=== PATIENT | male | born 1940 | race Asian ===

== ENCOUNTER 2017-08-20 17:45 | Inpatient (IN) ==
[2017-09-14] MEDS ORDERED: Magnesium Sulfate Inj 2 GM in Sodium Chlor 0.9% Inj 96 ML IV.SIG PRN ×2
[2017-09-14] MEDS ORDERED: Insulin NovoLIN Regular Correctional Sugar Inj SQ SCH
[2017-09-14] MEDS ORDERED: Magnesium Sulfate Inj 4 GM in Sodium Chlor 0.9% Inj 92 ML IV.SIG PRN ×2
[2017-09-14] MEDS ORDERED: Magnesium Oxide 400 MG Tablet PO PRN
[2017-09-14] MEDS ORDERED: Labetalol HCl Inj 100 MG/20 ML Vial IV.PUSH PRN
[2017-09-14] MEDS ORDERED: Potassium Phosphate Inj 30 MMOL in Sodium Chlor 0.9% Inj 250 ML IV.SIG PRN ×2
[2017-09-14] MEDS ORDERED: Sodium Phosphate Inj 30 MMOL in Sodium Chlor 0.9% Inj 250 ML IV.SIG PRN ×2
[2017-09-14] MEDS ORDERED: Naloxone Inj 0.4 MG/ML Vial IV.PUSH PRN
[2017-09-14] MEDS ORDERED: Bisacodyl 10 MG Supp RECTAL PRN
[2017-09-14] MEDS ORDERED: Insulin NovoLOG Aspart Correctional Sugar Inj SQ ONE (00:17)
[2017-09-14] MEDS: Potassium Chloride Inj 20 MEQ, Sodium Chloride 23.4% Inj 38.5 MEQ in Water for Inj, Ste... IV.SIG SCH ×2 (03:45→17:44)
[2017-09-14] MEDS: Chlorhexidine Gluconate 2% 1 Pack (2 Cloths) TOPICAL SCH (03:46)
[2017-09-14] MEDS: Oral Hygiene Kit OROPHARYNG SCH ×3 (05:20→17:10)
[2017-09-14] MEDS: Heparin - SQ 10,000 UNITS/ML Vial SQ SCH ×3 (05:35→21:27)
[2017-09-14] MEDS: Artificial Tears Opth Drops 15 ML Bottle EACH EYE SCH ×3 (05:36→21:28)
[2017-09-14] MEDS ORDERED: niCARdipine Inj 25 MG in Sodium Chlor 0.9% Inj 250 ML IV.SIG PRN (09:00)
[2017-09-14] MEDS ORDERED: Digoxin Inj 500 MCG/2 ML Ampul IV.PUSH SCH (09:00)
[2017-09-14] MEDS ORDERED: Potassium Phosphate 500 MG Soluble Tablet PO PRN ×2 (09:00)
[2017-09-14] MEDS ORDERED: Potassium Chlor 40 mEq Premix 40 MEQ/100 ML PIGGYBACK IV.SIG PRN ×2 (09:00)
[2017-09-14] MEDS ORDERED: Potassium Chloride 25 MEQ Effervescent Tablet PO PRN ×2 (09:00)
[2017-09-14] MEDS ORDERED: Senna/Docusate Sodium 8.6/50 MG Tablet PO SCH (09:00)
[2017-09-14] MEDS: MethylPREDNISolone Sod Succinate Inj 40 MG/ML Vial IV.PUSH SCH ×2 (09:17→20:26)
[2017-09-14] MEDS: Pantoprazole Inj 40 MG Vial IV.PUSH SCH (09:19)
[2017-09-14] MEDS: Metoprolol Tartrate 25 MG Tablet PO SCH ×2 (09:19→17:10)
[2017-09-14] MEDS: DIGOXIN 0.125 MG/2.5 ML PO SCH (09:21)
[2017-09-14] MEDS: Beneprotein Powder Packet G-TUBE SCH ×3 (09:22→17:11)
[2017-09-14] MEDS: Chlorhexidine 0.12% Oral Kit 15 ML UDC SWISH-SPIT SCH ×2 (09:39→20:27)
[2017-09-14] MEDS: Polyethylene Glycol 3350 17 GM Packet PO SCH ×2 (09:41→20:28)
[2017-09-14] MEDS: Senna/Docusate Sodium 8.6/50 MG Tablet PO SCH ×2 (09:41→20:29)
[2017-09-14] MEDS: Insulin NovoLOG Aspart Correctional Sugar Inj SQ SCH ×2 (12:00→17:51)
--- NOTE | 2017-09-14 12:00 | P.PNCC ---
Subjective Subjective Remarks/Hospital Course: This is a 77-year-old [place] male/Mandarin speaking only. Date of admission 08/21/2017. Date of consultation 08/23/2017. Past medical history is documented as hypertension, gout and diabetes mellitus. He is on no home medications. He does have remote history of tuberculosis 10 years ago. He quit tobacco use 20 years ago. He presented to [facility] on 08/21/2017 with a 3-4 days of intermittent pain in this region that acutely acutely worsened on 08/20 . They state the pain is in the right upper quadrant and radiates to the upper thorax and around his back. Hospital workup included a CT pulmonary angiogram which revealed bilateral emphysema. Multiple bilateral pulmonary nodules present with the largest in the right lung measuring 2.8 cm and the largest in the left lung measuring 2.6 cm. Severe compressive atelectasis in the right lower lobe. Moderate-sized pulmonary effusion. Pleural thickening in the anterior inferior hemothorax. Right paratracheal lymph node 15 mm. 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 No lytic bone lesions. Also noted significant coronary artery and aortic atherosclerotic calcifications. Patient was evaluated by hematology. Recommended lung biopsy when stable. She has become increasingly short of breath and was [place] [facility] [place] [facility] at 70%. Patient became less responsive and we were consulted. Patient required intubation/central line placement is currently having a right pigtail catheter placed to remove fluid from right lung. 08/24: hypotensive this AM requiring levophed at 8 mcg/min. drained 600cc of serosanguinous fluid out of chest tube. responded successfully to straight-leg challenge. intubated, sedated. remains very critically ill. 08/25: Afebrile. Off all antihypertensives and vasopressin. Currently normal saline at 100 cc an hour. On propofol and fentanyl drips. 08/26: Afebrile. No tonsillar creatinine currently at 20 cc an hour. Remains on increased propofol drip at 40 mcg/kg/min secondary to severe agitation overnight and on attempted spontaneous breathing trials. Will try dexmedetomidine attempt to wean today. 08/27: Worsening lung infiltrates associated with hydration. Afebrile. Known diastolic dysfunction. He appears to be exquisitely sensitive to fluid balance. Presently converting to Precedex and will try spontaneous breathing trials. 08/28: Continued worsening bilateral lung infiltrates. IV fluid has been stopped yesterday, will add additional diuretics. Diffusion gradient worsened, unable to wean from ventilator. 08/29: Mild improvement in lung infiltrates after diuresis without harming renal function. Remains ventilator dependent. Biopsy yesterday, results pending. 08/30: Worsening gas exchange with deteriorating diffusion capacity and requirements for increased inspired oxygen concentration. This all despite 2 L diuresis. Await pathology results. 08/31: Lung infiltrates resolving with diuresis. Continues to behave like diastolic heart failure. Contraction alkalosis is developing will add a carbonic anhydrase inhibitor for a couple of days. T-max 100.8 but for the most part he has been afebrile. Lung mass does appear to be a malignancy. Agree with attempt to rebiopsy at some point. We will continue to diuresis until his kidneys squeak. At 7-10 days of antibiotics it may be best to stop treatment and reculture for fevers. I will defer to the pulmonary service. 09/01: remains intubated and sedated. continues to fail any weaning attempts. consulted palliative to assist in goals of care: may need tracheostomy for further aggressive care. 09/02: palliative meeting with family again today. no improvements. it has been greater than 10 days of full empiric antibiotics: will discontinue and re- culture for fever. 09/03: chest tube on water seal with minimal output. cxr unchanged. CT removed today on my eval. no other changes or improvements. unlikely to have favorable outcome. quite hypercarbic despite full vent support: will make changes to ventilation to assist with hypercarbic. 09/04: Remains sedated, orally intubated on mechanical ventilation. 09/05: Remains sedated, orally intubated on mechanical ventilation. Failed CPAP trials yesterday. 09/06: Sedated, arousable, orally intubated on mechanical ventilation. Failed CPAP trials yesterday. Family wishes to continue aggressive care and desire trach and PEG. 09/07: T-max 100.3. One bowel movement yesterday. Failed CPAP trials yesterday. OG tube plugged overnight and able to place new feeding tube at the present time. We will switch all medications to IV at the present time including amiodarone drip at 0.5 mg/min. Check digoxin level prior to resuming IV. Subjective: 6/25: T-max 99.2. Currently afebrile. One bowel movement overnight. Plan for percutaneous tracheostomy today. GI consult for PEG placement. CT chest revealed small bilateral pleural effusions. Persistent right middle lobe mass which we will consult IR again for rebiopsy. Will ask pulmonary to see again 09/09: Remains on full vent support more critical today increasing oxygen requirement FiO2 at 65 of have increase PEEP to 10 to attempt wean oxygen. Air entry markedly diminished bilaterally. Chest x-ray shows bilateral prominent interstitial infiltrates. Fluid up by approximately 10 kg. I will discontinue half-normal saline. Lasix 40 mg IV 1 09/10: Patient remains critical showing agonal breathing on the ventilator. Bilateral coarse breath sounds. Chest x-ray shows bilateral patchy infiltrates improved left effusion after thoracentesis and removal of 1 L of fluid. However FiO2 requirement remains high at 65%. UO 1.5L in 24 hours. Lab work pending. IV steroids started for probable COPD exacerbation given history of smoking 09/11: Remains critical but slightly more stable. Breathing pattern has improved and oxygenation has improved after starting IV steroids for COPD exacerbation and thoracentesis on 09/09/2017. Currently FiO2 down to 50%, PEEP at 10. We will further wean. Sodium increased to 151 start quarter normal saline, increase Lasix. Family wished to proceed with full code. PEG today 09/12: Remains intubated sedated with propofol. Urine output 1.8 L. BUN/ creatinine slightly increased today 72/1.34. Will reduce Lasix dose also reduce Solu-Medrol. Vent dyssynchrony has improved but FiO2 remains high at 55% 09/13: Off all sedation for 24 hours. Apparently patient notes has had one family is at bedside asking questions. BUN/creatinine slightly improved 71/ 1.14 from 72/1.34. WBC count slightly improved to 20.7. FiO2 at 45% chest x- ray shows some interval improvement. Also Na improved to 147 09/14: Remains intubated off sedation. Slightly tachypneic on pressure support . Urine output approximately 1500 mL in 24 hours Objective Vital Signs / I&O: Vital Signs 09/14/17 00:00 09/14/17 03:50 09/14/17 08:00 Pulse Rate 88 77 Respiratory Rate 23 Pulse Oximetry 95 09/14/17 08:15 09/14/17 08:29 09/14/17 10:00 Pulse Rate 106 H 83 Respiratory Rate 36 H 35 H Pulse Oximetry 95 Intake & Output 09/13/17 09/14/17 09/14/17 18:59 06:59 18:59 Intake Total 1070 / 1070 Output Total 1450 / 1450 Balance -380 / -380 Intake: Tube Feeding 610 / 610 Water Bolus Amount 460 / 460 Output: Urine 1450 / 1450 Other: Date of Last Bowel Movement 09/13/17 09/13/17 Result Diagrams: 09/13/17 03:14 09/13/17 03:14 Other Results: GENERAL: 77-year-old male currently ventilated via trach, appears critical SKIN: Warm and dry. No rash HEAD: Atraumatic. Normocephalic. EYES: Pupils equal and round about 2 mm bilaterally reactive. No scleral icterus. No injection or drainage. ENT: No nasal bleeding or discharge. Mucous membranes dry. NECK: Trachea midline. Trach site CDI CARDIOVASCULAR: Heart rate well controlled now. S1, S3 no S4. Without murmur. No JVD LUNGS: Coarse rhonchorous breath sounds, wheezes bilaterally improved. On PSV GASTROINTESTINAL: Abdomen soft, non-tender, nondistended. No guarding. MUSCULOSKELETAL: Extremities without significant peripheral edema. No obvious deformities. NEUROLOGICAL: Off all sedation. Slight withdrawal to pain. Appears to be aware when family is talking to him. He nods his head when family asked him questions Assessment and Plan - Assessment and Plan Plan: A/P Assessment and Plan Neuro/Psych: Acute toxic metabolic encephalopathy Head CT 08/23: 2 questionable tiny focal hemorrhages. MRI of brain 08/26 chronic small vessel ischemic and atrophic changes CT brain 09/05 revealed bilateral maxillary sinusitis. No other acute finding EEG 09/03 revealed severe encephalopathy. No epileptiform activity Acetaminophen 650 mg by tube every 6 hours as needed fever versus. Ofirmev 1 g IV every 6 hours as needed n.p.o. Off all sedation for last 24 hours CV: Uncontrolled hypertension septic shock- resolved Atherosclerotic coronary artery disease Atrial fibrillation Elevated troponin downward trend Fluid overload Currently off all vasopressors, patient is hypertensive On IV Lasix 20 mg IV daily Free water replacement with 1/4 NS at 75 ml per hour. Free H2O 200 ml q6h Use Cardene infusion if needed to control blood pressure Amiodarone Discontinued 09/07 secondary to bradycardia and pauses Continue metoprolol tartrate 2.5 mg IV every 6 hours, changed to metoprolol 25 mg p.o. to Resumed digoxin at 0.125 mg daily with daily digoxin check for 3 days Dig level 09/07.- 2.1. Recheck 09/09 1.4, 0.8 09/12/17 Home medication is NITRENDIPINE 10 mg by mouth daily Resp: Acute hypoxic hypercapnic respiratory failure COPD with exacerbation/Emphysema Bilateral pleural effusion/status post chest tube right-sided transudative in nature. Chest tube removed 09/04 Multiple bilateral pulmonary masses vs infiltrate, RML mass vs consolidation Pulmonary edema Current vent setting PRVC. Attempt pressure support ventilation with high support 01/11. Continue IV Solu-Medrol 40 q12, inhaled budesonide Albuterol/ipratropium aerosols every 4 hours with albuterol aerosols every 2 hours as needed dyspnea CT pulmonary angiogram revealed 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 Right middle lobe 2.7 x 2.2 x 7's. Spiculated. Left lingula is 3.4 x 3.20 cm. Underlying pronounced emphysematous type changes throughout lung larios. Right pleural effusion. CT thorax 09/08 revealed multiple areas of consolidation bilaterally. Mild bilateral pleural effusions. Evidence of prior granulomatous disease. Focal consolidation or mass in the right middle lobe that appears unchanged. Lung mass biopsied on August 28 -results - CHRONIC INFLAMMATORY AND REACTIVE FIBROBLASTIC TISSUE CONTAINING ENTRAPPED BENIGN EPITHELIUM reconsult IR 09/08 for repeat biopsy Followed by Dr. Hrady/pulmonology. Reconsulted 09/08, recommended repeat CT in 4 weeks. Hold off the IR guided biopsy time due to unstable respiratory status s/p percutaneous tracheostomy 09/08 ([place]) Status post thoracentesis left side 09/09 with 1 L fluid removed. No evidence of infection Will need LTAC placement GI: Hypoalbuminemia Elevated total protein s/p PEG 09/11. Tolerating tube feeds with Glucerna, free water flushes today IV pantoprazole. Docusate sodium/senna 1 tablet twice daily for bowel regimen along with polyethylene glycol 17 g Twice daily and lactulose 30 cc twice daily : Urinary retention, possible urinary stricture Acute kidney injury Maintain Larson catheter. Monitor urine output, Accurate I's and O's significant difficulty due to obstruction which may be urethral stricture which prevented serial i/o. replaced Larson catheter. IV Lasix dose reduced due to worsening BUN/creatinine as above Avoid nephrotoxic drugs Endo: Diabetes mellitus Hyperglycemia History of gout Sliding scale insulin with NovoLog low regimen to maintain euglycemia Holding home medications of allopurinol 300 mg daily and colchicine 0.6 mg as needed Holding home medications of metformin 5 mg twice daily Heme: Leukocytosis Normocytic anemia Monitor CBC daily. Follow trends Coags within normal limits ID: s/p full course abx. Status post bronchoscopy 09/03 cultures negative Blood culture from 08/26 no growth to date Sputum 09/05 no growth Influenza a and B 09/07 Bronchial wash negative FEN: Hypernatremia Quarter normal saline and free water replacement as above Replace electrolytes as clinically indicated per ICU electrolyte protocol Monitor CMP Access Peripheral IV. Central line if indicated Prophylaxis -GI -lV pantoprazole while in p.o. DVT -SCD/heparin subcutaneous 5000 units 3 times a day. No signs of bleeding on MRI brain Patient remains critical but showing some signs of improvement including improving oxygenation after starting IV steroids for COPD exacerbation. Attempt slow ventilator wean. Prognosis appears poor with multiorgan dysfunction, and underlying probable lung CA-previous biopsy was negative Level 3
[2017-09-14] MEDS ORDERED: Dextrose 50% in Water 50 ML Vial IV.PUSH PRN ×2 (13:23)
[2017-09-15] MEDS: Oral Hygiene Kit OROPHARYNG SCH ×4 (00:42→16:26)
[2017-09-15] MEDS: Metoprolol Tartrate 25 MG Tablet PO SCH ×3 (01:37→16:27)
[2017-09-15 03:51] LABS: Hematocrit 31.3 % (39.0-51.0); Mean Corpuscular Hemoglobin 28.2 pg (27.0-34.0); Mean Platelet Volume 7.7 fL (7.0-11.0); Platelet Count 362 th/mm3 (150-450); Red Blood Count 3.56 mil/mm3 (4.50-5.90); Red Cell Distribution Width 15.2 % (11.6-17.2)
[2017-09-15] MEDS: Chlorhexidine Gluconate 2% 1 Pack (2 Cloths) TOPICAL SCH (04:29)
[2017-09-15] MEDS: Potassium Chloride Inj 20 MEQ, Sodium Chloride 23.4% Inj 38.5 MEQ in Water for Inj, Ste... IV.SIG SCH (04:30)
[2017-09-15 04:34] LABS: Alanine Aminotransferase 37 U/L (12-78); Albumin 1.8 g/dL (3.4-5.0); Alkaline Phosphatase 135 U/L (45-117); Anion Gap 7 meq/L (5-15); Aspartate Aminotransferase 23 U/L (15-37); Blood Urea Nitrogen 56 mg/dL (7-18); Calcium 7.9 mg/dL (8.5-10.1); Carbon Dioxide 32.2 meq/L (21.0-32.0); Chloride 102 meq/L (98-107); Digoxin 1.7 ng/mL (0.8-2.0); Glomerular Filtration Rate 80 mL/min (>89); Glucose,Random 294 mg/dL (74-106); Potassium 5.1 meq/L (3.5-5.1); Sodium 141 meq/L (136-145); Total Protein 7.2 g/dL (6.4-8.2)
[2017-09-15] MEDS: Insulin NovoLOG Aspart Correctional Sugar Inj SQ SCH ×3 (06:23→18:20)
[2017-09-15] MEDS: Heparin - SQ 10,000 UNITS/ML Vial SQ SCH ×3 (06:26→22:28)
[2017-09-15] MEDS: Artificial Tears Opth Drops 15 ML Bottle EACH EYE SCH ×3 (06:27→22:29)
[2017-09-15] MEDS: MethylPREDNISolone Sod Succinate Inj 40 MG/ML Vial IV.PUSH SCH ×2 (08:47→22:27)
[2017-09-15] MEDS: Pantoprazole Inj 40 MG Vial IV.PUSH SCH (08:47)
[2017-09-15] MEDS: DIGOXIN 0.125 MG/2.5 ML PO SCH (08:52)
[2017-09-15] MEDS: Polyethylene Glycol 3350 17 GM Packet PO SCH ×2 (08:53→22:15)
[2017-09-15] MEDS: Beneprotein Powder Packet G-TUBE SCH ×3 (08:53→18:29)
[2017-09-15] MEDS: Chlorhexidine 0.12% Oral Kit 15 ML UDC SWISH-SPIT SCH ×2 (08:53→22:27)
[2017-09-15] MEDS: Senna/Docusate Sodium 8.6/50 MG Tablet PO SCH ×2 (08:54→22:15)
--- NOTE | 2017-09-15 10:17 | P.PNCC ---
Subjective Subjective Remarks/Hospital Course: This is a 77-year-old Citizen Of [place] male/Mandarin speaking only. Date of admission 08/21/2017. Date of consultation 08/23/2017. Past medical history is documented as hypertension, gout and diabetes mellitus. He is on no home medications. He does have remote history of tuberculosis 10 years ago. He quit tobacco use 20 years ago. He presented to [facility] on 08/21/2017 with a 3-4 days of intermittent pain in this region that acutely acutely worsened on 08/20 . They state the pain is in the right upper quadrant and radiates to the upper thorax and around his back. Hospital workup included a CT pulmonary angiogram which revealed bilateral emphysema. Multiple bilateral pulmonary nodules present with the largest in the right lung measuring 2.8 cm and the largest in the left lung measuring 2.6 cm. Severe compressive atelectasis in the right lower lobe. Moderate-sized pulmonary effusion. Pleural thickening in the anterior inferior hemothorax. Right paratracheal lymph node 15 mm. 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 No lytic bone lesions. Also noted significant coronary artery and aortic atherosclerotic calcifications. Patient was evaluated by hematology. Recommended lung biopsy when stable. She has become increasingly short of breath and was transferred from a [facility] to [facility] at 70%. Patient became less responsive and we were consulted. Patient required intubation/central line placement is currently having a right pigtail catheter placed to remove fluid from right lung. 08/24: hypotensive this AM requiring levophed at 8 mcg/min. drained 600cc of serosanguinous fluid out of chest tube. responded successfully to straight-leg challenge. intubated, sedated. remains very critically ill. 08/25: Afebrile. Off all antihypertensives and vasopressin. Currently normal saline at 100 cc an hour. On propofol and fentanyl drips. 08/26: Afebrile. No tonsillar creatinine currently at 20 cc an hour. Remains on increased propofol drip at 40 mcg/kg/min secondary to severe agitation overnight and on attempted spontaneous breathing trials. Will try dexmedetomidine attempt to wean today. 08/27: Worsening lung infiltrates associated with hydration. Afebrile. Known diastolic dysfunction. He appears to be exquisitely sensitive to fluid balance. Presently converting to Precedex and will try spontaneous breathing trials. 08/28: Continued worsening bilateral lung infiltrates. IV fluid has been stopped yesterday, will add additional diuretics. Diffusion gradient worsened, unable to wean from ventilator. 08/29: Mild improvement in lung infiltrates after diuresis without harming renal function. Remains ventilator dependent. Biopsy yesterday, results pending. 08/30: Worsening gas exchange with deteriorating diffusion capacity and requirements for increased inspired oxygen concentration. This all despite 2 L diuresis. Await pathology results. 08/31: Lung infiltrates resolving with diuresis. Continues to behave like diastolic heart failure. Contraction alkalosis is developing will add a carbonic anhydrase inhibitor for a couple of days. T-max 100.8 but for the most part he has been afebrile. Lung mass does appear to be a malignancy. Agree with attempt to rebiopsy at some point. We will continue to diuresis until his kidneys squeak. At 7-10 days of antibiotics it may be best to stop treatment and reculture for fevers. I will defer to the pulmonary service. 09/01: remains intubated and sedated. continues to fail any weaning attempts. consulted palliative to assist in goals of care: may need tracheostomy for further aggressive care. 09/02: palliative meeting with family again today. no improvements. it has been greater than 10 days of full empiric antibiotics: will discontinue and re- culture for fever. 09/03: chest tube on water seal with minimal output. cxr unchanged. CT removed today on my eval. no other changes or improvements. unlikely to have favorable outcome. quite hypercarbic despite full vent support: will make changes to ventilation to assist with hypercarbic. 09/04: Remains sedated, orally intubated on mechanical ventilation. 09/05: Remains sedated, orally intubated on mechanical ventilation. Failed CPAP trials yesterday. 09/06: Sedated, arousable, orally intubated on mechanical ventilation. Failed CPAP trials yesterday. Family wishes to continue aggressive care and desire trach and PEG. 09/07: T-max 100.3. One bowel movement yesterday. Failed CPAP trials yesterday. OG tube plugged overnight and able to place new feeding tube at the present time. We will switch all medications to IV at the present time including amiodarone drip at 0.5 mg/min. Check digoxin level prior to resuming IV. Subjective: 6/25: T-max 99.2. Currently afebrile. One bowel movement overnight. Plan for percutaneous tracheostomy today. GI consult for PEG placement. CT chest revealed small bilateral pleural effusions. Persistent right middle lobe mass which we will consult IR again for rebiopsy. Will ask pulmonary to see again 09/09: Remains on full vent support more critical today increasing oxygen requirement FiO2 at 65 of have increase PEEP to 10 to attempt wean oxygen. Air entry markedly diminished bilaterally. Chest x-ray shows bilateral prominent interstitial infiltrates. Fluid up by approximately 10 kg. I will discontinue half-normal saline. Lasix 40 mg IV 1 09/10: Patient remains critical showing agonal breathing on the ventilator. Bilateral coarse breath sounds. Chest x-ray shows bilateral patchy infiltrates improved left effusion after thoracentesis and removal of 1 L of fluid. However FiO2 requirement remains high at 65%. UO 1.5L in 24 hours. Lab work pending. IV steroids started for probable COPD exacerbation given history of smoking 09/11: Remains critical but slightly more stable. Breathing pattern has improved and oxygenation has improved after starting IV steroids for COPD exacerbation and thoracentesis on 09/09/2017. Currently FiO2 down to 50%, PEEP at 10. We will further wean. Sodium increased to 151 start quarter normal saline, increase Lasix. Family wished to proceed with full code. PEG today 09/12: Remains intubated sedated with propofol. Urine output 1.8 L. BUN/ creatinine slightly increased today 72/1.34. Will reduce Lasix dose also reduce Solu-Medrol. Vent dyssynchrony has improved but FiO2 remains high at 55% 09/13: Off all sedation for 24 hours. Apparently patient notes has had one family is at bedside asking questions. BUN/creatinine slightly improved 71/ 1.14 from 72/1.34. WBC count slightly improved to 20.7. FiO2 at 45% chest x- ray shows some interval improvement. Also Na improved to 147 09/14: Remains intubated off sedation. Slightly tachypneic on pressure support . Urine output approximately 1500 mL in 24 hours 09/15: Patient clearly more awake today seems to understand some of the commands. Concern about quadriparesis patient is not able to withdrawal to pain 4, even though it appears he does feel the pain. MRI of the C-spine ordered. Neurology consulted. Otherwise BUN/creatinine slightly improved Objective Vital Signs / I&O: Vital Signs 09/14/17 12:00 09/14/17 14:00 09/14/17 16:00 Temperature 98.9 F 99 F Pulse Rate 87 83 81 Respiratory Rate 17 16 Blood Pressure 146/79 H 128/63 Pulse Oximetry 94 L 97 09/14/17 16:38 09/14/17 18:00 09/14/17 20:00 Temperature 98.2 F Pulse Rate 76 89 Respiratory Rate 16 24 Blood Pressure 136/65 Pulse Oximetry 97 09/14/17 20:41 09/14/17 22:00 09/14/17 23:59 Temperature Pulse Rate 57 L Respiratory Rate 19 19 Blood Pressure 128/59 L Pulse Oximetry 97 97 09/15/17 00:00 09/15/17 01:56 09/15/17 01:57 Temperature 97.7 F Pulse Rate 80 91 H 90 Respiratory Rate 25 H Blood Pressure 125/62 Pulse Oximetry 09/15/17 03:35 09/15/17 04:00 09/15/17 07:39 Temperature Pulse Rate 82 Respiratory Rate 27 H 33 H Blood Pressure Pulse Oximetry 97 97 09/15/17 07:46 09/15/17 08:24 Temperature 99.2 F Pulse Rate 99 H 97 H Respiratory Rate 31 H 30 H Blood Pressure 143/69 H Pulse Oximetry 96 Intake & Output 09/14/17 09/15/17 09/15/17 18:59 06:59 18:59 Intake Total 9.625 / 2069.625 1919.625 / 1919.625 Output Total 1650 / 1650 50 / 50 Balance 419.625 / 095.729 2635.625 / 1869.625 Weight 72.7 kg Intake: IV 1019.625 / 5499.931 1787.625 / 1019.625 KCl Inj 20 MEQ Sodium Chloride 1019.625 / 6119.046 6722.625 / 1019.625 23.4% Inj 38.5 MEQ In Sterile Water for Inj 1,000 ML @ 75 mls /hr IV.SIG Q13H [facility] Rx#: [id number] Tube Feeding 650 / 650 500 / 500 Tube Irrigant 400 / 400 Water Bolus Amount 400 / 400 Output: Stool 50 / 50 50 / 50 Urine Amount (Catheter) 1600 / 1600 Indwelling Urethral Catheter 1600 / 1600 Other: Date of Last Bowel Movement 09/14/17 09/14/17 09/14/17 Result Diagrams: 09/15/17 03:18 09/15/17 03:18 Objective Remarks: GENERAL: 77-year-old male currently ventilated via trach, more awake today SKIN: Warm and dry. No rash HEAD: Atraumatic. Normocephalic. EYES: Pupils equal and round about 2 mm bilaterally reactive. No scleral icterus. No injection or drainage. ENT: No nasal bleeding or discharge. Mucous membranes dry. NECK: Trachea midline. Trach site CDI CARDIOVASCULAR: Heart rate well controlled now. S1, S3 no S4. Without murmur. No JVD LUNGS: Coarse rhonchorous breath sounds, wheezes bilaterally improved. On PSV GASTROINTESTINAL: Abdomen soft, non-tender, nondistended. No guarding. MUSCULOSKELETAL: Extremities without significant peripheral edema. No obvious deformities. NEUROLOGICAL: Off all sedation. Eyes spontaneously open, appears to understand verbal commands. Unable to move upper and lower extremity. Able to slightly struck shoulders. No withdrawal of extremities 4 Assessment and Plan - Assessment and Plan Plan: A/P Assessment and Plan Neuro/Psych: Acute toxic metabolic encephalopathy Quadriparesis on exam Check MRI of the C-spine to rule out structural lesions Consult neurology for quadriparesis Head CT 08/23: 2 questionable tiny focal hemorrhages. MRI of brain 08/26 chronic small vessel ischemic and atrophic changes CT brain 09/05 revealed bilateral maxillary sinusitis. No other acute finding EEG 09/03 revealed severe encephalopathy. No epileptiform activity Acetaminophen 650 mg by tube every 6 hours as needed fever versus. Ofirmev 1 g IV every 6 hours as needed n.p.o. Off all sedation PT/OT CV: Uncontrolled hypertension septic shock- resolved Atherosclerotic coronary artery disease Atrial fibrillation Elevated troponin downward trend Fluid overload Currently off all vasopressors, patient is hypertensive Continue IV Lasix 20 mg IV daily Free water replacement with 1/4 NS at 75 ml per hour-DC today. Use Cardene infusion if needed to control blood pressure Amiodarone Discontinued 09/07 secondary to bradycardia and pauses Continue metoprolol 25 mg p.o. q8h Resumed digoxin at 0.125 mg daily with daily digoxin check for 3 days, today 1.7 -HOLD DIGOXIN 09/15/17 Dig level 09/07.- 2.1. Recheck 09/09 1.4, 0.8 09/12/17 (Home medication is NITRENDIPINE 10 mg by mouth daily) Resp: Acute hypoxic hypercapnic respiratory failure COPD with exacerbation/Emphysema Bilateral pleural effusion/status post chest tube right-sided transudative in nature. Chest tube removed 09/04 Multiple bilateral pulmonary masses vs infiltrate, RML mass vs consolidation Pulmonary edema Tolerating pressure support ventilation, slightly tachypneic Continue IV Solu-Medrol 40 q12, inhaled budesonide Albuterol/ipratropium aerosols every 4 hours with albuterol aerosols every 2 hours as needed dyspnea CT pulmonary angiogram revealed 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 Right middle lobe 2.7 x 2.2 x 7's. Spiculated. Left lingula is 3.4 x 3.20 cm. Underlying pronounced emphysematous type changes throughout lung larios. Right pleural effusion. CT thorax 09/08 revealed multiple areas of consolidation bilaterally. Mild bilateral pleural effusions. Evidence of prior granulomatous disease. Focal consolidation or mass in the right middle lobe that appears unchanged. Lung mass biopsied on August 28 -results - CHRONIC INFLAMMATORY AND REACTIVE FIBROBLASTIC TISSUE CONTAINING ENTRAPPED BENIGN EPITHELIUM reconsult IR 09/08 for repeat biopsy Followed by Dr. Hardy/pulmonology. Reconsulted 09/08, recommended repeat CT in 4 weeks. Hold off the IR guided biopsy time due to unstable respiratory status s/p percutaneous tracheostomy 09/08 ([place]) Status post thoracentesis left side 09/09 with 1 L fluid removed. No evidence of infection Will need LTAC placement GI: Hypoalbuminemia Elevated total protein s/p PEG 09/11. Tolerating tube feeds with Glucerna, free water flushes today IV pantoprazole. Docusate sodium/senna 1 tablet twice daily for bowel regimen along with polyethylene glycol 17 g Twice daily and lactulose 30 cc twice daily : Urinary retention, possible urinary stricture Acute kidney injury Maintain Larson catheter. Monitor urine output, Accurate I's and O's significant difficulty due to obstruction which may be urethral stricture which prevented serial i/o. replaced Larson catheter. IV Lasix dose reduced due to worsening BUN/creatinine as above Avoid nephrotoxic drugs Endo: Diabetes mellitus Hyperglycemia History of gout Sliding scale insulin with NovoLog low regimen to maintain euglycemia Holding home medications of allopurinol 300 mg daily and colchicine 0.6 mg as needed Holding home medications of metformin 5 mg twice daily Heme: Leukocytosis Normocytic anemia Monitor CBC daily. Follow trends Coags within normal limits ID: s/p full course abx. Status post bronchoscopy 09/03 cultures negative Blood culture from 08/26 no growth to date Sputum 09/05 no growth Influenza a and B 09/07 Bronchial wash negative FEN: Hypernatremia-resolved Quarter normal saline DCd Replace electrolytes as clinically indicated per ICU electrolyte protocol Monitor CMP Access Peripheral IV. Central line if indicated Prophylaxis -GI -lV pantoprazole while in p.o. DVT -SCD/heparin subcutaneous 5000 units 3 times a day. No signs of bleeding on MRI brain Patient remains critical now with sedation wearing off patient is more awake alert but appears to have quadriparesis. MRI of the C-spine ordered neurology consult ordered this could be functional versus structural CCT 32 MIN
--- NOTE | 2017-09-15 12:57 | MR ---
EXAM DATE: 09/15/2017 12:34 PM EDT AGE/SEX: 77 years / Male INDICATIONS: . Inability to move extremities. CLINICAL DATA: This is the patient's subsequent encounter. Patient reports that signs and symptoms h ave been present for 1 month and indicates a pain score of Nonresponsive. MEDICAL/SURGICAL HISTORY: Hypertension. Diabetes mellitus type II. Emphysema. TB, Afib . Pr ostate surgery COMPARISON: No prior exams available for comparison. TECHNIQUE: Multiplanar, multisequence MRI examination of the cervical spine was performed without co ntrast. FINDINGS: Vertebrae: There is extensive degenerative changes throughout the cervical spine. There is disc dege neration with disc space narrowing at all levels. No abnormal bone marrow edema is demonstrated. Alignment: Normal. Cord: There is abnormal increased signal within the cord at C3-4 and C4-5 suggestive of myelomalacia . Post Fossa: The cerebellar tonsils are normal in position. C2-C3: Mild central bulging. The neural foramina are patent bilaterally. C3-C4: Moderate diffuse broad-based bulging with narrowing of the neural foramina bilaterally. Bilat eral facet arthritis. This is causing some moderate spinal canal stenosis. C4-C5: Central disc protrusion with a disc osteophyte complex. There is some narrowing of the neural foramina bilaterally. There is bilateral facet arthritis. Focal severe spinal canal stenosis. C5-C6: Central bulging/protrusion with disc osteophyte complex. Mild narrowing of the left neural fo ramina. The right neural foramina is patent. Bilateral facet arthritis. C6-C7: Moderate diffuse broad-based bulging with narrowing of the neural foramina bilaterally, right greater than left. Bilateral facet arthritis. Moderate spinal canal stenosis. C7-T1: Mild broad-based bulging. The neural foramina appear patent. Bilateral facet arthritis. CONCLUSION: 1. There appears to be focal severe spinal canal stenosis at C4-5. There is increased signal within the body of the spinal cord at this level most likely representing some myelomalacia. 2. Moderate diffuse broad-based bulging at C3-4 with some mild increased signal in the spinal cord a t this level. 3. Moderate spinal canal stenosis at C6-C7 4. Bilateral facet arthritis at multiple levels. 5. Extensive primary degenerative changes with disc degeneration and disc space narrowing throughout the entire cervical spine. Electronically signed by: Kristian Garza MD 09/15/2017 12:56 PM EDT
[2017-09-15] MEDS ORDERED: Insulin Detemir Inj 1,000 UNIT/10 ML Vial SQ SCH (21:00)
[2017-09-16] MEDS: Oral Hygiene Kit OROPHARYNG SCH ×4 (00:52→17:47)
[2017-09-16] MEDS: Metoprolol Tartrate 25 MG Tablet PO SCH ×3 (00:52→17:49)
[2017-09-16] MEDS: Insulin NovoLOG Aspart Correctional Sugar Inj SQ SCH ×6 (00:59→21:00)
[2017-09-16] MEDS: Chlorhexidine Gluconate 2% 1 Pack (2 Cloths) TOPICAL SCH (04:07)
--- NOTE | 2017-09-16 04:36 | XR ---
EXAM DATE: 09/16/2017 3:56 AM EDT AGE/SEX: 77 years / Male INDICATIONS: Respiratory Disease CLINICAL DATA: This is the patient's subsequent encounter. Patient reports that signs and symptoms h ave been present for 1 month and indicates a pain score of Nonresponsive. MEDICAL/SURGICAL HISTORY: Non-responsive. Non-responsive. COMPARISON: [facility] [place], CHEST SINGLE AP, 09/13/2017. . FINDINGS: Tracheostomy in place. Mild patient rotation towards the left. There is increasing airspace infiltrat es in the mid left lung. The right lung remains clear. Minimal blunting of the costophrenic angles bi laterally with meniscal base suggesting pleural effusions. CONCLUSION: Increasing partially consolidated infiltrates left midlung. Electronically signed by: Daniel Stanley MD 09/16/2017 4:35 AM EDT
[2017-09-16 06:27] LABS: Hematocrit 33.1 % (39.0-51.0); Hemoglobin 10.8 gm/dL (13.0-17.0); Mean Corpuscular HGB Conc 32.5 % (32.0-36.0); Mean Corpuscular Hemoglobin 29.2 pg (27.0-34.0); Mean Corpuscular Volume 89.9 fL (80.0-100.0); Mean Platelet Volume 8.1 fL (7.0-11.0); Platelet Count 373 th/mm3 (150-450); Red Blood Count 3.69 mil/mm3 (4.50-5.90); Red Cell Distribution Width 14.8 % (11.6-17.2); White Blood Count 27.1 th/mm3 (4.0-11.0)
[2017-09-16 06:31] LABS: Albumin 1.8 g/dL (3.4-5.0); Anion Gap 8 meq/L (5-15); Aspartate Aminotransferase 25 U/L (15-37); Blood Urea Nitrogen 59 mg/dL (7-18); Calcium 8.6 mg/dL (8.5-10.1); Carbon Dioxide 32.3 meq/L (21.0-32.0); Chloride 101 meq/L (98-107); Glomerular Filtration Rate 81 mL/min (>89); Glucose,Random 266 mg/dL (74-106); Potassium 5.2 meq/L (3.5-5.1); Sodium 141 meq/L (136-145)
[2017-09-16 06:32] LABS: Alanine Aminotransferase 39 U/L (12-78)
[2017-09-16 06:46] LABS: Alkaline Phosphatase 137 U/L (45-117); Digoxin 1.6 ng/mL (0.8-2.0); Total Protein 7.3 g/dL (6.4-8.2)
[2017-09-16] MEDS: Artificial Tears Opth Drops 15 ML Bottle EACH EYE SCH ×3 (06:52→21:50)
[2017-09-16] MEDS: Heparin - SQ 10,000 UNITS/ML Vial SQ SCH ×3 (06:52→21:47)
--- NOTE | 2017-09-16 07:37 | MB ---
cc: Frank Carvalho MD, PhD DATE: 09/15/2017 REASON FOR CONSULTATION: Weakness. HISTORY OF PRESENT ILLNESS: This is a pleasant 77-year-old man with history of diabetes, hypertension, gout, who was admitted to the ER for evaluation of right-sided abdominal and thoracic pain. He had a CT of the chest showing multiple pulmonary masses consistent with probable metastatic disease with small pleural effusions. CT of the abdomen and pelvis negative for any acute process. The patient is status post surgery for biopsy of the masses. The pathology apparently was pending. Now he is relating significant weakness, not moving the arms or legs, whereas before he had strength in this area. NEUROLOGICAL EXAMINATION: VITAL SIGNS: Blood pressure is 156/77, temperature is 99.6 degrees. HIGHER CORTICAL FUNCTION: Lethargic. Following simple commands. CRANIAL NERVES: Grossly intact. MOTOR EXAM: He has no movement of the arms or legs. REFLEXES: Absent in both upper and lower extremities. Babinski is equivocal. SENSORY exam cannot be conducted. IMAGING STUDY: Brain MRI done on 08/25/2017: Chronic small vessel ischemic changes. No mass present. He had an MRI of the cervical spine and the result is currently pending. IMPRESSION: Significant weakness of both upper and lower extremities. PLAN: We will follow up on the MRI of the cervical spine to be sure there is no metastatic disease causing cord compression. If that is negative, may need to image the thoracic and lumbar spine and possibly consider lumbar puncture to rule out carcinomatous meningitis. Frank Carvalho MD, PhD JAYE/SB , 04:37 PM , 04:51 PM
--- NOTE | 2017-09-16 09:04 | P.PNCC ---
Subjective Subjective Remarks/Hospital Course: This is a 77-year-old Bah[place]ian male/Mandarin speaking only. Date of admission 08/21/2017. Date of consultation 08/23/2017. Past medical history is documented as hypertension, gout and diabetes mellitus. He is on no home medications. He does have remote history of tuberculosis 10 years ago. He quit tobacco use 20 years ago. He presented to [facility] on 08/21/2017 with a 3-4 days of intermittent pain in this region that acutely acutely worsened on 08/20 . They state the pain is in the right upper quadrant and radiates to the upper thorax and around his back. Hospital workup included a CT pulmonary angiogram which revealed bilateral emphysema. Multiple bilateral pulmonary nodules present with the largest in the right lung measuring 2.8 cm and the largest in the left lung measuring 2.6 cm. Severe compressive atelectasis in the right lower lobe. Moderate-sized pulmonary effusion. Pleural thickening in the anterior inferior hemothorax. Right paratracheal lymph node 15 mm. 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 No lytic bone lesions. Also noted significant coronary artery and aortic atherosclerotic calcifications. Patient was evaluated by hematology. Recommended lung biopsy when stable. She has become increasingly short of breath and was transferred from a [facility] to Bi[facility] at 70%. Patient became less responsive and we were consulted. Patient required intubation/central line placement is currently having a right pigtail catheter placed to remove fluid from right lung. 08/24: hypotensive this AM requiring levophed at 8 mcg/min. drained 600cc of serosanguinous fluid out of chest tube. responded successfully to straight-leg challenge. intubated, sedated. remains very critically ill. 08/25: Afebrile. Off all antihypertensives and vasopressin. Currently normal saline at 100 cc an hour. On propofol and fentanyl drips. 08/26: Afebrile. No tonsillar creatinine currently at 20 cc an hour. Remains on increased propofol drip at 40 mcg/kg/min secondary to severe agitation overnight and on attempted spontaneous breathing trials. Will try dexmedetomidine attempt to wean today. 08/27: Worsening lung infiltrates associated with hydration. Afebrile. Known diastolic dysfunction. He appears to be exquisitely sensitive to fluid balance. Presently converting to Precedex and will try spontaneous breathing trials. 08/28: Continued worsening bilateral lung infiltrates. IV fluid has been stopped yesterday, will add additional diuretics. Diffusion gradient worsened, unable to wean from ventilator. 08/29: Mild improvement in lung infiltrates after diuresis without harming renal function. Remains ventilator dependent. Biopsy yesterday, results pending. 08/30: Worsening gas exchange with deteriorating diffusion capacity and requirements for increased inspired oxygen concentration. This all despite 2 L diuresis. Await pathology results. 08/31: Lung infiltrates resolving with diuresis. Continues to behave like diastolic heart failure. Contraction alkalosis is developing will add a carbonic anhydrase inhibitor for a couple of days. T-max 100.8 but for the most part he has been afebrile. Lung mass does appear to be a malignancy. Agree with attempt to rebiopsy at some point. We will continue to diuresis until his kidneys squeak. At 7-10 days of antibiotics it may be best to stop treatment and reculture for fevers. I will defer to the pulmonary service. 09/01: remains intubated and sedated. continues to fail any weaning attempts. consulted palliative to assist in goals of care: may need tracheostomy for further aggressive care. 09/02: palliative meeting with family again today. no improvements. it has been greater than 10 days of full empiric antibiotics: will discontinue and re- culture for fever. 09/03: chest tube on water seal with minimal output. cxr unchanged. CT removed today on my eval. no other changes or improvements. unlikely to have favorable outcome. quite hypercarbic despite full vent support: will make changes to ventilation to assist with hypercarbic. 09/04: Remains sedated, orally intubated on mechanical ventilation. 09/05: Remains sedated, orally intubated on mechanical ventilation. Failed CPAP trials yesterday. 09/06: Sedated, arousable, orally intubated on mechanical ventilation. Failed CPAP trials yesterday. Family wishes to continue aggressive care and desire trach and PEG. 09/07: T-max 100.3. One bowel movement yesterday. Failed CPAP trials yesterday. OG tube plugged overnight and able to place new feeding tube at the present time. We will switch all medications to IV at the present time including amiodarone drip at 0.5 mg/min. Check digoxin level prior to resuming IV. Subjective: 6/25: T-max 99.2. Currently afebrile. One bowel movement overnight. Plan for percutaneous tracheostomy today. GI consult for PEG placement. CT chest revealed small bilateral pleural effusions. Persistent right middle lobe mass which we will consult IR again for rebiopsy. Will ask pulmonary to see again 09/09: Remains on full vent support more critical today increasing oxygen requirement FiO2 at 65 of have increase PEEP to 10 to attempt wean oxygen. Air entry markedly diminished bilaterally. Chest x-ray shows bilateral prominent interstitial infiltrates. Fluid up by approximately 10 kg. I will discontinue half-normal saline. Lasix 40 mg IV 1 09/10: Patient remains critical showing agonal breathing on the ventilator. Bilateral coarse breath sounds. Chest x-ray shows bilateral patchy infiltrates improved left effusion after thoracentesis and removal of 1 L of fluid. However FiO2 requirement remains high at 65%. UO 1.5L in 24 hours. Lab work pending. IV steroids started for probable COPD exacerbation given history of smoking 09/11: Remains critical but slightly more stable. Breathing pattern has improved and oxygenation has improved after starting IV steroids for COPD exacerbation and thoracentesis on 09/09/2017. Currently FiO2 down to 50%, PEEP at 10. We will further wean. Sodium increased to 151 start quarter normal saline, increase Lasix. Family wished to proceed with full code. PEG today 09/12: Remains intubated sedated with propofol. Urine output 1.8 L. BUN/ creatinine slightly increased today 72/1.34. Will reduce Lasix dose also reduce Solu-Medrol. Vent dyssynchrony has improved but FiO2 remains high at 55% 09/13: Off all sedation for 24 hours. Apparently patient notes has had one family is at bedside asking questions. BUN/creatinine slightly improved 71/ 1.14 from 72/1.34. WBC count slightly improved to 20.7. FiO2 at 45% chest x- ray shows some interval improvement. Also Na improved to 147 09/14: Remains intubated off sedation. Slightly tachypneic on pressure support . Urine output approximately 1500 mL in 24 hours 09/15: Patient clearly more awake today seems to understand some of the commands. Concern about quadriparesis patient is not able to withdrawal to pain 4, even though it appears he does feel the pain. MRI of the C-spine ordered. Neurology consulted. Otherwise BUN/creatinine slightly improved 09/16: Patient remains quadriparetic, slight movement of the left upper extremity. MRI of the C-spine shows focal severe spinal canal stenosis at C4-5 , with increased signal within the body of the spinal cord at this level most likely representing some myelomalacia. Moderate diffuse broad-based bulging at C3-4 with some mild increased signal in the spinal cord at this level. Moderate spinal canal stenosis at C6-C7. Also there is evidence of tracheostomy site infection. Explained MRI findings to son and patient's using electronic photographic supervisor. Discussed with Dr. Carvalho. Increase Solu-Medrol to 250 mg IV every 6 hours. Consult neurosurgery Objective Vital Signs / I&O: Vital Signs 09/15/17 10:00 09/15/17 12:00 09/15/17 12:46 Temperature 98.9 F Pulse Rate 82 94 H Respiratory Rate 29 H Blood Pressure 156/77 H Pulse Oximetry 92 L 98 09/15/17 12:47 09/15/17 14:00 09/15/17 15:55 Temperature Pulse Rate 97 H Respiratory Rate 32 H 24 Blood Pressure Pulse Oximetry 94 L 96 09/15/17 16:00 09/15/17 18:00 09/15/17 19:51 Temperature 98.9 F Pulse Rate 99 H 82 Respiratory Rate 20 20 Blood Pressure 149/75 H Pulse Oximetry 95 97 09/15/17 20:00 09/15/17 23:31 09/16/17 00:00 Temperature 98.7 F Pulse Rate 86 98 H Respiratory Rate 20 24 24 Blood Pressure 146/80 H Pulse Oximetry 98 96 09/16/17 03:32 09/16/17 04:00 09/16/17 07:26 Temperature 99.6 F Pulse Rate 102 H Respiratory Rate 23 20 23 Blood Pressure 161/87 H Pulse Oximetry 98 97 97 09/16/17 07:29 09/16/17 08:00 Temperature Pulse Rate 88 94 H Respiratory Rate 20 Blood Pressure Pulse Oximetry Intake & Output 09/15/17 09/16/17 09/16/17 18:59 06:59 18:59 Intake Total 1060 / 1060 1102 / 1102 Output Total 2024 910 / 910 Balance -965 / -965 192 / 192 Weight 71.4 kg Intake: Tube Feeding 600 / 600 612 / 612 Tube Irrigant 60 / 60 90 / 90 Water Bolus Amount 400 / 400 400 / 400 Output: Stool 25 / 25 10 / 10 Urine Amount (Catheter) 1999 900 / 900 Indwelling Urethral Catheter 1999 900 / 900 Other: Date of Last Bowel Movement 09/14/17 09/14/17 09/16/17 Result Diagrams: 09/16/17 04:10 09/16/17 04:10 Objective Remarks: GENERAL: 77-year-old male currently ventilated via trach, more awake today, but no movements of the limbs spontaneously SKIN: Warm and dry. No rash HEAD: Atraumatic. Normocephalic. EYES: Pupils equal and round about 2 mm bilaterally reactive. No scleral icterus. No injection or drainage. ENT: No nasal bleeding or discharge. Mucous membranes dry. NECK: Trachea midline. Trach site erythematous with some secretions CARDIOVASCULAR: Heart rate well controlled now. S1, S3 no S4. Without murmur. No JVD LUNGS: Coarse rhonchorous breath sounds, wheezes bilaterally improved. On PRVC/ AC GASTROINTESTINAL: Abdomen soft, non-tender, nondistended. No guarding. MUSCULOSKELETAL: Extremities without significant peripheral edema. No obvious deformities. NEUROLOGICAL: Off all sedation. Eyes spontaneously open, appears to understand verbal commands, moves his head side to side. Unable to move right upper and bilateral lower extremity. Very slight movement of left fingers, absent reflexes x4. No withdrawal of extremities 4 Assessment and Plan - Assessment and Plan Plan: A/P Assessment and Plan Neuro/Psych: Acute toxic metabolic encephalopathy Quadriplegia Severe cervical spinal cord stenosis MRI of the C-spine 09/15: Focal severe sp Moderate diffuse broad-based bulging at C3-4 with some mild increased signal in the spinal cord at this level. Moderate spinal canal stenosis at C6-C7. Consult neurosurgery Neurology Dr. Carvalho, discussed with him Per his recommendations increased Solu-Medrol to 250 mg IV every [address] 08/23: 2 questionable tiny focal hemorrhages. MRI of brain 08/26 chronic small vessel ischemic and atrophic changes CT brain 09/05 revealed bilateral maxillary sinusitis. No other acute finding EEG 09/03 revealed severe encephalopathy. No epileptiform activity Acetaminophen 650 mg by tube every 6 hours as needed fever versus. Ofirmev 1 g IV every 6 hours as needed n.p.o. Off all sedation. PT/OT CV: Uncontrolled hypertension septic shock- resolved Atherosclerotic coronary artery disease Atrial fibrillation Elevated troponin downward trend Fluid overload Currently off all vasopressors, hypertensive Continue IV Lasix 20 mg IV daily Use Cardene infusion if needed to control blood pressure Amiodarone Discontinued 09/07 secondary to bradycardia and pauses Continue metoprolol 25 mg p.o. q8h Continue to hold Digoxin. 1.6 today Dig level 09/07.- 2.1. Recheck 09/09 1.4, 0.8 09/12/17 (Home medication is NITRENDIPINE 10 mg by mouth daily) Resp: Acute hypoxic hypercapnic respiratory failure COPD with exacerbation/Emphysema Trach site infection Bilateral pleural effusion/status post chest tube right-sided transudative in nature. Chest tube removed 09/04 Multiple bilateral pulmonary masses vs infiltrate, RML mass vs consolidation Pulmonary edema Tolerating pressure support ventilation, slightly tachypneic Continue IV Solu-Medrol at increased dose as above, inhaled budesonide Albuterol/ipratropium aerosols every 4 hours with albuterol aerosols every 2 hours as needed dyspnea CT pulmonary angiogram revealed 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 Right middle lobe 2.7 x 2.2 x 7's. Spiculated. Left lingula is 3.4 x 3.20 cm. Underlying pronounced emphysematous type changes throughout lung larios. Right pleural effusion. CT thorax 09/08 revealed multiple areas of consolidation bilaterally. Prior granulomatous disease. Focal consolidation or mass in the right middle lobe that appears unchanged. Lung mass biopsied on August 28 -results - CHRONIC INFLAMMATORY AND REACTIVE FIBROBLASTIC TISSUE CONTAINING ENTRAPPED BENIGN EPITHELIUM reconsult IR 09/08 for repeat biopsy Followed by Dr. Haryd/pulmonology. Reconsulted 09/08, recommended repeat CT in 4 weeks. Hold off the IR guided biopsy time due to unstable respiratory status s/p percutaneous tracheostomy 09/08 ([place]). Start Zosyn for trach site infection Status post thoracentesis left side 09/09 with 1 L fluid removed. No evidence of infection Will need LTAC placement GI: Hypoalbuminemia Elevated total protein s/p PEG 09/11. Tolerating tube feeds with Glucerna, free water flushes today IV pantoprazole. Docusate sodium/senna 1 tablet twice daily for bowel regimen along with polyethylene glycol 17 g Twice daily and lactulose 30 cc twice daily : Urinary retention, possible urinary stricture Acute kidney injury Maintain Larson catheter. Monitor urine output, Accurate I's and O's significant difficulty due to obstruction which may be urethral stricture which prevented serial i/o. replaced Larson catheter. IV Lasix dose reduced due to worsening BUN/creatinine as above Avoid nephrotoxic drugs Endo: Diabetes mellitus Hyperglycemia History of gout Sliding scale insulin with NovoLog low regimen to maintain euglycemia Holding home medications of allopurinol 300 mg daily and colchicine 0.6 mg as needed Holding home medications of metformin 5 mg twice daily Heme: Normocytic anemia Monitor CBC daily. Follow trends Coags within normal limits ID: Severe sepsis Trach site infection Healthcare associated pneumonia Leukocytosis s/p full course abx. Restart Zosyn and vancomycin for trach site infection and worsening leukocytosis/sepsis Consult infectious diseases Status post bronchoscopy 09/03 cultures negative Blood culture from 08/20/ 08/26 no growth to date Sputum 09/05 no growth Influenza a and B 09/07 Bronchial wash negative FEN: Hypernatremia-resolved Quarter normal saline DCd Replace electrolytes as clinically indicated per ICU electrolyte protocol Monitor CMP Access Peripheral IV. Central line if indicated Prophylaxis -GI -lV pantoprazole while in p.o. DVT -SCD/heparin subcutaneous 5000 units 3 times a day. No signs of bleeding on MRI brain Patient now critically ill with worsening sepsis, trach site infection and new lead diagnosed quadrant plegia. MRI spine shows severe spinal cord stenosis, neurosurgery consulted, IV steroids increased, broad-spectrum antibiotics started. Prognosis guarded CCT 35 MIN Code Status: Full Discussed Condition With: Dr. Carvalho
[2017-09-16] MEDS ORDERED: Dextrose 50% in Water 50 ML Vial IV.PUSH PRN (09:14)
[2017-09-16] MEDS: Pantoprazole Inj 40 MG Vial IV.PUSH SCH (09:18)
[2017-09-16] MEDS: Beneprotein Powder Packet G-TUBE SCH ×3 (09:19→17:49)
[2017-09-16] MEDS: Polyethylene Glycol 3350 17 GM Packet PO SCH ×2 (09:20→21:49)
[2017-09-16] MEDS: Chlorhexidine 0.12% Oral Kit 15 ML UDC SWISH-SPIT SCH ×2 (09:20→21:01)
[2017-09-16] MEDS: Senna/Docusate Sodium 8.6/50 MG Tablet PO SCH ×2 (09:22→21:40)
[2017-09-16] MEDS: Piperacil/Tazo 4.5 GM Premix 4.5 GM/100 ML BAG IV.SIG SCH ×3 (09:44→21:50)
[2017-09-16] MEDS: MethylPREDNISolone Sod Succinate Inj 40 MG/ML Vial IV.PUSH SCH ×3 (09:46→21:48)
[2017-09-16] MEDS ORDERED: Vancomycin Inj 1,250 MG in Sodium Chlor 0.9% Inj 250 ML IV.SIG ONE (11:00)
[2017-09-16 12:55] LABS: Bilirubin,Urine Negative (Negative); Clarity,Urine Clear (Clear); Color,Urine Straw (Yellw/Straw); Glucose,Urine (UA) Negative (Negative); Hyaline Casts,Urine 6 /lpf (0-3); Leukocyte Esterase,Urine Negative (Negative); Mucus,Urine Few /lpf (Occasional); Nitrite,Urine Negative (Negative); Specific Gravity,Urine 1.011 (1.002-1.035); Squamous Epithelial Cell,Urine <1 /hpf (0-5)
[2017-09-16] MEDS ORDERED: Vancomycin Consult Pharmacy 1 EACH OTHER SCH (13:00)
--- NOTE | 2017-09-16 13:18 | P.CONID ---
History of Present Illness Service: Infectious disease Consult date: 09/16/17 Requesting Physician: Janes Mckinnon Reason for Consult: Evaluate patient with worsening sepsis, and trach site infection Primary Care Provider: UNKNOWN History of Present Illness: Patient seen and examined. Records reviewed. Patient is a 77-year-old male, initially admitted to the hospital August 21 complaining of some right upper quadrant pain and some chest pain. There is mention that he has a chronic cough. He was not short of breath, no nausea or vomiting or diarrhea, and no fever and chills. Evaluation revealed multiple pulmonary masses, COPD, and bilateral pleural effusion. He underwent thoracentesis, and fluid cytology did not show any malignancy. He underwent lung biopsy and that also did not show any definite evidence of malignancy. On August 23 he had increasing shortness of breath, and was transferred to the ICU. He ended up getting intubated. Since then patient has been on the vent, and has had failure to wean. He underwent tracheostomy on September 08, and PEG placement on September 11. Patient has had multiple cultures done. All his blood cultures are negative. He had pleural fluid on August 25 and September 09 and they were negative. Sputum culture August 26, September 05, and September 07 were all showing normal respiratory tom. Patient's WBC has been elevated to more than 20,000. Today his white count went up to 27.1. He has had liquid stool, and on August 15 stool for C. difficile came back positive. Patient has been noted to have some foul smelling reddish gauge secretions from his tracheostomy. He has not been febrile. Infectious disease consultation has been requested to assist in evaluation and treatment with worsening sepsis, and trach site infection. Review of Systems unobtainable due to mental status PMFSH - Medical History Medical History: Medical History (Last Updated 09/16/17 @ 13:06 by Kaitlin Baca MD) Diabetes Gout Hypertension Prostate CA - Tobacco History Smoking Status: Former smoker - Alcohol History How Often Do You Have a Drink Containing Alcohol: Never - Substance Use History Substance History: No History of Abuse - Travel History History of Recent Travel: Yes ([place], returned 2 months ago) Recent Travel Out of the Country Within the Last 8 Weeks: Yes Medications and Allergies Active Medications: Active Medications Acetaminophen (Tylenol Liq) 650 mg NG/OG Q6H PRN PRN Reason: FEVER Last Admin: 09/14/17 20:25 Dose: 650 mg Al Hydroxide/Mg Hydroxide (Milk Of Magnesia Liq) 30 ml PO Q12H PRN PRN Reason: MILD CONSTIPATION Albuterol (Albuterol Neb (Prn)) 2.5 mg NEB Q2HR NEB PRN PRN Reason: DYSPNEA Artificial Tears (Tears Naturale Opth Drops) 1 drop EACH EYE Q8HR [facility] Last Admin: 09/16/17 06:52 Dose: 1 drop Bisacodyl (Dulcolax Supp) 10 mg RECTAL DAILY PRN PRN Reason: SEVERE CONSTIPATION/IF NPO Budesonide (Pulmocort Respule Neb) 0.5 mg NEB Q12HR NEB [facility] Last Admin: 09/16/17 07:29 Dose: 0.5 mg Chlorhexidine Gluconate (Peridex 0.12% Oral Kit) 15 ml SWISH-SPIT BID@0800, 2000 [facility] Last Admin: 09/16/17 09:20 Dose: 15 ml Chlorhexidine Gluconate (Chlorhexidine 2% Cloth) 3 pack TOPICAL DAILY@0400 [facility] Last Admin: 09/16/17 04:07 Dose: 3 pack Chlorhexidine Gluconate (Chlorhexidine 2% Cloth) 3 pack TOPICAL UNSCH PRN; Protocol PRN Reason: HYGIENIC CARE Clonidine HCl (Catapres) 0.1 mg PO Q6H PRN PRN Reason: SBP>160, DBP>90 Last Admin: 09/16/17 09:18 Dose: 0.1 mg Dextrose (D50w Vial) 50 ml IV.PUSH UNSCH PRN PRN Reason: PER HYPOGLYCEMIA PROTOCOL Dextrose (D50w Vial) 50 ml IV.PUSH UNSCH PRN PRN Reason: PER HYPOGLYCEMIA PROTOCOL Digoxin (Lanoxin Liq) 0.125 mg PO DAILY [facility] Last Admin: 09/15/17 08:52 Dose: 0.125 mg Furosemide (Lasix Inj) 20 mg IV.PUSH DAILY [facility] Last Admin: 09/16/17 09:19 Dose: 20 mg Glucagon (Glucagon Inj) 1 mg OTHER PRN PRN PRN Reason: for Hypoglycemia Protocol Heparin Sodium (Porcine) (Heparin Inj) 5,000 units SQ Q8HR [facility] Last Admin: 09/16/17 06:52 Dose: 5,000 units Hyoscyamine (Levsin Inj) 0.25 mg IV.PUSH Q6H PRN PRN Reason: INCREASED SECRETIONS Sodium Phosphate 30 mmol/ (Sodium Chloride) 260 mls @ 42 mls/hr IV.SIG UNSCH PRN PRN Reason: For Phosphorus < 2.5 mg/dL Potassium Chloride (Kcl 20 Meq Premix Inj) 20 meq in 100 mls @ 50 mls/hr IV.SIG Q2H PRN PRN Reason: For Potassium 3.3 - 3.5 mEq/L Potassium Chloride (Kcl 40 Meq Premix Inj) 40 meq in 100 mls @ 25 mls/hr IV.SIG Q2H PRN PRN Reason: For Potassium 2.8 - 3.2 mEq/L Magnesium Sulfate Inj 4 gm/ (Sodium Chloride) 100 mls @ 50 mls/hr IV.SIG UNSCH PRN PRN Reason: For Magnesium 0.9 - 1.1 mg/dL Magnesium Sulfate Inj 2 gm/ (Sodium Chloride) 100 mls @ 50 mls/hr IV.SIG UNSCH PRN PRN Reason: For Magnesium 1.2 - 1.6 mg/dL Potassium Phosphate 30 mmol/ (Sodium Chloride) 260 mls @ 42 mls/hr IV.SIG UNSCH PRN PRN Reason: SEE LABEL COMMENTS Piperacillin/Tazobactam/Dextrose (Zosyn 4.5 Gm Premix) 4.5 gm in 100 mls @ 200 mls/hr IV.SIG Q6H [facility] Last Admin: 09/16/17 09:44 Dose: 200 mls/hr Nicardipine HCl 25 mg/ Sodium (Chloride) 260 mls @ 52 mls/hr IV.SIG TITRATE PRN PRN Reason: BLOOD PRESSURE MANAGEMENT Potassium Chloride (Kcl 40 Meq Premix Inj) 40 meq in 100 mls @ 25 mls/hr IV.SIG UNSCH PRN PRN Reason: POTASSIUM 3 TO 3.5 Acetaminophen (Ofirmev Inj) 1,000 mg in 100 mls @ 400 mls/hr IV.SIG Q6H PRN PRN Reason: FEVER Insulin Aspart (Novolog Insulin Suppl Scale Inj) 0 unit SQ Q4HR [facility]; Protocol Insulin Detemir (Levemir Inj) 12 unit SQ Q12HR [facility] Labetalol HCl (Trandate Inj) 10 mg IV.PUSH Q1H PRN PRN Reason: SBP>160, DBP>90, HR>65 Labetalol HCl (Trandate Inj) 10 mg IV.PUSH Q6H PRN PRN Reason: TACHYCARDIA >100 BPM Lactulose (Lactulose Liq) 30 ml PO BID [facility] Last Admin: 09/16/17 09:18 Dose: 30 ml Lansoprazole (Prevacid Solutab) 30 mg NG/OG DAILY [facility] Last Admin: 09/16/17 09:18 Dose: 30 mg Magnesium Oxide (Mag-Ox) 800 mg PO UNSCH PRN PRN Reason: For Magnesium 1.2 - 1.6 mg/dL Methylprednisolone Sodium Succinate (Solumedrol Inj) 250 mg IV.PUSH Q6H [facility] Last Admin: 09/16/17 09:46 Dose: 250 mg Metoclopramide HCl (Reglan Inj) 5 mg IV.PUSH Q8HR [facility] Last Admin: 09/16/17 06:52 Dose: 5 mg Metoprolol Tartrate (Lopressor) 25 mg PO Q8H [facility] Last Admin: 09/16/17 09:20 Dose: 25 mg Miscellaneous Information (Misc Nursing Information) 1 each OTHER Q361D [facility] Last Admin: 09/15/17 22:14 Dose: Not Given Miscellaneous Information (Mis Nursing Information) 1 each OTHER Q361D [facility] Last Admin: 09/15/17 22:14 Dose: Not Given Naloxone HCl (Narcan Inj) 0.4 mg IV.PUSH UNSCH PRN PRN Reason: SEE LABEL COMMENTS Ondansetron HCl (Zofran Odt) 4 mg PO Q6H [facility] Last Admin: 09/16/17 09:19 Dose: 4 mg Pantoprazole Sodium (Protonix Inj) 40 mg IV.PUSH Q24H [facility] Last Admin: 09/16/17 09:18 Dose: 40 mg Polyethylene Glycol (Miralax) 17 gm PO BID [facility] Last Admin: 09/16/17 09:20 Dose: 17 gm Potassium Bicarb/Potassium Chloride (K-Lyte) 50 meq PO UNSCH PRN PRN Reason: For Potassium 3.3 - 3.5 mEq/L Potassium Phosphate (K-Phos Original) 2,000 mg PO Q4H PRN PRN Reason: Phosphorus Less Than 2.5 mg/dL Potassium Phosphate (K-Phos Original) 2,000 mg PO PRN PRN PRN Reason: SEE LABEL COMMENTS Senna/Docusate Sodium (Bhumi-Colace) 1 tab PO BID [facility] Last Admin: 09/16/17 09:22 Dose: Not Given Sennosides (Senokot) 17.2 mg PO Q12H PRN PRN Reason: MODERATE CONSTIPATION Sodium Chloride (Ns Flush) 0 ml IV.FLUSH DAILY [facility]; Protocol Last Admin: 09/16/17 09:22 Dose: Not Given Sterile Water (Free Water) 0 ml NG/OG Q6H [facility] Last Admin: 09/16/17 06:51 Dose: 200 ml Whey (Beneprotein Powder) 1 packet G-TUBE TID [facility] Last Admin: 09/16/17 09:19 Dose: 1 packet Allergies Allergy/AdvReac Type Severity Reaction Status Date / Time No Known Allergies Allergy Unknown Uncoded 08/20/17 17:57 Home Medications Medication Instructions Recorded Confirmed Type allopurinol 100 mg PO DAILY 09/13/17 09/13/17 History cefaclor 500 mg PO Q12H 09/13/17 09/13/17 History colchicine 0.6 mg PO BID 09/13/17 09/13/17 History metformin 500 mg PO DAILY 09/13/17 09/13/17 History Exam Vital signs: Vital Signs 09/15/17 14:00 09/15/17 15:55 09/15/17 16:00 Temperature 98.9 F Pulse Rate 97 H 99 H Respiratory Rate 24 20 Blood Pressure 149/75 H Pulse Oximetry 96 95 09/15/17 18:00 09/15/17 19:51 09/15/17 20:00 Temperature Pulse Rate 82 86 Respiratory Rate 20 20 Blood Pressure Pulse Oximetry 97 09/15/17 23:31 09/16/17 00:00 09/16/17 03:32 Temperature 98.7 F Pulse Rate 98 H Respiratory Rate 24 24 23 Blood Pressure 146/80 H Pulse Oximetry 98 96 98 09/16/17 04:00 09/16/17 07:26 09/16/17 07:29 Temperature 99.6 F Pulse Rate 102 H 88 Respiratory Rate 20 23 20 Blood Pressure 161/87 H Pulse Oximetry 97 97 09/16/17 08:00 09/16/17 11:09 Temperature Pulse Rate 94 H Respiratory Rate 28 H Blood Pressure Pulse Oximetry 98 Intake & Output 09/15/17 09/16/17 09/16/17 18:59 06:59 18:59 Intake Total 1060 / 1060 1102 / 1102 Output Total 2024 910 / 910 Balance -965 / -965 192 / 192 Weight 71.4 kg Intake: Tube Feeding 600 / 600 612 / 612 Tube Irrigant 60 / 60 90 / 90 Water Bolus Amount 400 / 400 400 / 400 Output: Stool 25 / 25 10 / 10 Urine Amount (Catheter) 1999 900 / 900 Indwelling Urethral Catheter 1999 900 / 900 Other: Date of Last Bowel Movement 09/14/17 09/14/17 09/16/17 Narrative: Physical Examination GENERAL: Patient is a well-nourished, well-developed male, sedated on the vent, on CPAP, not in respiratory distress. SKIN: Warm and dry. No generalized rash, no ecchymoses and no evidence of embolic lesions. HEAD: Atraumatic. Normocephalic. No temporal wasting, or tenderness. EYES: [place]ubieber conjunctiva. No petechia or hemorrhage. Pupils equal, round and reactive to light. Extraocular movements full and intact. No scleral icterus. No injection or drainage. EARS, NOSE AND THROAT: Nose without bleeding or purulent nasal discharge. Dry oral mucosa. NECK: Tracheostomy site with mild erythema, has copious foul smelling discharge on the left side with reddish beige secretions. Supple CARDIOVASCULAR: Regular rate and rhythm. No murmurs, rubs or gallops heard RESPIRATORY: Coarse breath sounds equal bilaterally. No rales, wheezing or rhonchi ABDOMEN: Soft, non-tender, nondistended. Bowel sounds present and normoactive. No guarding. No rebound. No organomegaly. PEG site ok. EXTREMITIES: No clubbing, cyanosis. Has some nai pitting pedal edema. Well perfused and warm. NEUROLOGICAL: Sedated. PSYCHIATRIC: Unable to assess. LINE: No evidence of infection : Larson in place, urine looks clear Results - Labs CBC & Chem 7: 09/16/17 04:10 09/16/17 04:10 Labs: Laboratory Results - last 24 hr 09/14/17 09/15/17 09/16/17 22:35 17:15 04:10 WBC RBC Hgb Hct MCV MCH MCHC RDW Plt Count MPV Sodium 141 Potassium 5.2 H Chloride 101 Carbon Dioxide 32.3 H Anion Gap 8 BUN 59 H Creatinine 0.90 Estimated GFR 81 L POC Glucose 304 H Random Glucose 266 H Calcium 8.6 Total Bilirubin 0.6 AST 25 ALT 39 Alkaline Phosphatase 137 H Total Protein 7.3 Albumin 1.8 L Stl C.difficile Tox PCR Positive H St C. diff Tox Epid 027 Negative Digoxin 1.6 09/16/17 04:10 WBC 27.1 H RBC 3.69 L Hgb 10.8 L Hct 33.1 L MCV 89.9 MCH 29.2 MCHC 32.5 RDW 14.8 Plt Count 373 MPV 8.1 Sodium Potassium Chloride Carbon Dioxide Anion Gap BUN Creatinine Estimated GFR POC Glucose Random Glucose Calcium Total Bilirubin AST ALT Alkaline Phosphatase Total Protein Albumin Stl C.difficile Tox PCR St C. diff Tox Epid 027 Digoxin - Imaging Impressions Chest X-Ray 09/16/17 06:00 CONCLUSION: Increasing partially consolidated infiltrates left midlung. Cervical Spine MRI September 15, 2017 CONCLUSION: 1. There appears to be focal severe spinal canal stenosis at C4-5. There is increased signal within the body of the spinal cord at this level most likely representing some myelomalacia. 2. Moderate diffuse broad-based bulging at C3-4 with some mild increased signal in the spinal cord at this level. 3. Moderate spinal canal stenosis at C6-C7 4. Bilateral facet arthritis at multiple levels. 5. Extensive primary degenerative changes with disc degeneration and disc space narrowing throughout the entire cervical spine. Assessment and Plan - Plan IMPRESSION Sepsis, worsening - has worsening leukocytosis - ?HCAP - trach site infection - C diff colitis Trach site infection, proceduredone 09/08 C diff colitis Respiratory failure RECOMMENDATION Follow C/S Continue IV Vanco Continue Zosyn Add Diflucan Add po Vanco for C diff Send sputum G/S C/S Will adjust Abx once C/S finalized Consider CT neck if not better Weaning per CCM Follow CBC Monitor progress I will follow along with you Thank you for this consultation D/W RN
--- NOTE | 2017-09-16 19:18 | P.CONNS ---
History of Present Illness Service: Neurosurgery Consult date: 09/16/17 Requesting Physician: Janes Mckinnon Reason for Consult: Quadriplegia Primary Care Provider: UNKNOWN History of Present Illness: 77-year-old male admitted on August 21, 2017 with initial complaint of chest pain and right upper quadrant abdominal pain. His initial evaluation revealed multiple pulmonary lesions with pleural effusion. However cytology from thoracentesis and lung biopsy were negative for malignancy. He initially required a tracheostomy placement. He has been on ventilatory support, with sedation recently weaned over the past few days. There was noted within the past day or 2 that he has not been moving his extremities, and an MRI of the cervical spine was subsequently obtained on 09/15/2017. This has revealed severe cervical stenosis with significant abnormal signal intensity within the cord. Review of his records indicates the patient to be moving all extremities during the first week or so of his hospitalization, although it is difficult to determine the grade of his motor function, with the patient very ill and apparently generally weak upon his initial presentation. Physical therapy notes reviewed, however therapy has not been able to consistently work with the patient due to his pulmonary problems and subsequent intubation and sedation. Review of Systems Unable to obtain review of systems directly from the patient due to intubation, altered mental status. I spoke with his son on the telephone, with history of the patient being relatively active prior to his recent illness and hospitalization. [facility] - History History Provided By: Medical Record - Medical History Medical History: Medical History (Last Updated 09/16/17 @ 13:06 by Kaitlin Baca MD) Diabetes Gout Hypertension Prostate CA - Tobacco History Smoking Status: Former smoker - Alcohol History How Often Do You Have a Drink Containing Alcohol: Never - Substance Use History Substance History: No History of Abuse - Travel History History of Recent Travel: Yes ([place], returned 2 months ago) Recent Travel Out of the Country Within the Last 8 Weeks: Yes Medications and Allergies Active Medications: Active Medications Acetaminophen (Tylenol Liq) 650 mg NG/OG Q6H PRN PRN Reason: FEVER Last Admin: 09/14/17 20:25 Dose: 650 mg Al Hydroxide/Mg Hydroxide (Milk Of Magnesia Liq) 30 ml PO Q12H PRN PRN Reason: MILD CONSTIPATION Albuterol (Albuterol Neb (Prn)) 2.5 mg NEB Q2HR NEB PRN PRN Reason: DYSPNEA Artificial Tears (Tears Naturale Opth Drops) 1 drop EACH EYE Q8HR [facility] Last Admin: 09/16/17 14:13 Dose: 1 drop Bisacodyl (Dulcolax Supp) 10 mg RECTAL DAILY PRN PRN Reason: SEVERE CONSTIPATION/IF NPO Budesonide (Pulmocort Respule Neb) 0.5 mg NEB Q12HR NEB [facility] Last Admin: 09/16/17 07:29 Dose: 0.5 mg Chlorhexidine Gluconate (Peridex 0.12% Oral Kit) 15 ml SWISH-SPIT BID@0800, 2000 [facility] Last Admin: 09/16/17 09:20 Dose: 15 ml Chlorhexidine Gluconate (Chlorhexidine 2% Cloth) 3 pack TOPICAL DAILY@0400 [facility] Last Admin: 09/16/17 04:07 Dose: 3 pack Chlorhexidine Gluconate (Chlorhexidine 2% Cloth) 3 pack TOPICAL UNSCH PRN; Protocol PRN Reason: HYGIENIC CARE Clonidine HCl (Catapres) 0.1 mg PO Q6H PRN PRN Reason: SBP>160, DBP>90 Last Admin: 09/16/17 09:18 Dose: 0.1 mg Dextrose (D50w Vial) 50 ml IV.PUSH UNSCH PRN PRN Reason: PER HYPOGLYCEMIA PROTOCOL Dextrose (D50w Vial) 50 ml IV.PUSH UNSCH PRN PRN Reason: PER HYPOGLYCEMIA PROTOCOL Digoxin (Lanoxin Liq) 0.125 mg PO DAILY [facility] Last Admin: 09/15/17 08:52 Dose: 0.125 mg Fluconazole (Diflucan) 200 mg PO DAILY [facility] Last Admin: 09/16/17 14:30 Dose: 200 mg Furosemide (Lasix Inj) 20 mg IV.PUSH DAILY [facility] Last Admin: 09/16/17 09:19 Dose: 20 mg Glucagon (Glucagon Inj) 1 mg OTHER PRN PRN PRN Reason: for Hypoglycemia Protocol Heparin Sodium (Porcine) (Heparin Inj) 5,000 units SQ Q8HR [facility] Last Admin: 09/16/17 14:12 Dose: 5,000 units Hyoscyamine (Levsin Inj) 0.25 mg IV.PUSH Q6H PRN PRN Reason: INCREASED SECRETIONS Sodium Phosphate 30 mmol/ (Sodium Chloride) 260 mls @ 42 mls/hr IV.SIG UNSCH PRN PRN Reason: For Phosphorus < 2.5 mg/dL Potassium Chloride (Kcl 20 Meq Premix Inj) 20 meq in 100 mls @ 50 mls/hr IV.SIG Q2H PRN PRN Reason: For Potassium 3.3 - 3.5 mEq/L Potassium Chloride (Kcl 40 Meq Premix Inj) 40 meq in 100 mls @ 25 mls/hr IV.SIG Q2H PRN PRN Reason: For Potassium 2.8 - 3.2 mEq/L Magnesium Sulfate Inj 4 gm/ (Sodium Chloride) 100 mls @ 50 mls/hr IV.SIG UNSCH PRN PRN Reason: For Magnesium 0.9 - 1.1 mg/dL Magnesium Sulfate Inj 2 gm/ (Sodium Chloride) 100 mls @ 50 mls/hr IV.SIG UNSCH PRN PRN Reason: For Magnesium 1.2 - 1.6 mg/dL Potassium Phosphate 30 mmol/ (Sodium Chloride) 260 mls @ 42 mls/hr IV.SIG UNSCH PRN PRN Reason: SEE LABEL COMMENTS Piperacillin/Tazobactam/Dextrose (Zosyn 4.5 Gm Premix) 4.5 gm in 100 mls @ 200 mls/hr IV.SIG Q6H [facility] Last Admin: 09/16/17 16:00 Dose: 200 mls/hr Nicardipine HCl 25 mg/ Sodium (Chloride) 260 mls @ 52 mls/hr IV.SIG TITRATE PRN PRN Reason: BLOOD PRESSURE MANAGEMENT Pharmacy Profile Note (Vancomycin Consult Pharmacy) 0 mls @ 0 mls/hr OTHER UNSCH [facility] Vancomycin HCl 1,000 mg/ (Sodium Chloride) 250 mls @ 250 mls/hr IV.SIG Q24H [facility] Potassium Chloride (Kcl 40 Meq Premix Inj) 40 meq in 100 mls @ 25 mls/hr IV.SIG UNSCH PRN PRN Reason: POTASSIUM 3 TO 3.5 Acetaminophen (Ofirmev Inj) 1,000 mg in 100 mls @ 400 mls/hr IV.SIG Q6H PRN PRN Reason: FEVER Insulin Aspart (Novolog Insulin Suppl Scale Inj) 0 unit SQ Q4HR [facility]; Protocol Last Admin: 09/16/17 17:47 Dose: 15 unit Insulin Detemir (Levemir Inj) 12 unit SQ Q12HR [facility] Labetalol HCl (Trandate Inj) 10 mg IV.PUSH Q1H PRN PRN Reason: SBP>160, DBP>90, HR>65 Labetalol HCl (Trandate Inj) 10 mg IV.PUSH Q6H PRN PRN Reason: TACHYCARDIA >100 BPM Lactulose (Lactulose Liq) 30 ml PO BID [facility] Last Admin: 09/16/17 09:18 Dose: 30 ml Lansoprazole (Prevacid Solutab) 30 mg NG/OG DAILY [facility] Last Admin: 09/16/17 09:18 Dose: 30 mg Magnesium Oxide (Mag-Ox) 800 mg PO UNSCH PRN PRN Reason: For Magnesium 1.2 - 1.6 mg/dL Methylprednisolone Sodium Succinate (Solumedrol Inj) 250 mg IV.PUSH Q6H [facility] Last Admin: 09/16/17 16:00 Dose: 250 mg Metoclopramide HCl (Reglan Inj) 5 mg IV.PUSH Q8HR [facility] Last Admin: 09/16/17 14:12 Dose: 5 mg Metoprolol Tartrate (Lopressor) 25 mg PO Q8H [facility] Last Admin: 09/16/17 17:49 Dose: 25 mg Miscellaneous Information ([facility]) 1 each OTHER Q361D [facility] Last Admin: 09/15/17 22:14 Dose: Not Given Miscellaneous Information ([facility] 1 each OTHER Q361D [facility] Last Admin: 09/15/17 22:14 Dose: Not Given Miscellaneous Information ([facility] Ordered Lab Info) 0 each OTHER ONCE ONE Stop: 09/19/17 10:46 Naloxone HCl (Narcan Inj) 0.4 mg IV.PUSH UNSCH PRN PRN Reason: SEE LABEL COMMENTS Ondansetron HCl (Zofran Odt) 4 mg PO Q6H [facility] Last Admin: 09/16/17 14:13 Dose: 4 mg Pantoprazole Sodium (Protonix Inj) 40 mg IV.PUSH Q24H [facility] Last Admin: 09/16/17 09:18 Dose: 40 mg Polyethylene Glycol (Miralax) 17 gm PO BID [facility] Last Admin: 09/16/17 09:20 Dose: 17 gm Potassium Bicarb/Potassium Chloride (K-Lyte) 50 meq PO UNSCH PRN PRN Reason: For Potassium 3.3 - 3.5 mEq/L Potassium Phosphate (K-Phos Original) 2,000 mg PO Q4H PRN PRN Reason: Phosphorus Less Than 2.5 mg/dL Potassium Phosphate (K-Phos Original) 2,000 mg PO PRN PRN PRN Reason: SEE LABEL COMMENTS Senna/Docusate Sodium (Bhumi-Colace) 1 tab PO BID [facility] Last Admin: 09/16/17 09:22 Dose: Not Given Sennosides (Senokot) 17.2 mg PO Q12H PRN PRN Reason: MODERATE CONSTIPATION Sodium Chloride (Ns Flush) 0 ml IV.FLUSH DAILY [facility]; Protocol Last Admin: 09/16/17 09:22 Dose: Not Given Sterile Water (Free Water) 0 ml NG/OG Q6H [facility] Last Admin: 09/16/17 17:49 Dose: 200 ml Vancomycin HCl (Vancomycin Po) 250 mg PO QID [facility] Last Admin: 09/16/17 17:49 Dose: 250 mg Whey (Beneprotein Powder) 1 packet G-TUBE TID [facility] Last Admin: 09/16/17 17:49 Dose: 1 packet Allergies Allergy/AdvReac Type Severity Reaction Status Date / Time No Known Allergies Allergy Unknown Uncoded 08/20/17 17:57 Home Medications Medication Instructions Recorded Confirmed Type allopurinol 100 mg PO DAILY 09/13/17 09/13/17 History cefaclor 500 mg PO Q12H 09/13/17 09/13/17 History colchicine 0.6 mg PO BID 09/13/17 09/13/17 History metformin 500 mg PO DAILY 09/13/17 09/13/17 History Exam Vital signs: Vital Signs 09/15/17 19:51 09/15/17 20:00 09/15/17 23:31 Temperature Pulse Rate 86 Respiratory Rate 20 20 24 Blood Pressure Pulse Oximetry 97 98 09/16/17 00:00 09/16/17 03:32 09/16/17 04:00 Temperature 98.7 F 99.6 F Pulse Rate 98 H 102 H Respiratory Rate 24 23 20 Blood Pressure 146/80 H 161/87 H Pulse Oximetry 96 98 97 09/16/17 07:26 09/16/17 07:29 09/16/17 08:00 Temperature 99.3 F Pulse Rate 88 94 H Respiratory Rate 23 20 27 H Blood Pressure 156/79 H Pulse Oximetry 97 96 09/16/17 11:09 09/16/17 12:00 09/16/17 15:58 Temperature 99.1 F Pulse Rate 78 Respiratory Rate 28 H 27 H 26 H Blood Pressure 136/65 Pulse Oximetry 98 97 94 L 09/16/17 16:00 Temperature 99.2 F Pulse Rate 82 Respiratory Rate 28 H Blood Pressure 138/68 Pulse Oximetry Intake & Output 09/15/17 09/16/17 09/16/17 18:59 06:59 18:59 Intake Total 1060 / 1060 1102 / 1102 1380.5 / 1380.5 Output Total 2024 / 2024 910 / 910 3250 / 3250 Balance -965 / -965 192 / 192 -1869.5 / -1869.5 Weight 71.4 kg Intake: IV 362.5 / 362.5 Zosyn 4.5 GM Premix 4.5 gm In 100 / 100 100 ml @ 200 mls/hr IV.SIG Q6H [facility] Rx#:[id number] Vancomycin Inj 1,250 MG In NS 262.5 / 262.5 Inj 250 ML @ 250 mls/hr IV.SIG ONCE ONE Rx#:[id number] Tube Feeding 600 / 600 612 / 612 558 / 558 Tube Irrigant 60 / 60 90 / 90 60 / 60 Water Bolus Amount 400 / 400 400 / 400 400 / 400 Output: Urine 1450 / 1450 Stool 25 / 25 10 / 10 100 / 100 Urine Amount (Catheter) 1999 900 / 900 1700 / 1700 Indwelling Urethral Catheter 1999 900 / 900 1700 / 1700 Other: Date of Last Bowel Movement 09/14/17 09/14/17 09/16/17 Narrative: The patient is intubated with tracheostomy in place. Respirations are clear. Remains on ventilatory support. Heart rate is regular Abdomen soft No significant skin lesion or rash He is a somewhat thin elderly gentleman, somewhat poor overall muscle mass. He is awake. He seems to focus slightly to the left in response to his speaking with him. He will mildly turn his head to the right with slight conjugate right gaze and response to voice. He is not definitely following commands. Pupils are midrange mildly reactive. Mild corneal and oculocephalic responses Mild facial grimacing to deep pain all extremities. Sensation otherwise difficult to accurately assess in the upper and lower extremities . Motor function is absent spontaneous to command and to deep pain in all extremities. Hollis's response absent bilaterally No ankle clonus Plantar responses are absent No spasm in the upper or lower extremities. His extremities are all flaccid with basically absent muscle tone. Results - Laboratory Findings CBC and BMP: 09/16/17 04:10 09/16/17 04:10 Abnormal lab findings: Abnormal Labs 08/20/17 08/20/17 08/20/17 18:03 18:03 19:10 WBC 16.3 H RBC Hgb Hct MCHC Plt Count Neut % (Auto) 84.3 H Lymph % (Auto) 7.9 L Neut # (Auto) 13.7 H Lymph # (Auto) Iron # (Auto) 1.1 H Neutrophils % (Manual) Band Neutrophils % Lymphocytes % Monocytes % Neutrophils # (Manual) Metamyelocytes Myelocytes Nucleated RBCs Platelet Estimate Plt Morphology Comment Basophilic Stippling Stomatocytes APTT Fibrinogen HCO3 Base Excess O2 Saturation ABG pH ABG pCO2 ABG pO2 Hemoglobin Sodium Potassium Chloride Carbon Dioxide BUN Creatinine Estimated GFR 82 L POC Glucose Random Glucose 249 H Hemoglobin A1c Lactic Acid Calcium Phosphorus Magnesium Total Bilirubin AST 10 L ALT Alkaline Phosphatase Ammonia Troponin I Total Protein 8.3 H Albumin 2.9 L Triglycerides HDL Cholesterol Angiotensin Convert Enz Urine Turbidity HAZY H Urine Glucose (UA) 300 H Urine Mucus FEW H Pleural WBC Pleural RBC Lavage Tot WBC Count Stl C.difficile Tox PCR Digoxin 08/20/17 08/21/17 08/21/17 20:45 04:24 04:24 WBC 22.0 H RBC Hgb Hct MCHC Plt Count Neut % (Auto) 92.1 H Lymph % (Auto) 3.7 L Neut # (Auto) 20.2 H Lymph # (Auto) 0.8 L Iron # (Auto) Neutrophils % (Manual) Band Neutrophils % Lymphocytes % Monocytes % Neutrophils # (Manual) Metamyelocytes Myelocytes Nucleated RBCs Platelet Estimate Plt Morphology Comment Basophilic Stippling Stomatocytes APTT Fibrinogen HCO3 Base Excess O2 Saturation ABG pH ABG pCO2 ABG pO2 Hemoglobin Sodium Potassium Chloride Carbon Dioxide BUN Creatinine Estimated GFR 82 L POC Glucose Random Glucose 177 H Hemoglobin A1c Lactic Acid 2.1 H Calcium Phosphorus Magnesium Total Bilirubin AST ALT Alkaline Phosphatase Ammonia Troponin I Total Protein Albumin Triglycerides HDL Cholesterol Angiotensin Convert Enz Urine Turbidity Urine Glucose (UA) Urine Mucus Pleural WBC Pleural RBC Lavage Tot WBC Count Stl C.difficile Tox PCR Digoxin 08/21/17 08/21/17 08/21/17 18:15 20:31 20:31 WBC 26.9 H RBC Hgb Hct MCHC Plt Count Neut % (Auto) 92.6 H Lymph % (Auto) 3.3 L Neut # (Auto) 24.9 H Lymph # (Auto) 0.9 L Iron # (Auto) 1.0 H Neutrophils % (Manual) Band Neutrophils % Lymphocytes % Monocytes % Neutrophils # (Manual) Metamyelocytes Myelocytes Nucleated RBCs Platelet Estimate Plt Morphology Comment Basophilic Stippling Stomatocytes APTT Fibrinogen HCO3 28 H Base Excess 3.0 H O2 Saturation 85 L* ABG pH 7.34 L ABG pCO2 54 H* ABG pO2 58 L* Hemoglobin 16.1 H Sodium Potassium Chloride Carbon Dioxide BUN 24 H Creatinine Estimated GFR 62 L POC Glucose Random Glucose 170 H Hemoglobin A1c Lactic Acid Calcium Phosphorus Magnesium Total Bilirubin AST ALT Alkaline Phosphatase Ammonia Troponin I Total Protein Albumin Triglycerides HDL Cholesterol Angiotensin Convert Enz Urine Turbidity Urine Glucose (UA) Urine Mucus Pleural WBC Pleural RBC Lavage Tot WBC Count Stl C.difficile Tox PCR Digoxin 08/22/17 08/22/17 08/23/17 06:19 06:19 02:36 WBC 31.4 H RBC Hgb Hct MCHC Plt Count Neut % (Auto) 93.4 H Lymph % (Auto) 2.1 L Neut # (Auto) 29.3 H Lymph # (Auto) 0.7 L Iron # (Auto) 1.3 H Neutrophils % (Manual) 81 H Band Neutrophils % 13 H Lymphocytes % 2 L Monocytes % Neutrophils # (Manual) 29.5 H Metamyelocytes Myelocytes Nucleated RBCs Platelet Estimate Plt Morphology Comment Basophilic Stippling Stomatocytes APTT Fibrinogen HCO3 Base Excess O2 Saturation ABG pH ABG pCO2 ABG pO2 Hemoglobin Sodium Potassium Chloride Carbon Dioxide BUN 26 H 28 H Creatinine Estimated GFR 57 L 61 L POC Glucose Random Glucose 194 H 162 H Hemoglobin A1c Lactic Acid Calcium Phosphorus Magnesium Total Bilirubin AST 11 L ALT Alkaline Phosphatase Ammonia Troponin I Total Protein Albumin 1.9 L Triglycerides HDL Cholesterol Angiotensin Convert Enz Urine Turbidity Urine Glucose (UA) Urine Mucus Pleural WBC Pleural RBC Lavage Tot WBC Count Stl C.difficile Tox PCR Digoxin 08/23/17 08/23/17 08/23/17 02:36 02:36 09:30 WBC 28.5 H RBC Hgb Hct MCHC Plt Count Neut % (Auto) 91.9 H Lymph % (Auto) 2.7 L Neut # (Auto) 26.2 H Lymph # (Auto) 0.8 L Iron # (Auto) 1.4 H Neutrophils % (Manual) Band Neutrophils % Lymphocytes % Monocytes % Neutrophils # (Manual) Metamyelocytes Myelocytes Nucleated RBCs Platelet Estimate Plt Morphology Comment Basophilic Stippling Stomatocytes APTT 33.2 H Fibrinogen HCO3 31 H Base Excess 5.3 H O2 Saturation ABG pH 7.32 L ABG pCO2 62 H* ABG pO2 Hemoglobin Sodium Potassium Chloride Carbon Dioxide BUN Creatinine Estimated GFR POC Glucose Random Glucose Hemoglobin A1c Lactic Acid Calcium Phosphorus Magnesium Total Bilirubin AST ALT Alkaline Phosphatase Ammonia Troponin I Total Protein Albumin Triglycerides HDL Cholesterol Angiotensin Convert Enz Urine Turbidity Urine Glucose (UA) Urine Mucus Pleural WBC Pleural RBC Lavage Tot WBC Count Stl C.difficile Tox PCR Digoxin 08/23/17 08/23/17 08/23/17 18:58 18:58 20:08 WBC RBC Hgb Hct MCHC Plt Count Neut % (Auto) Lymph % (Auto) Neut # (Auto) Lymph # (Auto) Iron # (Auto) Neutrophils % (Manual) Band Neutrophils % Lymphocytes % Monocytes % Neutrophils # (Manual) Metamyelocytes Myelocytes Nucleated RBCs Platelet Estimate Plt Morphology Comment Basophilic Stippling Stomatocytes APTT Fibrinogen HCO3 30 H Base Excess 4.1 H O2 Saturation ABG pH 7.31 L ABG pCO2 61 H* ABG pO2 167 H Hemoglobin Sodium Potassium Chloride Carbon Dioxide BUN Creatinine Estimated GFR POC Glucose Random Glucose Hemoglobin A1c Lactic Acid Calcium Phosphorus Magnesium Total Bilirubin AST ALT Alkaline Phosphatase Ammonia Troponin I 0.92 H* Total Protein Albumin Triglycerides HDL Cholesterol Angiotensin Convert Enz 6 L Urine Turbidity Urine Glucose (UA) Urine Mucus Pleural WBC Pleural RBC Lavage Tot WBC Count Stl C.difficile Tox PCR Digoxin 08/24/17 08/24/17 08/24/17 03:45 04:00 04:00 WBC 21.3 H RBC 3.96 L Hgb 11.5 L Hct 35.1 L MCHC Plt Count Neut % (Auto) 92.4 H Lymph % (Auto) 3.4 L Neut # (Auto) 19.7 H Lymph # (Auto) 0.7 L Iron # (Auto) Neutrophils % (Manual) Band Neutrophils % Lymphocytes % Monocytes % Neutrophils # (Manual) Metamyelocytes Myelocytes Nucleated RBCs Platelet Estimate Plt Morphology Comment Basophilic Stippling Stomatocytes APTT 30.3 H Fibrinogen GREATER THAN 860 H HCO3 Base Excess O2 Saturation ABG pH ABG pCO2 ABG pO2 Hemoglobin Sodium Potassium Chloride Carbon Dioxide BUN 39 H D Creatinine Estimated GFR 79 L POC Glucose Random Glucose 163 H Hemoglobin A1c Lactic Acid Calcium Phosphorus 2.3 L Magnesium Total Bilirubin AST 13 L ALT Alkaline Phosphatase Ammonia Troponin I 0.81 H* D Total Protein 6.3 L D Albumin 1.6 L Triglycerides 173 H HDL Cholesterol 16.3 L Angiotensin Convert Enz Urine Turbidity Urine Glucose (UA) Urine Mucus Pleural WBC Pleural RBC Lavage Tot WBC Count Stl C.difficile Tox PCR Digoxin 08/24/17 08/25/17 08/25/17 04:15 05:15 05:15 WBC RBC 3.65 L Hgb 10.7 L Hct 32.0 L MCHC Plt Count Neut % (Auto) 84.0 H Lymph % (Auto) 8.7 L Neut # (Auto) 7.9 H Lymph # (Auto) 0.8 L Iron # (Auto) Neutrophils % (Manual) Band Neutrophils % Lymphocytes % Monocytes % Neutrophils # (Manual) Metamyelocytes Myelocytes Nucleated RBCs Platelet Estimate Plt Morphology Comment Basophilic Stippling Stomatocytes APTT Fibrinogen HCO3 Base Excess O2 Saturation ABG pH ABG pCO2 ABG pO2 Hemoglobin Sodium 147 H Potassium Chloride 109 H Carbon Dioxide BUN 35 H Creatinine Estimated GFR POC Glucose Random Glucose 120 H Hemoglobin A1c Lactic Acid Calcium Phosphorus Magnesium Total Bilirubin AST ALT Alkaline Phosphatase Ammonia LESS THAN 10 L Troponin I Total Protein Albumin Triglycerides HDL Cholesterol Angiotensin Convert Enz Urine Turbidity Urine Glucose (UA) Urine Mucus Pleural WBC Pleural RBC Lavage Tot WBC Count Stl C.difficile Tox PCR Digoxin 08/25/17 08/26/17 08/26/17 13:36 06:00 06:00 WBC RBC 3.74 L Hgb 10.8 L Hct 32.9 L MCHC Plt Count Neut % (Auto) 84.1 H Lymph % (Auto) 8.4 L Neut # (Auto) Lymph # (Auto) 0.8 L Iron # (Auto) Neutrophils % (Manual) Band Neutrophils % Lymphocytes % Monocytes % Neutrophils # (Manual) Metamyelocytes Myelocytes Nucleated RBCs Platelet Estimate Plt Morphology Comment Basophilic Stippling Stomatocytes APTT Fibrinogen HCO3 Base Excess O2 Saturation ABG pH ABG pCO2 ABG pO2 Hemoglobin Sodium 146 H Potassium Chloride 110 H Carbon Dioxide BUN 29 H Creatinine Estimated GFR POC Glucose Random Glucose Hemoglobin A1c 7.4 H Lactic Acid Calcium 8.2 L Phosphorus Magnesium Total Bilirubin AST 10 L ALT Alkaline Phosphatase Ammonia Troponin I Total Protein 5.8 L Albumin 1.5 L Triglycerides HDL Cholesterol Angiotensin Convert Enz Urine Turbidity Urine Glucose (UA) Urine Mucus Pleural WBC 3075 H Pleural RBC 39649 H Lavage Tot WBC Count Stl C.difficile Tox PCR Digoxin 08/27/17 08/27/17 08/27/17 05:30 05:30 05:30 WBC RBC 3.47 L Hgb 10.3 L Hct 30.6 L MCHC Plt Count Neut % (Auto) 88.2 H Lymph % (Auto) 6.3 L Neut # (Auto) 8.4 H Lymph # (Auto) 0.6 L Iron # (Auto) Neutrophils % (Manual) Band Neutrophils % Lymphocytes % Monocytes % Neutrophils # (Manual) Metamyelocytes Myelocytes Nucleated RBCs Platelet Estimate Plt Morphology Comment Basophilic Stippling Stomatocytes APTT Fibrinogen HCO3 Base Excess O2 Saturation ABG pH ABG pCO2 ABG pO2 Hemoglobin Sodium Potassium Chloride 110 H Carbon Dioxide BUN 33 H Creatinine Estimated GFR 85 L POC Glucose Random Glucose 151 H Hemoglobin A1c Lactic Acid Calcium 8.1 L Phosphorus Magnesium Total Bilirubin AST 13 L ALT 11 L Alkaline Phosphatase Ammonia 42 H Troponin I Total Protein 5.6 L Albumin 1.4 L Triglycerides HDL Cholesterol Angiotensin Convert Enz Urine Turbidity Urine Glucose (UA) Urine Mucus Pleural WBC Pleural RBC Lavage Tot WBC Count Stl C.difficile Tox PCR Digoxin 08/28/17 08/28/17 08/29/17 02:18 02:18 05:00 WBC RBC 3.64 L Hgb 10.6 L Hct 32.3 L MCHC Plt Count Neut % (Auto) 89.9 H Lymph % (Auto) 6.4 L Neut # (Auto) 9.2 H Lymph # (Auto) 0.6 L Iron # (Auto) Neutrophils % (Manual) 81 H Band Neutrophils % 11 H Lymphocytes % 4 L Monocytes % Neutrophils # (Manual) 9.4 H Metamyelocytes Myelocytes Nucleated RBCs Platelet Estimate Plt Morphology Comment Basophilic Stippling Stomatocytes APTT Fibrinogen HCO3 Base Excess O2 Saturation ABG pH ABG pCO2 ABG pO2 Hemoglobin Sodium 146 H Potassium Chloride 110 H Carbon Dioxide BUN 30 H 29 H Creatinine Estimated GFR 82 L POC Glucose Random Glucose 140 H 121 H Hemoglobin A1c Lactic Acid Calcium 8.1 L 8.4 L Phosphorus Magnesium Total Bilirubin AST ALT Alkaline Phosphatase Ammonia Troponin I Total Protein Albumin Triglycerides HDL Cholesterol Angiotensin Convert Enz Urine Turbidity Urine Glucose (UA) Urine Mucus Pleural WBC Pleural RBC Lavage Tot WBC Count Stl C.difficile Tox PCR Digoxin 08/30/17 08/31/17 08/31/17 05:00 04:40 04:40 WBC RBC 3.43 L Hgb 10.3 L Hct 31.1 L MCHC Plt Count Neut % (Auto) 90.0 H Lymph % (Auto) 5.2 L Neut # (Auto) 9.9 H Lymph # (Auto) 0.6 L Iron # (Auto) Neutrophils % (Manual) Band Neutrophils % Lymphocytes % Monocytes % Neutrophils # (Manual) Metamyelocytes Myelocytes Nucleated RBCs Platelet Estimate Plt Morphology Comment Basophilic Stippling Stomatocytes APTT Fibrinogen HCO3 Base Excess O2 Saturation ABG pH ABG pCO2 ABG pO2 Hemoglobin Sodium Potassium 3.4 L Chloride Carbon Dioxide 32.3 H 36.0 H BUN 33 H 37 H Creatinine Estimated GFR 71 L 65 L POC Glucose Random Glucose 202 H 183 H Hemoglobin A1c Lactic Acid Calcium 8.1 L 8.3 L Phosphorus Magnesium Total Bilirubin AST ALT Alkaline Phosphatase Ammonia Troponin I Total Protein Albumin Triglycerides HDL Cholesterol Angiotensin Convert Enz Urine Turbidity Urine Glucose (UA) Urine Mucus Pleural WBC Pleural RBC Lavage Tot WBC Count Stl C.difficile Tox PCR Digoxin 09/01/17 09/01/17 09/02/17 05:05 05:05 03:53 WBC RBC 3.43 L Hgb 10.0 L Hct 31.1 L MCHC Plt Count Neut % (Auto) 88.8 H Lymph % (Auto) 5.3 L Neut # (Auto) 9.8 H Lymph # (Auto) 0.6 L Iron # (Auto) Neutrophils % (Manual) Band Neutrophils % Lymphocytes % Monocytes % Neutrophils # (Manual) Metamyelocytes Myelocytes Nucleated RBCs Platelet Estimate Plt Morphology Comment Basophilic Stippling Stomatocytes APTT Fibrinogen HCO3 Base Excess O2 Saturation ABG pH ABG pCO2 ABG pO2 Hemoglobin Sodium Potassium Chloride Carbon Dioxide 37.3 H 36.5 H BUN 44 H 43 H Creatinine Estimated GFR 62 L 63 L POC Glucose Random Glucose 172 H 192 H Hemoglobin A1c Lactic Acid Calcium Phosphorus Magnesium Total Bilirubin AST ALT Alkaline Phosphatase Ammonia Troponin I Total Protein Albumin Triglycerides HDL Cholesterol Angiotensin Convert Enz Urine Turbidity Urine Glucose (UA) Urine Mucus Pleural WBC Pleural RBC Lavage Tot WBC Count Stl C.difficile Tox PCR Digoxin 09/02/17 09/03/17 09/03/17 03:53 05:04 05:04 WBC 13.3 H RBC 3.58 L 3.68 L Hgb 10.3 L 10.5 L Hct 32.1 L 33.4 L MCHC 31.3 L Plt Count Neut % (Auto) Lymph % (Auto) Neut # (Auto) Lymph # (Auto) Iron # (Auto) Neutrophils % (Manual) Band Neutrophils % Lymphocytes % Monocytes % Neutrophils # (Manual) Metamyelocytes Myelocytes Nucleated RBCs Platelet Estimate Plt Morphology Comment Basophilic Stippling Stomatocytes APTT Fibrinogen HCO3 Base Excess O2 Saturation ABG pH ABG pCO2 ABG pO2 Hemoglobin Sodium Potassium Chloride Carbon Dioxide 36.1 H BUN 51 H Creatinine 1.46 H Estimated GFR 47 L POC Glucose Random Glucose 165 H Hemoglobin A1c Lactic Acid Calcium Phosphorus Magnesium Total Bilirubin AST ALT Alkaline Phosphatase Ammonia Troponin I Total Protein Albumin Triglycerides HDL Cholesterol Angiotensin Convert Enz Urine Turbidity Urine Glucose (UA) Urine Mucus Pleural WBC Pleural RBC Lavage Tot WBC Count Stl C.difficile Tox PCR Digoxin 09/03/17 09/03/17 09/03/17 07:40 11:10 16:15 WBC RBC Hgb Hct MCHC Plt Count Neut % (Auto) Lymph % (Auto) Neut # (Auto) Lymph # (Auto) Iron # (Auto) Neutrophils % (Manual) Band Neutrophils % Lymphocytes % Monocytes % Neutrophils # (Manual) Metamyelocytes Myelocytes Nucleated RBCs Platelet Estimate Plt Morphology Comment Basophilic Stippling Stomatocytes APTT Fibrinogen HCO3 37 H 37 H 36 H Base Excess 10.9 H 11.4 H 10.7 H O2 Saturation 89 L* ABG pH 7.33 L 7.37 L 7.37 L ABG pCO2 71 H* 66 H* 65 H* ABG pO2 Hemoglobin 10.7 L 10.5 L 11.8 L Sodium Potassium Chloride Carbon Dioxide BUN Creatinine Estimated GFR POC Glucose Random Glucose Hemoglobin A1c Lactic Acid Calcium Phosphorus Magnesium Total Bilirubin AST ALT Alkaline Phosphatase Ammonia Troponin I Total Protein Albumin Triglycerides HDL Cholesterol Angiotensin Convert Enz Urine Turbidity Urine Glucose (UA) Urine Mucus Pleural WBC Pleural RBC Lavage Tot WBC Count Stl C.difficile Tox PCR Digoxin 09/04/17 09/04/17 09/04/17 04:45 04:45 10:50 WBC RBC 2.71 L Hgb 7.9 L D Hct 24.9 L MCHC 31.6 L Plt Count Neut % (Auto) Lymph % (Auto) Neut # (Auto) Lymph # (Auto) Iron # (Auto) Neutrophils % (Manual) Band Neutrophils % Lymphocytes % Monocytes % Neutrophils # (Manual) Metamyelocytes Myelocytes Nucleated RBCs Platelet Estimate Plt Morphology Comment Basophilic Stippling Stomatocytes APTT Fibrinogen HCO3 36 H Base Excess 9.9 H O2 Saturation 89 L* ABG pH 7.35 L ABG pCO2 66 H* ABG pO2 Hemoglobin 10.5 L Sodium Potassium Chloride Carbon Dioxide 33.8 H BUN 62 H D Creatinine 1.88 H Estimated GFR 35 L POC Glucose Random Glucose 169 H Hemoglobin A1c Lactic Acid Calcium Phosphorus Magnesium Total Bilirubin AST ALT Alkaline Phosphatase Ammonia Troponin I Total Protein Albumin Triglycerides HDL Cholesterol Angiotensin Convert Enz Urine Turbidity Urine Glucose (UA) Urine Mucus Pleural WBC Pleural RBC Lavage Tot WBC Count Stl C.difficile Tox PCR Digoxin 09/05/17 09/05/17 09/06/17 03:48 03:48 03:53 WBC 12.9 H RBC 3.46 L Hgb 10.0 L D Hct 31.1 L MCHC Plt Count Neut % (Auto) Lymph % (Auto) Neut # (Auto) Lymph # (Auto) Iron # (Auto) Neutrophils % (Manual) Band Neutrophils % Lymphocytes % Monocytes % Neutrophils # (Manual) Metamyelocytes Myelocytes Nucleated RBCs Platelet Estimate Plt Morphology Comment Basophilic Stippling Stomatocytes APTT Fibrinogen HCO3 Base Excess O2 Saturation ABG pH ABG pCO2 ABG pO2 Hemoglobin Sodium 146 H 148 H Potassium Chloride Carbon Dioxide 33.4 H 35.4 H BUN 69 H 66 H Creatinine 1.82 H 1.67 H Estimated GFR 36 L 40 L POC Glucose Random Glucose 199 H 177 H Hemoglobin A1c Lactic Acid Calcium Phosphorus Magnesium 3.4 H Total Bilirubin AST 39 H ALT Alkaline Phosphatase 288 H Ammonia Troponin I Total Protein Albumin 1.6 L Triglycerides HDL Cholesterol Angiotensin Convert Enz Urine Turbidity Urine Glucose (UA) Urine Mucus Pleural WBC Pleural RBC Lavage Tot WBC Count Stl C.difficile Tox PCR Digoxin 09/06/17 09/07/17 09/07/17 03:53 11:33 11:33 WBC 11.6 H 12.5 H RBC 3.64 L 3.37 L Hgb 10.5 L 9.6 L Hct 32.3 L 29.8 L MCHC Plt Count Neut % (Auto) 81.4 H 82.6 H Lymph % (Auto) 8.1 L 7.5 L Neut # (Auto) 9.4 H 10.3 H Lymph # (Auto) 0.9 L 0.9 L Iron # (Auto) 1.0 H Neutrophils % (Manual) Band Neutrophils % 23 H 12 H Lymphocytes % 4 L Monocytes % Neutrophils # (Manual) 10.1 H 10.0 H Metamyelocytes 4 H Myelocytes 1 H Nucleated RBCs Platelet Estimate Plt Morphology Comment Basophilic Stippling Stomatocytes 1+ H APTT Fibrinogen HCO3 Base Excess O2 Saturation ABG pH ABG pCO2 ABG pO2 Hemoglobin Sodium 148 H Potassium Chloride 108 H Carbon Dioxide 35.2 H BUN 68 H Creatinine 1.57 H Estimated GFR 43 L POC Glucose Random Glucose 146 H Hemoglobin A1c Lactic Acid Calcium Phosphorus Magnesium 3.1 H Total Bilirubin AST ALT Alkaline Phosphatase 250 H Ammonia Troponin I Total Protein Albumin 1.5 L Triglycerides HDL Cholesterol Angiotensin Convert Enz Urine Turbidity Urine Glucose (UA) Urine Mucus Pleural WBC Pleural RBC Lavage Tot WBC Count Stl C.difficile Tox PCR Digoxin 09/07/17 09/07/17 09/08/17 14:00 15:27 06:00 WBC RBC Hgb Hct MCHC Plt Count Neut % (Auto) Lymph % (Auto) Neut # (Auto) Lymph # (Auto) Iron # (Auto) Neutrophils % (Manual) Band Neutrophils % Lymphocytes % Monocytes % Neutrophils # (Manual) Metamyelocytes Myelocytes Nucleated RBCs Platelet Estimate Plt Morphology Comment Basophilic Stippling Stomatocytes APTT Fibrinogen HCO3 Base Excess O2 Saturation ABG pH ABG pCO2 ABG pO2 Hemoglobin Sodium Potassium Chloride Carbon Dioxide BUN 66 H Creatinine 1.45 H Estimated GFR 47 L POC Glucose Random Glucose 118 H Hemoglobin A1c Lactic Acid Calcium Phosphorus Magnesium Total Bilirubin AST ALT Alkaline Phosphatase Ammonia Troponin I Total Protein Albumin Triglycerides HDL Cholesterol Angiotensin Convert Enz Urine Turbidity Urine Glucose (UA) Urine Mucus Pleural WBC Pleural RBC Lavage Tot WBC Count 138.000 H Stl C.difficile Tox PCR Digoxin 2.1 H 09/08/17 09/09/17 09/09/17 06:00 09:24 09:24 WBC 12.6 H 21.5 H RBC 3.53 L 3.58 L Hgb 10.1 L 10.3 L Hct 31.4 L 32.1 L MCHC Plt Count Neut % (Auto) 90.3 H Lymph % (Auto) 3.6 L Neut # (Auto) 19.4 H Lymph # (Auto) 0.8 L Iron # (Auto) 1.2 H Neutrophils % (Manual) 71 H Band Neutrophils % 13 H Lymphocytes % 3 L Monocytes % 10 H Neutrophils # (Manual) 18.7 H Metamyelocytes Myelocytes 2 H Nucleated RBCs 1 H Platelet Estimate Plt Morphology Comment Basophilic Stippling Stomatocytes 1+ H APTT Fibrinogen HCO3 Base Excess O2 Saturation ABG pH ABG pCO2 ABG pO2 Hemoglobin Sodium 146 H Potassium Chloride Carbon Dioxide BUN 57 H Creatinine 1.39 H Estimated GFR 49 L POC Glucose Random Glucose 122 H Hemoglobin A1c Lactic Acid Calcium Phosphorus Magnesium 3.0 H Total Bilirubin 1.4 H AST ALT Alkaline Phosphatase 226 H Ammonia Troponin I Total Protein Albumin 1.8 L Triglycerides HDL Cholesterol Angiotensin Convert Enz Urine Turbidity Urine Glucose (UA) Urine Mucus Pleural WBC Pleural RBC Lavage Tot WBC Count Stl C.difficile Tox PCR Digoxin 09/09/17 09/09/17 09/10/17 13:05 16:45 05:52 WBC RBC Hgb Hct MCHC Plt Count Neut % (Auto) Lymph % (Auto) Neut # (Auto) Lymph # (Auto) Iron # (Auto) Neutrophils % (Manual) Band Neutrophils % Lymphocytes % Monocytes % Neutrophils # (Manual) Metamyelocytes Myelocytes Nucleated RBCs Platelet Estimate Plt Morphology Comment Basophilic Stippling Stomatocytes APTT Fibrinogen HCO3 30 H Base Excess 4.9 H O2 Saturation 89 L* ABG pH ABG pCO2 52 H* ABG pO2 Hemoglobin 11.2 L Sodium 149 H Potassium Chloride 110 H Carbon Dioxide BUN 63 H Creatinine 1.31 H Estimated GFR 53 L POC Glucose Random Glucose 142 H Hemoglobin A1c Lactic Acid Calcium 8.2 L D Phosphorus Magnesium 2.8 H Total Bilirubin AST ALT Alkaline Phosphatase 139 H Ammonia Troponin I Total Protein 5.7 L D Albumin 1.2 L D Triglycerides HDL Cholesterol Angiotensin Convert Enz Urine Turbidity Urine Glucose (UA) Urine Mucus Pleural WBC 375 H Pleural RBC 4618 H Lavage Tot WBC Count Stl C.difficile Tox PCR Digoxin 09/10/17 09/10/17 09/11/17 07:45 10:45 04:06 WBC 24.4 H RBC 4.13 L Hgb 11.8 L Hct 37.4 L MCHC 31.4 L Plt Count Neut % (Auto) 87.9 H Lymph % (Auto) 4.0 L Neut # (Auto) 21.4 H Lymph # (Auto) Iron # (Auto) 1.9 H Neutrophils % (Manual) 81 H Band Neutrophils % 8 H Lymphocytes % 6 L Monocytes % Neutrophils # (Manual) 22.0 H Metamyelocytes Myelocytes 1 H Nucleated RBCs Platelet Estimate Plt Morphology Comment Basophilic Stippling Stomatocytes APTT Fibrinogen HCO3 29 H Base Excess 4.1 H O2 Saturation 88 L* ABG pH 7.36 L ABG pCO2 54 H* ABG pO2 Hemoglobin Sodium 151 H Potassium 3.4 L D Chloride 110 H Carbon Dioxide BUN 61 H Creatinine Estimated GFR 56 L POC Glucose Random Glucose 191 H Hemoglobin A1c Lactic Acid Calcium Phosphorus Magnesium 3.0 H Total Bilirubin 1.1 H AST ALT Alkaline Phosphatase 180 H Ammonia Troponin I Total Protein 8.3 H D Albumin 1.7 L Triglycerides HDL Cholesterol Angiotensin Convert Enz Urine Turbidity Urine Glucose (UA) Urine Mucus Pleural WBC Pleural RBC Lavage Tot WBC Count Stl C.difficile Tox PCR Digoxin 09/11/17 09/11/17 09/12/17 04:06 06:15 03:40 WBC 22.1 H RBC 3.83 L Hgb 11.0 L Hct 33.9 L MCHC Plt Count 489 H Neut % (Auto) 94.2 H Lymph % (Auto) 3.1 L Neut # (Auto) 20.8 H Lymph # (Auto) 0.7 L Iron # (Auto) Neutrophils % (Manual) 91 H Band Neutrophils % Lymphocytes % 4 L Monocytes % Neutrophils # (Manual) 21.0 H Metamyelocytes Myelocytes 1 H Nucleated RBCs Platelet Estimate HIGH H Plt Morphology Comment CLUMPED H Basophilic Stippling FAINT H Stomatocytes APTT Fibrinogen HCO3 32 H Base Excess 7.4 H O2 Saturation ABG pH ABG pCO2 55 H* ABG pO2 Hemoglobin Sodium 151 H Potassium 3.3 L Chloride 108 H Carbon Dioxide 32.2 H BUN 72 H D Creatinine 1.34 H Estimated GFR 51 L POC Glucose Random Glucose 183 H Hemoglobin A1c Lactic Acid Calcium Phosphorus Magnesium 2.7 H Total Bilirubin AST ALT Alkaline Phosphatase 154 H Ammonia Troponin I Total Protein Albumin 1.6 L Triglycerides HDL Cholesterol Angiotensin Convert Enz Urine Turbidity Urine Glucose (UA) Urine Mucus Pleural WBC Pleural RBC Lavage Tot WBC Count Stl C.difficile Tox PCR Digoxin 09/12/17 09/13/17 09/13/17 03:40 03:14 03:14 WBC 21.2 H 20.7 H RBC 3.63 L 3.56 L Hgb 10.2 L 10.1 L Hct 32.0 L 31.6 L MCHC 31.9 L 31.9 L Plt Count 493 H Neut % (Auto) 92.8 H 91.6 H Lymph % (Auto) 2.6 L 2.7 L Neut # (Auto) 19.7 H 18.9 H Lymph # (Auto) 0.6 L 0.6 L Iron # (Auto) 1.2 H Neutrophils % (Manual) 82 H 89 H Band Neutrophils % 9 H Lymphocytes % 2 L 3 L Monocytes % Neutrophils # (Manual) 19.5 H 19.9 H Metamyelocytes Myelocytes 1 H Nucleated RBCs Platelet Estimate HIGH H HIGH H Plt Morphology Comment Basophilic Stippling Stomatocytes APTT Fibrinogen HCO3 Base Excess O2 Saturation ABG pH ABG pCO2 ABG pO2 Hemoglobin Sodium 147 H Potassium Chloride 109 H Carbon Dioxide BUN 71 H Creatinine Estimated GFR 62 L POC Glucose Random Glucose 233 H Hemoglobin A1c Lactic Acid Calcium 8.3 L Phosphorus Magnesium 2.8 H Total Bilirubin AST ALT Alkaline Phosphatase 138 H Ammonia Troponin I Total Protein Albumin 1.7 L Triglycerides HDL Cholesterol Angiotensin Convert Enz Urine Turbidity Urine Glucose (UA) Urine Mucus Pleural WBC Pleural RBC Lavage Tot WBC Count Stl C.difficile Tox PCR Digoxin 09/14/17 09/14/17 09/15/17 17:42 22:35 03:18 WBC 21.0 H RBC 3.56 L Hgb 10.0 L Hct 31.3 L MCHC Plt Count Neut % (Auto) Lymph % (Auto) Neut # (Auto) Lymph # (Auto) Iron # (Auto) Neutrophils % (Manual) Band Neutrophils % Lymphocytes % Monocytes % Neutrophils # (Manual) Metamyelocytes Myelocytes Nucleated RBCs Platelet Estimate Plt Morphology Comment Basophilic Stippling Stomatocytes APTT Fibrinogen HCO3 Base Excess O2 Saturation ABG pH ABG pCO2 ABG pO2 Hemoglobin Sodium Potassium Chloride Carbon Dioxide BUN Creatinine Estimated GFR POC Glucose 260 H Random Glucose Hemoglobin A1c Lactic Acid Calcium Phosphorus Magnesium Total Bilirubin AST ALT Alkaline Phosphatase Ammonia Troponin I Total Protein Albumin Triglycerides HDL Cholesterol Angiotensin Convert Enz Urine Turbidity Urine Glucose (UA) Urine Mucus Pleural WBC Pleural RBC Lavage Tot WBC Count Stl C.difficile Tox PCR Positive H Digoxin 09/15/17 09/15/17 09/15/17 03:18 12:47 17:15 WBC RBC Hgb Hct MCHC Plt Count Neut % (Auto) Lymph % (Auto) Neut # (Auto) Lymph # (Auto) Iron # (Auto) Neutrophils % (Manual) Band Neutrophils % Lymphocytes % Monocytes % Neutrophils # (Manual) Metamyelocytes Myelocytes Nucleated RBCs Platelet Estimate Plt Morphology Comment Basophilic Stippling Stomatocytes APTT Fibrinogen HCO3 Base Excess O2 Saturation ABG pH ABG pCO2 ABG pO2 Hemoglobin Sodium Potassium Chloride Carbon Dioxide 32.2 H BUN 56 H Creatinine Estimated GFR 80 L POC Glucose 289 H 304 H Random Glucose 294 H Hemoglobin A1c Lactic Acid Calcium 7.9 L Phosphorus Magnesium Total Bilirubin AST ALT Alkaline Phosphatase 135 H Ammonia Troponin I Total Protein Albumin 1.8 L Triglycerides HDL Cholesterol Angiotensin Convert Enz Urine Turbidity Urine Glucose (UA) Urine Mucus Pleural WBC Pleural RBC Lavage Tot WBC Count Stl C.difficile Tox PCR Digoxin 09/16/17 09/16/17 09/16/17 04:10 04:10 11:25 WBC 27.1 H RBC 3.69 L Hgb 10.8 L Hct 33.1 L MCHC Plt Count Neut % (Auto) Lymph % (Auto) Neut # (Auto) Lymph # (Auto) Iron # (Auto) Neutrophils % (Manual) Band Neutrophils % Lymphocytes % Monocytes % Neutrophils # (Manual) Metamyelocytes Myelocytes Nucleated RBCs Platelet Estimate Plt Morphology Comment Basophilic Stippling Stomatocytes APTT Fibrinogen HCO3 Base Excess O2 Saturation ABG pH ABG pCO2 ABG pO2 Hemoglobin Sodium Potassium 5.2 H Chloride Carbon Dioxide 32.3 H BUN 59 H Creatinine Estimated GFR 81 L POC Glucose Random Glucose 266 H Hemoglobin A1c Lactic Acid Calcium Phosphorus Magnesium Total Bilirubin AST ALT Alkaline Phosphatase 137 H Ammonia Troponin I Total Protein Albumin 1.8 L Triglycerides HDL Cholesterol Angiotensin Convert Enz Urine Turbidity Urine Glucose (UA) Urine Mucus Few H Pleural WBC Pleural RBC Lavage Tot WBC Count Stl C.difficile Tox PCR Digoxin 09/16/17 09/16/17 14:17 17:27 WBC RBC Hgb Hct MCHC Plt Count Neut % (Auto) Lymph % (Auto) Neut # (Auto) Lymph # (Auto) Iron # (Auto) Neutrophils % (Manual) Band Neutrophils % Lymphocytes % Monocytes % Neutrophils # (Manual) Metamyelocytes Myelocytes Nucleated RBCs Platelet Estimate Plt Morphology Comment Basophilic Stippling Stomatocytes APTT Fibrinogen HCO3 Base Excess O2 Saturation ABG pH ABG pCO2 ABG pO2 Hemoglobin Sodium Potassium Chloride Carbon Dioxide BUN Creatinine Estimated GFR POC Glucose 283 H 271 H Random Glucose Hemoglobin A1c Lactic Acid Calcium Phosphorus Magnesium Total Bilirubin AST ALT Alkaline Phosphatase Ammonia Troponin I Total Protein Albumin Triglycerides HDL Cholesterol Angiotensin Convert Enz Urine Turbidity Urine Glucose (UA) Urine Mucus Pleural WBC Pleural RBC Lavage Tot WBC Count Stl C.difficile Tox PCR Digoxin - Diagnostic Findings Additional findings: 09/15/2017 MRI cervical spine images are reviewed. The study reveals a possible previous mid cervical laminectomy. There is severe C4-5 canal stenosis with significant posterior osteophytic disc complex as well as posterior ligament and facet hypertrophy impinging on the spinal cord and canal. Severe increased signal intensity within the cord indicating myelomalacia, possible cord infarction or ischemia. There is also moderate C3-4 and C6-7 stenosis without signal intensity change at these levels. Assessment and Plan - Plan Impression: 1. 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 2. Sepsis 3. Respiratory failure, tracheostomy in place. Now on CPAP Plan: Findings were discussed with the patient's son on the telephone. He was to come to the hospital this afternoon to discuss the patient's care and treatment options, but has not arrived as of the time of this note. This patient remains critically ill, with severe spinal cord injury and deficit. Prognosis for any reasonable recovery of extremity motor function is extremely poor. It would be appropriate to get palliative care involved to assist with family decision making.
[2017-09-16] MEDS: Insulin Detemir Inj 1,000 UNIT/10 ML Vial SQ SCH (21:49)
[2017-09-17] MEDS: Metoprolol Tartrate 25 MG Tablet PO SCH ×3 (00:23→17:16)
[2017-09-17] MEDS: Insulin NovoLOG Aspart Correctional Sugar Inj SQ SCH ×6 (00:28→22:11)
[2017-09-17] MEDS: Oral Hygiene Kit OROPHARYNG SCH ×4 (00:29→17:15)
--- NOTE | 2017-09-17 04:31 | XR ---
EXAM DATE: 09/17/2017 4:22 AM EDT AGE/SEX: 77 years / Male INDICATIONS: Difficulty breathing. CLINICAL DATA: This is the patient's subsequent encounter. Patient reports that signs and symptoms h ave been present for 2 weeks and indicates a pain score of Nonresponsive. MEDICAL/SURGICAL HISTORY: . Hypertension. Diabetes mellitus type II. Emphysema. TB, Afib. None . COMPARISON: C, CHEST 1V SINGLE AP, 09/16/2017. . FINDINGS: There is improved aeration of the lungs with decrease density to the left midlung infiltrate. The rig ht lung is clear. No evidence of pneumothorax. Tracheostomy in place. No blunting of the costophrenic angles. The heart is normal size. CONCLUSION: Improving but persistent interstitial infiltrate left midlung. Electronically signed by: Daniel Stanley MD 09/17/2017 4:29 AM EDT
[2017-09-17] MEDS: Chlorhexidine Gluconate 2% 1 Pack (2 Cloths) TOPICAL SCH (04:40)
[2017-09-17] MEDS: Piperacil/Tazo 4.5 GM Premix 4.5 GM/100 ML BAG IV.SIG SCH ×4 (04:55→22:16)
[2017-09-17] MEDS: MethylPREDNISolone Sod Succinate Inj 40 MG/ML Vial IV.PUSH SCH ×4 (04:55→22:14)
[2017-09-17 05:01] LABS: Hematocrit 31.6 % (39.0-51.0); Hemoglobin 10.1 gm/dL (13.0-17.0); Mean Corpuscular Hemoglobin 28.7 pg (27.0-34.0); Mean Corpuscular Volume 89.7 fL (80.0-100.0); Mean Platelet Volume 7.8 fL (7.0-11.0); Platelet Count 308 th/mm3 (150-450); Red Blood Count 3.52 mil/mm3 (4.50-5.90)
[2017-09-17] MEDS: Heparin - SQ 10,000 UNITS/ML Vial SQ SCH ×3 (05:18→22:19)
[2017-09-17] MEDS: Artificial Tears Opth Drops 15 ML Bottle EACH EYE SCH ×3 (05:19→22:20)
[2017-09-17 05:23] LABS: Albumin 1.8 g/dL (3.4-5.0); Anion Gap 7 meq/L (5-15); Aspartate Aminotransferase 21 U/L (15-37); Blood Urea Nitrogen 57 mg/dL (7-18); Calcium 8.6 mg/dL (8.5-10.1); Carbon Dioxide 35.9 meq/L (21.0-32.0); Chloride 100 meq/L (98-107); Glomerular Filtration Rate 84 mL/min (>89); Glucose,Random 197 mg/dL (74-106); Potassium 4.5 meq/L (3.5-5.1); Sodium 143 meq/L (136-145)
[2017-09-17 05:24] LABS: Alanine Aminotransferase 41 U/L (12-78)
[2017-09-17 05:38] LABS: Alkaline Phosphatase 118 U/L (45-117); Digoxin 1.1 ng/mL (0.8-2.0)
--- NOTE | 2017-09-17 08:44 | P.PNCC ---
Subjective Subjective Remarks/Hospital Course: This is a 77-year-old [place] male/Mandarin speaking only. Date of admission 08/21/2017. Date of consultation 08/23/2017. Past medical history is documented as hypertension, gout and diabetes mellitus. He is on no home medications. He does have remote history of tuberculosis 10 years ago. He quit tobacco use 20 years ago. He presented to [facility] on 08/21/2017 with a 3-4 days of intermittent pain in this region that acutely acutely worsened on 08/20 . They state the pain is in the right upper quadrant and radiates to the upper thorax and around his back. Hospital workup included a CT pulmonary angiogram which revealed bilateral emphysema. Multiple bilateral pulmonary nodules present with the largest in the right lung measuring 2.8 cm and the largest in the left lung measuring 2.6 cm. Severe compressive atelectasis in the right lower lobe. Moderate-sized pulmonary effusion. Pleural thickening in the anterior inferior hemothorax. Right paratracheal lymph node 15 mm. 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 No lytic bone lesions. Also noted significant coronary artery and aortic atherosclerotic calcifications. Patient was evaluated by hematology. Recommended lung biopsy when stable. She has become increasingly short of breath and was transferred from a [facility] to BiP at 70%. Patient became less responsive and we were consulted. Patient required intubation/central line placement is currently having a right pigtail catheter placed to remove fluid from right lung. 08/24: hypotensive this AM requiring levophed at 8 mcg/min. drained 600cc of serosanguinous fluid out of chest tube. responded successfully to straight-leg challenge. intubated, sedated. remains very critically ill. 08/25: Afebrile. Off all antihypertensives and vasopressin. Currently normal saline at 100 cc an hour. On propofol and fentanyl drips. 08/26: Afebrile. No tonsillar creatinine currently at 20 cc an hour. Remains on increased propofol drip at 40 mcg/kg/min secondary to severe agitation overnight and on attempted spontaneous breathing trials. Will try dexmedetomidine attempt to wean today. 08/27: Worsening lung infiltrates associated with hydration. Afebrile. Known diastolic dysfunction. He appears to be exquisitely sensitive to fluid balance. Presently converting to Precedex and will try spontaneous breathing trials. 08/28: Continued worsening bilateral lung infiltrates. IV fluid has been stopped yesterday, will add additional diuretics. Diffusion gradient worsened, unable to wean from ventilator. 08/29: Mild improvement in lung infiltrates after diuresis without harming renal function. Remains ventilator dependent. Biopsy yesterday, results pending. 08/30: Worsening gas exchange with deteriorating diffusion capacity and requirements for increased inspired oxygen concentration. This all despite 2 L diuresis. Await pathology results. 08/31: Lung infiltrates resolving with diuresis. Continues to behave like diastolic heart failure. Contraction alkalosis is developing will add a carbonic anhydrase inhibitor for a couple of days. T-max 100.8 but for the most part he has been afebrile. Lung mass does appear to be a malignancy. Agree with attempt to rebiopsy at some point. We will continue to diuresis until his kidneys squeak. At 7-10 days of antibiotics it may be best to stop treatment and reculture for fevers. I will defer to the pulmonary service. 09/01: remains intubated and sedated. continues to fail any weaning attempts. consulted palliative to assist in goals of care: may need tracheostomy for further aggressive care. 09/02: palliative meeting with family again today. no improvements. it has been greater than 10 days of full empiric antibiotics: will discontinue and re- culture for fever. 09/03: chest tube on water seal with minimal output. cxr unchanged. CT removed today on my eval. no other changes or improvements. unlikely to have favorable outcome. quite hypercarbic despite full vent support: will make changes to ventilation to assist with hypercarbic. 09/04: Remains sedated, orally intubated on mechanical ventilation. 09/05: Remains sedated, orally intubated on mechanical ventilation. Failed CPAP trials yesterday. 09/06: Sedated, arousable, orally intubated on mechanical ventilation. Failed CPAP trials yesterday. Family wishes to continue aggressive care and desire trach and PEG. 09/07: T-max 100.3. One bowel movement yesterday. Failed CPAP trials yesterday. OG tube plugged overnight and able to place new feeding tube at the present time. We will switch all medications to IV at the present time including amiodarone drip at 0.5 mg/min. Check digoxin level prior to resuming IV. Subjective: 6/25: T-max 99.2. Currently afebrile. One bowel movement overnight. Plan for percutaneous tracheostomy today. GI consult for PEG placement. CT chest revealed small bilateral pleural effusions. Persistent right middle lobe mass which we will consult IR again for rebiopsy. Will ask pulmonary to see again 09/09: Remains on full vent support more critical today increasing oxygen requirement FiO2 at 65 of have increase PEEP to 10 to attempt wean oxygen. Air entry markedly diminished bilaterally. Chest x-ray shows bilateral prominent interstitial infiltrates. Fluid up by approximately 10 kg. I will discontinue half-normal saline. Lasix 40 mg IV 1 09/10: Patient remains critical showing agonal breathing on the ventilator. Bilateral coarse breath sounds. Chest x-ray shows bilateral patchy infiltrates improved left effusion after thoracentesis and removal of 1 L of fluid. However FiO2 requirement remains high at 65%. UO 1.5L in 24 hours. Lab work pending. IV steroids started for probable COPD exacerbation given history of smoking 09/11: Remains critical but slightly more stable. Breathing pattern has improved and oxygenation has improved after starting IV steroids for COPD exacerbation and thoracentesis on 09/09/2017. Currently FiO2 down to 50%, PEEP at 10. We will further wean. Sodium increased to 151 start quarter normal saline, increase Lasix. Family wished to proceed with full code. PEG today 09/12: Remains intubated sedated with propofol. Urine output 1.8 L. BUN/ creatinine slightly increased today 72/1.34. Will reduce Lasix dose also reduce Solu-Medrol. Vent dyssynchrony has improved but FiO2 remains high at 55% 09/13: Off all sedation for 24 hours. Apparently patient notes has had one family is at bedside asking questions. BUN/creatinine slightly improved 71/ 1.14 from 72/1.34. WBC count slightly improved to 20.7. FiO2 at 45% chest x- ray shows some interval improvement. Also Na improved to 147 09/14: Remains intubated off sedation. Slightly tachypneic on pressure support . Urine output approximately 1500 mL in 24 hours 09/15: Patient clearly more awake today seems to understand some of the commands. Concern about quadriparesis patient is not able to withdrawal to pain 4, even though it appears he does feel the pain. MRI of the C-spine ordered. Neurology consulted. Otherwise BUN/creatinine slightly improved 09/16: Patient remains quadriparetic, slight movement of the left upper extremity. MRI of the C-spine shows focal severe spinal canal stenosis at C4-5 , with increased signal within the body of the spinal cord at this level most likely representing some myelomalacia. Moderate diffuse broad-based bulging at C3-4 with some mild increased signal in the spinal cord at this level. Moderate spinal canal stenosis at C6-C7. Also there is evidence of tracheostomy site infection. Explained MRI findings to son and patient's using electronic real estate closer. Discussed with Dr. Carvalho. Increase Solu-Medrol to 250 mg IV every 6 hours. Consult neurosurgery 09/17: Remains septic, remains quadriplegic. Slight movements of the left upper extremity noted. C. difficile positive p.o. vancomycin added by ID yesterday. Appreciate input from Dr. Victor. Patient hs severe upper cervical stenosis with myelopathy and resultant SCI/severe quadriplegia of the upper and lower extremities. Prognosis very poor per neurosurgery Objective Vital Signs / I&O: Vital Signs 09/16/17 11:09 09/16/17 12:00 09/16/17 15:58 Temperature 99.1 F Pulse Rate 78 Respiratory Rate 28 H 27 H 26 H Blood Pressure 136/65 Pulse Oximetry 98 97 94 L 09/16/17 16:00 09/16/17 19:28 09/16/17 20:00 Temperature 99.2 F 98.7 F Pulse Rate 82 94 H 94 H Respiratory Rate 28 H 24 24 Blood Pressure 138/68 98/69 L Pulse Oximetry 94 L 09/17/17 00:00 09/17/17 03:31 09/17/17 04:00 Temperature 98.9 F 98.0 F Pulse Rate 90 94 H 98 H Respiratory Rate 24 23 22 Blood Pressure 100/60 135/72 Pulse Oximetry 98 97 97 Intake & Output 09/16/17 09/17/17 09/17/17 18:59 06:59 18:59 Intake Total 1480.5 / 1480.5 902 / 902 Output Total 3250 / 3250 1025 / 1025 Balance -1769.5 / -1769.5 -123 / -123 Weight 71.9 kg Intake: IV 462.5 / 462.5 100 / 100 Zosyn 4.5 GM Premix 4.5 gm In 200 / 200 100 / 100 100 ml @ 200 mls/hr IV.SIG Q6H MICHELET Rx#:[id number] Vancomycin Inj 1,250 MG In NS 262.5 / 262.5 Inj 250 ML @ 250 mls/hr IV.SIG ONCE ONE Rx#:[id number] Tube Feeding 558 / 558 542 / 542 Tube Irrigant 60 / 60 60 / 60 Water Bolus Amount 400 / 400 200 / 200 Output: Urine 1450 / 1450 Stool 100 / 100 75 / 75 Urine Amount (Catheter) 1700 / 1700 950 / 950 Indwelling Urethral Catheter 1700 / 1700 950 / 950 Other: Date of Last Bowel Movement 09/16/17 09/16/17 Result Diagrams: 09/17/17 04:00 09/17/17 04:00 Objective Remarks: GENERAL: 77-year-old male currently ventilated via trach, more awake today, but no movements of any limbs SKIN: Warm and dry. No rash HEAD: Atraumatic. Normocephalic. EYES: Pupils equal and round about 2 mm bilaterally reactive. No scleral icterus. No injection or drainage. ENT: No nasal bleeding or discharge. Mucous membranes dry. NECK: Trachea midline. Trach site erythematous infected appearing with foul smelling discharge CARDIOVASCULAR: Heart rate well controlled now. S1, S3 no S4. Without murmur. No JVD LUNGS: Coarse rhonchorous breath sounds, wheezes bilaterally improved. On PRVC/ AC GASTROINTESTINAL: Abdomen soft, non-tender, nondistended. No guarding. MUSCULOSKELETAL: Extremities without significant peripheral edema. No obvious deformities. NEUROLOGICAL: Off all sedation. Eyes spontaneously open, appears to understand verbal commands, moves his head side to side. Quadriplegic. Unable to move upper and bilateral lower extremity. Very slight movement of left fingers, absent reflexes x4. No withdrawal of extremities 4. Sensation appears somewhat preserved Assessment and Plan - Assessment and Plan Plan: A/P Assessment and Plan Neuro/Psych: Acute toxic metabolic encephalopathy Quadriplegia Severe cervical spinal cord stenosis, with acute spinal cord injury MRI of the C-spine 09/15: Severe upper cervical stenosis with myelopathy. Severe quadriplegia of the upper and lower extremities with some preserved residual sensory function. Neurosurgery Dr. Victor. Poor chance of neurological recovery for him Neurology Dr. Carvalho, Per his recommendations increased Solu-Medrol to 250 mg IV every 6 hours 09/16/[address] 08/23: 2 questionable tiny focal hemorrhages. MRI of brain 08/26 chronic small vessel ischemic and atrophic changes CT brain 09/05 revealed bilateral maxillary sinusitis. No other acute finding EEG 09/03 revealed severe encephalopathy. No epileptiform activity Acetaminophen 650 mg by tube every 6 hours as needed fever versus. Ofirmev 1 g IV every 6 hours as needed n.p.o. PT/OT CV: Uncontrolled hypertension septic shock- resolved Atherosclerotic coronary artery disease Atrial fibrillation Elevated troponin downward trend Fluid overload Continue IV Lasix 20 mg IV daily Use Cardene infusion if needed to control blood pressure Amiodarone Discontinued 09/07 secondary to bradycardia and pauses Continue metoprolol 25 mg p.o. q8h Continue to hold Digoxin. 1.6 09/16. (Dig level 09/07.- 2.1. Recheck 09/09 1.4, 0.8 09/12/17) (Home medication is NITRENDIPINE 10 mg by mouth daily) Currently off all vasopressors, hypertensive Resp: Acute hypoxic hypercapnic respiratory failure COPD with exacerbation/Emphysema Trach site infection Bilateral pleural effusion/status post chest tube right-sided transudative in nature. Chest tube removed 09/04 Multiple bilateral pulmonary masses vs infiltrate, RML mass vs consolidation Pulmonary edema Tolerating pressure support ventilation, slightly tachypneic. Oxygen requirement has increased now to 60% will wean slowly Continue IV Solu-Medrol at increased dose as above for acute spinal cord injury , continue inhaled budesonide Albuterol/ipratropium aerosols every 4 hours with albuterol aerosols every 2 hours as needed dyspnea CT pulmonary angiogram revealed 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 Right middle lobe 2.7 x 2.2 x 7's. Spiculated. Left lingula is 3.4 x 3.20 cm. Underlying pronounced emphysematous type changes throughout lung larios. Right pleural effusion. CT thorax 09/08 revealed multiple areas of consolidation bilaterally. Prior granulomatous disease. Focal consolidation or mass in the right middle lobe that appears unchanged. Lung mass biopsied on August 28 -results - CHRONIC INFLAMMATORY AND REACTIVE FIBROBLASTIC TISSUE CONTAINING ENTRAPPED BENIGN EPITHELIUM reconsult IR 09/08 for repeat biopsy Followed by Dr. Hardy/pulmonology. Reconsulted 09/08, recommended repeat CT in 4 weeks. Hold off the IR guided biopsy time due to unstable respiratory status, neuro status s/p percutaneous tracheostomy 09/08 (Biga/Michael). Zosyn and vancomycin for trach site infection. May remove trach sutures Status post thoracentesis left side 09/09 with 1 L fluid removed. No evidence of infection GI: Hypoalbuminemia Elevated total protein C. difficile colitis s/p PEG 09/11. Tolerating tube feeds with Glucerna, free water flushes today IV pantoprazole. Docusate sodium/senna 1 tablet twice daily for bowel regimen along with polyethylene glycol 17 g Twice daily and lactulose 30 cc twice daily- hold for diarrhea P.o. vancomycin for C. difficile : Urinary retention, possible urinary stricture Acute kidney injury Maintain Larson catheter. Monitor urine output, Accurate I's and O's significant difficulty due to obstruction which may be urethral stricture which prevented serial i/o. replaced Larson catheter. IV Lasix dose reduced due to worsening BUN/creatinine as above Avoid nephrotoxic drugs Endo: Diabetes mellitus Hyperglycemia History of gout Sliding scale insulin with NovoLog low regimen to maintain euglycemia Holding home medications of allopurinol 300 mg daily and colchicine 0.6 mg as needed Holding home medications of metformin 5 mg twice daily Heme: Normocytic anemia Monitor CBC daily. Follow trends Coags within normal limits ID: Severe sepsis Trach site infection Healthcare associated pneumonia C. difficile colitis Appreciate ID input. Continue IV vancomycin, IV Zosyn. Continue Diflucan and p.o. vancomycin Follow-up on cultures including trach site culture Status post bronchoscopy 09/03 cultures negative Blood culture from 08/26 no growth to date Sputum 09/05 no growth Influenza a and B 09/07 Bronchial wash negative FEN: Hypernatremia-resolved Quarter normal saline DCd Replace electrolytes as clinically indicated per ICU electrolyte protocol Monitor CMP Access Peripheral IV. Central line if indicated Prophylaxis -GI -lV pantoprazole while in p.o. DVT -SCD/heparin subcutaneous 5000 units 3 times a day. No signs of bleeding on MRI brain Patient now critically ill with worsening sepsis, trach site infection and new acute spinal cord injury and quadriplegia. MRI spine shows severe spinal cord stenosis, neurosurgery consulted, IV steroids increased, broad-spectrum antibiotics started. Prognosis for neuro recovery very poor per neurosurgery. Family updated by myself and neurosurgery yesterday CCT 35 MIN Discussed Condition With: Nick Victor and Deven
--- NOTE | 2017-09-17 09:06 | P.PNID ---
Subjective Remarks: Patient is a 77-year-old male, initially admitted to the hospital August 21 complaining of some right upper quadrant pain and some chest pain. There is mention that he has a chronic cough. He was not short of breath, no nausea or vomiting or diarrhea, and no fever and chills. Evaluation revealed multiple pulmonary masses, COPD, and bilateral pleural effusion. He underwent thoracentesis, and fluid cytology did not show any malignancy. He underwent lung biopsy and that also did not show any definite evidence of malignancy. On August 23 he had increasing shortness of breath, and was transferred to the ICU. He ended up getting intubated. Since then patient has been on the vent, and has had failure to wean. He underwent tracheostomy on September 08, and PEG placement on September 11. Patient has had multiple cultures done. All his blood cultures are negative. He had pleural fluid on August 25 and September 09 and they were negative. Sputum culture August 26, September 05, and September 07 were all showing normal respiratory tom. Patient's WBC has been elevated to more than 20,000. Today his white count went up to 27.1. He has had liquid stool, and on August 15 stool for C. difficile came back positive. Patient has been noted to have some foul smelling reddish gauge secretions from his tracheostomy. He has not been febrile. Infectious disease consultation has been requested to assist in evaluation and treatment with worsening sepsis, and trach site infection. Notes reviewed Temps ok On the vent Awake and focusing Neurosurgery notes reviewed C/W pending WBC decreasing Antibiotics: Zosyn Vanco IV Vanco po Diflucan Lines: No evidence of infection Past Medical History: Diabetes Gout Hypertension Prostate CA Allergies/Adverse Reactions: Allergies No Known Allergies Allergy (Unknown, Uncoded 08/20/17 17:57) Objective Vital Signs 09/16/17 11:09 09/16/17 12:00 09/16/17 15:58 Temperature 99.1 F Pulse Rate 78 Respiratory Rate 28 H 27 H 26 H Blood Pressure 136/65 Pulse Oximetry 98 97 94 L 09/16/17 16:00 09/16/17 19:28 09/16/17 20:00 Temperature 99.2 F 98.7 F Pulse Rate 82 94 H 94 H Respiratory Rate 28 H 24 24 Blood Pressure 138/68 98/69 L Pulse Oximetry 94 L 09/17/17 00:00 09/17/17 03:31 09/17/17 04:00 Temperature 98.9 F 98.0 F Pulse Rate 90 94 H 98 H Respiratory Rate 24 23 22 Blood Pressure 100/60 135/72 Pulse Oximetry 98 97 97 Intake & Output 09/16/17 09/17/17 09/17/17 18:59 06:59 18:59 Intake Total 1480.5 / 1480.5 902 / 902 Output Total 3250 / 3250 1025 / 1025 Balance -1769.5 / -1769.5 -123 / -123 Weight 71.9 kg Intake: IV 462.5 / 462.5 100 / 100 Zosyn 4.5 GM Premix 4.5 gm In 200 / 200 100 / 100 100 ml @ 200 mls/hr IV.SIG Q6H MICHELET Rx#:[id number] Vancomycin Inj 1,250 MG In NS 262.5 / 262.5 Inj 250 ML @ 250 mls/hr IV.SIG ONCE ONE Rx#:[id number] Tube Feeding 558 / 558 542 / 542 Tube Irrigant 60 / 60 60 / 60 Water Bolus Amount 400 / 400 200 / 200 Output: Urine 1450 / 1450 Stool 100 / 100 75 / 75 Urine Amount (Catheter) 1700 / 1700 950 / 950 Indwelling Urethral Catheter 1700 / 1700 950 / 950 Other: Date of Last Bowel Movement 09/16/17 09/16/17 09/16/17 16:55 Blood - Peripheral Aerobic Blood Culture - Pending 09/16/17 16:55 Blood - Peripheral Anaerobic Blood Culture - Pending 09/16/17 16:45 Blood - Peripheral Aerobic Blood Culture - Pending 09/16/17 16:45 Blood - Peripheral Anaerobic Blood Culture - Pending 09/16/17 09:30 Wound - Neck Gram Stain - Pending 09/16/17 09:30 Wound - Neck Wound Culture - Pending 09/15/17 22:30 Sputum - Endotracheal Gram Stain - Final 09/15/17 22:30 Sputum - Endotracheal Sputum Culture - Pending Lab - Hematology Results 09/16/17 09/17/17 04:10 04:00 WBC 27.1 H 19.0 H RBC 3.69 L 3.52 L Hgb 10.8 L 10.1 L Hct 33.1 L 31.6 L MCV 89.9 89.7 MCH 29.2 28.7 MCHC 32.5 32.0 RDW 14.8 15.0 Plt Count 373 308 MPV 8.1 7.8 Lab - Chemistry Results 09/15/17 09/15/17 09/16/17 12:47 17:15 04:10 Sodium 141 Potassium 5.2 H Chloride 101 Carbon Dioxide 32.3 H Anion Gap 8 BUN 59 H Creatinine 0.90 Estimated GFR 81 L POC Glucose 289 H 304 H Random Glucose 266 H Calcium 8.6 Total Bilirubin 0.6 AST 25 ALT 39 Alkaline Phosphatase 137 H Total Protein 7.3 Albumin 1.8 L 09/16/17 09/16/17 09/16/17 14:17 17:27 20:21 Sodium Potassium Chloride Carbon Dioxide Anion Gap BUN Creatinine Estimated GFR POC Glucose 283 H 271 H 216 H Random Glucose Calcium Total Bilirubin AST ALT Alkaline Phosphatase Total Protein Albumin 09/17/17 09/17/17 09/17/17 00:19 04:00 05:00 Sodium 143 Potassium 4.5 Chloride 100 Carbon Dioxide 35.9 H Anion Gap 7 BUN 57 H Creatinine 0.88 Estimated GFR 84 L POC Glucose 173 H 216 H Random Glucose 197 H Calcium 8.6 Total Bilirubin 0.5 AST 21 ALT 41 Alkaline Phosphatase 118 H Total Protein 7.0 Albumin 1.8 L 09/17/17 08:21 Sodium Potassium Chloride Carbon Dioxide Anion Gap BUN Creatinine Estimated GFR POC Glucose 174 H Random Glucose Calcium Total Bilirubin AST ALT Alkaline Phosphatase Total Protein Albumin Imaging: ITS Impressions Cervical Spine MRI 09/15/17 00:00 CONCLUSION: 1. There appears to be focal severe spinal canal stenosis at C4-5. There is increased signal within the body of the spinal cord at this level most likely representing some myelomalacia. 2. Moderate diffuse broad-based bulging at C3-4 with some mild increased signal in the spinal cord at this level. 3. Moderate spinal canal stenosis at C6-C7 4. Bilateral facet arthritis at multiple levels. 5. Extensive primary degenerative changes with disc degeneration and disc space narrowing throughout the entire cervical spine. Chest X-Ray 09/17/17 06:00 CONCLUSION: Improving but persistent interstitial infiltrate left midlung. Physical Exam: Physical Examination GENERAL: Patient is a well-nourished, well-developed male, awake and focusing , not in respiratory distress. SKIN: Warm and dry. No generalized rash, no ecchymoses and no evidence of embolic lesions. HEAD: Atraumatic. Normocephalic. No temporal wasting, or tenderness. EYES: [address] conjunctiva. No petechia or hemorrhage. Pupils equal, round and reactive to light. Extraocular movements full and intact. No scleral icterus. No injection or drainage. EARS, NOSE AND THROAT: Nose without bleeding or purulent nasal discharge. Dry oral mucosa. NECK: Tracheostomy site with mild erythema, has copious foul smelling discharge on the left side with reddish beige secretions. Supple CARDIOVASCULAR: Regular rate and rhythm. No murmurs, rubs or gallops heard RESPIRATORY: Coarse breath sounds equal bilaterally. No rales, wheezing or rhonchi ABDOMEN: Soft, non-tender, nondistended. Bowel sounds present and normoactive. No guarding. No rebound. No organomegaly. PEG site ok. EXTREMITIES: No clubbing, cyanosis. Has some nai pitting pedal edema. Well perfused and warm. NEUROLOGICAL: Awake, focusing PSYCHIATRIC: Unable to assess. LINE: No evidence of infection : Larson in place, urine looks clear Assessment and Plan - Plan IMPRESSION Sepsis, worsening - has worsening leukocytosis - ?HCAP - trach site infection - C diff colitis Trach site infection, proceduredone 09/08 C diff colitis Respiratory failure, S/P trach Leukocytosis, improving RECOMMENDATION Follow C/S Continue IV Vanco Continue Zosyn Continue Diflucan Continue po Vanco for C diff Will adjust Abx once C/S finalized Consider CT neck if not better Weaning per [facility] Follow CBC Monitor progress D/W Dr Mckinnon ([facility])
--- NOTE | 2017-09-17 09:39 | P.PNNEU ---
Subjective Subjective Comments: No acute events reported Not able to move UE or LE. MRI cervical spine showing severe stenosis in cervical spine with cord compression and cord edema. Dr Victor's consult appreciated. Active Medications: Active Medications Generic Name Dose Route Start Last Admin Trade Name Freq PRN Reason Stop Dose Admin Acetaminophen 650 mg 09/14/17 00:00 09/14/17 20:25 Tylenol Liq NG/OG 650 mg Q6H PRN Administration FEVER Al Hydroxide/Mg Hydroxide 30 ml 09/14/17 00:00 Milk Of Magnesia Liq PO Q12H PRN MILD CONSTIPATION Albuterol 2.5 mg 09/14/17 00:00 09/17/17 09:29 Albuterol Neb (Prn) NEB 2.5 mg Q2HR NEB PRN Administration DYSPNEA Artificial Tears 1 drop 09/14/17 06:00 09/17/17 05:19 Tears Naturale Opth Drops EACH EYE 1 drop Q8HR [facility] Administration Bisacodyl 10 mg 09/14/17 00:00 Dulcolax Supp RECTAL DAILY PRN SEVERE CONSTIPATION/IF NPO Budesonide 0.5 mg 09/14/17 08:00 09/17/17 09:29 Pulmocort Respule Neb NEB 0.5 mg Q12HR NEB [facility] Administration Chlorhexidine Gluconate 15 ml 09/14/17 08:00 09/16/17 21:01 Peridex 0.12% Oral Kit SWISH-SPIT 15 ml BID@0800,2000 [facility] Administration Chlorhexidine Gluconate 3 pack 09/14/17 04:00 09/17/17 04:40 Chlorhexidine 2% Cloth TOPICAL 3 pack DAILY@0400 [facility] Administration Chlorhexidine Gluconate 3 pack 09/14/17 09:00 Chlorhexidine 2% Cloth TOPICAL UNSCH PRN HYGIENIC CARE Protocol Clonidine HCl 0.1 mg 09/14/17 00:00 09/16/17 09:18 Catapres PO 0.1 mg Q6H PRN Administration SBP>160, DBP>90 Dextrose 50 ml 09/14/17 13:23 D50w Vial IV.PUSH UNSCH PRN PER HYPOGLYCEMIA PROTOCOL Dextrose 50 ml 09/16/17 09:14 D50w Vial IV.PUSH UNSCH PRN PER HYPOGLYCEMIA PROTOCOL Digoxin 0.125 mg 09/14/17 09:00 09/15/17 08:52 Lanoxin Liq PO 0.125 mg DAILY [facility] Administration Fluconazole 200 mg 09/16/17 14:30 09/16/17 14:30 Diflucan PO 200 mg DAILY [facility] Administration Furosemide 20 mg 09/14/17 09:00 09/16/17 09:19 Lasix Inj IV.PUSH 20 mg DAILY [facility] Administration Glucagon 1 mg 09/16/17 09:14 Glucagon Inj OTHER PRN PRN for Hypoglycemia Protocol Heparin Sodium (Porcine) 5,000 units 09/14/17 06:00 09/17/17 05:18 Heparin Inj SQ 5,000 units Q8HR [facility] Administration Hyoscyamine 0.25 mg 09/15/17 17:00 Levsin Inj IV.PUSH Q6H PRN INCREASED SECRETIONS Sodium Phosphate 30 mmol/ 260 mls @ 42 mls/hr 09/14/17 00:00 Sodium Chloride IV.SIG UNSCH PRN For Phosphorus < 2.5 mg/dL Potassium Chloride 20 meq in 100 mls @ 50 mls/hr 09/14/17 00:00 Kcl 20 Meq Premix Inj IV.SIG Q2H PRN For Potassium 3.3 - 3.5 mEq/L Potassium Chloride 40 meq in 100 mls @ 25 mls/hr 09/14/17 00:00 Kcl 40 Meq Premix Inj IV.SIG Q2H PRN For Potassium 2.8 - 3.2 mEq/L Magnesium Sulfate Inj 4 gm/ 100 mls @ 50 mls/hr 09/14/17 00:00 Sodium Chloride IV.SIG UNSCH PRN For Magnesium 0.9 - 1.1 mg/dL Magnesium Sulfate Inj 2 gm/ 100 mls @ 50 mls/hr 09/14/17 00:00 Sodium Chloride IV.SIG UNSCH PRN For Magnesium 1.2 - 1.6 mg/dL Potassium Phosphate 30 mmol/ 260 mls @ 42 mls/hr 09/14/17 00:00 Sodium Chloride IV.SIG UNSCH PRN SEE LABEL COMMENTS Piperacillin/Tazobactam/Dextrose 4.5 gm in 100 mls @ 200 mls/hr 09/16/17 10: 00 09/17/17 04:55 Zosyn 4.5 Gm Premix IV.SIG 200 mls/hr Q6H [facility] Administration Nicardipine HCl 25 mg/ Sodium 260 mls @ 52 mls/hr 09/14/17 09:00 Chloride IV.SIG TITRATE PRN BLOOD PRESSURE MANAGEMENT Pharmacy Profile Note 0 mls @ 0 mls/hr 09/16/17 13:00 Vancomycin Consult Pharmacy OTHER UNSCH [facility] As Directed Vancomycin HCl 1,000 mg/ 250 mls @ 250 mls/hr 09/17/17 11:00 Sodium Chloride IV.SIG Q24H [facility] Potassium Chloride 40 meq in 100 mls @ 25 mls/hr 09/14/17 09:00 Kcl 40 Meq Premix Inj IV.SIG UNSCH PRN POTASSIUM 3 TO 3.5 Acetaminophen 1,000 mg in 100 mls @ 400 mls/hr 09/14/17 00:00 Ofirmev Inj IV.SIG Q6H PRN FEVER Insulin Aspart 0 unit 09/16/17 12:00 09/17/17 05:18 Novolog Insulin Suppl Scale Inj SQ 10 unit Q4HR [facility] Administration Protocol Insulin Detemir 12 unit 09/16/17 09:16 09/16/17 21:49 Levemir Inj SQ 12 unit Q12HR [facility] Administration Labetalol HCl 10 mg 09/14/17 00:00 Trandate Inj IV.PUSH Q1H PRN SBP>160, DBP>90, HR>65 Labetalol HCl 10 mg 09/14/17 00:00 Trandate Inj IV.PUSH Q6H PRN TACHYCARDIA >100 BPM Lactulose 30 ml 09/14/17 09:00 09/16/17 21:47 Lactulose Liq PO 30 ml BID [facility] Administration Lansoprazole 30 mg 09/14/17 09:00 09/16/17 09:18 Prevacid Solutab NG/OG 30 mg DAILY [facility] Administration Magnesium Oxide 800 mg 09/14/17 00:00 Mag-Ox PO UNSCH PRN For Magnesium 1.2 - 1.6 mg/dL Methylprednisolone Sodium Succinate 250 mg 09/16/17 10:00 09/17/17 04:55 Solumedrol Inj IV.PUSH 250 mg Q6H [facility] Administration Metoclopramide HCl 5 mg 09/14/17 06:00 09/17/17 05:19 Reglan Inj IV.PUSH 5 mg Q8HR [facility] Administration Metoprolol Tartrate 25 mg 09/14/17 09:00 09/17/17 00:23 Lopressor PO Not Given Q8H [facility] Miscellaneous Information 1 each 09/14/17 09:00 09/15/17 22:14 Misc Nursing Information OTHER Not Given Q361D [facility] Miscellaneous Information 1 each 09/14/17 10:30 09/15/17 22:14 [facility] OTHER Not Given Q361D [facility] Miscellaneous Information 0 each 09/19/17 10:45 [facility] Ordered Lab Info OTHER 09/19/17 10:46 ONCE ONE Naloxone HCl 0.4 mg 09/14/17 00:00 Narcan Inj IV.PUSH UNSCH PRN SEE LABEL COMMENTS Ondansetron HCl 4 mg 09/14/17 09:00 09/17/17 03:40 Zofran Odt PO 4 mg Q6H [facility] Administration Pantoprazole Sodium 40 mg 09/14/17 09:00 09/16/17 09:18 Protonix Inj IV.PUSH 40 mg Q24H [facility] Administration Polyethylene Glycol 17 gm 09/14/17 09:00 09/16/17 21:49 Miralax PO 17 gm BID [facility] Administration Potassium Bicarb/Potassium Chloride 50 meq 09/14/17 00:00 K-Lyte PO UNSCH PRN For Potassium 3.3 - 3.5 mEq/L Potassium Phosphate 2,000 mg 09/14/17 00:00 K-Phos Original PO Q4H PRN Phosphorus Less Than 2.5 mg/dL Potassium Phosphate 2,000 mg 09/14/17 09:00 K-Phos Original PO PRN PRN SEE LABEL COMMENTS Senna/Docusate Sodium 1 tab 09/14/17 09:00 09/16/17 21:40 Bhumi-Colace PO Not Given BID [facility] Sennosides 17.2 mg 09/14/17 09:00 Senokot PO Q12H PRN MODERATE CONSTIPATION Sodium Chloride 0 ml 09/14/17 09:00 09/16/17 09:22 Ns Flush IV.FLUSH Not Given DAILY [facility] Protocol Sterile Water 0 ml 09/14/17 00:00 09/17/17 05:18 Free Water NG/OG 200 ml Q6H [facility] Administration Vancomycin HCl 250 mg 09/16/17 14:30 09/16/17 21:47 Vancomycin Po PO 250 mg QID [facility] Administration Whey 1 packet 09/14/17 09:00 09/16/17 17:49 Beneprotein Powder G-TUBE 1 packet TID [facility] Administration Allergies/Adverse Reactions: Allergies Allergy/AdvReac Type Severity Reaction Status Date / Time No Known Allergies Allergy Unknown Uncoded 08/20/17 17:57 Physical Exam Vital signs: Vital Signs 09/16/17 11:09 09/16/17 12:00 09/16/17 15:58 Temperature 99.1 F Pulse Rate 78 Respiratory Rate 28 H 27 H 26 H Blood Pressure 136/65 Pulse Oximetry 98 97 94 L 09/16/17 16:00 09/16/17 19:28 09/16/17 20:00 Temperature 99.2 F 98.7 F Pulse Rate 82 94 H 94 H Respiratory Rate 28 H 24 24 Blood Pressure 138/68 98/69 L Pulse Oximetry 94 L 09/17/17 00:00 09/17/17 03:31 09/17/17 04:00 Temperature 98.9 F 98.0 F Pulse Rate 90 94 H 98 H Respiratory Rate 24 23 22 Blood Pressure 100/60 135/72 Pulse Oximetry 98 97 97 Intake & Output 09/16/17 09/17/17 09/17/17 18:59 06:59 18:59 Intake Total 1480.5 / 1480.5 902 / 902 Output Total 3250 / 3250 1025 / 1025 Balance -1769.5 / -1769.5 -123 / -123 Weight 71.9 kg Intake: IV 462.5 / 462.5 100 / 100 Zosyn 4.5 GM Premix 4.5 gm In 200 / 200 100 / 100 100 ml @ 200 mls/hr IV.SIG Q6H [facility] Rx#:[id number] Vancomycin Inj 1,250 MG In NS 262.5 / 262.5 Inj 250 ML @ 250 mls/hr IV.SIG ONCE ONE Rx#:[id number] Tube Feeding 558 / 558 542 / 542 Tube Irrigant 60 / 60 60 / 60 Water Bolus Amount 400 / 400 200 / 200 Output: Urine 1450 / 1450 Stool 100 / 100 75 / 75 Urine Amount (Catheter) 1700 / 1700 950 / 950 Indwelling Urethral Catheter 1700 / 1700 950 / 950 Other: Date of Last Bowel Movement 09/16/17 09/16/17 - Routine HEENT Exam Comments: Pt is lethargic but arouses easily and follows commands CN--PERRL, EOM intact MOTOR----0/5 BUE and BLE. - Urinary Catheter Management Indwelling Urethral Catheter Cath placed during this visit: yes Reason for continuing: Other continuation reason Insertion date: 08/27/17 Insertion time: 17:00 Objective Laboratory Results - last 24 hr 09/16/17 09/16/17 09/16/17 11:25 14:17 17:27 WBC RBC Hgb Hct MCV MCH MCHC RDW Plt Count MPV Sodium Potassium Chloride Carbon Dioxide Anion Gap BUN Creatinine Estimated GFR POC Glucose 283 H 271 H Random Glucose Calcium Total Bilirubin AST ALT Alkaline Phosphatase Total Protein Albumin Urine Color Straw Urine Clarity Clear Urine pH 5.0 Ur Specific [place] 1.011 Urine Protein Negative Urine Glucose (UA) Negative Urine Ketones Negative Urine Occult Blood Negative Urine Nitrate Negative Urine Bilirubin Negative Urine Urobilinogen Less than 2 Ur Leukocyte Esterase Negative Urine RBC Less than 1 Urine WBC 1 Ur Squamous Epith Cells <1 Hyaline Casts 6 Urine Mucus Few H Micro UA Comment Cath-culture not ind Urine Culture Comments Cath-cult not ind Digoxin 09/16/17 09/17/17 09/17/17 20:21 00:19 04:00 WBC 19.0 H RBC 3.52 L Hgb 10.1 L Hct 31.6 L MCV 89.7 MCH 28.7 MCHC 32.0 RDW 15.0 Plt Count 308 MPV 7.8 Sodium Potassium Chloride Carbon Dioxide Anion Gap BUN Creatinine Estimated GFR POC Glucose 216 H 173 H Random Glucose Calcium Total Bilirubin AST ALT Alkaline Phosphatase Total Protein Albumin Urine Color Urine Clarity Urine pH Ur Specific [place] Urine Protein Urine Glucose (UA) Urine Ketones Urine Occult Blood Urine Nitrate Urine Bilirubin Urine Urobilinogen Ur Leukocyte Esterase Urine RBC Urine WBC Ur Squamous Epith Cells Hyaline Casts Urine Mucus Micro UA Comment Urine Culture Comments Digoxin 09/17/17 09/17/17 09/17/17 04:00 05:00 08:21 WBC RBC Hgb Hct MCV MCH MCHC RDW Plt Count MPV Sodium 143 Potassium 4.5 Chloride 100 Carbon Dioxide 35.9 H Anion Gap 7 BUN 57 H Creatinine 0.88 Estimated GFR 84 L POC Glucose 216 H 174 H Random Glucose 197 H Calcium 8.6 Total Bilirubin 0.5 AST 21 ALT 41 Alkaline Phosphatase 118 H Total Protein 7.0 Albumin 1.8 L Urine Color Urine Clarity Urine pH Ur Specific [place] Urine Protein Urine Glucose (UA) Urine Ketones Urine Occult Blood Urine Nitrate Urine Bilirubin Urine Urobilinogen Ur Leukocyte Esterase Urine RBC Urine WBC Ur Squamous Epith Cells Hyaline Casts Urine Mucus Micro UA Comment Urine Culture Comments Digoxin 1.1 Microbiology 09/15/17 22:30 Gram Stain - Final Sputum - Endotracheal Review/Management - Diagnosis (1) Cervical myelopathy Code(s): G95.9 - Disease of spinal cord, unspecified Status: Acute Current Visit: Yes - Review/Management Plan: I agree with Dr Chang impression. Prognosis is very poor given the degree of stenosis and cord edema continue solumedrol for 3-5 days then can start to taper.
[2017-09-17] MEDS: Pantoprazole Inj 40 MG Vial IV.PUSH SCH (09:56)
[2017-09-17] MEDS: Beneprotein Powder Packet G-TUBE SCH ×3 (10:00→17:16)
[2017-09-17] MEDS: Polyethylene Glycol 3350 17 GM Packet PO SCH (10:04)
[2017-09-17] MEDS: Insulin Detemir Inj 1,000 UNIT/10 ML Vial SQ SCH ×2 (10:04→22:07)
[2017-09-17] MEDS: Chlorhexidine 0.12% Oral Kit 15 ML UDC SWISH-SPIT SCH ×2 (10:04→22:22)
[2017-09-17] MEDS: Senna/Docusate Sodium 8.6/50 MG Tablet PO SCH ×2 (10:05→22:20)
--- NOTE | 2017-09-17 11:55 | P.PNNS ---
Subjective Interval history: Pt awake. Not verbalizing. Not following commands consistently tries to stick out tongue to command. <LulúMiller - Last Filed: 09/17/17 11:48> Physical Exam Vital signs: Vital Signs 09/16/17 12:00 09/16/17 15:58 09/16/17 16:00 Temperature 99.1 F 99.2 F Pulse Rate 78 82 Respiratory Rate 27 H 26 H 28 H Blood Pressure 136/65 138/68 Pulse Oximetry 97 94 L 09/16/17 19:28 09/16/17 20:00 09/17/17 00:00 Temperature 98.7 F 98.9 F Pulse Rate 94 H 94 H 90 Respiratory Rate 24 24 24 Blood Pressure 98/69 L 100/60 Pulse Oximetry 94 L 98 09/17/17 03:31 09/17/17 04:00 09/17/17 09:41 Temperature 98.0 F Pulse Rate 94 H 98 H Respiratory Rate 23 22 26 H Blood Pressure 135/72 Pulse Oximetry 97 97 100 Intake & Output 09/16/17 09/17/17 09/17/17 18:59 06:59 18:59 Intake Total 1480.5 / 1480.5 1002 / 1002 Output Total 3250 / 3250 1025 / 1025 Balance -1769.5 / -1769.5 -23 / -23 Weight 71.9 kg Intake: IV 462.5 / 462.5 200 / 200 Zosyn 4.5 GM Premix 4.5 gm In 200 / 200 200 / 200 100 ml @ 200 mls/hr IV.SIG Q6H [facility] Rx#:[id number] Vancomycin Inj 1,250 MG In NS 262.5 / 262.5 Inj 250 ML @ 250 mls/hr IV.SIG ONCE ONE Rx#:[id number] Tube Feeding 558 / 558 542 / 542 Tube Irrigant 60 / 60 60 / 60 Water Bolus Amount 400 / 400 200 / 200 Output: Urine 1450 / 1450 Stool 100 / 100 75 / 75 Urine Amount (Catheter) 1700 / 1700 950 / 950 Indwelling Urethral Catheter 1700 / 1700 950 / 950 Other: Date of Last Bowel Movement 09/16/17 09/16/17 - Constitutional thin, cachectic, chronically ill appearing - Routine HEENT Exam Head: Present: normocephalic Eye: Present: PERRL (Pupils 4 mm bilterally irregular shaped bilaterally.) ENT: Present: mucous membranes moist, oropharynx clear - Routine Neck Exam Present: trachea midline - Routine Respiratory Exam Present: patient mechanically ventilated (Trach in place.), rhonchi ( bilaterally.). Absent: respiratory distress - Routine Cardiovascular Exam Present: RRR, S1, S2. Absent: murmur - Routine Abdominal Exam Present: soft. Absent: tenderness, distended - Routine Extremities Exam Present: edema (bilateral hands.) - Routine Skin Exam Absent: cyanosis, erythema - Routine Neurological Exam Present: alert, motor deficit (quadriplegia.) - Detailed Neurological Exam: Coma Scale Eye Opening: Spontaneous Verbal Response: None Motor Response: Obey commands (Tries to follow by trying to stick out tongue. no movement in extremities to follow.) [place] Coma Scale Total: 11 - Routine Psychiatric Exam Present: unable to assess - Urinary Catheter Management Indwelling Urethral Catheter Cath placed during this visit: yes Reason for continuing: Other continuation reason Insertion date: 08/27/17 Insertion time: 17:00 <Miller Chino - Last Filed: 09/17/17 11:48> Vital signs: Vital Signs 09/16/17 19:28 09/16/17 20:00 09/17/17 00:00 Temperature 98.7 F 98.9 F Pulse Rate 94 H 94 H 90 Respiratory Rate 24 24 24 Blood Pressure 98/69 L 100/60 Pulse Oximetry 94 L 98 09/17/17 03:31 09/17/17 04:00 09/17/17 08:00 Temperature 98.0 F 98.1 F Pulse Rate 94 H 98 H 96 H Respiratory Rate 23 22 26 H Blood Pressure 135/72 119/63 Pulse Oximetry 97 97 96 09/17/17 09:41 09/17/17 12:00 Temperature 98.4 F Pulse Rate 80 Respiratory Rate 26 H 31 H Blood Pressure 138/92 H Pulse Oximetry 100 96 Intake & Output 09/16/17 09/17/17 09/17/17 18:59 06:59 18:59 Intake Total 1480.5 / 1480.5 1002 / 1002 Output Total 3250 / 3250 1025 / 1025 Balance -1769.5 / -1769.5 -23 / -23 Weight 71.9 kg Intake: IV 462.5 / 462.5 200 / 200 Zosyn 4.5 GM Premix 4.5 gm In 200 / 200 200 / 200 100 ml @ 200 mls/hr IV.SIG Q6H [facility] Rx#:[id number] Vancomycin Inj 1,250 MG In NS 262.5 / 262.5 Inj 250 ML @ 250 mls/hr IV.SIG ONCE ONE Rx#:[id number] Tube Feeding 558 / 558 542 / 542 Tube Irrigant 60 / 60 60 / 60 Water Bolus Amount 400 / 400 200 / 200 Output: Urine 1450 / 1450 Stool 100 / 100 75 / 75 Urine Amount (Catheter) 1700 / 1700 950 / 950 Indwelling Urethral Catheter 1700 / 1700 950 / 950 Other: Date of Last Bowel Movement 09/16/17 09/16/17 09/16/17 - Urinary Catheter Management Indwelling Urethral Catheter Cath placed during this visit: no <Anuj Victor - Last Filed: 09/17/17 16:50> Assessment and Plan - Assessment (1) Cervical myelopathy Code(s): G95.9 - Disease of spinal cord, unspecified Status: Acute - Plan Impression: 1. 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 2. Sepsis 3. Respiratory failure, tracheostomy in place. Now on CPAP Plan: This patient remains critically ill, with severe spinal cord injury and deficit. Prognosis for any reasonable recovery of extremity motor function is extremely poor. It would be appropriate to get palliative care involved to assist with family decision making. Continue with supportive care. <Miller Chino - Last Filed: 09/17/17 11:48> - Attending Attestation The exam, history, and the medical decision-making described in the above note were completed with the assistance of the mid-level provider. I reviewed and agree with the findings presented. I attest that I had a [id number] encounter with the patient on the same day, and personally performed and documented my assessment and findings in the medical record. I spoke with the patient's son in the intensive care unit today. I reviewed the recent MRI of the cervical spine from 09/15/2017 images with him and explained the severity of the spinal cord compression and injury. On examination today, the patient remains awake and relatively alert. He does follow simple commands for the family. He is able to move his left wrist flexors and extensors with mild left hand grasp mostly 2/5, but no other movement in the upper or lower extremities. The patient's son states that the patient did move his left toes slightly for him earlier today. I advised the family regarding the severity of the spinal cord injury and the very low chance of any improvement with surgical intervention. It is extremely unlikely that he would ever regain useful motor function in the extremities even with surgical intervention. The risks of surgery has been discussed. There is a concern regarding prolonged prone position anesthesia in this very debilitated patient. I advised him that I will discuss this further with eligibility supervisor. The patient is being followed by palliative care. The patient's son is comfortable waiting for further input from his other physicians before making any decision regarding intervention. <Anuj Victor - Last Filed: 09/17/17 16:50>
[2017-09-17] MEDS: Vancomycin Inj 1,000 MG in Sodium Chlor 0.9% Inj 250 ML IV.SIG SCH (12:42)
[2017-09-18] MEDS: Metoprolol Tartrate 25 MG Tablet PO SCH ×3 (00:11→16:46)
[2017-09-18] MEDS: Oral Hygiene Kit OROPHARYNG SCH ×4 (00:12→16:45)
[2017-09-18] MEDS: Polyethylene Glycol 3350 17 GM Packet PO SCH ×3 (00:13→21:29)
[2017-09-18] MEDS: Insulin NovoLOG Aspart Correctional Sugar Inj SQ SCH ×6 (00:41→21:27)
[2017-09-18] MEDS: Piperacil/Tazo 4.5 GM Premix 4.5 GM/100 ML BAG IV.SIG SCH ×4 (03:47→21:26)
[2017-09-18] MEDS: Chlorhexidine Gluconate 2% 1 Pack (2 Cloths) TOPICAL SCH (03:48)
[2017-09-18] MEDS: MethylPREDNISolone Sod Succinate Inj 40 MG/ML Vial IV.PUSH SCH ×4 (03:48→21:27)
[2017-09-18] MEDS: Heparin - SQ 10,000 UNITS/ML Vial SQ SCH ×3 (08:04→21:30)
[2017-09-18] MEDS: Artificial Tears Opth Drops 15 ML Bottle EACH EYE SCH ×3 (08:05→21:30)
--- NOTE | 2017-09-18 08:38 | P.PNCC ---
Subjective Subjective Remarks/Hospital Course: This is a 77-year-old [place] male/Mandarin speaking only. Date of admission 08/21/2017. Date of consultation 08/23/2017. Past medical history is documented as hypertension, gout and diabetes mellitus. He is on no home medications. He does have remote history of tuberculosis 10 years ago. He quit tobacco use 20 years ago. He presented to [facility] on 08/21/2017 with a 3-4 days of intermittent pain in this region that acutely acutely worsened on 08/20 . They state the pain is in the right upper quadrant and radiates to the upper thorax and around his back. Hospital workup included a CT pulmonary angiogram which revealed bilateral emphysema. Multiple bilateral pulmonary nodules present with the largest in the right lung measuring 2.8 cm and the largest in the left lung measuring 2.6 cm. Severe compressive atelectasis in the right lower lobe. Moderate-sized pulmonary effusion. Pleural thickening in the anterior inferior hemothorax. Right paratracheal lymph node 15 mm. 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 No lytic bone lesions. Also noted significant coronary artery and aortic atherosclerotic calcifications. Patient was evaluated by hematology. Recommended lung biopsy when stable. She has become increasingly short of breath and was transferred from a [facility] to [facility] at 70%. Patient became less responsive and we were consulted. Patient required intubation/central line placement is currently having a right pigtail catheter placed to remove fluid from right lung. 08/24: hypotensive this AM requiring levophed at 8 mcg/min. drained 600cc of serosanguinous fluid out of chest tube. responded successfully to straight-leg challenge. intubated, sedated. remains very critically ill. 08/25: Afebrile. Off all antihypertensives and vasopressin. Currently normal saline at 100 cc an hour. On propofol and fentanyl drips. 08/26: Afebrile. No tonsillar creatinine currently at 20 cc an hour. Remains on increased propofol drip at 40 mcg/kg/min secondary to severe agitation overnight and on attempted spontaneous breathing trials. Will try dexmedetomidine attempt to wean today. 08/27: Worsening lung infiltrates associated with hydration. Afebrile. Known diastolic dysfunction. He appears to be exquisitely sensitive to fluid balance. Presently converting to Precedex and will try spontaneous breathing trials. 08/28: Continued worsening bilateral lung infiltrates. IV fluid has been stopped yesterday, will add additional diuretics. Diffusion gradient worsened, unable to wean from ventilator. 08/29: Mild improvement in lung infiltrates after diuresis without harming renal function. Remains ventilator dependent. Biopsy yesterday, results pending. 08/30: Worsening gas exchange with deteriorating diffusion capacity and requirements for increased inspired oxygen concentration. This all despite 2 L diuresis. Await pathology results. 08/31: Lung infiltrates resolving with diuresis. Continues to behave like diastolic heart failure. Contraction alkalosis is developing will add a carbonic anhydrase inhibitor for a couple of days. T-max 100.8 but for the most part he has been afebrile. Lung mass does appear to be a malignancy. Agree with attempt to rebiopsy at some point. We will continue to diuresis until his kidneys squeak. At 7-10 days of antibiotics it may be best to stop treatment and reculture for fevers. I will defer to the pulmonary service. 09/01: remains intubated and sedated. continues to fail any weaning attempts. consulted palliative to assist in goals of care: may need tracheostomy for further aggressive care. 09/02: palliative meeting with family again today. no improvements. it has been greater than 10 days of full empiric antibiotics: will discontinue and re- culture for fever. 09/03: chest tube on water seal with minimal output. cxr unchanged. CT removed today on my eval. no other changes or improvements. unlikely to have favorable outcome. quite hypercarbic despite full vent support: will make changes to ventilation to assist with hypercarbic. 09/04: Remains sedated, orally intubated on mechanical ventilation. 09/05: Remains sedated, orally intubated on mechanical ventilation. Failed CPAP trials yesterday. 09/06: Sedated, arousable, orally intubated on mechanical ventilation. Failed CPAP trials yesterday. Family wishes to continue aggressive care and desire trach and PEG. 09/07: T-max 100.3. One bowel movement yesterday. Failed CPAP trials yesterday. OG tube plugged overnight and able to place new feeding tube at the present time. We will switch all medications to IV at the present time including amiodarone drip at 0.5 mg/min. Check digoxin level prior to resuming IV. 09/08: T-max 99.2. Currently afebrile. One bowel movement overnight. Plan for percutaneous tracheostomy today. GI consult for PEG placement. CT chest revealed small bilateral pleural effusions. Persistent right middle lobe mass which we will consult IR again for rebiopsy. Will ask pulmonary to see again 09/09: Remains on full vent support more critical today increasing oxygen requirement FiO2 at 65 of have increase PEEP to 10 to attempt wean oxygen. Air entry markedly diminished bilaterally. Chest x-ray shows bilateral prominent interstitial infiltrates. Fluid up by approximately 10 kg. I will discontinue half-normal saline. Lasix 40 mg IV 1 09/10: Patient remains critical showing agonal breathing on the ventilator. Bilateral coarse breath sounds. Chest x-ray shows bilateral patchy infiltrates improved left effusion after thoracentesis and removal of 1 L of fluid. However FiO2 requirement remains high at 65%. UO 1.5L in 24 hours. Lab work pending. IV steroids started for probable COPD exacerbation given history of smoking 09/11: Remains critical but slightly more stable. Breathing pattern has improved and oxygenation has improved after starting IV steroids for COPD exacerbation and thoracentesis on 09/09/2017. Currently FiO2 down to 50%, PEEP at 10. We will further wean. Sodium increased to 151 start quarter normal saline, increase Lasix. Family wished to proceed with full code. PEG today 09/12: Remains intubated sedated with propofol. Urine output 1.8 L. BUN/ creatinine slightly increased today 72/1.34. Will reduce Lasix dose also reduce Solu-Medrol. Vent dyssynchrony has improved but FiO2 remains high at 55% 09/13: Off all sedation for 24 hours. Apparently patient notes has had one family is at bedside asking questions. BUN/creatinine slightly improved 71/ 1.14 from 72/1.34. WBC count slightly improved to 20.7. FiO2 at 45% chest x- ray shows some interval improvement. Also Na improved to 147 09/14: Remains intubated off sedation. Slightly tachypneic on pressure support . Urine output approximately 1500 mL in 24 hours 09/15: Patient clearly more awake today seems to understand some of the commands. Concern about quadriparesis patient is not able to withdrawal to pain 4, even though it appears he does feel the pain. MRI of the C-spine ordered. Neurology consulted. Otherwise BUN/creatinine slightly improved 09/16: Patient remains quadriparetic, slight movement of the left upper extremity. MRI of the C-spine shows focal severe spinal canal stenosis at C4-5 , with increased signal within the body of the spinal cord at this level most likely representing some myelomalacia. Moderate diffuse broad-based bulging at C3-4 with some mild increased signal in the spinal cord at this level. Moderate spinal canal stenosis at C6-C7. Also there is evidence of tracheostomy site infection. Explained MRI findings to son and patient's using electronic play writer. Discussed with Dr. Carvalho. Increase Solu-Medrol to 250 mg IV every 6 hours. Consult neurosurgery 09/17: Remains septic, remains quadriplegic. Slight movements of the left upper extremity noted. C. difficile positive p.o. vancomycin added by ID yesterday. Appreciate input from Dr. Victor. Patient hs severe upper cervical stenosis with myelopathy and resultant SCI/severe quadriplegia of the upper and lower extremities. Prognosis very poor per neurosurgery SUBJECTIVE: 09/18: Afebrile. Tube feeds are at goal. No change in neurological status. Left upper extremity movement only. Objective Vital Signs / I&O: Vital Signs 09/17/17 09:41 09/17/17 12:00 09/17/17 16:00 Temperature 98.4 F 98.4 F Pulse Rate 80 90 Respiratory Rate 26 H 31 H 23 Blood Pressure 138/92 H 149/74 H Pulse Oximetry 100 96 09/17/17 16:55 09/17/17 20:00 09/17/17 20:02 Temperature 98.8 F Pulse Rate 88 82 Respiratory Rate 27 H 20 29 H Blood Pressure 130/68 Pulse Oximetry 97 09/17/17 21:24 09/18/17 00:31 09/18/17 04:14 Temperature Pulse Rate Respiratory Rate 21 21 23 Blood Pressure Pulse Oximetry 96 98 96 Intake & Output 09/17/17 09/18/17 09/18/17 18:59 06:59 18:59 Intake Total 1344 / 1344 1250 / 1250 Output Total 2250 / 2250 300 / 300 Balance -906 / -906 950 / 950 Weight 73.7 kg Intake: IV 200 / 200 100 / 100 Zosyn 4.5 GM Premix 4.5 gm In 200 / 200 100 / 100 100 ml @ 200 mls/hr IV.SIG Q6H [facility] Rx#:[id number] Tube Feeding 644 / 644 550 / 550 Tube Irrigant 100 / 100 Water Bolus Amount 400 / 400 600 / 600 Output: Urine 1250 / 1250 Stool 50 / 50 300 / 300 Urine Amount (Catheter) 950 / 950 Indwelling Urethral Catheter 950 / 950 Other: Date of Last Bowel Movement 09/16/17 09/17/17 Result Diagrams: 09/17/17 04:00 09/17/17 04:00 Other Results: Microbiology 09/16/17 09:30 Wound - Neck Gram Stain - Final 09/16/17 09:30 Wound - Neck Wound Culture - Preliminary Heavy growth normal skin tom at 24 hours 09/15/17 22:30 Sputum - Endotracheal Gram Stain - Final 09/15/17 22:30 Sputum - Endotracheal Sputum Culture - Preliminary Heavy growth normal respiratory tom at 24 hours 09/16/17 16:55 Blood - Peripheral Aerobic Blood Culture - Preliminary No growth in 1 day 09/16/17 16:55 Blood - Peripheral Anaerobic Blood Culture - Preliminary No growth in 1 day 09/16/17 16:45 Blood - Peripheral Aerobic Blood Culture - Preliminary No growth in 1 day 09/16/17 16:45 Blood - Peripheral Anaerobic Blood Culture - Preliminary No growth in 1 day Imaging: ITS Impressions Cervical Spine MRI 09/15/17 00:00 CONCLUSION: 1. There appears to be focal severe spinal canal stenosis at C4-5. There is increased signal within the body of the spinal cord at this level most likely representing some myelomalacia. 2. Moderate diffuse broad-based bulging at C3-4 with some mild increased signal in the spinal cord at this level. 3. Moderate spinal canal stenosis at C6-C7 4. Bilateral facet arthritis at multiple levels. 5. Extensive primary degenerative changes with disc degeneration and disc space narrowing throughout the entire cervical spine. Chest X-Ray 09/16/17 06:00 CONCLUSION: Increasing partially consolidated infiltrates left midlung. Chest X-Ray 09/17/17 06:00 CONCLUSION: Improving but persistent interstitial infiltrate left midlung. Objective Remarks: GENERAL: 77-year-old male currently ventilated via trach, arousable but not able to move right upper/bilateral lower extremity's. Slight movement left upper extremity SKIN: Warm and dry. No rash HEAD: Atraumatic. Normocephalic. EYES: Pupils equal and round about 2 mm bilaterally reactive. No scleral icterus. No injection or drainage. ENT: No nasal bleeding or discharge. Mucous membranes dry. NECK: Trachea midline. Trach site erythematous infected appearing with foul smelling discharge CARDIOVASCULAR: Heart rate well controlled now. S1, S2 no S4. Without murmur. No JVD LUNGS: Coarse rhonchorous breath sounds appreciated bilaterally. Positive end expiratory wheeze. GASTROINTESTINAL: Abdomen soft, non-tender, nondistended. No guarding. MUSCULOSKELETAL: Extremities without significant peripheral edema. No obvious deformities. NEUROLOGICAL: Off all sedation. Eyes spontaneously open, appears to understand verbal commands, moves his head side to side. Able to extend left wrist strength approximately 2 out of 5. Absent reflexes x4. No withdrawal of extremities 4. Sensation appears somewhat preserved Assessment and Plan - Assessment and Plan Plan: A/P Assessment and Plan Neuro/Psych: Acute toxic metabolic encephalopathy Quadriplegia Severe cervical spinal cord stenosis, with acute spinal cord injury MRI C-spine 09/15: There appears to be focal severe spinal canal stenosis at C4- 5. There is increased signal within the body of the spinal cord at this level most likely representing some myelomalacia. Moderate diffuse broad-based bulging at C3-4 with some mild increased signal in the spinal cord at this level. Moderate spinal canal stenosis at C6-C7 Bilateral facet arthritis at multiple levels. Extensive primary degenerative changes with disc degeneration and disc space narrowing throughout the entire cervical spine. Severe quadriplegia of the upper and lower extremities with some preserved residual sensory function. Neurosurgery Dr. Victor. Poor chance of neurological recovery for him Neurology Dr. Carvalho, Per his recommendations increased methylprednisolone succinate to 250 mg IV every 6 hours 09/16/[address] 08/23: 2 questionable tiny focal hemorrhages. MRI of brain 08/26 chronic small vessel ischemic and atrophic changes CT brain 09/05 revealed bilateral maxillary sinusitis. No other acute finding EEG 09/03 revealed severe encephalopathy. No epileptiform activity Acetaminophen 650 mg by tube every 6 hours as needed fever versus. PT/OT CV: Uncontrolled hypertension septic shock- resolved Atherosclerotic coronary artery disease Atrial fibrillation Elevated troponin downward trend Fluid overload Continue IV furosemide 20 mg IV daily Amiodarone Discontinued 09/07 secondary to bradycardia and pauses Continue metoprolol 25 mg p.o. q8h Continue digoxin. 1.1 (Home medication is NITRENDIPINE 10 mg by mouth daily) Currently off all vasopressors, hypertensive Resp: Acute hypoxic hypercapnic respiratory failure COPD with exacerbation/Emphysema Trach site infection Bilateral pleural effusion/status post chest tube right-sided transudative in nature. Chest tube removed 09/04 Multiple bilateral pulmonary masses vs infiltrate, RML mass vs consolidation Pulmonary edema PRVC 16550/1.03/24/54 Ventilator bundle Continue IV methylprednisolone succinate at increased dose as above for acute spinal cord injury, continue inhaled budesonide 0.5/2 1 inhalation twice daily Albuterol/ipratropium aerosols every 4 hours with albuterol aerosols every 2 hours as needed dyspnea CT pulmonary angiogram revealed 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 Right middle lobe 2.7 x 2.2 x 7's. Spiculated. Left lingula is 3.4 x 3.20 cm. Underlying pronounced emphysematous type changes throughout lung larios. Right pleural effusion. CT thorax 09/08 revealed multiple areas of consolidation bilaterally. Prior granulomatous disease. Focal consolidation or mass in the right middle lobe that appears unchanged. Lung mass biopsied on August 28 -results - CHRONIC INFLAMMATORY AND REACTIVE FIBROBLASTIC TISSUE CONTAINING ENTRAPPED BENIGN EPITHELIUM reconsult IR 09/08 for repeat biopsy Followed by Dr. Hardy/pulmonology. Reconsulted 09/08, recommended repeat CT in 4 weeks. Hold off the IR guided biopsy time due to unstable respiratory status, neuro status s/p percutaneous tracheostomy 09/08 (Michellea/Michael). Piperacillin/tazobactam and vancomycin for trach site infection. May remove trach sutures Status post thoracentesis left side 09/09 with 1 L fluid removed. No evidence of infection GI: Hypoalbuminemia C. difficile colitis s/p PEG 09/11. Tolerating tube feeds with Glucerna 1.5 at 55 cc an hour, free water flushes today Lansoprazole for GI prophylaxis Lactulose 30 cc twice daily for bowel regimen/hyperammonia P.o. vancomycin for C. difficile : Urinary retention, possible urinary stricture Acute kidney injury Maintain Larson catheter. Monitor urine output, Accurate I's and O's significant difficulty due to obstruction which may be urethral stricture which prevented serial i/o. replaced Larson catheter. Avoid nephrotoxic drugs Endo: Diabetes mellitus Hyperglycemia History of gout Sliding scale insulin with NovoLog high regimen to maintain euglycemia Currently on insulin detemir 15 units subcu twice daily Holding home medications of allopurinol 300 mg daily and colchicine 0.6 mg as needed Holding home medications of metformin 500 mg twice daily Heme: Leukocytosis Normocytic anemia Monitor CBC daily. Follow trends Coags within normal limits ID: Severe sepsis Trach site infection Healthcare associated pneumonia C. difficile colitis Appreciate ID input. Continue IV vancomycin, IV Pipracil/to the back. Continue fluconazole 200 mg daily and p.o. vancomycin 250 4 times daily Status post bronchoscopy 09/03 cultures negative Blood culture from 08/26 no growth to date Sputum 09/05 no growth Influenza a and B negative 09/07 Bronchial wash negative FEN: Hypernatremia-resolved Quarter normal saline DCd Replace electrolytes as clinically indicated per ICU electrolyte protocol Monitor CMP MSK: PT evaluate and treat Access Peripheral IV. Central line if indicated Prophylaxis -GI -lansoprazole.. DVT -SCD/heparin subcutaneous 5000 units 3 times a day. No signs of bleeding on MRI brain Level 2 follow-up
--- NOTE | 2017-09-18 09:48 | P.PNNS ---
Subjective Interval history: 09/16: 77-year-old male admitted on August 21, 2017 with initial complaint of chest pain and right upper quadrant abdominal pain. His initial evaluation revealed multiple pulmonary lesions with pleural effusion. However cytology from thoracentesis and lung biopsy were negative for malignancy. He initially required a tracheostomy placement. He has been on ventilatory support, with sedation recently weaned over the past few days. There was noted within the past day or 2 that he has not been moving his extremities, and an MRI of the cervical spine was subsequently obtained on 09/15/2017. This has revealed severe cervical stenosis with significant abnormal signal intensity within the cord. Review of his records indicates the patient to be moving all extremities during the first week or so of his hospitalization, although it is difficult to determine the grade of his motor function, with the patient very ill and apparently generally weak upon his initial presentation. Physical therapy notes reviewed, however therapy has not been able to consistently work with the patient due to his pulmonary problems and subsequent intubation and sedation. 06/18: Pt awake. Not verbalizing. Not following commands consistently tries to stick out tongue to command. 09/18: The patient is awake in bed. He is trached and on CPAP/PSV settings. He does look at this practitioner and tracks. He did not follow any commands. There was a trace of left foot movement to noxious stimulation. He did have facial grimacing also to noxious stimulation. Nursing reports that he did stick out his tongue after she demonstrated it. She also says that the patient squeezed with the left hand once but did not repeat it. <Roc Castillo E - Last Filed: 09/18/17 10:00> Physical Exam Vital signs: Vital Signs 09/17/17 12:00 09/17/17 16:00 09/17/17 16:55 Temperature 98.4 F 98.4 F Pulse Rate 80 90 Respiratory Rate 31 H 23 27 H Blood Pressure 138/92 H 149/74 H Pulse Oximetry 96 97 09/17/17 20:00 09/17/17 20:02 09/17/17 21:24 Temperature 98.8 F Pulse Rate 88 82 Respiratory Rate 20 29 H 21 Blood Pressure 130/68 Pulse Oximetry 96 09/18/17 00:31 09/18/17 04:14 09/18/17 09:13 Temperature Pulse Rate Respiratory Rate 21 23 28 H Blood Pressure Pulse Oximetry 98 96 99 Intake & Output 09/17/17 09/18/17 09/18/17 18:59 06:59 18:59 Intake Total 1344 / 1344 1250 / 1250 Output Total 2250 / 2250 300 / 300 Balance -906 / -906 950 / 950 Weight 73.7 kg Intake: IV 200 / 200 100 / 100 Zosyn 4.5 GM Premix 4.5 gm In 200 / 200 100 / 100 100 ml @ 200 mls/hr IV.SIG Q6H [facility] Rx#:[id number] Tube Feeding 644 / 644 550 / 550 Tube Irrigant 100 / 100 Water Bolus Amount 400 / 400 600 / 600 Output: Urine 1250 / 1250 Stool 50 / 50 300 / 300 Urine Amount (Catheter) 950 / 950 Indwelling Urethral Catheter 950 / 950 Other: Date of Last Bowel Movement 09/16/17 09/17/17 Narrative: GENERAL: Awake & alert. Trached and on CPAP/PSV settings. No apparent distress. HEENT: Normocephalic, atraumatic. Pupils 3 mm irregular & reactive, does track. MUSCULOSKELETAL: No evident clubbing or deformity. Dependent edema to all extremities. Trace left foot response to noxious stimulation. NEUROLOGICAL: Awake. Trached, nonverbal. Pupils 3 mm irregular & reactive, does track. Did not follow any commands. Trace left foot movement to local noxious stimulation. Facial grimacing w/local noxious stimulation to extremities. - Urinary Catheter Management Indwelling Urethral Catheter Cath placed during this visit: yes Reason for continuing: Terminally ill/Comfort care Insertion date: 08/27/17 Insertion time: 17:00 <Roc Castillo E - Last Filed: 09/18/17 10:00> Vital signs: Vital Signs 09/17/17 20:00 09/17/17 20:02 09/17/17 21:24 Temperature 98.8 F Pulse Rate 88 82 Respiratory Rate 20 29 H 21 Blood Pressure 130/68 Pulse Oximetry 96 09/18/17 00:31 09/18/17 04:14 09/18/17 08:00 Temperature 99.0 F Pulse Rate 95 H Respiratory Rate 21 23 21 Blood Pressure 140/72 Pulse Oximetry 98 96 98 09/18/17 09:13 09/18/17 12:00 09/18/17 16:00 Temperature 99.0 F 97.6 F Pulse Rate 75 75 Respiratory Rate 28 H 23 20 Blood Pressure 142/78 H 147/78 H Pulse Oximetry 99 98 97 09/18/17 18:07 09/18/17 18:08 Temperature Pulse Rate 71 Respiratory Rate 20 21 Blood Pressure Pulse Oximetry 97 Intake & Output 09/18/17 09/18/17 09/19/17 06:59 18:59 06:59 Intake Total 1350 / 1350 1110 / 1110 Output Total 300 / 300 1100 / 1100 Balance 1050 / 1050 10 / 10 Weight 73.7 kg Intake: IV 200 / 200 100 / 100 Zosyn 4.5 GM Premix 4.5 gm In 200 / 200 100 / 100 100 ml @ 200 mls/hr IV.SIG Q6H [facility] Rx#:[id number] Tube Feeding 550 / 550 610 / 610 Water Bolus Amount 600 / 600 400 / 400 Output: Urine 1100 / 1100 Stool 300 / 300 Other: Date of Last Bowel Movement 09/17/17 09/18/17 - Urinary Catheter Management Indwelling Urethral Catheter Cath placed during this visit: no <Anuj Victor - Last Filed: 09/18/17 19:04> Assessment and Plan - Assessment (1) Cervical myelopathy Code(s): G95.9 - Disease of spinal cord, unspecified Status: Acute - Plan Impression: 1. 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 2. Sepsis 3. Respiratory failure, tracheostomy in place. Now on CPAP 09/16: This patient remains critically ill, with severe spinal cord injury and deficit. Prognosis for any reasonable recovery of extremity motor function is extremely poor. It would be appropriate to get palliative care involved to assist with family decision making. - Dr Victor Patient remains critical. Not following any commands. Trace left foot movement to noxious stimulation. Plan: At this time neurosurgical intervention is not recommended. It is felt that it would be "extremely unlikely that he would ever regain useful motor function in the extremities even with surgical intervention. The risks of surgery has been discussed. There is a concern regarding prolonged prone position anesthesia in this very debilitated patient." (Dr Victor at 1650) Recommend Palliative Care consult. <Roc Castillo - Last Filed: 09/18/17 10:00> - Plan The exam, history, and the medical decision-making described in the above note were completed with the assistance of the mid-level provider. I reviewed and agree with the findings presented. I attest that I had a [id number] encounter with the patient on the same day, and personally performed and documented my assessment and findings in the medical record. The patient remains relatively alert today. He will follow a few simple commands. He will stick out his tongue occasionally when his asks him to. He tracks briefly from side to side in response to voice. He has a very mild left hand grasp and will move his left toes 1-2/5 to command. He has had infrequent mild grasp in the right hand. The patient was discussed with die polisher today. It is advised that the patient appears reasonably stable to proceed with surgical intervention in prone position. Discussed with nursing staff. The family has continued to request aggressive treatment, with all interventional modalities possible to optimize his chance for improvement. Although the patient appears to have sustained a severe spinal cord lesion with severe myelopathy, he is exhibiting some mild but steady improvement in motor function over the past couple of days. At the family's request, we will proceed with surgical intervention. At C3-5 laminoplasty is recommended. The procedure has been previously discussed with the patient's son along with risks and possible complications including the risk of anesthesia and further spinal cord injury, infection and wound healing issues. <Anuj Victor - Last Filed: 09/18/17 19:04>
[2017-09-18] MEDS: Beneprotein Powder Packet G-TUBE SCH ×3 (09:53→17:15)
[2017-09-18] MEDS: Chlorhexidine 0.12% Oral Kit 15 ML UDC SWISH-SPIT SCH ×2 (09:53→21:29)
[2017-09-18] MEDS: Insulin Detemir Inj 1,000 UNIT/10 ML Vial SQ SCH ×2 (09:55→21:29)
[2017-09-18] MEDS: Vancomycin Inj 1,000 MG in Sodium Chlor 0.9% Inj 250 ML IV.SIG SCH (11:00)
[2017-09-18 13:07] LABS: Hematocrit 32.4 % (39.0-51.0); Hemoglobin 10.4 gm/dL (13.0-17.0); Mean Corpuscular HGB Conc 32.1 % (32.0-36.0); Mean Corpuscular Volume 90.2 fL (80.0-100.0); Mean Platelet Volume 7.9 fL (7.0-11.0); Platelet Count 305 th/mm3 (150-450); Red Cell Distribution Width 15.5 % (11.6-17.2)
[2017-09-18 13:47] LABS: Alanine Aminotransferase 39 U/L (12-78); Albumin 1.9 g/dL (3.4-5.0); Anion Gap 7 meq/L (5-15); Aspartate Aminotransferase 17 U/L (15-37); Blood Urea Nitrogen 60 mg/dL (7-18); Calcium 8.3 mg/dL (8.5-10.1); Carbon Dioxide 39.3 meq/L (21.0-32.0); Chloride 100 meq/L (98-107); Glomerular Filtration Rate 85 mL/min (>89); Glucose,Random 156 mg/dL (74-106); Potassium 3.6 meq/L (3.5-5.1); Sodium 146 meq/L (136-145)
[2017-09-18 14:37] LABS: Alkaline Phosphatase 116 U/L (45-117); Digoxin 0.8 ng/mL (0.8-2.0); Total Protein 6.9 g/dL (6.4-8.2)
[2017-09-19] MEDS: Oral Hygiene Kit OROPHARYNG SCH ×4 (00:16→16:22)
[2017-09-19] MEDS: Insulin NovoLOG Aspart Correctional Sugar Inj SQ SCH ×5 (00:20→18:20)
[2017-09-19] MEDS: Metoprolol Tartrate 25 MG Tablet PO SCH ×3 (00:21→18:21)
[2017-09-19] MEDS: MethylPREDNISolone Sod Succinate Inj 40 MG/ML Vial IV.PUSH SCH ×4 (03:31→22:28)
[2017-09-19] MEDS: Piperacil/Tazo 4.5 GM Premix 4.5 GM/100 ML BAG IV.SIG SCH (03:32)
[2017-09-19] MEDS: Chlorhexidine Gluconate 2% 1 Pack (2 Cloths) TOPICAL SCH (03:33)
--- NOTE | 2017-09-19 04:05 | XR ---
EXAM DATE: 09/19/2017 3:50 AM EDT AGE/SEX: 77 years / Male INDICATIONS: Respiratory failure. CLINICAL DATA: This is the patient's subsequent encounter. Patient reports that signs and symptoms h ave been present for 1 month and indicates a pain score of Nonresponsive. MEDICAL/SURGICAL HISTORY: . Hypertension. Diabetes mellitus type II. Emphysema. TB, Afib. Non e. COMPARISON: [facility] [place] 1V SINGLE AP, 09/17/2017. . FINDINGS: Bilateral pleural thickening/scarring again noted, bases worse in the apices. Patchy, mild upper lobe predominant parenchymal consolidation again seen, not significantly changed. Small right pleural eff usion possible. No pneumothorax. Heart size stable, within normal limits. Tracheostomy tube again seen. CONCLUSION: No significant change. Electronically signed by: Ino Jackson MD 09/19/2017 4:04 AM EDT
[2017-09-19 04:23] LABS: Baso # (Auto) 0.1 th/mm3 (0.0-0.2); Baso % (Auto) 0.3 % (0.0-2.0); Hematocrit 33.8 % (39.0-51.0); Hemoglobin 10.8 gm/dL (13.0-17.0); Lymph # (Auto) 0.1 th/mm3 (1.0-4.8); Lymph % (Auto) 0.8 % (9.0-44.0); Mean Corpuscular Hemoglobin 28.5 pg (27.0-34.0); Mean Corpuscular Volume 89.2 fL (80.0-100.0); Mean Platelet Volume 7.9 fL (7.0-11.0); Mono # (Auto) 0.4 th/mm3 (0.0-0.9); Mono % (Auto) 2.4 % (0.0-8.0); Neut # (Auto) 16.2 th/mm3 (1.8-7.7); Neut % (Auto) 96.5 % (16.0-70.0); Platelet Count 285 th/mm3 (150-450); Red Blood Count 3.78 mil/mm3 (4.50-5.90); Red Cell Distribution Width 15.1 % (11.6-17.2); White Blood Count 16.8 th/mm3 (4.0-11.0)
[2017-09-19 04:52] LABS: Alanine Aminotransferase 35 U/L (12-78); Anion Gap 8 meq/L (5-15); Aspartate Aminotransferase 12 U/L (15-37); Blood Urea Nitrogen 59 mg/dL (7-18); Calcium 8.3 mg/dL (8.5-10.1); Carbon Dioxide 37.6 meq/L (21.0-32.0); Chloride 99 meq/L (98-107); Glomerular Filtration Rate Greater Than 89 mL/min (>89); Glucose,Random 131 mg/dL (74-106); Magnesium 2.6 mg/dL (1.5-2.5); Phosphorus 3.8 mg/dL (2.5-4.9); Potassium 3.3 meq/L (3.5-5.1); Sodium 145 meq/L (136-145)
[2017-09-19 04:54] LABS: Alkaline Phosphatase 105 U/L (45-117)
[2017-09-19] MEDS: Artificial Tears Opth Drops 15 ML Bottle EACH EYE SCH ×3 (05:42→22:30)
--- NOTE | 2017-09-19 09:23 | P.PNID ---
Subjective Remarks: Patient is a 77-year-old male, initially admitted to the hospital August 21 complaining of some right upper quadrant pain and some chest pain. There is mention that he has a chronic cough. He was not short of breath, no nausea or vomiting or diarrhea, and no fever and chills. Evaluation revealed multiple pulmonary masses, COPD, and bilateral pleural effusion. He underwent thoracentesis, and fluid cytology did not show any malignancy. He underwent lung biopsy and that also did not show any definite evidence of malignancy. On August 23 he had increasing shortness of breath, and was transferred to the ICU. He ended up getting intubated. Since then patient has been on the vent, and has had failure to wean. He underwent tracheostomy on September 08, and PEG placement on September 11. Patient has had multiple cultures done. All his blood cultures are negative. He had pleural fluid on August 25 and September 09 and they were negative. Sputum culture August 26, September 05, and September 07 were all showing normal respiratory tom. Patient's WBC has been elevated to more than 20,000. Today his white count went up to 27.1. He has had liquid stool, and on August 15 stool for C. difficile came back positive. Patient has been noted to have some foul smelling reddish gauge secretions from his tracheostomy. He has not been febrile. Infectious disease consultation has been requested to assist in evaluation and treatment with worsening sepsis, and trach site infection. Notes reviewed Temps ok On the vent, on CPAP Awake and focusing Neurosurgery notes reviewed Trach site C/S normal skin tom Sputum NF Stool volume not a lot WBC decreasing Antibiotics: Zosyn Vanco IV Vanco po Diflucan Lines: No evidence of infection Past Medical History: Diabetes Gout Hypertension Prostate CA Allergies/Adverse Reactions: Allergies No Known Allergies Allergy (Unknown, Uncoded 08/20/17 17:57) Objective Vital Signs 09/18/17 12:00 09/18/17 16:00 09/18/17 18:07 Temperature 99.0 F 97.6 F Pulse Rate 75 75 Respiratory Rate 23 20 20 Blood Pressure 142/78 H 147/78 H Pulse Oximetry 98 97 97 09/18/17 18:08 09/18/17 20:00 09/18/17 21:20 Temperature 97.7 F Pulse Rate 71 88 92 H Respiratory Rate 21 20 21 Blood Pressure 166/84 H Pulse Oximetry 09/19/17 00:00 09/19/17 00:22 09/19/17 03:56 Temperature 99.0 F Pulse Rate 86 89 86 Respiratory Rate 22 22 21 Blood Pressure 158/74 H Pulse Oximetry 96 98 09/19/17 04:00 Temperature 97.8 F Pulse Rate 85 Respiratory Rate 22 Blood Pressure 136/67 Pulse Oximetry Intake & Output 09/18/17 09/19/17 09/19/17 18:59 06:59 18:59 Intake Total 1210 / 1210 950 / 950 Output Total 1100 / 1100 800 / 800 Balance 110 / 110 150 / 150 Weight 70.9 kg Intake: IV 200 / 200 100 / 100 Zosyn 4.5 GM Premix 4.5 gm In 200 / 200 100 / 100 100 ml @ 200 mls/hr IV.SIG Q6H [facility] Rx#:[id number] Tube Feeding 610 / 610 250 / 250 Tube Irrigant 100 / 100 Water Bolus Amount 400 / 400 500 / 500 Output: Urine 1100 / 1100 750 / 750 Stool 50 / 50 Other: Date of Last Bowel Movement 09/18/17 09/18/17 09/15/17 22:30 Sputum - Endotracheal Gram Stain - Final 09/15/17 22:30 Sputum - Endotracheal Sputum Culture - Preliminary Heavy growth normal respiratory tom 09/16/17 16:55 Blood - Peripheral Aerobic Blood Culture - Preliminary No growth in 2 days 09/16/17 16:55 Blood - Peripheral Anaerobic Blood Culture - Preliminary No growth in 2 days 09/16/17 16:45 Blood - Peripheral Aerobic Blood Culture - Preliminary No growth in 2 days 09/16/17 16:45 Blood - Peripheral Anaerobic Blood Culture - Preliminary No growth in 2 days 09/16/17 09:30 Wound - Neck Gram Stain - Final 09/16/17 09:30 Wound - Neck Wound Culture - Final Lab - Hematology Results 09/18/17 09/19/17 12:32 03:12 WBC 18.0 H 16.8 H RBC 3.60 L 3.78 L Hgb 10.4 L 10.8 L Hct 32.4 L 33.8 L MCV 90.2 89.2 MCH 29.0 28.5 MCHC 32.1 32.0 RDW 15.5 15.1 Plt Count 305 285 MPV 7.9 7.9 Neut % (Auto) 96.5 H Lymph % (Auto) 0.8 L Johnston % (Auto) 2.4 Eos % (Auto) 0.0 Baso % (Auto) 0.3 Neut # (Auto) 16.2 H Lymph # (Auto) 0.1 L Johnston # (Auto) 0.4 Eos # (Auto) 0.0 Baso # (Auto) 0.1 WBC Differential . Differential Comment Auto diff final Lab - Chemistry Results 09/17/17 09/18/17 09/18/17 21:55 00:16 09:28 Sodium Potassium Chloride Carbon Dioxide Anion Gap BUN Creatinine Estimated GFR POC Glucose 238 H 230 H 130 H Random Glucose Calcium Phosphorus Magnesium Total Bilirubin AST ALT Alkaline Phosphatase Ammonia Total Protein Albumin 09/18/17 09/18/17 09/18/17 12:32 13:17 17:42 Sodium 146 H Potassium 3.6 D Chloride 100 Carbon Dioxide 39.3 H Anion Gap 7 BUN 60 H Creatinine 0.87 Estimated GFR 85 L POC Glucose 179 H 182 H Random Glucose 156 H Calcium 8.3 L Phosphorus Magnesium Total Bilirubin 0.6 AST 17 ALT 39 Alkaline Phosphatase 116 Ammonia Total Protein 6.9 Albumin 1.9 L 09/18/17 09/18/17 09/19/17 21:15 23:32 03:12 Sodium 145 Potassium 3.3 L Chloride 99 Carbon Dioxide 37.6 H Anion Gap 8 BUN 59 H Creatinine 0.80 Estimated GFR Greater than 89 POC Glucose 221 H 242 H Random Glucose 131 H Calcium 8.3 L Phosphorus 3.8 Magnesium 2.6 H Total Bilirubin 0.5 AST 12 L ALT 35 Alkaline Phosphatase 105 Ammonia Total Protein 7.0 Albumin 2.0 L 09/19/17 09/19/17 03:12 03:41 Sodium Potassium Chloride Carbon Dioxide Anion Gap BUN Creatinine Estimated GFR POC Glucose 131 H Random Glucose Calcium Phosphorus Magnesium Total Bilirubin AST ALT Alkaline Phosphatase Ammonia 32 Total Protein Albumin Imaging: ITS Impressions Cervical Spine MRI 09/15/17 00:00 CONCLUSION: 1. There appears to be focal severe spinal canal stenosis at C4-5. There is increased signal within the body of the spinal cord at this level most likely representing some myelomalacia. 2. Moderate diffuse broad-based bulging at C3-4 with some mild increased signal in the spinal cord at this level. 3. Moderate spinal canal stenosis at C6-C7 4. Bilateral facet arthritis at multiple levels. 5. Extensive primary degenerative changes with disc degeneration and disc space narrowing throughout the entire cervical spine. Chest X-Ray 09/19/17 06:00 CONCLUSION: No significant change. Physical Exam: Physical Examination GENERAL: awake and focusing, tracking, on CPAP, not in respiratory distress. SKIN: Warm and dry. No generalized rash, no ecchymoses and no evidence of embolic lesions. HEAD: Atraumatic. Normocephalic. No temporal wasting, or tenderness. EYES: [place] conjunctiva. No petechia or hemorrhage. Pupils equal, round and reactive to light. Extraocular movements full and intact. No scleral icterus. No injection or drainage. EARS, NOSE AND THROAT: Nose without bleeding or purulent nasal discharge. Dry oral mucosa. NECK: Tracheostomy site ok, seems to have less drainage, and smell much improved CARDIOVASCULAR: Regular rate and rhythm. No murmurs, rubs or gallops heard RESPIRATORY: Coarse breath sounds equal bilaterally. No rales, wheezing or rhonchi ABDOMEN: Soft, non-tender, nondistended. Bowel sounds present and normoactive. No guarding. No rebound. No organomegaly. PEG site ok. EXTREMITIES: No clubbing, cyanosis. Has some nai pitting pedal edema. Well perfused and warm. NEUROLOGICAL: Awake, focusing PSYCHIATRIC: Unable to assess. LINE: No evidence of infection : Larson in place, urine looks clear Assessment and Plan - Plan IMPRESSION Sepsis, better - has worsening leukocytosis - ?HCAP - trach site infection - C diff colitis Trach site infection, procedure done 09/08 C diff colitis Respiratory failure, S/P trach Leukocytosis, improving RECOMMENDATION Stop IV Vanco Stop Zosyn, change to Unasyn and give about 7 days Continue Diflucan Continue po Vanco for C diff, plan 14 days Weaning per CCM Follow CBC Monitor progress Dr Hailey Hampton available this weekend if needed I will be back FridaySeptember 22
[2017-09-19] MEDS: Chlorhexidine 0.12% Oral Kit 15 ML UDC SWISH-SPIT SCH ×2 (09:43→22:21)
[2017-09-19] MEDS: Beneprotein Powder Packet G-TUBE SCH ×3 (09:43→18:21)
[2017-09-19] MEDS: Insulin Detemir Inj 1,000 UNIT/10 ML Vial SQ SCH ×2 (09:46→22:25)
[2017-09-19] MEDS: Polyethylene Glycol 3350 17 GM Packet PO SCH ×2 (09:46→22:25)
--- NOTE | 2017-09-19 09:51 | P.PNCC ---
Subjective Subjective Remarks/Hospital Course: This is a 77-year-old [place] male/Mandarin speaking only. Date of admission 08/21/2017. Date of consultation 08/23/2017. Past medical history is documented as hypertension, gout and diabetes mellitus. He is on no home medications. He does have remote history of tuberculosis 10 years ago. He quit tobacco use 20 years ago. He presented to [facility] on 08/21/2017 with a 3-4 days of intermittent pain in this region that acutely acutely worsened on 08/20 . They state the pain is in the right upper quadrant and radiates to the upper thorax and around his back. Hospital workup included a CT pulmonary angiogram which revealed bilateral emphysema. Multiple bilateral pulmonary nodules present with the largest in the right lung measuring 2.8 cm and the largest in the left lung measuring 2.6 cm. Severe compressive atelectasis in the right lower lobe. Moderate-sized pulmonary effusion. Pleural thickening in the anterior inferior hemothorax. Right paratracheal lymph node 15 mm. 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 No lytic bone lesions. Also noted significant coronary artery and aortic atherosclerotic calcifications. Patient was evaluated by hematology. Recommended lung biopsy when stable. She has become increasingly short of breath and was transferred from a [facility] to [facility] at 70%. Patient became less responsive and we were consulted. Patient required intubation/central line placement is currently having a right pigtail catheter placed to remove fluid from right lung. 08/24: hypotensive this AM requiring levophed at 8 mcg/min. drained 600cc of serosanguinous fluid out of chest tube. responded successfully to straight-leg challenge. intubated, sedated. remains very critically ill. 08/25: Afebrile. Off all antihypertensives and vasopressin. Currently normal saline at 100 cc an hour. On propofol and fentanyl drips. 08/26: Afebrile. No tonsillar creatinine currently at 20 cc an hour. Remains on increased propofol drip at 40 mcg/kg/min secondary to severe agitation overnight and on attempted spontaneous breathing trials. Will try dexmedetomidine attempt to wean today. 08/27: Worsening lung infiltrates associated with hydration. Afebrile. Known diastolic dysfunction. He appears to be exquisitely sensitive to fluid balance. Presently converting to Precedex and will try spontaneous breathing trials. 08/28: Continued worsening bilateral lung infiltrates. IV fluid has been stopped yesterday, will add additional diuretics. Diffusion gradient worsened, unable to wean from ventilator. 08/29: Mild improvement in lung infiltrates after diuresis without harming renal function. Remains ventilator dependent. Biopsy yesterday, results pending. 08/30: Worsening gas exchange with deteriorating diffusion capacity and requirements for increased inspired oxygen concentration. This all despite 2 L diuresis. Await pathology results. 08/31: Lung infiltrates resolving with diuresis. Continues to behave like diastolic heart failure. Contraction alkalosis is developing will add a carbonic anhydrase inhibitor for a couple of days. T-max 100.8 but for the most part he has been afebrile. Lung mass does appear to be a malignancy. Agree with attempt to rebiopsy at some point. We will continue to diuresis until his kidneys squeak. At 7-10 days of antibiotics it may be best to stop treatment and reculture for fevers. I will defer to the pulmonary service. 09/01: remains intubated and sedated. continues to fail any weaning attempts. consulted palliative to assist in goals of care: may need tracheostomy for further aggressive care. 09/02: palliative meeting with family again today. no improvements. it has been greater than 10 days of full empiric antibiotics: will discontinue and re- culture for fever. 09/03: chest tube on water seal with minimal output. cxr unchanged. CT removed today on my eval. no other changes or improvements. unlikely to have favorable outcome. quite hypercarbic despite full vent support: will make changes to ventilation to assist with hypercarbic. 09/04: Remains sedated, orally intubated on mechanical ventilation. 09/05: Remains sedated, orally intubated on mechanical ventilation. Failed CPAP trials yesterday. 09/06: Sedated, arousable, orally intubated on mechanical ventilation. Failed CPAP trials yesterday. Family wishes to continue aggressive care and desire trach and PEG. 09/07: T-max 100.3. One bowel movement yesterday. Failed CPAP trials yesterday. OG tube plugged overnight and able to place new feeding tube at the present time. We will switch all medications to IV at the present time including amiodarone drip at 0.5 mg/min. Check digoxin level prior to resuming IV. 09/08: T-max 99.2. Currently afebrile. One bowel movement overnight. Plan for percutaneous tracheostomy today. GI consult for PEG placement. CT chest revealed small bilateral pleural effusions. Persistent right middle lobe mass which we will consult IR again for rebiopsy. Will ask pulmonary to see again 09/09: Remains on full vent support more critical today increasing oxygen requirement FiO2 at 65 of have increase PEEP to 10 to attempt wean oxygen. Air entry markedly diminished bilaterally. Chest x-ray shows bilateral prominent interstitial infiltrates. Fluid up by approximately 10 kg. I will discontinue half-normal saline. Lasix 40 mg IV 1 09/10: Patient remains critical showing agonal breathing on the ventilator. Bilateral coarse breath sounds. Chest x-ray shows bilateral patchy infiltrates improved left effusion after thoracentesis and removal of 1 L of fluid. However FiO2 requirement remains high at 65%. UO 1.5L in 24 hours. Lab work pending. IV steroids started for probable COPD exacerbation given history of smoking 09/11: Remains critical but slightly more stable. Breathing pattern has improved and oxygenation has improved after starting IV steroids for COPD exacerbation and thoracentesis on 09/09/2017. Currently FiO2 down to 50%, PEEP at 10. We will further wean. Sodium increased to 151 start quarter normal saline, increase Lasix. Family wished to proceed with full code. PEG today 09/12: Remains intubated sedated with propofol. Urine output 1.8 L. BUN/ creatinine slightly increased today 72/1.34. Will reduce Lasix dose also reduce Solu-Medrol. Vent dyssynchrony has improved but FiO2 remains high at 55% 09/13: Off all sedation for 24 hours. Apparently patient notes has had one family is at bedside asking questions. BUN/creatinine slightly improved 71/ 1.14 from 72/1.34. WBC count slightly improved to 20.7. FiO2 at 45% chest x- ray shows some interval improvement. Also Na improved to 147 09/14: Remains intubated off sedation. Slightly tachypneic on pressure support . Urine output approximately 1500 mL in 24 hours 09/15: Patient clearly more awake today seems to understand some of the commands. Concern about quadriparesis patient is not able to withdrawal to pain 4, even though it appears he does feel the pain. MRI of the C-spine ordered. Neurology consulted. Otherwise BUN/creatinine slightly improved 09/16: Patient remains quadriparetic, slight movement of the left upper extremity. MRI of the C-spine shows focal severe spinal canal stenosis at C4-5 , with increased signal within the body of the spinal cord at this level most likely representing some myelomalacia. Moderate diffuse broad-based bulging at C3-4 with some mild increased signal in the spinal cord at this level. Moderate spinal canal stenosis at C6-C7. Also there is evidence of tracheostomy site infection. Explained MRI findings to son and patient's using electronic core sticker. Discussed with Dr. Carvalho. Increase Solu-Medrol to 250 mg IV every 6 hours. Consult neurosurgery 09/17: Remains septic, remains quadriplegic. Slight movements of the left upper extremity noted. C. difficile positive p.o. vancomycin added by ID yesterday. Appreciate input from Dr. Victor. Patient hs severe upper cervical stenosis with myelopathy and resultant SCI/severe quadriplegia of the upper and lower extremities. Prognosis very poor per neurosurgery 09/18: Afebrile. Tube feeds are at goal. No change in neurological status. Left upper extremity movement only. SUBJECTIVE: 09/19: Resting comfortably in bed in no acute distress. Noted able to squeeze left hand in slightly squeeze right hand. Will move bilateral lower extremities slightly to command. Positive BM. Objective Vital Signs / I&O: Vital Signs 09/18/17 12:00 09/18/17 16:00 09/18/17 18:07 Temperature 99.0 F 97.6 F Pulse Rate 75 75 Respiratory Rate 23 20 20 Blood Pressure 142/78 H 147/78 H Pulse Oximetry 98 97 97 09/18/17 18:08 09/18/17 20:00 09/18/17 21:20 Temperature 97.7 F Pulse Rate 71 88 92 H Respiratory Rate 21 20 21 Blood Pressure 166/84 H Pulse Oximetry 09/19/17 00:00 09/19/17 00:22 09/19/17 03:56 Temperature 99.0 F Pulse Rate 86 89 86 Respiratory Rate 22 22 21 Blood Pressure 158/74 H Pulse Oximetry 96 98 09/19/17 04:00 09/19/17 09:43 Temperature 97.8 F Pulse Rate 85 Respiratory Rate 22 20 Blood Pressure 136/67 Pulse Oximetry 99 Intake & Output 09/18/17 09/19/17 09/19/17 18:59 06:59 18:59 Intake Total 1210 / 1210 950 / 950 Output Total 1100 / 1100 800 / 800 Balance 110 / 110 150 / 150 Weight 70.9 kg Intake: IV 200 / 200 100 / 100 Zosyn 4.5 GM Premix 4.5 gm In 200 / 200 100 / 100 100 ml @ 200 mls/hr IV.SIG Q6H [facility] Rx#:[id number] Tube Feeding 610 / 610 250 / 250 Tube Irrigant 100 / 100 Water Bolus Amount 400 / 400 500 / 500 Output: Urine 1100 / 1100 750 / 750 Stool 50 / 50 Other: Date of Last Bowel Movement 09/18/17 09/18/17 Result Diagrams: 09/19/17 03:12 09/19/17 03:12 Other Results: Microbiology 09/15/17 22:30 Sputum - Endotracheal Gram Stain - Final 09/15/17 22:30 Sputum - Endotracheal Sputum Culture - Final Heavy growth normal respiratory tom 09/16/17 16:55 Blood - Peripheral Aerobic Blood Culture - Preliminary No growth in 2 days 09/16/17 16:55 Blood - Peripheral Anaerobic Blood Culture - Preliminary No growth in 2 days 09/16/17 16:45 Blood - Peripheral Aerobic Blood Culture - Preliminary No growth in 2 days 09/16/17 16:45 Blood - Peripheral Anaerobic Blood Culture - Preliminary No growth in 2 days 09/16/17 09:30 Wound - Neck Gram Stain - Final 09/16/17 09:30 Wound - Neck Wound Culture - Final Imaging: ITS Impressions Cervical Spine MRI 09/15/17 00:00 CONCLUSION: 1. There appears to be focal severe spinal canal stenosis at C4-5. There is increased signal within the body of the spinal cord at this level most likely representing some myelomalacia. 2. Moderate diffuse broad-based bulging at C3-4 with some mild increased signal in the spinal cord at this level. 3. Moderate spinal canal stenosis at C6-C7 4. Bilateral facet arthritis at multiple levels. 5. Extensive primary degenerative changes with disc degeneration and disc space narrowing throughout the entire cervical spine. Chest X-Ray 09/16/17 06:00 CONCLUSION: Increasing partially consolidated infiltrates left midlung. Chest X-Ray 09/17/17 06:00 CONCLUSION: Improving but persistent interstitial infiltrate left midlung. Chest X-Ray 09/19/17 06:00 CONCLUSION: No significant change. Objective Remarks: GENERAL: 77-year-old male currently ventilated via trach, arousable but not able to move right upper/bilateral lower extremity's. Slight movement left upper extremity SKIN: Warm and dry. No rash HEAD: Atraumatic. Normocephalic. EYES: Pupils equal and round about 2 mm bilaterally reactive. No scleral icterus. No injection or drainage. ENT: No nasal bleeding or discharge. Mucous membranes dry. NECK: Trachea midline. Trach site erythematous infected appearing with foul smelling discharge CARDIOVASCULAR: Heart rate well controlled now. S1, S2 no S4. Without murmur. No JVD LUNGS: Coarse rhonchorous breath sounds appreciated bilaterally. Positive end expiratory wheeze. GASTROINTESTINAL: Abdomen soft, non-tender, nondistended. No guarding. MUSCULOSKELETAL: Extremities without significant peripheral edema. No obvious deformities. NEUROLOGICAL: Off all sedation. Eyes spontaneously open, appears to understand verbal commands, moves his head side to side. Able to extend left wrist strength approximately 3 out of 5.. Right upper extremity slightly squeezed hand. Slight movement to command on right lower extremity this a.m. Sensation withdrew to noxious stimuli bilateral feet this a.m. Assessment and Plan - Assessment and Plan Plan: A/P Assessment and Plan Neuro/Psych: Acute toxic metabolic encephalopathy Quadriplegia Severe cervical spinal cord stenosis, with acute spinal cord injury MRI C-spine 09/15: There appears to be focal severe spinal canal stenosis at C4- 5. There is increased signal within the body of the spinal cord at this level most likely representing some myelomalacia. Moderate diffuse broad-based bulging at C3-4 with some mild increased signal in the spinal cord at this level. Moderate spinal canal stenosis at C6-C7 Bilateral facet arthritis at multiple levels. Extensive primary degenerative changes with disc degeneration and disc space narrowing throughout the entire cervical spine. Severe quadriplegia of the upper and lower extremities with some preserved residual sensory function. Neurosurgery Dr. Victor. Poor chance of neurological recovery for him Neurology Dr. Carvalho, Per his recommendations increased methylprednisolone succinate to 250 mg IV every 6 hours 09/16/[address] 08/23: 2 questionable tiny focal hemorrhages. MRI of brain 08/26 chronic small vessel ischemic and atrophic changes CT brain 09/05 revealed bilateral maxillary sinusitis. No other acute finding EEG 09/03 revealed severe encephalopathy. No epileptiform activity Acetaminophen 650 mg by tube every 6 hours as needed fever versus. PT/OT Neurosurgery -recommend C3 through 5 laminectomy CV: Uncontrolled hypertension septic shock- resolved Atherosclerotic coronary artery disease Atrial fibrillation Elevated troponin downward trend Fluid overload We will give 1 dose of acetazolamide 250 mg IV 1 now. Discontinue furosemide Amiodarone Discontinued 09/07 secondary to bradycardia and pauses Continue metoprolol 25 mg p.o. q8h Continue digoxin 0.125 mg daily.. 0.8 (Home medication is NITRENDIPINE 10 mg by mouth daily) Currently off all vasopressors, hypertensive Resp: Acute hypoxic hypercapnic respiratory failure COPD with exacerbation/Emphysema Trach site infection Bilateral pleural effusion/status post chest tube right-sided transudative in nature. Chest tube removed 09/04 Multiple bilateral pulmonary masses vs infiltrate, RML mass vs consolidation Pulmonary edema PRVC 16/1.03/24/54 Ventilator bundle Continue IV methylprednisolone succinate at increased dose as above for acute spinal cord injury, continue inhaled budesonide 0.5/2 1 inhalation twice daily Albuterol/ipratropium aerosols every 4 hours with albuterol aerosols every 2 hours as needed dyspnea CT pulmonary angiogram revealed 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 Right middle lobe 2.7 x 2.2 x 7's. Spiculated. Left lingula is 3.4 x 3.20 cm. Underlying pronounced emphysematous type changes throughout lung larios. Right pleural effusion. CT thorax 09/08 revealed multiple areas of consolidation bilaterally. Prior granulomatous disease. Focal consolidation or mass in the right middle lobe that appears unchanged. Lung mass biopsied on August 28 -results - CHRONIC INFLAMMATORY AND REACTIVE FIBROBLASTIC TISSUE CONTAINING ENTRAPPED BENIGN EPITHELIUM reconsult IR 09/08 for repeat biopsy Followed by Dr. Hardy/pulmonology. Reconsulted 09/08, recommended repeat CT in 4 weeks. Hold off the IR guided biopsy time due to unstable respiratory status, neuro status s/p percutaneous tracheostomy 09/08 (Biga/Michael). Piperacillin/tazobactam and vancomycin for trach site infection. May remove trach sutures Status post thoracentesis left side 09/09 with 1 L fluid removed. No evidence of infection GI: Hypoalbuminemia C. difficile colitis s/p PEG 09/11. Tolerating tube feeds with Glucerna 1.5 at 55 cc an hour, free water flushes 200 cc every 6 hours Lansoprazole for GI prophylaxis Lactulose 30 cc twice daily for bowel regimen/hyperammonemia P.o. vancomycin for C. difficile : Urinary retention, possible urinary stricture Acute kidney injury Maintain Larson catheter. Monitor urine output, Accurate I's and O's significant difficulty due to obstruction which may be urethral stricture which prevented serial i/o. replaced Larson catheter. Avoid nephrotoxic drugs Endo: Diabetes mellitus Hyperglycemia History of gout Sliding scale insulin with NovoLog high regimen to maintain euglycemia Currently on insulin detemir 15 units subcu twice daily Holding home medications of allopurinol 300 mg daily and colchicine 0.6 mg as needed Holding home medications of metformin 500 mg twice daily Heme: Leukocytosis Normocytic anemia Monitor CBC daily. Follow trends Coags within normal limits ID: Severe sepsis Trach site infection Healthcare associated pneumonia C. difficile colitis Appreciate ID input. Discontinue IV vancomycin, IV piperacillin/tazobactam switch to ampicillin/sulbactam by ID. Continue fluconazole 200 mg daily and p.o. vancomycin 250 4 times daily Status post bronchoscopy 09/03 cultures negative Blood culture from 08/26 no growth to date Sputum 09/05 no growth Influenza a and B negative 09/07 Bronchial wash negative FEN: Hypernatremia-resolved Hypopotassemia Quarter normal saline DCd Replace electrolytes as clinically indicated per ICU electrolyte protocol Monitor CMP MSK: PT evaluate and treat Access Peripheral IV. Central line if indicated Prophylaxis -GI -lansoprazole.. DVT -SCD/heparin subcutaneous 5000 units 3 times a day. No signs of bleeding on MRI brain Level 2 follow-up
[2017-09-19] MEDS ORDERED: Potassium Chloride 20 MEQ Pwd Pkt NG/OG ONE (10:45)
[2017-09-19] MEDS ORDERED: Pharmacy Ordered Lab Info OTHER ONE (10:45)
[2017-09-19] MEDS ORDERED: Lidocaine 1%/Epinephrine 1:100,000 Inj 20 ML Vial ONE (10:48)
[2017-09-19] MEDS ORDERED: acetaZOLAMIDE Inj 250 MG in Sodium Chlor 0.9% Inj 50 ML IV.SIG ONE (11:00)
[2017-09-19] MEDS: Potassium Chlor 10 mEq Premix 10 MEQ/100 ML PIGGYBACK IV.SIG SCH ×3 (11:11→18:21)
[2017-09-19] MEDS: Ampicillin/Sulbactam Inj 3 GM in Sodium Chloride 0.9% Inj 100 ML IV.SIG SCH ×3 (11:15→22:30)
[2017-09-19] MEDS ORDERED: Phenylephrine/NS 1000 MCG/10ML Syringe IV.PUSH ONE (12:00)
[2017-09-19] MEDS: Thrombin Topical Soln 5,000 UNIT Vial TOPICAL ONE ×2 (13:18→17:22)
[2017-09-19] MEDS: Gelatin Size 100 Topical Foam ONE ×2 (13:19→17:23)
[2017-09-19] MEDS ORDERED: Propofol Inj 500 MG/50 ML Vial ONE ×2 (14:22→14:28)
[2017-09-19] MEDS ORDERED: SUFentanil Inj 250 MCG/5 ML Ampul ONE (14:28)
--- NOTE | 2017-09-19 16:07 | P.DIET ---
Nutritional Evaluation Type of nutrition evaluation: follow-up Nutrition consult regarding: Tube Feeding (09/11 MDC for TFing) Nutrition screening: Pressure Injury (Pressure Ulcer Screen received 09/07. ) Subjective Subjective Comments: Pt's family wants to proceed with cervical back surgery. Pt speaks only Mandarin. Objective - Diagnosis Pulmonary Mass, Pulmonary Infiltrates - Objective % IBW: 132 (IBW = 118#) Body Weight Used for Calculations: Upper end of IBW (59 kg) Energy Needs - Lower Range (kCal/kg): 30 Energy Needs - Upper Range (kCal/kg): 35 Lower Limit kCal/kg (kCals): 1,770 Upper Limit kCal/kg (kCals): 2,065 Lower Limit Protein Factor (Grams per Kg): 1.2 Upper Limit Protein Factor (Grams per Kg): 1.5 Lower Protein Needs (Protein): 71 Upper Protein Needs (Protein): 89 Dietitian Reviewed in Medical Record: Curent medications, Intake & Output, Labs , Medical history, Tube feeding, Wound/DTI Diet Order: TFing only Objective Comments: Hx includes HTN, DM, Gout, TB (10 years ago) 09/11 PEG placed Feeding - Current Tube Feeding Tube Feeding Product: Glucerna 1.5 Tube Feeding Method: Pump Tube Feeding Rate: 55 (mls/hr) Current kCals Provided by Tube Feedin,980 Current Protein Provided by Tube Feeding (gPRO): 109 Current Free H2O Provided (m/l): 1,002 Assessment Assessment: Pt remains at high nutrition risk needing TFing to meet needs. He has been tolerating TF of Glucerna 1.5 @ 55 mls/hr and this adequately meets estimated needs. Pt is C Diff (+) and CBW = 70.9 kg. Recommendations: Continue Glucerna 1.5 @ 55 mls/hr goal Dietitian to Monitor: Lab values, Intake & Output, Tube feeding tolerance, Weight change, Wound/skin status, Medical course
[2017-09-19 18:53] LABS: ABG Base Excess 10.4 mmol/L (-2-2); ABG PCO2 71 mmHg (38-42); ABG PO2 139 mmHG (61-120)
--- NOTE | 2017-09-19 22:00 | XR ---
EXAM DATE: 09/19/2017 9:31 PM EDT AGE/SEX: 77 years / Male INDICATIONS: C3-C5 laminotomy. CLINICAL DATA: This is the patient's initial encounter. Patient reports that signs and symptoms have been present for 1 day and indicates a pain score of Nonresponsive. MEDICAL/SURGICAL HISTORY: . Hypertension. Diabetes mellitus type II. Emphysema. TB, Afib. Non e. COMPARISON: No prior exams available for comparison. FINDINGS: Surgical hardware is noted posteriorly at the C3-C5 levels. CONCLUSION: Surgical hardware noted posteriorly at the C3-C5 levels. Electronically signed by: Arsalan Milian MD 09/19/2017 9:58 PM EDT
[2017-09-19] MEDS ORDERED: Ampicillin/Sulbactam Inj 3 GM in Sodium Chloride 0.9% Inj 100 ML IV.SIG ONE (23:00)
[2017-09-20] MEDS: Insulin NovoLOG Aspart Correctional Sugar Inj SQ SCH ×7 (01:11→22:10)
[2017-09-20] MEDS: Metoprolol Tartrate 25 MG Tablet PO SCH ×3 (01:12→17:39)
[2017-09-20] MEDS: Oral Hygiene Kit OROPHARYNG SCH ×4 (01:13→17:39)
[2017-09-20] MEDS: Ampicillin/Sulbactam Inj 3 GM in Sodium Chloride 0.9% Inj 100 ML IV.SIG SCH ×4 (05:07→21:31)
[2017-09-20] MEDS: MethylPREDNISolone Sod Succinate Inj 40 MG/ML Vial IV.PUSH SCH ×3 (05:08→21:29)
[2017-09-20] MEDS: Chlorhexidine Gluconate 2% 1 Pack (2 Cloths) TOPICAL SCH (05:08)
[2017-09-20 05:22] LABS: Baso % (Auto) 0.1 % (0.0-2.0); Hematocrit 28.9 % (39.0-51.0); Hemoglobin 9.3 gm/dL (13.0-17.0); Lymph # (Auto) 0.2 th/mm3 (1.0-4.8); Lymph % (Auto) 0.8 % (9.0-44.0); Mean Corpuscular HGB Conc 32.1 % (32.0-36.0); Mean Corpuscular Hemoglobin 28.3 pg (27.0-34.0); Mean Corpuscular Volume 88.2 fL (80.0-100.0); Mono # (Auto) 0.9 th/mm3 (0.0-0.9); Mono % (Auto) 3.6 % (0.0-8.0); Neut # (Auto) 22.8 th/mm3 (1.8-7.7); Neut % (Auto) 95.5 % (16.0-70.0); Platelet Count 258 th/mm3 (150-450); Red Blood Count 3.28 mil/mm3 (4.50-5.90); Red Cell Distribution Width 15.4 % (11.6-17.2); White Blood Count 23.8 th/mm3 (4.0-11.0)
[2017-09-20 05:40] LABS: Alanine Aminotransferase 28 U/L (12-78); Albumin 1.8 g/dL (3.4-5.0); Anion Gap 9 meq/L (5-15); Aspartate Aminotransferase 15 U/L (15-37); Blood Urea Nitrogen 49 mg/dL (7-18); Chloride 102 meq/L (98-107); Glomerular Filtration Rate Greater Than 89 mL/min (>89); Glucose,Random 159 mg/dL (74-106); Magnesium 2.6 mg/dL (1.5-2.5); Phosphorus 3.6 mg/dL (2.5-4.9); Potassium 3.2 meq/L (3.5-5.1); Sodium 147 meq/L (136-145)
[2017-09-20 05:42] LABS: Alkaline Phosphatase 91 U/L (45-117); Total Protein 6.1 g/dL (6.4-8.2)
[2017-09-20] MEDS: Chlorhexidine 0.12% Oral Kit 15 ML UDC SWISH-SPIT SCH ×2 (08:17→21:44)
[2017-09-20] MEDS: Beneprotein Powder Packet G-TUBE SCH ×3 (08:18→17:41)
[2017-09-20] MEDS: Artificial Tears Opth Drops 15 ML Bottle EACH EYE SCH ×2 (08:18→14:18)
[2017-09-20] MEDS: Polyethylene Glycol 3350 17 GM Packet PO SCH ×2 (08:19→21:46)
[2017-09-20] MEDS ORDERED: Morphine Inj 4 MG/ML Vial IV.PUSH PRN (08:30)
--- NOTE | 2017-09-20 08:39 | P.PNCC ---
Subjective Subjective Remarks/Hospital Course: This is a 77-year-old [place] male/Mandarin speaking only. Date of admission 08/21/2017. Date of consultation 08/23/2017. Past medical history is documented as hypertension, gout and diabetes mellitus. He is on no home medications. He does have remote history of tuberculosis 10 years ago. He quit tobacco use 20 years ago. He presented to [facility] on 08/21/2017 with a 3-4 days of intermittent pain in this region that acutely acutely worsened on 08/20 . They state the pain is in the right upper quadrant and radiates to the upper thorax and around his back. Hospital workup included a CT pulmonary angiogram which revealed bilateral emphysema. Multiple bilateral pulmonary nodules present with the largest in the right lung measuring 2.8 cm and the largest in the left lung measuring 2.6 cm. Severe compressive atelectasis in the right lower lobe. Moderate-sized pulmonary effusion. Pleural thickening in the anterior inferior hemothorax. Right paratracheal lymph node 15 mm. 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 No lytic bone lesions. Also noted significant coronary artery and aortic atherosclerotic calcifications. Patient was evaluated by hematology. Recommended lung biopsy when stable. She has become increasingly short of breath and was [facility] to [facility] at 70%. Patient became less responsive and we were consulted. Patient required intubation/central line placement is currently having a right pigtail catheter placed to remove fluid from right lung. 08/24: hypotensive this AM requiring levophed at 8 mcg/min. drained 600cc of serosanguinous fluid out of chest tube. responded successfully to straight-leg challenge. intubated, sedated. remains very critically ill. 08/25: Afebrile. Off all antihypertensives and vasopressin. Currently normal saline at 100 cc an hour. On propofol and fentanyl drips. 08/26: Afebrile. No tonsillar creatinine currently at 20 cc an hour. Remains on increased propofol drip at 40 mcg/kg/min secondary to severe agitation overnight and on attempted spontaneous breathing trials. Will try dexmedetomidine attempt to wean today. 08/27: Worsening lung infiltrates associated with hydration. Afebrile. Known diastolic dysfunction. He appears to be exquisitely sensitive to fluid balance. Presently converting to Precedex and will try spontaneous breathing trials. 08/28: Continued worsening bilateral lung infiltrates. IV fluid has been stopped yesterday, will add additional diuretics. Diffusion gradient worsened, unable to wean from ventilator. 08/29: Mild improvement in lung infiltrates after diuresis without harming renal function. Remains ventilator dependent. Biopsy yesterday, results pending. 08/30: Worsening gas exchange with deteriorating diffusion capacity and requirements for increased inspired oxygen concentration. This all despite 2 L diuresis. Await pathology results. 08/31: Lung infiltrates resolving with diuresis. Continues to behave like diastolic heart failure. Contraction alkalosis is developing will add a carbonic anhydrase inhibitor for a couple of days. T-max 100.8 but for the most part he has been afebrile. Lung mass does appear to be a malignancy. Agree with attempt to rebiopsy at some point. We will continue to diuresis until his kidneys squeak. At 7-10 days of antibiotics it may be best to stop treatment and reculture for fevers. I will defer to the pulmonary service. 09/01: remains intubated and sedated. continues to fail any weaning attempts. consulted palliative to assist in goals of care: may need tracheostomy for further aggressive care. 09/02: palliative meeting with family again today. no improvements. it has been greater than 10 days of full empiric antibiotics: will discontinue and re- culture for fever. 09/03: chest tube on water seal with minimal output. cxr unchanged. CT removed today on my eval. no other changes or improvements. unlikely to have favorable outcome. quite hypercarbic despite full vent support: will make changes to ventilation to assist with hypercarbic. 09/04: Remains sedated, orally intubated on mechanical ventilation. 09/05: Remains sedated, orally intubated on mechanical ventilation. Failed CPAP trials yesterday. 09/06: Sedated, arousable, orally intubated on mechanical ventilation. Failed CPAP trials yesterday. Family wishes to continue aggressive care and desire trach and PEG. 09/07: T-max 100.3. One bowel movement yesterday. Failed CPAP trials yesterday. OG tube plugged overnight and able to place new feeding tube at the present time. We will switch all medications to IV at the present time including amiodarone drip at 0.5 mg/min. Check digoxin level prior to resuming IV. 09/08: T-max 99.2. Currently afebrile. One bowel movement overnight. Plan for percutaneous tracheostomy today. GI consult for PEG placement. CT chest revealed small bilateral pleural effusions. Persistent right middle lobe mass which we will consult IR again for rebiopsy. Will ask pulmonary to see again 09/09: Remains on full vent support more critical today increasing oxygen requirement FiO2 at 65 of have increase PEEP to 10 to attempt wean oxygen. Air entry markedly diminished bilaterally. Chest x-ray shows bilateral prominent interstitial infiltrates. Fluid up by approximately 10 kg. I will discontinue half-normal saline. Lasix 40 mg IV 1 09/10: Patient remains critical showing agonal breathing on the ventilator. Bilateral coarse breath sounds. Chest x-ray shows bilateral patchy infiltrates improved left effusion after thoracentesis and removal of 1 L of fluid. However FiO2 requirement remains high at 65%. UO 1.5L in 24 hours. Lab work pending. IV steroids started for probable COPD exacerbation given history of smoking 09/11: Remains critical but slightly more stable. Breathing pattern has improved and oxygenation has improved after starting IV steroids for COPD exacerbation and thoracentesis on 09/09/2017. Currently FiO2 down to 50%, PEEP at 10. We will further wean. Sodium increased to 151 start quarter normal saline, increase Lasix. Family wished to proceed with full code. PEG today 09/12: Remains intubated sedated with propofol. Urine output 1.8 L. BUN/ creatinine slightly increased today 72/1.34. Will reduce Lasix dose also reduce Solu-Medrol. Vent dyssynchrony has improved but FiO2 remains high at 55% 09/13: Off all sedation for 24 hours. Apparently patient notes has had one family is at bedside asking questions. BUN/creatinine slightly improved 71/ 1.14 from 72/1.34. WBC count slightly improved to 20.7. FiO2 at 45% chest x- ray shows some interval improvement. Also Na improved to 147 09/14: Remains intubated off sedation. Slightly tachypneic on pressure support . Urine output approximately 1500 mL in 24 hours 09/15: Patient clearly more awake today seems to understand some of the commands. Concern about quadriparesis patient is not able to withdrawal to pain 4, even though it appears he does feel the pain. MRI of the C-spine ordered. Neurology consulted. Otherwise BUN/creatinine slightly improved 09/16: Patient remains quadriparetic, slight movement of the left upper extremity. MRI of the C-spine shows focal severe spinal canal stenosis at C4-5 , with increased signal within the body of the spinal cord at this level most likely representing some myelomalacia. Moderate diffuse broad-based bulging at C3-4 with some mild increased signal in the spinal cord at this level. Moderate spinal canal stenosis at C6-C7. Also there is evidence of tracheostomy site infection. Explained MRI findings to son and patient's using electronic recreation therapy teacher. Discussed with Dr. Carvalho. Increase Solu-Medrol to 250 mg IV every 6 hours. Consult neurosurgery 09/17: Remains septic, remains quadriplegic. Slight movements of the left upper extremity noted. C. difficile positive p.o. vancomycin added by ID yesterday. Appreciate input from Dr. Victor. Patient hs severe upper cervical stenosis with myelopathy and resultant SCI/severe quadriplegia of the upper and lower extremities. Prognosis very poor per neurosurgery 09/18: Afebrile. Tube feeds are at goal. No change in neurological status. Left upper extremity movement only. 09/19: Resting comfortably in bed in no acute distress. Noted able to squeeze left hand in slightly squeeze right hand. Will move bilateral lower extremities slightly to command. Positive BM. SUBJECTIVE: 09/20: Status post C2 hemilaminectomy, C3 through [address] Victor yesterday. Tolerated procedure well. Restarting tube feeding today. Verbalizing words and does move left upper extremity spontaneously. Objective Vital Signs / I&O: Vital Signs 09/19/17 09:43 09/19/17 11:01 09/19/17 12:00 Temperature 98.6 F Pulse Rate 78 73 Respiratory Rate 20 22 20 Blood Pressure 154/76 H Pulse Oximetry 99 09/19/17 14:52 09/19/17 20:12 09/19/17 20:15 Temperature 97.4 F L Pulse Rate 76 Respiratory Rate 16 16 Blood Pressure 123/62 Pulse Oximetry 100 98 98 09/19/17 22:00 09/20/17 00:00 09/20/17 00:03 Temperature 97.7 F Pulse Rate 78 108 H 82 Respiratory Rate 21 16 Blood Pressure 156/61 H Pulse Oximetry 94 L 95 09/20/17 01:36 09/20/17 02:00 09/20/17 04:00 Temperature 97.8 F Pulse Rate 88 98 H Respiratory Rate 16 19 Blood Pressure 156/61 H Pulse Oximetry 94 L 95 09/20/17 04:32 Temperature Pulse Rate 94 H Respiratory Rate 17 Blood Pressure Pulse Oximetry 96 Intake & Output 09/19/17 09/20/17 09/20/17 18:59 06:59 18:59 Intake Total 545 / 545 4201 / 4201 Output Total 750 / 750 1840 / 1840 Balance -205 / -205 2361 / 2361 Weight 78.4 kg Intake: IV 425 / 425 100 / 100 Unasyn Inj 3 GM In NS Inj 100 200 / 200 100 / 100 ML @ 200 mls/hr IV.SIG Q6H MICHELET Rx#:[id number] KCl 10 mEq Premix Inj 10 meq In 200 / 200 100 ml @ 100 mls/hr IV.SIG Q1H MICHELET Rx#:[id number] Diamox Inj 250 MG In NS Inj 50 25 / 25 ML @ 100 mls/hr IV.SIG ONCE ONE Rx#:[id number] Tube Feeding 101 / 101 Tube Irrigant 120 / 120 Water Bolus Amount 400 / 400 Anesthesia Amount 3600 / 3600 Output: Stool 200 / 200 Estimated Blood Loss 600 / 600 Urine Amount (Catheter) 750 / 750 1000 / 1000 Indwelling Urethral Catheter 750 / 750 1000 / 1000 Wound Drainage 40 / 40 # 1 Posterior Neck [place] Drain 40 / 40 Other: Date of Last Bowel Movement 09/18/17 09/18/17 Result Diagrams: 09/20/17 05:00 09/20/17 05:00 Other Results: Microbiology 09/16/17 16:55 Blood - Peripheral Aerobic Blood Culture - Preliminary No growth in 3 days 09/16/17 16:55 Blood - Peripheral Anaerobic Blood Culture - Preliminary No growth in 3 days 09/16/17 16:45 Blood - Peripheral Aerobic Blood Culture - Preliminary No growth in 3 days 09/16/17 16:45 Blood - Peripheral Anaerobic Blood Culture - Preliminary No growth in 3 days 09/15/17 22:30 Sputum - Endotracheal Gram Stain - Final 09/15/17 22:30 Sputum - Endotracheal Sputum Culture - Final Heavy growth normal respiratory tom 09/16/17 09:30 Wound - Neck Gram Stain - Final 09/16/17 09:30 Wound - Neck Wound Culture - Final Imaging: ITS Impressions Cervical Spine MRI 09/15/17 00:00 CONCLUSION: 1. There appears to be focal severe spinal canal stenosis at C4-5. There is increased signal within the body of the spinal cord at this level most likely representing some myelomalacia. 2. Moderate diffuse broad-based bulging at C3-4 with some mild increased signal in the spinal cord at this level. 3. Moderate spinal canal stenosis at C6-C7 4. Bilateral facet arthritis at multiple levels. 5. Extensive primary degenerative changes with disc degeneration and disc space narrowing throughout the entire cervical spine. Chest X-Ray 09/16/17 06:00 CONCLUSION: Increasing partially consolidated infiltrates left midlung. Chest X-Ray 09/17/17 06:00 CONCLUSION: Improving but persistent interstitial infiltrate left midlung. Cervical Spine X-Ray 09/19/17 00:00 CONCLUSION: Surgical hardware noted posteriorly at the C3-C5 levels. Chest X-Ray 09/19/17 06:00 CONCLUSION: No significant change. Objective Remarks: GENERAL: 77-year-old male currently ventilated via trach, arousable but not able to move right upper/bilateral lower extremity's. Slight movement left upper extremity SKIN: Warm and dry. No rash HEAD: Atraumatic. Normocephalic. EYES: Pupils equal and round about 2 mm bilaterally reactive. No scleral icterus. No injection or drainage. ENT: No nasal bleeding or discharge. Mucous membranes dry. NECK: Trachea midline. Trach site erythematous infected appearing with foul smelling discharge. Harvey J collar place with 1 [place] CARDIOVASCULAR: Heart rate well controlled now. S1, S2 no S4. Without murmur. No JVD LUNGS: Coarse rhonchorous breath sounds appreciated bilaterally. Positive end expiratory wheeze. GASTROINTESTINAL: Abdomen soft, non-tender, nondistended. No guarding. MUSCULOSKELETAL: Extremities without significant peripheral edema. No obvious deformities. NEUROLOGICAL: Off all sedation. Eyes spontaneously open, appears to understand verbal commands, moves his head side to side. Able to extend left wrist strength approximately 3 out of 5.. Right upper extremity slightly squeezed hand. Slight movement to command on right lower extremity this a.m. Sensation withdrew to noxious stimuli bilateral feet this a.m. Assessment and Plan - Assessment and Plan Plan: A/P Assessment and Plan Neuro/Psych: Postoperative day #1 C2 hemilaminectomy, C3 through 5 lamina plasty secondary to cervical stenosis, spinal stenosis by Dr. Victor Acute toxic metabolic encephalopathy Quadriplegia Severe cervical spinal cord stenosis, with acute spinal cord injury MRI C-spine 09/15: There appears to be focal severe spinal canal stenosis at C4- 5. There is increased signal within the body of the spinal cord at this level most likely representing some myelomalacia. Moderate diffuse broad-based bulging at C3-4 with some mild increased signal in the spinal cord at this level. Moderate spinal canal stenosis at C6-C7 Bilateral facet arthritis at multiple levels. Extensive primary degenerative changes with disc degeneration and disc space narrowing throughout the entire cervical spine. Severe quadriplegia of the upper and lower extremities with some preserved residual sensory function. Neurosurgery Dr. Victor. Poor chance of neurological recovery for him Neurology Dr. Carvalho, discussed with neurosurgery today. Per his recommendations decrease to methylprednisolone succinate to 40 mg IV every 6 hours starting 09/20 with goal to rapidly taper off. Previously on 250 mg every 6 hours started 09/[address] 08/23: 2 questionable tiny focal hemorrhages. MRI of brain 08/26 chronic small vessel ischemic and atrophic changes CT brain 09/05 revealed bilateral maxillary sinusitis. No other acute finding EEG 09/03 revealed severe encephalopathy. No epileptiform activity Acetaminophen 650 mg by tube every 6 hours as needed fever Oxycodone 5 mg every 4 hours as needed pain 1 through 5 Morphine sulfate 2 mg IV every 4 hours as needed pain 6 -10. PT/OT 1800 crystalloid. 300 EBL. 300 urine output. Tolerated procedure well. Received ampicillin/sulbactam and vancomycin intraoperatively. Postoperative management per neurosurgery [place] posterior neck -40 cc serosanguineous Discussed with neurosurgery. CV: Uncontrolled hypertension septic shock- resolved Atherosclerotic coronary artery disease Atrial fibrillation Elevated troponin downward trend Fluid overload We will give 1 dose of acetazolamide 250 mg IV 1 now. Discontinue furosemide Amiodarone Discontinued 09/07 secondary to bradycardia and pauses Continue metoprolol 25 mg p.o. q8h Continue digoxin 0.125 mg daily.. 0.8 recheck level in a.m. 09/21 (Home medication is NITRENDIPINE 10 mg by mouth daily) Currently off all vasopressors, hypertensive Resp: Acute hypoxic hypercapnic respiratory failure COPD with exacerbation/Emphysema Trach site infection Bilateral pleural effusion/status post chest tube right-sided transudative in nature. Chest tube removed 09/04 Multiple bilateral pulmonary masses vs infiltrate, RML mass vs consolidation Pulmonary edema PRVC 16/550/1.03/24/49 Ventilator bundle Continue IV methylprednisolone succinate at increased dose as above for acute spinal cord injury, continue inhaled budesonide 0.5/2 1 inhalation twice daily Albuterol/ipratropium aerosols every 4 hours with albuterol aerosols every 2 hours as needed dyspnea CT pulmonary angiogram revealed 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 Right middle lobe 2.7 x 2.2 x 7's. Spiculated. Left lingula is 3.4 x 3.20 cm. Underlying pronounced emphysematous type changes throughout lung larios. Right pleural effusion. CT thorax 09/08 revealed multiple areas of consolidation bilaterally. Prior granulomatous disease. Focal consolidation or mass in the right middle lobe that appears unchanged. Lung mass biopsied on August 28 -results - CHRONIC INFLAMMATORY AND REACTIVE FIBROBLASTIC TISSUE CONTAINING ENTRAPPED BENIGN EPITHELIUM reconsult IR 09/08 for repeat biopsy Followed by Dr. Hardy/pulmonology. Reconsulted 09/08, recommended repeat CT in 4 weeks. Hold off the IR guided biopsy time due to unstable respiratory status, neuro status s/p percutaneous tracheostomy 09/08 ([place]). Piperacillin/tazobactam and vancomycin for trach site infection. May remove trach sutures Status post thoracentesis left side 09/09 with 1 L fluid removed. No evidence of infection GI: Hypoalbuminemia C. difficile colitis s/p PEG 09/11. Tolerating tube feeds with Glucerna 1.5 at 55 cc an hour, free water flushes 200 cc every 6 hours Lansoprazole for GI prophylaxis Lactulose 30 cc twice daily for bowel regimen/hyperammonemia P.o. vancomycin 250 every 6 hours for C. difficile : Urinary retention, possible urinary stricture Acute kidney injury Maintain Larson catheter. Monitor urine output, Accurate I's and O's significant difficulty due to obstruction which may be urethral stricture which prevented serial i/o. replaced Larson catheter. Avoid nephrotoxic drugs Endo: Diabetes mellitus Hyperglycemia History of gout Sliding scale insulin with NovoLog high regimen to maintain euglycemia Currently on insulin detemir 15 units subcu twice daily Holding home medications of allopurinol 300 mg daily and colchicine 0.6 mg as needed Holding home medications of metformin 500 mg twice daily Heme: Leukocytosis Normocytic anemia Monitor CBC daily. Follow trends Coags within normal limits ID: Severe sepsis Trach site infection Healthcare associated pneumonia C. difficile colitis Appreciate ID input. Discontinue IV vancomycin, IV piperacillin/tazobactam switch to ampicillin/sulbactam by ID on 09/19. Continue fluconazole 200 mg daily and p.o. vancomycin 250 milligrams by tube 4 times daily Status post bronchoscopy 09/03 cultures negative Blood culture from 08/20/ 08/26 no growth to date Sputum 09/05 no growth Influenza a and B negative 09/07 Bronchial wash negative FEN: Hypernatremia Hypopotassemia Quarter normal saline DCd Replace electrolytes as clinically indicated per ICU electrolyte protocol. Received 50 milliequivalents potassium chloride today Monitor CMP On free water 200 every 6 MSK: Elevated BMI PT evaluate and treat Weight loss encouraged Access Peripheral IV. Central line if indicated. Discontinue arterial line placed 09/19 in OR on 09/20. Prophylaxis -GI -lansoprazole.. DVT -SCD/heparin subcutaneous 5000 units 3 times a day. No signs of bleeding on MRI brain Level 2 follow-up
[2017-09-20] MEDS ORDERED: acetaZOLAMIDE Inj 250 MG in Sodium Chlor 0.9% Inj 50 ML IV.SIG SCH (08:40)
[2017-09-20] MEDS: Insulin Detemir Inj 1,000 UNIT/10 ML Vial SQ SCH ×2 (08:52→21:45)
[2017-09-20] MEDS: Morphine Inj 4 MG/ML Vial IV.PUSH PRN ×2 (08:53→19:03)
[2017-09-20] MEDS: Potassium Chlor 20 mEq Premix 20 MEQ/100 ML PIGGYBACK IV.SIG PRN ×2 (08:56→14:38)
[2017-09-20] MEDS: acetaZOLAMIDE Inj 250 MG in Sodium Chlor 0.9% Inj 50 ML IV.SIG SCH ×2 (09:07→21:38)
--- NOTE | 2017-09-20 10:38 | P.PNNS ---
Subjective Interval history: Patient intubated Physical Exam Vital signs: Vital Signs 09/19/17 11:01 09/19/17 12:00 09/19/17 14:52 Temperature 98.6 F Pulse Rate 78 73 Respiratory Rate 22 20 Blood Pressure 154/76 H Pulse Oximetry 100 09/19/17 20:12 09/19/17 20:15 09/19/17 22:00 Temperature 97.4 F L Pulse Rate 76 78 Respiratory Rate 16 16 Blood Pressure 123/62 Pulse Oximetry 98 98 09/20/17 00:00 09/20/17 00:03 09/20/17 01:36 Temperature 97.7 F Pulse Rate 108 H 82 Respiratory Rate 21 16 16 Blood Pressure 156/61 H Pulse Oximetry 94 L 95 94 L 09/20/17 02:00 09/20/17 04:00 09/20/17 04:32 Temperature 97.8 F Pulse Rate 88 98 H 94 H Respiratory Rate 19 17 Blood Pressure 156/61 H Pulse Oximetry 95 96 09/20/17 09:27 Temperature Pulse Rate 85 Respiratory Rate 16 Blood Pressure Pulse Oximetry 96 Intake & Output 09/19/17 09/20/17 09/20/17 18:59 06:59 18:59 Intake Total 545 / 545 4301 / 4301 Output Total 750 / 750 1840 / 1840 Balance -205 / -205 2461 / 2461 Weight 78.4 kg Intake: IV 425 / 425 200 / 200 Unasyn Inj 3 GM In NS Inj 100 200 / 200 200 / 200 ML @ 200 mls/hr IV.SIG Q6H MICHELET Rx#:[id number] KCl 10 mEq Premix Inj 10 meq In 200 / 200 100 ml @ 100 mls/hr IV.SIG Q1H MICHELET Rx#:[id number] Diamox Inj 250 MG In NS Inj 50 25 / 25 ML @ 100 mls/hr IV.SIG ONCE ONE Rx#:[id number] Tube Feeding 101 / 101 Tube Irrigant 120 / 120 Water Bolus Amount 400 / 400 Anesthesia Amount 3600 / 3600 Output: Stool 200 / 200 Estimated Blood Loss 600 / 600 Urine Amount (Catheter) 750 / 750 1000 / 1000 Indwelling Urethral Catheter 750 / 750 1000 / 1000 Wound Drainage 40 / 40 # 1 Posterior Neck [place] Drain 40 / 40 Other: Date of Last Bowel Movement 09/18/17 09/18/17 Narrative: Patient remains intubated on respirator Tends to move the left hand and both feet to stimulus - Urinary Catheter Management Indwelling Urethral Catheter Cath placed during this visit: yes Reason for continuing: Other continuation reason Insertion date: 08/27/17 Insertion time: 17:00 Assessment and Plan - Plan Patient remained stable. Is intubated. Neurological exam is unchanged from previous Plan is to continue close support and monitoring
[2017-09-20] MEDS ORDERED: Potassium Chloride 20 MEQ Pwd Pkt NG/OG ONE (18:00)
[2017-09-21] MEDS: Metoprolol Tartrate 25 MG Tablet PO SCH (00:49)
[2017-09-21] MEDS: Oral Hygiene Kit OROPHARYNG SCH ×4 (00:49→17:10)
[2017-09-21] MEDS: Artificial Tears Opth Drops 15 ML Bottle EACH EYE SCH ×4 (00:52→22:00)
[2017-09-21] MEDS: Insulin NovoLOG Aspart Correctional Sugar Inj SQ SCH ×6 (01:58→20:45)
[2017-09-21] MEDS: Ampicillin/Sulbactam Inj 3 GM in Sodium Chloride 0.9% Inj 100 ML IV.SIG SCH ×4 (03:44→22:00)
[2017-09-21] MEDS: Chlorhexidine Gluconate 2% 1 Pack (2 Cloths) TOPICAL SCH (04:54)
[2017-09-21 04:56] LABS: Baso % (Auto) 0.1 % (0.0-2.0); Hematocrit 28.8 % (39.0-51.0); Hemoglobin 9.3 gm/dL (13.0-17.0); Lymph # (Auto) 0.3 th/mm3 (1.0-4.8); Lymph % (Auto) 1.3 % (9.0-44.0); Mean Corpuscular HGB Conc 32.3 % (32.0-36.0); Mean Corpuscular Volume 89.8 fL (80.0-100.0); Mono # (Auto) 1.2 th/mm3 (0.0-0.9); Neut # (Auto) 21.7 th/mm3 (1.8-7.7); Neut % (Auto) 93.6 % (16.0-70.0); Platelet Count 223 th/mm3 (150-450); Red Cell Distribution Width 16.1 % (11.6-17.2); White Blood Count 23.2 th/mm3 (4.0-11.0)
[2017-09-21 05:29] LABS: Alanine Aminotransferase 28 U/L (12-78); Albumin 1.9 g/dL (3.4-5.0); Anion Gap 5 meq/L (5-15); Aspartate Aminotransferase 14 U/L (15-37); Blood Urea Nitrogen 53 mg/dL (7-18); Carbon Dioxide 35.7 meq/L (21.0-32.0); Chloride 108 meq/L (98-107); Glomerular Filtration Rate Greater Than 89 mL/min (>89); Glucose,Random 89 mg/dL (74-106); Magnesium 2.7 mg/dL (1.5-2.5); Phosphorus 2.9 mg/dL (2.5-4.9); Potassium 3.7 meq/L (3.5-5.1); Sodium 149 meq/L (136-145)
[2017-09-21 05:45] LABS: Alkaline Phosphatase 100 U/L (45-117); Digoxin 0.5 ng/mL (0.8-2.0); Total Protein 6.1 g/dL (6.4-8.2)
[2017-09-21] MEDS: MethylPREDNISolone Sod Succinate Inj 40 MG/ML Vial IV.PUSH SCH ×3 (06:15→20:47)
[2017-09-21] MEDS ORDERED: Mineral Oil Liq 30 ML UDC PO ONE (07:55)
[2017-09-21] MEDS ORDERED: Potassium Chloride 20 MEQ Pwd Pkt NG/OG ONE (07:57)
--- NOTE | 2017-09-21 07:59 | P.PNCC ---
Subjective Subjective Remarks/Hospital Course: This is a 77-year-old Vietnamese male/Mandarin speaking only. Date of admission 08/21/2017. Date of consultation 08/23/2017. Past medical history is documented as hypertension, gout and diabetes mellitus. He is on no home medications. He does have remote history of tuberculosis 10 years ago. He quit tobacco use 20 years ago. He presented to [facility] on 08/21/2017 with a 3-4 days of intermittent pain in this region that acutely acutely worsened on 08/20 . They state the pain is in the right upper quadrant and radiates to the upper thorax and around his back. Hospital workup included a CT pulmonary angiogram which revealed bilateral emphysema. Multiple bilateral pulmonary nodules present with the largest in the right lung measuring 2.8 cm and the largest in the left lung measuring 2.6 cm. Severe compressive atelectasis in the right lower lobe. Moderate-sized pulmonary effusion. Pleural thickening in the anterior inferior hemothorax. Right paratracheal lymph node 15 mm. 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 No lytic bone lesions. Also noted significant coronary artery and aortic atherosclerotic calcifications. Patient was evaluated by hematology. Recommended lung biopsy when stable. She has become increasingly short of breath and was transferred from a [facility] to [facility] at 70%. Patient became less responsive and we were consulted. Patient required intubation/central line placement is currently having a right pigtail catheter placed to remove fluid from right lung. 08/24: hypotensive this AM requiring levophed at 8 mcg/min. drained 600cc of serosanguinous fluid out of chest tube. responded successfully to straight-leg challenge. intubated, sedated. remains very critically ill. 08/25: Afebrile. Off all antihypertensives and vasopressin. Currently normal saline at 100 cc an hour. On propofol and fentanyl drips. 08/26: Afebrile. No tonsillar creatinine currently at 20 cc an hour. Remains on increased propofol drip at 40 mcg/kg/min secondary to severe agitation overnight and on attempted spontaneous breathing trials. Will try dexmedetomidine attempt to wean today. 08/27: Worsening lung infiltrates associated with hydration. Afebrile. Known diastolic dysfunction. He appears to be exquisitely sensitive to fluid balance. Presently converting to Precedex and will try spontaneous breathing trials. 08/28: Continued worsening bilateral lung infiltrates. IV fluid has been stopped yesterday, will add additional diuretics. Diffusion gradient worsened, unable to wean from ventilator. 08/29: Mild improvement in lung infiltrates after diuresis without harming renal function. Remains ventilator dependent. Biopsy yesterday, results pending. 08/30: Worsening gas exchange with deteriorating diffusion capacity and requirements for increased inspired oxygen concentration. This all despite 2 L diuresis. Await pathology results. 08/31: Lung infiltrates resolving with diuresis. Continues to behave like diastolic heart failure. Contraction alkalosis is developing will add a carbonic anhydrase inhibitor for a couple of days. T-max 100.8 but for the most part he has been afebrile. Lung mass does appear to be a malignancy. Agree with attempt to rebiopsy at some point. We will continue to diuresis until his kidneys squeak. At 7-10 days of antibiotics it may be best to stop treatment and reculture for fevers. I will defer to the pulmonary service. 09/01: remains intubated and sedated. continues to fail any weaning attempts. consulted palliative to assist in goals of care: may need tracheostomy for further aggressive care. 09/02: palliative meeting with family again today. no improvements. it has been greater than 10 days of full empiric antibiotics: will discontinue and re- culture for fever. 09/03: chest tube on water seal with minimal output. cxr unchanged. CT removed today on my eval. no other changes or improvements. unlikely to have favorable outcome. quite hypercarbic despite full vent support: will make changes to ventilation to assist with hypercarbic. 09/04: Remains sedated, orally intubated on mechanical ventilation. 09/05: Remains sedated, orally intubated on mechanical ventilation. Failed CPAP trials yesterday. 09/06: Sedated, arousable, orally intubated on mechanical ventilation. Failed CPAP trials yesterday. Family wishes to continue aggressive care and desire trach and PEG. 09/07: T-max 100.3. One bowel movement yesterday. Failed CPAP trials yesterday. OG tube plugged overnight and able to place new feeding tube at the present time. We will switch all medications to IV at the present time including amiodarone drip at 0.5 mg/min. Check digoxin level prior to resuming IV. 09/08: T-max 99.2. Currently afebrile. One bowel movement overnight. Plan for percutaneous tracheostomy today. GI consult for PEG placement. CT chest revealed small bilateral pleural effusions. Persistent right middle lobe mass which we will consult IR again for rebiopsy. Will ask pulmonary to see again 09/09: Remains on full vent support more critical today increasing oxygen requirement FiO2 at 65 of have increase PEEP to 10 to attempt wean oxygen. Air entry markedly diminished bilaterally. Chest x-ray shows bilateral prominent interstitial infiltrates. Fluid up by approximately 10 kg. I will discontinue half-normal saline. Lasix 40 mg IV 1 09/10: Patient remains critical showing agonal breathing on the ventilator. Bilateral coarse breath sounds. Chest x-ray shows bilateral patchy infiltrates improved left effusion after thoracentesis and removal of 1 L of fluid. However FiO2 requirement remains high at 65%. UO 1.5L in 24 hours. Lab work pending. IV steroids started for probable COPD exacerbation given history of smoking 09/11: Remains critical but slightly more stable. Breathing pattern has improved and oxygenation has improved after starting IV steroids for COPD exacerbation and thoracentesis on 09/09/2017. Currently FiO2 down to 50%, PEEP at 10. We will further wean. Sodium increased to 151 start quarter normal saline, increase Lasix. Family wished to proceed with full code. PEG today 09/12: Remains intubated sedated with propofol. Urine output 1.8 L. BUN/ creatinine slightly increased today 72/1.34. Will reduce Lasix dose also reduce Solu-Medrol. Vent dyssynchrony has improved but FiO2 remains high at 55% 09/13: Off all sedation for 24 hours. Apparently patient notes has had one family is at bedside asking questions. BUN/creatinine slightly improved 71/ 1.14 from 72/1.34. WBC count slightly improved to 20.7. FiO2 at 45% chest x- ray shows some interval improvement. Also Na improved to 147 09/14: Remains intubated off sedation. Slightly tachypneic on pressure support . Urine output approximately 1500 mL in 24 hours 09/15: Patient clearly more awake today seems to understand some of the commands. Concern about quadriparesis patient is not able to withdrawal to pain 4, even though it appears he does feel the pain. MRI of the C-spine ordered. Neurology consulted. Otherwise BUN/creatinine slightly improved 09/16: Patient remains quadriparetic, slight movement of the left upper extremity. MRI of the C-spine shows focal severe spinal canal stenosis at C4-5 , with increased signal within the body of the spinal cord at this level most likely representing some myelomalacia. Moderate diffuse broad-based bulging at C3-4 with some mild increased signal in the spinal cord at this level. Moderate spinal canal stenosis at C6-C7. Also there is evidence of tracheostomy site infection. Explained MRI findings to son and patient's using electronic forming and assembling supervisor. Discussed with Dr. Carvalho. Increase Solu-Medrol to 250 mg IV every 6 hours. Consult neurosurgery 09/17: Remains septic, remains quadriplegic. Slight movements of the left upper extremity noted. C. difficile positive p.o. vancomycin added by ID yesterday. Appreciate input from Dr. Victor. Patient hs severe upper cervical stenosis with myelopathy and resultant SCI/severe quadriplegia of the upper and lower extremities. Prognosis very poor per neurosurgery 09/18: Afebrile. Tube feeds are at goal. No change in neurological status. Left upper extremity movement only. 09/19: Resting comfortably in bed in no acute distress. Noted able to squeeze left hand in slightly squeeze right hand. Will move bilateral lower extremities slightly to command. Positive BM. 09/20: Status post C2 hemilaminectomy, C3 through [address] Victor yesterday. Tolerated procedure well. Restarting tube feeding today. Verbalizing words and does move left upper extremity spontaneously. SUBJECTIVE: 09/21: Afebrile. Neurological unchanged overnight. No bowel movement since 09/18. Tolerating tube feeds at goal. Discussed with care plan via site interpreter yesterday and she expressed understanding. Objective Vital Signs / I&O: Vital Signs 09/20/17 08:00 09/20/17 09:27 09/20/17 11:47 Temperature 97.7 F Pulse Rate 96 H 85 87 Respiratory Rate 20 16 15 Blood Pressure 168/66 H Pulse Oximetry 94 L 96 09/20/17 12:00 09/20/17 15:53 09/20/17 16:00 Temperature 98.4 F 98.7 F Pulse Rate 82 95 H 96 H Respiratory Rate 15 18 20 Blood Pressure 146/74 H 159/81 H Pulse Oximetry 95 96 96 09/20/17 20:00 09/20/17 20:28 09/21/17 00:00 Temperature 98.8 F 99.1 F Pulse Rate 97 H 89 98 H Respiratory Rate 18 16 16 Blood Pressure 169/85 H 170/80 H Pulse Oximetry 98 95 97 09/21/17 00:53 09/21/17 03:29 09/21/17 04:00 Temperature 99 F Pulse Rate 99 H 89 95 H Respiratory Rate 17 16 Blood Pressure 149/77 H Pulse Oximetry 94 L 97 96 09/21/17 05:05 Temperature Pulse Rate 96 H Respiratory Rate Blood Pressure Pulse Oximetry Intake & Output 09/20/17 09/21/17 09/21/17 18:59 06:59 18:59 Intake Total 1380 / 1380 3036 / 3036 Output Total 1610 / 1610 1655 / 1655 Balance -230 / -230 1381 / 1381 Weight 82.6 kg Intake: IV 325 / 325 100 / 100 Unasyn Inj 3 GM In NS Inj 100 200 / 200 100 / 100 ML @ 200 mls/hr IV.SIG Q6H MICHELET Rx#:[id number] KCl 20 mEq Premix Inj 20 meq In 100 / 100 100 ml @ 50 mls/hr IV.SIG Q2H PRN Rx#:[id number] Diamox Inj 250 MG In NS Inj 50 25 / 25 ML @ 100 mls/hr IV.SIG Q12HR MICHELET Rx#:[id number] Tube Feeding 555 / 555 676 / 676 Tube Irrigant 100 / 100 60 / 60 Water Bolus Amount 400 / 400 400 / 400 Anesthesia Amount 1800 / 1800 Output: Urine 850 / 850 Stool 50 / 50 150 / 150 Estimated Blood Loss 300 / 300 Urine Amount (Catheter) 700 / 700 1200 / 1200 Indwelling Urethral Catheter 700 / 700 1200 / 1200 Wound Drainage 10 / 10 5 / 5 # 1 Posterior Neck [place] Drain 10 10 5 / 5 Other: Other Intake Source Saline Solution Saline Solution Date of Last Bowel Movement 09/18/17 09/18/17 Result Diagrams: 09/21/17 04:12 09/21/17 04:12 Other Results: Microbiology 09/16/17 16:55 Blood - Peripheral Aerobic Blood Culture - Preliminary No growth in 4 days 09/16/17 16:55 Blood - Peripheral Anaerobic Blood Culture - Preliminary No growth in 4 days 09/16/17 16:45 Blood - Peripheral Aerobic Blood Culture - Preliminary No growth in 4 days 09/16/17 16:45 Blood - Peripheral Anaerobic Blood Culture - Preliminary No growth in 4 days 09/15/17 22:30 Sputum - Endotracheal Gram Stain - Final 09/15/17 22:30 Sputum - Endotracheal Sputum Culture - Final Heavy growth normal respiratory tom 09/16/17 09:30 Wound - Neck Gram Stain - Final 09/16/17 09:30 Wound - Neck Wound Culture - Final Imaging: ITS Impressions Cervical Spine MRI 09/15/17 00:00 CONCLUSION: 1. There appears to be focal severe spinal canal stenosis at C4-5. There is increased signal within the body of the spinal cord at this level most likely representing some myelomalacia. 2. Moderate diffuse broad-based bulging at C3-4 with some mild increased signal in the spinal cord at this level. 3. Moderate spinal canal stenosis at C6-C7 4. Bilateral facet arthritis at multiple levels. 5. Extensive primary degenerative changes with disc degeneration and disc space narrowing throughout the entire cervical spine. Chest X-Ray 09/16/17 06:00 CONCLUSION: Increasing partially consolidated infiltrates left midlung. Chest X-Ray 09/17/17 06:00 CONCLUSION: Improving but persistent interstitial infiltrate left midlung. Cervical Spine X-Ray 09/19/17 00:00 CONCLUSION: Surgical hardware noted posteriorly at the C3-C5 levels. Chest X-Ray 09/19/17 06:00 CONCLUSION: No significant change. Objective Remarks: GENERAL: 77-year-old male currently ventilated via trach, arousable but not able to move right upper/bilateral lower extremity's. Slight movement left upper extremity SKIN: Warm and dry. No rash HEAD: Atraumatic. Normocephalic. EYES: Pupils equal and round about 2 mm bilaterally reactive. No scleral icterus. No injection or drainage. ENT: No nasal bleeding or discharge. Mucous membranes dry. NECK: Trachea midline. Trach site erythematous infected appearing with foul smelling discharge. Elba J collar place with 1 [place] CARDIOVASCULAR: Heart rate well controlled now. S1, S2 no S4. Without murmur. No JVD LUNGS: Coarse rhonchorous breath sounds appreciated bilaterally. Positive end expiratory wheeze. GASTROINTESTINAL: Abdomen soft, non-tender, nondistended. No guarding. MUSCULOSKELETAL: Extremities without significant peripheral edema. No obvious deformities. NEUROLOGICAL: Off all sedation. Eyes spontaneously open, appears to understand verbal commands, moves his head side to side. Able to extend left wrist strength approximately 3 out of 5.. Right upper extremity slightly squeezed hand. Slight movement to command on right lower extremity this a.m. Sensation withdrew to noxious stimuli bilateral feet this a.m. Assessment and Plan - Assessment and Plan Plan: A/P Assessment and Plan Neuro/Psych: Postoperative day #1 C2 hemilaminectomy, C3 through 5 lamina plasty secondary to cervical stenosis, spinal stenosis by Dr. Victor Acute toxic metabolic encephalopathy Quadriplegia Severe cervical spinal cord stenosis, with acute spinal cord injury MRI C-spine 09/15: There appears to be focal severe spinal canal stenosis at C4- 5. There is increased signal within the body of the spinal cord at this level most likely representing some myelomalacia. Moderate diffuse broad-based bulging at C3-4 with some mild increased signal in the spinal cord at this level. Moderate spinal canal stenosis at C6-C7 Bilateral facet arthritis at multiple levels. Extensive primary degenerative changes with disc degeneration and disc space narrowing throughout the entire cervical spine. Severe quadriplegia of the upper and lower extremities with some preserved residual sensory function. Neurosurgery Dr. Victor. Poor chance of neurological recovery for him Neurology Dr. Carvalho, discussed with neurosurgery today. Per his recommendations decrease to methylprednisolone succinate to 40 mg IV every 8 hours starting 09/20 with goal to rapidly taper off. Will decrease to 40 mg twice daily today 09/21. Previously on 250 mg every 6 hours started 09/[address] 08/23: 2 questionable tiny focal hemorrhages. MRI of brain 08/26 chronic small vessel ischemic and atrophic changes CT brain 09/05 revealed bilateral maxillary sinusitis. No other acute finding EEG 09/03 revealed severe encephalopathy. No epileptiform activity Acetaminophen 650 mg by tube every 6 hours as needed fever Oxycodone 5 mg every 4 hours scheduled Morphine sulfate 2 mg IV every 4 hours as needed pain 6 -10. PT/OT 1800 crystalloid. 300 EBL. 300 urine output. Tolerated procedure well. Received ampicillin/sulbactam and vancomycin intraoperatively. Postoperative management per neurosurgery [place] posterior neck -15 cc serosanguineous Discussed with neurosurgery. CV: Uncontrolled hypertension septic shock- resolved Atherosclerotic coronary artery disease Atrial fibrillation Elevated troponin downward trend Fluid overload We will give 2 doses of acetazolamide 250 mg IV 1 today. Discontinue furosemide Amiodarone Discontinued 09/07 secondary to bradycardia and pauses Continue metoprolol 25 mg p.o. q8h but increase to 50 mg twice daily Continue digoxin 0.125 mg daily.. 0.5 recheck level in a.m. 09/22. Will give 0.25 mg 1 at 1800 today (Home medication is NITRENDIPINE 10 mg by mouth daily) Currently off all vasopressors, hypertensive Resp: Acute hypoxic hypercapnic respiratory failure COPD with exacerbation/Emphysema Trach site infection Bilateral pleural effusion/status post chest tube right-sided transudative in nature. Chest tube removed 09/04 Multiple bilateral pulmonary masses vs infiltrate, RML mass vs consolidation Pulmonary edema PRVC 16/550/1.03/24/49 Ventilator bundle Continue IV methylprednisolone succinate at increased dose as above for acute spinal cord injury, continue inhaled budesonide 0.5/2 1 inhalation twice daily Albuterol/ipratropium aerosols every 4 hours with albuterol aerosols every 2 hours as needed dyspnea CT pulmonary angiogram revealed 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 Right middle lobe 2.7 x 2.2 x 7's. Spiculated. Left lingula is 3.4 x 3.20 cm. Underlying pronounced emphysematous type changes throughout lung larios. Right pleural effusion. CT thorax 09/08 revealed multiple areas of consolidation bilaterally. Prior granulomatous disease. Focal consolidation or mass in the right middle lobe that appears unchanged. Lung mass biopsied on August 28 -results - CHRONIC INFLAMMATORY AND REACTIVE FIBROBLASTIC TISSUE CONTAINING ENTRAPPED BENIGN EPITHELIUM reconsult IR 09/08 for repeat biopsy Followed by Dr. Hardy/pulmonology. Reconsulted 09/08, recommended repeat CT in 4 weeks. Hold off the IR guided biopsy time due to unstable respiratory status, neuro status s/p percutaneous tracheostomy 09/08 ([place]). Piperacillin/tazobactam and vancomycin for trach site infection. May remove trach sutures Status post thoracentesis left side 09/09 with 1 L fluid removed. No evidence of infection GI: Hypoalbuminemia C. difficile colitis s/p PEG 09/11. Tolerating tube feeds with Glucerna 1.5 at 55 cc an hour, free water flushes 300 cc every 6 hours Lansoprazole for GI prophylaxis Lactulose 30 cc twice daily for bowel regimen/hyperammonemia P.o. vancomycin 250 every 6 hours for C. difficile : Urinary retention, possible urinary stricture Acute kidney injury Maintain Larson catheter. Monitor urine output, Accurate I's and O's significant difficulty due to obstruction which may be urethral stricture which prevented serial i/o. replaced Larson catheter. Avoid nephrotoxic drugs Endo: Diabetes mellitus Hyperglycemia History of gout Sliding scale insulin with NovoLog high regimen to maintain euglycemia Currently on insulin detemir 8 units subcu twice daily Holding home medications of allopurinol 300 mg daily and colchicine 0.6 mg as needed Holding home medications of metformin 500 mg twice daily Heme: Leukocytosis Normocytic anemia Monitor CBC daily. Follow trends Coags within normal limits ID: Severe sepsis Trach site infection Healthcare associated pneumonia C. difficile colitis Appreciate ID input. Discontinue IV vancomycin, IV piperacillin/tazobactam switch to ampicillin/sulbactam by ID on 09/19. Continue fluconazole 200 mg daily and p.o. vancomycin 250 milligrams by tube 4 times daily Status post bronchoscopy 09/03 cultures negative Blood culture from 08/20/ 08/26 no growth to date Sputum 09/05 no growth Influenza a and B negative 09/07 Bronchial wash negative FEN: Hypernatremia Quarter normal saline with 20 mEq KCl 1 today. Replace electrolytes as clinically indicated per ICU electrolyte protocol. Received 20 milliequivalents potassium chloride today Monitor CMP On free water 300 every 6 MSK: Elevated BMI PT evaluate and treat Weight loss encouraged Access Peripheral IV. Central line if indicated. Discontinue arterial line placed 09/19 in OR on 09/20. Prophylaxis -GI -lansoprazole.. DVT -SCD/heparin subcutaneous 5000 units 3 times a day. No signs of bleeding on MRI brain Level 2 follow-up
[2017-09-21] MEDS: acetaZOLAMIDE Inj 250 MG in Sodium Chlor 0.9% Inj 50 ML IV.SIG SCH ×2 (08:47→20:41)
[2017-09-21] MEDS: Chlorhexidine 0.12% Oral Kit 15 ML UDC SWISH-SPIT SCH ×2 (08:50→20:41)
[2017-09-21] MEDS: Insulin Detemir Inj 1,000 UNIT/10 ML Vial SQ SCH (08:51)
[2017-09-21] MEDS: Beneprotein Powder Packet G-TUBE SCH ×3 (08:51→17:10)
[2017-09-21] MEDS: Metoprolol Tartrate 50 MG Tablet PO SCH ×2 (08:52→20:39)
[2017-09-21] MEDS: Senna/Docusate Sodium 8.6/50 MG Tablet PO SCH ×2 (08:53→20:48)
[2017-09-21] MEDS ORDERED: Potassium Chloride Inj 20 MEQ, Sodium Chloride 23.4% Inj 38.5 MEQ in Water for Inj, Ste... IV.CONT SCH (09:00)
[2017-09-21] MEDS ORDERED: Insulin Detemir Inj 1,000 UNIT/10 ML Vial SQ SCH (09:03)
[2017-09-21] MEDS: Labetalol HCl Inj 100 MG/20 ML Vial IV.PUSH PRN (15:41)
[2017-09-21] MEDS ORDERED: Digoxin Inj 500 MCG/2 ML Ampul IV.PUSH ONE (18:00)
[2017-09-22] MEDS: Oral Hygiene Kit OROPHARYNG SCH ×4 (00:40→16:20)
[2017-09-22] MEDS: Insulin NovoLOG Aspart Correctional Sugar Inj SQ SCH ×6 (00:42→22:54)
[2017-09-22] MEDS: Chlorhexidine Gluconate 2% 1 Pack (2 Cloths) TOPICAL SCH (03:39)
[2017-09-22 04:21] LABS: Baso % (Auto) 0.2 % (0.0-2.0); Hemoglobin 8.3 gm/dL (13.0-17.0); Lymph # (Auto) 0.1 th/mm3 (1.0-4.8); Lymph % (Auto) 0.7 % (9.0-44.0); Mean Corpuscular HGB Conc 31.9 % (32.0-36.0); Mean Corpuscular Volume 90.9 fL (80.0-100.0); Mean Platelet Volume 8.2 fL (7.0-11.0); Mono # (Auto) 0.4 th/mm3 (0.0-0.9); Mono % (Auto) 1.9 % (0.0-8.0); Neut # (Auto) 19.3 th/mm3 (1.8-7.7); Neut % (Auto) 97.2 % (16.0-70.0); Platelet Count 186 th/mm3 (150-450); Red Blood Count 2.86 mil/mm3 (4.50-5.90); Red Cell Distribution Width 15.9 % (11.6-17.2); White Blood Count 19.9 th/mm3 (4.0-11.0)
[2017-09-22] MEDS: Ampicillin/Sulbactam Inj 3 GM in Sodium Chloride 0.9% Inj 100 ML IV.SIG SCH ×4 (04:24→23:27)
[2017-09-22 04:34] LABS: Alanine Aminotransferase 26 U/L (12-78); Albumin 1.8 g/dL (3.4-5.0); Anion Gap 8 meq/L (5-15); Aspartate Aminotransferase 13 U/L (15-37); Blood Urea Nitrogen 48 mg/dL (7-18); Calcium 8.2 mg/dL (8.5-10.1); Carbon Dioxide 29.8 meq/L (21.0-32.0); Chloride 108 meq/L (98-107); Glomerular Filtration Rate Greater Than 89 mL/min (>89); Glucose,Random 153 mg/dL (74-106); Magnesium 2.5 mg/dL (1.5-2.5); Phosphorus 3.4 mg/dL (2.5-4.9); Sodium 146 meq/L (136-145)
[2017-09-22] MEDS: Morphine Inj 4 MG/ML Vial IV.PUSH PRN (04:40)
--- NOTE | 2017-09-22 04:44 | XR ---
EXAM DATE: 09/22/2017 4:13 AM EDT AGE/SEX: 77 years / Male INDICATIONS: Respiratory failure. CLINICAL DATA: This is the patient's subsequent encounter. Patient reports that signs and symptoms h ave been present for 1 month and indicates a pain score of Nonresponsive. MEDICAL/SURGICAL HISTORY: . Hypertension. Diabetes mellitus type II. Emphysema. TB, Afib. None . COMPARISON: C, CHEST 1V SINGLE AP, 09/19/2017. . FINDINGS: Stable tracheostomy. Persistent mild bilateral patchy airspace disease, more prominent on the left. R edemonstration of bilateral chronic appearing pleural thickening. Cardiomediastinal contours are with in normal limits. Bony thorax is intact. CONCLUSION: 1. No significant interval change 2. Stable mild bilateral patchy airspace disease, more prominent on the left. 3. Chronic appearing bilateral pleural opacities. Electronically signed by: Leo Malave MD 09/22/2017 4:43 AM EDT
[2017-09-22 04:48] LABS: Alkaline Phosphatase 90 U/L (45-117); Digoxin 0.9 ng/mL (0.8-2.0); Total Protein 5.8 g/dL (6.4-8.2)
[2017-09-22] MEDS: Artificial Tears Opth Drops 15 ML Bottle EACH EYE SCH ×3 (05:32→23:26)
--- NOTE | 2017-09-22 08:05 | P.PNCC ---
Subjective Subjective Remarks/Hospital Course: This is a 77-year-old [place] male/Mandarin speaking only. Date of admission 08/21/2017. Date of consultation 08/23/2017. Past medical history is documented as hypertension, gout and diabetes mellitus. He is on no home medications. He does have remote history of tuberculosis 10 years ago. He quit tobacco use 20 years ago. He presented to [facility] on 08/21/2017 with a 3-4 days of intermittent pain in this region that acutely acutely worsened on 08/20 . They state the pain is in the right upper quadrant and radiates to the upper thorax and around his back. Hospital workup included a CT pulmonary angiogram which revealed bilateral emphysema. Multiple bilateral pulmonary nodules present with the largest in the right lung measuring 2.8 cm and the largest in the left lung measuring 2.6 cm. Severe compressive atelectasis in the right lower lobe. Moderate-sized pulmonary effusion. Pleural thickening in the anterior inferior hemothorax. Right paratracheal lymph node 15 mm. 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 No lytic bone lesions. Also noted significant coronary artery and aortic atherosclerotic calcifications. Patient was evaluated by hematology. Recommended lung biopsy when stable. She has become increasingly short of breath and was transferred from a [facility] to [facility] at 70%. Patient became less responsive and we were consulted. Patient required intubation/central line placement is currently having a right pigtail catheter placed to remove fluid from right lung. 08/24: hypotensive this AM requiring levophed at 8 mcg/min. drained 600cc of serosanguinous fluid out of chest tube. responded successfully to straight-leg challenge. intubated, sedated. remains very critically ill. 08/25: Afebrile. Off all antihypertensives and vasopressin. Currently normal saline at 100 cc an hour. On propofol and fentanyl drips. 08/26: Afebrile. No tonsillar creatinine currently at 20 cc an hour. Remains on increased propofol drip at 40 mcg/kg/min secondary to severe agitation overnight and on attempted spontaneous breathing trials. Will try dexmedetomidine attempt to wean today. 08/27: Worsening lung infiltrates associated with hydration. Afebrile. Known diastolic dysfunction. He appears to be exquisitely sensitive to fluid balance. Presently converting to Precedex and will try spontaneous breathing trials. 08/28: Continued worsening bilateral lung infiltrates. IV fluid has been stopped yesterday, will add additional diuretics. Diffusion gradient worsened, unable to wean from ventilator. 08/29: Mild improvement in lung infiltrates after diuresis without harming renal function. Remains ventilator dependent. Biopsy yesterday, results pending. 08/30: Worsening gas exchange with deteriorating diffusion capacity and requirements for increased inspired oxygen concentration. This all despite 2 L diuresis. Await pathology results. 08/31: Lung infiltrates resolving with diuresis. Continues to behave like diastolic heart failure. Contraction alkalosis is developing will add a carbonic anhydrase inhibitor for a couple of days. T-max 100.8 but for the most part he has been afebrile. Lung mass does appear to be a malignancy. Agree with attempt to rebiopsy at some point. We will continue to diuresis until his kidneys squeak. At 7-10 days of antibiotics it may be best to stop treatment and reculture for fevers. I will defer to the pulmonary service. 09/01: remains intubated and sedated. continues to fail any weaning attempts. consulted palliative to assist in goals of care: may need tracheostomy for further aggressive care. 09/02: palliative meeting with family again today. no improvements. it has been greater than 10 days of full empiric antibiotics: will discontinue and re- culture for fever. 09/03: chest tube on water seal with minimal output. cxr unchanged. CT removed today on my eval. no other changes or improvements. unlikely to have favorable outcome. quite hypercarbic despite full vent support: will make changes to ventilation to assist with hypercarbic. 09/04: Remains sedated, orally intubated on mechanical ventilation. 09/05: Remains sedated, orally intubated on mechanical ventilation. Failed CPAP trials yesterday. 09/06: Sedated, arousable, orally intubated on mechanical ventilation. Failed CPAP trials yesterday. Family wishes to continue aggressive care and desire trach and PEG. 09/07: T-max 100.3. One bowel movement yesterday. Failed CPAP trials yesterday. OG tube plugged overnight and able to place new feeding tube at the present time. We will switch all medications to IV at the present time including amiodarone drip at 0.5 mg/min. Check digoxin level prior to resuming IV. 09/08: T-max 99.2. Currently afebrile. One bowel movement overnight. Plan for percutaneous tracheostomy today. GI consult for PEG placement. CT chest revealed small bilateral pleural effusions. Persistent right middle lobe mass which we will consult IR again for rebiopsy. Will ask pulmonary to see again 09/09: Remains on full vent support more critical today increasing oxygen requirement FiO2 at 65 of have increase PEEP to 10 to attempt wean oxygen. Air entry markedly diminished bilaterally. Chest x-ray shows bilateral prominent interstitial infiltrates. Fluid up by approximately 10 kg. I will discontinue half-normal saline. Lasix 40 mg IV 1 09/10: Patient remains critical showing agonal breathing on the ventilator. Bilateral coarse breath sounds. Chest x-ray shows bilateral patchy infiltrates improved left effusion after thoracentesis and removal of 1 L of fluid. However FiO2 requirement remains high at 65%. UO 1.5L in 24 hours. Lab work pending. IV steroids started for probable COPD exacerbation given history of smoking 09/11: Remains critical but slightly more stable. Breathing pattern has improved and oxygenation has improved after starting IV steroids for COPD exacerbation and thoracentesis on 09/09/2017. Currently FiO2 down to 50%, PEEP at 10. We will further wean. Sodium increased to 151 start quarter normal saline, increase Lasix. Family wished to proceed with full code. PEG today 09/12: Remains intubated sedated with propofol. Urine output 1.8 L. BUN/ creatinine slightly increased today 72/1.34. Will reduce Lasix dose also reduce Solu-Medrol. Vent dyssynchrony has improved but FiO2 remains high at 55% 09/13: Off all sedation for 24 hours. Apparently patient notes has had one family is at bedside asking questions. BUN/creatinine slightly improved 71/ 1.14 from 72/1.34. WBC count slightly improved to 20.7. FiO2 at 45% chest x- ray shows some interval improvement. Also Na improved to 147 09/14: Remains intubated off sedation. Slightly tachypneic on pressure support . Urine output approximately 1500 mL in 24 hours 09/15: Patient clearly more awake today seems to understand some of the commands. Concern about quadriparesis patient is not able to withdrawal to pain 4, even though it appears he does feel the pain. MRI of the C-spine ordered. Neurology consulted. Otherwise BUN/creatinine slightly improved 09/16: Patient remains quadriparetic, slight movement of the left upper extremity. MRI of the C-spine shows focal severe spinal canal stenosis at C4-5 , with increased signal within the body of the spinal cord at this level most likely representing some myelomalacia. Moderate diffuse broad-based bulging at C3-4 with some mild increased signal in the spinal cord at this level. Moderate spinal canal stenosis at C6-C7. Also there is evidence of tracheostomy site infection. Explained MRI findings to son and patient's using electronic volcanologist. Discussed with Dr. Carvalho. Increase Solu-Medrol to 250 mg IV every 6 hours. Consult neurosurgery 09/17: Remains septic, remains quadriplegic. Slight movements of the left upper extremity noted. C. difficile positive p.o. vancomycin added by ID yesterday. Appreciate input from Dr. Victor. Patient hs severe upper cervical stenosis with myelopathy and resultant SCI/severe quadriplegia of the upper and lower extremities. Prognosis very poor per neurosurgery 09/18: Afebrile. Tube feeds are at goal. No change in neurological status. Left upper extremity movement only. 09/19: Resting comfortably in bed in no acute distress. Noted able to squeeze left hand in slightly squeeze right hand. Will move bilateral lower extremities slightly to command. Positive BM. 09/20: Status post C2 hemilaminectomy, C3 through [address] Victor yesterday. Tolerated procedure well. Restarting tube feeding today. Verbalizing words and does move left upper extremity spontaneously. SUBJECTIVE: 09/21: Afebrile. Neurological unchanged overnight. No bowel movement since 09/18. Tolerating tube feeds at goal. Discussed with care plan via surveillance system monitor yesterday and she expressed understanding. 09/23: Stable hemodynamics and acceptable gas exchange. Remains weak.Unable to wean from ventilator. Objective Vital Signs / I&O: Vital Signs 09/21/17 07:57 09/21/17 08:00 09/21/17 09:05 Temperature 98.4 F Pulse Rate 83 82 84 Respiratory Rate 16 16 Blood Pressure 170/82 H Pulse Oximetry 95 96 09/21/17 11:30 09/21/17 12:00 09/21/17 13:05 Temperature 97.8 F Pulse Rate 78 88 85 Respiratory Rate 12 15 Blood Pressure 170/90 H Pulse Oximetry 95 95 09/21/17 16:00 09/21/17 17:00 09/21/17 17:08 Temperature 98.8 F Pulse Rate 77 93 H 98 H Respiratory Rate 16 15 Blood Pressure 145/76 H Pulse Oximetry 95 95 09/21/17 19:36 09/21/17 20:00 09/21/17 21:00 Temperature 98.7 F Pulse Rate 106 H 108 H 105 H Respiratory Rate 17 16 Blood Pressure 134/63 Pulse Oximetry 97 95 09/21/17 23:59 09/22/17 00:00 09/22/17 03:56 Temperature 98.4 F Pulse Rate 69 71 80 Respiratory Rate 16 16 16 Blood Pressure 116/59 L Pulse Oximetry 97 97 98 09/22/17 04:00 Temperature 98.4 F Pulse Rate 95 H Respiratory Rate 19 Blood Pressure 170/80 H Pulse Oximetry Intake & Output 09/21/17 09/22/17 09/22/17 18:59 06:59 18:59 Intake Total 1500 / 1500 3895 / 3895 Output Total 1310 / 1310 1662 / 1662 Balance 190 / 190 2233 / 2233 Weight 83.3 kg Intake: IV 250 / 250 100 / 100 Unasyn Inj 3 GM In NS Inj 100 200 / 200 100 / 100 ML @ 200 mls/hr IV.SIG Q6H MICHELET Rx#:[id number] Diamox Inj 250 MG In NS Inj 50 50 / 50 ML @ 100 mls/hr IV.SIG Q12HR MICHELET Rx#:[id number] Tube Feeding 550 / 550 635 / 635 Tube Irrigant 100 / 100 120 / 120 Water Bolus Amount 600 / 600 600 / 600 Anesthesia Amount 1800 / 1800 Other 640 / 640 Output: Stool 600 / 600 150 / 150 Urine Amount (Catheter) 700 / 700 1500 / 1500 Indwelling Urethral Catheter 700 / 700 1500 / 1500 Wound Drainage # 1 Posterior Neck [place] Drain Other: Other Intake Source Saline Solution Date of Last Bowel Movement 09/18/17 09/18/17 Result Diagrams: 09/22/17 02:46 09/22/17 02:46 Objective Remarks: GENERAL: 77-year-old male currently ventilated via trach, responds weakly to stimulation but not able to move right upper/bilateral lower extremity's. Slight movement left upper extremity SKIN: Warm and dry. No rash HEAD: Atraumatic. Normocephalic. Eyes moderately sunken. EYES: Pupils equal and round about 2 mm bilaterally reactive. No conjunctival icterus. No injection or drainage. ENT: No nasal bleeding or discharge. Mucous membranes dry. Mouth open. NECK: Trachea midline. Trach site mildly erythematous. Around trach tube foul smelling discharge. Saxman J collar place with 1 [place] CARDIOVASCULAR: Heart rate well controlled now. S1, S2 no S4. Without murmur. No JVD LUNGS: Coarse rhonchi appreciated bilaterally. Mild expiratory wheeze. Acceptable bilateral air movement. GASTROINTESTINAL: Abdomen soft, non-tender, nondistended. No guarding. Bowel sounds are present. MUSCULOSKELETAL: Extremities without significant peripheral edema. Well perfused. NEUROLOGICAL: Off all sedation. Eyes spontaneously open, appears to understand verbal commands, moves his head side to side. Able to extend left wrist strength approximately 3 out of 5.. Right upper extremity slightly squeezed hand. Slight movement to command on right lower extremity. Assessment and Plan - Assessment and Plan Plan: A/P Assessment and Plan Neuro/Psych: Postoperative day #1 C2 hemilaminectomy, C3 through 5 lamina plasty secondary to cervical stenosis, spinal stenosis by Dr. Victor Acute toxic metabolic encephalopathy Quadriplegia Severe cervical spinal cord stenosis, with acute spinal cord injury MRI C-spine 09/15: There appears to be focal severe spinal canal stenosis at C4- 5. There is increased signal within the body of the spinal cord at this level most likely representing some myelomalacia. Moderate diffuse broad-based bulging at C3-4 with some mild increased signal in the spinal cord at this level. Moderate spinal canal stenosis at C6-C7 Bilateral facet arthritis at multiple levels. Extensive primary degenerative changes with disc degeneration and disc space narrowing throughout the entire cervical spine. Severe quadriplegia of the upper and lower extremities with some preserved residual sensory function. Neurosurgery Dr. Victor. Poor chance of neurological recovery for him Neurology Dr. Carvalho, discussed with neurosurgery today. Per his recommendations decrease to methylprednisolone succinate to 40 mg IV every 8 hours starting 09/20 with goal to rapidly taper off. Will decrease to 40 mg twice daily today 09/21. Previously on 250 mg every 6 hours started 09/[address] 08/23: 2 questionable tiny focal hemorrhages. MRI of brain 08/26 chronic small vessel ischemic and atrophic changes CT brain 09/05 revealed bilateral maxillary sinusitis. No other acute finding EEG 09/03 revealed severe encephalopathy. No epileptiform activity Acetaminophen 650 mg by tube every 6 hours as needed fever Oxycodone 5 mg every 4 hours scheduled Morphine sulfate 2 mg IV every 4 hours as needed pain -. PT/OT CV: Uncontrolled hypertension septic shock- resolved Atherosclerotic coronary artery disease Atrial fibrillation Elevated troponin downward trend Fluid overload We will give 2 doses of acetazolamide 250 mg IV 1 today. Discontinue furosemide Amiodarone Discontinued 09/07 secondary to bradycardia and pauses Continue metoprolol 25 mg p.o. q8h but increase to 50 mg twice daily Continue digoxin 0.125 mg daily.. 0.5 recheck level in a.m. 09/22. Will give 0.25 mg 1 at 1800 today (Home medication is NITRENDIPINE 10 mg by mouth daily) Currently off all vasopressors, mildly hypertensive Resp: Acute hypoxic hypercapnic respiratory failure COPD with exacerbation/Emphysema Trach site infection Bilateral pleural effusion/status post chest tube right-sided transudative in nature. Chest tube removed 09/04 Multiple bilateral pulmonary masses vs infiltrate, RML mass vs consolidation Pulmonary edema PRVC 16/550/1.03/24/49 Ventilator bundle Continue IV methylprednisolone succinate at increased dose as above for acute spinal cord injury, continue inhaled budesonide 0.5/2 1 inhalation twice daily Albuterol/ipratropium aerosols every 4 hours with albuterol aerosols every 2 hours as needed dyspnea CT pulmonary angiogram revealed 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 Right middle lobe 2.7 x 2.2 x 7's. Spiculated. Left lingula is 3.4 x 3.20 cm. Underlying pronounced emphysematous type changes throughout lung larios. Right pleural effusion. CT thorax 09/08 revealed multiple areas of consolidation bilaterally. Prior granulomatous disease. Focal consolidation or mass in the right middle lobe that appears unchanged. Lung mass biopsied on August 28 -results - CHRONIC INFLAMMATORY AND REACTIVE FIBROBLASTIC TISSUE CONTAINING ENTRAPPED BENIGN EPITHELIUM reconsult IR 09/08 for repeat biopsy Followed by Dr. Hardy/pulmonology. Reconsulted 09/08, recommended repeat CT in 4 weeks. Hold off the IR guided biopsy time due to unstable respiratory status, neuro status s/p percutaneous tracheostomy 09/08 ([place]). Piperacillin/tazobactam and vancomycin for trach site infection. May remove trach sutures Status post thoracentesis left side 09/09 with 1 L fluid removed. No evidence of infection GI: Hypoalbuminemia C. difficile colitis s/p PEG 09/11. Tolerating tube feeds with Glucerna 1.5 at 55 cc an hour, free water flushes 300 cc every 6 hours Lansoprazole for GI prophylaxis Lactulose 30 cc twice daily for bowel regimen/hyperammonemia P.o. vancomycin 250 every 6 hours for C. difficile intestinal infection : Urinary retention, possible urinary stricture Acute kidney injury Maintain Larson catheter. Monitor urine output, Accurate I's and O's significant difficulty due to obstruction which may be urethral stricture which prevented serial i/o. replaced Larson catheter. Avoid nephrotoxic drugs Endo: Diabetes mellitus Hyperglycemia History of gout Sliding scale insulin with NovoLog high regimen to maintain euglycemia Currently on insulin detemir 10 units subcu twice daily Holding home medications of allopurinol 300 mg daily and colchicine 0.6 mg as needed Holding home medications of metformin 500 mg twice daily Heme: Leukocytosis Normocytic anemia Monitor CBC daily. Follow trends Coags within normal limits ID: Severe sepsis Trach site infection Healthcare associated pneumonia C. difficile colitis Appreciate ID input. Discontinue IV vancomycin, IV piperacillin/tazobactam switch to ampicillin/sulbactam by ID on 09/19. Continue fluconazole 200 mg daily and p.o. vancomycin 250 milligrams by tube 4 times daily Status post bronchoscopy 09/03 cultures negative Blood culture from 08/20/ 08/26 no growth to date Sputum 09/05 no growth Influenza a and B negative 09/07 Bronchial wash negative FEN: Hypernatremia Quarter normal saline with 20 mEq KCl 1 today. Replace electrolytes as clinically indicated per ICU electrolyte protocol. Received 20 milliequivalents potassium chloride today Monitor CMP On free water 300 every 6, improved. MSK: Elevated BMI PT evaluate and treat Weight loss encouraged Access Peripheral IV. Central line if indicated. Discontinue arterial line placed 09/19 in OR on 09/20. Prophylaxis -GI -lansoprazole.. DVT -SCD/heparin subcutaneous 5000 units 3 times a day. No signs of bleeding on MRI brain Overall impression: This gentleman remains weak and debilitated. We are unable to wean him from a ventilator and his general condition and strength is not improving. Long-term prognosis for a meaningful recovery is quite poor. The best we can hope for is a skilled facility and chronic ventilator dependency.
[2017-09-22] MEDS: Chlorhexidine 0.12% Oral Kit 15 ML UDC SWISH-SPIT SCH ×2 (09:14→23:26)
[2017-09-22] MEDS: Senna/Docusate Sodium 8.6/50 MG Tablet PO SCH ×2 (09:15→22:50)
[2017-09-22] MEDS: Beneprotein Powder Packet G-TUBE SCH ×3 (09:15→17:08)
[2017-09-22] MEDS: Metoprolol Tartrate 50 MG Tablet PO SCH ×2 (09:17→22:51)
[2017-09-22] MEDS: Insulin Detemir Inj 1,000 UNIT/10 ML Vial SQ SCH ×2 (09:17→22:48)
[2017-09-22] MEDS: MethylPREDNISolone Sod Succinate Inj 40 MG/ML Vial IV.PUSH SCH ×2 (09:18→22:49)
--- NOTE | 2017-09-22 12:27 | P.PNID ---
Subjective Remarks: Patient is a 77-year-old male, initially admitted to the hospital August 21 complaining of some right upper quadrant pain and some chest pain. There is mention that he has a chronic cough. He was not short of breath, no nausea or vomiting or diarrhea, and no fever and chills. Evaluation revealed multiple pulmonary masses, COPD, and bilateral pleural effusion. He underwent thoracentesis, and fluid cytology did not show any malignancy. He underwent lung biopsy and that also did not show any definite evidence of malignancy. On August 23 he had increasing shortness of breath, and was transferred to the ICU. He ended up getting intubated. Since then patient has been on the vent, and has had failure to wean. He underwent tracheostomy on September 08, and PEG placement on September 11. Patient has had multiple cultures done. All his blood cultures are negative. He had pleural fluid on August 25 and September 09 and they were negative. Sputum culture August 26, September 05, and September 07 were all showing normal respiratory tom. Patient's WBC has been elevated to more than 20,000. Today his white count went up to 27.1. He has had liquid stool, and on August 15 stool for C. difficile came back positive. Patient has been noted to have some foul smelling reddish gauge secretions from his tracheostomy. He has not been febrile. Infectious disease consultation has been requested to assist in evaluation and treatment with worsening sepsis, and trach site infection. Notes reviewed Temps ok On the vent Trach site C/S normal skin tom Sputum NF Stool volume not a lot WBC decreasing Antibiotics: Unasyn Vanco po Diflucan Lines: No evidence of infection Past Medical History: Diabetes Gout Hypertension Prostate CA Allergies/Adverse Reactions: Allergies No Known Allergies Allergy (Unknown, Uncoded 08/20/17 17:57) Objective Vital Signs 09/21/17 13:05 09/21/17 16:00 09/21/17 17:00 Temperature 98.8 F Pulse Rate 85 77 93 H Respiratory Rate 16 Blood Pressure 145/76 H Pulse Oximetry 95 09/21/17 17:08 09/21/17 19:36 09/21/17 20:00 Temperature 98.7 F Pulse Rate 98 H 106 H 108 H Respiratory Rate 15 17 16 Blood Pressure 134/63 Pulse Oximetry 95 97 95 09/21/17 21:00 09/21/17 23:59 09/22/17 00:00 Temperature 98.4 F Pulse Rate 105 H 69 71 Respiratory Rate 16 16 Blood Pressure 116/59 L Pulse Oximetry 97 97 09/22/17 03:56 09/22/17 04:00 09/22/17 07:59 Temperature 98.4 F Pulse Rate 80 95 H 99 H Respiratory Rate 16 19 13 Blood Pressure 170/80 H Pulse Oximetry 98 98 09/22/17 12:00 Temperature Pulse Rate Respiratory Rate 16 Blood Pressure Pulse Oximetry 92 L Intake & Output 09/21/17 09/22/17 09/22/17 18:59 06:59 18:59 Intake Total 1500 / 1500 3895 / 3895 200 / 200 Output Total 1310 / 1310 1662 / 1662 Balance 190 / 190 2233 / 2233 200 / 200 Weight 83.3 kg Intake: IV 250 / 250 100 / 100 200 / 200 Unasyn Inj 3 GM In NS Inj 100 200 / 200 100 / 100 200 / 200 ML @ 200 mls/hr IV.SIG Q6H MICHELET Rx#:[id number] Diamox Inj 250 MG In NS Inj 50 50 / 50 ML @ 100 mls/hr IV.SIG Q12HR MICHELET Rx#:[id number] Tube Feeding 550 / 550 635 / 635 Tube Irrigant 100 / 100 120 / 120 Water Bolus Amount 600 / 600 600 / 600 Anesthesia Amount 1800 / 1800 Other 640 / 640 Output: Stool 600 / 600 150 / 150 Urine Amount (Catheter) 700 / 700 1500 / 1500 Indwelling Urethral Catheter 700 / 700 1500 / 1500 Wound Drainage # 1 Posterior Neck [place] Drain Other: Other Intake Source Saline Solution Date of Last Bowel Movement 09/18/17 09/18/17 09/16/17 16:55 Blood - Peripheral Aerobic Blood Culture - Final No growth in 5 days 09/16/17 16:55 Blood - Peripheral Anaerobic Blood Culture - Final No growth in 5 days 09/16/17 16:45 Blood - Peripheral Aerobic Blood Culture - Final No growth in 5 days 09/16/17 16:45 Blood - Peripheral Anaerobic Blood Culture - Final No growth in 5 days 09/15/17 22:30 Sputum - Endotracheal Gram Stain - Final 09/15/17 22:30 Sputum - Endotracheal Sputum Culture - Final Heavy growth normal respiratory tom Lab - Hematology Results 09/21/17 09/22/17 04:12 02:46 WBC 23.2 H 19.9 H RBC 3.20 L 2.86 L Hgb 9.3 L 8.3 L Hct 28.8 L 26.0 L MCV 89.8 90.9 MCH 29.0 29.0 MCHC 32.3 31.9 L RDW 16.1 15.9 Plt Count 223 186 MPV 8.0 8.2 Neut % (Auto) 93.6 H 97.2 H Lymph % (Auto) 1.3 L 0.7 L [place] % (Auto) 5.0 1.9 Eos % (Auto) 0.0 0.0 Baso % (Auto) 0.1 0.2 Neut # (Auto) 21.7 H 19.3 H Lymph # (Auto) 0.3 L 0.1 L [place] # (Auto) 1.2 H 0.4 Eos # (Auto) 0.0 0.0 Baso # (Auto) 0.0 0.0 WBC Differential . . Differential Comment Auto diff final Auto diff final Lab - Chemistry Results 09/20/17 09/20/17 09/21/17 17:13 21:12 00:34 Sodium Potassium Chloride Carbon Dioxide Anion Gap BUN Creatinine Estimated GFR POC Glucose 139 H 172 H 74 Random Glucose Calcium Phosphorus Magnesium Total Bilirubin AST ALT Alkaline Phosphatase Total Protein Albumin 09/21/17 09/21/17 09/21/17 04:12 04:12 07:50 Sodium 149 H Potassium 3.7 Chloride 108 H Carbon Dioxide 35.7 H Anion Gap 5 BUN 53 H Creatinine 0.71 Estimated GFR Greater than 89 POC Glucose 107 190 H Random Glucose 89 Calcium 8.0 L Phosphorus 2.9 Magnesium 2.7 H Total Bilirubin 0.4 AST 14 L ALT 28 Alkaline Phosphatase 100 Total Protein 6.1 L Albumin 1.9 L 09/21/17 09/21/17 09/21/17 12:16 16:32 19:57 Sodium Potassium Chloride Carbon Dioxide Anion Gap BUN Creatinine Estimated GFR POC Glucose 167 H 136 H 177 H Random Glucose Calcium Phosphorus Magnesium Total Bilirubin AST ALT Alkaline Phosphatase Total Protein Albumin 09/22/17 09/22/17 09/22/17 00:35 02:46 04:04 Sodium 146 H Potassium 4.0 Chloride 108 H Carbon Dioxide 29.8 Anion Gap 8 BUN 48 H Creatinine 0.62 Estimated GFR Greater than 89 POC Glucose 144 H 197 H Random Glucose 153 H Calcium 8.2 L Phosphorus 3.4 Magnesium 2.5 Total Bilirubin 0.4 AST 13 L ALT 26 Alkaline Phosphatase 90 Total Protein 5.8 L Albumin 1.8 L 09/22/17 08:23 Sodium Potassium Chloride Carbon Dioxide Anion Gap BUN Creatinine Estimated GFR POC Glucose 215 H Random Glucose Calcium Phosphorus Magnesium Total Bilirubin AST ALT Alkaline Phosphatase Total Protein Albumin Imaging: ITS Impressions Cervical Spine MRI 09/15/17 00:00 CONCLUSION: 1. There appears to be focal severe spinal canal stenosis at C4-5. There is increased signal within the body of the spinal cord at this level most likely representing some myelomalacia. 2. Moderate diffuse broad-based bulging at C3-4 with some mild increased signal in the spinal cord at this level. 3. Moderate spinal canal stenosis at C6-C7 4. Bilateral facet arthritis at multiple levels. 5. Extensive primary degenerative changes with disc degeneration and disc space narrowing throughout the entire cervical spine. Cervical Spine X-Ray 09/19/17 00:00 CONCLUSION: Surgical hardware noted posteriorly at the C3-C5 levels. Chest X-Ray 09/22/17 06:00 CONCLUSION: 1. No significant interval change 2. Stable mild bilateral patchy airspace disease, more prominent on the left. 3. Chronic appearing bilateral pleural opacities. Physical Exam: Physical Examination GENERAL: awake and focusing, tracking, on CPAP, not in respiratory distress. SKIN: Warm and dry. No generalized rash, no ecchymoses and no evidence of embolic lesions. HEAD: Atraumatic. Normocephalic. No temporal wasting, or tenderness. EYES: [place] conjunctiva. No petechia or hemorrhage. Pupils equal, round and reactive to light. Extraocular movements full and intact. No scleral icterus. No injection or drainage. EARS, NOSE AND THROAT: Nose without bleeding or purulent nasal discharge. Dry oral mucosa. NECK: Tracheostomy site ok, seems to have less drainage, and smell much improved CARDIOVASCULAR: Regular rate and rhythm. No murmurs, rubs or gallops heard RESPIRATORY: Coarse breath sounds equal bilaterally. No rales, wheezing or rhonchi ABDOMEN: Soft, non-tender, nondistended. Bowel sounds present and normoactive. No guarding. No rebound. No organomegaly. PEG site ok. EXTREMITIES: No clubbing, cyanosis. Has some nai pitting pedal edema. Well perfused and warm. NEUROLOGICAL: Awake, focusing PSYCHIATRIC: Unable to assess. LINE: No evidence of infection : [place] in place, urine looks clear Assessment and Plan - Plan IMPRESSION Sepsis, better - has worsening leukocytosis - ?HCAP - trach site infection - C diff colitis Trach site infection, procedure done 09/08 C diff colitis Respiratory failure, S/P trach Leukocytosis, improving RECOMMENDATION Stop IV Vanco Continue Unasyn and give about 7 days - end date ordered in [facility] Stop Diflucan Continue po Vanco for C diff, plan 14 days Weaning per CCM Follow CBC Monitor progress
[2017-09-22] MEDS: Labetalol HCl Inj 100 MG/20 ML Vial IV.PUSH PRN ×2 (13:46→16:17)
--- NOTE | 2017-09-22 18:23 | P.PNNS ---
Subjective Interval history: Intubated. Off sedation for examination Physical Exam Vital signs: Vital Signs 09/21/17 19:36 09/21/17 20:00 09/21/17 21:00 Temperature 98.7 F Pulse Rate 106 H 108 H 105 H Respiratory Rate 17 16 Blood Pressure 134/63 Pulse Oximetry 97 95 09/21/17 23:59 09/22/17 00:00 09/22/17 03:56 Temperature 98.4 F Pulse Rate 69 71 80 Respiratory Rate 16 16 16 Blood Pressure 116/59 L Pulse Oximetry 97 97 98 09/22/17 04:00 09/22/17 07:59 09/22/17 08:00 Temperature 98.4 F 98 F Pulse Rate 95 H 99 H 99 H Respiratory Rate 19 13 16 Blood Pressure 170/80 H 178/88 H Pulse Oximetry 98 98 09/22/17 12:00 09/22/17 16:20 Temperature 99.1 F Pulse Rate 91 H Respiratory Rate 18 17 Blood Pressure 165/66 H Pulse Oximetry 96 94 L Intake & Output 09/21/17 09/22/17 09/22/17 18:59 06:59 18:59 Intake Total 1500 / 1500 3895 / 3895 200 / 200 Output Total 1310 / 1310 1662 / 1662 Balance 190 / 190 2233 / 2233 200 / 200 Weight 83.3 kg Intake: IV 250 / 250 100 / 100 200 / 200 Unasyn Inj 3 GM In NS Inj 100 200 / 200 100 / 100 200 / 200 ML @ 200 mls/hr IV.SIG Q6H MICHELET Rx#:[id number] Diamox Inj 250 MG In NS Inj 50 50 / 50 ML @ 100 mls/hr IV.SIG Q12HR MICHELET Rx#:[id number] Tube Feeding 550 / 550 635 / 635 Tube Irrigant 100 / 100 120 / 120 Water Bolus Amount 600 / 600 600 / 600 Anesthesia Amount 1800 / 1800 Other 640 / 640 Output: Stool 600 / 600 150 / 150 Urine Amount (Catheter) 700 / 700 1500 / 1500 Indwelling Urethral Catheter 700 / 700 1500 / 1500 Wound Drainage # 1 Posterior Neck [place] Drain Other: Other Intake Source Saline Solution Date of Last Bowel Movement 09/18/17 09/18/17 09/18/17 Narrative: Patient remains intubated on respirator No eye-opening to voice. He is not responding to his family. Pupils are midrange minimally reactive. Not definitely following commands Mild withdrawal to deep pain in the right and left foot, difficult to tell if a conscious pain response or reflex type movement. Hollis's response absent bilateral No ankle clonus Plantar responses are neutral - Urinary Catheter Management Indwelling Urethral Catheter Cath placed during this visit: yes Reason for continuing: Hourly intake/output Insertion date: 08/27/17 Insertion time: 17:00 Assessment and Plan - Plan Impression: 1. Patient appears somewhat less responsive today. Remains with flaccid quadriplegia-no definite changes compared to preoperative. Plan: Continuing ventilator supportive care. Plan postoperative MRI cervical spine this week to assess for adequate spinal cord decompression and determine the degree of myelomalacia.
[2017-09-23] MEDS: Insulin NovoLOG Aspart Correctional Sugar Inj SQ SCH ×6 (01:44→23:34)
[2017-09-23] MEDS: Oral Hygiene Kit OROPHARYNG SCH ×5 (01:45→23:27)
[2017-09-23] MEDS: Labetalol HCl Inj 100 MG/20 ML Vial IV.PUSH PRN ×2 (02:09→03:04)
[2017-09-23] MEDS: Ampicillin/Sulbactam Inj 3 GM in Sodium Chloride 0.9% Inj 100 ML IV.SIG SCH ×4 (03:35→23:25)
[2017-09-23] MEDS: Chlorhexidine Gluconate 2% 1 Pack (2 Cloths) TOPICAL SCH (03:37)
[2017-09-23 04:53] LABS: Anion Gap 7 meq/L (5-15); Blood Urea Nitrogen 41 mg/dL (7-18); Calcium 7.9 mg/dL (8.5-10.1); Carbon Dioxide 30.5 meq/L (21.0-32.0); Chloride 107 meq/L (98-107); Glomerular Filtration Rate Greater Than 89 mL/min (>89); Glucose,Random 171 mg/dL (74-106); Potassium 4.2 meq/L (3.5-5.1); Sodium 144 meq/L (136-145)
[2017-09-23] MEDS: Artificial Tears Opth Drops 15 ML Bottle EACH EYE SCH ×3 (06:05→23:26)
[2017-09-23] MEDS: Beneprotein Powder Packet G-TUBE SCH ×3 (08:44→17:41)
[2017-09-23] MEDS: Chlorhexidine 0.12% Oral Kit 15 ML UDC SWISH-SPIT SCH ×2 (08:44→23:34)
[2017-09-23] MEDS: Insulin Detemir Inj 1,000 UNIT/10 ML Vial SQ SCH ×2 (08:46→23:33)
[2017-09-23] MEDS: Metoprolol Tartrate 50 MG Tablet PO SCH ×2 (08:46→23:33)
[2017-09-23] MEDS: Senna/Docusate Sodium 8.6/50 MG Tablet PO SCH ×2 (08:46→23:33)
[2017-09-23] MEDS: MethylPREDNISolone Sod Succinate Inj 40 MG/ML Vial IV.PUSH SCH ×2 (08:47→23:33)
--- NOTE | 2017-09-23 09:04 | P.PNCC ---
Subjective Subjective Remarks/Hospital Course: This is a 77-year-old [place] male/Mandarin speaking only. Date of admission 08/21/2017. Date of consultation 08/23/2017. Past medical history is documented as hypertension, gout and diabetes mellitus. He is on no home medications. He does have remote history of tuberculosis 10 years ago. He quit tobacco use 20 years ago. He presented to [facility] on 08/21/2017 with a 3-4 days of intermittent pain in this region that acutely acutely worsened on 08/20 . They state the pain is in the right upper quadrant and radiates to the upper thorax and around his back. Hospital workup included a CT pulmonary angiogram which revealed bilateral emphysema. Multiple bilateral pulmonary nodules present with the largest in the right lung measuring 2.8 cm and the largest in the left lung measuring 2.6 cm. Severe compressive atelectasis in the right lower lobe. Moderate-sized pulmonary effusion. Pleural thickening in the anterior inferior hemothorax. Right paratracheal lymph node 15 mm. 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 No lytic bone lesions. Also noted significant coronary artery and aortic atherosclerotic calcifications. Patient was evaluated by hematology. Recommended lung biopsy when stable. She has become increasingly short of breath and was transferred from a [facility] [place] to [facility] at 70%. Patient became less responsive and we were consulted. Patient required intubation/central line placement is currently having a right pigtail catheter placed to remove fluid from right lung. 08/24: hypotensive this AM requiring levophed at 8 mcg/min. drained 600cc of serosanguinous fluid out of chest tube. responded successfully to straight-leg challenge. intubated, sedated. remains very critically ill. 08/25: Afebrile. Off all antihypertensives and vasopressin. Currently normal saline at 100 cc an hour. On propofol and fentanyl drips. 08/26: Afebrile. No tonsillar creatinine currently at 20 cc an hour. Remains on increased propofol drip at 40 mcg/kg/min secondary to severe agitation overnight and on attempted spontaneous breathing trials. Will try dexmedetomidine attempt to wean today. 08/27: Worsening lung infiltrates associated with hydration. Afebrile. Known diastolic dysfunction. He appears to be exquisitely sensitive to fluid balance. Presently converting to Precedex and will try spontaneous breathing trials. 08/28: Continued worsening bilateral lung infiltrates. IV fluid has been stopped yesterday, will add additional diuretics. Diffusion gradient worsened, unable to wean from ventilator. 08/29: Mild improvement in lung infiltrates after diuresis without harming renal function. Remains ventilator dependent. Biopsy yesterday, results pending. 08/30: Worsening gas exchange with deteriorating diffusion capacity and requirements for increased inspired oxygen concentration. This all despite 2 L diuresis. Await pathology results. 08/31: Lung infiltrates resolving with diuresis. Continues to behave like diastolic heart failure. Contraction alkalosis is developing will add a carbonic anhydrase inhibitor for a couple of days. T-max 100.8 but for the most part he has been afebrile. Lung mass does appear to be a malignancy. Agree with attempt to rebiopsy at some point. We will continue to diuresis until his kidneys squeak. At 7-10 days of antibiotics it may be best to stop treatment and reculture for fevers. I will defer to the pulmonary service. 09/01: remains intubated and sedated. continues to fail any weaning attempts. consulted palliative to assist in goals of care: may need tracheostomy for further aggressive care. 09/02: palliative meeting with family again today. no improvements. it has been greater than 10 days of full empiric antibiotics: will discontinue and re- culture for fever. 09/03: chest tube on water seal with minimal output. cxr unchanged. CT removed today on my eval. no other changes or improvements. unlikely to have favorable outcome. quite hypercarbic despite full vent support: will make changes to ventilation to assist with hypercarbic. 09/04: Remains sedated, orally intubated on mechanical ventilation. 09/05: Remains sedated, orally intubated on mechanical ventilation. Failed CPAP trials yesterday. 09/06: Sedated, arousable, orally intubated on mechanical ventilation. Failed CPAP trials yesterday. Family wishes to continue aggressive care and desire trach and PEG. 09/07: T-max 100.3. One bowel movement yesterday. Failed CPAP trials yesterday. OG tube plugged overnight and able to place new feeding tube at the present time. We will switch all medications to IV at the present time including amiodarone drip at 0.5 mg/min. Check digoxin level prior to resuming IV. 09/08: T-max 99.2. Currently afebrile. One bowel movement overnight. Plan for percutaneous tracheostomy today. GI consult for PEG placement. CT chest revealed small bilateral pleural effusions. Persistent right middle lobe mass which we will consult IR again for rebiopsy. Will ask pulmonary to see again 09/09: Remains on full vent support more critical today increasing oxygen requirement FiO2 at 65 of have increase PEEP to 10 to attempt wean oxygen. Air entry markedly diminished bilaterally. Chest x-ray shows bilateral prominent interstitial infiltrates. Fluid up by approximately 10 kg. I will discontinue half-normal saline. Lasix 40 mg IV 1 09/10: Patient remains critical showing agonal breathing on the ventilator. Bilateral coarse breath sounds. Chest x-ray shows bilateral patchy infiltrates improved left effusion after thoracentesis and removal of 1 L of fluid. However FiO2 requirement remains high at 65%. UO 1.5L in 24 hours. Lab work pending. IV steroids started for probable COPD exacerbation given history of smoking 09/11: Remains critical but slightly more stable. Breathing pattern has improved and oxygenation has improved after starting IV steroids for COPD exacerbation and thoracentesis on 09/09/2017. Currently FiO2 down to 50%, PEEP at 10. We will further wean. Sodium increased to 151 start quarter normal saline, increase Lasix. Family wished to proceed with full code. PEG today 09/12: Remains intubated sedated with propofol. Urine output 1.8 L. BUN/ creatinine slightly increased today 72/1.34. Will reduce Lasix dose also reduce Solu-Medrol. Vent dyssynchrony has improved but FiO2 remains high at 55% 09/13: Off all sedation for 24 hours. Apparently patient notes has had one family is at bedside asking questions. BUN/creatinine slightly improved 71/ 1.14 from 72/1.34. WBC count slightly improved to 20.7. FiO2 at 45% chest x- ray shows some interval improvement. Also Na improved to 147 09/14: Remains intubated off sedation. Slightly tachypneic on pressure support . Urine output approximately 1500 mL in 24 hours 09/15: Patient clearly more awake today seems to understand some of the commands. Concern about quadriparesis patient is not able to withdrawal to pain 4, even though it appears he does feel the pain. MRI of the C-spine ordered. Neurology consulted. Otherwise BUN/creatinine slightly improved 09/16: Patient remains quadriparetic, slight movement of the left upper extremity. MRI of the C-spine shows focal severe spinal canal stenosis at C4-5 , with increased signal within the body of the spinal cord at this level most likely representing some myelomalacia. Moderate diffuse broad-based bulging at C3-4 with some mild increased signal in the spinal cord at this level. Moderate spinal canal stenosis at C6-C7. Also there is evidence of tracheostomy site infection. Explained MRI findings to son and patient's using electronic health services coordinator. Discussed with Dr. Carvalho. Increase Solu-Medrol to 250 mg IV every 6 hours. Consult neurosurgery 09/17: Remains septic, remains quadriplegic. Slight movements of the left upper extremity noted. C. difficile positive p.o. vancomycin added by ID yesterday. Appreciate input from Dr. Victor. Patient hs severe upper cervical stenosis with myelopathy and resultant SCI/severe quadriplegia of the upper and lower extremities. Prognosis very poor per neurosurgery 09/18: Afebrile. Tube feeds are at goal. No change in neurological status. Left upper extremity movement only. 09/19: Resting comfortably in bed in no acute distress. Noted able to squeeze left hand in slightly squeeze right hand. Will move bilateral lower extremities slightly to command. Positive BM. 09/20: Status post C2 hemilaminectomy, C3 through [address] Victor yesterday. Tolerated procedure well. Restarting tube feeding today. Verbalizing words and does move left upper extremity spontaneously. SUBJECTIVE: 09/21: Afebrile. Neurological unchanged overnight. No bowel movement since 09/18. Tolerating tube feeds at goal. Discussed with care plan via java sql developer yesterday and she expressed understanding. 09/22: Stable hemodynamics and acceptable gas exchange. Remains weak.Unable to wean from ventilator. 09/23: Remains effectively quadriplegic. Unable to wean from ventilator due to inadequate respiratory stamina. Objective Vital Signs / I&O: Vital Signs 09/22/17 12:00 09/22/17 14:00 09/22/17 16:00 Temperature 99.1 F 99.5 F Pulse Rate 91 H 98 H 98 H Respiratory Rate 18 20 Blood Pressure 165/66 H 183/108 H Pulse Oximetry 96 93 L 09/22/17 16:20 09/22/17 17:00 09/22/17 18:24 Temperature Pulse Rate 74 Respiratory Rate 17 Blood Pressure 133/68 Pulse Oximetry 94 L 09/22/17 20:00 09/22/17 20:05 09/22/17 22:00 Temperature 97.7 F Pulse Rate 94 H 94 H 85 Respiratory Rate 16 17 Blood Pressure 147/69 H Pulse Oximetry 100 09/23/17 00:00 09/23/17 00:05 09/23/17 02:00 Temperature 98.4 F Pulse Rate 75 93 H Respiratory Rate 16 16 Blood Pressure 156/80 H Pulse Oximetry 98 09/23/17 04:00 09/23/17 04:20 09/23/17 06:00 Temperature 101.0 F H Pulse Rate 77 91 H Respiratory Rate 16 16 Blood Pressure 154/72 H Pulse Oximetry 97 09/23/17 08:14 Temperature Pulse Rate 102 H Respiratory Rate 13 Blood Pressure Pulse Oximetry 95 Intake & Output 09/22/17 09/23/17 09/23/17 18:59 06:59 18:59 Intake Total 1630 / 1630 1327 / 1327 Output Total 3070 / 3070 1010 / 1010 Balance -1440 / -1440 317 / 317 Weight 84.6 kg Intake: IV 300 / 300 100 / 100 Unasyn Inj 3 GM In NS Inj 100 300 / 300 100 / 100 ML @ 200 mls/hr IV.SIG Q6H [facility] Rx#:[id number] Oral 0 / 0 Tube Feeding 570 / 570 627 / 627 Tube Irrigant 160 / 160 Water Bolus Amount 600 / 600 600 / 600 Anesthesia Amount 0 / 0 Output: Urine 1450 / 1450 Stool 100 / 100 50 / 50 Urine Amount (Catheter) 1500 / 1500 950 / 950 Indwelling Urethral Catheter 1500 / 1500 950 / 950 Wound Drainage # 1 Posterior Neck [place] Drain Other: Date of Last Bowel Movement 09/18/17 09/23/17 Result Diagrams: 09/22/17 02:46 09/23/17 02:58 Objective Remarks: GENERAL: 77-year-old male currently ventilated via trach, responds weakly to stimulation but not able to move right upper extremity. Slight movement left upper extremity. SKIN: Warm and dry. No rash HEAD: Atraumatic. Normocephalic. Eyes moderately sunken. EYES: Pupils equal and round about 2 mm bilaterally reactive. No conjunctival icterus. No injection or drainage. ENT: No nasal bleeding or discharge. Mucous membranes dry. Mouth open. NECK: Trachea midline. Trach site mildly erythematous. CARDIOVASCULAR: Heart rate well controlled now. S1, S2 no S4. Without murmur. No JVD LUNGS: Coarse rhonchi appreciated bilaterally. Mild expiratory wheeze. Acceptable bilateral air movement. GASTROINTESTINAL: Abdomen soft, non-tender, nondistended. No guarding. Bowel sounds are present. MUSCULOSKELETAL: Extremities without significant peripheral edema. Well perfused. NEUROLOGICAL: Off all sedation. Minimal response or eye opening today. Able to extend left wrist weakly. Slight movement to command on right lower extremity. Assessment and Plan - Assessment and Plan Plan: A/P Assessment and Plan Neuro/Psych: Postoperative day #1 C2 hemilaminectomy, C3 through 5 lamina plasty secondary to cervical stenosis, spinal stenosis by Dr. Victor Acute toxic metabolic encephalopathy Quadriplegia Severe cervical spinal cord stenosis, with acute spinal cord injury MRI C-spine 09/15: There appears to be focal severe spinal canal stenosis at C4- 5. There is increased signal within the body of the spinal cord at this level most likely representing some myelomalacia. Moderate diffuse broad-based bulging at C3-4 with some mild increased signal in the spinal cord at this level. Moderate spinal canal stenosis at C6-C7 Bilateral facet arthritis at multiple levels. Extensive primary degenerative changes with disc degeneration and disc space narrowing throughout the entire cervical spine. Severe quadriplegia of the upper and lower extremities with some preserved residual sensory function. Neurosurgery Dr. Victor. Poor chance of neurological recovery for him Neurology Dr. Carvalho, discussed with neurosurgery today. Per his recommendations decrease to methylprednisolone succinate to 40 mg IV every 8 hours starting 09/20 with goal to rapidly taper off. Will decrease to 40 mg twice daily today 09/21. Previously on 250 mg every 6 hours started 09/[address] 08/23: 2 questionable tiny focal hemorrhages. MRI of brain 08/26 chronic small vessel ischemic and atrophic changes CT brain 09/05 revealed bilateral maxillary sinusitis. No other acute finding EEG 09/03 revealed severe encephalopathy. No epileptiform activity Acetaminophen 650 mg by tube every 6 hours as needed fever Oxycodone 5 mg every 4 hours scheduled Morphine sulfate 2 mg IV every 4 hours as needed pain 6 -10. PT/OT CV: Uncontrolled hypertension septic shock- resolved Atherosclerotic coronary artery disease Atrial fibrillation Elevated troponin downward trend Fluid overload We will give 2 doses of acetazolamide 250 mg IV 1 today. Discontinue furosemide Amiodarone Discontinued 09/07 secondary to bradycardia and pauses Continue metoprolol 25 mg p.o. q8h but increase to 50 mg twice daily Continue digoxin 0.125 mg daily.. 0.5 recheck level in a.m. 09/22. Will give 0.25 mg 1 at 1800 today (Home medication is NITRENDIPINE 10 mg by mouth daily) Currently off all vasopressors, mildly hypertensive Resp: Acute hypoxic hypercapnic respiratory failure COPD with exacerbation/Emphysema Trach site infection Bilateral pleural effusion/status post chest tube right-sided transudative in nature. Chest tube removed 09/04 Multiple bilateral pulmonary masses vs infiltrate, RML mass vs consolidation Pulmonary edema PRVC 16/1.03/24/49 Ventilator bundle Continue IV methylprednisolone succinate at increased dose as above for acute spinal cord injury, continue inhaled budesonide 0.5/2 1 inhalation twice daily Albuterol/ipratropium aerosols every 4 hours with albuterol aerosols every 2 hours as needed dyspnea CT pulmonary angiogram revealed 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 Right middle lobe 2.7 x 2.2 x 7's. Spiculated. Left lingula is 3.4 x 3.20 cm. Underlying pronounced emphysematous type changes throughout lung larios. Right pleural effusion. CT thorax 09/08 revealed multiple areas of consolidation bilaterally. Prior granulomatous disease. Focal consolidation or mass in the right middle lobe that appears unchanged. Lung mass biopsied on August 28 -results - CHRONIC INFLAMMATORY AND REACTIVE FIBROBLASTIC TISSUE CONTAINING ENTRAPPED BENIGN EPITHELIUM reconsult IR 09/08 for repeat biopsy Followed by Dr. Hardy/pulmonology. Reconsulted 09/08, recommended repeat CT in 4 weeks. Hold off the IR guided biopsy time due to unstable respiratory status, neuro status s/p percutaneous tracheostomy 09/08 (Biga/Ceres). Piperacillin/tazobactam and vancomycin for trach site infection. May remove trach sutures Status post thoracentesis left side 09/09 with 1 L fluid removed. No evidence of infection GI: Hypoalbuminemia C. difficile colitis s/p PEG 09/11. Tolerating tube feeds with Glucerna 1.5 at 55 cc an hour, free water flushes 300 cc every 6 hours Lansoprazole for GI prophylaxis Lactulose 30 cc twice daily for bowel regimen/hyperammonemia P.o. vancomycin 250 every 6 hours for C. difficile intestinal infection : Urinary retention, possible urinary stricture Acute kidney injury Maintain Larson catheter. Monitor urine output, Accurate I's and O's significant difficulty due to obstruction which may be urethral stricture which prevented serial i/o. replaced Larson catheter. Avoid nephrotoxic drugs Endo: Diabetes mellitus Hyperglycemia History of gout Sliding scale insulin with NovoLog high regimen to maintain euglycemia Currently on insulin detemir 10 units subcu twice daily Holding home medications of allopurinol 300 mg daily and colchicine 0.6 mg as needed Holding home medications of metformin 500 mg twice daily Heme: Leukocytosis Normocytic anemia Monitor CBC daily. Follow trends Coags within normal limits ID: Severe sepsis Trach site infection Healthcare associated pneumonia C. difficile colitis Appreciate ID input. Discontinue IV vancomycin, IV piperacillin/tazobactam switch to ampicillin/sulbactam by ID on 09/19. Continue fluconazole 200 mg daily and p.o. vancomycin 250 milligrams by tube 4 times daily Status post bronchoscopy 09/03 cultures negative Blood culture from 08/20/ 08/26 no growth to date Sputum 09/05 no growth Influenza a and B negative 09/07 Bronchial wash negative FEN: Hypernatremia Quarter normal saline with 20 mEq KCl 1 today. Replace electrolytes as clinically indicated per ICU electrolyte protocol. Received 20 milliequivalents potassium chloride today Monitor CMP On free water 300 every 6, improved. MSK: Elevated BMI PT evaluate and treat Weight loss encouraged Access Peripheral IV. Central line if indicated. Discontinue arterial line placed 09/19 in OR on 09/20. Prophylaxis -GI -lansoprazole.. DVT -SCD/heparin subcutaneous 5000 units 3 times a day. No signs of bleeding on MRI brain Overall impression: This gentleman remains weak and debilitated, functionally quadriparetic. We are unable to wean him from a ventilator and his general condition and strength is not improving. Long-term prognosis for a meaningful recovery is quite poor. The best we can probably hope for is a skilled facility and chronic ventilator dependency.
--- NOTE | 2017-09-23 09:57 | P.PNPAL ---
Reason for Visit Reason for visit: a. To assist with evaluation and management of symptoms including: dyspnea, pain, agitation b. To assist medical decision maker(s) with: better understanding of current medical conditions; weighing benefits/burdens of medical treatment options; making medical treatment decisions. Subjective Subjective/Interval History: Patient s/p C2-C3 to 5 laminoplasty for severe cervical spinal cord stenosis. Pt remains flaccid and quadriplegic per neurosurgery. Critical feels pt is unable to be wean from ventilator due to inadequate respiratory stamina. Pt's biopsy on August 28 show chronic inflammatory and reactive fibroblastic tissue. CT pulmonary angiogram revealed 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 Right middle lobe 2.7 x 2.2 x 7's. Spiculated. Left lingula is 3.4 x 3.20 cm. Repeat biopsy put on hold due to unstable respiratory status. Pt is s/p peg and trach. Family/Friend Interactions: I did speak with pt's son who pt's has been relying on to make decision. Goals are aggressive. He does have concern as pt seem to be doing worse neurologically before the surgery. Goals are aggressive. I will meet with the family at 11:00 am tomorrow. Objective Vital Signs: Vital Signs 09/22/17 12:00 09/22/17 14:00 09/22/17 16:00 Temperature 99.1 F 99.5 F Pulse Rate 91 H 98 H 98 H Respiratory Rate 18 20 Blood Pressure 165/66 H 183/108 H Pulse Oximetry 96 93 L 09/22/17 16:20 09/22/17 17:00 09/22/17 18:24 Temperature Pulse Rate 74 Respiratory Rate 17 Blood Pressure 133/68 Pulse Oximetry 94 L 09/22/17 20:00 09/22/17 20:05 09/22/17 22:00 Temperature 97.7 F Pulse Rate 94 H 94 H 85 Respiratory Rate 16 17 Blood Pressure 147/69 H Pulse Oximetry 100 09/23/17 00:00 09/23/17 00:05 09/23/17 02:00 Temperature 98.4 F Pulse Rate 75 93 H Respiratory Rate 16 16 Blood Pressure 156/80 H Pulse Oximetry 98 09/23/17 04:00 09/23/17 04:20 09/23/17 06:00 Temperature 101.0 F H Pulse Rate 77 91 H Respiratory Rate 16 16 Blood Pressure 154/72 H Pulse Oximetry 97 09/23/17 08:14 Temperature Pulse Rate 102 H Respiratory Rate 13 Blood Pressure Pulse Oximetry 95 Intake & Output 09/22/17 09/23/17 09/23/17 18:59 06:59 18:59 Intake Total 1630 / 1630 1327 / 1327 Output Total 3070 / 3070 1010 / 1010 Balance -1440 / -1440 317 / 317 Weight 84.6 kg Intake: IV 300 / 300 100 / 100 Unasyn Inj 3 GM In NS Inj 100 300 / 300 100 / 100 ML @ 200 mls/hr IV.SIG Q6H [facility] Rx#:[id number] Oral 0 / 0 Tube Feeding 570 / 570 627 / 627 Tube Irrigant 160 / 160 Water Bolus Amount 600 / 600 600 / 600 Anesthesia Amount 0 / 0 Output: Urine 1450 / 1450 Stool 100 / 100 50 / 50 Urine Amount (Catheter) 1500 / 1500 950 / 950 Indwelling Urethral Catheter 1500 / 1500 950 / 950 Wound Drainage # 1 Posterior Neck [place] Drain Other: Date of Last Bowel Movement 09/18/17 09/23/17 Physical Exam: CONSTITUTIONAL/GENERAL: This is an adequately nourished patient , on [facility] vent TUBES/LINES/DRAINS: ETT, ceja, PIV x2 BUE, OGT SKIN: No jaundice, rashes, or lesions. No wounds seen anteriorly. skin warm/ dry EYES: no eye opening. No injection or drainage. Fundi not examined. ENT: Nose without bleeding or purulent drainage. Limited oropharynx exam 2/2 + ET tube. CARDIOVASCULAR: RRR without murmurs. No JVD. Peripheral pulses symmetric. Trace periph edema to hands. RESPIRATORY/CHEST: unlabored respirations via ETT to vent. Coarse breath sounds. Diminished sounds bases. GASTROINTESTINAL: Abdomen soft, non-tender, nondistended. No hepato-splenomegaly , or palpable masses. Bowel sounds present. TF infusing via OGT MUSCULOSKELETAL: Trace +BUE edema. +soft restraints BUE. No mottling or clubbing. NEUROLOGICAL: n vent. no eye opening to stimuli /no movement to touch to extremities PSYCH: no apparent distress, limited assess 2/2 clinical condition Diagnostic Tests Laboratory: Laboratory Results - last 72 hr 09/20/17 09/20/1709/20/18 11:42 17:13 21:12 WBC RBC Hgb Hct MCV MCH MCHC RDW Plt Count MPV Neut % (Auto) Lymph % (Auto) [place] % (Auto) Eos % (Auto) Baso % (Auto) Neut # (Auto) Lymph # (Auto) [place] # (Auto) Eos # (Auto) Baso # (Auto) WBC Differential Differential Comment Sodium Potassium Chloride Carbon Dioxide Anion Gap BUN Creatinine Estimated GFR POC Glucose 92 139 H 172 H Random Glucose Calcium Phosphorus Magnesium Total Bilirubin AST ALT Alkaline Phosphatase Total Protein Albumin Digoxin 09/21/17 09/21/17 09/21/17 00:34 04:12 04:12 WBC 23.2 H RBC 3.20 L Hgb 9.3 L Hct 28.8 L MCV 89.8 MCH 29.0 MCHC 32.3 RDW 16.1 Plt Count 223 MPV 8.0 Neut % (Auto) 93.6 H Lymph % (Auto) 1.3 L [place] % (Auto) 5.0 Eos % (Auto) 0.0 Baso % (Auto) 0.1 Neut # (Auto) 21.7 H Lymph # (Auto) 0.3 L [place] # (Auto) 1.2 H Eos # (Auto) 0.0 Baso # (Auto) 0.0 WBC Differential . Differential Comment Auto diff final Sodium 149 H Potassium 3.7 Chloride 108 H Carbon Dioxide 35.7 H Anion Gap 5 BUN 53 H Creatinine 0.71 Estimated GFR Greater than 89 POC Glucose 74 Random Glucose 89 Calcium 8.0 L Phosphorus 2.9 Magnesium 2.7 H Total Bilirubin 0.4 AST 14 L ALT 28 Alkaline Phosphatase 100 Total Protein 6.1 L Albumin 1.9 L Digoxin 0.5 L 09/21/17 09/21/17 09/21/17 04:12 07:50 12:16 WBC RBC Hgb Hct MCV MCH MCHC RDW Plt Count MPV Neut % (Auto) Lymph % (Auto) [place] % (Auto) Eos % (Auto) Baso % (Auto) Neut # (Auto) Lymph # (Auto) [place] # (Auto) Eos # (Auto) Baso # (Auto) WBC Differential Differential Comment Sodium Potassium Chloride Carbon Dioxide Anion Gap BUN Creatinine Estimated GFR POC Glucose 107 190 H 167 H Random Glucose Calcium Phosphorus Magnesium Total Bilirubin AST ALT Alkaline Phosphatase Total Protein Albumin Digoxin 0709/21/17 09/22/17 16:32 19:57 00:35 WBC RBC Hgb Hct MCV MCH MCHC RDW Plt Count MPV Neut % (Auto) Lymph % (Auto) [place] % (Auto) Eos % (Auto) Baso % (Auto) Neut # (Auto) Lymph # (Auto) [place] # (Auto) Eos # (Auto) Baso # (Auto) WBC Differential Differential Comment Sodium Potassium Chloride Carbon Dioxide Anion Gap BUN Creatinine Estimated GFR POC Glucose 136 H 177 H 144 H Random Glucose Calcium Phosphorus Magnesium Total Bilirubin AST ALT Alkaline Phosphatase Total Protein Albumin Digoxin 09/22/17 09/22/17 09/22/17 02:46 02:46 04:04 WBC 19.9 H RBC 2.86 L Hgb 8.3 L Hct 26.0 L MCV 90.9 MCH 29.0 MCHC 31.9 L RDW 15.9 Plt Count 186 MPV 8.2 Neut % (Auto) 97.2 H Lymph % (Auto) 0.7 L [place] % (Auto) 1.9 Eos % (Auto) 0.0 Baso % (Auto) 0.2 Neut # (Auto) 19.3 H Lymph # (Auto) 0.1 L [place] # (Auto) 0.4 Eos # (Auto) 0.0 Baso # (Auto) 0.0 WBC Differential . Differential Comment Auto diff final Sodium 146 H Potassium 4.0 Chloride 108 H Carbon Dioxide 29.8 Anion Gap 8 BUN 48 H Creatinine 0.62 Estimated GFR Greater than 89 POC Glucose 197 H Random Glucose 153 H Calcium 8.2 L Phosphorus 3.4 Magnesium 2.5 Total Bilirubin 0.4 AST 13 L ALT 26 Alkaline Phosphatase 90 Total Protein 5.8 L Albumin 1.8 L Digoxin 0.9 09/22/17 09/22/17 09/22/17 08:23 12:28 16:46 WBC RBC Hgb Hct MCV MCH MCHC RDW Plt Count MPV Neut % (Auto) Lymph % (Auto) [place] % (Auto) Eos % (Auto) Baso % (Auto) Neut # (Auto) Lymph # (Auto) [place] # (Auto) Eos # (Auto) Baso # (Auto) WBC Differential Differential Comment Sodium Potassium Chloride Carbon Dioxide Anion Gap BUN Creatinine Estimated GFR POC Glucose 215 H 120 H 175 H Random Glucose Calcium Phosphorus Magnesium Total Bilirubin AST ALT Alkaline Phosphatase Total Protein Albumin Digoxin 09/22/17 09/23/17 09/23/17 22:32 02:58 03:23 WBC RBC Hgb Hct MCV MCH MCHC RDW Plt Count MPV Neut % (Auto) Lymph % (Auto) [place] % (Auto) Eos % (Auto) Baso % (Auto) Neut # (Auto) Lymph # (Auto) [place] # (Auto) Eos # (Auto) Baso # (Auto) WBC Differential Differential Comment Sodium 144 Potassium 4.2 Chloride 107 Carbon Dioxide 30.5 Anion Gap 7 BUN 41 H Creatinine 0.57 L Estimated GFR Greater than 89 POC Glucose 201 H 180 H Random Glucose 171 H Calcium 7.9 L Phosphorus Magnesium Total Bilirubin AST ALT Alkaline Phosphatase Total Protein Albumin Digoxin 09/23/17 08:21 WBC RBC Hgb Hct MCV MCH MCHC RDW Plt Count MPV Neut % (Auto) Lymph % (Auto) [place] % (Auto) Eos % (Auto) Baso % (Auto) Neut # (Auto) Lymph # (Auto) [place] # (Auto) Eos # (Auto) Baso # (Auto) WBC Differential Differential Comment Sodium Potassium Chloride Carbon Dioxide Anion Gap BUN Creatinine Estimated GFR POC Glucose 168 H Random Glucose Calcium Phosphorus Magnesium Total Bilirubin AST ALT Alkaline Phosphatase Total Protein Albumin Digoxin Result Diagrams: 09/22/17 02:46 09/24/17 02:33 Microbiology: Microbiology 09/16/17 16:55 Aerobic Blood Culture - Final Blood - Peripheral No growth in 5 days Anaerobic Blood Culture - Final No growth in 5 days 09/16/17 16:45 Aerobic Blood Culture - Final Blood - Peripheral No growth in 5 days Anaerobic Blood Culture - Final No growth in 5 days Assessment and Plan - Disease Oriented Problem List (1) Respiratory failure Comment: revealed 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 Right middle lobe 2.7 x 2.2 x 7's. Spiculated. Left lingula is 3.4 x 3.20 cm. COPD (2) SVT (supraventricular tachycardia) (3) Lung mass Comment: revealed 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 Right middle lobe 2.7 x 2.2 x 7's. Spiculated. Left lingula is 3.4 x 3.20 cm. 1st biopsy did not show malignancy. 2nd biopsy on hold. (4) Diabetes (5) Gout (6) Spinal stenosis - Symptom Scale (1) Dyspnea 0-10 Scale: Unable to quantify (2) Pain 0-10 Scale: Unable to quantify Pertinent Non-Medical Issues: Psychosocial: Retired. He was living at home with his Tommie Gutierrez and his son "Cristina Palmer. Recently returned from 3 month trip to [place]. Speaks Mandarin only. Spiritual: unk at this time Legal: Per [place] statutes legal decision maker proxy is pt's . It appears she may have been deferring to son but has been present for major decisions. Family appears to be working together. Ethical issues impacting care: no issues identified Important Contacts: Spencer Reilly [phone] Son "Cristina Palmer [phone] Prognosis: 77 yo critically ill pt with respiratory failure, possible malignant lung nodules, underlying diastolic heart failure and DM, intubated on vent and now with chest tube. Exact cause respiratory failure and lack of improvement unclear at this time. Attempts to wean from vent have been unsuccessful. Stable for time being but no real signs improvement in respiratory status. May need a 2nd lung bx as initial bx was negative. Prognosis is guarded to poor. Prognosis for recovery to previous status is guarded. Prior to hospitalization he was independent and ambulatory. Regardless of whether he has a 2nd biopsy he is likely to require rehab/SNF placement after discharge. If he remains on vent he will need trach and PEG in the coming week. If he has lung malignancy prognosis poor. Pt remains at significant risk for further complications and setbacks. Code Status: Full Code Plan: CODE STATUS - full * LEGAL DECISION MAKER - per [place] statutes is proxy. Appears she may defer some decisions to son, family all working together. * GOALS -palliative has met at length with patient's family multiple times. They have continued to express aggressive goals requesting any available treatments be continued for patient. I did speak with pt's son who pt's has been relying on to make decision. Goals are aggressive. He does have concern as pt seem to be doing worse neurologically before the surgery. Goals are aggressive. I will meet with the family at 11:00 am tomorrow. * SYMPTOMS * shortness of breath - 2/2 pleural effusions, underlying diastolic heart failure. Questionable malignancy, hx remote TB. On vent, weaning unsuccessful thus far. + vent asynchrony treated with sedatives. Status post tracheostomy. Status post thoracentesis possible may require thoracentesis of other lung. Some tachypnea, agonal irregular respirations today on vent. Remains on sedation * pain - ?cause? presented with right side and thoracic pain. imaging showing lung nodules. BX benign, ?repeat. 0/10 pain per nursing scores. appears comfortable, no signs of pain on exam. Has been on fentanyl drip though this is been weaned. Appears comfortable. * agitation - . on exam does not appear agitated. sedation per [facility]- Palliative care will continue to follow during hospital course as condition evolves to assist patient/decision maker with understanding of medical conditions, benefits/burdens of treatment options, clarification of goals of treatment, and will assist with symptoms of palliative concern. Attestation Attestation: To help prompt me to consider important information that might be impacting today's encounter and assessment, information from prior notes written by myself or my colleagues may have been "brought forward" into today's note. My signature on this note, however, is an attestation that I personally performed the exam, history, and/or decision-making noted today, and, unless otherwise indicated, the interactions with patient, family, and staff as well as the review of records all occurred today. I also attest that the listed assessment and stated plan reflect my best clinical judgment today based on the combination of historical information, prior notes, and today's exam/ interactions. When time spent is documented, it refers only to time spent today by the signer, or if indicated, combined time spent today by collaborating physician/nurse practitioner.
[2017-09-24] MEDS: Insulin NovoLOG Aspart Correctional Sugar Inj SQ SCH ×6 (00:31→22:11)
[2017-09-24 03:49] LABS: Anion Gap 7 meq/L (5-15); Blood Urea Nitrogen 36 mg/dL (7-18); Calcium 7.9 mg/dL (8.5-10.1); Carbon Dioxide 30.2 meq/L (21.0-32.0); Chloride 103 meq/L (98-107); Glomerular Filtration Rate Greater Than 89 mL/min (>89); Glucose,Random 141 mg/dL (74-106); Sodium 140 meq/L (136-145)
[2017-09-24] MEDS: Ampicillin/Sulbactam Inj 3 GM in Sodium Chloride 0.9% Inj 100 ML IV.SIG SCH ×4 (05:30→22:10)
[2017-09-24] MEDS: Metoprolol Tartrate 50 MG Tablet PO SCH ×2 (09:22→22:09)
[2017-09-24] MEDS: Senna/Docusate Sodium 8.6/50 MG Tablet PO SCH ×2 (09:23→22:13)
[2017-09-24] MEDS: MethylPREDNISolone Sod Succinate Inj 40 MG/ML Vial IV.PUSH SCH ×2 (09:23→22:09)
[2017-09-24] MEDS: Chlorhexidine 0.12% Oral Kit 15 ML UDC SWISH-SPIT SCH ×2 (09:25→22:14)
[2017-09-24] MEDS: Beneprotein Powder Packet G-TUBE SCH ×3 (09:25→17:36)
[2017-09-24] MEDS: Insulin Detemir Inj 1,000 UNIT/10 ML Vial SQ SCH ×2 (09:30→22:13)
--- NOTE | 2017-09-24 10:27 | P.PNNS ---
Subjective Interval history: 09/16: 77-year-old male admitted on August 21, 2017 with initial complaint of chest pain and right upper quadrant abdominal pain. His initial evaluation revealed multiple pulmonary lesions with pleural effusion. However cytology from thoracentesis and lung biopsy were negative for malignancy. He initially required a tracheostomy placement. He has been on ventilatory support, with sedation recently weaned over the past few days. There was noted within the past day or 2 that he has not been moving his extremities, and an MRI of the cervical spine was subsequently obtained on 09/15/2017. This has revealed severe cervical stenosis with significant abnormal signal intensity within the cord. Review of his records indicates the patient to be moving all extremities during the first week or so of his hospitalization, although it is difficult to determine the grade of his motor function, with the patient very ill and apparently generally weak upon his initial presentation. Physical therapy notes reviewed, however therapy has not been able to consistently work with the patient due to his pulmonary problems and subsequent intubation and sedation. 06/18: Pt awake. Not verbalizing. Not following commands consistently tries to stick out tongue to command. 09/18: The patient is awake in bed. He is trached and on CPAP/PSV settings. He does look at this practitioner and tracks. He did not follow any commands. There was a trace of left foot movement to noxious stimulation. He did have facial grimacing also to noxious stimulation. Nursing reports that he did stick out his tongue after she demonstrated it. She also says that the patient squeezed with the left hand once but did not repeat it. 09/19: The patient went for a C3-5 laminoplasty and post-operatively was transferred back to the ISC unit. 09/20: Patient intubated 09/22: Intubated. Off sedation for examination 09/24: When seen this morning the patient is awake. He has no sedation infusing. He is trached and on CPAP. He is tachypneic and Nursing reports that he is having a harder time handling it today. She reported that he was moving the left upper spontaneously earlier. During evaluation he did not response to any stimuli but subsequently did move the left hand fingers slightly. Dr Srivastava with Palliative Care is to meet with the patient's son this morning. <Roc Castillo E - Last Filed: 09/24/17 10:44> Physical Exam Vital signs: Vital Signs 09/23/17 11:25 09/23/17 14:00 09/23/17 14:57 Temperature 98.7 F Pulse Rate 77 86 Respiratory Rate 19 Blood Pressure 166/94 H Pulse Oximetry 92 L 91 L 09/23/17 15:13 09/23/17 16:00 09/23/17 18:00 Temperature 98.9 F Pulse Rate 96 H 96 H Respiratory Rate 17 17 Blood Pressure 126/97 H Pulse Oximetry 96 97 09/23/17 20:00 09/23/17 20:08 09/23/17 20:14 Temperature 99.3 F Pulse Rate 96 H 98 H Respiratory Rate 17 14 14 Blood Pressure 163/89 H Pulse Oximetry 91 L 09/23/17 22:00 09/23/17 22:25 09/23/17 22:45 Temperature Pulse Rate 100 H Respiratory Rate 18 Blood Pressure Pulse Oximetry 91 L 91 L 09/24/17 00:00 09/24/17 02:00 09/24/17 04:00 Temperature 98.9 F 99.0 F Pulse Rate 88 86 86 Respiratory Rate 20 24 Blood Pressure 154/81 H 168/88 H Pulse Oximetry 09/24/17 05:43 09/24/17 05:46 09/24/17 06:00 Temperature Pulse Rate 86 Respiratory Rate 19 18 Blood Pressure Pulse Oximetry 91 L 90 L 09/24/17 08:01 Temperature Pulse Rate 92 H Respiratory Rate 21 Blood Pressure Pulse Oximetry 97 Intake & Output 09/23/17 09/24/17 09/24/17 18:59 06:59 18:59 Intake Total 1536 / 1536 2176 / 2176 Output Total 2780 / 2780 2280 / 2280 Balance -1244 / -1244 -104 / -104 Weight 74 kg Intake: IV 200 / 200 200 / 200 Unasyn Inj 3 GM In NS Inj 100 200 / 200 200 / 200 ML @ 200 mls/hr IV.SIG Q6H [facility] Rx#:[id number] Oral 0 / 0 Tube Feeding 556 / 556 556 / 556 Tube Irrigant 180 / 180 180 / 180 Water Bolus Amount 600 / 600 600 / 600 Anesthesia Amount 0 / 0 Other 640 / 640 Output: Urine 1450 / 1450 Stool 500 / 500 500 / 500 Estimated Blood Loss 300 / 300 Urine Amount (Catheter) 2250 / 2250 Indwelling Urethral Catheter 2250 / 2250 Wound Drainage 30 / 30 30 / 30 # 1 Posterior Neck [place] Drain Other: Other Intake Source Saline Solution Date of Last Bowel Movement 09/23/17 09/23/17 Narrative: GENERAL: Awake & alert. Trached and on CPAP/PSV settings. His respiratory rate is in the 20s. HEENT: Normocephalic, atraumatic. Pupils 3 mm irregular & reactive, does track. MUSCULOSKELETAL: No evident clubbing or deformity. Dependent edema to all extremities. Slight left hand finger movement spontaneously. NEUROLOGICAL: Awake. Trached, nonverbal. Pupils 3 mm irregular & reactive, does track. Did not follow any commands. No response to command or local noxious stimulation but subsequently moved the left hand fingers slightly on his own. - Urinary Catheter Management Indwelling Urethral Catheter Cath placed during this visit: yes Reason for continuing: Acute urinary retention Insertion date: 08/27/17 Insertion time: 17:00 <Roc Castillo - Last Filed: 09/24/17 10:44> Vital signs: Vital Signs 09/27/17 20:00 09/27/17 20:15 09/27/17 22:00 Temperature 97.9 F Pulse Rate 84 84 73 Respiratory Rate 24 18 Blood Pressure 147/76 H Pulse Oximetry 100 09/27/17 23:32 09/28/17 00:00 09/28/17 02:00 Temperature 96.4 F L Pulse Rate 74 89 Respiratory Rate 25 H Blood Pressure 134/66 Pulse Oximetry 99 100 09/28/17 04:00 09/28/17 06:00 09/28/17 08:10 Temperature 98.4 F Pulse Rate 90 82 80 Respiratory Rate 24 23 Blood Pressure 131/70 Pulse Oximetry 100 100 09/28/17 09:00 09/28/17 15:04 Temperature Pulse Rate Respiratory Rate 27 H 25 H Blood Pressure Pulse Oximetry Intake & Output 09/28/17 09/28/17 09/29/17 06:59 18:59 06:59 Intake Total 1140 / 1140 Output Total 1949 Balance -810 / -810 Weight 68.2 kg Intake: Tube Feeding 540 / 540 Water Bolus Amount 600 / 600 Output: Urine Amount (Catheter) 1949 Indwelling Urethral Catheter 1949 Other: Date of Last Bowel Movement 09/28/17 - Urinary Catheter Management Indwelling Urethral Catheter Cath placed during this visit: no <Anuj Victor - Last Filed: 09/28/17 19:18> Assessment and Plan - Plan Impression: 1. 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 2. Sepsis 3. Respiratory failure, tracheostomy in place. Now on CPAP 09/23: "Remains with flaccid quadriplegia-no definite changes compared to preoperative." - Dr Victor at 1823 Patient remains critical. Not following any commands. Slight spontaneous movement of left hand fingers but no response w/any extremity to command or noxious stimulation. RR in 20s. POD #5 () s/p: C3-5 laminoplasty Plan: Primary & critical care management per [employer]. Palliative Care followin. Plan postoperative MRI cervical spine this week to assess for adequate spinal cord decompression and determine the degree of myelomalacia. <Roc Castillo - Last Filed: 09/24/17 10:44> - Attending Attestation The exam, history, and the medical decision-making described in the above note were completed with the assistance of the mid-level provider. I reviewed and agree with the findings presented. I attest that I had a [id number] encounter with the patient on the same day, and personally performed and documented my assessment and findings in the medical record. Patient neuro exam stable over the past few days. No movement noted in the lower extremities. MRI requested <Anuj Victor - Last Filed: 09/28/17 19:18>
--- NOTE | 2017-09-24 11:02 | P.PNCC ---
Subjective Subjective Remarks/Hospital Course: This is a 77-year-old Gabones[place] male/Mandarin speaking only. Date of admission 08/21/2017. Date of consultation 08/23/2017. Past medical history is documented as hypertension, gout and diabetes mellitus. He is on no home medications. He does have remote history of tuberculosis 10 years ago. He quit tobacco use 20 years ago. He presented to [facility] on 08/21/2017 with a 3-4 days of intermittent pain in this region that acutely acutely worsened on 08/20 . They state the pain is in the right upper quadrant and radiates to the upper thorax and around his back. Hospital workup included a CT pulmonary angiogram which revealed bilateral emphysema. Multiple bilateral pulmonary nodules present with the largest in the right lung measuring 2.8 cm and the largest in the left lung measuring 2.6 cm. Severe compressive atelectasis in the right lower lobe. Moderate-sized pulmonary effusion. Pleural thickening in the anterior inferior hemothorax. Right paratracheal lymph node 15 mm. 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 No lytic bone lesions. Also noted significant coronary artery and aortic atherosclerotic calcifications. Patient was evaluated by hematology. Recommended lung biopsy when stable. She has become increasingly short of breath and was transferred [facility] to [facility] at 70%. Patient became less responsive and we were consulted. Patient required intubation/central line placement is currently having a right pigtail catheter placed to remove fluid from right lung. 08/24: hypotensive this AM requiring levophed at 8 mcg/min. drained 600cc of serosanguinous fluid out of chest tube. responded successfully to straight-leg challenge. intubated, sedated. remains very critically ill. 08/25: Afebrile. Off all antihypertensives and vasopressin. Currently normal saline at 100 cc an hour. On propofol and fentanyl drips. 08/26: Afebrile. No tonsillar creatinine currently at 20 cc an hour. Remains on increased propofol drip at 40 mcg/kg/min secondary to severe agitation overnight and on attempted spontaneous breathing trials. Will try dexmedetomidine attempt to wean today. 08/27: Worsening lung infiltrates associated with hydration. Afebrile. Known diastolic dysfunction. He appears to be exquisitely sensitive to fluid balance. Presently converting to Precedex and will try spontaneous breathing trials. 08/28: Continued worsening bilateral lung infiltrates. IV fluid has been stopped yesterday, will add additional diuretics. Diffusion gradient worsened, unable to wean from ventilator. 08/29: Mild improvement in lung infiltrates after diuresis without harming renal function. Remains ventilator dependent. Biopsy yesterday, results pending. 08/30: Worsening gas exchange with deteriorating diffusion capacity and requirements for increased inspired oxygen concentration. This all despite 2 L diuresis. Await pathology results. 08/31: Lung infiltrates resolving with diuresis. Continues to behave like diastolic heart failure. Contraction alkalosis is developing will add a carbonic anhydrase inhibitor for a couple of days. T-max 100.8 but for the most part he has been afebrile. Lung mass does appear to be a malignancy. Agree with attempt to rebiopsy at some point. We will continue to diuresis until his kidneys squeak. At 7-10 days of antibiotics it may be best to stop treatment and reculture for fevers. I will defer to the pulmonary service. 09/01: remains intubated and sedated. continues to fail any weaning attempts. consulted palliative to assist in goals of care: may need tracheostomy for further aggressive care. 09/02: palliative meeting with family again today. no improvements. it has been greater than 10 days of full empiric antibiotics: will discontinue and re- culture for fever. 09/03: chest tube on water seal with minimal output. cxr unchanged. CT removed today on my eval. no other changes or improvements. unlikely to have favorable outcome. quite hypercarbic despite full vent support: will make changes to ventilation to assist with hypercarbic. 09/04: Remains sedated, orally intubated on mechanical ventilation. 09/05: Remains sedated, orally intubated on mechanical ventilation. Failed CPAP trials yesterday. 09/06: Sedated, arousable, orally intubated on mechanical ventilation. Failed CPAP trials yesterday. Family wishes to continue aggressive care and desire trach and PEG. 09/07: T-max 100.3. One bowel movement yesterday. Failed CPAP trials yesterday. OG tube plugged overnight and able to place new feeding tube at the present time. We will switch all medications to IV at the present time including amiodarone drip at 0.5 mg/min. Check digoxin level prior to resuming IV. 09/08: T-max 99.2. Currently afebrile. One bowel movement overnight. Plan for percutaneous tracheostomy today. GI consult for PEG placement. CT chest revealed small bilateral pleural effusions. Persistent right middle lobe mass which we will consult IR again for rebiopsy. Will ask pulmonary to see again 09/09: Remains on full vent support more critical today increasing oxygen requirement FiO2 at 65 of have increase PEEP to 10 to attempt wean oxygen. Air entry markedly diminished bilaterally. Chest x-ray shows bilateral prominent interstitial infiltrates. Fluid up by approximately 10 kg. I will discontinue half-normal saline. Lasix 40 mg IV 1 09/10: Patient remains critical showing agonal breathing on the ventilator. Bilateral coarse breath sounds. Chest x-ray shows bilateral patchy infiltrates improved left effusion after thoracentesis and removal of 1 L of fluid. However FiO2 requirement remains high at 65%. UO 1.5L in 24 hours. Lab work pending. IV steroids started for probable COPD exacerbation given history of smoking 09/11: Remains critical but slightly more stable. Breathing pattern has improved and oxygenation has improved after starting IV steroids for COPD exacerbation and thoracentesis on 09/09/2017. Currently FiO2 down to 50%, PEEP at 10. We will further wean. Sodium increased to 151 start quarter normal saline, increase Lasix. Family wished to proceed with full code. PEG today 09/12: Remains intubated sedated with propofol. Urine output 1.8 L. BUN/ creatinine slightly increased today 72/1.34. Will reduce Lasix dose also reduce Solu-Medrol. Vent dyssynchrony has improved but FiO2 remains high at 55% 09/13: Off all sedation for 24 hours. Apparently patient notes has had one family is at bedside asking questions. BUN/creatinine slightly improved 71/ 1.14 from 72/1.34. WBC count slightly improved to 20.7. FiO2 at 45% chest x- ray shows some interval improvement. Also Na improved to 147 09/14: Remains intubated off sedation. Slightly tachypneic on pressure support . Urine output approximately 1500 mL in 24 hours 09/15: Patient clearly more awake today seems to understand some of the commands. Concern about quadriparesis patient is not able to withdrawal to pain 4, even though it appears he does feel the pain. MRI of the C-spine ordered. Neurology consulted. Otherwise BUN/creatinine slightly improved 09/16: Patient remains quadriparetic, slight movement of the left upper extremity. MRI of the C-spine shows focal severe spinal canal stenosis at C4-5 , with increased signal within the body of the spinal cord at this level most likely representing some myelomalacia. Moderate diffuse broad-based bulging at C3-4 with some mild increased signal in the spinal cord at this level. Moderate spinal canal stenosis at C6-C7. Also there is evidence of tracheostomy site infection. Explained MRI findings to son and patient's using electronic bond clerk. Discussed with Dr. Carvalho. Increase Solu-Medrol to 250 mg IV every 6 hours. Consult neurosurgery 09/17: Remains septic, remains quadriplegic. Slight movements of the left upper extremity noted. C. difficile positive p.o. vancomycin added by ID yesterday. Appreciate input from Dr. Victor. Patient hs severe upper cervical stenosis with myelopathy and resultant SCI/severe quadriplegia of the upper and lower extremities. Prognosis very poor per neurosurgery 09/18: Afebrile. Tube feeds are at goal. No change in neurological status. Left upper extremity movement only. 09/19: Resting comfortably in bed in no acute distress. Noted able to squeeze left hand in slightly squeeze right hand. Will move bilateral lower extremities slightly to command. Positive BM. 09/20: Status post C2 hemilaminectomy, C3 through [address] Victor yesterday. Tolerated procedure well. Restarting tube feeding today. Verbalizing words and does move left upper extremity spontaneously. SUBJECTIVE: 09/21: Afebrile. Neurological unchanged overnight. No bowel movement since 09/18. Tolerating tube feeds at goal. Discussed with care plan via court interpreter yesterday and she expressed understanding. 09/22: Stable hemodynamics and acceptable gas exchange. Remains weak.Unable to wean from ventilator. 09/23: Remains effectively quadriplegic. Unable to wean from ventilator due to inadequate respiratory stamina. 09/24: Minimal movement nor response to voice or stimulation. No improvement from debilitated state over past several weeks. Objective Vital Signs / I&O: Vital Signs 09/23/17 11:25 09/23/17 14:00 09/23/17 14:57 Temperature 98.7 F Pulse Rate 77 86 Respiratory Rate 19 Blood Pressure 166/94 H Pulse Oximetry 92 L 91 L 09/23/17 15:13 09/23/17 16:00 09/23/17 18:00 Temperature 98.9 F Pulse Rate 96 H 96 H Respiratory Rate 17 17 Blood Pressure 126/97 H Pulse Oximetry 96 97 09/23/17 20:00 09/23/17 20:08 09/23/17 20:14 Temperature 99.3 F Pulse Rate 96 H 98 H Respiratory Rate 17 14 14 Blood Pressure 163/89 H Pulse Oximetry 91 L 09/23/17 22:00 09/23/17 22:25 09/23/17 22:45 Temperature Pulse Rate 100 H Respiratory Rate 18 Blood Pressure Pulse Oximetry 91 L 91 L 09/24/17 00:00 09/24/17 02:00 09/24/17 04:00 Temperature 98.9 F 99.0 F Pulse Rate 88 86 86 Respiratory Rate 20 24 Blood Pressure 154/81 H 168/88 H Pulse Oximetry 09/24/17 05:43 09/24/17 05:46 09/24/17 06:00 Temperature Pulse Rate 86 Respiratory Rate 19 18 Blood Pressure Pulse Oximetry 91 L 90 L 09/24/17 08:01 Temperature Pulse Rate 92 H Respiratory Rate 21 Blood Pressure Pulse Oximetry 97 Intake & Output 09/23/17 09/24/17 09/24/17 18:59 06:59 18:59 Intake Total 1536 / 1536 2176 / 2176 Output Total 2780 / 2780 2280 / 2280 Balance -1244 / -1244 -104 / -104 Weight 74 kg Intake: IV 200 / 200 200 / 200 Unasyn Inj 3 GM In NS Inj 100 200 / 200 200 / 200 ML @ 200 mls/hr IV.SIG Q6H [facility] Rx#:[id number] Oral 0 / 0 Tube Feeding 556 / 556 556 / 556 Tube Irrigant 180 / 180 180 / 180 Water Bolus Amount 600 / 600 600 / 600 Anesthesia Amount 0 / 0 Other 640 / 640 Output: Urine 1450 / 1450 Stool 500 / 500 500 / 500 Estimated Blood Loss 300 / 300 Urine Amount (Catheter) 2250 / 2250 Indwelling Urethral Catheter 2250 / 2250 Wound Drainage 30 / 30 30 / 30 # 1 Posterior Neck [place] Drain 30 30 30 / 30 Other: Other Intake Source Saline Solution Date of Last Bowel Movement 09/23/17 09/23/17 Result Diagrams: 09/22/17 02:46 09/24/17 02:33 Objective Remarks: GENERAL: 77-year-old male currently ventilated via trach, responds weakly to stimulation but not able to move right upper extremity. Slight movement left upper extremity. SKIN: Warm and dry. No rash HEAD: Atraumatic. Normocephalic. Eyes moderately sunken. EYES: Pupils equal and round about 2 mm bilaterally reactive. No conjunctival icterus. No injection or drainage. ENT: No nasal bleeding or discharge. Mucous membranes dry. Mouth open. NECK: Trachea midline. Trach site mildly erythematous. CARDIOVASCULAR: Heart rate well controlled now. S1, S2 no S4. Without murmur. No JVD LUNGS: Coarse rhonchi appreciated bilaterally. Mild expiratory wheeze. Acceptable bilateral air movement. GASTROINTESTINAL: Abdomen soft, non-tender, nondistended. No guarding. Bowel sounds are present. MUSCULOSKELETAL: Extremities without significant peripheral edema. Well perfused. NEUROLOGICAL: Off all sedation. Minimal response or eye opening today. Able to extend left wrist weakly. Slight movement to command on right lower extremity. Assessment and Plan - Assessment and Plan Plan: A/P Assessment and Plan Neuro/Psych: Postoperative day #1 C2 hemilaminectomy, C3 through 5 lamina plasty secondary to cervical stenosis, spinal stenosis by Dr. Victor Acute toxic metabolic encephalopathy Quadriplegia Severe cervical spinal cord stenosis, with acute spinal cord injury MRI C-spine 09/15: There appears to be focal severe spinal canal stenosis at C4- 5. There is increased signal within the body of the spinal cord at this level most likely representing some myelomalacia. Moderate diffuse broad-based bulging at C3-4 with some mild increased signal in the spinal cord at this level. Moderate spinal canal stenosis at C6-C7 Bilateral facet arthritis at multiple levels. Extensive primary degenerative changes with disc degeneration and disc space narrowing throughout the entire cervical spine. Severe quadriplegia of the upper and lower extremities with some preserved residual sensory function. Neurosurgery Dr. Victor. Poor chance of neurological recovery for him Neurology Dr. Carvalho, discussed with neurosurgery today. Per his recommendations decrease to methylprednisolone succinate to 40 mg IV every 8 hours starting 09/20 with goal to rapidly taper off. Will decrease to 40 mg twice daily today 09/21. Previously on 250 mg every 6 hours started 09/[address] 08/23: 2 questionable tiny focal hemorrhages. MRI of brain 08/26 chronic small vessel ischemic and atrophic changes CT brain 09/05 revealed bilateral maxillary sinusitis. No other acute finding EEG 09/03 revealed severe encephalopathy. No epileptiform activity Acetaminophen 650 mg by tube every 6 hours as needed fever Oxycodone 5 mg every 4 hours scheduled Morphine sulfate 2 mg IV every 4 hours as needed pain 6 -10. PT/OT CV: Uncontrolled hypertension septic shock- resolved Atherosclerotic coronary artery disease Atrial fibrillation Elevated troponin downward trend Fluid overload We will give 2 doses of acetazolamide 250 mg IV 1 today. Discontinue furosemide Amiodarone Discontinued 09/07 secondary to bradycardia and pauses Continue metoprolol 25 mg p.o. q8h but increase to 50 mg twice daily Continue digoxin 0.125 mg daily.. 0.5 recheck level in a.m. 09/22. Will give 0.25 mg 1 at 1800 today (Home medication is NITRENDIPINE 10 mg by mouth daily) Currently off all vasopressors, mildly hypertensive Resp: Acute hypoxic hypercapnic respiratory failure COPD with exacerbation/Emphysema Trach site infection Bilateral pleural effusion/status post chest tube right-sided transudative in nature. Chest tube removed 09/04 Multiple bilateral pulmonary masses vs infiltrate, RML mass vs consolidation Pulmonary edema PRVC 16/550/1.03/24/49 Ventilator bundle Continue IV methylprednisolone succinate at increased dose as above for acute spinal cord injury, continue inhaled budesonide 0.5/2 1 inhalation twice daily Albuterol/ipratropium aerosols every 4 hours with albuterol aerosols every 2 hours as needed dyspnea CT pulmonary angiogram revealed 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 Right middle lobe 2.7 x 2.2 x 7's. Spiculated. Left lingula is 3.4 x 3.20 cm. Underlying pronounced emphysematous type changes throughout lung larios. Right pleural effusion. CT thorax 09/08 revealed multiple areas of consolidation bilaterally. Prior granulomatous disease. Focal consolidation or mass in the right middle lobe that appears unchanged. Lung mass biopsied on August 28 -results - CHRONIC INFLAMMATORY AND REACTIVE FIBROBLASTIC TISSUE CONTAINING ENTRAPPED BENIGN EPITHELIUM reconsult IR 09/08 for repeat biopsy Followed by Dr. Hardy/pulmonology. Reconsulted 09/08, recommended repeat CT in 4 weeks. Hold off the IR guided biopsy time due to unstable respiratory status, neuro status s/p percutaneous tracheostomy 09/08 ([facility]). Piperacillin/tazobactam and vancomycin for trach site infection. May remove trach sutures Status post thoracentesis left side 09/09 with 1 L fluid removed. No evidence of infection GI: Hypoalbuminemia C. difficile colitis s/p PEG 09/11. Tolerating tube feeds with Glucerna 1.5 at 55 cc an hour, free water flushes 300 cc every 6 hours Lansoprazole for GI prophylaxis Lactulose 30 cc twice daily for bowel regimen/hyperammonemia P.o. vancomycin 250 every 6 hours for C. difficile intestinal infection : Urinary retention, possible urinary stricture Acute kidney injury Maintain Larson catheter. Monitor urine output, Accurate I's and O's significant difficulty due to obstruction which may be urethral stricture which prevented serial i/o. replaced Larson catheter. Avoid nephrotoxic drugs Endo: Diabetes mellitus Hyperglycemia History of gout Sliding scale insulin with NovoLog high regimen to maintain euglycemia Currently on insulin detemir 10 units subcu twice daily Holding home medications of allopurinol 300 mg daily and colchicine 0.6 mg as needed Holding home medications of metformin 500 mg twice daily Heme: Leukocytosis Normocytic anemia Monitor CBC daily. Follow trends Coags within normal limits ID: Severe sepsis Trach site infection Healthcare associated pneumonia C. difficile colitis Appreciate ID input. Discontinue IV vancomycin, IV piperacillin/tazobactam switch to ampicillin/sulbactam by ID on 09/19. Continue fluconazole 200 mg daily and p.o. vancomycin 250 milligrams by tube 4 times daily Status post bronchoscopy 09/03 cultures negative Blood culture from 08/20/ 08/26 no growth to date Sputum 09/05 no growth Influenza a and B negative 09/07 Bronchial wash negative FEN: Hypernatremia Quarter normal saline with 20 mEq KCl 1 today. Replace electrolytes as clinically indicated per ICU electrolyte protocol. Received 20 milliequivalents potassium chloride today Monitor CMP On free water 300 every 6, improved. MSK: Elevated BMI PT evaluate and treat Weight loss encouraged Access Peripheral IV. Central line if indicated. Discontinue arterial line placed 09/19 in OR on 09/20. Prophylaxis -GI -lansoprazole.. DVT -SCD/heparin subcutaneous 5000 units 3 times a day. No signs of bleeding on MRI brain Overall impression: This gentleman remains weak and debilitated, functionally quadriparetic. We are unable to wean him from a ventilator and his general condition and strength is not improving. Long-term prognosis for a meaningful recovery is quite poor. The best we can probably hope for is a skilled facility and chronic ventilator dependency.
--- NOTE | 2017-09-24 11:06 | P.PNPAL ---
Reason for Visit Reason for visit: a. To assist with evaluation and management of symptoms including: dyspnea, pain, agitation b. To assist medical decision maker(s) with: better understanding of current medical conditions; weighing benefits/burdens of medical treatment options; making medical treatment decisions. Subjective Subjective/Interval History: Patient s/p C2-C3 to 5 laminoplasty for severe cervical spinal cord stenosis. Patient moving left arm a bit more. Neurosurgery team at bedside. Pt remains on vent. More tachypneic today, remains on CPAP. Pt open eyes, not following commands on my visit. Reportedly at other times pt does. No grimacing today to indicate pain. More tachypneic this morning, on vent via trach for dyspnea. Family/Friend Interactions: I used [employer] translation services to translate to Mandarin for Family Prior to family visit, I have discussed with neurosurgery and with critical medicine. I met with family. I reviewed pt clinical condition. Answered question. I reviewed all the challenges he faces. Review that neurologically, there is a strong possiblity that he well remain essentially quadraplegic. Neurosurgery had endorse that overall prognosis is poor. I reviewed with family the high probability those lung mass are cancer, and that given his current condition it is not likely he could tolerate treatment. This may the the best pt can get, and likely will have complications with various infection/ trach issues, aspiration risk, bed sores, deblity. Reemphasize overall prognosis is poor. We spoke about code status. Hospice and comfort measures/ compassionate withdraw was offered to family. Goals of care is as follows: == They would like to wait for the imaging on Friday and eval by neurosurgery. == They will change to alternate code of: No CPR/acls/shock/ compression. Continue intubation. == They would like pt's other son and grandson to come, before consideration of comfort measures. Pt's son already has visa, ask us to write letter to assisst. Objective Vital Signs: Vital Signs 09/23/17 11:25 09/23/17 14:00 09/23/17 14:57 Temperature 98.7 F Pulse Rate 77 86 Respiratory Rate 19 Blood Pressure 166/94 H Pulse Oximetry 92 L 91 L 09/23/17 15:13 09/23/17 16:00 09/23/17 18:00 Temperature 98.9 F Pulse Rate 96 H 96 H Respiratory Rate 17 17 Blood Pressure 126/97 H Pulse Oximetry 96 97 09/23/17 20:00 09/23/17 20:08 09/23/17 20:14 Temperature 99.3 F Pulse Rate 96 H 98 H Respiratory Rate 17 14 14 Blood Pressure 163/89 H Pulse Oximetry 91 L 09/23/17 22:00 09/23/17 22:25 09/23/17 22:45 Temperature Pulse Rate 100 H Respiratory Rate 18 Blood Pressure Pulse Oximetry 91 L 91 L 09/24/17 00:00 09/24/17 02:00 09/24/17 04:00 Temperature 98.9 F 99.0 F Pulse Rate 88 86 86 Respiratory Rate 20 24 Blood Pressure 154/81 H 168/88 H Pulse Oximetry 09/24/17 05:43 09/24/17 05:46 09/24/17 06:00 Temperature Pulse Rate 86 Respiratory Rate 19 18 Blood Pressure Pulse Oximetry 91 L 90 L 09/24/17 08:01 Temperature Pulse Rate 92 H Respiratory Rate 21 Blood Pressure Pulse Oximetry 97 Intake & Output 09/23/17 09/24/17 09/24/17 18:59 06:59 18:59 Intake Total 1536 / 1536 2176 / 2176 Output Total 2780 / 2780 2280 / 2280 Balance -1244 / -1244 -104 / -104 Weight 74 kg Intake: IV 200 / 200 200 / 200 Unasyn Inj 3 GM In NS Inj 100 200 / 200 200 / 200 ML @ 200 mls/hr IV.SIG Q6H [facility] Rx#:[id number] Oral 0 / 0 Tube Feeding 556 / 556 556 / 556 Tube Irrigant 180 / 180 180 / 180 Water Bolus Amount 600 / 600 600 / 600 Anesthesia Amount 0 / 0 Other 640 / 640 Output: Urine 1450 / 1450 Stool 500 / 500 500 / 500 Estimated Blood Loss 300 / 300 Urine Amount (Catheter) 2250 / 2250 Indwelling Urethral Catheter 2250 / 2250 Wound Drainage 30 30 # 1 Posterior Neck [place] Drain Other: Other Intake Source Saline Solution Date of Last Bowel Movement 09/23/17 09/23/17 Physical Exam: CONSTITUTIONAL/GENERAL: This is frail elderly gentlemen, trach peg. TUBES/LINES/DRAINS: ETT, ceja, PIV x2 BUE, OGT SKIN: No jaundice, rashes, or lesions. No wounds seen anteriorly. skin warm/ dry EYES: no eye opening. No injection or drainage. Fundi not examined. ENT: Nose without bleeding or purulent drainage. Limited oropharynx exam 2/2 . Trach. CARDIOVASCULAR: RRR without murmurs. No JVD. Peripheral pulses symmetric. Trace periph edema to hands. RESPIRATORY/CHEST: Tachpneic this morning. Trach.. Coarse breath sounds. Diminished sounds bases. GASTROINTESTINAL: Abdomen soft, non-tender, nondistended. No hepato-splenomegaly , or palpable masses. Bowel sounds present. TF infusing via OGT MUSCULOSKELETAL: Trace +BUE edema. +soft restraints BUE. No mottling or clubbing. NEUROLOGICAL: n vent. opening eyes, not following my commands on my visit. Able to move left forearm today. PSYCH: no apparent distress, limited assess 2/2 clinical condition Diagnostic Tests Laboratory: Laboratory Results - last 72 hr 09/21/17 09/21/17 09/21/17 12:16 16:32 19:57 WBC RBC Hgb Hct MCV MCH MCHC RDW Plt Count MPV Neut % (Auto) Lymph % (Auto) [place] % (Auto) Eos % (Auto) Baso % (Auto) Neut # (Auto) Lymph # (Auto) [place] # (Auto) Eos # (Auto) Baso # (Auto) WBC Differential Differential Comment Sodium Potassium Chloride Carbon Dioxide Anion Gap BUN Creatinine Estimated GFR POC Glucose 167 H 136 H 177 H Random Glucose Calcium Phosphorus Magnesium Total Bilirubin AST ALT Alkaline Phosphatase Total Protein Albumin Digoxin 09/22/17 09/22/17 09/22/17 00:35 02:46 02:46 WBC 19.9 H RBC 2.86 L Hgb 8.3 L Hct 26.0 L MCV 90.9 MCH 29.0 MCHC 31.9 L RDW 15.9 Plt Count 186 MPV 8.2 Neut % (Auto) 97.2 H Lymph % (Auto) 0.7 L [place] % (Auto) 1.9 Eos % (Auto) 0.0 Baso % (Auto) 0.2 Neut # (Auto) 19.3 H Lymph # (Auto) 0.1 L [place] # (Auto) 0.4 Eos # (Auto) 0.0 Baso # (Auto) 0.0 WBC Differential . Differential Comment Auto diff final Sodium 146 H Potassium 4.0 Chloride 108 H Carbon Dioxide 29.8 Anion Gap 8 BUN 48 H Creatinine 0.62 Estimated GFR Greater than 89 POC Glucose 144 H Random Glucose 153 H Calcium 8.2 L Phosphorus 3.4 Magnesium 2.5 Total Bilirubin 0.4 AST 13 L ALT 26 Alkaline Phosphatase 90 Total Protein 5.8 L Albumin 1.8 L Digoxin 0.9 09/22/17 09/22/17 09/22/17 04:04 08:23 12:28 WBC RBC Hgb Hct MCV MCH MCHC RDW Plt Count MPV Neut % (Auto) Lymph % (Auto) [place] % (Auto) Eos % (Auto) Baso % (Auto) Neut # (Auto) Lymph # (Auto) [place] # (Auto) Eos # (Auto) Baso # (Auto) WBC Differential Differential Comment Sodium Potassium Chloride Carbon Dioxide Anion Gap BUN Creatinine Estimated GFR POC Glucose 197 H 215 H 120 H Random Glucose Calcium Phosphorus Magnesium Total Bilirubin AST ALT Alkaline Phosphatase Total Protein Albumin Digoxin 09/22/17 09/22/17 09/23/17 16:46 22:32 02:58 WBC RBC Hgb Hct MCV MCH MCHC RDW Plt Count MPV Neut % (Auto) Lymph % (Auto) [place] % (Auto) Eos % (Auto) Baso % (Auto) Neut # (Auto) Lymph # (Auto) [place] # (Auto) Eos # (Auto) Baso # (Auto) WBC Differential Differential Comment Sodium 144 Potassium 4.2 Chloride 107 Carbon Dioxide 30.5 Anion Gap 7 BUN 41 H Creatinine 0.57 L Estimated GFR Greater than 89 POC Glucose 175 H 201 H Random Glucose 171 H Calcium 7.9 L Phosphorus Magnesium Total Bilirubin AST ALT Alkaline Phosphatase Total Protein Albumin Digoxin 09/23/17 09/23/17 09/23/17 03:23 08:21 12:17 WBC RBC Hgb Hct MCV MCH MCHC RDW Plt Count MPV Neut % (Auto) Lymph % (Auto) [place] % (Auto) Eos % (Auto) Baso % (Auto) Neut # (Auto) Lymph # (Auto) [place] # (Auto) Eos # (Auto) Baso # (Auto) WBC Differential Differential Comment Sodium Potassium Chloride Carbon Dioxide Anion Gap BUN Creatinine Estimated GFR POC Glucose 180 H 168 H 88 Random Glucose Calcium Phosphorus Magnesium Total Bilirubin AST ALT Alkaline Phosphatase Total Protein Albumin Digoxin 09/23/17 09/23/1709/24/18 16:46 23:44 02:33 WBC RBC Hgb Hct MCV MCH MCHC RDW Plt Count MPV Neut % (Auto) Lymph % (Auto) [place] % (Auto) Eos % (Auto) Baso % (Auto) Neut # (Auto) Lymph # (Auto) [place] # (Auto) Eos # (Auto) Baso # (Auto) WBC Differential Differential Comment Sodium 140 Potassium 4.0 Chloride 103 Carbon Dioxide 30.2 Anion Gap 7 BUN 36 H Creatinine 0.48 L Estimated GFR Greater than 89 POC Glucose 161 H 141 H Random Glucose 141 H Calcium 7.9 L Phosphorus Magnesium Total Bilirubin AST ALT Alkaline Phosphatase Total Protein Albumin Digoxin 09/24/17 08:39 WBC RBC Hgb Hct MCV MCH MCHC RDW Plt Count MPV Neut % (Auto) Lymph % (Auto) [place] % (Auto) Eos % (Auto) Baso % (Auto) Neut # (Auto) Lymph # (Auto) [place] # (Auto) Eos # (Auto) Baso # (Auto) WBC Differential Differential Comment Sodium Potassium Chloride Carbon Dioxide Anion Gap BUN Creatinine Estimated GFR POC Glucose 242 H Random Glucose Calcium Phosphorus Magnesium Total Bilirubin AST ALT Alkaline Phosphatase Total Protein Albumin Digoxin Result Diagrams: 09/22/17 02:46 09/24/17 02:33 Microbiology: Microbiology 09/16/17 16:55 Aerobic Blood Culture - Final Blood - Peripheral No growth in 5 days Anaerobic Blood Culture - Final No growth in 5 days 09/16/17 16:45 Aerobic Blood Culture - Final Blood - Peripheral No growth in 5 days Anaerobic Blood Culture - Final No growth in 5 days Assessment and Plan - Disease Oriented Problem List (1) Respiratory failure Comment: revealed 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 Right middle lobe 2.7 x 2.2 x 7's. Spiculated. Left lingula is 3.4 x 3.20 cm. COPD (2) SVT (supraventricular tachycardia) (3) Lung mass Comment: revealed 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 Right middle lobe 2.7 x 2.2 x 7's. Spiculated. Left lingula is 3.4 x 3.20 cm. 1st biopsy did not show malignancy. 2nd biopsy on hold. (4) Diabetes (5) Gout (6) Spinal stenosis - Symptom Scale (1) Dyspnea 0-10 Scale: Unable to quantify (2) Pain 0-10 Scale: Unable to quantify Pertinent Non-Medical Issues: Psychosocial: Retired. He was living at home with his Tommie Gutierrez and his son "Cristina Palmer. Recently returned from 3 month trip to [place]. Speaks Mandarin only. Spiritual: unk at this time Legal: Per [place] statutes legal decision maker proxy is pt's . It appears she may have been deferring to son but has been present for major decisions. Family appears to be working together. Ethical issues impacting care: no issues identified Important Contacts: Spencer Reilly [phone] Son "Cristina Palmer [phone] Prognosis: 77 yo critically ill pt with respiratory failure, possible malignant lung nodules, underlying diastolic heart failure and DM, intubated on vent and now with chest tube. Exact cause respiratory failure and lack of improvement is copd, likely lung cancer, general deconditioning. Discussed with icu who feels pt will be vent dependent. Attempts to wean from vent have been unsuccessful. Stable for time being but no real signs improvement in respiratory status. Prognosis for recovery overall is poor. . Prior to hospitalization he was independent and ambulatory. Regardless of whether he has a 2nd biopsy he is likely to require rehab/SNF placement after discharge. Pt remains at significant risk for further complications and setbacks. Prognosis is poor in terms of in terms of neurlogical improvement, discussed with neurosurgery. Code Status: Alternative Code (intubation only. No cpr/acls/compression/shock) Plan: CODE STATUS - Alternate Code. Intubation only. No cpr/acls/compression/shock. * LEGAL DECISION MAKER - per [place] statutes is proxy. Appears she defers a lot of her decisions to son, family all working together. * GOALS -palliative has met at length with patient's family multiple times. Met with family again. [employer] services was used to hold family meeting. I reviewed pt clinical condition. Answered question. I reviewed all the challenges he faces. Review that neurologically, there is a strong possibility that he well remain essentially quadriplegic. Neurosurgery had endorse that overall prognosis is poor. I reviewed with family the high probability those lung mass are cancer, and that given his current condition it is not likely he could tolerate treatment. This may the the best pt can get, and likely will have complications with various infection/ trach issues, aspiration risk, bed sores, deblity. Reemphasize overall prognosis is poor. We spoke about code status. Hospice and comfort measures/ compassionate withdraw was offered to family. Goals of care is as follows: == They would like to wait for the imaging on Friday and eval by neurosurgery. == They will change to alternate code of: No CPR/acls/shock/ compression. Continue intubation. == They would like pt's other son and grandson to come, before consideration of comfort measures. Pt's son already has visa, ask us to write letter to assisst. == Cont aggressive care for now. * SYMPTOMS * shortness of breath - 2/2 pleural effusions, underlying diastolic heart failure. Questionable malignancy, hx remote TB. On vent, weaning unsuccessful thus far. + vent asynchrony treated with sedatives. Status post tracheostomy. Pt will remain vent dependant per critical medicne. * pain - ?cause? presented with right side and thoracic pain. imaging showing lung nodules. BX benign, appears comfortable, no signs of pain on exam. Fentanyl availabe Appears comfortable today, not grimacing. * agitation - . on exam does not appear agitated. sedation per [facility]- Palliative care will continue to follow during hospital course as condition evolves to assist patient/decision maker with understanding of medical conditions, benefits/burdens of treatment options, clarification of goals of treatment, and will assist with symptoms of palliative concern. case d/w with neurosurgery and critical medicne. Attestation Attestation: To help prompt me to consider important information that might be impacting today's encounter and assessment, information from prior notes written by myself or my colleagues may have been "brought forward" into today's note. My signature on this note, however, is an attestation that I personally performed the exam, history, and/or decision-making noted today, and, unless otherwise indicated, the interactions with patient, family, and staff as well as the review of records all occurred today. I also attest that the listed assessment and stated plan reflect my best clinical judgment today based on the combination of historical information, prior notes, and today's exam/ interactions. When time spent is documented, it refers only to time spent today by the signer, or if indicated, combined time spent today by collaborating physician/nurse practitioner.
--- NOTE | 2017-09-24 11:18 | P.PNID ---
Subjective Remarks: Patient is a 77-year-old male, initially admitted to the hospital August 21 complaining of some right upper quadrant pain and some chest pain. There is mention that he has a chronic cough. He was not short of breath, no nausea or vomiting or diarrhea, and no fever and chills. Evaluation revealed multiple pulmonary masses, COPD, and bilateral pleural effusion. He underwent thoracentesis, and fluid cytology did not show any malignancy. He underwent lung biopsy and that also did not show any definite evidence of malignancy. On August 23 he had increasing shortness of breath, and was transferred to the ICU. He ended up getting intubated. Since then patient has been on the vent, and has had failure to wean. He underwent tracheostomy on September 08, and PEG placement on September 11. Patient has had multiple cultures done. All his blood cultures are negative. He had pleural fluid on August 25 and September 09 and they were negative. Sputum culture August 26, September 05, and September 07 were all showing normal respiratory tom. Patient's WBC has been elevated to more than 20,000. Today his white count went up to 27.1. He has had liquid stool, and on August 15 stool for C. difficile came back positive. Patient has been noted to have some foul smelling reddish gauge secretions from his tracheostomy. He has not been febrile. Infectious disease consultation has been requested to assist in evaluation and treatment with worsening sepsis, and trach site infection. Notes reviewed Had one fever yesterday, afebrile since On the vent Only with some movement in LUE Trach site C/S normal skin tom Sputum NF Stool volume not a lot WBC decreasing Antibiotics: Unasyn Vanco po Diflucan Lines: No evidence of infection Past Medical History: Diabetes Gout Hypertension Prostate CA Allergies/Adverse Reactions: Allergies No Known Allergies Allergy (Unknown, Uncoded 08/20/17 17:57) Objective Vital Signs 09/23/17 11:25 09/23/17 14:00 09/23/17 14:57 Temperature 98.7 F Pulse Rate 77 86 Respiratory Rate 19 Blood Pressure 166/94 H Pulse Oximetry 92 L 91 L 09/23/17 15:13 09/23/17 16:00 09/23/17 18:00 Temperature 98.9 F Pulse Rate 96 H 96 H Respiratory Rate 17 17 Blood Pressure 126/97 H Pulse Oximetry 96 97 09/23/17 20:00 09/23/17 20:08 09/23/17 20:14 Temperature 99.3 F Pulse Rate 96 H 98 H Respiratory Rate 17 14 14 Blood Pressure 163/89 H Pulse Oximetry 91 L 09/23/17 22:00 09/23/17 22:25 09/23/17 22:45 Temperature Pulse Rate 100 H Respiratory Rate 18 Blood Pressure Pulse Oximetry 91 L 91 L 09/24/17 00:00 09/24/17 02:00 09/24/17 04:00 Temperature 98.9 F 99.0 F Pulse Rate 88 86 86 Respiratory Rate 20 24 Blood Pressure 154/81 H 168/88 H Pulse Oximetry 09/24/17 05:43 09/24/17 05:46 09/24/17 06:00 Temperature Pulse Rate 86 Respiratory Rate 19 18 Blood Pressure Pulse Oximetry 91 L 90 L 09/24/17 08:01 Temperature Pulse Rate 92 H Respiratory Rate 21 Blood Pressure Pulse Oximetry 97 Intake & Output 09/23/17 09/24/17 09/24/17 18:59 06:59 18:59 Intake Total 1536 / 1536 2176 / 2176 Output Total 2780 / 2780 2280 / 2280 Balance -1244 / -1244 -104 / -104 Weight 74 kg Intake: IV 200 / 200 200 / 200 Unasyn Inj 3 GM In NS Inj 100 200 / 200 200 / 200 ML @ 200 mls/hr IV.SIG Q6H [facility] Rx#:[id number] Oral 0 / 0 Tube Feeding 556 / 556 556 / 556 Tube Irrigant 180 / 180 180 / 180 Water Bolus Amount 600 / 600 600 / 600 Anesthesia Amount 0 / 0 Other 640 / 640 Output: Urine 1450 / 1450 Stool 500 / 500 500 / 500 Estimated Blood Loss 300 / 300 Urine Amount (Catheter) 2250 / 2250 Indwelling Urethral Catheter 2250 / 2250 Wound Drainage 30 / 30 # 1 Posterior Neck [place] Drain Other: Other Intake Source Saline Solution Date of Last Bowel Movement 09/23/17 09/23/17 09/16/17 16:55 Blood - Peripheral Aerobic Blood Culture - Final No growth in 5 days 09/16/17 16:55 Blood - Peripheral Anaerobic Blood Culture - Final No growth in 5 days 09/16/17 16:45 Blood - Peripheral Aerobic Blood Culture - Final No growth in 5 days 09/16/17 16:45 Blood - Peripheral Anaerobic Blood Culture - Final No growth in 5 days Lab - Chemistry Results 09/22/17 09/22/17 09/22/17 12:28 16:46 22:32 Sodium Potassium Chloride Carbon Dioxide Anion Gap BUN Creatinine Estimated GFR POC Glucose 120 H 175 H 201 H Random Glucose Calcium 09/23/17 09/23/17 09/23/17 02:58 03:23 08:21 Sodium 144 Potassium 4.2 Chloride 107 Carbon Dioxide 30.5 Anion Gap 7 BUN 41 H Creatinine 0.57 L Estimated GFR Greater than 89 POC Glucose 180 H 168 H Random Glucose 171 H Calcium 7.9 L 09/23/17 09/23/17 09/23/17 12:17 16:46 23:44 Sodium Potassium Chloride Carbon Dioxide Anion Gap BUN Creatinine Estimated GFR POC Glucose 88 161 H 141 H Random Glucose Calcium 09/24/17 09/24/17 02:33 08:39 Sodium 140 Potassium 4.0 Chloride 103 Carbon Dioxide 30.2 Anion Gap 7 BUN 36 H Creatinine 0.48 L Estimated GFR Greater than 89 POC Glucose 242 H Random Glucose 141 H Calcium 7.9 L Imaging: ITS Impressions Cervical Spine MRI 09/15/17 00:00 CONCLUSION: 1. There appears to be focal severe spinal canal stenosis at C4-5. There is increased signal within the body of the spinal cord at this level most likely representing some myelomalacia. 2. Moderate diffuse broad-based bulging at C3-4 with some mild increased signal in the spinal cord at this level. 3. Moderate spinal canal stenosis at C6-C7 4. Bilateral facet arthritis at multiple levels. 5. Extensive primary degenerative changes with disc degeneration and disc space narrowing throughout the entire cervical spine. Cervical Spine X-Ray 09/19/17 00:00 CONCLUSION: Surgical hardware noted posteriorly at the C3-C5 levels. Chest X-Ray 09/22/17 06:00 CONCLUSION: 1. No significant interval change 2. Stable mild bilateral patchy airspace disease, more prominent on the left. 3. Chronic appearing bilateral pleural opacities. Physical Exam: Physical Examination GENERAL: awake and focusing, occ ntracking, on CPAP, not in respiratory distress. SKIN: Warm and dry. No generalized rash, no ecchymoses and no evidence of embolic lesions. HEAD: Atraumatic. Normocephalic. No temporal wasting, or tenderness. EYES: [place] conjunctiva. No petechia or hemorrhage. Pupils equal, round and reactive to light. Extraocular movements full and intact. No scleral icterus. No injection or drainage. EARS, NOSE AND THROAT: Nose without bleeding or purulent nasal discharge. Dry oral mucosa. NECK: Tracheostomy site much improved. CARDIOVASCULAR: Regular rate and rhythm. No murmurs, rubs or gallops heard RESPIRATORY: Coarse breath sounds equal bilaterally. No rales, wheezing or rhonchi ABDOMEN: Soft, non-tender, nondistended. Bowel sounds present and normoactive. No guarding. No rebound. No organomegaly. PEG site ok. EXTREMITIES: No clubbing, cyanosis. Has some nai pitting pedal edema. Well perfused and warm. NEUROLOGICAL: Awake, focusing PSYCHIATRIC: Unable to assess. LINE: No evidence of infection : Larson in place, urine looks clear Assessment and Plan - Plan IMPRESSION Sepsis, better - trach site infection - C diff colitis Trach site infection, procedure done 09/08 - much improved C diff colitis Respiratory failure, S/P trach Leukocytosis, improving RECOMMENDATION Continue Unasyn and give about 7 days - end date ordered in [employer] Stop Diflucan Continue po Vanco for C diff, plan 14 days Weaning per CCM Follow CBC Monitor progress Palliative medicine on case - discussing with family goals of treatment I will be available prn Please reconsult if with any new ID issue or question D/W Dr Srivastava D/W RN Spoke with son and daughter
[2017-09-24] MEDS: Oral Hygiene Kit OROPHARYNG SCH ×2 (13:18→16:20)
[2017-09-24] MEDS: Artificial Tears Opth Drops 15 ML Bottle EACH EYE SCH (13:18)
[2017-09-25 04:39] LABS: Anion Gap 10 meq/L (5-15); Blood Urea Nitrogen 32 mg/dL (7-18); Calcium 7.8 mg/dL (8.5-10.1); Carbon Dioxide 26.4 meq/L (21.0-32.0); Chloride 99 meq/L (98-107); Glomerular Filtration Rate Greater Than 89 mL/min (>89); Glucose,Random 98 mg/dL (74-106); Potassium 4.3 meq/L (3.5-5.1)
[2017-09-25 04:43] LABS: Sodium 135 meq/L (136-145)
--- NOTE | 2017-09-25 07:24 | P.PNCC ---
Subjective Subjective Remarks/Hospital Course: This is a 77-year-old Dominican male/Mandarin speaking only. Date of admission 08/21/2017. Date of consultation 08/23/2017. Past medical history is documented as hypertension, gout and diabetes mellitus. He is on no home medications. He does have remote history of tuberculosis 10 years ago. He quit tobacco use 20 years ago. He presented to [facility] on 08/21/2017 with a 3-4 days of intermittent pain in this region that acutely acutely worsened on 08/20 . They state the pain is in the right upper quadrant and radiates to the upper thorax and around his back. Hospital workup included a CT pulmonary angiogram which revealed bilateral emphysema. Multiple bilateral pulmonary nodules present with the largest in the right lung measuring 2.8 cm and the largest in the left lung measuring 2.6 cm. Severe compressive atelectasis in the right lower lobe. Moderate-sized pulmonary effusion. Pleural thickening in the anterior inferior hemothorax. Right paratracheal lymph node 15 mm. 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 No lytic bone lesions. Also noted significant coronary artery and aortic atherosclerotic calcifications. Patient was evaluated by hematology. Recommended lung biopsy when stable. She has become increasingly short of breath and was transferred from a [facility] to [facility] at 70%. Patient became less responsive and we were consulted. Patient required intubation/central line placement is currently having a right pigtail catheter placed to remove fluid from right lung. 08/24: hypotensive this AM requiring levophed at 8 mcg/min. drained 600cc of serosanguinous fluid out of chest tube. responded successfully to straight-leg challenge. intubated, sedated. remains very critically ill. 08/25: Afebrile. Off all antihypertensives and vasopressin. Currently normal saline at 100 cc an hour. On propofol and fentanyl drips. 08/26: Afebrile. No tonsillar creatinine currently at 20 cc an hour. Remains on increased propofol drip at 40 mcg/kg/min secondary to severe agitation overnight and on attempted spontaneous breathing trials. Will try dexmedetomidine attempt to wean today. 08/27: Worsening lung infiltrates associated with hydration. Afebrile. Known diastolic dysfunction. He appears to be exquisitely sensitive to fluid balance. Presently converting to Precedex and will try spontaneous breathing trials. 08/28: Continued worsening bilateral lung infiltrates. IV fluid has been stopped yesterday, will add additional diuretics. Diffusion gradient worsened, unable to wean from ventilator. 08/29: Mild improvement in lung infiltrates after diuresis without harming renal function. Remains ventilator dependent. Biopsy yesterday, results pending. 08/30: Worsening gas exchange with deteriorating diffusion capacity and requirements for increased inspired oxygen concentration. This all despite 2 L diuresis. Await pathology results. 08/31: Lung infiltrates resolving with diuresis. Continues to behave like diastolic heart failure. Contraction alkalosis is developing will add a carbonic anhydrase inhibitor for a couple of days. T-max 100.8 but for the most part he has been afebrile. Lung mass does appear to be a malignancy. Agree with attempt to rebiopsy at some point. We will continue to diuresis until his kidneys squeak. At 7-10 days of antibiotics it may be best to stop treatment and reculture for fevers. I will defer to the pulmonary service. 09/01: remains intubated and sedated. continues to fail any weaning attempts. consulted palliative to assist in goals of care: may need tracheostomy for further aggressive care. 09/02: palliative meeting with family again today. no improvements. it has been greater than 10 days of full empiric antibiotics: will discontinue and re- culture for fever. 09/03: chest tube on water seal with minimal output. cxr unchanged. CT removed today on my eval. no other changes or improvements. unlikely to have favorable outcome. quite hypercarbic despite full vent support: will make changes to ventilation to assist with hypercarbic. 09/04: Remains sedated, orally intubated on mechanical ventilation. 09/05: Remains sedated, orally intubated on mechanical ventilation. Failed CPAP trials yesterday. 09/06: Sedated, arousable, orally intubated on mechanical ventilation. Failed CPAP trials yesterday. Family wishes to continue aggressive care and desire trach and PEG. 09/07: T-max 100.3. One bowel movement yesterday. Failed CPAP trials yesterday. OG tube plugged overnight and able to place new feeding tube at the present time. We will switch all medications to IV at the present time including amiodarone drip at 0.5 mg/min. Check digoxin level prior to resuming IV. 09/08: T-max 99.2. Currently afebrile. One bowel movement overnight. Plan for percutaneous tracheostomy today. GI consult for PEG placement. CT chest revealed small bilateral pleural effusions. Persistent right middle lobe mass which we will consult IR again for rebiopsy. Will ask pulmonary to see again 09/09: Remains on full vent support more critical today increasing oxygen requirement FiO2 at 65 of have increase PEEP to 10 to attempt wean oxygen. Air entry markedly diminished bilaterally. Chest x-ray shows bilateral prominent interstitial infiltrates. Fluid up by approximately 10 kg. I will discontinue half-normal saline. Lasix 40 mg IV 1 09/10: Patient remains critical showing agonal breathing on the ventilator. Bilateral coarse breath sounds. Chest x-ray shows bilateral patchy infiltrates improved left effusion after thoracentesis and removal of 1 L of fluid. However FiO2 requirement remains high at 65%. UO 1.5L in 24 hours. Lab work pending. IV steroids started for probable COPD exacerbation given history of smoking 09/11: Remains critical but slightly more stable. Breathing pattern has improved and oxygenation has improved after starting IV steroids for COPD exacerbation and thoracentesis on 09/09/2017. Currently FiO2 down to 50%, PEEP at 10. We will further wean. Sodium increased to 151 start quarter normal saline, increase Lasix. Family wished to proceed with full code. PEG today 09/12: Remains intubated sedated with propofol. Urine output 1.8 L. BUN/ creatinine slightly increased today 72/1.34. Will reduce Lasix dose also reduce Solu-Medrol. Vent dyssynchrony has improved but FiO2 remains high at 55% 09/13: Off all sedation for 24 hours. Apparently patient notes has had one family is at bedside asking questions. BUN/creatinine slightly improved 71/ 1.14 from 72/1.34. WBC count slightly improved to 20.7. FiO2 at 45% chest x- ray shows some interval improvement. Also Na improved to 147 09/14: Remains intubated off sedation. Slightly tachypneic on pressure support . Urine output approximately 1500 mL in 24 hours 09/15: Patient clearly more awake today seems to understand some of the commands. Concern about quadriparesis patient is not able to withdrawal to pain 4, even though it appears he does feel the pain. MRI of the C-spine ordered. Neurology consulted. Otherwise BUN/creatinine slightly improved 09/16: Patient remains quadriparetic, slight movement of the left upper extremity. MRI of the C-spine shows focal severe spinal canal stenosis at C4-5 , with increased signal within the body of the spinal cord at this level most likely representing some myelomalacia. Moderate diffuse broad-based bulging at C3-4 with some mild increased signal in the spinal cord at this level. Moderate spinal canal stenosis at C6-C7. Also there is evidence of tracheostomy site infection. Explained MRI findings to son and patient's using electronic barley steeper. Discussed with Dr. Carvalho. Increase Solu-Medrol to 250 mg IV every 6 hours. Consult neurosurgery 09/17: Remains septic, remains quadriplegic. Slight movements of the left upper extremity noted. C. difficile positive p.o. vancomycin added by ID yesterday. Appreciate input from Dr. Victor. Patient hs severe upper cervical stenosis with myelopathy and resultant SCI/severe quadriplegia of the upper and lower extremities. Prognosis very poor per neurosurgery 09/18: Afebrile. Tube feeds are at goal. No change in neurological status. Left upper extremity movement only. 09/19: Resting comfortably in bed in no acute distress. Noted able to squeeze left hand in slightly squeeze right hand. Will move bilateral lower extremities slightly to command. Positive BM. 09/20: Status post C2 hemilaminectomy, C3 through [address] Victor yesterday. Tolerated procedure well. Restarting tube feeding today. Verbalizing words and does move left upper extremity spontaneously. SUBJECTIVE: 09/21: Afebrile. Neurological unchanged overnight. No bowel movement since 09/18. Tolerating tube feeds at goal. Discussed with care plan via spanish interpreter/translator yesterday and she expressed understanding. 09/22: Stable hemodynamics and acceptable gas exchange. Remains weak.Unable to wean from ventilator. 09/23: Remains effectively quadriplegic. Unable to wean from ventilator due to inadequate respiratory stamina. 09/24: Minimal movement nor response to voice or stimulation. No improvement from debilitated state over past several weeks. 09/25: Opens eyes but not to command. Tolerate CPAP trials for several hours now. Objective Vital Signs / I&O: Vital Signs 09/24/17 08:00 09/24/17 08:01 09/24/17 10:00 Temperature 98.8 F Pulse Rate 92 H 92 H 110 H Respiratory Rate 24 21 Blood Pressure 168/90 H Pulse Oximetry 95 97 09/24/17 12:00 09/24/17 14:46 09/24/17 15:38 Temperature 98.8 F Pulse Rate 79 82 Respiratory Rate 23 22 Blood Pressure 168/88 H Pulse Oximetry 95 93 L 09/24/17 16:00 09/24/17 18:00 09/24/17 19:50 Temperature 98.9 F Pulse Rate 91 H 77 Respiratory Rate 24 24 Blood Pressure 150/86 H Pulse Oximetry 93 L 93 L 09/24/17 19:54 09/24/17 20:00 09/24/17 22:00 Temperature 98.1 F Pulse Rate 91 H 100 H 100 H Respiratory Rate 18 23 Blood Pressure 140/91 H Pulse Oximetry 100 09/24/17 22:45 09/24/17 23:43 09/25/17 00:00 Temperature 97.7 F Pulse Rate 87 Respiratory Rate 22 22 Blood Pressure 160/92 H Pulse Oximetry 96 96 99 09/25/17 02:00 09/25/17 03:58 09/25/17 04:00 Temperature 97.7 F Pulse Rate 87 92 H Respiratory Rate 24 16 Blood Pressure 145/77 H Pulse Oximetry 96 09/25/17 06:00 Temperature Pulse Rate 100 H Respiratory Rate Blood Pressure Pulse Oximetry Intake & Output 09/24/17 09/25/17 09/25/17 18:59 06:59 18:59 Intake Total 1755 / 1755 2027 / 8 Output Total 2054 1005 / 1005 Balance -300 / -300 1023 / 1023 Weight 69.3 kg Intake: IV 200 / 200 Unasyn Inj 3 GM In NS Inj 100 200 / 200 ML @ 200 mls/hr IV.SIG Q6H MICHELET Rx#:[id number] Oral 0 / 0 Tube Feeding 775 / 775 668 / 668 Tube Irrigant 180 / 180 120 / 120 Water Bolus Amount 600 / 600 600 / 600 Anesthesia Amount 0 / 0 Other 640 / 640 Output: Urine 600 / 600 Stool 100 / 100 100 / 100 Estimated Blood Loss 300 / 300 Urine Amount (Catheter) 1949 Indwelling Urethral Catheter 1949 Wound Drainage 5 / 5 5 / 5 # 1 Posterior Neck [place] Drain 5 / 5 5 / 5 Other: Other Intake Source Saline Solution Date of Last Bowel Movement 09/24/17 09/25/17 Result Diagrams: 09/22/17 02:46 09/25/17 02:57 Objective Remarks: GENERAL: 77-year-old male currently ventilated via trach, responds weakly to stimulation but not able to move right upper extremity. Slight movement left upper extremity. SKIN: Warm and dry. No rash HEAD: Atraumatic. Normocephalic. Eyes moderately sunken. EYES: Pupils equal and round about 2 mm bilaterally reactive. No conjunctival icterus. No injection or drainage. ENT: No nasal bleeding or discharge. Mucous membranes dry. Mouth open. NECK: Trachea midline. Trach site mildly erythematous. CARDIOVASCULAR: Heart rate well controlled now. S1, S2 no S4. Without murmur. No JVD LUNGS: Coarse rhonchi appreciated bilaterally. Mild expiratory wheeze. Acceptable bilateral air movement. GASTROINTESTINAL: Abdomen soft, non-tender, nondistended. No guarding. Bowel sounds are present. MUSCULOSKELETAL: Extremities without significant peripheral edema. Well perfused. NEUROLOGICAL: Off all sedation. Minimal response or eye opening today. Able to extend left wrist weakly. Slight movement to command on right lower extremity. Assessment and Plan - Assessment and Plan Plan: A/P Assessment and Plan Neuro/Psych: Postoperative day #1 C2 hemilaminectomy, C3 through 5 lamina plasty secondary to cervical stenosis, spinal stenosis by Dr. Victor Acute toxic metabolic encephalopathy Quadriplegia Severe cervical spinal cord stenosis, with acute spinal cord injury MRI C-spine 09/15: There appears to be focal severe spinal canal stenosis at C4- 5. There is increased signal within the body of the spinal cord at this level most likely representing some myelomalacia. Moderate diffuse broad-based bulging at C3-4 with some mild increased signal in the spinal cord at this level. Moderate spinal canal stenosis at C6-C7 Bilateral facet arthritis at multiple levels. Extensive primary degenerative changes with disc degeneration and disc space narrowing throughout the entire cervical spine. Severe quadriplegia of the upper and lower extremities with some preserved residual sensory function. Neurosurgery Dr. Victor. Poor chance of neurological recovery for him Neurology Dr. Carvalho, discussed with neurosurgery today. Per his recommendations decrease to methylprednisolone succinate to 40 mg IV every 8 hours starting 09/20 with goal to rapidly taper off. Will decrease to 40 mg twice daily today 09/21. Previously on 250 mg every 6 hours started 09/[address] 08/23: 2 questionable tiny focal hemorrhages. MRI of brain 08/26 chronic small vessel ischemic and atrophic changes CT brain 09/05 revealed bilateral maxillary sinusitis. No other acute finding EEG 09/03 revealed severe encephalopathy. No epileptiform activity Acetaminophen 650 mg by tube every 6 hours as needed fever Oxycodone 5 mg every 4 hours scheduled Morphine sulfate 2 mg IV every 4 hours as needed pain 6 -10. PT/OT CV: Uncontrolled hypertension septic shock- resolved Atherosclerotic coronary artery disease Atrial fibrillation Elevated troponin downward trend Fluid overload We will give 2 doses of acetazolamide 250 mg IV 1 today. Discontinue furosemide Amiodarone Discontinued 09/07 secondary to bradycardia and pauses Continue metoprolol 25 mg p.o. q8h but increase to 50 mg twice daily Continue digoxin 0.125 mg daily.. 0.5 recheck level in a.m. 09/22. Will give 0.25 mg 1 at 1800 today (Home medication is NITRENDIPINE 10 mg by mouth daily) Currently off all vasopressors, mildly hypertensive Resp: Acute hypoxic hypercapnic respiratory failure COPD with exacerbation/Emphysema Trach site infection Bilateral pleural effusion/status post chest tube right-sided transudative in nature. Chest tube removed 09/04 Multiple bilateral pulmonary masses vs infiltrate, RML mass vs consolidation Pulmonary edema PRVC 16/550/1.03/24/49 Ventilator bundle Continue IV methylprednisolone succinate at increased dose as above for acute spinal cord injury, continue inhaled budesonide 0.5/2 1 inhalation twice daily Albuterol/ipratropium aerosols every 4 hours with albuterol aerosols every 2 hours as needed dyspnea CT pulmonary angiogram revealed 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 Right middle lobe 2.7 x 2.2 x 7's. Spiculated. Left lingula is 3.4 x 3.20 cm. Underlying pronounced emphysematous type changes throughout lung larios. Right pleural effusion. CT thorax 09/08 revealed multiple areas of consolidation bilaterally. Prior granulomatous disease. Focal consolidation or mass in the right middle lobe that appears unchanged. Lung mass biopsied on August 28 -results - CHRONIC INFLAMMATORY AND REACTIVE FIBROBLASTIC TISSUE CONTAINING ENTRAPPED BENIGN EPITHELIUM reconsult IR 09/08 for repeat biopsy Followed by Dr. Hardy/pulmonology. Reconsulted 09/08, recommended repeat CT in 4 weeks. Hold off the IR guided biopsy time due to unstable respiratory status, neuro status s/p percutaneous tracheostomy 09/08 ([place]). Piperacillin/tazobactam and vancomycin for trach site infection. May remove trach sutures Status post thoracentesis left side 09/09 with 1 L fluid removed. No evidence of infection GI: Hypoalbuminemia C. difficile colitis s/p PEG 09/11. Tolerating tube feeds with Glucerna 1.5 at 55 cc an hour, free water flushes 300 cc every 6 hours Lansoprazole for GI prophylaxis Lactulose 30 cc twice daily for bowel regimen/hyperammonemia P.o. vancomycin 250 every 6 hours for C. difficile intestinal infection : Urinary retention, possible urinary stricture Acute kidney injury Maintain Larson catheter. Monitor urine output, Accurate I's and O's significant difficulty due to obstruction which may be urethral stricture which prevented serial i/o. replaced Larson catheter. Avoid nephrotoxic drugs Endo: Diabetes mellitus Hyperglycemia History of gout Sliding scale insulin with NovoLog high regimen to maintain euglycemia Currently on insulin detemir 10 units subcu twice daily Holding home medications of allopurinol 300 mg daily and colchicine 0.6 mg as needed Holding home medications of metformin 500 mg twice daily Heme: Leukocytosis Normocytic anemia Monitor CBC daily. Follow trends Coags within normal limits ID: Severe sepsis Trach site infection Healthcare associated pneumonia C. difficile colitis Appreciate ID input. Discontinue IV vancomycin, IV piperacillin/tazobactam switch to ampicillin/sulbactam by ID on 09/19. Continue fluconazole 200 mg daily and p.o. vancomycin 250 milligrams by tube 4 times daily Status post bronchoscopy 09/03 cultures negative Blood culture from 08/20/ 08/26 no growth to date Sputum 09/05 no growth Influenza a and B negative 09/07 Bronchial wash negative FEN: Hypernatremia Quarter normal saline with 20 mEq KCl 1 today. Replace electrolytes as clinically indicated per ICU electrolyte protocol. Received 20 milliequivalents potassium chloride today Monitor CMP On free water 300 every 6, improved. MSK: Elevated BMI PT evaluate and treat Weight loss encouraged Access Peripheral IV. Central line if indicated. Discontinue arterial line placed 09/19 in OR on 09/20. Prophylaxis -GI -lansoprazole.. DVT -SCD/heparin subcutaneous 5000 units 3 times a day. No signs of bleeding on MRI brain Overall impression: This gentleman remains weak and debilitated, functionally quadriparetic. We are unable to wean him from a ventilator and his general condition and strength is not improving. Long-term prognosis for a meaningful recovery is quite poor. The best we can probably hope for is a skilled facility and chronic ventilator dependency. Family has made him DNR status.
--- NOTE | 2017-09-25 10:22 | P.PNNS ---
Subjective Interval history: 09/16: 77-year-old male admitted on August 21, 2017 with initial complaint of chest pain and right upper quadrant abdominal pain. His initial evaluation revealed multiple pulmonary lesions with pleural effusion. However cytology from thoracentesis and lung biopsy were negative for malignancy. He initially required a tracheostomy placement. He has been on ventilatory support, with sedation recently weaned over the past few days. There was noted within the past day or 2 that he has not been moving his extremities, and an MRI of the cervical spine was subsequently obtained on 09/15/2017. This has revealed severe cervical stenosis with significant abnormal signal intensity within the cord. Review of his records indicates the patient to be moving all extremities during the first week or so of his hospitalization, although it is difficult to determine the grade of his motor function, with the patient very ill and apparently generally weak upon his initial presentation. Physical therapy notes reviewed, however therapy has not been able to consistently work with the patient due to his pulmonary problems and subsequent intubation and sedation. 06/18: Pt awake. Not verbalizing. Not following commands consistently tries to stick out tongue to command. 09/18: The patient is awake in bed. He is trached and on CPAP/PSV settings. He does look at this practitioner and tracks. He did not follow any commands. There was a trace of left foot movement to noxious stimulation. He did have facial grimacing also to noxious stimulation. Nursing reports that he did stick out his tongue after she demonstrated it. She also says that the patient squeezed with the left hand once but did not repeat it. 09/19: The patient went for a C3-5 laminoplasty and post-operatively was transferred back to the ISC unit. 09/20: Patient intubated 09/22: Intubated. Off sedation for examination 09/24: When seen this morning the patient is awake. He has no sedation infusing. He is trached and on CPAP. He is tachypneic and Nursing reports that he is having a harder time handling it today. She reported that he was moving the left upper spontaneously earlier. During evaluation he did not response to any stimuli but subsequently did move the left hand fingers slightly. Dr Srivastava with Palliative Care is to meet with the patient's son this morning. 09/25: Spoke with Palliative Care this morning who said family has made the patient essentially a no code. He believes they are leaning toward withdrawal but are waiting for a family member to travel here. The patient is awake and alert when seen. He is seen moving the left hand spontaneously after stimulation but has no response to noxious stimulation with the other extremities. <Roc Castillo E - Last Filed: 09/25/17 10:33> Physical Exam Vital signs: Vital Signs 09/24/17 12:00 09/24/17 14:46 09/24/17 15:38 Temperature 98.8 F Pulse Rate 79 82 Respiratory Rate 23 22 Blood Pressure 168/88 H Pulse Oximetry 95 93 L 09/24/17 16:00 09/24/17 18:00 09/24/17 19:50 Temperature 98.9 F Pulse Rate 91 H 77 Respiratory Rate 24 24 Blood Pressure 150/86 H Pulse Oximetry 93 L 93 L 09/24/17 19:54 09/24/17 20:00 09/24/17 22:00 Temperature 98.1 F Pulse Rate 91 H 100 H 100 H Respiratory Rate 18 23 Blood Pressure 140/91 H Pulse Oximetry 100 09/24/17 22:45 09/24/17 23:43 09/25/17 00:00 Temperature 97.7 F Pulse Rate 87 Respiratory Rate 22 22 Blood Pressure 160/92 H Pulse Oximetry 96 96 99 09/25/17 02:00 09/25/17 03:58 09/25/17 04:00 Temperature 97.7 F Pulse Rate 87 92 H Respiratory Rate 24 16 Blood Pressure 145/77 H Pulse Oximetry 96 09/25/17 06:00 09/25/17 07:56 Temperature Pulse Rate 100 H 95 H Respiratory Rate 25 H Blood Pressure Pulse Oximetry 96 Intake & Output 09/24/17 09/25/17 09/25/17 18:59 06:59 18:59 Intake Total 1755 / 1755 2027 Output Total 2054 1005 / 1005 Balance -300 / -300 1023 / 1023 Weight 69.3 kg Intake: IV 200 / 200 Unasyn Inj 3 GM In NS Inj 100 200 / 200 ML @ 200 mls/hr IV.SIG Q6H [facility] Rx#:[id number] Oral 0 / 0 Tube Feeding 775 / 775 668 / 668 Tube Irrigant 180 / 180 120 / 120 Water Bolus Amount 600 / 600 600 / 600 Anesthesia Amount 0 / 0 Other 640 / 640 Output: Urine 600 / 600 Stool 100 / 100 100 / 100 Estimated Blood Loss 300 / 300 Urine Amount (Catheter) 1949 Indwelling Urethral Catheter 1949 Wound Drainage 5 / # 1 Posterior Neck [place] Drain Other: Other Intake Source Saline Solution Date of Last Bowel Movement 09/24/17 09/25/17 Narrative: GENERAL: Awake & alert. Trached and on CPAP/PSV settings. His respiratory rate does increase w/noxious stimulation. HEENT: Normocephalic, atraumatic. Pupils 3 mm irregular & reactive, does track. MUSCULOSKELETAL: No evident clubbing or deformity. Dependent edema to all extremities. Slight left hand finger movement spontaneously after stimulation. NEUROLOGICAL: Awake. Trached, nonverbal. Pupils 3 mm irregular & reactive, does track. Did not follow any commands. No response to command or local noxious stimulation but subsequently moved the left hand fingers slightly on his own. - Urinary Catheter Management Indwelling Urethral Catheter Cath placed during this visit: yes Reason for continuing: Acute urinary retention Insertion date: 08/27/17 Insertion time: 17:00 <Roc Castillo E - Last Filed: 09/25/17 10:33> Vital signs: Vital Signs 09/27/17 20:00 09/27/17 20:15 09/27/17 22:00 Temperature 97.9 F Pulse Rate 84 84 73 Respiratory Rate 24 18 Blood Pressure 147/76 H Pulse Oximetry 100 09/27/17 23:32 09/28/17 00:00 09/28/17 02:00 Temperature 96.4 F L Pulse Rate 74 89 Respiratory Rate 25 H Blood Pressure 134/66 Pulse Oximetry 99 100 09/28/17 04:00 09/28/17 06:00 09/28/17 08:10 Temperature 98.4 F Pulse Rate 90 82 80 Respiratory Rate 24 23 Blood Pressure 131/70 Pulse Oximetry 100 100 09/28/17 09:00 09/28/17 15:04 Temperature Pulse Rate Respiratory Rate 27 H 25 H Blood Pressure Pulse Oximetry Intake & Output 09/28/17 09/28/17 09/29/17 06:59 18:59 06:59 Intake Total 1140 / 1140 Output Total 1949 Balance -810 / -810 Weight 68.2 kg Intake: Tube Feeding 540 / 540 Water Bolus Amount 600 / 600 Output: Urine Amount (Catheter) 1949 Indwelling Urethral Catheter 1949 Other: Date of Last Bowel Movement 09/28/17 - Urinary Catheter Management Indwelling Urethral Catheter Cath placed during this visit: no <Anuj Victor - Last Filed: 09/28/17 19:16> Assessment and Plan - Plan Impression: 1. 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 2. Sepsis 3. Respiratory failure, tracheostomy in place. Now on CPAP 09/23: "Remains with flaccid quadriplegia-no definite changes compared to preoperative." - Dr Victor at 1823 Patient w/o any change neurologically. Slight spontaneous movement of left hand fingers after noxious stimulation but no response w/any extremity to command or noxious stimulation. Reviewed labs for today. Sodium 135. eGFR >89. POD #6 () s/p: C3-5 laminoplasty Plan: Primary & critical care management per [employer]. Palliative Care following. [place] cervical collar at all times. Postoperative MRI cervical spine w/o & w/contrast. <Roc Castillo - Last Filed: 09/25/17 10:33> - Attending Attestation The exam, history, and the medical decision-making described in the above note were completed with the assistance of the mid-level provider. I reviewed and agree with the findings presented. I attest that I had a [id number] encounter with the patient on the same day, and personally performed and documented my assessment and findings in the medical record. Patient's neurologic status unchanged over the past couple of days. Follow-up MRI 09/25/2017 images reveal good central decompression of the spinal cord in the mid to upper cervical region. There may be a small amount of epidural hematoma along the left side without significant canal compromise. There is significant thinning of the spinal cord at the previous C4-5 stenotic region with persistent increased signal intensity not significantly changed compared to preoperative study. <Anuj Victor - Last Filed: 09/28/17 19:16>
[2017-09-25] MEDS: Ampicillin/Sulbactam Inj 3 GM in Sodium Chloride 0.9% Inj 100 ML IV.SIG SCH ×3 (10:53→21:01)
[2017-09-25] MEDS: Beneprotein Powder Packet G-TUBE SCH ×2 (10:54→18:20)
[2017-09-25] MEDS: MethylPREDNISolone Sod Succinate Inj 40 MG/ML Vial IV.PUSH SCH ×2 (10:55→21:03)
[2017-09-25] MEDS: Chlorhexidine 0.12% Oral Kit 15 ML UDC SWISH-SPIT SCH (10:55)
[2017-09-25] MEDS: Metoprolol Tartrate 50 MG Tablet PO SCH ×2 (10:55→21:00)
[2017-09-25] MEDS: Senna/Docusate Sodium 8.6/50 MG Tablet PO SCH (10:55)
[2017-09-25] MEDS: Insulin Detemir Inj 1,000 UNIT/10 ML Vial SQ SCH (10:55)
[2017-09-25] MEDS: Insulin NovoLOG Aspart Correctional Sugar Inj SQ SCH ×2 (11:29→16:45)
[2017-09-25] MEDS: Oral Hygiene Kit OROPHARYNG SCH ×2 (13:37→18:39)
--- NOTE | 2017-09-25 14:49 | P.PNPAL ---
Reason for Visit Reason for visit: a. To assist with evaluation and management of symptoms including: dyspnea, pain, b. To assist medical decision maker(s) with: better understanding of current medical conditions; weighing benefits/burdens of medical treatment options; making medical treatment decisions. Subjective Subjective/Interval History: Patient s/p C2-C3 to 5 laminoplasty for severe cervical spinal cord stenosis. Patient moving left arm a bit more. Remains intubated. Pt remains confused, not consistently following directions. He is moving left hand spontaneously. He nods a bit when ask if he was in pain, but other just look at me confused. Family/Friend Interactions: Family at bedside, no change on goals of care. Objective Vital Signs: Vital Signs 09/24/17 14:46 09/24/17 15:38 09/24/17 16:00 Temperature 98.9 F Pulse Rate 82 91 H Respiratory Rate 22 24 Blood Pressure 150/86 H Pulse Oximetry 93 L 93 L 09/24/17 18:00 09/24/17 19:50 09/24/17 19:54 Temperature Pulse Rate 77 91 H Respiratory Rate 24 18 Blood Pressure Pulse Oximetry 93 L 09/24/17 20:00 09/24/17 22:00 09/24/17 22:45 Temperature 98.1 F Pulse Rate 100 H 100 H Respiratory Rate 23 22 Blood Pressure 140/91 H Pulse Oximetry 100 96 09/24/17 23:43 09/25/17 00:00 09/25/17 02:00 Temperature 97.7 F Pulse Rate 87 87 Respiratory Rate 22 Blood Pressure 160/92 H Pulse Oximetry 96 99 09/25/17 03:58 09/25/17 04:00 09/25/17 06:00 Temperature 97.7 F Pulse Rate 92 H 100 H Respiratory Rate 24 16 Blood Pressure 145/77 H Pulse Oximetry 96 09/25/17 07:56 09/25/17 08:00 09/25/17 10:00 Temperature 99.0 F Pulse Rate 95 H 96 H 104 H Respiratory Rate 25 H Blood Pressure 144/83 H Pulse Oximetry 96 09/25/17 11:23 09/25/17 12:00 Temperature 98.8 F Pulse Rate 71 Respiratory Rate 21 Blood Pressure 148/78 H Pulse Oximetry 98 Intake & Output 09/24/17 09/25/17 09/25/17 18:59 06:59 18:59 Intake Total 1755 / 1755 2127 / 2128 250 / 250 Output Total 2054 / 2054 1005 / 1005 Balance -300 / -300 1123 / 1123 250 / 250 Weight 69.3 kg Intake: IV 200 / 200 100 / 100 100 / 100 Unasyn Inj 3 GM In NS Inj 100 200 / 200 100 / 100 100 / 100 ML @ 200 mls/hr IV.SIG Q6H [facility] Rx#:[id number] Oral 0 / 0 Tube Feeding 775 / 775 668 / 668 Tube Irrigant 180 / 180 120 / 120 Water Bolus Amount 600 / 600 600 / 600 150 / 150 Anesthesia Amount 0 / 0 Other 640 / 640 Output: Urine 600 / 600 Stool 100 / 100 100 / 100 Estimated Blood Loss 300 / 300 Urine Amount (Catheter) 1949 Indwelling Urethral Catheter 1949 Wound Drainage 5 / 5 / 5 # 1 Posterior Neck [place] Drain 5 Other: Other Intake Source Saline Solution Date of Last Bowel Movement 09/24/17 09/25/17 09/25/17 Physical Exam: CONSTITUTIONAL/GENERAL: This is frail elderly gentlemen, trach peg. TUBES/LINES/DRAINS: ETT, ceja, PIV x2 BUE, OGT SKIN: No jaundice, rashes, or lesions. No wounds seen anteriorly. skin warm/ dry EYES: no eye opening. No injection or drainage. Fundi not examined. ENT: Nose without bleeding or purulent drainage. Limited oropharynx exam 2/2 . Trach. CARDIOVASCULAR: RRR without murmurs. No JVD. Peripheral pulses symmetric. Trace periph edema to hands. RESPIRATORY/CHEST: Tachpneic this morning. Trach.. Coarse breath sounds. Diminished sounds bases. GASTROINTESTINAL: Abdomen soft, non-tender, nondistended. No hepato-splenomegaly , or palpable masses. Bowel sounds present. TF infusing via OGT MUSCULOSKELETAL: Trace +BUE edema. +soft restraints BUE. No mottling or clubbing. NEUROLOGICAL: n vent. opening eyes, not following my commands on my visit. Able to move left forearm spontaneously.. PSYCH: no apparent distress, limited assess 2/2 clinical condition Diagnostic Tests Laboratory: Laboratory Results - last 72 hr 09/22/17 09/22/17 09/23/17 16:46 22:32 02:58 Sodium 144 Potassium 4.2 Chloride 107 Carbon Dioxide 30.5 Anion Gap 7 BUN 41 H Creatinine 0.57 L Estimated GFR Greater than 89 POC Glucose 175 H 201 H Random Glucose 171 H Calcium 7.9 L 09/23/17 09/23/17 09/23/17 03:23 08:21 12:17 Sodium Potassium Chloride Carbon Dioxide Anion Gap BUN Creatinine Estimated GFR POC Glucose 180 H 168 H 88 Random Glucose Calcium 09/23/17 09/23/17 09/24/17 16:46 23:44 02:33 Sodium 140 Potassium 4.0 Chloride 103 Carbon Dioxide 30.2 Anion Gap 7 BUN 36 H Creatinine 0.48 L Estimated GFR Greater than 89 POC Glucose 161 H 141 H Random Glucose 141 H Calcium 7.9 L 09/24/17 09/24/17 09/24/17 08:39 12:36 12:38 Sodium Potassium Chloride Carbon Dioxide Anion Gap BUN Creatinine Estimated GFR POC Glucose 242 H 89 85 Random Glucose Calcium 09/24/17 09/24/17 09/25/17 16:23 20:43 00:47 Sodium Potassium Chloride Carbon Dioxide Anion Gap BUN Creatinine Estimated GFR POC Glucose 127 H 155 H 101 Random Glucose Calcium 09/25/17 09/25/17 09/25/17 02:57 10:22 11:54 Sodium 135 L Potassium 4.3 Chloride 99 Carbon Dioxide 26.4 Anion Gap 10 BUN 32 H Creatinine 0.40 L Estimated GFR Greater than 89 POC Glucose 161 H 164 H Random Glucose 98 Calcium 7.8 L Result Diagrams: 09/22/17 02:46 09/26/17 03:15 Assessment and Plan - Disease Oriented Problem List (1) Respiratory failure Comment: revealed 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 Right middle lobe 2.7 x 2.2 x 7's. Spiculated. Left lingula is 3.4 x 3.20 cm. COPD (2) SVT (supraventricular tachycardia) (3) Lung mass Comment: revealed 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 Right middle lobe 2.7 x 2.2 x 7's. Spiculated. Left lingula is 3.4 x 3.20 cm. 1st biopsy did not show malignancy. 2nd biopsy on hold. (4) Diabetes (5) Gout (6) Spinal stenosis - Symptom Scale (1) Dyspnea 0-10 Scale: Unable to quantify (2) Pain 0-10 Scale: Unable to quantify Pertinent Non-Medical Issues: Psychosocial: Retired. He was living at home with his Tommie Gutierrez and his son "Cristina Palmer. Recently returned from 3 month trip to [place]. Speaks Mandarin only. Spiritual: unk at this time Legal: Per [place] statutes legal decision maker proxy is pt's . It appears she may have been deferring to son but has been present for major decisions. Family appears to be working together. Ethical issues impacting care: no issues identified Important Contacts: Spencer Reilly [phone] Son "Cristina Palmer [phone] Prognosis: 77 yo critically ill pt with respiratory failure, possible malignant lung nodules, underlying diastolic heart failure and DM, intubated on vent and now with chest tube. Exact cause respiratory failure and lack of improvement is copd, likely lung cancer, general deconditioning. Discussed with icu who feels pt will be vent dependent in the long term care administrator. Attempts to wean from vent have been unsuccessful. Stable for time being but no real signs improvement in respiratory status. Prognosis for recovery overall is poor. . Prior to hospitalization he was independent and ambulatory. Pt remains at significant risk for further complications and setbacks. Prognosis is poor in terms of in terms of neurlogical improvement, discussed with neurosurgery. Code Status: Alternative Code (intubation only. No cpr/acls/compression/shock) Plan: Capacity to make medical decisons: no capacity to make medical decisions. CODE STATUS - Alternate Code. Intubation only. No cpr/acls/compression/shock. LEGAL DECISION MAKER - per [place] statutes is proxy. Appears she defers a lot of her decisions to son, family all working together. GOALS -palliative has met at length with patient's family multiple times. Last family meeting on 09/24, we had reviewed: all the challenges he faces. Review that neurologically, there is a strong possibility that he well remain essentially quadriplegic. Neurosurgery had endorse that overall prognosis is poor. I reviewed with family the high probability those lung mass are cancer, and that given his current condition it is not likely he could tolerate treatment. This may the the best pt can get, and likely will have complications with various infection/ trach issues, aspiration risk, bed sores, deblity. Reemphasize overall prognosis is poor. We spoke about code status. Hospice and comfort measures/ compassionate withdraw was offered to family. Goals of care is as follows: == family expectations now seem more realistic, though still hopeful. == They would like to wait for the imaging on Friday and eval by neurosurgery. == They have change to alternate code of: No CPR/acls/shock/ compression. Continue intubation. == They would like pt's other son and grandson to come, before consideration of comfort measures. Palliative care have written a letter to assist family in visiting patient in this critical time. == Cont aggressive care for now. * SYMPTOMS * shortness of breath - 2/2 pleural effusions, underlying diastolic heart failure. Questionable malignancy, hx remote TB. On vent, weaning unsuccessful thus far. + vent asynchrony treated with sedatives. Status post tracheostomy. Pt will remain vent dependant per critical medicne. * pain - ?cause? presented with right side and thoracic pain. imaging showing lung nodules. Fentanyl available * agitation - . on exam does not appear agitated. sedation per [facility]- Palliative care will continue to follow during hospital course as condition evolves to assist patient/decision maker with understanding of medical conditions, benefits/burdens of treatment options, clarification of goals of treatment, and will assist with symptoms of palliative concern. case d/w with neurosurgery. Attestation Attestation: To help prompt me to consider important information that might be impacting today's encounter and assessment, information from prior notes written by myself or my colleagues may have been "brought forward" into today's note. My signature on this note, however, is an attestation that I personally performed the exam, history, and/or decision-making noted today, and, unless otherwise indicated, the interactions with patient, family, and staff as well as the review of records all occurred today. I also attest that the listed assessment and stated plan reflect my best clinical judgment today based on the combination of historical information, prior notes, and today's exam/ interactions. When time spent is documented, it refers only to time spent today by the signer, or if indicated, combined time spent today by collaborating physician/nurse practitioner.
[2017-09-25] MEDS ORDERED: Gadobutrol PF 7.5 MMOL/7.5 ML Vial (for RAD) IV.SIG ONE (17:27)
--- NOTE | 2017-09-25 17:56 | MR ---
EXAM DATE: 09/25/2017 5:41 PM EDT AGE/SEX: 77 years / Male INDICATIONS: Myelopathy. Recent CSP surgery. CLINICAL DATA: This is the patient's initial encounter. Patient reports that signs and symptoms have been present for 1 day and indicates a pain score of Nonresponsive. MEDICAL/SURGICAL HISTORY: Hypertension. Diabetes mellitus type II. AFIB. Prostatectomy. Disc ectomy, cervical. [place] [facility] [place]15/2017. [facility] [place] 1[place], 09/19/2017. . TECHNIQUE: Multiplanar, multisequence MRI examination of the cervical spine was performed without an d with 7 ml Gadavist (gadobutrol) contrast as a single exam dose. FINDINGS: Vertebrae: There is metallic density from surgical material in the posterior elements at the C3 the patient appears to be status post laminectomy at these levels., C4 and C5 levels. Alignment: There is minimal posterior subluxation of C6 on C7. Cord: There is a focal area of increased signal seen within the cord at the C4-C5 level extending ov er a 1.4 cm length. This was present on the prior exam. Post Fossa: The cerebellar tonsils are normal in position. Post Contrast: No abnormal areas of enhancement are seen. No focal fluid collection is seen. C2-C3: The thecal sac has a normal configuration. There is no evidence of disc herniation or spinal canal stenosis. There is bilateral facet hypertrophy being worse than the left. There is some narrow ing of the left neural foramina. The right neural foramina is patent.. C3-C4: The thecal sac has a normal configuration. There is no evidence of disc herniation or spinal canal stenosis. There is bilateral facet hypertrophy. There is left uncovertebral hypertrophy. There is narrowing of the neural foramina being worse on the left. C4-C5: The disc demonstrates decreased height. There is mild disc bulge. There appears to be a super imposed moderate central disc protrusion. This abuts the anterior aspect of the cord. Again there is increased signal within the cord at this level. There is a mild amount of CSF seen around the lateral aspect of the cord at this level. There is facet and uncovertebral hypertrophy causing some neural f oraminal narrowing at this level. C5-C6: The disc demonstrates decreased height. There is mild diffuse disc bulge and posterior osteop hytic ridging. These changes abut the anterior aspect of the cord. There continues be CSF around the lateral and posterior aspects of the cord. There is uncovertebral hypertrophy causing neural foramina l narrowing being worse on the left. C6-C7: The disc demonstrates decreased height. There is mild diffuse disc bulge. There appears to be a superimposed central to right paracentral disc protrusion. These changes abut the anterior aspect of the cord. There is CSF seen around the lateral posterior aspect of the cord. There is uncovertebra l hypertrophy. C7-T1: There is minimal bulging of the disc without significant stenosis. CONCLUSION: 1. Status post laminectomy at the C3-C5 levels. Surgical hardware seen at the posterior elements at these levels. 2. Moderate stenosis at the C4-C5 level secondary to disc bulge and central disc protrusion. There i s abnormal signal again seen within the cord. The cord appears small this region. This likely seconda ry to myelomalacia. 3. Mild to moderate narrowing of the thecal sac at the C5-C6 and C6-C7 level. 4. Neural foraminal narrowing throughout the cervical spine as described above. Electronically signed by: Ino Cee MD 09/25/2017 5:55 PM EDT
[2017-09-25] MEDS: Artificial Tears Opth Drops 15 ML Bottle EACH EYE SCH (18:00)
[2017-09-26] MEDS: Oral Hygiene Kit OROPHARYNG SCH ×4 (01:07→14:25)
[2017-09-26] MEDS: Artificial Tears Opth Drops 15 ML Bottle EACH EYE SCH ×4 (01:08→23:53)
[2017-09-26] MEDS: Insulin NovoLOG Aspart Correctional Sugar Inj SQ SCH ×6 (01:09→23:52)
[2017-09-26] MEDS: Senna/Docusate Sodium 8.6/50 MG Tablet PO SCH ×3 (01:12→23:54)
[2017-09-26] MEDS: Chlorhexidine 0.12% Oral Kit 15 ML UDC SWISH-SPIT SCH ×3 (01:12→23:54)
[2017-09-26] MEDS: Insulin Detemir Inj 1,000 UNIT/10 ML Vial SQ SCH ×2 (01:12→09:57)
[2017-09-26 04:12] LABS: Anion Gap 9 meq/L (5-15); Blood Urea Nitrogen 32 mg/dL (7-18); Calcium 7.8 mg/dL (8.5-10.1); Carbon Dioxide 30.3 meq/L (21.0-32.0); Chloride 98 meq/L (98-107); Glomerular Filtration Rate Greater Than 89 mL/min (>89); Glucose,Random 153 mg/dL (74-106); Potassium 4.2 meq/L (3.5-5.1); Sodium 137 meq/L (136-145)
[2017-09-26] MEDS: Chlorhexidine Gluconate 2% 1 Pack (2 Cloths) TOPICAL SCH ×2 (06:07→06:49)
--- NOTE | 2017-09-26 08:12 | P.PNCC ---
Subjective Subjective Remarks/Hospital Course: This is a 77-year-old Andorran male/Mandarin speaking only. Date of admission 08/21/2017. Date of consultation 08/23/2017. Past medical history is documented as hypertension, gout and diabetes mellitus. He is on no home medications. He does have remote history of tuberculosis 10 years ago. He quit tobacco use 20 years ago. He presented to [facility] on 08/21/2017 with a 3-4 days of intermittent pain in this region that acutely acutely worsened on 08/20 . They state the pain is in the right upper quadrant and radiates to the upper thorax and around his back. Hospital workup included a CT pulmonary angiogram which revealed bilateral emphysema. Multiple bilateral pulmonary nodules present with the largest in the right lung measuring 2.8 cm and the largest in the left lung measuring 2.6 cm. Severe compressive atelectasis in the right lower lobe. Moderate-sized pulmonary effusion. Pleural thickening in the anterior inferior hemothorax. Right paratracheal lymph node 15 mm. 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 No lytic bone lesions. Also noted significant coronary artery and aortic atherosclerotic calcifications. Patient was evaluated by hematology. Recommended lung biopsy when stable. She has become increasingly short of breath and was transferred from a [facility] to [facility] at 70%. Patient became less responsive and we were consulted. Patient required intubation/central line placement is currently having a right pigtail catheter placed to remove fluid from right lung. 08/24: hypotensive this AM requiring levophed at 8 mcg/min. drained 600cc of serosanguinous fluid out of chest tube. responded successfully to straight-leg challenge. intubated, sedated. remains very critically ill. 08/25: Afebrile. Off all antihypertensives and vasopressin. Currently normal saline at 100 cc an hour. On propofol and fentanyl drips. 08/26: Afebrile. No tonsillar creatinine currently at 20 cc an hour. Remains on increased propofol drip at 40 mcg/kg/min secondary to severe agitation overnight and on attempted spontaneous breathing trials. Will try dexmedetomidine attempt to wean today. 08/27: Worsening lung infiltrates associated with hydration. Afebrile. Known diastolic dysfunction. He appears to be exquisitely sensitive to fluid balance. Presently converting to Precedex and will try spontaneous breathing trials. 08/28: Continued worsening bilateral lung infiltrates. IV fluid has been stopped yesterday, will add additional diuretics. Diffusion gradient worsened, unable to wean from ventilator. 08/29: Mild improvement in lung infiltrates after diuresis without harming renal function. Remains ventilator dependent. Biopsy yesterday, results pending. 08/30: Worsening gas exchange with deteriorating diffusion capacity and requirements for increased inspired oxygen concentration. This all despite 2 L diuresis. Await pathology results. 08/31: Lung infiltrates resolving with diuresis. Continues to behave like diastolic heart failure. Contraction alkalosis is developing will add a carbonic anhydrase inhibitor for a couple of days. T-max 100.8 but for the most part he has been afebrile. Lung mass does appear to be a malignancy. Agree with attempt to rebiopsy at some point. We will continue to diuresis until his kidneys squeak. At 7-10 days of antibiotics it may be best to stop treatment and reculture for fevers. I will defer to the pulmonary service. 09/01: remains intubated and sedated. continues to fail any weaning attempts. consulted palliative to assist in goals of care: may need tracheostomy for further aggressive care. 09/02: palliative meeting with family again today. no improvements. it has been greater than 10 days of full empiric antibiotics: will discontinue and re- culture for fever. 09/03: chest tube on water seal with minimal output. cxr unchanged. CT removed today on my eval. no other changes or improvements. unlikely to have favorable outcome. quite hypercarbic despite full vent support: will make changes to ventilation to assist with hypercarbic. 09/04: Remains sedated, orally intubated on mechanical ventilation. 09/05: Remains sedated, orally intubated on mechanical ventilation. Failed CPAP trials yesterday. 09/06: Sedated, arousable, orally intubated on mechanical ventilation. Failed CPAP trials yesterday. Family wishes to continue aggressive care and desire trach and PEG. 09/07: T-max 100.3. One bowel movement yesterday. Failed CPAP trials yesterday. OG tube plugged overnight and able to place new feeding tube at the present time. We will switch all medications to IV at the present time including amiodarone drip at 0.5 mg/min. Check digoxin level prior to resuming IV. 09/08: T-max 99.2. Currently afebrile. One bowel movement overnight. Plan for percutaneous tracheostomy today. GI consult for PEG placement. CT chest revealed small bilateral pleural effusions. Persistent right middle lobe mass which we will consult IR again for rebiopsy. Will ask pulmonary to see again 09/09: Remains on full vent support more critical today increasing oxygen requirement FiO2 at 65 of have increase PEEP to 10 to attempt wean oxygen. Air entry markedly diminished bilaterally. Chest x-ray shows bilateral prominent interstitial infiltrates. Fluid up by approximately 10 kg. I will discontinue half-normal saline. Lasix 40 mg IV 1 09/10: Patient remains critical showing agonal breathing on the ventilator. Bilateral coarse breath sounds. Chest x-ray shows bilateral patchy infiltrates improved left effusion after thoracentesis and removal of 1 L of fluid. However FiO2 requirement remains high at 65%. UO 1.5L in 24 hours. Lab work pending. IV steroids started for probable COPD exacerbation given history of smoking 09/11: Remains critical but slightly more stable. Breathing pattern has improved and oxygenation has improved after starting IV steroids for COPD exacerbation and thoracentesis on 09/09/2017. Currently FiO2 down to 50%, PEEP at 10. We will further wean. Sodium increased to 151 start quarter normal saline, increase Lasix. Family wished to proceed with full code. PEG today 09/12: Remains intubated sedated with propofol. Urine output 1.8 L. BUN/ creatinine slightly increased today 72/1.34. Will reduce Lasix dose also reduce Solu-Medrol. Vent dyssynchrony has improved but FiO2 remains high at 55% 09/13: Off all sedation for 24 hours. Apparently patient notes has had one family is at bedside asking questions. BUN/creatinine slightly improved 71/ 1.14 from 72/1.34. WBC count slightly improved to 20.7. FiO2 at 45% chest x- ray shows some interval improvement. Also Na improved to 147 09/14: Remains intubated off sedation. Slightly tachypneic on pressure support . Urine output approximately 1500 mL in 24 hours 09/15: Patient clearly more awake today seems to understand some of the commands. Concern about quadriparesis patient is not able to withdrawal to pain 4, even though it appears he does feel the pain. MRI of the C-spine ordered. Neurology consulted. Otherwise BUN/creatinine slightly improved 09/16: Patient remains quadriparetic, slight movement of the left upper extremity. MRI of the C-spine shows focal severe spinal canal stenosis at C4-5 , with increased signal within the body of the spinal cord at this level most likely representing some myelomalacia. Moderate diffuse broad-based bulging at C3-4 with some mild increased signal in the spinal cord at this level. Moderate spinal canal stenosis at C6-C7. Also there is evidence of tracheostomy site infection. Explained MRI findings to son and patient's using electronic pipe organ installer. Discussed with Dr. Carvalho. Increase Solu-Medrol to 250 mg IV every 6 hours. Consult neurosurgery 09/17: Remains septic, remains quadriplegic. Slight movements of the left upper extremity noted. C. difficile positive p.o. vancomycin added by ID yesterday. Appreciate input from Dr. Victor. Patient hs severe upper cervical stenosis with myelopathy and resultant SCI/severe quadriplegia of the upper and lower extremities. Prognosis very poor per neurosurgery 09/18: Afebrile. Tube feeds are at goal. No change in neurological status. Left upper extremity movement only. 09/19: Resting comfortably in bed in no acute distress. Noted able to squeeze left hand in slightly squeeze right hand. Will move bilateral lower extremities slightly to command. Positive BM. 09/20: Status post C2 hemilaminectomy, C3 through [address] Victor yesterday. Tolerated procedure well. Restarting tube feeding today. Verbalizing words and does move left upper extremity spontaneously. SUBJECTIVE: 09/21: Afebrile. Neurological unchanged overnight. No bowel movement since 09/18. Tolerating tube feeds at goal. Discussed with care plan via diplomatic interpreter yesterday and she expressed understanding. 09/22: Stable hemodynamics and acceptable gas exchange. Remains weak.Unable to wean from ventilator. 09/23: Remains effectively quadriplegic. Unable to wean from ventilator due to inadequate respiratory stamina. 09/24: Minimal movement nor response to voice or stimulation. No improvement from debilitated state over past several weeks. 09/25: Opens eyes but not to command. Tolerate CPAP trials for several hours now. 09/26: Opens eyes spontaneously. Does not tolerate CPAP and spontaneous breathing trials for long periods. Will need a long-term vent unit. Objective Vital Signs / I&O: Vital Signs 09/25/17 10:00 09/25/17 11:23 09/25/17 12:00 Temperature 98.8 F Pulse Rate 104 H 71 Respiratory Rate 21 Blood Pressure 148/78 H Pulse Oximetry 98 09/25/17 14:00 09/25/17 16:00 09/25/17 17:50 Temperature 99.1 F Pulse Rate 86 86 Respiratory Rate Blood Pressure 147/83 H Pulse Oximetry 99 09/25/17 18:00 09/25/17 20:00 09/25/17 20:02 Temperature 98.1 F Pulse Rate 86 98 H 93 H Respiratory Rate 24 22 Blood Pressure 161/84 H Pulse Oximetry 09/25/17 22:00 09/26/17 00:00 09/26/17 02:00 Temperature 98.1 F Pulse Rate 70 84 86 Respiratory Rate 23 Blood Pressure 164/92 H Pulse Oximetry 09/26/17 04:00 09/26/17 04:24 09/26/17 06:00 Temperature 98.0 F Pulse Rate 76 79 Respiratory Rate 21 21 Blood Pressure 137/77 Pulse Oximetry 09/26/17 06:46 Temperature Pulse Rate Respiratory Rate 23 Blood Pressure Pulse Oximetry Intake & Output 09/25/17 09/26/17 09/26/17 18:59 06:59 18:59 Intake Total 1330 / 1330 2036 / 2036 Output Total 1225 / 1225 1005 / 1005 Balance 105 / 105 1031 / 1031 Weight 69.4 kg Intake: IV 200 / 200 Unasyn Inj 3 GM In NS Inj 100 200 / 200 ML @ 200 mls/hr IV.SIG Q6H [facility] Rx#:[id number] Oral 0 / 0 Tube Feeding 530 / 530 676 / 676 Tube Irrigant 120 / 120 Water Bolus Amount 600 / 600 600 / 600 Anesthesia Amount 0 / 0 Other 640 / 640 Output: Urine 600 / 600 Stool 100 / 100 Estimated Blood Loss 300 / 300 Urine Amount (Catheter) 1225 / 1225 Indwelling Urethral Catheter 1225 / 1225 Wound Drainage 5 / 5 # 1 Posterior Neck [place] Drain 5 / 5 Other: Other Intake Source Saline Solution Date of Last Bowel Movement 09/25/17 09/25/17 # Bowel Movements 1 1 # Incontinent Bowel Movements 1 1 Result Diagrams: 09/22/17 02:46 09/26/17 03:15 Objective Remarks: GENERAL: 77-year-old male currently ventilated via trach, responds weakly to stimulation but not able to move right upper extremity. Slight movement left upper extremity. SKIN: Warm and dry. No rash HEAD: Atraumatic. Normocephalic. Eyes moderately sunken. EYES: Pupils equal and round about 2 mm bilaterally reactive. No conjunctival icterus. No injection or drainage. ENT: No nasal bleeding or discharge. Mucous membranes dry. NECK: Trachea midline. Trach site with minimal drainage. CARDIOVASCULAR: S1, S2 no S4. Without murmur. No JVD LUNGS: Coarse rhonchi appreciated bilaterally. Expiratory wheeze. Acceptable bilateral air movement. GASTROINTESTINAL: Abdomen soft, non-tender, nondistended. No guarding. Bowel sounds are present. MUSCULOSKELETAL: Extremities without significant peripheral edema. Well perfused. NEUROLOGICAL: Off all sedation. Minimal response or eye opening today. Able to extend left wrist/hand weakly. Slight movement to stimulation on right lower extremity. Assessment and Plan - Assessment and Plan Plan: A/P Assessment and Plan Neuro/Psych: Postoperative C2 hemilaminectomy, C3 through 5 lamina plasty secondary to cervical stenosis, spinal stenosis by Dr. Victor Acute toxic metabolic encephalopathy Quadriplegia Severe cervical spinal cord stenosis, with acute spinal cord injury MRI C-spine 09/15: There appears to be focal severe spinal canal stenosis at C4- 5. There is increased signal within the body of the spinal cord at this level most likely representing some myelomalacia. Moderate diffuse broad-based bulging at C3-4 with some mild increased signal in the spinal cord at this level. Moderate spinal canal stenosis at C6-C7 Bilateral facet arthritis at multiple levels. Extensive primary degenerative changes with disc degeneration and disc space narrowing throughout the entire cervical spine. Severe quadriplegia of the upper and lower extremities with some preserved residual sensory function. Neurosurgery Dr. Victor. Poor chance of neurological recovery for him Neurology Dr. Carvalho, discussed with neurosurgery today. Per his recommendations decrease to methylprednisolone succinate to 40 mg IV every 8 hours starting 09/20 with goal to rapidly taper off. Will decrease to 40 mg twice daily today 09/21. Previously on 250 mg every 6 hours started 09/[address] 08/23: 2 questionable tiny focal hemorrhages. MRI of brain 08/26 chronic small vessel ischemic and atrophic changes CT brain 09/05 revealed bilateral maxillary sinusitis. No other acute finding EEG 09/03 revealed severe encephalopathy. No epileptiform activity Acetaminophen 650 mg by tube every 6 hours as needed fever Oxycodone 5 mg every 4 hours scheduled Morphine sulfate 2 mg IV every 4 hours as needed pain 6 -10. PT/OT CV: Uncontrolled hypertension septic shock- resolved Atherosclerotic coronary artery disease Atrial fibrillation Elevated troponin downward trend Fluid overload We will give 2 doses of acetazolamide 250 mg IV 1 today. Discontinue furosemide Amiodarone Discontinued 09/07 secondary to bradycardia and pauses Continue metoprolol 25 mg p.o. q8h but increase to 50 mg twice daily Continue digoxin 0.125 mg daily.. 0.5 recheck level in a.m. 09/22. Will give 0.25 mg 1 at 1800 today (Home medication is NITRENDIPINE 10 mg by mouth daily) Currently off all vasopressors, mildly hypertensive Resp: Acute hypoxic hypercapnic respiratory failure COPD with exacerbation/Emphysema Trach site infection Bilateral pleural effusion/status post chest tube right-sided transudative in nature. Chest tube removed 09/04 Multiple bilateral pulmonary masses vs infiltrate, RML mass vs consolidation Pulmonary edema PRVC 16//1.03/24/49 Ventilator bundle Continue IV methylprednisolone succinate at increased dose as above for acute spinal cord injury, continue inhaled budesonide 0.5/2 1 inhalation twice daily Albuterol/ipratropium aerosols every 4 hours with albuterol aerosols every 2 hours as needed dyspnea CT pulmonary angiogram revealed 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 Right middle lobe 2.7 x 2.2 x 7's. Spiculated. Left lingula is 3.4 x 3.20 cm. Underlying pronounced emphysematous type changes throughout lung larios. Right pleural effusion. CT thorax 09/08 revealed multiple areas of consolidation bilaterally. Prior granulomatous disease. Focal consolidation or mass in the right middle lobe that appears unchanged. Lung mass biopsied on August 28 -results - CHRONIC INFLAMMATORY AND REACTIVE FIBROBLASTIC TISSUE CONTAINING ENTRAPPED BENIGN EPITHELIUM reconsult IR 09/08 for repeat biopsy Followed by Dr. Hardy/pulmonology. Reconsulted 09/08, recommended repeat CT in 4 weeks. Hold off the IR guided biopsy time due to unstable respiratory status, neuro status s/p percutaneous tracheostomy 09/08 (Biga/Michael). Piperacillin/tazobactam and vancomycin for trach site infection. May remove trach sutures Status post thoracentesis left side 09/09 with 1 L fluid removed. No evidence of infection GI: Hypoalbuminemia C. difficile colitis s/p PEG 09/11. Tolerating tube feeds with Glucerna 1.5 at 55 cc an hour, free water flushes 300 cc every 6 hours Lansoprazole for GI prophylaxis Lactulose 30 cc twice daily for bowel regimen/hyperammonemia P.o. vancomycin 250 every 6 hours for C. difficile intestinal infection : Urinary retention, possible urinary stricture Acute kidney injury Maintain Larson catheter. Monitor urine output, Accurate I's and O's significant difficulty due to obstruction which may be urethral stricture which prevented serial i/o. replaced Larson catheter. Avoid nephrotoxic drugs Endo: Diabetes mellitus Hyperglycemia History of gout Sliding scale insulin with NovoLog high regimen to maintain euglycemia Currently on insulin detemir 10 units subcu twice daily Holding home medications of allopurinol 300 mg daily and colchicine 0.6 mg as needed Holding home medications of metformin 500 mg twice daily Heme: Leukocytosis Normocytic anemia Monitor CBC daily. Follow trends Coags within normal limits ID: Severe sepsis Trach site infection Healthcare associated pneumonia C. difficile colitis Appreciate ID input. Discontinue IV vancomycin, IV piperacillin/tazobactam switch to ampicillin/sulbactam by ID on 09/19. Continue fluconazole 200 mg daily and p.o. vancomycin 250 milligrams by tube 4 times daily Status post bronchoscopy 09/03 cultures negative Blood culture from 08/20/ 08/26 no growth to date Sputum 09/05 no growth Influenza a and B negative 09/07 Bronchial wash negative FEN: Hypernatremia Quarter normal saline with 20 mEq KCl 1 today. Replace electrolytes as clinically indicated per ICU electrolyte protocol. Received 20 milliequivalents potassium chloride today Monitor CMP On free water 300 every 6, improved. MSK: Elevated BMI PT evaluate and treat Weight loss encouraged Access Peripheral IV. Discontinue arterial line placed 09/19 in OR on 09/20. Prophylaxis -GI -lansoprazole.. DVT -SCD/heparin subcutaneous 5000 units 3 times a day. No signs of bleeding on MRI brain Overall impression: This gentleman remains weak and debilitated, functionally quadriparetic. We are unable to wean him from a ventilator and his general condition and strength is not improving. Long-term prognosis for a meaningful recovery is quite poor. The best we can probably hope for is a skilled facility and chronic ventilator dependency. Family has made him DNR status.
[2017-09-26] MEDS: MethylPREDNISolone Sod Succinate Inj 40 MG/ML Vial IV.PUSH SCH ×2 (09:51→21:01)
[2017-09-26] MEDS: Metoprolol Tartrate 50 MG Tablet PO SCH ×2 (09:52→21:02)
[2017-09-26] MEDS: Ampicillin/Sulbactam Inj 3 GM in Sodium Chloride 0.9% Inj 100 ML IV.SIG SCH ×3 (09:53→21:03)
[2017-09-26] MEDS: Beneprotein Powder Packet G-TUBE SCH ×3 (09:55→18:53)
--- NOTE | 2017-09-26 12:54 | P.DIET ---
Nutritional Evaluation Type of nutrition evaluation: follow-up Nutrition consult regarding: Tube Feeding (09/11 [facility] [place] for TFing) Nutrition screening: Pressure Injury (Pressure Ulcer Screen received 09/07. ) Subjective Subjective Comments: Pt speaks only Mandarin. Objective - Diagnosis Pulmonary Mass, Pulmonary Infiltrates - Objective % IBW: 132 (IBW = 118#) Body Weight Used for Calculations: Upper end of IBW (59 kg) Energy Needs - Lower Range (kCal/kg): 30 Energy Needs - Upper Range (kCal/kg): 35 Lower Limit kCal/kg (kCals): 1,770 Upper Limit kCal/kg (kCals): 2,065 Lower Limit Protein Factor (Grams per Kg): 1.2 Upper Limit Protein Factor (Grams per Kg): 1.5 Lower Protein Needs (Protein): 71 Upper Protein Needs (Protein): 89 Dietitian Reviewed in Medical Record: Curent medications, Intake & Output, Labs , Medical history, Tube feeding, Wound/DTI Diet Order: TFing only Objective Comments: Hx includes HTN, DM, Gout, TB (10 years ago) 09/11 PEG placed Feeding - Current Tube Feeding Tube Feeding Product: Glucerna 1.5 Tube Feeding Method: Pump Tube Feeding Rate: 55 (mls/hr) Current kCals Provided by Tube Feedin,980 Current Protein Provided by Tube Feeding (gPRO): 109 Current Free H2O Provided (m/l): 1,002 Assessment Assessment: Pt remains at high nutrition risk needing TFing to meet needs. He has been tolerating TF of Glucerna 1.5 @ 55 mls/hr and this adequately meets estimated needs. Nurse's Wound/Pressure Injury Assessment indicates ongoing upper lip pressure injury. CBW = 69.4 kg. LBM 09/25 Recommendations: Continue Glucerna 1.5 @ 55 mls/hr goal Dietitian to Monitor: Lab values, Intake & Output, Tube feeding tolerance, Weight change, Wound/skin status, Medical course
--- NOTE | 2017-09-26 14:56 | P.PNPAL ---
Reason for Visit Reason for visit: a. To assist with evaluation and management of symptoms including: dyspnea, pain, agitation b. To assist medical decision maker(s) with: better understanding of current medical conditions; weighing benefits/burdens of medical treatment options; making medical treatment decisions. Subjective Subjective/Interval History: Patient s/p C2-C3 to 5 laminoplasty for severe cervical spinal cord stenosis, last week Friday. Cervical spine MRI show s/p c3-c5 laminoctomy, moderate stenosis of c4-c5, there is abnormal signal againseen within the cord. The cord appears small in this region. He has spontaneous movement of left and appears to try to move it. Not other movement elsewhere. Patient open eyes briefly then goes back to sleep. Not following commands on my visit. He does not appear too painful. Nurse noted some agitation today. Family/Friend Interactions: Pt's by bedside. No questions. Tells me tomorrow, pt's son from [place] will arrive. She does not know when pt's grandson will arrive. I have tried calling son today, he has no voicemail for which I can reach him. Objective Vital Signs: Vital Signs 09/25/17 16:00 09/25/17 17:50 09/25/17 18:00 Temperature 99.1 F Pulse Rate 86 86 Respiratory Rate Blood Pressure 147/83 H Pulse Oximetry 99 09/25/17 20:00 09/25/17 20:02 09/25/17 22:00 Temperature 98.1 F Pulse Rate 98 H 93 H 70 Respiratory Rate 24 22 Blood Pressure 161/84 H Pulse Oximetry 09/26/17 00:00 09/26/17 02:00 09/26/17 04:00 Temperature 98.1 F 98.0 F Pulse Rate 84 86 76 Respiratory Rate 23 21 Blood Pressure 164/92 H 137/77 Pulse Oximetry 09/26/17 04:24 09/26/17 06:00 09/26/17 06:46 Temperature Pulse Rate 79 Respiratory Rate 21 23 Blood Pressure Pulse Oximetry 09/26/17 10:45 Temperature Pulse Rate 61 Respiratory Rate 18 Blood Pressure Pulse Oximetry Intake & Output 09/25/17 09/26/17 09/26/17 18:59 06:59 18:59 Intake Total 1330 / 1330 2136 / 2136 50 / 50 Output Total 1225 / 1225 1005 / 1005 Balance 105 / 105 1131 / 1131 50 / 50 Weight 69.4 kg Intake: IV 200 / 200 100 / 100 Unasyn Inj 3 GM In NS Inj 100 200 / 200 100 / 100 ML @ 200 mls/hr IV.SIG Q6H MICHELET Rx#:[id number] Oral 0 / 0 Tube Feeding 530 / 530 676 / 676 Tube Irrigant 120 / 120 Water Bolus Amount 600 / 600 600 / 600 Anesthesia Amount 0 / 0 Other 640 / 640 50 / 50 Output: Urine 600 / 600 Stool 100 / 100 Estimated Blood Loss 300 / 300 Urine Amount (Catheter) 1225 / 1225 Indwelling Urethral Catheter 1225 / 1225 Wound Drainage 5 / # 1 Posterior Neck [place] Drain Other: Other Intake Source Saline Solution Date of Last Bowel Movement 09/25/17 09/25/17 # Bowel Movements 1 1 # Incontinent Bowel Movements 1 1 Physical Exam: CONSTITUTIONAL/GENERAL: This is an adequately nourished patient , on [facility] vent TUBES/LINES/DRAINS: ETT, ceja, PIV x2 BUE, OGT SKIN: No jaundice, rashes, or lesions. No wounds seen anteriorly. skin warm/ dry EYES: no eye opening. No injection or drainage. Fundi not examined. ENT: Nose without bleeding or purulent drainage. Limited oropharynx exam 2/2 + ET tube. CARDIOVASCULAR: RRR without murmurs. No JVD. Peripheral pulses symmetric. Trace periph edema to hands. RESPIRATORY/CHEST: unlabored respirations via ETT to vent. Coarse breath sounds. Diminished sounds bases. GASTROINTESTINAL: Abdomen soft, non-tender, nondistended. No hepato-splenomegaly , or palpable masses. Bowel sounds present. TF infusing via OGT MUSCULOSKELETAL: Trace +BUE edema. +soft restraints BUE. No mottling or clubbing. NEUROLOGICAL: n vent. no eye opening to stimuli. spontaneous movement of left upper ext. none elsewhere. PSYCH: no apparent distress, limited assess 2/2 clinical condition Diagnostic Tests Laboratory: Laboratory Results - last 72 hr 09/23/17 09/23/17 09/24/17 16:46 23:44 02:33 Sodium 140 Potassium 4.0 Chloride 103 Carbon Dioxide 30.2 Anion Gap 7 BUN 36 H Creatinine 0.48 L Estimated GFR Greater than 89 POC Glucose 161 H 141 H Random Glucose 141 H Calcium 7.9 L 09/24/17 09/24/17 09/24/17 08:39 12:36 12:38 Sodium Potassium Chloride Carbon Dioxide Anion Gap BUN Creatinine Estimated GFR POC Glucose 242 H 89 85 Random Glucose Calcium 09/24/17 09/24/17 09/25/17 16:23 20:43 00:47 Sodium Potassium Chloride Carbon Dioxide Anion Gap BUN Creatinine Estimated GFR POC Glucose 127 H 155 H 101 Random Glucose Calcium 09/25/17 09/25/17 09/25/17 02:57 10:22 11:54 Sodium 135 L Potassium 4.3 Chloride 99 Carbon Dioxide 26.4 Anion Gap 10 BUN 32 H Creatinine 0.40 L Estimated GFR Greater than 89 POC Glucose 161 H 164 H Random Glucose 98 Calcium 7.8 L 09/25/17 09/26/17 09/26/17 16:27 03:15 08:44 Sodium 137 Potassium 4.2 Chloride 98 Carbon Dioxide 30.3 Anion Gap 9 BUN 32 H Creatinine 0.46 L Estimated GFR Greater than 89 POC Glucose 163 H 150 H Random Glucose 153 H Calcium 7.8 L 09/26/17 09/26/17 09/26/17 12:37 12:39 13:12 Sodium Potassium Chloride Carbon Dioxide Anion Gap BUN Creatinine Estimated GFR POC Glucose 61 L 58 L 169 H Random Glucose Calcium Result Diagrams: 09/22/17 02:46 09/26/17 03:15 Imaging: Impressions Cervical Spine MRI 09/25/17 00:00 CONCLUSION: 1. Status post laminectomy at the C3-C5 levels. Surgical hardware seen at the posterior elements at these levels. 2. Moderate stenosis at the C4-C5 level secondary to disc bulge and central disc protrusion. There is abnormal signal again seen within the cord. The cord appears small this region. This likely secondary to myelomalacia. 3. Mild to moderate narrowing of the thecal sac at the C5-C6 and C6-C7 level. 4. Neural foraminal narrowing throughout the cervical spine as described above. 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 Right middle lobe 2.7 x 2.2 x 7's. Spiculated. Left lingula is 3.4 x 3.20 cm. COPD (2) SVT (supraventricular tachycardia) (3) Lung mass Comment: revealed 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 Right middle lobe 2.7 x 2.2 x 7's. Spiculated. Left lingula is 3.4 x 3.20 cm. 1st biopsy did not show malignancy. 2nd biopsy on hold. (4) Diabetes (5) Gout (6) Spinal stenosis Pertinent Non-Medical Issues: Psychosocial: Retired. He was living at home with his Tommie Gutierrez and his son "Cristina Palmer. Recently returned from 3 month trip to [place]. Speaks Mandarin only. Spiritual: unk at this time Legal: Per [place] statutes legal decision maker proxy is pt's . It appears she may have been deferring to son but has been present for major decisions. Family appears to be working together. Ethical issues impacting care: no issues identified Important Contacts: Spencer Reilly [phone] Son "Cristina Palmer [phone] Prognosis: 77 yo critically ill pt with respiratory failure, likely malignant lung nodules , underlying diastolic heart failure and DM. Attempts to wean from vent have been unsuccessful. Stable for time being but no real signs improvement in respiratory status. Critical Care feels pt will remain vent dependant for the rest of his life. Prognosis for recovery to previous status is poor given likely malignancy in the lungs, poor neurological progress in which pt is essentially functionally quadraplegic, risk for infections bedsores, various complications. Code Status: Alternative Code Plan: CODE STATUS - Alternate- no shock, no compression, no acls drugs. Just intubation. Capacity- he does not appears to be able to weigh the risk and benefits of decision on my visit. There is confusion and agitation. LEGAL DECISION MAKER - per [place] statutes is proxy , who defers decisions to son, Humble, family all working together. GOALS -palliative has met at length with patient's family multiple times. Last extensive family meeting was 09/24/2017. We had reviewed: all the challenges pt faces. Review that neurologically, there is a strong possibility that he well remain essentially quadriplegic. Neurosurgery had endorse that overall prognosis is poor. I reviewed with family the high probability those lung mass are cancer, and that given his current condition it is not likely he could tolerate treatment. This may the the best pt can get, and likely will have complications with various infection/ trach issues, aspiration risk, bed sores, deblity. Reemphasize overall prognosis is poor. I tried calling son Humble today 7/13 and could not leave voicemail == family expectations seem more realistic, though still hopeful, since last extensive family meeting. == They would like to wait for reimmaging and eval by neurosurgery. I have spoken to neurosurgery ORTHOPEDICS PEDIATRIC PHYSICIAN, will await neurosurgeon comment later on today. It does not look optimistic as there is still abnormal signal seen still at c4- c5. == Code is No CPR/acls/shock/ compression. Continue intubation. == Pt's other son is arriving tomorrow and grandson travel plans is pending approval. I have written a letter to assist in grandson to come to see patient. Family would like grandson to come, if possible, before consideration of comfort measures. == Cont aggressive care for now. SYMPTOMS * shortness of breath - 2/2 pleural effusions, underlying diastolic heart failure. Questionable malignancy, hx remote TB. On vent, weaning unsuccessful thus far. + vent asynchrony treated with sedatives. Status post tracheostomy. Some tachypnea, agonal irregular respirations on vent at times. * pain - ?cause? presented with right side and thoracic pain. imaging showing lung nodules. BX benign, ?repeat. 0/10 pain per nursing scores. appears comfortable, no signs of pain on exam. Appears comfortable. * agitation - . there is some reported agitation. sedation per CCM- Palliative care will continue to follow during hospital course as condition evolves to assist patient/decision maker with understanding of medical conditions, benefits/burdens of treatment options, clarification of goals of treatment, and will assist with symptoms of palliative concern.
[2017-09-27] MEDS: Insulin NovoLOG Aspart Correctional Sugar Inj SQ SCH ×6 (00:02→21:04)
[2017-09-27] MEDS: Insulin Detemir Inj 1,000 UNIT/10 ML Vial SQ SCH ×3 (00:12→20:39)
[2017-09-27] MEDS: Ampicillin/Sulbactam Inj 3 GM in Sodium Chloride 0.9% Inj 100 ML IV.SIG SCH (00:12)
[2017-09-27] MEDS: Oral Hygiene Kit OROPHARYNG SCH ×4 (00:12→16:00)
[2017-09-27 05:40] LABS: Anion Gap 8 meq/L (5-15); Blood Urea Nitrogen 31 mg/dL (7-18); Calcium 8.2 mg/dL (8.5-10.1); Carbon Dioxide 31.3 meq/L (21.0-32.0); Chloride 99 meq/L (98-107); Glomerular Filtration Rate Greater Than 89 mL/min (>89); Glucose,Random 153 mg/dL (74-106); Potassium 4.2 meq/L (3.5-5.1); Sodium 138 meq/L (136-145)
[2017-09-27] MEDS: Chlorhexidine Gluconate 2% 1 Pack (2 Cloths) TOPICAL PRN (06:53)
[2017-09-27] MEDS: Chlorhexidine Gluconate 2% 1 Pack (2 Cloths) TOPICAL SCH (06:53)
--- NOTE | 2017-09-27 08:09 | P.PNCC ---
Subjective Subjective Remarks/Hospital Course: This is a 77-year-old Pakistani male/Mandarin speaking only. Date of admission 08/21/2017. Date of consultation 08/23/2017. Past medical history is documented as hypertension, gout and diabetes mellitus. He is on no home medications. He does have remote history of tuberculosis 10 years ago. He quit tobacco use 20 years ago. He presented to [facility] on 08/21/2017 with a 3-4 days of intermittent pain in this region that acutely acutely worsened on 08/20 . They state the pain is in the right upper quadrant and radiates to the upper thorax and around his back. Hospital workup included a CT pulmonary angiogram which revealed bilateral emphysema. Multiple bilateral pulmonary nodules present with the largest in the right lung measuring 2.8 cm and the largest in the left lung measuring 2.6 cm. Severe compressive atelectasis in the right lower lobe. Moderate-sized pulmonary effusion. Pleural thickening in the anterior inferior hemothorax. Right paratracheal lymph node 15 mm. 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 No lytic bone lesions. Also noted significant coronary artery and aortic atherosclerotic calcifications. Patient was evaluated by hematology. Recommended lung biopsy when stable. She has become increasingly short of breath and was transferred from a hospital [facility] to [facility] at 70%. Patient became less responsive and we were consulted. Patient required intubation/central line placement is currently having a right pigtail catheter placed to remove fluid from right lung. 08/24: hypotensive this AM requiring levophed at 8 mcg/min. drained 600cc of serosanguinous fluid out of chest tube. responded successfully to straight-leg challenge. intubated, sedated. remains very critically ill. 08/25: Afebrile. Off all antihypertensives and vasopressin. Currently normal saline at 100 cc an hour. On propofol and fentanyl drips. 08/26: Afebrile. No tonsillar creatinine currently at 20 cc an hour. Remains on increased propofol drip at 40 mcg/kg/min secondary to severe agitation overnight and on attempted spontaneous breathing trials. Will try dexmedetomidine attempt to wean today. 08/27: Worsening lung infiltrates associated with hydration. Afebrile. Known diastolic dysfunction. He appears to be exquisitely sensitive to fluid balance. Presently converting to Precedex and will try spontaneous breathing trials. 08/28: Continued worsening bilateral lung infiltrates. IV fluid has been stopped yesterday, will add additional diuretics. Diffusion gradient worsened, unable to wean from ventilator. 08/29: Mild improvement in lung infiltrates after diuresis without harming renal function. Remains ventilator dependent. Biopsy yesterday, results pending. 08/30: Worsening gas exchange with deteriorating diffusion capacity and requirements for increased inspired oxygen concentration. This all despite 2 L diuresis. Await pathology results. 08/31: Lung infiltrates resolving with diuresis. Continues to behave like diastolic heart failure. Contraction alkalosis is developing will add a carbonic anhydrase inhibitor for a couple of days. T-max 100.8 but for the most part he has been afebrile. Lung mass does appear to be a malignancy. Agree with attempt to rebiopsy at some point. We will continue to diuresis until his kidneys squeak. At 7-10 days of antibiotics it may be best to stop treatment and reculture for fevers. I will defer to the pulmonary service. 09/01: remains intubated and sedated. continues to fail any weaning attempts. consulted palliative to assist in goals of care: may need tracheostomy for further aggressive care. 09/02: palliative meeting with family again today. no improvements. it has been greater than 10 days of full empiric antibiotics: will discontinue and re- culture for fever. 09/03: chest tube on water seal with minimal output. cxr unchanged. CT removed today on my eval. no other changes or improvements. unlikely to have favorable outcome. quite hypercarbic despite full vent support: will make changes to ventilation to assist with hypercarbic. 09/04: Remains sedated, orally intubated on mechanical ventilation. 09/05: Remains sedated, orally intubated on mechanical ventilation. Failed CPAP trials yesterday. 09/06: Sedated, arousable, orally intubated on mechanical ventilation. Failed CPAP trials yesterday. Family wishes to continue aggressive care and desire trach and PEG. 09/07: T-max 100.3. One bowel movement yesterday. Failed CPAP trials yesterday. OG tube plugged overnight and able to place new feeding tube at the present time. We will switch all medications to IV at the present time including amiodarone drip at 0.5 mg/min. Check digoxin level prior to resuming IV. 09/08: T-max 99.2. Currently afebrile. One bowel movement overnight. Plan for percutaneous tracheostomy today. GI consult for PEG placement. CT chest revealed small bilateral pleural effusions. Persistent right middle lobe mass which we will consult IR again for rebiopsy. Will ask pulmonary to see again 09/09: Remains on full vent support more critical today increasing oxygen requirement FiO2 at 65 of have increase PEEP to 10 to attempt wean oxygen. Air entry markedly diminished bilaterally. Chest x-ray shows bilateral prominent interstitial infiltrates. Fluid up by approximately 10 kg. I will discontinue half-normal saline. Lasix 40 mg IV 1 09/10: Patient remains critical showing agonal breathing on the ventilator. Bilateral coarse breath sounds. Chest x-ray shows bilateral patchy infiltrates improved left effusion after thoracentesis and removal of 1 L of fluid. However FiO2 requirement remains high at 65%. UO 1.5L in 24 hours. Lab work pending. IV steroids started for probable COPD exacerbation given history of smoking 09/11: Remains critical but slightly more stable. Breathing pattern has improved and oxygenation has improved after starting IV steroids for COPD exacerbation and thoracentesis on 09/09/2017. Currently FiO2 down to 50%, PEEP at 10. We will further wean. Sodium increased to 151 start quarter normal saline, increase Lasix. Family wished to proceed with full code. PEG today 09/12: Remains intubated sedated with propofol. Urine output 1.8 L. BUN/ creatinine slightly increased today 72/1.34. Will reduce Lasix dose also reduce Solu-Medrol. Vent dyssynchrony has improved but FiO2 remains high at 55% 09/13: Off all sedation for 24 hours. Apparently patient notes has had one family is at bedside asking questions. BUN/creatinine slightly improved 71/ 1.14 from 72/1.34. WBC count slightly improved to 20.7. FiO2 at 45% chest x- ray shows some interval improvement. Also Na improved to 147 09/14: Remains intubated off sedation. Slightly tachypneic on pressure support . Urine output approximately 1500 mL in 24 hours 09/15: Patient clearly more awake today seems to understand some of the commands. Concern about quadriparesis patient is not able to withdrawal to pain 4, even though it appears he does feel the pain. MRI of the C-spine ordered. Neurology consulted. Otherwise BUN/creatinine slightly improved 09/16: Patient remains quadriparetic, slight movement of the left upper extremity. MRI of the C-spine shows focal severe spinal canal stenosis at C4-5 , with increased signal within the body of the spinal cord at this level most likely representing some myelomalacia. Moderate diffuse broad-based bulging at C3-4 with some mild increased signal in the spinal cord at this level. Moderate spinal canal stenosis at C6-C7. Also there is evidence of tracheostomy site infection. Explained MRI findings to son and patient's using electronic punch press operator helper. Discussed with Dr. Carvalho. Increase Solu-Medrol to 250 mg IV every 6 hours. Consult neurosurgery 09/17: Remains septic, remains quadriplegic. Slight movements of the left upper extremity noted. C. difficile positive p.o. vancomycin added by ID yesterday. Appreciate input from Dr. Victor. Patient hs severe upper cervical stenosis with myelopathy and resultant SCI/severe quadriplegia of the upper and lower extremities. Prognosis very poor per neurosurgery 09/18: Afebrile. Tube feeds are at goal. No change in neurological status. Left upper extremity movement only. 09/19: Resting comfortably in bed in no acute distress. Noted able to squeeze left hand in slightly squeeze right hand. Will move bilateral lower extremities slightly to command. Positive BM. 09/20: Status post C2 hemilaminectomy, C3 through [address] Victor yesterday. Tolerated procedure well. Restarting tube feeding today. Verbalizing words and does move left upper extremity spontaneously. SUBJECTIVE: 09/21: Afebrile. Neurological unchanged overnight. No bowel movement since 09/18. Tolerating tube feeds at goal. Discussed with care plan via byproducts operator yesterday and she expressed understanding. 09/22: Stable hemodynamics and acceptable gas exchange. Remains weak.Unable to wean from ventilator. 09/23: Remains effectively quadriplegic. Unable to wean from ventilator due to inadequate respiratory stamina. 09/24: Minimal movement nor response to voice or stimulation. No improvement from debilitated state over past several weeks. 09/25: Opens eyes but not to command. Tolerate CPAP trials for several hours now. 09/26: Opens eyes spontaneously. Does not tolerate CPAP and spontaneous breathing trials for long periods. Will need a long-term vent unit. 09/27: Tolerate spontaneous breathing trials for periods of several hours. Fatigues however and requires to be placed back on full ventilator support. Although he opens his eyes and appears to look and track he is severely debilitated and deteriorating. Despite aggressive nutritional support he continues to decline clinically. Objective Vital Signs / I&O: Vital Signs 09/26/17 10:00 09/26/17 10:45 09/26/17 12:00 Temperature 98.1 F Pulse Rate 84 61 75 Respiratory Rate 18 22 Blood Pressure 157/75 H Pulse Oximetry 09/26/17 14:00 09/26/17 16:00 09/26/17 16:54 Temperature 98.0 F Pulse Rate 82 76 Respiratory Rate 18 19 Blood Pressure 136/73 Pulse Oximetry 100 09/26/17 18:00 09/26/17 20:00 09/26/17 20:54 Temperature 98.7 F Pulse Rate 79 86 88 Respiratory Rate 23 23 Blood Pressure 103/60 Pulse Oximetry 09/26/17 22:00 09/26/17 22:27 09/27/17 00:00 Temperature 98.7 F Pulse Rate 66 74 Respiratory Rate 21 25 H Blood Pressure 139/79 Pulse Oximetry 100 09/27/17 00:18 09/27/17 02:00 09/27/17 03:29 Temperature Pulse Rate 78 Respiratory Rate 20 Blood Pressure Pulse Oximetry 98 99 09/27/17 04:00 09/27/17 06:00 09/27/17 07:45 Temperature 96.4 F L Pulse Rate 80 91 H Respiratory Rate 30 H 28 H Blood Pressure 145/68 H Pulse Oximetry 100 Intake & Output 09/26/17 09/27/17 09/27/17 18:59 06:59 18:59 Intake Total 1420 / 1420 1240 / 1240 Output Total 2150 / 2150 705 / 705 Balance -730 / -730 535 / 535 Weight 69.4 kg Intake: IV 200 / 200 200 / 200 Unasyn Inj 3 GM In NS Inj 100 200 / 200 200 / 200 ML @ 200 mls/hr IV.SIG Q6H [facility] Rx#:[id number] Oral 0 / 0 Tube Feeding 570 / 570 570 / 570 Tube Irrigant 120 / 120 Water Bolus Amount 600 / 600 300 / 300 Anesthesia Amount 0 / 0 Other 50 / 50 50 / 50 Output: Urine 600 / 600 Stool 100 / 100 100 / 100 Urine Amount (Catheter) 2049 Indwelling Urethral Catheter 2049 Wound Drainage # 1 Posterior Neck [place] Drain Other: Other Intake Source Saline Solution Date of Last Bowel Movement 09/26/17 09/26/17 # Bowel Movements 1 # Incontinent Bowel Movements 1 Result Diagrams: 09/22/17 02:46 09/27/17 03:39 Objective Remarks: GENERAL: 77-year-old male currently ventilated via trach, responds weakly to stimulation but not able to move right upper extremity. Slight movement left upper extremity. SKIN: Warm and dry. No rash HEAD: Atraumatic. Normocephalic. Eyes moderately sunken. EYES: Pupils equal and round about 2 mm bilaterally reactive. No conjunctival icterus. No injection or drainage. ENT: No nasal bleeding or discharge. Mucous membranes dry. NECK: Trachea midline. Trach site with minimal drainage. CARDIOVASCULAR: S1, S2 no S4. Without murmur. No JVD LUNGS: Coarse rhonchi appreciated bilaterally. Expiratory wheeze. Acceptable bilateral air movement. GASTROINTESTINAL: Abdomen soft, non-tender, nondistended. No guarding. Bowel sounds are present. MUSCULOSKELETAL: Extremities without significant peripheral edema. Well perfused. NEUROLOGICAL: Off all sedation for over 7 days. Minimal response or eye opening today. Able to extend left wrist/hand weakly. Some movement to stimulation on right lower extremity. Assessment and Plan - Assessment and Plan Plan: A/P Assessment and Plan Neuro/Psych: Postoperative C2 hemilaminectomy, C3 through 5 lamina plasty secondary to cervical stenosis, spinal stenosis by Dr. Victor Acute toxic metabolic encephalopathy Quadriplegia Severe cervical spinal cord stenosis, with acute spinal cord injury MRI C-spine 09/15: There appears to be focal severe spinal canal stenosis at C4- 5. There is increased signal within the body of the spinal cord at this level most likely representing some myelomalacia. Moderate diffuse broad-based bulging at C3-4 with some mild increased signal in the spinal cord at this level. Moderate spinal canal stenosis at C6-C7 Bilateral facet arthritis at multiple levels. Extensive primary degenerative changes with disc degeneration and disc space narrowing throughout the entire cervical spine. Severe quadriplegia of the upper and lower extremities with some preserved residual sensory function. Neurosurgery Dr. Victor. Poor chance of neurological recovery for him Neurology Dr. Carvalho, discussed with neurosurgery today. Per his recommendations decrease to methylprednisolone succinate to 40 mg IV every 8 hours starting 09/20 with goal to rapidly taper off. Will decrease to 40 mg twice daily today 09/21. Previously on 250 mg every 6 hours started 09/[address] 08/23: 2 questionable tiny focal hemorrhages. MRI of brain 08/26 chronic small vessel ischemic and atrophic changes CT brain 09/05 revealed bilateral maxillary sinusitis. No other acute finding EEG 09/03 revealed severe encephalopathy. No epileptiform activity Acetaminophen 650 mg by tube every 6 hours as needed fever Oxycodone 5 mg every 4 hours scheduled Morphine sulfate 2 mg IV every 4 hours as needed pain -. PT/OT CV: Uncontrolled hypertension septic shock- resolved Atherosclerotic coronary artery disease Atrial fibrillation Elevated troponin downward trend Fluid overload We will give 2 doses of acetazolamide 250 mg IV 1 today. Discontinue furosemide Amiodarone Discontinued 09/07 secondary to bradycardia and pauses Continue metoprolol 25 mg p.o. q8h but increase to 50 mg twice daily Continue digoxin 0.125 mg daily.. 0.5 recheck level in a.m. 09/22. Will give 0.25 mg 1 at 1800 today (Home medication is NITRENDIPINE 10 mg by mouth daily) Currently off all vasopressors, normotensive Resp: Acute hypoxic hypercapnic respiratory failure COPD with exacerbation/Emphysema Trach site infection Bilateral pleural effusion/status post chest tube right-sided transudative in nature. Chest tube removed 09/04 Multiple bilateral pulmonary masses vs infiltrate, RML mass vs consolidation Pulmonary edema PRVC 16/550/1.03/24/49 Ventilator bundle Continue IV methylprednisolone succinate at increased dose as above for acute spinal cord injury, continue inhaled budesonide 0.5/2 1 inhalation twice daily Albuterol/ipratropium aerosols every 4 hours with albuterol aerosols every 2 hours as needed dyspnea CT pulmonary angiogram revealed 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 Right middle lobe 2.7 x 2.2 x 7's. Spiculated. Left lingula is 3.4 x 3.20 cm. Underlying pronounced emphysematous type changes throughout lung larios. Right pleural effusion. CT thorax 09/08 revealed multiple areas of consolidation bilaterally. Prior granulomatous disease. Focal consolidation or mass in the right middle lobe that appears unchanged. Lung mass biopsied on August 28 -results - CHRONIC INFLAMMATORY AND REACTIVE FIBROBLASTIC TISSUE CONTAINING ENTRAPPED BENIGN EPITHELIUM reconsult IR 09/08 for repeat biopsy Followed by Dr. Hardy/pulmonology. Reconsulted 09/08, recommended repeat CT in 4 weeks. Hold off the IR guided biopsy time due to unstable respiratory status, neuro status s/p percutaneous tracheostomy 09/08 (Biga/Michael). Piperacillin/tazobactam and vancomycin for trach site infection. May remove trach sutures Status post thoracentesis left side 09/09 with 1 L fluid removed. No evidence of infection GI: Hypoalbuminemia C. difficile colitis s/p PEG 09/11. Tolerating tube feeds with Glucerna 1.5 at 55 cc an hour, free water flushes 300 cc every 6 hours Lansoprazole for GI prophylaxis Lactulose 30 cc twice daily for bowel regimen/hyperammonemia P.o. vancomycin 250 every 6 hours for C. difficile intestinal infection : Urinary retention, possible urinary stricture Acute kidney injury Maintain Larson catheter. Monitor urine output, Accurate I's and O's significant difficulty due to obstruction which may be urethral stricture which prevented serial i/o. replaced Larson catheter. Avoid nephrotoxic drugs. DC Larson. Endo: Diabetes mellitus Hyperglycemia History of gout Sliding scale insulin with NovoLog high regimen to maintain euglycemia Currently on insulin detemir 10 units subcu twice daily Holding home medications of allopurinol 300 mg daily and colchicine 0.6 mg as needed Holding home medications of metformin 500 mg twice daily Heme: Leukocytosis Normocytic anemia Monitor CBC daily. Follow trends Coags within normal limits ID: Severe sepsis Trach site infection Healthcare associated pneumonia C. difficile colitis Appreciate ID input. Discontinue IV vancomycin, IV piperacillin/tazobactam switch to ampicillin/sulbactam by ID on 09/19. Continue fluconazole 200 mg daily and p.o. vancomycin 250 milligrams by tube 4 times daily Status post bronchoscopy 09/03 cultures negative Blood culture from 08/20/ 08/26 no growth to date Sputum 09/05 no growth Influenza a and B negative 09/07 Bronchial wash negative FEN: Hypernatremia Quarter normal saline with 20 mEq KCl 1 today. Replace electrolytes as clinically indicated per ICU electrolyte protocol. Received 20 milliequivalents potassium chloride today Monitor CMP On free water 300 every 6, improved. MSK: Elevated BMI PT evaluate and treat Weight loss encouraged Access Peripheral IV. Discontinue arterial line placed 09/19 in OR on 09/20. Prophylaxis -GI -lansoprazole.. DVT -SCD/heparin subcutaneous 5000 units 3 times a day. No signs of bleeding on MRI brain Overall impression: This gentleman remains weak and debilitated, functionally quadriparetic. We are unable to wean him from a ventilator and his general condition and strength is not improving. Long-term prognosis for a meaningful recovery is quite poor. The best we can probably hope for is a skilled facility and chronic ventilator dependency. Family has made him DNR status.
[2017-09-27] MEDS: Senna/Docusate Sodium 8.6/50 MG Tablet PO SCH ×2 (10:00→20:39)
[2017-09-27] MEDS: Metoprolol Tartrate 50 MG Tablet PO SCH ×2 (10:00→20:36)
[2017-09-27] MEDS: MethylPREDNISolone Sod Succinate Inj 40 MG/ML Vial IV.PUSH SCH ×2 (10:01→20:35)
[2017-09-27] MEDS: Chlorhexidine 0.12% Oral Kit 15 ML UDC SWISH-SPIT SCH ×2 (10:10→20:39)
[2017-09-27] MEDS: Beneprotein Powder Packet G-TUBE SCH ×3 (10:18→17:35)
--- NOTE | 2017-09-27 10:27 | P.PNNS ---
Subjective Interval history: 09/16: 77-year-old male admitted on August 21, 2017 with initial complaint of chest pain and right upper quadrant abdominal pain. His initial evaluation revealed multiple pulmonary lesions with pleural effusion. However cytology from thoracentesis and lung biopsy were negative for malignancy. He initially required a tracheostomy placement. He has been on ventilatory support, with sedation recently weaned over the past few days. There was noted within the past day or 2 that he has not been moving his extremities, and an MRI of the cervical spine was subsequently obtained on 09/15/2017. This has revealed severe cervical stenosis with significant abnormal signal intensity within the cord. Review of his records indicates the patient to be moving all extremities during the first week or so of his hospitalization, although it is difficult to determine the grade of his motor function, with the patient very ill and apparently generally weak upon his initial presentation. Physical therapy notes reviewed, however therapy has not been able to consistently work with the patient due to his pulmonary problems and subsequent intubation and sedation. 06/18: Pt awake. Not verbalizing. Not following commands consistently tries to stick out tongue to command. 09/18: The patient is awake in bed. He is trached and on CPAP/PSV settings. He does look at this practitioner and tracks. He did not follow any commands. There was a trace of left foot movement to noxious stimulation. He did have facial grimacing also to noxious stimulation. Nursing reports that he did stick out his tongue after she demonstrated it. She also says that the patient squeezed with the left hand once but did not repeat it. 09/19: The patient went for a C3-5 laminoplasty and post-operatively was transferred back to the ISC unit. 09/20: Patient intubated 09/22: Intubated. Off sedation for examination 09/24: When seen this morning the patient is awake. He has no sedation infusing. He is trached and on CPAP. He is tachypneic and Nursing reports that he is having a harder time handling it today. She reported that he was moving the left upper spontaneously earlier. During evaluation he did not response to any stimuli but subsequently did move the left hand fingers slightly. Dr Srivastava with Palliative Care is to meet with the patient's son this morning. 09/25: Spoke with Palliative Care this morning who said family has made the patient essentially a no code. He believes they are leaning toward withdrawal but are waiting for a family member to travel here. The patient is awake and alert when seen. He is seen moving the left hand spontaneously after stimulation but has no response to noxious stimulation with the other extremities. 09/27: This morning the patient is awake and having an IV line placed by the Vascular Access team. He was seen spontaneously moving the left upper extremity prior to being seen. He nods his head slightly when told "hello" in [place]. He is still trached and on CPAP/PSV settings. He did not have any response to noxious stimulation of the right upper or either lower extremity. A review of Palliative Care's note yesterday indicates the family is still waiting for a family member to arrive from [place] before considering comfort measures. <Roc Castillo E - Last Filed: 09/27/17 10:01> Physical Exam Vital signs: Vital Signs 09/26/17 10:45 09/26/17 12:00 09/26/17 14:00 Temperature 98.1 F Pulse Rate 61 75 82 Respiratory Rate 18 22 Blood Pressure 157/75 H Pulse Oximetry 09/26/17 16:00 09/26/17 16:54 09/26/17 18:00 Temperature 98.0 F Pulse Rate 76 79 Respiratory Rate 18 19 Blood Pressure 136/73 Pulse Oximetry 100 09/26/17 20:00 09/26/17 20:54 09/26/17 22:00 Temperature 98.7 F Pulse Rate 86 88 66 Respiratory Rate 23 23 Blood Pressure 103/60 Pulse Oximetry 09/26/17 22:27 09/27/17 00:00 09/27/17 00:18 Temperature 98.7 F Pulse Rate 74 Respiratory Rate 21 25 H Blood Pressure 139/79 Pulse Oximetry 100 98 09/27/17 02:00 09/27/17 03:29 09/27/17 04:00 Temperature 96.4 F L Pulse Rate 78 80 Respiratory Rate 20 30 H Blood Pressure 145/68 H Pulse Oximetry 99 09/27/17 06:00 09/27/17 07:40 09/27/17 07:45 Temperature Pulse Rate 91 H 93 H Respiratory Rate 28 H 28 H Blood Pressure Pulse Oximetry 100 Intake & Output 09/26/17 09/27/17 09/27/17 18:59 06:59 18:59 Intake Total 1420 / 1420 1240 / 1240 Output Total 2150 / 2150 705 / 705 Balance -730 / -730 535 / 535 Weight 69.4 kg Intake: IV 200 / 200 200 / 200 Unasyn Inj 3 GM In NS Inj 100 200 / 200 200 / 200 ML @ 200 mls/hr IV.SIG Q6H MICHELET Rx#:[id number] Oral 0 / 0 Tube Feeding 570 / 570 570 / 570 Tube Irrigant 120 / 120 Water Bolus Amount 600 / 600 300 / 300 Anesthesia Amount 0 / 0 Other 50 / 50 50 / 50 Output: Urine 600 / 600 Stool 100 / 100 100 / 100 Urine Amount (Catheter) 2049 Indwelling Urethral Catheter 2049 Wound Drainage # 1 Posterior Neck [place] Drain Other: Other Intake Source Saline Solution Date of Last Bowel Movement 09/26/17 09/26/17 # Bowel Movements 1 # Incontinent Bowel Movements 1 Narrative: GENERAL: Awake & alert. Trached and on CPAP/PSV settings. His respiratory rate does increase w/noxious stimulation. HEENT: Normocephalic, atraumatic. MUSCULOSKELETAL: No evident clubbing or deformity. Dependent edema to all extremities. Spontaneously moving left upper which appears purposeful. NEUROLOGICAL: Awake. Trached, nonverbal. Moving LUE spontaneously & appears purposeful. No response to local noxious stimulation of RUE or BLE. - Urinary Catheter Management Indwelling Urethral Catheter Cath placed during this visit: yes Reason for continuing: Acute urinary retention Insertion date: 08/20/17 Insertion time: 17:00 <Roc Castillo E - Last Filed: 09/27/17 10:01> Vital signs: Vital Signs 09/27/17 20:00 09/27/17 20:15 09/27/17 22:00 Temperature 97.9 F Pulse Rate 84 84 73 Respiratory Rate 24 18 Blood Pressure 147/76 H Pulse Oximetry 100 09/27/17 23:32 09/28/17 00:00 09/28/17 02:00 Temperature 96.4 F L Pulse Rate 74 89 Respiratory Rate 25 H Blood Pressure 134/66 Pulse Oximetry 99 100 09/28/17 04:00 09/28/17 06:00 09/28/17 08:10 Temperature 98.4 F Pulse Rate 90 82 80 Respiratory Rate 24 23 Blood Pressure 131/70 Pulse Oximetry 100 100 09/28/17 09:00 09/28/17 15:04 Temperature Pulse Rate Respiratory Rate 27 H 25 H Blood Pressure Pulse Oximetry Intake & Output 09/28/17 09/28/17 09/29/17 06:59 18:59 06:59 Intake Total 1140 / 1140 Output Total 1949 Balance -810 / -810 Weight 68.2 kg Intake: Tube Feeding 540 / 540 Water Bolus Amount 600 / 600 Output: Urine Amount (Catheter) 1949 Indwelling Urethral Catheter 1949 Other: Date of Last Bowel Movement 09/28/17 - Urinary Catheter Management Indwelling Urethral Catheter Cath placed during this visit: no <Anuj Victor - Last Filed: 09/28/17 19:13> Assessment and Plan - Plan Impression: 1. 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 2. Sepsis 3. Respiratory failure, tracheostomy in place. Now on CPAP 09/23: "Remains with flaccid quadriplegia-no definite changes compared to preoperative." - Dr Victor at 1823 Patient awake & alert. Spontaneous LUE movement which seems purposeful. No response w/RUE or BLE to noxious stimulation. Reviewed labs for today. Sodium 138. eGFR >89. MRI cervical spine conclusion: "1. Status post laminectomy at the C3-C5 levels. Surgical hardware seen at the posterior elements at these levels. 2. Moderate stenosis at the C4-C5 level secondary to disc bulge and central disc protrusion. There is abnormal signal again seen within the cord. The cord appears small this region. This likely secondary to myelomalacia. 3. Mild to moderate narrowing of the thecal sac at the C5-C6 and C6-C7 level. 4. Neural foraminal narrowing throughout the cervical spine as described above. "Dwain 4d - Ino Cee MD 09/25/2017 5:55 PM POD #8 () s/p: C3-5 laminoplasty Plan: Primary & critical care management per [employer]. Palliative Care following. [place] J cervical collar at all times. <Roc Castillo - Last Filed: 09/27/17 10:01>
[2017-09-27] MEDS: Artificial Tears Opth Drops 15 ML Bottle EACH EYE SCH ×2 (13:55→21:05)
[2017-09-28] MEDS: Insulin NovoLOG Aspart Correctional Sugar Inj SQ SCH ×5 (00:16→20:55)
[2017-09-28] MEDS: Oral Hygiene Kit OROPHARYNG SCH ×4 (00:17→18:23)
[2017-09-28] MEDS: Artificial Tears Opth Drops 15 ML Bottle EACH EYE SCH ×4 (02:02→23:02)
[2017-09-28] MEDS: Chlorhexidine Gluconate 2% 1 Pack (2 Cloths) TOPICAL PRN (06:34)
[2017-09-28] MEDS: Chlorhexidine Gluconate 2% 1 Pack (2 Cloths) TOPICAL SCH (06:34)
[2017-09-28] MEDS: Chlorhexidine 0.12% Oral Kit 15 ML UDC SWISH-SPIT SCH ×2 (08:48→20:49)
[2017-09-28] MEDS: Metoprolol Tartrate 50 MG Tablet PO SCH ×2 (10:00→20:47)
[2017-09-28] MEDS: Senna/Docusate Sodium 8.6/50 MG Tablet PO SCH ×2 (10:00→20:50)
[2017-09-28] MEDS: MethylPREDNISolone Sod Succinate Inj 40 MG/ML Vial IV.PUSH SCH ×2 (10:01→20:48)
[2017-09-28] MEDS: Insulin Detemir Inj 1,000 UNIT/10 ML Vial SQ SCH ×2 (10:04→20:49)
[2017-09-28] MEDS: Beneprotein Powder Packet G-TUBE SCH ×3 (10:30→18:23)
--- NOTE | 2017-09-28 10:41 | P.PNNS ---
Subjective Interval history: 09/16: 77-year-old male admitted on August 21, 2017 with initial complaint of chest pain and right upper quadrant abdominal pain. His initial evaluation revealed multiple pulmonary lesions with pleural effusion. However cytology from thoracentesis and lung biopsy were negative for malignancy. He initially required a tracheostomy placement. He has been on ventilatory support, with sedation recently weaned over the past few days. There was noted within the past day or 2 that he has not been moving his extremities, and an MRI of the cervical spine was subsequently obtained on 09/15/2017. This has revealed severe cervical stenosis with significant abnormal signal intensity within the cord. Review of his records indicates the patient to be moving all extremities during the first week or so of his hospitalization, although it is difficult to determine the grade of his motor function, with the patient very ill and apparently generally weak upon his initial presentation. Physical therapy notes reviewed, however therapy has not been able to consistently work with the patient due to his pulmonary problems and subsequent intubation and sedation. 06/18: Pt awake. Not verbalizing. Not following commands consistently tries to stick out tongue to command. 09/18: The patient is awake in bed. He is trached and on CPAP/PSV settings. He does look at this practitioner and tracks. He did not follow any commands. There was a trace of left foot movement to noxious stimulation. He did have facial grimacing also to noxious stimulation. Nursing reports that he did stick out his tongue after she demonstrated it. She also says that the patient squeezed with the left hand once but did not repeat it. 09/19: The patient went for a C3-5 laminoplasty and post-operatively was transferred back to the ISC unit. 09/20: Patient intubated 09/22: Intubated. Off sedation for examination 09/24: When seen this morning the patient is awake. He has no sedation infusing. He is trached and on CPAP. He is tachypneic and Nursing reports that he is having a harder time handling it today. She reported that he was moving the left upper spontaneously earlier. During evaluation he did not response to any stimuli but subsequently did move the left hand fingers slightly. Dr Srivastava with Palliative Care is to meet with the patient's son this morning. 09/25: Spoke with Palliative Care this morning who said family has made the patient essentially a no code. He believes they are leaning toward withdrawal but are waiting for a family member to travel here. The patient is awake and alert when seen. He is seen moving the left hand spontaneously after stimulation but has no response to noxious stimulation with the other extremities. 09/27: This morning the patient is awake and having an IV line placed by the Vascular Access team. He was seen spontaneously moving the left upper extremity prior to being seen. He nods his head slightly when told "hello" in [place]. He is still trached and on CPAP/PSV settings. He did not have any response to noxious stimulation of the right upper or either lower extremity. A review of Palliative Care's note yesterday indicates the family is still waiting for a family member to arrive from [place] before considering comfort measures. 09/28: Today the patient is awake and alert. He is still trached but on a T- piece. Nursing does report that he has been on the T-piece overnight. She reports that he is tachypneic but maintaining his oxygen saturation. When greeted in [place] he reached his left hand up off the bed for this practitioner 's hand. He did have slight movement of the right hand to command. There was no response to the lower extremities to any stimulation. <Roc Castillo E - Last Filed: 09/28/17 10:52> Physical Exam Vital signs: Vital Signs 09/27/17 11:04 09/27/17 11:36 09/27/17 12:00 Temperature 98.7 F Pulse Rate 74 Respiratory Rate 21 19 22 Blood Pressure 153/74 H Pulse Oximetry 100 100 09/27/17 14:00 09/27/17 14:40 09/27/17 14:46 Temperature Pulse Rate 68 Respiratory Rate 19 Blood Pressure Pulse Oximetry 100 09/27/17 15:30 09/27/17 16:00 09/27/17 18:00 Temperature 97.5 F L Pulse Rate 84 74 Respiratory Rate 24 Blood Pressure 159/87 H Pulse Oximetry 97 100 09/27/17 18:08 09/27/17 20:00 09/27/17 20:15 Temperature 97.9 F Pulse Rate 84 84 Respiratory Rate 13 24 18 Blood Pressure 147/76 H Pulse Oximetry 100 09/27/17 22:00 09/27/17 23:32 09/28/17 00:00 Temperature 96.4 F L Pulse Rate 73 74 Respiratory Rate 25 H Blood Pressure 134/66 Pulse Oximetry 99 100 09/28/17 02:00 09/28/17 04:00 09/28/17 06:00 Temperature 98.4 F Pulse Rate 89 90 82 Respiratory Rate 24 Blood Pressure 131/70 Pulse Oximetry 100 09/28/17 08:10 09/28/17 09:00 Temperature Pulse Rate 80 Respiratory Rate 23 27 H Blood Pressure Pulse Oximetry 100 Intake & Output 09/27/17 09/28/17 09/28/17 18:59 06:59 18:59 Intake Total 1197 / 1197 1140 / 1140 Output Total 1350 / 1350 1949 Balance -153 / -153 -810 / -810 Weight 68.2 kg Intake: Tube Feeding 597 / 597 540 / 540 Water Bolus Amount 600 / 600 600 / 600 Output: Stool 200 / 200 Urine Amount (Catheter) 1150 / 1150 1949 Indwelling Urethral Catheter 1150 / 1150 1949 Other: Date of Last Bowel Movement 09/27/17 09/28/17 Narrative: GENERAL: Awake & alert. Trached and on T-piece. He is tachypneic. HEENT: Normocephalic, atraumatic. Pupils equal 2mm reactive. MUSCULOSKELETAL: No evident clubbing or deformity. Dependent edema to all extremities. Spontaneously moving left upper purposefully and trace movement of right upper to command. NEUROLOGICAL: Awake. Trached, nonverbal. Moving LUE spontaneously & purposeful. Trace movement of right hand to command, slightly stronger response w/RUE to local noxious stimulation. No response to local noxious stimulation of BLE. - Urinary Catheter Management Indwelling Urethral Catheter Cath placed during this visit: yes Reason for continuing: Chronic Urinary Retention Insertion date: 08/20/17 Insertion time: 17:00 <Roc Castillo E - Last Filed: 09/28/17 10:52> Vital signs: Vital Signs 09/27/17 20:00 09/27/17 20:15 09/27/17 22:00 Temperature 97.9 F Pulse Rate 84 84 73 Respiratory Rate 24 18 Blood Pressure 147/76 H Pulse Oximetry 100 09/27/17 23:32 09/28/17 00:00 09/28/17 02:00 Temperature 96.4 F L Pulse Rate 74 89 Respiratory Rate 25 H Blood Pressure 134/66 Pulse Oximetry 99 100 09/28/17 04:00 09/28/17 06:00 09/28/17 08:10 Temperature 98.4 F Pulse Rate 90 82 80 Respiratory Rate 24 23 Blood Pressure 131/70 Pulse Oximetry 100 100 09/28/17 09:00 09/28/17 15:04 Temperature Pulse Rate Respiratory Rate 27 H 25 H Blood Pressure Pulse Oximetry Intake & Output 09/28/17 09/28/17 09/29/17 06:59 18:59 06:59 Intake Total 1140 / 1140 Output Total 1949 Balance -810 / -810 Weight 68.2 kg Intake: Tube Feeding 540 / 540 Water Bolus Amount 600 / 600 Output: Urine Amount (Catheter) 1949 Indwelling Urethral Catheter 1949 Other: Date of Last Bowel Movement 09/28/17 - Urinary Catheter Management Indwelling Urethral Catheter Cath placed during this visit: no <Anuj Victor - Last Filed: 09/28/17 19:23> Assessment and Plan - Plan Impression: 1. 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 2. Sepsis 3. Respiratory failure, tracheostomy in place. Now on CPAP 09/23: "Remains with flaccid quadriplegia-no definite changes compared to preoperative." - Dr Victor at 1823 Patient awake & alert. Spontaneous & purposeful LUE movement. Trace right hand movement to command w/stronger RUE response to local noxious stimulation. No response w/BLE to noxious stimulation. Past 24 hrs: Afebrile. No labs for today. MRI cervical spine conclusion: "1. Status post laminectomy at the C3-C5 levels. Surgical hardware seen at the posterior elements at these levels. 2. Moderate stenosis at the C4-C5 level secondary to disc bulge and central disc protrusion. There is abnormal signal again seen within the cord. The cord appears small this region. This likely secondary to myelomalacia. 3. Mild to moderate narrowing of the thecal sac at the C5-C6 and C6-C7 level. 4. Neural foraminal narrowing throughout the cervical spine as described above. " - Ino Cee MD 09/25/2017 5:55 PM POD #9 () s/p: C3-5 laminoplasty Plan: Primary & critical care management per [employer]. Palliative Care following. [place] J cervical collar at all times. <Roc Castillo - Last Filed: 09/28/17 10:52> - Attending Attestation The exam, history, and the medical decision-making described in the above note were completed with the assistance of the mid-level provider. I reviewed and agree with the findings presented. I attest that I had a [id number] encounter with the patient on the same day, and personally performed and documented my assessment and findings in the medical record. On examination today, the patient is mildly lethargic. He arouses to voice and follows some simple commands for his family. There is moderate strength right biceps with mild right wrist flexors and extensors and grasp. Trace left biceps and grasp. No lower extremity motor function. Patient indicates some sensation to light touch in the lower extremities The 09/25/2017 MRI cervical spine images were reviewed with the patient's son today. He has been compared to the preoperative study. There remains moderate stenosis at the C4-5 level, but this appears to be partly due to some epidural fluid, possibly hematoma in a very focal area. The previous significant dorsal cord compression from ligament hypertrophy is resolved. There is persistent significant increased signal intensity in the spinal cord at the C4-5 level with significant thinning of the cord, unchanged compared to preoperative. Advised the patient's son that a more extensive decompression could be pursued with full laminectomy and fusion, however this may be associated with its own increase chance of failed fusion, wound healing issues and more extensive anesthesia time. Realistically given the severe degree of atrophy and myelomalacia within the cord, it is unlikely that the patient will have any better outcome with a more aggressive decompression and stabilization procedure. The patient's son appears to understand this and indicates that he does not wish to try to pursue any further surgical intervention. I advised him that chance of any recovery of sensorimotor function is very slim, and if it does occur it could take several months. I advised him that it is highly unlikely that with any treatment the patient would be ambulatory again. All questions answered. Palliative care continues to follow the patient. <Anuj Victor - Last Filed: 09/28/17 19:23>
--- NOTE | 2017-09-28 11:04 | P.PNCC ---
Subjective Subjective Remarks/Hospital Course: This is a 77-year-old La[place] male/Mandarin speaking only. Date of admission 08/21/2017. Date of consultation 08/23/2017. Past medical history is documented as hypertension, gout and diabetes mellitus. He is on no home medications. He does have remote history of tuberculosis 10 years ago. He quit tobacco use 20 years ago. He presented to [facility] on 08/21/2017 with a 3-4 days of intermittent pain in this region that acutely acutely worsened on 08/20 . They state the pain is in the right upper quadrant and radiates to the upper thorax and around his back. Hospital workup included a CT pulmonary angiogram which revealed bilateral emphysema. Multiple bilateral pulmonary nodules present with the largest in the right lung measuring 2.8 cm and the largest in the left lung measuring 2.6 cm. Severe compressive atelectasis in the right lower lobe. Moderate-sized pulmonary effusion. Pleural thickening in the anterior inferior hemothorax. Right paratracheal lymph node 15 mm. 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 No lytic bone lesions. Also noted significant coronary artery and aortic atherosclerotic calcifications. Patient was evaluated by hematology. Recommended lung biopsy when stable. She has become increasingly short of breath and was transferred from a [facility] to [facility] at 70%. Patient became less responsive and we were consulted. Patient required intubation/central line placement is currently having a right pigtail catheter placed to remove fluid from right lung. 08/24: hypotensive this AM requiring levophed at 8 mcg/min. drained 600cc of serosanguinous fluid out of chest tube. responded successfully to straight-leg challenge. intubated, sedated. remains very critically ill. 08/25: Afebrile. Off all antihypertensives and vasopressin. Currently normal saline at 100 cc an hour. On propofol and fentanyl drips. 08/26: Afebrile. No tonsillar creatinine currently at 20 cc an hour. Remains on increased propofol drip at 40 mcg/kg/min secondary to severe agitation overnight and on attempted spontaneous breathing trials. Will try dexmedetomidine attempt to wean today. 08/27: Worsening lung infiltrates associated with hydration. Afebrile. Known diastolic dysfunction. He appears to be exquisitely sensitive to fluid balance. Presently converting to Precedex and will try spontaneous breathing trials. 08/28: Continued worsening bilateral lung infiltrates. IV fluid has been stopped yesterday, will add additional diuretics. Diffusion gradient worsened, unable to wean from ventilator. 08/29: Mild improvement in lung infiltrates after diuresis without harming renal function. Remains ventilator dependent. Biopsy yesterday, results pending. 08/30: Worsening gas exchange with deteriorating diffusion capacity and requirements for increased inspired oxygen concentration. This all despite 2 L diuresis. Await pathology results. 08/31: Lung infiltrates resolving with diuresis. Continues to behave like diastolic heart failure. Contraction alkalosis is developing will add a carbonic anhydrase inhibitor for a couple of days. T-max 100.8 but for the most part he has been afebrile. Lung mass does appear to be a malignancy. Agree with attempt to rebiopsy at some point. We will continue to diuresis until his kidneys squeak. At 7-10 days of antibiotics it may be best to stop treatment and reculture for fevers. I will defer to the pulmonary service. 09/01: remains intubated and sedated. continues to fail any weaning attempts. consulted palliative to assist in goals of care: may need tracheostomy for further aggressive care. 09/02: palliative meeting with family again today. no improvements. it has been greater than 10 days of full empiric antibiotics: will discontinue and re- culture for fever. 09/03: chest tube on water seal with minimal output. cxr unchanged. CT removed today on my eval. no other changes or improvements. unlikely to have favorable outcome. quite hypercarbic despite full vent support: will make changes to ventilation to assist with hypercarbic. 09/04: Remains sedated, orally intubated on mechanical ventilation. 09/05: Remains sedated, orally intubated on mechanical ventilation. Failed CPAP trials yesterday. 09/06: Sedated, arousable, orally intubated on mechanical ventilation. Failed CPAP trials yesterday. Family wishes to continue aggressive care and desire trach and PEG. 09/07: T-max 100.3. One bowel movement yesterday. Failed CPAP trials yesterday. OG tube plugged overnight and able to place new feeding tube at the present time. We will switch all medications to IV at the present time including amiodarone drip at 0.5 mg/min. Check digoxin level prior to resuming IV. 09/08: T-max 99.2. Currently afebrile. One bowel movement overnight. Plan for percutaneous tracheostomy today. GI consult for PEG placement. CT chest revealed small bilateral pleural effusions. Persistent right middle lobe mass which we will consult IR again for rebiopsy. Will ask pulmonary to see again 09/09: Remains on full vent support more critical today increasing oxygen requirement FiO2 at 65 of have increase PEEP to 10 to attempt wean oxygen. Air entry markedly diminished bilaterally. Chest x-ray shows bilateral prominent interstitial infiltrates. Fluid up by approximately 10 kg. I will discontinue half-normal saline. Lasix 40 mg IV 1 09/10: Patient remains critical showing agonal breathing on the ventilator. Bilateral coarse breath sounds. Chest x-ray shows bilateral patchy infiltrates improved left effusion after thoracentesis and removal of 1 L of fluid. However FiO2 requirement remains high at 65%. UO 1.5L in 24 hours. Lab work pending. IV steroids started for probable COPD exacerbation given history of smoking 09/11: Remains critical but slightly more stable. Breathing pattern has improved and oxygenation has improved after starting IV steroids for COPD exacerbation and thoracentesis on 09/09/2017. Currently FiO2 down to 50%, PEEP at 10. We will further wean. Sodium increased to 151 start quarter normal saline, increase Lasix. Family wished to proceed with full code. PEG today 09/12: Remains intubated sedated with propofol. Urine output 1.8 L. BUN/ creatinine slightly increased today 72/1.34. Will reduce Lasix dose also reduce Solu-Medrol. Vent dyssynchrony has improved but FiO2 remains high at 55% 09/13: Off all sedation for 24 hours. Apparently patient notes has had one family is at bedside asking questions. BUN/creatinine slightly improved 71/ 1.14 from 72/1.34. WBC count slightly improved to 20.7. FiO2 at 45% chest x- ray shows some interval improvement. Also Na improved to 147 09/14: Remains intubated off sedation. Slightly tachypneic on pressure support . Urine output approximately 1500 mL in 24 hours 09/15: Patient clearly more awake today seems to understand some of the commands. Concern about quadriparesis patient is not able to withdrawal to pain 4, even though it appears he does feel the pain. MRI of the C-spine ordered. Neurology consulted. Otherwise BUN/creatinine slightly improved 09/16: Patient remains quadriparetic, slight movement of the left upper extremity. MRI of the C-spine shows focal severe spinal canal stenosis at C4-5 , with increased signal within the body of the spinal cord at this level most likely representing some myelomalacia. Moderate diffuse broad-based bulging at C3-4 with some mild increased signal in the spinal cord at this level. Moderate spinal canal stenosis at C6-C7. Also there is evidence of tracheostomy site infection. Explained MRI findings to son and patient's using electronic mobile phone salesperson. Discussed with Dr. Carvalho. Increase Solu-Medrol to 250 mg IV every 6 hours. Consult neurosurgery 09/17: Remains septic, remains quadriplegic. Slight movements of the left upper extremity noted. C. difficile positive p.o. vancomycin added by ID yesterday. Appreciate input from Dr. Victor. Patient hs severe upper cervical stenosis with myelopathy and resultant SCI/severe quadriplegia of the upper and lower extremities. Prognosis very poor per neurosurgery 09/18: Afebrile. Tube feeds are at goal. No change in neurological status. Left upper extremity movement only. 09/19: Resting comfortably in bed in no acute distress. Noted able to squeeze left hand in slightly squeeze right hand. Will move bilateral lower extremities slightly to command. Positive BM. 09/20: Status post C2 hemilaminectomy, C3 through [address] Victor yesterday. Tolerated procedure well. Restarting tube feeding today. Verbalizing words and does move left upper extremity spontaneously. SUBJECTIVE: 09/21: Afebrile. Neurological unchanged overnight. No bowel movement since 09/18. Tolerating tube feeds at goal. Discussed with care plan via field counsel yesterday and she expressed understanding. 09/22: Stable hemodynamics and acceptable gas exchange. Remains weak.Unable to wean from ventilator. 09/23: Remains effectively quadriplegic. Unable to wean from ventilator due to inadequate respiratory stamina. 09/24: Minimal movement nor response to voice or stimulation. No improvement from debilitated state over past several weeks. 09/25: Opens eyes but not to command. Tolerate CPAP trials for several hours now. 09/26: Opens eyes spontaneously. Does not tolerate CPAP and spontaneous breathing trials for long periods. Will need a long-term vent unit. 09/27: Tolerate spontaneous breathing trials for periods of several hours. Fatigues however and requires to be placed back on full ventilator support. Although he opens his eyes and appears to look and track he is severely debilitated and deteriorating. Despite aggressive nutritional support he continues to decline clinically. 09/28: Tolerating T piece trial for the first time today. He remains severely debilitated and there is been no change in the neurologic exam. Objective Vital Signs / I&O: Vital Signs 09/27/17 11:04 09/27/17 11:36 09/27/17 12:00 Temperature 98.7 F Pulse Rate 74 Respiratory Rate 21 19 22 Blood Pressure 153/74 H Pulse Oximetry 100 100 09/27/17 14:00 09/27/17 14:40 09/27/17 14:46 Temperature Pulse Rate 68 Respiratory Rate 19 Blood Pressure Pulse Oximetry 100 09/27/17 15:30 09/27/17 16:00 09/27/17 18:00 Temperature 97.5 F L Pulse Rate 84 74 Respiratory Rate 24 Blood Pressure 159/87 H Pulse Oximetry 97 100 09/27/17 18:08 09/27/17 20:00 09/27/17 20:15 Temperature 97.9 F Pulse Rate 84 84 Respiratory Rate 13 24 18 Blood Pressure 147/76 H Pulse Oximetry 100 09/27/17 22:00 09/27/17 23:32 09/28/17 00:00 Temperature 96.4 F L Pulse Rate 73 74 Respiratory Rate 25 H Blood Pressure 134/66 Pulse Oximetry 99 100 09/28/17 02:00 09/28/17 04:00 09/28/17 06:00 Temperature 98.4 F Pulse Rate 89 90 82 Respiratory Rate 24 Blood Pressure 131/70 Pulse Oximetry 100 09/28/17 08:10 09/28/17 09:00 Temperature Pulse Rate 80 Respiratory Rate 23 27 H Blood Pressure Pulse Oximetry 100 Intake & Output 09/27/17 09/28/17 09/28/17 18:59 06:59 18:59 Intake Total 1197 / 1197 1140 / 1140 Output Total 1350 / 1350 1949 Balance -153 / -153 -810 / -810 Weight 68.2 kg Intake: Tube Feeding 597 / 597 540 / 540 Water Bolus Amount 600 / 600 600 / 600 Output: Stool 200 / 200 Urine Amount (Catheter) 1150 / 1150 1949 Indwelling Urethral Catheter 1149 Other: Date of Last Bowel Movement 09/27/17 09/28/17 Result Diagrams: 09/22/17 02:46 09/27/17 03:39 Objective Remarks: GENERAL: 77-year-old male currently ventilated via trach SKIN: Warm and dry. No rash HEAD: Atraumatic. Normocephalic. Eyes moderately sunken. EYES: Pupils equal and round about 3 mm bilaterally reactive. No conjunctival icterus. No injection or drainage. ENT: No nasal bleeding or discharge. Mucous membranes dry. NECK: Trachea midline. Trach site with minimal drainage. T piece in place. CARDIOVASCULAR: S1, S2 no S4. Without murmur. No JVD LUNGS: Coarse rhonchi appreciated bilaterally. Light expiratory wheeze. Acceptable bilateral air movement. GASTROINTESTINAL: Abdomen soft, non-tender, nondistended. No guarding. Bowel sounds are present. MUSCULOSKELETAL: Extremities without significant peripheral edema. Well perfused. NEUROLOGICAL: Off all sedation for over 10 days. Minimal response or eye opening today. Able to extend left wrist/hand weakly. Some movement to stimulation on right lower extremity. Assessment and Plan - Assessment and Plan Plan: A/P Assessment and Plan Neuro/Psych: Postoperative C2 hemilaminectomy, C3 through 5 lamina plasty secondary to cervical stenosis, spinal stenosis by Dr. Victor Acute toxic metabolic encephalopathy Quadriplegia Severe cervical spinal cord stenosis, with acute spinal cord injury MRI C-spine 09/15: There appears to be focal severe spinal canal stenosis at C4- 5. There is increased signal within the body of the spinal cord at this level most likely representing some myelomalacia. Moderate diffuse broad-based bulging at C3-4 with some mild increased signal in the spinal cord at this level. Moderate spinal canal stenosis at C6-C7 Bilateral facet arthritis at multiple levels. Extensive primary degenerative changes with disc degeneration and disc space narrowing throughout the entire cervical spine. Severe quadriplegia of the upper and lower extremities with some preserved residual sensory function. Neurosurgery Dr. Victor. Poor chance of neurological recovery for him Neurology Dr. Carvalho, discussed with neurosurgery today. Per his recommendations decrease to methylprednisolone succinate to 40 mg IV every 8 hours starting 09/20 with goal to rapidly taper off. Will decrease to 40 mg twice daily today 09/21. Previously on 250 mg every 6 hours started 09/[address] 08/23: 2 questionable tiny focal hemorrhages. MRI of brain 08/26 chronic small vessel ischemic and atrophic changes CT brain 09/05 revealed bilateral maxillary sinusitis. No other acute finding EEG 09/03 revealed severe encephalopathy. No epileptiform activity Acetaminophen 650 mg by tube every 6 hours as needed fever Oxycodone 5 mg every 4 hours scheduled Morphine sulfate 2 mg IV every 4 hours as needed pain 6 -10. PT/OT CV: Uncontrolled hypertension septic shock- resolved Atherosclerotic coronary artery disease Atrial fibrillation Elevated troponin downward trend Fluid overload We will give 2 doses of acetazolamide 250 mg IV 1 today. Discontinue furosemide Amiodarone Discontinued 09/07 secondary to bradycardia and pauses Continue metoprolol 25 mg p.o. q8h but increase to 50 mg twice daily Continue digoxin 0.125 mg daily.. 0.5 recheck level in a.m. 09/22. Will give 0.25 mg 1 at 1800 today (Home medication is NITRENDIPINE 10 mg by mouth daily) Currently off all vasopressors, normotensive Resp: Acute hypoxic hypercapnic respiratory failure COPD with exacerbation/Emphysema Trach site infection Bilateral pleural effusion/status post chest tube right-sided transudative in nature. Chest tube removed 09/04 Multiple bilateral pulmonary masses vs infiltrate, RML mass vs consolidation Pulmonary edema PRVC 16/550/1.03/24/49 Ventilator bundle Continue IV methylprednisolone succinate at increased dose as above for acute spinal cord injury, continue inhaled budesonide 0.5/2 1 inhalation twice daily Albuterol/ipratropium aerosols every 4 hours with albuterol aerosols every 2 hours as needed dyspnea CT pulmonary angiogram revealed 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 Right middle lobe 2.7 x 2.2 x 7's. Spiculated. Left lingula is 3.4 x 3.20 cm. Underlying pronounced emphysematous type changes throughout lung larios. Right pleural effusion. CT thorax 09/08 revealed multiple areas of consolidation bilaterally. Prior granulomatous disease. Focal consolidation or mass in the right middle lobe that appears unchanged. Lung mass biopsied on August 28 -results - CHRONIC INFLAMMATORY AND REACTIVE FIBROBLASTIC TISSUE CONTAINING ENTRAPPED BENIGN EPITHELIUM reconsult IR 09/08 for repeat biopsy Followed by Dr. Hardy/pulmonology. Reconsulted 09/08, recommended repeat CT in 4 weeks. Hold off the IR guided biopsy time due to unstable respiratory status, neuro status s/p percutaneous tracheostomy 09/08 (Biga/Michael). Piperacillin/tazobactam and vancomycin for trach site infection. May remove trach sutures Status post thoracentesis left side 09/09 with 1 L fluid removed. No evidence of infection. Tolerating T-piece for first time today 09/28. GI: Hypoalbuminemia C. difficile colitis s/p PEG 09/11. Tolerating tube feeds with Glucerna 1.5 at 55 cc an hour, free water flushes 300 cc every 6 hours Lansoprazole for GI prophylaxis Lactulose 30 cc twice daily for bowel regimen/hyperammonemia P.o. vancomycin 250 every 6 hours for C. difficile intestinal infection : Urinary retention, possible urinary stricture Acute kidney injury Maintain Larson catheter. Monitor urine output, Accurate I's and O's significant difficulty due to obstruction which may be urethral stricture which prevented serial i/o. replaced Larson catheter. Avoid nephrotoxic drugs. DC Larson. Endo: Diabetes mellitus Hyperglycemia History of gout Sliding scale insulin with NovoLog high regimen to maintain euglycemia Currently on insulin detemir 10 units subcu twice daily Holding home medications of allopurinol 300 mg daily and colchicine 0.6 mg as needed Holding home medications of metformin 500 mg twice daily Heme: Leukocytosis Normocytic anemia Monitor CBC daily. Follow trends Coags within normal limits ID: Severe sepsis Trach site infection Healthcare associated pneumonia C. difficile colitis Appreciate ID input. Discontinue IV vancomycin, IV piperacillin/tazobactam switch to ampicillin/sulbactam by ID on 09/19. Continue fluconazole 200 mg daily and p.o. vancomycin 250 milligrams by tube 4 times daily Status post bronchoscopy 09/03 cultures negative Blood culture from 08/20/ 08/26 no growth to date Sputum 09/05 no growth Influenza a and B negative 09/07 Bronchial wash negative FEN: Hypernatremia Quarter normal saline with 20 mEq KCl 1 today. Replace electrolytes as clinically indicated per ICU electrolyte protocol. Received 20 milliequivalents potassium chloride today Monitor CMP On free water 300 every 6, improved. MSK: Elevated BMI PT evaluate and treat Weight loss encouraged Access Peripheral IV. Discontinue arterial line placed 09/19 in OR on 09/20. Prophylaxis -GI -lansoprazole.. DVT -SCD/heparin subcutaneous 5000 units 3 times a day. No signs of bleeding on MRI brain Overall impression: This gentleman remains weak and debilitated, functionally quadriparetic. We have been unable to wean him from a ventilator and his general condition and strength is not improving. Long-term prognosis for a meaningful recovery is quite poor. The best we can probably hope for is a skilled facility. This is the first time he is tolerated a T piece trial hopefully he can sustain it.
[2017-09-28] MEDS ORDERED: Insulin NovoLOG Aspart Correctional Sugar Inj SQ SCH (12:00)
[2017-09-28] MEDS: ALPRAZolam 0.25 MG Tablet PO PRN (23:13)
[2017-09-29] MEDS: Insulin NovoLOG Aspart Correctional Sugar Inj SQ SCH ×4 (03:54→21:33)
[2017-09-29 05:11] LABS: Baso % (Auto) 0.3 % (0.0-2.0); Hematocrit 32.3 % (39.0-51.0); Hemoglobin 10.7 gm/dL (13.0-17.0); Lymph # (Auto) 0.1 th/mm3 (1.0-4.8); Lymph % (Auto) 1.1 % (9.0-44.0); Mean Corpuscular Hemoglobin 29.8 pg (27.0-34.0); Mean Corpuscular Volume 90.2 fL (80.0-100.0); Mean Platelet Volume 7.9 fL (7.0-11.0); Mono # (Auto) 0.3 th/mm3 (0.0-0.9); Mono % (Auto) 2.4 % (0.0-8.0); Neut % (Auto) 96.2 % (16.0-70.0); Platelet Count 138 th/mm3 (150-450); Red Blood Count 3.58 mil/mm3 (4.50-5.90); Red Cell Distribution Width 19.5 % (11.6-17.2); White Blood Count 11.4 th/mm3 (4.0-11.0)
[2017-09-29 05:28] LABS: Anion Gap 10 meq/L (5-15); Blood Urea Nitrogen 32 mg/dL (7-18); Calcium 8.7 mg/dL (8.5-10.1); Carbon Dioxide 29.5 meq/L (21.0-32.0); Chloride 98 meq/L (98-107); Glomerular Filtration Rate Greater Than 89 mL/min (>89); Glucose,Random 114 mg/dL (74-106); Potassium 4.4 meq/L (3.5-5.1); Sodium 137 meq/L (136-145)
[2017-09-29] MEDS: Oral Hygiene Kit OROPHARYNG SCH ×4 (06:09→19:41)
[2017-09-29] MEDS: Chlorhexidine Gluconate 2% 1 Pack (2 Cloths) TOPICAL SCH (06:09)
[2017-09-29] MEDS: Artificial Tears Opth Drops 15 ML Bottle EACH EYE SCH ×3 (06:53→19:41)
--- NOTE | 2017-09-29 07:34 | P.PNCC ---
Subjective Subjective Remarks/Hospital Course: This is a 77-year-old Bulgarian male/Mandarin speaking only. Date of admission 08/21/2017. Date of consultation 08/23/2017. Past medical history is documented as hypertension, gout and diabetes mellitus. He is on no home medications. He does have remote history of tuberculosis 10 years ago. He quit tobacco use 20 years ago. He presented to [facility] on 08/21/2017 with a 3-4 days of intermittent pain in this region that acutely acutely worsened on 08/20 . They state the pain is in the right upper quadrant and radiates to the upper thorax and around his back. Hospital workup included a CT pulmonary angiogram which revealed bilateral emphysema. Multiple bilateral pulmonary nodules present with the largest in the right lung measuring 2.8 cm and the largest in the left lung measuring 2.6 cm. Severe compressive atelectasis in the right lower lobe. Moderate-sized pulmonary effusion. Pleural thickening in the anterior inferior hemothorax. Right paratracheal lymph node 15 mm. 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 No lytic bone lesions. Also noted significant coronary artery and aortic atherosclerotic calcifications. Patient was evaluated by hematology. Recommended lung biopsy when stable. She has become increasingly short of breath and was transferred from a hospital [facility] to [facility] at 70%. Patient became less responsive and we were consulted. Patient required intubation/central line placement is currently having a right pigtail catheter placed to remove fluid from right lung. 08/24: hypotensive this AM requiring levophed at 8 mcg/min. drained 600cc of serosanguinous fluid out of chest tube. responded successfully to straight-leg challenge. intubated, sedated. remains very critically ill. 08/25: Afebrile. Off all antihypertensives and vasopressin. Currently normal saline at 100 cc an hour. On propofol and fentanyl drips. 08/26: Afebrile. No tonsillar creatinine currently at 20 cc an hour. Remains on increased propofol drip at 40 mcg/kg/min secondary to severe agitation overnight and on attempted spontaneous breathing trials. Will try dexmedetomidine attempt to wean today. 08/27: Worsening lung infiltrates associated with hydration. Afebrile. Known diastolic dysfunction. He appears to be exquisitely sensitive to fluid balance. Presently converting to Precedex and will try spontaneous breathing trials. 08/28: Continued worsening bilateral lung infiltrates. IV fluid has been stopped yesterday, will add additional diuretics. Diffusion gradient worsened, unable to wean from ventilator. 08/29: Mild improvement in lung infiltrates after diuresis without harming renal function. Remains ventilator dependent. Biopsy yesterday, results pending. 08/30: Worsening gas exchange with deteriorating diffusion capacity and requirements for increased inspired oxygen concentration. This all despite 2 L diuresis. Await pathology results. 08/31: Lung infiltrates resolving with diuresis. Continues to behave like diastolic heart failure. Contraction alkalosis is developing will add a carbonic anhydrase inhibitor for a couple of days. T-max 100.8 but for the most part he has been afebrile. Lung mass does appear to be a malignancy. Agree with attempt to rebiopsy at some point. We will continue to diuresis until his kidneys squeak. At 7-10 days of antibiotics it may be best to stop treatment and reculture for fevers. I will defer to the pulmonary service. 09/01: remains intubated and sedated. continues to fail any weaning attempts. consulted palliative to assist in goals of care: may need tracheostomy for further aggressive care. 09/02: palliative meeting with family again today. no improvements. it has been greater than 10 days of full empiric antibiotics: will discontinue and re- culture for fever. 09/03: chest tube on water seal with minimal output. cxr unchanged. CT removed today on my eval. no other changes or improvements. unlikely to have favorable outcome. quite hypercarbic despite full vent support: will make changes to ventilation to assist with hypercarbic. 09/04: Remains sedated, orally intubated on mechanical ventilation. 09/05: Remains sedated, orally intubated on mechanical ventilation. Failed CPAP trials yesterday. 09/06: Sedated, arousable, orally intubated on mechanical ventilation. Failed CPAP trials yesterday. Family wishes to continue aggressive care and desire trach and PEG. 09/07: T-max 100.3. One bowel movement yesterday. Failed CPAP trials yesterday. OG tube plugged overnight and able to place new feeding tube at the present time. We will switch all medications to IV at the present time including amiodarone drip at 0.5 mg/min. Check digoxin level prior to resuming IV. 09/08: T-max 99.2. Currently afebrile. One bowel movement overnight. Plan for percutaneous tracheostomy today. GI consult for PEG placement. CT chest revealed small bilateral pleural effusions. Persistent right middle lobe mass which we will consult IR again for rebiopsy. Will ask pulmonary to see again 09/09: Remains on full vent support more critical today increasing oxygen requirement FiO2 at 65 of have increase PEEP to 10 to attempt wean oxygen. Air entry markedly diminished bilaterally. Chest x-ray shows bilateral prominent interstitial infiltrates. Fluid up by approximately 10 kg. I will discontinue half-normal saline. Lasix 40 mg IV 1 09/10: Patient remains critical showing agonal breathing on the ventilator. Bilateral coarse breath sounds. Chest x-ray shows bilateral patchy infiltrates improved left effusion after thoracentesis and removal of 1 L of fluid. However FiO2 requirement remains high at 65%. UO 1.5L in 24 hours. Lab work pending. IV steroids started for probable COPD exacerbation given history of smoking 09/11: Remains critical but slightly more stable. Breathing pattern has improved and oxygenation has improved after starting IV steroids for COPD exacerbation and thoracentesis on 09/09/2017. Currently FiO2 down to 50%, PEEP at 10. We will further wean. Sodium increased to 151 start quarter normal saline, increase Lasix. Family wished to proceed with full code. PEG today 09/12: Remains intubated sedated with propofol. Urine output 1.8 L. BUN/ creatinine slightly increased today 72/1.34. Will reduce Lasix dose also reduce Solu-Medrol. Vent dyssynchrony has improved but FiO2 remains high at 55% 09/13: Off all sedation for 24 hours. Apparently patient notes has had one family is at bedside asking questions. BUN/creatinine slightly improved 71/ 1.14 from 72/1.34. WBC count slightly improved to 20.7. FiO2 at 45% chest x- ray shows some interval improvement. Also Na improved to 147 09/14: Remains intubated off sedation. Slightly tachypneic on pressure support . Urine output approximately 1500 mL in 24 hours 09/15: Patient clearly more awake today seems to understand some of the commands. Concern about quadriparesis patient is not able to withdrawal to pain 4, even though it appears he does feel the pain. MRI of the C-spine ordered. Neurology consulted. Otherwise BUN/creatinine slightly improved 09/16: Patient remains quadriparetic, slight movement of the left upper extremity. MRI of the C-spine shows focal severe spinal canal stenosis at C4-5 , with increased signal within the body of the spinal cord at this level most likely representing some myelomalacia. Moderate diffuse broad-based bulging at C3-4 with some mild increased signal in the spinal cord at this level. Moderate spinal canal stenosis at C6-C7. Also there is evidence of tracheostomy site infection. Explained MRI findings to son and patient's using electronic pad hand. Discussed with Dr. Carvalho. Increase Solu-Medrol to 250 mg IV every 6 hours. Consult neurosurgery 09/17: Remains septic, remains quadriplegic. Slight movements of the left upper extremity noted. C. difficile positive p.o. vancomycin added by ID yesterday. Appreciate input from Dr. Victor. Patient hs severe upper cervical stenosis with myelopathy and resultant SCI/severe quadriplegia of the upper and lower extremities. Prognosis very poor per neurosurgery 09/18: Afebrile. Tube feeds are at goal. No change in neurological status. Left upper extremity movement only. 09/19: Resting comfortably in bed in no acute distress. Noted able to squeeze left hand in slightly squeeze right hand. Will move bilateral lower extremities slightly to command. Positive BM. 09/20: Status post C2 hemilaminectomy, C3 through [address] Victor yesterday. Tolerated procedure well. Restarting tube feeding today. Verbalizing words and does move left upper extremity spontaneously. 09/21: Afebrile. Neurological unchanged overnight. No bowel movement since 09/18. Tolerating tube feeds at goal. Discussed with care plan via supervisor coating yesterday and she expressed understanding. 09/22: Stable hemodynamics and acceptable gas exchange. Remains weak.Unable to wean from ventilator. 09/23: Remains effectively quadriplegic. Unable to wean from ventilator due to inadequate respiratory stamina. 09/24: Minimal movement nor response to voice or stimulation. No improvement from debilitated state over past several weeks. 09/25: Opens eyes but not to command. Tolerate CPAP trials for several hours now. 09/26: Opens eyes spontaneously. Does not tolerate CPAP and spontaneous breathing trials for long periods. Will need a long-term vent unit. 09/27: Tolerate spontaneous breathing trials for periods of several hours. Fatigues however and requires to be placed back on full ventilator support. Although he opens his eyes and appears to look and track he is severely debilitated and deteriorating. Despite aggressive nutritional support he continues to decline clinically. 09/28: Tolerating T piece trial for the first time today. He remains severely debilitated and there is been no change in the neurologic exam. SUBJECTIVE: 09/29: no changes. tolerating t-piece. no changes in neurologic exam. needs placement. acute medical problems have resolved. Objective Vital Signs / I&O: Vital Signs 09/28/17 08:00 09/28/17 08:10 09/28/17 09:00 Temperature 36.9 C Pulse Rate 78 80 Respiratory Rate 28 H 23 27 H Blood Pressure 118/59 L Pulse Oximetry 100 100 09/28/17 10:00 09/28/17 12:00 09/28/17 14:00 Temperature 36.8 C Pulse Rate 102 H 68 74 Respiratory Rate 25 H Blood Pressure 139/70 Pulse Oximetry 94 L 09/28/17 15:04 09/28/17 16:00 09/28/17 18:00 Temperature 36.9 C Pulse Rate 90 78 Respiratory Rate 25 H 44 H Blood Pressure 145/76 H Pulse Oximetry 96 09/28/17 20:00 09/28/17 20:23 09/28/17 22:00 Temperature 36.8 C Pulse Rate 94 H 69 Respiratory Rate 25 H Blood Pressure 157/83 H Pulse Oximetry 96 97 09/29/17 00:00 09/29/17 02:00 09/29/17 04:00 Temperature 36.8 C 36.1 C L Pulse Rate 81 66 79 Respiratory Rate 25 H 26 H Blood Pressure 162/86 H 134/71 Pulse Oximetry 97 98 09/29/17 06:00 09/29/17 06:21 Temperature Pulse Rate 96 H Respiratory Rate Blood Pressure Pulse Oximetry 96 Intake & Output 09/28/17 09/29/17 09/29/17 18:59 06:59 18:59 Intake Total 1194 / 1194 1307 / 1307 Output Total 1800 / 1800 2450 / 2450 Balance -606 / -606 -1143 / -1143 Weight 67.5 kg Intake: Oral 0 / 0 Tube Feeding 594 / 594 587 / 587 Tube Irrigant 120 / 120 Water Bolus Amount 600 / 600 600 / 600 Output: Urine 2250 / 2250 Stool 400 / 400 200 / 200 Urine Amount (Catheter) 1400 / 1400 Indwelling Urethral Catheter 1400 / 1400 Other: Date of Last Bowel Movement 09/28/17 09/29/17 Result Diagrams: 09/29/17 04:05 09/29/17 04:05 Objective Remarks: GENERAL: 77-year-old male currently on t-piece via trach. SKIN: Warm and dry. No rash HEAD: Atraumatic. Normocephalic. Eyes moderately sunken. EYES: Pupils equal and round about 3 mm bilaterally reactive. No conjunctival icterus. No injection or drainage. ENT: No nasal bleeding or discharge. Mucous membranes moist. NECK: Trachea midline. Trach site with minimal drainage. T piece in place. CARDIOVASCULAR: normal rate, regular rhythm. No JVD LUNGS: Coarse rhonchi appreciated bilaterally. Acceptable bilateral air movement. GASTROINTESTINAL: Abdomen soft, non-tender, nondistended. No guarding. MUSCULOSKELETAL: Extremities without significant peripheral edema. Well perfused. NEUROLOGICAL: Off all sedation for over 10 days. Minimal response or eye opening today. Able to extend left wrist/hand weakly. Some movement to stimulation on right lower extremity. Assessment and Plan - Assessment and Plan Plan: Assessment and Plan Neuro/Psych: Postoperative C2 hemilaminectomy, C3 through 5 lamina plasty secondary to cervical stenosis, spinal stenosis by Dr. Victor Acute toxic metabolic encephalopathy Quadriplegia Severe cervical spinal cord stenosis, with acute spinal cord injury MRI C-spine 09/15: There appears to be focal severe spinal canal stenosis at C4- 5. There is increased signal within the body of the spinal cord at this level most likely representing some myelomalacia. Moderate diffuse broad-based bulging at C3-4 with some mild increased signal in the spinal cord at this level. Moderate spinal canal stenosis at C6-C7 Bilateral facet arthritis at multiple levels. Extensive primary degenerative changes with disc degeneration and disc space narrowing throughout the entire cervical spine. Severe quadriplegia of the upper and lower extremities with some preserved residual sensory function. Neurosurgery Dr. Victor. Poor chance of neurological recovery for him Neurology Dr. Carvalho. Per his recommendations decrease to methylprednisolone succinate to 40 mg IV every 8 hours starting 09/20 with goal to rapidly taper off. Will decrease to 40 mg twice daily today 09/21. Previously on 250 mg every 6 hours started 09/16. will taper to 40mg once daily 09/29. Head CT 08/23: 2 questionable tiny focal hemorrhages. MRI of brain 08/26 chronic small vessel ischemic and atrophic changes CT brain 09/05 revealed bilateral maxillary sinusitis. No other acute finding EEG 09/03 revealed severe encephalopathy. No epileptiform activity Acetaminophen 650 mg by tube every 6 hours as needed fever Oxycodone 5 mg every 4 hours, decrease to prn. Morphine sulfate 2 mg IV every 4 hours as needed pain 8 -10. PT/OT needs to be OOB to stretcher chair daily. CV: Uncontrolled hypertension - improving. septic shock- resolved Atherosclerotic coronary artery disease Atrial fibrillation Elevated troponin downward trend Fluid overload Amiodarone Discontinued 09/07 secondary to bradycardia and pauses Continue metoprolol 25 mg p.o. q8h but increase to 50 mg twice daily Continue digoxin 0.125 mg daily.. 0.5 recheck level in a.m. 09/22. Will give 0.25 mg 1 at 1800 today (Home medication is NITRENDIPINE 10 mg by mouth daily) Currently off all vasopressors, normotensive Resp: Acute hypoxic hypercapnic respiratory failure COPD with exacerbation/Emphysema Trach site infection Bilateral pleural effusion/status post chest tube right-sided transudative in nature. Chest tube removed 09/04 Multiple bilateral pulmonary masses vs infiltrate, RML mass vs consolidation Pulmonary edema Ventilator bundle weaning iv methylprednisolone. continue inhaled budesonide 0.5/2 1 inhalation twice daily Albuterol/ipratropium aerosols every 4 hours with albuterol aerosols every 2 hours as needed dyspnea CT pulmonary angiogram revealed 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 Right middle lobe 2.7 x 2.2 x 7's. Spiculated. Left lingula is 3.4 x 3.20 cm. Underlying pronounced emphysematous type changes throughout lung larios. Right pleural effusion. CT thorax 09/08 revealed multiple areas of consolidation bilaterally. Prior granulomatous disease. Focal consolidation or mass in the right middle lobe that appears unchanged. Lung mass biopsied on August 28 -results - CHRONIC INFLAMMATORY AND REACTIVE FIBROBLASTIC TISSUE CONTAINING ENTRAPPED BENIGN EPITHELIUM reconsult IR 09/08 for repeat biopsy Followed by Dr. Hardy/pulmonology. Reconsulted 09/08, recommended repeat CT in 4 weeks. Hold off the IR guided biopsy time due to unstable respiratory status, neuro status s/p percutaneous tracheostomy 09/08 (Biga/Michael). Status post thoracentesis left side 09/09 with 1 L fluid removed. No evidence of infection. Tolerating T-piece 09/28. continue t-piece as tolerated. OOB to stretcher chair daily GI: Hypoalbuminemia C. difficile colitis Acute protein calorie malnutrition -severe s/p PEG 09/11. Tolerating tube feeds with Glucerna 1.5 at 55 cc an hour, free water flushes 300 cc every 6 hours Lansoprazole for GI prophylaxis Lactulose 30 cc twice daily for bowel regimen/hyperammonemia P.o. vancomycin 250 every 6 hours for C. difficile intestinal infection, to complete 09/30. : Urinary retention, possible urinary stricture Acute kidney injury Maintain Larson catheter. Monitor urine output, Accurate I's and O's significant difficulty due to obstruction which may be urethral stricture which prevented serial i/o. replaced Larson catheter. Avoid nephrotoxic drugs. Endo: Diabetes mellitus Hyperglycemia History of gout Sliding scale insulin with NovoLog high regimen to maintain euglycemia Currently on insulin detemir 10 units subcu twice daily Holding home medications of allopurinol 300 mg daily and colchicine 0.6 mg as needed Holding home medications of metformin 500 mg twice daily Heme: Leukocytosis Normocytic anemia Monitor CBC daily. Follow trends Coags within normal limits ID: Severe sepsis - resolved Trach site infection - resolved Healthcare associated pneumonia - resolved C. difficile colitis Appreciate ID input. off all abx except PO vanc to complete 09/30. Status post bronchoscopy 09/03 cultures negative Blood culture from 08/20/ 08/26 no growth to date Sputum 09/05 no growth Influenza a and B negative 09/07 Bronchial wash negative FEN: Hypernatremia - resolved Replace electrolytes as clinically indicated per ICU electrolyte protocol. Monitor CMP On free water 300 every 6, improved. MSK: Elevated BMI PT evaluate and treat Weight loss encouraged Access Peripheral IV. Discontinue arterial line placed 09/19 in OR on 09/20. Prophylaxis -GI -lansoprazole.. DVT -SCD/heparin subcutaneous 5000 units 3 times a day. No signs of bleeding on MRI brain Overall impression: This gentleman remains weak and debilitated, functionally quadriparetic. Long-term prognosis for a meaningful recovery is quite poor. The best we can probably hope for is a skilled facility. continue t-piece trials and now working towards placement.
[2017-09-29] MEDS: Metoprolol Tartrate 50 MG Tablet PO SCH ×3 (08:46→22:47)
[2017-09-29] MEDS: MethylPREDNISolone Sod Succinate Inj 40 MG/ML Vial IV.PUSH SCH (08:46)
[2017-09-29] MEDS: Insulin Detemir Inj 1,000 UNIT/10 ML Vial SQ SCH ×2 (08:48→21:32)
[2017-09-29] MEDS: Beneprotein Powder Packet G-TUBE SCH ×3 (08:48→17:00)
[2017-09-29] MEDS: Senna/Docusate Sodium 8.6/50 MG Tablet PO SCH ×2 (09:06→21:33)
--- NOTE | 2017-09-29 09:48 | P.PNNS ---
Subjective Interval history: 09/16: 77-year-old male admitted on August 21, 2017 with initial complaint of chest pain and right upper quadrant abdominal pain. His initial evaluation revealed multiple pulmonary lesions with pleural effusion. However cytology from thoracentesis and lung biopsy were negative for malignancy. He initially required a tracheostomy placement. He has been on ventilatory support, with sedation recently weaned over the past few days. There was noted within the past day or 2 that he has not been moving his extremities, and an MRI of the cervical spine was subsequently obtained on 09/15/2017. This has revealed severe cervical stenosis with significant abnormal signal intensity within the cord. Review of his records indicates the patient to be moving all extremities during the first week or so of his hospitalization, although it is difficult to determine the grade of his motor function, with the patient very ill and apparently generally weak upon his initial presentation. Physical therapy notes reviewed, however therapy has not been able to consistently work with the patient due to his pulmonary problems and subsequent intubation and sedation. 06/18: Pt awake. Not verbalizing. Not following commands consistently tries to stick out tongue to command. 09/18: The patient is awake in bed. He is trached and on CPAP/PSV settings. He does look at this practitioner and tracks. He did not follow any commands. There was a trace of left foot movement to noxious stimulation. He did have facial grimacing also to noxious stimulation. Nursing reports that he did stick out his tongue after she demonstrated it. She also says that the patient squeezed with the left hand once but did not repeat it. 09/19: The patient went for a C3-5 laminoplasty and post-operatively was transferred back to the [facility]SC unit. 09/20: Patient intubated 09/22: Intubated. Off sedation for examination 09/24: When seen this morning the patient is awake. He has no sedation infusing. He is trached and on CPAP. He is tachypneic and Nursing reports that he is having a harder time handling it today. She reported that he was moving the left upper spontaneously earlier. During evaluation he did not response to any stimuli but subsequently did move the left hand fingers slightly. Dr Srivastava with Palliative Care is to meet with the patient's son this morning. 09/25: Spoke with Palliative Care this morning who said family has made the patient essentially a no code. He believes they are leaning toward withdrawal but are waiting for a family member to travel here. The patient is awake and alert when seen. He is seen moving the left hand spontaneously after stimulation but has no response to noxious stimulation with the other extremities. 09/27: This morning the patient is awake and having an IV line placed by the Vascular Access team. He was seen spontaneously moving the left upper extremity prior to being seen. He nods his head slightly when told "hello" in [place]ian. He is still trached and on CPAP/PSV settings. He did not have any response to noxious stimulation of the right upper or either lower extremity. A review of Palliative Care's note yesterday indicates the family is still waiting for a family member to arrive from [place] before considering comfort measures. 09/28: Today the patient is awake and alert. He is still trached but on a T- piece. Nursing does report that he has been on the T-piece overnight. She reports that he is tachypneic but maintaining his oxygen saturation. When greeted in [place]ian he reached his left hand up off the bed for this practitioner 's hand. He did have slight movement of the right hand to command. There was no response to the lower extremities to any stimulation. 09/29: The patient is awake when seen. He is trached and still on the T-piece but he is tachypneic. He is seen moving the left upper extremity spontaneously. He had no response to noxious stimulation with the other extremities. <Roc Castillo E - Last Filed: 09/29/17 09:58> Physical Exam Vital signs: Vital Signs 09/28/17 10:00 09/28/17 12:00 09/28/17 14:00 Temperature 98.2 F Pulse Rate 102 H 68 74 Respiratory Rate 25 H Blood Pressure 139/70 Pulse Oximetry 94 L 09/28/17 15:04 09/28/17 16:00 09/28/17 18:00 Temperature 98.4 F Pulse Rate 90 78 Respiratory Rate 25 H 44 H Blood Pressure 145/76 H Pulse Oximetry 96 09/28/17 20:00 09/28/17 20:23 09/28/17 22:00 Temperature 98.2 F Pulse Rate 94 H 69 Respiratory Rate 25 H Blood Pressure 157/83 H Pulse Oximetry 96 97 09/29/17 00:00 09/29/17 02:00 09/29/17 04:00 Temperature 98.2 F 97.0 F L Pulse Rate 81 66 79 Respiratory Rate 25 H 26 H Blood Pressure 162/86 H 134/71 Pulse Oximetry 97 98 09/29/17 06:00 09/29/17 06:21 09/29/17 08:05 Temperature Pulse Rate 96 H 92 H Respiratory Rate 23 Blood Pressure Pulse Oximetry 96 09/29/17 08:10 Temperature Pulse Rate Respiratory Rate Blood Pressure Pulse Oximetry 96 Intake & Output 09/28/17 09/29/17 09/29/17 18:59 06:59 18:59 Intake Total 1194 / 1194 1307 / 1307 Output Total 1800 / 1800 2450 / 2450 Balance -606 / -606 -1143 / -1143 Weight 67.5 kg Intake: Oral 0 / 0 Tube Feeding 594 / 594 587 / 587 Tube Irrigant 120 / 120 Water Bolus Amount 600 / 600 600 / 600 Output: Urine 2250 / 2250 Stool 400 / 400 200 / 200 Urine Amount (Catheter) 1400 / 1400 Indwelling Urethral Catheter 1400 / 1400 Other: Date of Last Bowel Movement 09/28/17 09/29/17 Narrative: GENERAL: Awake & alert. Trached and on T-piece. He is tachypneic. HEENT: Normocephalic, atraumatic. Pupils equal 2mm reactive. MUSCULOSKELETAL: No evident clubbing or deformity. Dependent edema to all extremities. Spontaneously moving left upper. NEUROLOGICAL: Awake. Trached, nonverbal. Moving LUE spontaneously. No motor response to local noxious stimulation of RUE & BLE, patient did have facial grimacing. - Urinary Catheter Management Indwelling Urethral Catheter Cath placed during this visit: yes Reason for continuing: Chronic Urinary Retention Insertion date: 08/20/17 Insertion time: 17:00 <Roc Castillo E - Last Filed: 09/29/17 09:58> Vital signs: Vital Signs 11/16/17 22:30 11/17/17 00:00 11/17/17 01:38 Temperature 98.4 F Pulse Rate 101 H 105 H Respiratory Rate 23 20 Blood Pressure 60/35 L 123/72 Pulse Oximetry 99 11/17/17 04:00 11/17/17 04:22 11/17/17 07:00 Temperature 98.0 F Pulse Rate 103 H Respiratory Rate 16 Blood Pressure 121/74 Pulse Oximetry 99 97 11/17/17 07:19 11/17/17 08:00 11/17/17 08:30 Temperature 98.4 F Pulse Rate 91 H 101 H 121 H Respiratory Rate 27 H 22 22 Blood Pressure 145/87 H 160/109 H Pulse Oximetry 100 98 97 11/17/17 10:00 11/17/17 10:45 11/17/17 11:00 Temperature Pulse Rate 120 H 119 H 122 H Respiratory Rate 20 24 20 Blood Pressure 166/110 H 159/77 H 158/96 H Pulse Oximetry 97 97 97 11/17/17 12:00 11/17/17 12:30 11/17/17 13:00 Temperature 98.6 F Pulse Rate 113 H 137 H 130 H Respiratory Rate 22 24 22 Blood Pressure 86/59 L 80/50 L 140/77 Pulse Oximetry 98 99 97 11/17/17 14:00 11/17/17 14:30 11/17/17 15:00 Temperature Pulse Rate 115 H 114 H 90 Respiratory Rate 22 25 H 20 Blood Pressure 113/70 128/82 110/65 Pulse Oximetry 97 98 99 11/17/17 15:15 11/17/17 15:30 11/17/17 15:45 Temperature Pulse Rate 91 H 89 86 Respiratory Rate 20 13 26 H Blood Pressure 111/67 118/72 117/69 Pulse Oximetry 99 99 99 11/17/17 16:00 11/17/17 16:30 11/17/17 19:00 Temperature Pulse Rate 116 H 108 H Respiratory Rate 22 20 Blood Pressure 156/94 H 142/84 H Pulse Oximetry 97 97 99 11/17/17 20:16 Temperature Pulse Rate 85 Respiratory Rate 22 Blood Pressure Pulse Oximetry 97 Intake & Output 11/17/17 11/17/17 11/18/17 06:59 18:59 06:59 Intake Total 1020 / 1020 1860 / 1860 Output Total 400 / 400 2450 / 2450 Balance 620 / 620 -590 / -590 Weight 75.4 kg Intake: IV 200 / 200 600 / 600 Zosyn 4.5 GM Premix 4.5 gm In 200 / 200 100 / 100 100 ml @ 200 mls/hr IV.SIG Q8HR [facility] Rx#:[id number] Tube Feeding 420 / 420 660 / 660 Tube Irrigant 100 / 100 Water Bolus Amount 300 / 300 600 / 600 Anesthesia Amount 0 / 0 Output: Urine 0 / 0 Stool 0 / 0 500 / 500 Urine/Stool Mix 0 / 0 Urine Amount (Catheter) 400 / 400 1949 Indwelling Urethral Catheter 400 / 400 1949 Other: Date of Last Bowel Movement 11/15/17 11/12/17 # Bowel Movements 0 - Urinary Catheter Management Indwelling Urethral Catheter Cath placed during this visit: no <Anuj Victor - Last Filed: 11/17/17 22:03> Assessment and Plan - Plan Impression: 1. 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 2. Sepsis 3. Respiratory failure, tracheostomy in place. Now on CPAP 09/23: "Remains with flaccid quadriplegia-no definite changes compared to preoperative." - Dr Victor at 1823 Patient awake & alert. Spontaneous LUE movement. No RUE or BLE response to local noxious stimulation other than facial grimacing. Past 24 hrs: Afebrile. Tachycardia yesterday morning. Tachypnea. Elevated SBP at midnight. Reviewed labs for today. Resolution of leukocystosis & improvement of haemoglobin level from but development of thrombocytopenia. Sodium 137. eGFR >89. MRI cervical spine conclusion: "1. Status post laminectomy at the C3-C5 levels. Surgical hardware seen at the posterior elements at these levels. 2. Moderate stenosis at the C4-C5 level secondary to disc bulge and central disc protrusion. There is abnormal signal again seen within the cord. The cord appears small this region. This likely secondary to myelomalacia. 3. Mild to moderate narrowing of the thecal sac at the C5-C6 and C6-C7 level. 4. Neural foraminal narrowing throughout the cervical spine as described above. " - Ino Cee MD 09/25/2017 5:55 PM POD #10 () s/p: C3-5 laminoplasty Plan: Primary & critical care management per [facility]. Palliative Care following. Meade J cervical collar at all times. <Roc Castillo - Last Filed: 09/29/17 09:58> - Assessment (1) Cervical myelopathy Code(s): G95.9 - Disease of spinal cord, unspecified Status: Acute - Attending Attestation The exam, history, and the medical decision-making described in the above note were completed with the assistance of the mid-level provider. I reviewed and agree with the findings presented. I attest that I had a [id number] encounter with the patient on the same day, and personally performed and documented my assessment and findings in the medical record. <Anuj Victor - Last Filed: 11/17/17 22:03>
[2017-09-29] MEDS: Chlorhexidine 0.12% Oral Kit 15 ML UDC SWISH-SPIT SCH ×2 (14:32→21:32)
[2017-09-29] MEDS: Morphine Inj 4 MG/ML Vial IV.PUSH PRN ×2 (17:56→19:43)
[2017-09-29] MEDS: ALPRAZolam 0.25 MG Tablet PO PRN (22:50)
[2017-09-30] MEDS: Artificial Tears Opth Drops 15 ML Bottle EACH EYE SCH ×4 (00:27→21:59)
[2017-09-30] MEDS: Oral Hygiene Kit OROPHARYNG SCH ×4 (00:27→17:07)
[2017-09-30] MEDS: Insulin NovoLOG Aspart Correctional Sugar Inj SQ SCH ×4 (03:15→21:56)
[2017-09-30] MEDS: Chlorhexidine Gluconate 2% 1 Pack (2 Cloths) TOPICAL SCH (03:39)
[2017-09-30 06:09] LABS: Hematocrit 36.6 % (39.0-51.0); Hemoglobin 11.3 gm/dL (13.0-17.0); Mean Corpuscular Hemoglobin 29.7 pg (27.0-34.0); Mean Corpuscular Volume 96.1 fL (80.0-100.0); Mean Platelet Volume 8.1 fL (7.0-11.0); Platelet Count 109 th/mm3 (150-450); Red Blood Count 3.81 mil/mm3 (4.50-5.90); Red Cell Distribution Width 20.5 % (11.6-17.2); White Blood Count 10.7 th/mm3 (4.0-11.0)
[2017-09-30 06:13] LABS: Mean Corpuscular HGB Conc 30.9 % (32.0-36.0)
[2017-09-30 06:22] LABS: Anion Gap 10 meq/L (5-15); Blood Urea Nitrogen 47 mg/dL (7-18); Calcium 8.4 mg/dL (8.5-10.1); Carbon Dioxide 24.9 meq/L (21.0-32.0); Chloride 104 meq/L (98-107); Glomerular Filtration Rate Greater Than 89 mL/min (>89); Glucose,Random 111 mg/dL (74-106); Potassium 3.8 meq/L (3.5-5.1); Sodium 139 meq/L (136-145)
[2017-09-30] MEDS: MethylPREDNISolone Sod Succinate Inj 40 MG/ML Vial IV.PUSH SCH (08:04)
[2017-09-30] MEDS: Metoprolol Tartrate 50 MG Tablet PO SCH ×2 (08:05→21:57)
[2017-09-30] MEDS: Insulin Detemir Inj 1,000 UNIT/10 ML Vial SQ SCH ×2 (08:05→21:57)
[2017-09-30] MEDS: Beneprotein Powder Packet G-TUBE SCH ×3 (08:54→17:07)
[2017-09-30] MEDS: Senna/Docusate Sodium 8.6/50 MG Tablet PO SCH ×2 (08:54→21:58)
--- NOTE | 2017-09-30 09:14 | P.PNCC ---
Subjective Subjective Remarks/Hospital Course: This is a 77-year-old Mauritian male/Mandarin speaking only. Date of admission 08/21/2017. Date of consultation 08/23/2017. Past medical history is documented as hypertension, gout and diabetes mellitus. He is on no home medications. He does have remote history of tuberculosis 10 years ago. He quit tobacco use 20 years ago. He presented to [facility] on 08/21/2017 with a 3-4 days of intermittent pain in this region that acutely acutely worsened on 08/20 . They state the pain is in the right upper quadrant and radiates to the upper thorax and around his back. Hospital workup included a CT pulmonary angiogram which revealed bilateral emphysema. Multiple bilateral pulmonary nodules present with the largest in the right lung measuring 2.8 cm and the largest in the left lung measuring 2.6 cm. Severe compressive atelectasis in the right lower lobe. Moderate-sized pulmonary effusion. Pleural thickening in the anterior inferior hemothorax. Right paratracheal lymph node 15 mm. 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 No lytic bone lesions. Also noted significant coronary artery and aortic atherosclerotic calcifications. Patient was evaluated by hematology. Recommended lung biopsy when stable. She has become increasingly short of breath and was transferred from a [facility] [place][note 3] to [facility] at 70%. Patient became less responsive and we were consulted. Patient required intubation/central line placement is currently having a right pigtail catheter placed to remove fluid from right lung. 08/24: hypotensive this AM requiring levophed at 8 mcg/min. drained 600cc of serosanguinous fluid out of chest tube. responded successfully to straight-leg challenge. intubated, sedated. remains very critically ill. 08/25: Afebrile. Off all antihypertensives and vasopressin. Currently normal saline at 100 cc an hour. On propofol and fentanyl drips. 08/26: Afebrile. No tonsillar creatinine currently at 20 cc an hour. Remains on increased propofol drip at 40 mcg/kg/min secondary to severe agitation overnight and on attempted spontaneous breathing trials. Will try dexmedetomidine attempt to wean today. 08/27: Worsening lung infiltrates associated with hydration. Afebrile. Known diastolic dysfunction. He appears to be exquisitely sensitive to fluid balance. Presently converting to Precedex and will try spontaneous breathing trials. 08/28: Continued worsening bilateral lung infiltrates. IV fluid has been stopped yesterday, will add additional diuretics. Diffusion gradient worsened, unable to wean from ventilator. 08/29: Mild improvement in lung infiltrates after diuresis without harming renal function. Remains ventilator dependent. Biopsy yesterday, results pending. 08/30: Worsening gas exchange with deteriorating diffusion capacity and requirements for increased inspired oxygen concentration. This all despite 2 L diuresis. Await pathology results. 08/31: Lung infiltrates resolving with diuresis. Continues to behave like diastolic heart failure. Contraction alkalosis is developing will add a carbonic anhydrase inhibitor for a couple of days. T-max 100.8 but for the most part he has been afebrile. Lung mass does appear to be a malignancy. Agree with attempt to rebiopsy at some point. We will continue to diuresis until his kidneys squeak. At 7-10 days of antibiotics it may be best to stop treatment and reculture for fevers. I will defer to the pulmonary service. 09/01: remains intubated and sedated. continues to fail any weaning attempts. consulted palliative to assist in goals of care: may need tracheostomy for further aggressive care. 09/02: palliative meeting with family again today. no improvements. it has been greater than 10 days of full empiric antibiotics: will discontinue and re- culture for fever. 09/03: chest tube on water seal with minimal output. cxr unchanged. CT removed today on my eval. no other changes or improvements. unlikely to have favorable outcome. quite hypercarbic despite full vent support: will make changes to ventilation to assist with hypercarbic. 09/04: Remains sedated, orally intubated on mechanical ventilation. 09/05: Remains sedated, orally intubated on mechanical ventilation. Failed CPAP trials yesterday. 09/06: Sedated, arousable, orally intubated on mechanical ventilation. Failed CPAP trials yesterday. Family wishes to continue aggressive care and desire trach and PEG. 09/07: T-max 100.3. One bowel movement yesterday. Failed CPAP trials yesterday. OG tube plugged overnight and able to place new feeding tube at the present time. We will switch all medications to IV at the present time including amiodarone drip at 0.5 mg/min. Check digoxin level prior to resuming IV. 09/08: T-max 99.2. Currently afebrile. One bowel movement overnight. Plan for percutaneous tracheostomy today. GI consult for PEG placement. CT chest revealed small bilateral pleural effusions. Persistent right middle lobe mass which we will consult IR again for rebiopsy. Will ask pulmonary to see again 09/09: Remains on full vent support more critical today increasing oxygen requirement FiO2 at 65 of have increase PEEP to 10 to attempt wean oxygen. Air entry markedly diminished bilaterally. Chest x-ray shows bilateral prominent interstitial infiltrates. Fluid up by approximately 10 kg. I will discontinue half-normal saline. Lasix 40 mg IV 1 09/10: Patient remains critical showing agonal breathing on the ventilator. Bilateral coarse breath sounds. Chest x-ray shows bilateral patchy infiltrates improved left effusion after thoracentesis and removal of 1 L of fluid. However FiO2 requirement remains high at 65%. UO 1.5L in 24 hours. Lab work pending. IV steroids started for probable COPD exacerbation given history of smoking 09/11: Remains critical but slightly more stable. Breathing pattern has improved and oxygenation has improved after starting IV steroids for COPD exacerbation and thoracentesis on 09/09/2017. Currently FiO2 down to 50%, PEEP at 10. We will further wean. Sodium increased to 151 start quarter normal saline, increase Lasix. Family wished to proceed with full code. PEG today 09/12: Remains intubated sedated with propofol. Urine output 1.8 L. BUN/ creatinine slightly increased today 72/1.34. Will reduce Lasix dose also reduce Solu-Medrol. Vent dyssynchrony has improved but FiO2 remains high at 55% 09/13: Off all sedation for 24 hours. Apparently patient notes has had one family is at bedside asking questions. BUN/creatinine slightly improved 71/ 1.14 from 72/1.34. WBC count slightly improved to 20.7. FiO2 at 45% chest x- ray shows some interval improvement. Also Na improved to 147 09/14: Remains intubated off sedation. Slightly tachypneic on pressure support . Urine output approximately 1500 mL in 24 hours 09/15: Patient clearly more awake today seems to understand some of the commands. Concern about quadriparesis patient is not able to withdrawal to pain 4, even though it appears he does feel the pain. MRI of the C-spine ordered. Neurology consulted. Otherwise BUN/creatinine slightly improved 09/16: Patient remains quadriparetic, slight movement of the left upper extremity. MRI of the C-spine shows focal severe spinal canal stenosis at C4-5 , with increased signal within the body of the spinal cord at this level most likely representing some myelomalacia. Moderate diffuse broad-based bulging at C3-4 with some mild increased signal in the spinal cord at this level. Moderate spinal canal stenosis at C6-C7. Also there is evidence of tracheostomy site infection. Explained MRI findings to son and patient's using electronic banking specialist. Discussed with Dr. Carvalho. Increase Solu-Medrol to 250 mg IV every 6 hours. Consult neurosurgery 09/17: Remains septic, remains quadriplegic. Slight movements of the left upper extremity noted. C. difficile positive p.o. vancomycin added by ID yesterday. Appreciate input from Dr. Victor. Patient hs severe upper cervical stenosis with myelopathy and resultant SCI/severe quadriplegia of the upper and lower extremities. Prognosis very poor per neurosurgery 09/18: Afebrile. Tube feeds are at goal. No change in neurological status. Left upper extremity movement only. 09/19: Resting comfortably in bed in no acute distress. Noted able to squeeze left hand in slightly squeeze right hand. Will move bilateral lower extremities slightly to command. Positive BM. 09/20: Status post C2 hemilaminectomy, C3 through [address] Victor yesterday. Tolerated procedure well. Restarting tube feeding today. Verbalizing words and does move left upper extremity spontaneously. 09/21: Afebrile. Neurological unchanged overnight. No bowel movement since 09/18. Tolerating tube feeds at goal. Discussed with care plan via sign language interpreter yesterday and she expressed understanding. 09/22: Stable hemodynamics and acceptable gas exchange. Remains weak.Unable to wean from ventilator. 09/23: Remains effectively quadriplegic. Unable to wean from ventilator due to inadequate respiratory stamina. 09/24: Minimal movement nor response to voice or stimulation. No improvement from debilitated state over past several weeks. 09/25: Opens eyes but not to command. Tolerate CPAP trials for several hours now. 09/26: Opens eyes spontaneously. Does not tolerate CPAP and spontaneous breathing trials for long periods. Will need a long-term vent unit. 09/27: Tolerate spontaneous breathing trials for periods of several hours. Fatigues however and requires to be placed back on full ventilator support. Although he opens his eyes and appears to look and track he is severely debilitated and deteriorating. Despite aggressive nutritional support he continues to decline clinically. 09/28: Tolerating T piece trial for the first time today. He remains severely debilitated and there is been no change in the neurologic exam. 09/29: no changes. tolerating t-piece. no changes in neurologic exam. needs placement. acute medical problems have resolved. SUBJECTIVE: 09/30: Remains on T-piece. Breathing comfortably, neuro exam remains unchanged. No acute events reported overnight Objective Vital Signs / I&O: Vital Signs 09/29/17 10:00 09/29/17 12:00 09/29/17 14:00 Temperature 97.8 F Pulse Rate 76 73 82 Respiratory Rate 23 Blood Pressure 132/75 Pulse Oximetry 96 09/29/17 16:00 09/29/17 18:00 09/29/17 19:46 Temperature 98.7 F Pulse Rate 92 H 96 H 100 H Respiratory Rate 25 H 22 Blood Pressure 141/67 H Pulse Oximetry 97 96 09/29/17 20:00 09/29/17 22:00 09/29/17 23:56 Temperature 98.1 F Pulse Rate 92 H 116 H Respiratory Rate 18 Blood Pressure 96/55 L Pulse Oximetry 97 100 09/30/17 00:00 09/30/17 02:00 09/30/17 03:21 Temperature 98.2 F Pulse Rate 72 80 Respiratory Rate 18 Blood Pressure 112/64 Pulse Oximetry 100 99 09/30/17 04:00 09/30/17 06:00 09/30/17 07:51 Temperature 98 F Pulse Rate 82 84 97 H Respiratory Rate 26 H 23 Blood Pressure 111/58 L Pulse Oximetry 98 09/30/17 07:52 09/30/17 08:00 Temperature 97.2 F L Pulse Rate 94 H Respiratory Rate 22 Blood Pressure 111/58 L Pulse Oximetry 96 100 Intake & Output 09/29/17 09/30/17 09/30/17 18:59 06:59 18:59 Intake Total 1113 / 1113 1298 / 1298 Output Total 2049 950 / 950 Balance -937 / -937 348 / 348 Weight 66.3 kg Intake: Oral 0 / 0 Tube Feeding 573 / 573 698 / 698 Tube Irrigant 60 / 60 Water Bolus Amount 480 / 480 600 / 600 Output: Urine 2049 / 2049 950 / 950 Stool 0 / 0 Other: Date of Last Bowel Movement 09/29/17 09/29/17 09/29/17 Result Diagrams: 09/30/17 05:00 09/30/17 05:00 Objective Remarks: GENERAL: 77-year-old male currently on t-piece via trach. SKIN: Warm and dry. No rash HEAD: Atraumatic. Normocephalic. Eyes moderately sunken. EYES: Pupils equal and round about 3 mm bilaterally reactive. No conjunctival icterus. No injection or drainage. ENT: No nasal bleeding or discharge. Mucous membranes moist. NECK: Trachea midline. Trach site with minimal drainage. T piece in place. CARDIOVASCULAR: normal rate, regular rhythm. No JVD LUNGS: Coarse rhonchi appreciated bilaterally. Acceptable bilateral air movement. GASTROINTESTINAL: Abdomen soft, non-tender, nondistended. No guarding. MUSCULOSKELETAL: Extremities without significant peripheral edema. Well perfused. NEUROLOGICAL: Off all sedation for over 10 days. I said spontaneously open. Able to extend left wrist/hand weakly. Some movement to stimulation on right lower extremity. Assessment and Plan - Assessment and Plan Plan: Assessment and Plan Neuro/Psych: Postoperative C2 hemilaminectomy, C3 through 5 lamina plasty secondary to cervical stenosis, spinal stenosis by Dr. Victor Quadriplegia Severe cervical spinal cord stenosis, with acute spinal cord injury Toxic metabolic encephalopathy MRI C-spine 09/15: Focal severe spinal canal stenosis at C4-5. There is increased signal within the body of the spinal cord at this level most likely representing some myelomalacia. Moderate diffuse broad-based bulging at C3-4 with some mild increased signal in the spinal cord at this level. Moderate spinal canal stenosis at C6-C7 Bilateral facet arthritis at multiple levels. Extensive degenerative changes with disc degeneration and disc space narrowing throughout the entire C spine. Severe quadriplegia of the upper and lower extremities with some preserved residual sensory function. Neurosurgery Dr. Victor. Poor chance of neurological recovery for him Neurology Dr. Carvalho. Per his recommendations was placed on high dose solumedrol , 250 mg every 6 hours started 09/16 decreased to methylprednisolone succinate to 40 mg IV every 8 hours starting 09/20 On 40 mg twice daily 7/8. 40mg once daily from 09/29. Will discuss with Dr. Carvalho prior to stopping Head CT 08/23: 2 questionable tiny focal hemorrhages. MRI of brain 08/26 chronic small vessel ischemic and atrophic changes CT brain 09/05 revealed bilateral maxillary sinusitis. No other acute finding EEG 09/03 revealed severe encephalopathy. No epileptiform activity Acetaminophen 650 mg by tube every 6 hours as needed fever Oxycodone 5 mg every 4 hours, decrease to prn. Morphine sulfate 2 mg IV every 4 hours as needed pain 8 -10. PT/OT, needs to be OOB to stretcher chair daily. CV: Uncontrolled hypertension - improved. septic shock- resolved Atherosclerotic coronary artery disease Atrial fibrillation Elevated troponin downward trend Fluid overload Amiodarone Discontinued 09/07 secondary to bradycardia and pauses Continue metoprolol 50 mg twice daily Continue digoxin 0.125 mg daily. 0.5 recheck level in a.m. 09/22. (Home medication is NITRENDIPINE 10 mg by mouth daily) Currently off all vasopressors, normotensive Resp: Acute, now chronic hypoxic hypercapnic respiratory failure COPD with exacerbation/Emphysema Trach site infection Bilateral pleural effusion/status post chest tube right-sided transudative in nature. Chest tube removed 09/04 Multiple bilateral pulmonary masses vs infiltrate, RML mass vs consolidation Pulmonary edema Ventilator bundle weaning iv methylprednisolone. continue inhaled budesonide 0.5/2 1 inhalation twice daily Albuterol/ipratropium aerosols every 4 hours with albuterol aerosols every 2 hours as needed dyspnea CT pulmonary angiogram revealed 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 Right middle lobe 2.7 x 2.2 x 7's. Spiculated. Left lingula is 3.4 x 3.20 cm. Underlying pronounced emphysematous type changes throughout lung larios. Right pleural effusion. CT thorax 09/08 revealed multiple areas of consolidation bilaterally. Prior granulomatous disease. Focal consolidation or mass in the right middle lobe that appears unchanged. Lung mass biopsied on August 28 -results - CHRONIC INFLAMMATORY AND REACTIVE FIBROBLASTIC TISSUE CONTAINING ENTRAPPED BENIGN EPITHELIUM reconsult IR 09/08 for repeat biopsy Followed by Dr. Hardy/pulmonology. Reconsulted 09/08, recommended repeat CT in 4 weeks. Hold off the IR guided biopsy time due to unstable respiratory status, poor neuro status s/p percutaneous tracheostomy 09/08 ([place] Status post thoracentesis left side 09/09 with 1 L fluid removed. No evidence of infection. Tolerating T-piece 09/28. continue t-piece as tolerated. OOB to stretcher chair daily GI: Hypoalbuminemia C. difficile colitis Acute protein calorie malnutrition -severe s/p PEG 09/11. Tolerating tube feeds with Glucerna 1.5 at 55 cc an hour, free water flushes 300 cc every 6 hours Lansoprazole for GI prophylaxis Lactulose 30 cc twice daily for bowel regimen/hyperammonemia P.o. vancomycin 250 every 6 hours for C. difficile intestinal infection, to complete 09/30. : Urinary retention, possible urinary stricture Acute kidney injury Maintain Larson catheter. Monitor urine output, Accurate I's and O's significant difficulty due to obstruction which may be urethral stricture which prevented serial i/o. replaced Larson catheter. Avoid nephrotoxic drugs. Endo: Diabetes mellitus Hyperglycemia History of gout Sliding scale insulin with NovoLog high regimen to maintain euglycemia Currently on insulin detemir 10 units subcu twice daily Holding home medications of allopurinol 300 mg daily and colchicine 0.6 mg as needed Holding home medications of metformin 500 mg twice daily Heme: Leukocytosis Normocytic anemia Monitor CBC daily. Follow trends Coags within normal limits ID: Severe sepsis - resolved Trach site infection - resolved Healthcare associated pneumonia - resolved C. difficile colitis Appreciate ID input. off all abx except PO vanc to complete 09/30. Status post bronchoscopy 09/03 cultures negative Blood culture from 08/20/ 08/26 no growth to date Sputum 09/05 no growth Influenza a and B negative 09/07 Bronchial wash negative FEN: Hypernatremia - resolved Replace electrolytes as clinically indicated per ICU electrolyte protocol. Monitor CMP On free water 300 every 6, improved. MSK: PT evaluate and treat Access Peripheral IV. Discontinue arterial line placed 09/19 in OR on 09/20. Prophylaxis -GI -lansoprazole. DVT -SCD/heparin subcutaneous 5000 units 3 times a day. No signs of bleeding on MRI brain Overall impression: This gentleman remains weak and debilitated, functionally quadriparetic. Long-term prognosis for a meaningful recovery is quite poor. The best we can probably hope for is a skilled facility. continue t-piece trials and now working towards placement. Hospitalist to assume care in am. Pulmonary following Code Status: Full
--- NOTE | 2017-09-30 10:28 | P.PNNS ---
Subjective Interval history: 09/16: 77-year-old male admitted on August 21, 2017 with initial complaint of chest pain and right upper quadrant abdominal pain. His initial evaluation revealed multiple pulmonary lesions with pleural effusion. However cytology from thoracentesis and lung biopsy were negative for malignancy. He initially required a tracheostomy placement. He has been on ventilatory support, with sedation recently weaned over the past few days. There was noted within the past day or 2 that he has not been moving his extremities, and an MRI of the cervical spine was subsequently obtained on 09/15/2017. This has revealed severe cervical stenosis with significant abnormal signal intensity within the cord. Review of his records indicates the patient to be moving all extremities during the first week or so of his hospitalization, although it is difficult to determine the grade of his motor function, with the patient very ill and apparently generally weak upon his initial presentation. Physical therapy notes reviewed, however therapy has not been able to consistently work with the patient due to his pulmonary problems and subsequent intubation and sedation. 06/18: Pt awake. Not verbalizing. Not following commands consistently tries to stick out tongue to command. 09/18: The patient is awake in bed. He is trached and on CPAP/PSV settings. He does look at this practitioner and tracks. He did not follow any commands. There was a trace of left foot movement to noxious stimulation. He did have facial grimacing also to noxious stimulation. Nursing reports that he did stick out his tongue after she demonstrated it. She also says that the patient squeezed with the left hand once but did not repeat it. 09/19: The patient went for a C3-5 laminoplasty and post-operatively was transferred back to the ISC unit. 09/20: Patient intubated 09/22: Intubated. Off sedation for examination 09/24: When seen this morning the patient is awake. He has no sedation infusing. He is trached and on CPAP. He is tachypneic and Nursing reports that he is having a harder time handling it today. She reported that he was moving the left upper spontaneously earlier. During evaluation he did not response to any stimuli but subsequently did move the left hand fingers slightly. Dr Srivastava with Palliative Care is to meet with the patient's son this morning. 09/25: Spoke with Palliative Care this morning who said family has made the patient essentially a no code. He believes they are leaning toward withdrawal but are waiting for a family member to travel here. The patient is awake and alert when seen. He is seen moving the left hand spontaneously after stimulation but has no response to noxious stimulation with the other extremities. 09/27: This morning the patient is awake and having an IV line placed by the Vascular Access team. He was seen spontaneously moving the left upper extremity prior to being seen. He nods his head slightly when told "hello" in [place]ian. He is still trached and on CPAP/PSV settings. He did not have any response to noxious stimulation of the right upper or either lower extremity. A review of Palliative Care's note yesterday indicates the family is still waiting for a family member to arrive from [place] before considering comfort measures. 09/28: Today the patient is awake and alert. He is still trached but on a T- piece. Nursing does report that he has been on the T-piece overnight. She reports that he is tachypneic but maintaining his oxygen saturation. When greeted in [place]ian he reached his left hand up off the bed for this practitioner 's hand. He did have slight movement of the right hand to command. There was no response to the lower extremities to any stimulation. 09/29: The patient is awake when seen. He is trached and still on the T-piece but he is tachypneic. He is seen moving the left upper extremity spontaneously. He had no response to noxious stimulation with the other extremities. 09/30: When seen the patient is asleep but he did open his eyes to voice. He remains trached and on a T-piece. He does spontaneously move the left upper extremity and moves it to noxious stimulation of the lower extremities. He had no extremity response with noxious stimulation to that extremity. <Roc Castillo E - Last Filed: 09/30/17 10:44> Physical Exam Vital signs: Vital Signs 09/29/17 12:00 09/29/17 14:00 09/29/17 16:00 Temperature 97.8 F 98.7 F Pulse Rate 73 82 92 H Respiratory Rate 23 25 H Blood Pressure 132/75 141/67 H Pulse Oximetry 96 97 09/29/17 18:00 09/29/17 19:46 09/29/17 20:00 Temperature 98.1 F Pulse Rate 96 H 100 H 92 H Respiratory Rate 22 18 Blood Pressure 96/55 L Pulse Oximetry 96 97 09/29/17 22:00 09/29/17 23:56 09/30/17 00:00 Temperature 98.2 F Pulse Rate 116 H 72 Respiratory Rate 18 Blood Pressure 112/64 Pulse Oximetry 100 100 09/30/17 02:00 09/30/17 03:21 09/30/17 04:00 Temperature 98 F Pulse Rate 80 82 Respiratory Rate 26 H Blood Pressure 111/58 L Pulse Oximetry 99 98 09/30/17 06:00 09/30/17 07:51 09/30/17 07:52 Temperature Pulse Rate 84 97 H Respiratory Rate 23 Blood Pressure Pulse Oximetry 96 09/30/17 08:00 Temperature 97.2 F L Pulse Rate 94 H Respiratory Rate 22 Blood Pressure 111/58 L Pulse Oximetry 100 Intake & Output 09/29/17 09/30/17 09/30/17 18:59 06:59 18:59 Intake Total 1113 / 1113 1298 / 1298 Output Total 2049 / 2049 950 / 950 Balance -937 / -937 348 / 348 Weight 66.3 kg Intake: Oral 0 / 0 Tube Feeding 573 / 573 698 / 698 Tube Irrigant 60 / 60 Water Bolus Amount 480 / 480 600 / 600 Output: Urine 2049 950 / 950 Stool 0 / 0 Other: Date of Last Bowel Movement 09/29/17 09/29/17 09/29/17 Narrative: GENERAL: Asleep but opens eyes to voice. Trached and on T-piece. He is tachypneic. HEENT: Normocephalic, atraumatic. Pupils equal 2mm reactive. MUSCULOSKELETAL: No evident clubbing or deformity. Dependent edema to all extremities. Spontaneously moving left upper. NEUROLOGICAL: Asleep but awakens to voice. Trached, nonverbal. Moving LUE spontaneously. The patient moves the LUE in response to noxious stimulation of the BLE. When noxious stimulation was applied to an extremity there was no response with it. - Urinary Catheter Management Indwelling Urethral Catheter Cath placed during this visit: yes Reason for continuing: Chronic Urinary Retention Insertion date: 08/20/17 Insertion time: 17:00 <Roc Castillo E - Last Filed: 09/30/17 10:44> Vital signs: Vital Signs 09/29/17 22:00 09/29/17 23:56 09/30/17 00:00 Temperature 98.2 F Pulse Rate 116 H 72 Respiratory Rate 18 Blood Pressure 112/64 Pulse Oximetry 100 100 09/30/17 02:00 09/30/17 03:21 09/30/17 04:00 Temperature 98 F Pulse Rate 80 82 Respiratory Rate 26 H Blood Pressure 111/58 L Pulse Oximetry 99 98 09/30/17 06:00 09/30/17 07:51 09/30/17 07:52 Temperature Pulse Rate 84 97 H Respiratory Rate 23 Blood Pressure Pulse Oximetry 96 09/30/17 08:00 09/30/17 10:00 09/30/17 12:00 Temperature 97.2 F L 98.4 F Pulse Rate 94 H 78 82 Respiratory Rate 22 24 Blood Pressure 111/58 L 99/56 L Pulse Oximetry 100 97 09/30/17 14:00 09/30/17 16:00 09/30/17 18:00 Temperature 97.9 F Pulse Rate 88 86 82 Respiratory Rate 23 Blood Pressure 105/58 L Pulse Oximetry 99 09/30/17 19:33 Temperature Pulse Rate 81 Respiratory Rate 17 Blood Pressure Pulse Oximetry 99 Intake & Output 09/30/17 09/30/17 10/01/17 06:59 18:59 06:59 Intake Total 1298 / 1298 1283 / 1283 Output Total 950 / 950 850 / 850 Balance 348 / 348 433 / 433 Weight 66.3 kg Intake: Oral 0 / 0 Tube Feeding 698 / 698 533 / 533 Tube Irrigant 30 / 30 Water Bolus Amount 600 / 600 720 / 720 Output: Urine 950 / 950 Stool 0 / 0 0 / 0 Urine Amount (Catheter) 850 / 850 Indwelling Urethral Catheter 850 / 850 Other: Date of Last Bowel Movement 09/29/17 09/30/17 - Urinary Catheter Management Indwelling Urethral Catheter Cath placed during this visit: no <Anuj Victor - Last Filed: 09/30/17 21:03> Assessment and Plan - Plan Impression: 1. 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 2. Sepsis 3. Respiratory failure, tracheostomy in place. Now on CPAP "Advised the patient's son that a more extensive decompression could be pursued with full laminectomy and fusion, however this may be associated with its own increase chance of failed fusion, wound healing issues and more extensive anesthesia time. Realistically given the severe degree of atrophy and myelomalacia within the cord, it is unlikely that the patient will have any better outcome with a more aggressive decompression and stabilization procedure. The patient's son appears to understand this and indicates that he does not wish to try to pursue any further surgical intervention. I advised him that chance of any recovery of sensorimotor function is very slim, and if it does occur it could take several months. I advised him that it is highly unlikely that with any treatment the patient would be ambulatory again." - Dr Victor at 1924 Patient asleep but awakens to voice. Spontaneous LUE movement. No extremity response w/noxious stimulation to it but patient does move LUE in response to BLE local noxious stimulation. Reviewed labs for today. Resolution of leukocystosis. Improvement in haemoglobin level. Worsening of thrombocytopenia. Sodium 139. eGFR >89. "Follow-up MRI 09/25/2017 images reveal good central decompression of the spinal cord in the mid to upper cervical region. There may be a small amount of epidural hematoma along the left side without significant canal compromise. There is significant thinning of the spinal cord at the previous C4-5 stenotic region with persistent increased signal intensity not significantly changed compared to preoperative study." - Dr Victor at 1916 POD #11 () s/p: C3-5 laminoplasty Plan: Primary & critical care management per Endoscopy Support Specialist. Palliative Care following. [place] J cervical collar at all times. No further surgical interventions per son. <Roc Castillo E - Last Filed: 09/30/17 10:44> - Attending Attestation The exam, history, and the medical decision-making described in the above note were completed with the assistance of the mid-level provider. I reviewed and agree with the findings presented. I attest that I had a [id number] encounter with the patient on the same day, and personally performed and documented my assessment and findings in the medical record. Patient remains intermittently awake and responsive. Moderate right and mild left upper extremity movement to command. Indicates sensation lower extremities to moderate stimulation but no lower extremity movement. Discussed at length with the patient's son on 09/29/2017. He does not desire further surgical intervention. Patient's prognosis remains extremely poor for any meaningful recovery of neurologic function. <Anuj Victor - Last Filed: 09/30/17 21:03>
[2017-09-30] MEDS: Chlorhexidine 0.12% Oral Kit 15 ML UDC SWISH-SPIT SCH ×2 (14:38→21:57)
--- NOTE | 2017-09-30 16:37 | P.PNPAL ---
Reason for Visit Reason for visit: a. To assist with evaluation and management of symptoms including: dyspnea, pain, agitation b. To assist medical decision maker(s) with: better understanding of current medical conditions; weighing benefits/burdens of medical treatment options; making medical treatment decisions. Subjective Subjective/Interval History: Patient s/p C2-C3 to 5 laminoplasty for severe cervical spinal cord stenosis. Patient has reported better movement of left arm when awake. So much so that he is on retraint. He is sleeping on my visit. I was not able to wake patient up on this visit. He appears not in pain or agitated. Patient's family (both sons, and spouse) at bedside. Family/Friend Interactions: I met with family at bedside. [employer] translation service was used for family meeting. Updated eldest son who has just arrived from [place]. Again I reviewed patient condition. Stating that neurlogically this may be as best the patient may get. I noted there may be some improvement, but overall prognosis for functional neurological recovery is poor. I reviewed and ask about their discussion with neurosurgeon and they stated, they do not want to put patient through another surgery again. I reviewed again that it is very likely/ suspicious the masses in his lungs are cancer. I review with them very soon they will likely be moved to another floor. I told them if they feel pt's is suffering/ or in pain and goals of care change option just palliation/hospice is available. Goals of care are the following: Currently they are awaiting pt's grandson to arrive. They are not sure when as he has just received the letter I have written for him/ and he is now applying for a visa. They have also seen that his right hand moving today, which is new. They want to take it day by day. Pt's spouse ask when will the patient be able to speak: I did answer her question that it takes time and it takes a [place] Valve. They have heard about pt's prognosis, but I do not anticipate goals of care will change at this time unless there is another setback; and/or when grandson arrives. Objective Vital Signs: Vital Signs 09/29/17 18:00 09/29/17 19:46 09/29/17 20:00 Temperature 98.1 F Pulse Rate 96 H 100 H 92 H Respiratory Rate 22 18 Blood Pressure 96/55 L Pulse Oximetry 96 97 09/29/17 22:00 09/29/17 23:56 09/30/17 00:00 Temperature 98.2 F Pulse Rate 116 H 72 Respiratory Rate 18 Blood Pressure 112/64 Pulse Oximetry 100 100 09/30/17 02:00 09/30/17 03:21 09/30/17 04:00 Temperature 98 F Pulse Rate 80 82 Respiratory Rate 26 H Blood Pressure 111/58 L Pulse Oximetry 99 98 09/30/17 06:00 09/30/17 07:51 09/30/17 07:52 Temperature Pulse Rate 84 97 H Respiratory Rate 23 Blood Pressure Pulse Oximetry 96 09/30/17 08:00 09/30/17 10:00 09/30/17 12:00 Temperature 97.2 F L 98.4 F Pulse Rate 94 H 78 82 Respiratory Rate 22 24 Blood Pressure 111/58 L 99/56 L Pulse Oximetry 100 97 09/30/17 14:00 Temperature Pulse Rate 88 Respiratory Rate Blood Pressure Pulse Oximetry Intake & Output 09/29/17 09/30/17 09/30/17 18:59 06:59 18:59 Intake Total 1113 / 1113 1298 / 1298 Output Total 2049 / 2049 950 / 950 Balance -937 / -937 348 / 348 Weight 66.3 kg Intake: Oral 0 / 0 Tube Feeding 573 / 573 698 / 698 Tube Irrigant 60 / 60 Water Bolus Amount 480 / 480 600 / 600 Output: Urine 0 / 0 950 / 950 Stool 0 / 0 Other: Date of Last Bowel Movement 09/29/17 09/29/17 09/30/17 Physical Exam: CONSTITUTIONAL/GENERAL: This is an adequately nourished patient , on mech vent . sleeping TUBES/LINES/DRAINS: trach- t piece, ceja, PIV x2 BUE, OGT SKIN: No jaundice, rashes, or lesions. No wounds seen anteriorly. skin warm/ dry EYES: no eye opening. No injection or drainage. Fundi not examined. ENT: Nose without bleeding or purulent drainage. Limited oropharynx exam 2/2 + T piece CARDIOVASCULAR: RRR without murmurs. No JVD. Peripheral pulses symmetric. Trace periph edema to hands. RESPIRATORY/CHEST: unlabored respirations Coarse breath sounds. Diminished sounds bases. GASTROINTESTINAL: Abdomen soft, non-tender, nondistended. No hepato-splenomegaly , or palpable masses. Bowel sounds present. TF infusing via OGT MUSCULOSKELETAL: Trace +BUE edema. +soft restraints lower ext. No mottling or clubbing. NEUROLOGICAL: n vent. sleeping. spontaneous movement of left upper ext. none elsewhere on my exam. PSYCH: no apparent distress, limited assess 2/2 clinical condition Diagnostic Tests Laboratory: Laboratory Results - last 72 hr 09/27/17 09/28/17 09/28/17 20:12 00:01 20:27 WBC RBC Hgb Hct MCV MCH MCHC RDW Plt Count MPV Neut % (Auto) Lymph % (Auto) Hunt % (Auto) Eos % (Auto) Baso % (Auto) Neut # (Auto) Lymph # (Auto) Hunt # (Auto) Eos # (Auto) Baso # (Auto) WBC Differential Differential Comment Sodium Potassium Chloride Carbon Dioxide Anion Gap BUN Creatinine Estimated GFR POC Glucose 155 H 112 H 168 H Random Glucose Calcium 09/29/17 09/29/17 09/29/17 02:44 04:05 04:05 WBC 11.4 H RBC 3.58 L Hgb 10.7 L Hct 32.3 L MCV 90.2 MCH 29.8 MCHC 33.0 RDW 19.5 H Plt Count 138 L MPV 7.9 Neut % (Auto) 96.2 H Lymph % (Auto) 1.1 L Hunt % (Auto) 2.4 Eos % (Auto) 0.0 Baso % (Auto) 0.3 Neut # (Auto) 11.0 H Lymph # (Auto) 0.1 L Hunt # (Auto) 0.3 Eos # (Auto) 0.0 Baso # (Auto) 0.0 WBC Differential . Differential Comment Auto diff final Sodium 137 Potassium 4.4 Chloride 98 Carbon Dioxide 29.5 Anion Gap 10 BUN 32 H Creatinine 0.46 L Estimated GFR Greater than 89 POC Glucose 92 Random Glucose 114 H Calcium 8.7 09/29/17 09/29/17 09/29/17 08:56 14:57 20:40 WBC RBC Hgb Hct MCV MCH MCHC RDW Plt Count MPV Neut % (Auto) Lymph % (Auto) Hunt % (Auto) Eos % (Auto) Baso % (Auto) Neut # (Auto) Lymph # (Auto) Hunt # (Auto) Eos # (Auto) Baso # (Auto) WBC Differential Differential Comment Sodium Potassium Chloride Carbon Dioxide Anion Gap BUN Creatinine Estimated GFR POC Glucose 127 H 203 H 116 H Random Glucose Calcium 09/30/17 09/30/17 09/30/17 02:55 05:00 05:00 WBC 10.7 RBC 3.81 L Hgb 11.3 L Hct 36.6 L MCV 96.1 D MCH 29.7 MCHC 30.9 L RDW 20.5 H Plt Count 109 L MPV 8.1 Neut % (Auto) Lymph % (Auto) Hunt % (Auto) Eos % (Auto) Baso % (Auto) Neut # (Auto) Lymph # (Auto) Hunt # (Auto) Eos # (Auto) Baso # (Auto) WBC Differential Differential Comment Sodium 139 Potassium 3.8 Chloride 104 Carbon Dioxide 24.9 Anion Gap 10 BUN 47 H Creatinine 0.54 L Estimated GFR Greater than 89 POC Glucose 132 H Random Glucose 111 H Calcium 8.4 L 09/30/17 09/30/17 08:15 14:00 WBC RBC Hgb Hct MCV MCH MCHC RDW Plt Count MPV Neut % (Auto) Lymph % (Auto) Hunt % (Auto) Eos % (Auto) Baso % (Auto) Neut # (Auto) Lymph # (Auto) Hunt # (Auto) Eos # (Auto) Baso # (Auto) WBC Differential Differential Comment Sodium Potassium Chloride Carbon Dioxide Anion Gap BUN Creatinine Estimated GFR POC Glucose 119 H 171 H Random Glucose Calcium Result Diagrams: 09/30/17 05:00 09/30/17 05:00 Imaging: ITS Impressions Cervical Spine X-Ray 09/19/17 00:00 CONCLUSION: Surgical hardware noted posteriorly at the C3-C5 levels. Chest X-Ray 09/22/17 06:00 CONCLUSION: 1. No significant interval change 2. Stable mild bilateral patchy airspace disease, more prominent on the left. 3. Chronic appearing bilateral pleural opacities. Cervical Spine MRI 09/25/17 00:00 CONCLUSION: 1. Status post laminectomy at the C3-C5 levels. Surgical hardware seen at the posterior elements at these levels. 2. Moderate stenosis at the C4-C5 level secondary to disc bulge and central disc protrusion. There is abnormal signal again seen within the cord. The cord appears small this region. This likely secondary to myelomalacia. 3. Mild to moderate narrowing of the thecal sac at the C5-C6 and C6-C7 level. 4. Neural foraminal narrowing throughout the cervical spine as described above. 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 Right middle lobe 2.7 x 2.2 x 7's. Spiculated. Left lingula is 3.4 x 3.20 cm. COPD (2) SVT (supraventricular tachycardia) (3) Lung mass Comment: revealed 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 Right middle lobe 2.7 x 2.2 x 7's. Spiculated. Left lingula is 3.4 x 3.20 cm. 1st biopsy did not show malignancy. 2nd biopsy on hold. (4) Diabetes (5) Gout (6) Spinal stenosis - Symptom Scale (1) Dyspnea 0-10 Scale: Unable to quantify (2) Pain 0-10 Scale: Unable to quantify Pertinent Non-Medical Issues: Psychosocial: Retired. He was living at home with his Tommie Gutierrez and his son "Cristina Palmer. Recently returned from [place] trip [place]. Speaks Mandarin only. He also has another son who had just arrive from [place]. He is awaiting for his grandson to arrive also from [place]. Spiritual: unk at this time Legal: Per [place] statutes legal decision maker proxy is pt's . It appears she may have been deferring to son but has been present for major decisions. Family appears to be working together. Ethical issues impacting care: no issues identified Important Contacts: Spencer Reilly [phone] Son "Cristina Palmer [phone] Prognosis: 77 yo critically ill pt with respiratory failure, likely malignant lung nodules , underlying diastolic heart failure and DM. Prognosis for recovery to previous status is poor given likely malignancy in the lungs, poor neurological progress in which pt is essentially functionally quadraplegic, risk for infections bedsores, various complications. Code Status: Alternative Code Plan: CODE STATUS - Alternate- no shock, no compression, no acls drugs. Just intubation. Capacity- he does not appears to be able to weigh the risk and benefits of decision on my visit. There is confusion and agitation. LEGAL DECISION MAKER - per [place] statutes is proxy , who defers decisions to son, [place], family all working together. Family meetings-palliative has met at length with patient's family multiple times. Last extensive family meeting was 09/24/2017. We had reviewed: all the challenges pt faces. Review that neurologically, there is a strong possibility that he well remain essentially quadriplegic. Neurosurgery had endorse that overall prognosis is poor. I reviewed with family the high probability those lung mass are cancer, and that given his current condition it is not likely he could tolerate treatment. This may the the best pt can get, and likely will have complications with various infection/ trach issues, aspiration risk, bed sores, deblity. Reemphasize overall prognosis is poor. Today (09/30) met with family at bedside. [employer] phone translation service was used for family meeting. Updated eldest son who has just arrived from [place]. Again I reviewed patient condition. Stating that neurlogically this may be as best the patient may get. I noted there may be some improvement, but overall prognosis for functional neurological recovery is poor. I reviewed and ask about their discussion with neurosurgeon and they stated, they do not want to put patient through another surgery again. I reviewed again that it is very likely/ suspicious the masses in his lungs are cancer. I review with them very soon pt may likely be moved to another floor. I told them if they feel pt's is suffering/ or in pain and goals of care change ; option of just palliation/hospice is available. Goals of care are the following: = Currently they are awaiting pt's grandson to arrive. They are not sure when as he has just received the letter I have written for him/ and he is now applying for a visa. = They have also seen that his right hand moving today, which is new. They want to take it day by day. = Pt's spouse ask when will the patient be able to speak: I did answer her question that it takes time and it requires a [place] Valve. =They have heard about pt's prognosis, but I do not anticipate goals of care will change at this time unless there is another setback; and/or when grandson arrives. SYMPTOMS * shortness of breath - 2/2 pleural effusions, underlying diastolic heart failure. Questionable malignancy, hx remote TB. O. Status post tracheostomy. appears stable currently * pain - ?cause? presented with right side and thoracic pain. imaging showing lung nodules. BX benign, ?repeat. 0/10 pain per nursing scores. appears comfortable, no signs of pain on exam. Appears comfortable. * agitation - . there is some reported agitation. sedation per CCM- Palliative care will continue to follow during hospital course as condition evolves to assist patient/decision maker with understanding of medical conditions, benefits/burdens of treatment options, clarification of goals of treatment, and will assist with symptoms of palliative concern.
[2017-10-01] MEDS: Oral Hygiene Kit OROPHARYNG SCH ×4 (00:18→16:38)
[2017-10-01] MEDS: Insulin NovoLOG Aspart Correctional Sugar Inj SQ SCH ×4 (02:00→21:38)
[2017-10-01] MEDS: Chlorhexidine Gluconate 2% 1 Pack (2 Cloths) TOPICAL SCH (04:55)
[2017-10-01] MEDS: Artificial Tears Opth Drops 15 ML Bottle EACH EYE SCH ×3 (05:55→21:41)
[2017-10-01 06:58] LABS: Hematocrit 33.3 % (39.0-51.0); Hemoglobin 10.9 gm/dL (13.0-17.0); Mean Corpuscular HGB Conc 32.7 % (32.0-36.0); Mean Corpuscular Hemoglobin 29.9 pg (27.0-34.0); Mean Corpuscular Volume 91.2 fL (80.0-100.0); Mean Platelet Volume 7.8 fL (7.0-11.0); Platelet Count 144 th/mm3 (150-450); Red Blood Count 3.65 mil/mm3 (4.50-5.90); Red Cell Distribution Width 19.5 % (11.6-17.2); White Blood Count 9.6 th/mm3 (4.0-11.0)
[2017-10-01 07:18] LABS: Anion Gap 10 meq/L (5-15); Blood Urea Nitrogen 56 mg/dL (7-18); Carbon Dioxide 27.4 meq/L (21.0-32.0); Chloride 102 meq/L (98-107); Glomerular Filtration Rate Greater Than 89 mL/min (>89); Glucose,Random 114 mg/dL (74-106); Potassium 3.6 meq/L (3.5-5.1); Sodium 139 meq/L (136-145)
[2017-10-01] MEDS: Morphine Inj 4 MG/ML Vial IV.PUSH PRN ×2 (07:53→21:46)
[2017-10-01] MEDS: Metoprolol Tartrate 50 MG Tablet PO SCH ×3 (08:04→21:40)
[2017-10-01] MEDS: ALPRAZolam 0.25 MG Tablet PO PRN (08:05)
[2017-10-01] MEDS: MethylPREDNISolone Sod Succinate Inj 40 MG/ML Vial IV.PUSH SCH (08:39)
[2017-10-01] MEDS: Senna/Docusate Sodium 8.6/50 MG Tablet PO SCH ×2 (08:39→21:40)
[2017-10-01] MEDS: Insulin Detemir Inj 1,000 UNIT/10 ML Vial SQ SCH ×2 (08:40→21:39)
[2017-10-01] MEDS: Beneprotein Powder Packet G-TUBE SCH ×2 (08:40→12:53)
--- NOTE | 2017-10-01 10:56 | P.PNIM ---
Subjective Interval history: No big change with neurologic deficits, with spontaneous movement of left upper extremity but not on the right and bilateral lower extremities. Has been trying to pull off IV with left upper extremity. Nonverbal, does not follow any commands. Physical Exam Vital signs: Vital Signs 09/30/17 12:00 09/30/17 14:00 09/30/17 16:00 Temperature 98.4 F 97.9 F Pulse Rate 82 88 86 Respiratory Rate 24 23 Blood Pressure 99/56 L 105/58 L Pulse Oximetry 97 99 09/30/17 18:00 09/30/17 19:33 09/30/17 20:00 Temperature 98.0 F Pulse Rate 82 81 104 H Respiratory Rate 17 28 H Blood Pressure 115/62 Pulse Oximetry 99 96 09/30/17 22:00 10/01/17 00:00 10/01/17 00:01 Temperature 98.4 F Pulse Rate 104 H 104 H Respiratory Rate 28 H Blood Pressure 110/64 Pulse Oximetry 98 100 10/01/17 04:00 Temperature 98.6 F Pulse Rate 117 H Respiratory Rate 26 H Blood Pressure 114/66 Pulse Oximetry 95 Intake & Output 09/30/17 10/01/17 10/01/17 18:59 06:59 18:59 Intake Total 1283 / 1283 Output Total 850 / 850 Balance 433 / 433 Intake: Oral 0 / 0 Tube Feeding 533 / 533 Tube Irrigant 30 / 30 Water Bolus Amount 720 / 720 Output: Stool 0 / 0 Urine Amount (Catheter) 850 / 850 Indwelling Urethral Catheter 850 / 850 Other: Date of Last Bowel Movement 09/30/17 09/30/17 Narrative: GENERAL: 77-year-old male currently on t-piece via trach. NECK: Trachea midline. Trach site with minimal drainage. T piece in place. CARDIOVASCULAR: normal rate, regular rhythm. No JVD LUNGS: Coarse rhonchi appreciated bilaterally. Acceptable bilateral air movement. GASTROINTESTINAL: Abdomen soft, non-tender, nondistended. No guarding. MUSCULOSKELETAL: Extremities without significant peripheral edema. Well perfused. NEUROLOGICAL: Asleep, with spontaneous eye opening, trach, nonverbal, moving left upper extremity spontaneo Does not follow any commands. Nonverbal. - Urinary Catheter Management Indwelling Urethral Catheter Cath placed during this visit: yes Reason for continuing: Chronic Urinary Retention Insertion date: 08/20/17 Insertion time: 17:00 Results - Labs CBC & Chem 7: 10/01/17 05:26 10/01/17 05:26 Laboratory Results - last 24 hr 09/30/17 09/30/17 10/01/17 14:00 21:47 05:26 WBC 9.6 RBC 3.65 L Hgb 10.9 L Hct 33.3 L MCV 91.2 D MCH 29.9 MCHC 32.7 RDW 19.5 H Plt Count 144 L D MPV 7.8 Sodium Potassium Chloride Carbon Dioxide Anion Gap BUN Creatinine Estimated GFR POC Glucose 171 H 164 H Random Glucose Calcium 10/01/17 10/01/17 05:26 08:49 WBC RBC Hgb Hct MCV MCH MCHC RDW Plt Count MPV Sodium 139 Potassium 3.6 Chloride 102 Carbon Dioxide 27.4 Anion Gap 10 BUN 56 H Creatinine 0.44 L Estimated GFR Greater than 89 POC Glucose 141 H Random Glucose 114 H Calcium 9.0 Assessment and Plan - Plan Postoperative C2 hemilaminectomy, C3 through 5 lamina plasty secondary to cervical stenosis, spinal stenosis by Dr. Victor Quadriplegia Severe cervical spinal cord stenosis, with acute spinal cord injury Toxic metabolic encephalopathy - MRI C-spine 09/15: Focal severe spinal canal stenosis at C4-5. There is increased signal within the body of the spinal cord at this level most likely representing some myelomalacia. Moderate diffuse broad-based bulging at C3-4 with some mild increased signal in the spinal cord at this level. Moderate spinal canal stenosis at C6-C7 Bilateral facet arthritis at multiple levels. Extensive degenerative changes with disc degeneration and disc space narrowing throughout the entire C spine. Head CT 08/23: 2 questionable tiny focal hemorrhages. MRI of brain 08/26 chronic small vessel ischemic and atrophic changes - EEG 09/03 revealed severe encephalopathy. No epileptiform activity - Neurosurgery Dr. Victor. Poor chance of neurological recovery for him, recent discussion with Dr. Smith and son, no further surgical intervention per son. - Neurology Dr. Carvalho. Per his recommendations was placed on high dose solumedrol 250 mg every 6 hours started 09/16, tapered., 40 mg once daily from . Will discuss with Dr. Carvalho prior to stopping. -Continue Tylenol, oxycodone, morphine, physical therapy. Uncontrolled hypertension - improved. Septic shock- resolved Atherosclerotic coronary artery disease Atrial fibrillation Elevated troponin downward trend Fluid overload Amiodarone Discontinued 09/07 secondary to bradycardia and pauses Continue metoprolol 50 mg twice daily Continue digoxin 0.125 mg daily. (Home medication is NITRENDIPINE 10 mg by mouth daily) Acute, now chronic hypoxic hypercapnic respiratory failure COPD with exacerbation/Emphysema Trach site infection Bilateral pleural effusion/status post chest tube right-sided transudative in nature. Chest tube removed 09/04 Multiple bilateral pulmonary masses vs infiltrate, RML mass vs consolidation Pulmonary edema -CT pulmonary angiogram revealed 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 Lung mass biopsied on August 28 showed CHRONIC INFLAMMATORY AND REACTIVE FIBROBLASTIC TISSUE CONTAINING ENTRAPPED BENIGN EPITHELIUM, plan is reconsult IR 09/08 for repeat biopsy however patient is not stable. Followed by Dr. Hardy/pulmonology. Reconsulted 09/08, recommended repeat CT in 4 weeks and to hold off IR guided biopsy due to respiratoy and neuro status. s/p percutaneous tracheostomy 09/08 ([facility] [place]), Status post thoracentesis left side 09/09 with 1 L fluid removed. No evidence of infection. - Tolerating T-piece 09/28, continue t-piece as tolerated. - continue inhaled budesonide 0.5/2 1 inhalation twice daily, Albuterol/ ipratropium aerosols every 4 hours with albuterol aerosols every 2 hours as needed dyspnea Hypoalbuminemia Acute protein calorie malnutrition -severe s/p PEG 09/11. Tolerating tube feeds with Glucerna 1.5 at 55 cc an hour, free water flushes 300 cc every 6 hours Lansoprazole for GI prophylaxis Lactulose 30 cc twice daily for bowel regimen/hyperammonemia Urinary retention, possible urinary stricture Acute kidney injury Maintain [place] catheter. Monitor urine output, Accurate I's and O's significant difficulty due to obstruction which may be urethral stricture which prevented serial i/o. replaced Larson catheter. Avoid nephrotoxic drugs. Diabetes mellitus Hyperglycemia History of gout Sliding scale insulin with NovoLog high regimen to maintain euglycemia Currently on insulin detemir 10 units subq twice daily Holding home medications of allopurinol 300 mg daily and colchicine 0.6 mg as needed Holding home medications of metformin 500 mg twice daily Leukocytosis Normocytic anemia Monitor CBC daily. Follow trends Coags within normal limits Severe sepsis - resolved Trach site infection - resolved Healthcare associated pneumonia - resolved C. difficile colitis Status post bronchoscopy 09/03 cultures negative Blood culture from 08/20/ 08/26 no growth to date Sputum 09/05 no growth Influenza a and B negative 09/07 Bronchial wash negative Appreciate ID input. off all abx except PO vancomycin completed 09/30. FEN: Hypernatremia - resolved Prophylaxis -GI -lansoprazole. DVT -SCD/heparin subcutaneous Overall impression: This gentleman remains weak and debilitated, functionally quadriparetic. Long-term prognosis for a meaningful recovery is quite poor. The best we can probably hope for is a skilled facility. continue t-piece trials and now working towards placement. Hospitalist to assume care in am. Pulmonary following Alternative Code
[2017-10-01] MEDS: Chlorhexidine 0.12% Oral Kit 15 ML UDC SWISH-SPIT SCH ×2 (11:20→21:39)
--- NOTE | 2017-10-01 14:48 | P.PNNS ---
Subjective Interval history: 10/01: trached on t-piece. reports spontaneous movements left upper, no movements seen right upper and b/l LE. Physical Exam Vital signs: Vital Signs 09/30/17 16:00 09/30/17 18:00 09/30/17 19:33 Temperature 97.9 F Pulse Rate 86 82 81 Respiratory Rate 23 17 Blood Pressure 105/58 L Pulse Oximetry 99 99 09/30/17 20:00 09/30/17 22:00 10/01/17 00:00 Temperature 98.0 F 98.4 F Pulse Rate 104 H 104 H 104 H Respiratory Rate 28 H 28 H Blood Pressure 115/62 110/64 Pulse Oximetry 96 98 10/01/17 00:01 10/01/17 04:00 10/01/17 08:00 Temperature 98.6 F 98.7 F Pulse Rate 117 H 144 H Respiratory Rate 26 H 34 H Blood Pressure 114/66 146/67 H Pulse Oximetry 100 95 92 L 10/01/17 12:00 Temperature 98.9 F Pulse Rate 90 Respiratory Rate 27 H Blood Pressure 108/56 L Pulse Oximetry 94 L Intake & Output 09/30/17 10/01/17 10/01/17 18:59 06:59 18:59 Intake Total 1283 / 1283 0 / 0 Output Total 850 / 850 305 / 305 Balance 433 / 433 -305 / -305 Weight 66.3 kg Intake: Oral 0 / 0 0 / 0 Tube Feeding 533 / 533 0 / 0 Tube Irrigant 30 / 30 0 / 0 Water Bolus Amount 720 / 720 0 / 0 Anesthesia Amount 0 / 0 Other 0 / 0 Output: Urine 0 / 0 Stool 0 / 0 0 / 0 Estimated Blood Loss 300 / 300 Urine Amount (Catheter) 850 / 850 Indwelling Urethral Catheter 850 / 850 Wound Drainage 5 / 5 # 1 Posterior Neck [place] Drain 5 / 5 Other: Other Intake Source Saline Solution Date of Last Bowel Movement 09/30/17 09/30/17 10/01/17 # Bowel Movements 0 # Incontinent Bowel Movements 0 Narrative: [place] collar, T piece in place. Extremities without significant peripheral edema. pupils equal, spontaneous movement to left hand - Urinary Catheter Management Indwelling Urethral Catheter Cath placed during this visit: yes Reason for continuing: Chronic Urinary Retention Insertion date: 08/20/17 Insertion time: 17:00 Assessment and Plan - Plan Impression: 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 s/p: C3-5 laminoplasty 09/19/17 Cervical Spine MRI 09/25/17 00:00 CONCLUSION: 1. Status post laminectomy at the C3-C5 levels. Surgical hardware seen at the posterior elements at these levels. 2. Moderate stenosis at the C4-C5 level secondary to disc bulge and central disc protrusion. There is abnormal signal again seen within the cord. The cord appears small this region. This likely secondary to myelomalacia. 3. Mild to moderate narrowing of the thecal sac at the C5-C6 and C6-C7 level. 4. Neural foraminal narrowing throughout the cervical spine as described above. Plan: Primary & critical care management per Landscape Management Technician. Palliative Care following. [place] J cervical collar at all times. No further surgical interventions per son.
[2017-10-02] MEDS: Oral Hygiene Kit OROPHARYNG SCH ×4 (02:30→16:21)
[2017-10-02] MEDS: Insulin NovoLOG Aspart Correctional Sugar Inj SQ SCH ×4 (02:31→20:50)
[2017-10-02] MEDS: Morphine Inj 4 MG/ML Vial IV.PUSH PRN ×5 (04:23→20:22)
[2017-10-02 05:58] LABS: Hematocrit 34.1 % (39.0-51.0); Hemoglobin 11.2 gm/dL (13.0-17.0); Mean Corpuscular HGB Conc 32.9 % (32.0-36.0); Mean Corpuscular Hemoglobin 29.9 pg (27.0-34.0); Mean Corpuscular Volume 90.7 fL (80.0-100.0); Mean Platelet Volume 8.1 fL (7.0-11.0); Platelet Count 157 th/mm3 (150-450); Red Blood Count 3.76 mil/mm3 (4.50-5.90); Red Cell Distribution Width 20.4 % (11.6-17.2); White Blood Count 9.5 th/mm3 (4.0-11.0)
[2017-10-02 06:02] LABS: Anion Gap 9 meq/L (5-15); Blood Urea Nitrogen 48 mg/dL (7-18); Calcium 8.8 mg/dL (8.5-10.1); Carbon Dioxide 27.6 meq/L (21.0-32.0); Chloride 103 meq/L (98-107); Glomerular Filtration Rate Greater Than 89 mL/min (>89); Glucose,Random 114 mg/dL (74-106); Sodium 140 meq/L (136-145)
[2017-10-02] MEDS: Chlorhexidine Gluconate 2% 1 Pack (2 Cloths) TOPICAL SCH (06:04)
[2017-10-02] MEDS: Artificial Tears Opth Drops 15 ML Bottle EACH EYE SCH ×3 (06:05→22:59)
[2017-10-02] MEDS: Chlorhexidine 0.12% Oral Kit 15 ML UDC SWISH-SPIT SCH ×2 (08:21→20:55)
[2017-10-02] MEDS: Beneprotein Powder Packet G-TUBE SCH ×4 (08:21→17:56)
[2017-10-02] MEDS: MethylPREDNISolone Sod Succinate Inj 40 MG/ML Vial IV.PUSH SCH (09:18)
[2017-10-02] MEDS: Senna/Docusate Sodium 8.6/50 MG Tablet PO SCH ×2 (09:19→20:25)
[2017-10-02] MEDS: Metoprolol Tartrate 50 MG Tablet PO SCH ×2 (09:25→20:24)
[2017-10-02] MEDS: Insulin Detemir Inj 1,000 UNIT/10 ML Vial SQ SCH ×2 (09:25→20:24)
--- NOTE | 2017-10-02 11:24 | P.PNIM ---
Subjective Interval history: Discussed with nursing, no changes overnight. Similar neurologic deficits. Afebrile. Physical Exam Vital signs: Vital Signs 10/01/17 12:00 10/01/17 14:00 10/01/17 16:00 Temperature 98.9 F 98.4 F Pulse Rate 90 97 H 96 H Respiratory Rate 27 H 30 H Blood Pressure 108/56 L 103/59 L Pulse Oximetry 94 L 96 10/01/17 18:00 10/01/17 19:42 10/01/17 19:44 Temperature Pulse Rate 93 H 92 H Respiratory Rate 18 Blood Pressure Pulse Oximetry 95 10/01/17 20:00 10/01/17 22:00 10/02/17 00:00 Temperature 98.0 F 98.2 F Pulse Rate 98 H 98 H 110 H Respiratory Rate 28 H 28 H Blood Pressure 105/58 L 114/66 Pulse Oximetry 96 94 L 10/02/17 02:00 10/02/17 03:34 10/02/17 04:00 Temperature 97.9 F Pulse Rate 109 H 134 H Respiratory Rate 26 H Blood Pressure 189/84 H Pulse Oximetry 91 L 90 L 10/02/17 06:00 10/02/17 07:44 Temperature Pulse Rate 102 H 112 H Respiratory Rate 24 Blood Pressure Pulse Oximetry 93 L Intake & Output 10/01/17 10/02/17 10/02/17 18:59 06:59 18:59 Intake Total 1214 / 1214 1176 / 1176 Output Total 1305 / 1305 900 / 900 Balance -91 / -91 276 / 276 Weight 66.3 kg 65.6 kg Intake: Oral 0 / 0 Tube Feeding 614 / 614 576 / 576 Tube Irrigant 0 / 0 Water Bolus Amount 600 / 600 600 / 600 Anesthesia Amount 0 / 0 Other 0 / 0 Output: Urine 1000 / 1000 800 / 800 Stool 0 / 0 100 / 100 Estimated Blood Loss 300 / 300 Wound Drainage 5 / 5 # 1 Posterior Neck [place] Drain 5 / 5 Other: Other Intake Source Saline Solution Date of Last Bowel Movement 10/01/17 10/02/17 # Bowel Movements 0 # Incontinent Bowel Movements 0 Weight On Admission 66.3 kg Narrative: GENERAL: 77-year-old male currently on t-piece via trach. NECK: Trachea midline. Trach site with minimal drainage. T piece in place. CARDIOVASCULAR: normal rate, regular rhythm. No JVD LUNGS: Coarse rhonchi appreciated bilaterally. GASTROINTESTINAL: Abdomen soft, non-tender, nondistended. No guarding. MUSCULOSKELETAL: Extremities without significant peripheral edema. Well perfused. NEUROLOGICAL: Asleep, with spontaneous eye opening, nonverbal, moving left upper extremity spontaneously. Does not follow any commands. - Urinary Catheter Management Indwelling Urethral Catheter Cath placed during this visit: yes Reason for continuing: Terminally ill/Comfort care Insertion date: 08/20/17 Insertion time: 17:00 Results - Labs CBC & Chem 7: 10/02/17 04:21 10/02/17 04:21 Laboratory Results - last 24 hr 10/01/17 10/01/17 10/02/17 13:30 21:32 04:21 WBC 9.5 RBC 3.76 L Hgb 11.2 L Hct 34.1 L MCV 90.7 MCH 29.9 MCHC 32.9 RDW 20.4 H Plt Count 157 MPV 8.1 Sodium Potassium Chloride Carbon Dioxide Anion Gap BUN Creatinine Estimated GFR POC Glucose 216 H 138 H Random Glucose Calcium 10/02/17 04:21 WBC RBC Hgb Hct MCV MCH MCHC RDW Plt Count MPV Sodium 140 Potassium 4.0 Chloride 103 Carbon Dioxide 27.6 Anion Gap 9 BUN 48 H Creatinine 0.43 L Estimated GFR Greater than 89 POC Glucose Random Glucose 114 H Calcium 8.8 Assessment and Plan - Plan Postoperative C2 hemilaminectomy, C3 through 5 lamina plasty secondary to cervical stenosis, spinal stenosis by Dr. Victor Quadriplegia Severe cervical spinal cord stenosis, with acute spinal cord injury Toxic metabolic encephalopathy - MRI C-spine 09/15: Focal severe spinal canal stenosis at C4-5. There is increased signal within the body of the spinal cord at this level most likely representing some myelomalacia. Moderate diffuse broad-based bulging at C3-4 with some mild increased signal in the spinal cord at this level. Moderate spinal canal stenosis at C6-C7 Bilateral facet arthritis at multiple levels. Extensive degenerative changes with disc degeneration and disc space narrowing throughout the entire C spine. Head CT 08/23: 2 questionable tiny focal hemorrhages. MRI of brain 08/26 chronic small vessel ischemic and atrophic changes - EEG 09/03 revealed severe encephalopathy. No epileptiform activity - Neurosurgery Dr. Victor. Poor chance of neurological recovery for him, recent discussion with Dr. Smith and son, no further surgical intervention per son. - Neurology Dr. Carvalho. Per his recommendations was placed on high dose solumedrol 250 mg every 6 hours tapered now to 40 mg once daily from 09/29. Will discuss with Dr. Carvalho prior to stopping. Switch to oral tomorrow. -Continue Tylenol, oxycodone, morphine, physical therapy. Uncontrolled hypertension - improved. Septic shock- resolved Atherosclerotic coronary artery disease Atrial fibrillation Elevated troponin downward trend Fluid overload Amiodarone Discontinued 09/07 secondary to bradycardia and pauses, Continue metoprolol 50 mg twice daily and digoxin 0.125 mg daily. (Home medication is NITRENDIPINE 10 mg by mouth daily) Acute, now chronic hypoxic hypercapnic respiratory failure COPD with exacerbation/Emphysema Trach site infection Bilateral pleural effusion/status post chest tube right-sided transudative in nature. Chest tube removed 09/04 Multiple bilateral pulmonary masses vs infiltrate, RML mass vs consolidation Pulmonary edema -CT pulmonary angiogram revealed 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 Lung mass biopsied on August 28 showed CHRONIC INFLAMMATORY AND REACTIVE FIBROBLASTIC TISSUE CONTAINING ENTRAPPED BENIGN EPITHELIUM, plan is reconsult IR 09/08 for repeat biopsy however patient is not stable. Followed by Dr. Hardy/pulmonology. Reconsulted 09/08, recommended repeat CT in 4 weeks and to hold off IR guided biopsy due to respiratoy and neuro status. s/p percutaneous tracheostomy 09/08 ([facility]), Status post thoracentesis left side 09/09 with 1 L fluid removed. No evidence of infection. - Tolerating T-piece 09/28, continue t-piece as tolerated. - continue inhaled budesonide 0.5/2 1 inhalation twice daily, Albuterol/ ipratropium aerosols every 4 hours with albuterol aerosols every 2 hours as needed dyspnea Hypoalbuminemia Acute protein calorie malnutrition -severe s/p PEG 09/11. Tolerating tube feeds with Glucerna 1.5 at 55 cc an hour, free water flushes 300 cc every 6 hours Lansoprazole for GI prophylaxis, Lactulose 30 cc twice daily for bowel regimen/ hyperammonemia Urinary retention, possible urinary stricture Acute kidney injury Maintain Larson catheter. Monitor urine output, Accurate I's and O's significant difficulty due to obstruction which may be urethral stricture which prevented serial i/o. replaced Larson catheter. Diabetes mellitus Sliding scale insulin with NovoLog high regimen to maintain euglycemia. Currently on insulin detemir 10 units subq twice daily Leukocytosis Normocytic anemia - stable Severe sepsis - resolved Trach site infection - resolved Healthcare associated pneumonia - resolved C. difficile colitis Status post bronchoscopy 09/03 cultures negative Blood culture from 08/20/ 08/26 no growth to date Sputum 09/05 no growth Influenza a and B negative 09/07 Bronchial wash negative Appreciate ID input. off all abx except PO vancomycin completed 09/30. FEN: Hypernatremia - resolved Prophylaxis -GI -lansoprazole. DVT -SCD/heparin subcutaneous Disposition: This gentleman remains weak and debilitated, functionally quadriparetic. Long-term prognosis for a meaningful recovery is quite poor. The best we can probably hope for is a skilled facility, continue t-piece trials and now working towards placement. Patient awaiting bed at the long- term vent unit. Alternative Code
--- NOTE | 2017-10-02 12:24 | P.PNNS ---
Subjective Interval history: 10/02: no changes neuro checks overnight Physical Exam Vital signs: Vital Signs 10/01/17 14:00 10/01/17 16:00 10/01/17 18:00 Temperature 98.4 F Pulse Rate 97 H 96 H 93 H Respiratory Rate 30 H Blood Pressure 103/59 L Pulse Oximetry 96 10/01/17 19:42 10/01/17 19:44 10/01/17 20:00 Temperature 98.0 F Pulse Rate 92 H 98 H Respiratory Rate 18 28 H Blood Pressure 105/58 L Pulse Oximetry 95 96 10/01/17 22:00 10/02/17 00:00 10/02/17 02:00 Temperature 98.2 F Pulse Rate 98 H 110 H 109 H Respiratory Rate 28 H Blood Pressure 114/66 Pulse Oximetry 94 L 10/02/17 03:34 10/02/17 04:00 10/02/17 06:00 Temperature 97.9 F Pulse Rate 134 H 102 H Respiratory Rate 26 H Blood Pressure 189/84 H Pulse Oximetry 91 L 90 L 10/02/17 07:44 Temperature Pulse Rate 112 H Respiratory Rate 24 Blood Pressure Pulse Oximetry 93 L Intake & Output 10/01/17 10/02/17 10/02/17 18:59 06:59 18:59 Intake Total 1214 / 1214 1176 / 1176 Output Total 1305 / 1305 900 / 900 Balance -91 / -91 276 / 276 Weight 66.3 kg 65.6 kg Intake: Oral 0 / 0 Tube Feeding 614 / 614 576 / 576 Tube Irrigant 0 / 0 Water Bolus Amount 600 / 600 600 / 600 Anesthesia Amount 0 / 0 Other 0 / 0 Output: Urine 1000 / 1000 800 / 800 Stool 0 / 0 100 / 100 Estimated Blood Loss 300 / 300 Wound Drainage 5 / 5 # 1 Posterior Neck [place] Drain 5 / 5 Other: Other Intake Source Saline Solution Date of Last Bowel Movement 10/01/17 10/02/17 # Bowel Movements 0 # Incontinent Bowel Movements 0 Weight On Admission 66.3 kg Narrative: Awake, not following commands [place] collar, T piece in place. Extremities without significant peripheral edema. pupils equal, spontaneous movement to left upper, no movement, right upper and bilateral lower extremities - Urinary Catheter Management Indwelling Urethral Catheter Cath placed during this visit: yes Reason for continuing: Terminally ill/Comfort care Insertion date: 08/20/17 Insertion time: 17:00 Assessment and Plan - Plan Impression: 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 s/p: C3-5 laminoplasty 09/19/17 Cervical Spine MRI 09/25/17 00:00 CONCLUSION: 1. Status post laminectomy at the C3-C5 levels. Surgical hardware seen at the posterior elements at these levels. 2. Moderate stenosis at the C4-C5 level secondary to disc bulge and central disc protrusion. There is abnormal signal again seen within the cord. The cord appears small this region. This likely secondary to myelomalacia. 3. Mild to moderate narrowing of the thecal sac at the C5-C6 and C6-C7 level. 4. Neural foraminal narrowing throughout the cervical spine as described above. Plan: Primary & critical care management per Tree Driller. Palliative Care following. cont [place] J cervical collar at all times.
[2017-10-02] MEDS: ALPRAZolam 0.25 MG Tablet PO PRN (20:23)
[2017-10-03] MEDS: Morphine Inj 4 MG/ML Vial IV.PUSH PRN ×2 (00:22→19:26)
[2017-10-03] MEDS: Oral Hygiene Kit OROPHARYNG SCH ×4 (00:24→18:42)
[2017-10-03] MEDS: Insulin NovoLOG Aspart Correctional Sugar Inj SQ SCH ×4 (02:25→20:46)
[2017-10-03] MEDS: Chlorhexidine Gluconate 2% 1 Pack (2 Cloths) TOPICAL SCH (04:33)
[2017-10-03] MEDS: Artificial Tears Opth Drops 15 ML Bottle EACH EYE SCH ×3 (05:39→21:56)
[2017-10-03 06:18] LABS: Hematocrit 32.4 % (39.0-51.0); Hemoglobin 10.5 gm/dL (13.0-17.0); Mean Corpuscular HGB Conc 32.5 % (32.0-36.0); Mean Corpuscular Hemoglobin 29.8 pg (27.0-34.0); Mean Corpuscular Volume 91.6 fL (80.0-100.0); Mean Platelet Volume 7.9 fL (7.0-11.0); Platelet Count 154 th/mm3 (150-450); Red Blood Count 3.54 mil/mm3 (4.50-5.90); Red Cell Distribution Width 20.7 % (11.6-17.2); White Blood Count 7.7 th/mm3 (4.0-11.0)
[2017-10-03 07:00] LABS: Anion Gap 5 meq/L (5-15); Blood Urea Nitrogen 37 mg/dL (7-18); Calcium 8.3 mg/dL (8.5-10.1); Carbon Dioxide 31.2 meq/L (21.0-32.0); Chloride 102 meq/L (98-107); Glomerular Filtration Rate Greater Than 89 mL/min (>89); Glucose,Random 101 mg/dL (74-106); Potassium 4.2 meq/L (3.5-5.1); Sodium 138 meq/L (136-145)
[2017-10-03] MEDS: Chlorhexidine 0.12% Oral Kit 15 ML UDC SWISH-SPIT SCH ×2 (08:00→20:45)
[2017-10-03] MEDS: MethylPREDNISolone Sod Succinate Inj 40 MG/ML Vial IV.PUSH SCH (08:50)
[2017-10-03] MEDS: Metoprolol Tartrate 50 MG Tablet PO SCH ×2 (08:50→20:45)
[2017-10-03] MEDS: Beneprotein Powder Packet G-TUBE SCH ×3 (08:52→18:42)
[2017-10-03] MEDS: Senna/Docusate Sodium 8.6/50 MG Tablet PO SCH ×2 (08:58→20:45)
[2017-10-03] MEDS: Insulin Detemir Inj 1,000 UNIT/10 ML Vial SQ SCH ×2 (09:00→20:45)
--- NOTE | 2017-10-03 10:36 | P.PNNS ---
Subjective Interval history: Pt opens eyes to voice. Possibly closing eyes and opening them to command. He has some spontaneous flexion movement with left elbow but not following commands for muscle testing. Trach collar in place on humidified O2. Physical Exam Vital signs: Vital Signs 10/02/17 12:00 10/02/17 14:00 10/02/17 16:00 Temperature 98.6 F Pulse Rate 90 92 H 94 H Respiratory Rate 20 22 Blood Pressure 143/88 H 141/86 H Pulse Oximetry 96 95 10/02/17 18:00 10/02/17 19:20 10/02/17 20:00 Temperature 98.5 F Pulse Rate 94 H 108 H 107 H Respiratory Rate 18 24 Blood Pressure 149/87 H Pulse Oximetry 95 94 L 10/02/17 22:00 10/03/17 00:00 10/03/17 00:04 Temperature 98 F Pulse Rate 70 95 H Respiratory Rate 20 Blood Pressure 117/73 Pulse Oximetry 95 94 L 10/03/17 02:00 10/03/17 04:00 10/03/17 06:00 Temperature 98.3 F Pulse Rate 75 96 H 88 Respiratory Rate 22 Blood Pressure 120/65 Pulse Oximetry 92 L 10/03/17 07:35 10/03/17 08:00 10/03/17 10:00 Temperature Pulse Rate 98 H 110 H 107 H Respiratory Rate 24 Blood Pressure Pulse Oximetry 96 Intake & Output 10/02/17 10/03/17 10/03/17 18:59 06:59 18:59 Intake Total 1345 / 1345 1193 / 1193 Output Total 1400 / 1400 1100 / 1100 Balance -55 / -55 93 / 93 Weight 66.6 kg Intake: Tube Feeding 565 / 565 533 / 533 Tube Irrigant 180 / 180 60 / 60 Water Bolus Amount 600 / 600 600 / 600 Output: Stool 100 / 100 250 / 250 Urine Amount (Catheter) 1300 / 1300 850 / 850 Indwelling Urethral Catheter 1300 / 1300 850 / 850 Other: Date of Last Bowel Movement 10/02/17 10/02/17 10/02/17 - Constitutional cachectic - Routine HEENT Exam Head: Present: normocephalic Eye: Present: PERRL (Pupils 2mm slight reaction bilaterally.). Absent: conjunctival icterus ENT: Present: oropharynx clear - Routine Neck Exam Present: trachea midline (Trach in place on humidified O2 via trach collar.) - Routine Respiratory Exam Present: CTA bilaterally - Routine Cardiovascular Exam Present: RRR - Routine Abdominal Exam Present: soft, normoactive bowel sounds. Absent: tenderness, distended - Routine Extremities Exam Absent: cyanosis, edema - Routine Skin Exam Present: scars (Posterior cervical bandage intact and dry.). Absent: cyanosis, erythema - Routine Neurological Exam Present: motor deficit (In all 4 extremities. Some spontaneous left elbow flexion.) - Routine Psychiatric Exam Present: unable to assess - Urinary Catheter Management Indwelling Urethral Catheter Cath placed during this visit: yes Reason for continuing: Chronic Urinary Retention Insertion date: 08/20/17 Insertion time: 17:00 Assessment and Plan - Assessment (1) Cervical myelopathy Code(s): G95.9 - Disease of spinal cord, unspecified Status: Acute - Plan Impression: 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 s/p: C3-5 laminoplasty 09/19/17 Cervical Spine MRI 09/25/17 00:00 CONCLUSION: 1. Status post laminectomy at the C3-C5 levels. Surgical hardware seen at the posterior elements at these levels. 2. Moderate stenosis at the C4-C5 level secondary to disc bulge and central disc protrusion. There is abnormal signal again seen within the cord. The cord appears small this region. This likely secondary to myelomalacia. 3. Mild to moderate narrowing of the thecal sac at the C5-C6 and C6-C7 level. 4. Neural foraminal narrowing throughout the cervical spine as described above. Plan: Primary & critical care management per Appeals Board Referee. Palliative Care following. cont [place] J cervical collar at all times. Continue with SCDs.
--- NOTE | 2017-10-03 11:34 | P.DIET ---
Nutritional Evaluation Type of nutrition evaluation: follow-up Nutrition consult regarding: Tube Feeding (09/11 MDC for TFing) Nutrition screening: Pressure Injury (Pressure Ulcer Screen received 09/07. ) Subjective Subjective Comments: Pt speaks only Mandarin. Objective - Diagnosis Pulmonary Mass, Pulmonary Infiltrates - Objective % IBW: 132 (IBW = 118#) Body Weight Used for Calculations: Upper end of IBW (59 kg) Energy Needs - Lower Range (kCal/kg): 30 Energy Needs - Upper Range (kCal/kg): 35 Lower Limit kCal/kg (kCals): 1,770 Upper Limit kCal/kg (kCals): 2,065 Lower Limit Protein Factor (Grams per Kg): 1.2 Upper Limit Protein Factor (Grams per Kg): 1.5 Lower Protein Needs (Protein): 71 Upper Protein Needs (Protein): 89 Dietitian Reviewed in Medical Record: Curent medications, Intake & Output, Labs , Medical history, Tube feeding, Wound/DTI Diet Order: TFing only Objective Comments: Hx includes HTN, DM, Gout, 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 He has been tolerating TF of Glucerna 1.5 @ 55 mls/hr and this adequately meets estimated needs. Nurse's Wound/Pressure Injury Assessment indicates ongoing upper lip pressure injury. Pt is functionally quadriparetic. CBW = 66.6. LBM 10/02. Recommendations: Continue Glucerna 1.5 @ 55 mls/hr goal Dietitian to Monitor: Lab values, Intake & Output, Tube feeding tolerance, Weight change, Wound/skin status, Medical course
--- NOTE | 2017-10-03 14:06 | P.PNIM ---
Subjective Interval history: No overnight events, mental status a little better today, more awake, does not follow any commands but also has a language barrier. Moves left upper extremity spontaneously. Afebrile. Physical Exam Vital signs: Vital Signs 10/02/17 16:00 10/02/17 18:00 10/02/17 19:20 Temperature 98.6 F Pulse Rate 94 H 94 H 108 H Respiratory Rate 22 18 Blood Pressure 141/86 H Pulse Oximetry 95 95 10/02/17 20:00 10/02/17 22:00 10/03/17 00:00 Temperature 98.5 F 98 F Pulse Rate 107 H 70 95 H Respiratory Rate 24 20 Blood Pressure 149/87 H 117/73 Pulse Oximetry 94 L 95 10/03/17 00:04 10/03/17 02:00 10/03/17 04:00 Temperature 98.3 F Pulse Rate 75 96 H Respiratory Rate 22 Blood Pressure 120/65 Pulse Oximetry 94 L 92 L 10/03/17 06:00 10/03/17 07:35 10/03/17 08:00 Temperature 98.4 F Pulse Rate 88 98 H 106 H Respiratory Rate 24 27 H Blood Pressure 134/72 Pulse Oximetry 96 94 L 10/03/17 10:00 10/03/17 12:00 Temperature Pulse Rate 107 H 67 Respiratory Rate Blood Pressure Pulse Oximetry Intake & Output 10/02/17 10/03/17 10/03/17 18:59 06:59 18:59 Intake Total 1345 / 1345 1193 / 1193 Output Total 1400 / 1400 1100 / 1100 Balance -55 / -55 93 / 93 Weight 66.6 kg Intake: Tube Feeding 565 / 565 533 / 533 Tube Irrigant 180 / 180 60 / 60 Water Bolus Amount 600 / 600 600 / 600 Output: Stool 100 / 100 250 / 250 Urine Amount (Catheter) 1300 / 1300 850 / 850 Indwelling Urethral Catheter 1300 / 1300 850 / 850 Other: Date of Last Bowel Movement 10/02/17 10/02/17 10/02/17 Narrative: GENERAL: 77-year-old male currently on t-piece via trach. NECK: Trachea midline. Trach site with minimal drainage. CARDIOVASCULAR: normal rate, regular rhythm. LUNGS: Coarse rhonchi appreciated bilaterally. Poor effort. GASTROINTESTINAL: Abdomen soft, non-tender, nondistended. No guarding. MUSCULOSKELETAL: Extremities without significant peripheral edema. Well perfused. NEUROLOGICAL: Asleep, with spontaneous eye opening, moving left upper extremity spontaneously. Does not follow any commands but could be from language barrier. - Urinary Catheter Management Indwelling Urethral Catheter Cath placed during this visit: yes Reason for continuing: Chronic Urinary Retention Insertion date: 08/20/17 Insertion time: 17:00 Results - Labs CBC & Chem 7: 10/04/17 06:18 10/04/17 06:18 Laboratory Results - last 24 hr 10/02/17 10/02/17 10/03/17 16:14 20:08 00:33 WBC RBC Hgb Hct MCV MCH MCHC RDW Plt Count MPV Sodium Potassium Chloride Carbon Dioxide Anion Gap BUN Creatinine Estimated GFR POC Glucose 244 H 131 H 127 H Random Glucose Calcium 10/03/17 10/03/17 10/03/17 04:07 04:07 09:08 WBC 7.7 RBC 3.54 L Hgb 10.5 L Hct 32.4 L MCV 91.6 MCH 29.8 MCHC 32.5 RDW 20.7 H Plt Count 154 MPV 7.9 Sodium 138 Potassium 4.2 Chloride 102 Carbon Dioxide 31.2 Anion Gap 5 BUN 37 H Creatinine 0.42 L Estimated GFR Greater than 89 POC Glucose 167 H Random Glucose 101 Calcium 8.3 L Assessment and Plan - Plan This is a 77-year-old [place]ian male admitted 08/21/2017, with history of hypertension, gout and diabetes mellitus presenting initially with intermittent pain in his groin, upper thorax and around his back. CT angiogram showed bilateral emphysema and pulmonary nodules with compressive atelectasis of the right lower lobe. Biopsy was done which showed chronic inflammation reactive fibroblastic tissue. Patient was also found to have severe spinal stenosis, status post laminectomy. Patient's hospital stay was complicated by septic shock secondary to healthcare associated pneumonia and C. difficile colitis. Severe cervical spinal stenosis, status post C2 hemilaminectomy, C3 through 5 lamina plasty with quadriplegia and acute spinal injury. Toxic metabolic encephalopathy. - MRI C-spine 09/15: Focal severe spinal canal stenosis at C4-5. Moderate diffuse broad-based bulging at C3-4 with some mild increased signal in the spinal cord at this level. Moderate spinal canal stenosis at C6-C7 Bilateral facet arthritis at multiple levels. Head CT 08/23: 2 questionable tiny focal hemorrhages. MRI of brain 08/26 chronic small vessel ischemic and atrophic changes - EEG 09/03 revealed severe encephalopathy. No epileptiform activity - Neurosurgery Dr. Victor consulted, Poor chance of neurological recovery for him , recent discussion with Dr. Smith and son, no further surgical intervention per son. - Neurology Dr. Carvalho. Per his recommendations was placed on high dose solumedrol 250 mg every 6 hours tapered now to 40 mg once daily from 09/29. Will discuss with Dr. Carvalho prior to stopping. -Continue Tylenol, oxycodone, morphine, physical therapy. Uncontrolled hypertension, Atherosclerotic coronary artery disease, Atrial fibrillation -Continue metoprolol and digoxin, previously on amiodarone was stopped because of bradycardia. Acute, now chronic hypoxic hypercapnic respiratory failure secondary to COPD exacerbation, Trach site infection, Bilateral pleural effusion/status post chest tube right- sided transudative in nature. Chest tube removed 09/04 Multiple bilateral pulmonary masses vs infiltrate, RML mass vs consolidation -CT pulmonary angiogram revealed multiple masses. Lung mass biopsied on August 28 showed CHRONIC INFLAMMATORY AND REACTIVE FIBROBLASTIC TISSUE CONTAINING ENTRAPPED BENIGN EPITHELIUM, plan is reconsult IR 09/08 for repeat biopsy however patient is not stable. - Followed by Dr. Hardy/pulmonology. Reconsulted 09/08, recommended repeat CT in 4 weeks and to hold off IR guided biopsy due to respiratory and neuro status. s/p percutaneous tracheostomy 09/08 (Michellea/Michael), Status post thoracentesis left side 09/09 with 1 L fluid removed. No evidence of infection. Chest tubes removed 09/04/2017. -Continue T-piece, continue budesonide, DuoNeb's, Levsin for secretions Hypoalbuminemia Acute protein calorie malnutrition -severe -s/p PEG 09/11. Tolerating tube feeds with Glucerna 1.5 at 55 cc an hour, free water flushes 300 cc every 6 hours Urinary retention, possible urinary stricture Acute kidney injury Maintain Larson catheter. Monitor urine output, Accurate I's and O's, significant difficulty due to obstruction which may be urethral stricture which prevented serial i/o Diabetes mellitus Sliding scale insulin with NovoLog high regimen to maintain euglycemia. Currently on insulin detemir 10 units subq twice daily Severe sepsis - resolved Trach site infection - resolved Healthcare associated pneumonia - resolved C. difficile colitis Status post bronchoscopy 09/03 cultures negative Blood culture from 08/20/ 08/26 no growth to date Sputum 09/05 no growth Influenza a and B negative 09/07 Bronchial wash negative Appreciate ID input. PO vancomycin completed 09/30. FEN: Hypernatremia - resolved Prophylaxis -GI -lansoprazole. DVT -SCD/heparin subcutaneous Disposition: This gentleman remains weak and debilitated, functionally quadriparetic. Long-term prognosis for a meaningful recovery is quite poor. The best we can probably hope for is a skilled facility, continue t-piece trials and now working towards placement. Patient awaiting bed at the long- term vent unit. Alternative Code Candidate for ALC once consultants have signed off.
[2017-10-03] MEDS: ALPRAZolam 0.25 MG Tablet PO PRN (22:35)
[2017-10-04] MEDS: Morphine Inj 4 MG/ML Vial IV.PUSH PRN ×5 (00:38→22:06)
[2017-10-04] MEDS: Oral Hygiene Kit OROPHARYNG SCH ×4 (00:39→17:53)
[2017-10-04] MEDS: Chlorhexidine Gluconate 2% 1 Pack (2 Cloths) TOPICAL SCH (03:47)
[2017-10-04] MEDS: Insulin NovoLOG Aspart Correctional Sugar Inj SQ SCH ×4 (03:47→20:24)
[2017-10-04] MEDS: Artificial Tears Opth Drops 15 ML Bottle EACH EYE SCH ×3 (06:22→21:19)
[2017-10-04 06:43] LABS: Hematocrit 36.6 % (39.0-51.0); Hemoglobin 11.9 gm/dL (13.0-17.0); Mean Corpuscular HGB Conc 32.4 % (32.0-36.0); Mean Corpuscular Hemoglobin 29.9 pg (27.0-34.0); Mean Corpuscular Volume 92.5 fL (80.0-100.0); Mean Platelet Volume 7.4 fL (7.0-11.0); Platelet Count 185 th/mm3 (150-450); Red Blood Count 3.96 mil/mm3 (4.50-5.90); Red Cell Distribution Width 20.7 % (11.6-17.2); White Blood Count 5.9 th/mm3 (4.0-11.0)
[2017-10-04 07:08] LABS: Anion Gap 9 meq/L (5-15); Blood Urea Nitrogen 36 mg/dL (7-18); Calcium 8.9 mg/dL (8.5-10.1); Carbon Dioxide 34.4 meq/L (21.0-32.0); Chloride 99 meq/L (98-107); Glomerular Filtration Rate Greater Than 89 mL/min (>89); Glucose,Random 112 mg/dL (74-106); Sodium 142 meq/L (136-145)
--- NOTE | 2017-10-04 08:36 | P.PNNS ---
Subjective Interval history: Pt more awake and alert this morning. Not following commands. He nods no to questions. Denies pain. Spontaneously moves left arm at elbow but not moving fingers or following commands. Physical Exam Vital signs: Vital Signs 10/03/17 10:00 10/03/17 12:00 10/03/17 14:00 Temperature 98.7 F Pulse Rate 107 H 82 87 Respiratory Rate 25 H Blood Pressure 108/62 Pulse Oximetry 99 10/03/17 16:00 10/03/17 18:00 10/03/17 19:46 Temperature 98.2 F Pulse Rate 84 87 89 Respiratory Rate 25 H 16 Blood Pressure 99/64 L Pulse Oximetry 99 10/03/17 19:47 10/03/17 20:00 10/03/17 22:00 Temperature 97.6 F Pulse Rate 86 93 H Respiratory Rate 28 H Blood Pressure 99/55 L Pulse Oximetry 96 99 10/04/17 00:00 10/04/17 01:32 10/04/17 02:00 Temperature 98.1 F Pulse Rate 66 76 Respiratory Rate 20 Blood Pressure 100/60 Pulse Oximetry 100 95 10/04/17 03:52 10/04/17 03:55 10/04/17 04:00 Temperature 97.6 F Pulse Rate 94 H Respiratory Rate 25 H Blood Pressure 99/54 L Pulse Oximetry 92 L 92 L 96 10/04/17 06:00 10/04/17 08:07 10/04/17 08:08 Temperature Pulse Rate 100 H 105 H Respiratory Rate 20 Blood Pressure Pulse Oximetry 93 L Intake & Output 10/03/17 10/04/17 10/04/17 18:59 06:59 18:59 Intake Total 1248 / 1248 1131 / 1131 Output Total 1200 / 1200 1050 / 1050 Balance 48 / 48 81 / 81 Weight 65.3 kg Intake: Oral 0 / 0 Tube Feeding 618 / 618 531 / 531 Tube Irrigant 30 / 30 Water Bolus Amount 600 / 600 600 / 600 Anesthesia Amount 0 / 0 Other 0 / 0 Output: Stool 600 / 600 Urine Amount (Catheter) 1200 / 1200 450 / 450 Indwelling Urethral Catheter 1200 / 1200 450 / 450 Other: Date of Last Bowel Movement 10/02/17 10/02/17 # Bowel Movements 0 # Incontinent Bowel Movements 0 - Constitutional no acute distress, thin - Routine HEENT Exam Head: Present: normocephalic Eye: Present: PERRL (Pupils 3mm bilaterally slight reaction bilaterally.). Absent: conjunctival icterus - Routine Neck Exam Present: trachea midline (Trach in place on humidified O2 via T piece.) - Routine Respiratory Exam Present: CTA bilaterally (Trach in place on humidified O2 via t-piece.) - Routine Cardiovascular Exam Present: RRR, S1, S2. Absent: murmur - Routine Abdominal Exam Present: soft, normoactive bowel sounds. Absent: tenderness, distended - Routine Extremities Exam Absent: cyanosis, edema - Routine Skin Exam Absent: cyanosis, erythema - Routine Neurological Exam Present: alert, motor deficit (Spontaneous movement at left elbow. Not moving hand or proximal LUE. Not moving RUE or LEs.) - Routine Psychiatric Exam Present: unable to assess - Urinary Catheter Management Indwelling Urethral Catheter Cath placed during this visit: yes Reason for continuing: Chronic Urinary Retention Insertion date: 08/20/17 Insertion time: 17:00 Assessment and Plan - Assessment (1) Cervical myelopathy Code(s): G95.9 - Disease of spinal cord, unspecified Status: Acute - Plan Impression: 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 s/p: C3-5 laminoplasty 09/19/17 Cervical Spine MRI 09/25/17 00:00 CONCLUSION: 1. Status post laminectomy at the C3-C5 levels. Surgical hardware seen at the posterior elements at these levels. 2. Moderate stenosis at the C4-C5 level secondary to disc bulge and central disc protrusion. There is abnormal signal again seen within the cord. The cord appears small this region. This likely secondary to myelomalacia. 3. Mild to moderate narrowing of the thecal sac at the C5-C6 and C6-C7 level. 4. Neural foraminal narrowing throughout the cervical spine as described above. Plan: Primary & critical care management per [facility]. Palliative Care following. cont [place] J cervical collar at all times. Continue with SCDs.
[2017-10-04] MEDS: MethylPREDNISolone Sod Succinate Inj 40 MG/ML Vial IV.PUSH SCH (09:21)
[2017-10-04] MEDS: Chlorhexidine 0.12% Oral Kit 15 ML UDC SWISH-SPIT SCH ×2 (09:22→20:23)
[2017-10-04] MEDS: Beneprotein Powder Packet G-TUBE SCH ×3 (09:22→17:53)
[2017-10-04] MEDS: Insulin Detemir Inj 1,000 UNIT/10 ML Vial SQ SCH ×2 (09:22→20:23)
[2017-10-04] MEDS: ALPRAZolam 0.25 MG Tablet PO PRN ×2 (09:23→21:19)
[2017-10-04] MEDS: Metoprolol Tartrate 50 MG Tablet PO SCH ×2 (09:23→20:23)
[2017-10-04] MEDS: Senna/Docusate Sodium 8.6/50 MG Tablet PO SCH ×2 (09:24→20:23)
--- NOTE | 2017-10-04 13:52 | P.PNIM ---
Subjective Interval history: No overnight events, mental status about the same, moves extremities on the left spontaneously. Physical Exam Vital signs: Vital Signs 10/03/17 14:00 10/03/17 16:00 10/03/17 18:00 Temperature 98.2 F Pulse Rate 87 84 87 Respiratory Rate 25 H Blood Pressure 99/64 L Pulse Oximetry 99 10/03/17 19:46 10/03/17 19:47 10/03/17 20:00 Temperature 97.6 F Pulse Rate 89 86 Respiratory Rate 16 28 H Blood Pressure 99/55 L Pulse Oximetry 96 99 10/03/17 22:00 10/04/17 00:00 10/04/17 01:32 Temperature 98.1 F Pulse Rate 93 H 66 Respiratory Rate 20 Blood Pressure 100/60 Pulse Oximetry 100 95 10/04/17 02:00 10/04/17 03:52 10/04/17 03:55 Temperature Pulse Rate 76 Respiratory Rate Blood Pressure Pulse Oximetry 92 L 92 L 10/04/17 04:00 10/04/17 06:00 10/04/17 08:00 Temperature 97.6 F 98.2 F Pulse Rate 94 H 100 H 102 H Respiratory Rate 25 H 26 H Blood Pressure 99/54 L 107/61 Pulse Oximetry 96 93 L 10/04/17 08:07 10/04/17 08:08 10/04/17 12:00 Temperature 98.7 F Pulse Rate 105 H 81 Respiratory Rate 20 20 Blood Pressure 120/58 L Pulse Oximetry 93 L 94 L Intake & Output 10/03/17 10/04/17 10/04/17 18:59 06:59 18:59 Intake Total 1248 / 1248 1131 / 1131 Output Total 1200 / 1200 1050 / 1050 Balance 48 / 48 81 / 81 Weight 65.3 kg Intake: Oral 0 / 0 Tube Feeding 618 / 618 531 / 531 Tube Irrigant 30 / 30 Water Bolus Amount 600 / 600 600 / 600 Anesthesia Amount 0 / 0 Other 0 / 0 Output: Stool 600 / 600 Urine Amount (Catheter) 1200 / 1200 450 / 450 Indwelling Urethral Catheter 1200 / 1200 450 / 450 Other: Date of Last Bowel Movement 10/02/17 10/02/17 # Bowel Movements 0 # Incontinent Bowel Movements 0 Narrative: GENERAL: 77-year-old male currently on t-piece via trach. NECK: Trachea midline. Trach site with minimal drainage. CARDIOVASCULAR: normal rate, regular rhythm. LUNGS: Coarse rhonchi appreciated bilaterally. Poor effort. GASTROINTESTINAL: Abdomen soft, non-tender, nondistended. No guarding. MUSCULOSKELETAL: Extremities without significant peripheral edema. Well perfused. NEUROLOGICAL: Asleep, with spontaneous eye opening, moving left upper extremity spontaneously. Does not follow any commands but could be from language barrier. - Urinary Catheter Management Indwelling Urethral Catheter Cath placed during this visit: yes Reason for continuing: Chronic Urinary Retention Insertion date: 08/20/17 Insertion time: 17:00 Results - Labs CBC & Chem 7: 10/04/17 06:18 10/04/17 06:18 Laboratory Results - last 24 hr 10/03/17 10/04/17 10/04/17 20:00 03:13 06:18 WBC 5.9 RBC 3.96 L Hgb 11.9 L Hct 36.6 L MCV 92.5 MCH 29.9 MCHC 32.4 RDW 20.7 H Plt Count 185 MPV 7.4 Sodium Potassium Chloride Carbon Dioxide Anion Gap BUN Creatinine Estimated GFR POC Glucose 178 H 113 H Random Glucose Calcium 10/04/17 10/04/17 06:18 09:48 WBC RBC Hgb Hct MCV MCH MCHC RDW Plt Count MPV Sodium 142 Potassium 4.0 Chloride 99 Carbon Dioxide 34.4 H Anion Gap 9 BUN 36 H Creatinine 0.44 L Estimated GFR Greater than 89 POC Glucose 147 H Random Glucose 112 H Calcium 8.9 Assessment and Plan - Plan This is a 77-year-old Malay male admitted 08/21/2017, with history of hypertension, gout and diabetes mellitus presenting initially with intermittent pain in his groin, upper thorax and around his back. CT angiogram showed bilateral emphysema and pulmonary nodules with compressive atelectasis of the right lower lobe. Biopsy was done which showed chronic inflammation reactive fibroblastic tissue. Patient was also found to have severe spinal stenosis, status post laminectomy. Patient's hospital stay was complicated by septic shock secondary to healthcare associated pneumonia and C. difficile colitis. Severe cervical spinal stenosis, status post C2 hemilaminectomy, C3 through 5 lamina plasty with quadriplegia and acute spinal injury. Toxic metabolic encephalopathy. - MRI C-spine 09/15: Focal severe spinal canal stenosis at C4-5. Moderate diffuse broad-based bulging at C3-4 with some mild increased signal in the spinal cord at this level. Moderate spinal canal stenosis at C6-C7 Bilateral facet arthritis at multiple levels. Head CT 08/23: 2 questionable tiny focal hemorrhages. MRI of brain 08/26 chronic small vessel ischemic and atrophic changes - EEG 09/03 revealed severe encephalopathy. No epileptiform activity - Neurosurgery Dr. Victor consulted, Poor chance of neurological recovery for him , recent discussion with Dr. Smith and son, no further surgical intervention per son. - Neurology Dr. Carvalho. Per his recommendations was placed on high dose solumedrol 250 mg every 6 hours tapered now to 40 mg once daily from 09/29. Will discuss with Dr. Carvalho prior to stopping. -Continue Tylenol, oxycodone, morphine, physical therapy. Uncontrolled hypertension, Atherosclerotic coronary artery disease, Atrial fibrillation -Continue metoprolol and digoxin, previously on amiodarone was stopped because of bradycardia. Acute, now chronic hypoxic hypercapnic respiratory failure secondary to COPD exacerbation, Trach site infection, Bilateral pleural effusion/status post chest tube right- sided transudative in nature. Chest tube removed 09/04 Multiple bilateral pulmonary masses vs infiltrate, RML mass vs consolidation -CT pulmonary angiogram revealed multiple masses. Lung mass biopsied on August 28 showed CHRONIC INFLAMMATORY AND REACTIVE FIBROBLASTIC TISSUE CONTAINING ENTRAPPED BENIGN EPITHELIUM, plan is reconsult IR 09/08 for repeat biopsy however patient is not stable. - Followed by Dr. Hardy/pulmonology. Reconsulted 09/08, recommended repeat CT in 4 weeks and to hold off IR guided biopsy due to respiratory and neuro status. s/p percutaneous tracheostomy 09/08 (Biga/Michael), Status post thoracentesis left side 09/09 with 1 L fluid removed. No evidence of infection. Chest tubes removed 09/04/2017. -Continue T-piece, continue budesonide, DuoNeb's, Levsin for secretions Hypoalbuminemia Acute protein calorie malnutrition -severe -s/p PEG 09/11. Tolerating tube feeds with Glucerna 1.5 at 55 cc an hour, free water flushes 300 cc every 6 hours Urinary retention, possible urinary stricture Acute kidney injury Maintain Larson catheter. Monitor urine output, Accurate I's and O's, significant difficulty due to obstruction which may be urethral stricture which prevented serial i/o Diabetes mellitus Sliding scale insulin with NovoLog high regimen to maintain euglycemia. Currently on insulin detemir 10 units subq twice daily Severe sepsis - resolved Trach site infection - resolved Healthcare associated pneumonia - resolved C. difficile colitis Status post bronchoscopy 09/03 cultures negative Blood culture from 08/20/ 08/26 no growth to date Sputum 09/05 no growth Influenza a and B negative 09/07 Bronchial wash negative Appreciate ID input. PO vancomycin completed 09/30. FEN: Hypernatremia - resolved Prophylaxis -GI -lansoprazole. DVT -SCD/heparin subcutaneous Disposition: This gentleman remains weak and debilitated, functionally quadriparetic. Long-term prognosis for a meaningful recovery is quite poor. The best we can probably hope for is a skilled facility, continue t-piece trials and now working towards placement. Patient awaiting bed at the long- term vent unit. Alternative Code Candidate for ALC once consultants have signed off. No changes with management, discussed with nursing.
[2017-10-05] MEDS: Oral Hygiene Kit OROPHARYNG SCH ×5 (01:33→23:35)
[2017-10-05] MEDS: Insulin NovoLOG Aspart Correctional Sugar Inj SQ SCH ×4 (02:23→20:44)
[2017-10-05 04:37] LABS: Hematocrit 31.7 % (39.0-51.0); Hemoglobin 10.5 gm/dL (13.0-17.0); Mean Corpuscular HGB Conc 33.1 % (32.0-36.0); Mean Corpuscular Hemoglobin 30.3 pg (27.0-34.0); Mean Corpuscular Volume 91.5 fL (80.0-100.0); Mean Platelet Volume 7.3 fL (7.0-11.0); Platelet Count 173 th/mm3 (150-450); Red Blood Count 3.47 mil/mm3 (4.50-5.90); Red Cell Distribution Width 20.3 % (11.6-17.2); White Blood Count 6.2 th/mm3 (4.0-11.0)
[2017-10-05] MEDS: Chlorhexidine Gluconate 2% 1 Pack (2 Cloths) TOPICAL SCH (04:48)
[2017-10-05 05:02] LABS: Anion Gap 7 meq/L (5-15); Blood Urea Nitrogen 32 mg/dL (7-18); Calcium 8.7 mg/dL (8.5-10.1); Chloride 98 meq/L (98-107); Glomerular Filtration Rate Greater Than 89 mL/min (>89); Glucose,Random 82 mg/dL (74-106); Sodium 139 meq/L (136-145)
[2017-10-05] MEDS: Morphine Inj 4 MG/ML Vial IV.PUSH PRN ×2 (05:38→23:05)
[2017-10-05] MEDS: Artificial Tears Opth Drops 15 ML Bottle EACH EYE SCH ×3 (05:39→23:34)
[2017-10-05] MEDS: Chlorhexidine 0.12% Oral Kit 15 ML UDC SWISH-SPIT SCH ×2 (08:55→20:43)
[2017-10-05] MEDS: Insulin Detemir Inj 1,000 UNIT/10 ML Vial SQ SCH ×2 (08:55→20:43)
[2017-10-05] MEDS: Beneprotein Powder Packet G-TUBE SCH ×3 (08:55→17:29)
[2017-10-05] MEDS: ALPRAZolam 0.25 MG Tablet PO PRN (08:56)
[2017-10-05] MEDS: MethylPREDNISolone Sod Succinate Inj 40 MG/ML Vial IV.PUSH SCH (08:56)
[2017-10-05] MEDS: Metoprolol Tartrate 50 MG Tablet PO SCH ×2 (08:56→20:43)
[2017-10-05] MEDS: Senna/Docusate Sodium 8.6/50 MG Tablet PO SCH ×2 (08:57→20:43)
--- NOTE | 2017-10-05 12:18 | P.PNNS ---
Subjective Interval history: Pt awake. He follows by mimicking. No movement in LEs or RUE. Some spontaneous movement in Left upper extremity at elbow not hand or proximally. [place] J collar remains intact. Physical Exam Vital signs: Vital Signs 10/04/17 14:00 10/04/17 16:00 10/04/17 18:00 Temperature 98.9 F Pulse Rate 89 90 94 H Respiratory Rate 15 Blood Pressure 115/64 Pulse Oximetry 10/04/17 20:00 10/04/17 20:30 10/04/17 20:35 Temperature 98.1 F Pulse Rate 94 H 89 Respiratory Rate 24 24 Blood Pressure 120/74 Pulse Oximetry 96 10/04/17 22:00 10/05/17 00:00 10/05/17 02:00 Temperature 97.8 F Pulse Rate 62 73 96 H Respiratory Rate 20 Blood Pressure 104/56 L Pulse Oximetry 10/05/17 04:00 10/05/17 05:01 10/05/17 06:00 Temperature 98.3 F Pulse Rate 95 H 84 Respiratory Rate 22 Blood Pressure 146/79 H Pulse Oximetry 96 10/05/17 08:26 Temperature Pulse Rate 100 H Respiratory Rate 22 Blood Pressure Pulse Oximetry 94 L Intake & Output 10/04/17 10/05/17 10/05/17 18:59 06:59 18:59 Intake Total 1205 / 1205 1163 / 1163 Output Total 950 / 950 1300 / 1300 Balance 255 / 255 -137 / -137 Weight 62.4 kg Intake: Oral 0 / 0 Tube Feeding 605 / 605 563 / 563 Water Bolus Amount 600 / 600 600 / 600 Anesthesia Amount 0 / 0 Other 0 / 0 Output: Stool 200 / 200 200 / 200 Estimated Blood Loss 300 / 300 Urine Amount (Catheter) 750 / 750 800 / 800 Indwelling Urethral Catheter 750 / 750 800 / 800 Other: Date of Last Bowel Movement 10/02/17 10/05/17 # Bowel Movements 0 # Incontinent Bowel Movements 0 - Constitutional no acute distress, thin - Routine HEENT Exam Head: Present: normocephalic Eye: Present: PERRL (Pupils 3mm bilaterally slight reaction bilaterally.). Absent: conjunctival icterus - Routine Respiratory Exam Present: patient mechanically ventilated, CTA bilaterally. Absent: rhonchi, wheezes (Trach in place.) - Routine Cardiovascular Exam Present: RRR, S1, S2. Absent: murmur - Routine Abdominal Exam Present: soft, normoactive bowel sounds. Absent: tenderness - Routine Skin Exam Present: intact. Absent: cyanosis, erythema - Routine Neurological Exam Present: alert, motor deficit (No movement in RUE or bilateral LEs. Some spontaneous movement in LUE at elbow.). Absent: moving all extremities - Routine Psychiatric Exam Present: unable to assess - Urinary Catheter Management Indwelling Urethral Catheter Cath placed during this visit: yes Reason for continuing: Chronic Urinary Retention Insertion date: 08/20/17 Insertion time: 17:00 Assessment and Plan - Assessment (1) Cervical myelopathy Code(s): G95.9 - Disease of spinal cord, unspecified Status: Acute - Plan Impression: 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 s/p: C3-5 laminoplasty 09/19/17 Cervical Spine MRI 09/25/17 00:00 CONCLUSION: 1. Status post laminectomy at the C3-C5 levels. Surgical hardware seen at the posterior elements at these levels. 2. Moderate stenosis at the C4-C5 level secondary to disc bulge and central disc protrusion. There is abnormal signal again seen within the cord. The cord appears small this region. This likely secondary to myelomalacia. 3. Mild to moderate narrowing of the thecal sac at the C5-C6 and C6-C7 level. 4. Neural foraminal narrowing throughout the cervical spine as described above. Plan: Primary & critical care management per Health Policy Manager. Palliative Care following. cont [place] J cervical collar at all times. Continue with SCDs.
--- NOTE | 2017-10-05 13:36 | P.PNIM ---
Subjective Interval history: no overnight events, discussed with family, afebrile, moves left upper extremity on command. Per family still complaining of low back pain. Physical Exam Vital signs: Vital Signs 10/04/17 14:00 10/04/17 16:00 10/04/17 18:00 Temperature 98.9 F Pulse Rate 89 90 94 H Respiratory Rate 15 Blood Pressure 115/64 Pulse Oximetry 10/04/17 20:00 10/04/17 20:30 10/04/17 20:35 Temperature 98.1 F Pulse Rate 94 H 89 Respiratory Rate 24 24 Blood Pressure 120/74 Pulse Oximetry 96 10/04/17 22:00 10/05/17 00:00 10/05/17 02:00 Temperature 97.8 F Pulse Rate 62 73 96 H Respiratory Rate 20 Blood Pressure 104/56 L Pulse Oximetry 10/05/17 04:00 10/05/17 05:01 10/05/17 06:00 Temperature 98.3 F Pulse Rate 95 H 84 Respiratory Rate 22 Blood Pressure 146/79 H Pulse Oximetry 96 10/05/17 08:26 Temperature Pulse Rate 100 H Respiratory Rate 22 Blood Pressure Pulse Oximetry 94 L Intake & Output 10/04/17 10/05/17 10/05/17 18:59 06:59 18:59 Intake Total 1205 / 1205 1163 / 1163 Output Total 950 / 950 1300 / 1300 Balance 255 / 255 -137 / -137 Weight 62.4 kg Intake: Oral 0 / 0 Tube Feeding 605 / 605 563 / 563 Water Bolus Amount 600 / 600 600 / 600 Anesthesia Amount 0 / 0 Other 0 / 0 Output: Stool 200 / 200 200 / 200 Estimated Blood Loss 300 / 300 Urine Amount (Catheter) 750 / 750 800 / 800 Indwelling Urethral Catheter 750 / 750 800 / 800 Other: Date of Last Bowel Movement 10/02/17 10/05/17 # Bowel Movements 0 # Incontinent Bowel Movements 0 Narrative: GENERAL: 77-year-old male currently on t-piece via trach. NECK: Trachea midline. Trach site with minimal drainage. CARDIOVASCULAR: normal rate, regular rhythm. LUNGS: Coarse rhonchi appreciated bilaterally. Poor effort. GASTROINTESTINAL: Abdomen soft, non-tender, nondistended. No guarding. MUSCULOSKELETAL: Extremities without significant peripheral edema. Well perfused. NEUROLOGICAL: Awake, with spontaneous eye opening, moves left upper extremity spontaneously. Follows commands when spoken to in Mandarin, lifts left upper extremity, good handgrip, closes eyes. - Urinary Catheter Management Indwelling Urethral Catheter Cath placed during this visit: yes Reason for continuing: Chronic Urinary Retention Insertion date: 08/20/17 Insertion time: 17:00 Results - Labs CBC & Chem 7: 10/05/17 01:41 10/05/17 01:41 Laboratory Results - last 24 hr 10/04/17 10/04/17 10/05/17 15:25 19:39 01:36 WBC RBC Hgb Hct MCV MCH MCHC RDW Plt Count MPV Sodium Potassium Chloride Carbon Dioxide Anion Gap BUN Creatinine Estimated GFR POC Glucose 158 H 142 H 112 H Random Glucose Calcium 10/05/17 10/05/17 10/05/17 01:41 01:41 07:49 WBC 6.2 RBC 3.47 L Hgb 10.5 L Hct 31.7 L MCV 91.5 MCH 30.3 MCHC 33.1 RDW 20.3 H Plt Count 173 MPV 7.3 Sodium 139 Potassium 4.0 Chloride 98 Carbon Dioxide 34.0 H Anion Gap 7 BUN 32 H Creatinine 0.40 L Estimated GFR Greater than 89 POC Glucose 79 Random Glucose 82 Calcium 8.7 Assessment and Plan - Plan This is a 77-year-old [place] male admitted 08/21/2017, with history of hypertension, gout and diabetes mellitus presenting initially with intermittent pain in his groin, upper thorax and around his back. CT angiogram showed bilateral emphysema and pulmonary nodules with compressive atelectasis of the right lower lobe. Biopsy was done which showed chronic inflammation reactive fibroblastic tissue. Patient was also found to have severe spinal stenosis, status post laminectomy. Patient's hospital stay was complicated by septic shock secondary to healthcare associated pneumonia and C. difficile colitis. Severe cervical spinal stenosis, status post C2 hemilaminectomy, C3 through 5 lamina plasty with quadriplegia and acute spinal injury. Toxic metabolic encephalopathy. - MRI C-spine 09/15: Focal severe spinal canal stenosis at C4-5. Moderate diffuse broad-based bulging at C3-4 with some mild increased signal in the spinal cord at this level. Moderate spinal canal stenosis at C6-C7 Bilateral facet arthritis at multiple levels. Head CT 08/23: 2 questionable tiny focal hemorrhages. MRI of brain 08/26 chronic small vessel ischemic and atrophic changes - EEG 09/03 revealed severe encephalopathy. No epileptiform activity - Neurosurgery Dr. Victor consulted, Poor chance of neurological recovery for him , recent discussion with Dr. Smith and son, no further surgical intervention per son. - Neurology Dr. Carvalho. Per his recommendations was placed on high dose solumedrol 250 mg every 6 hours tapered now to 40 mg once daily from 09/29. Will discuss with Dr. Carvalho prior to stopping. -Continue Tylenol, oxycodone, morphine, physical therapy. Uncontrolled hypertension, Atherosclerotic coronary artery disease, Atrial fibrillation -Continue metoprolol and digoxin, previously on amiodarone was stopped because of bradycardia. Acute, now chronic hypoxic hypercapnic respiratory failure secondary to COPD exacerbation, Trach site infection, Bilateral pleural effusion/status post chest tube right- sided transudative in nature. Chest tube removed 09/04 Multiple bilateral pulmonary masses vs infiltrate, RML mass vs consolidation -CT pulmonary angiogram revealed multiple masses. Lung mass biopsied on August 28 showed CHRONIC INFLAMMATORY AND REACTIVE FIBROBLASTIC TISSUE CONTAINING ENTRAPPED BENIGN EPITHELIUM, plan is reconsult IR 09/08 for repeat biopsy however patient is not stable. - Followed by Dr. Hardy/pulmonology. Reconsulted 09/08, recommended repeat CT in 4 weeks and to hold off IR guided biopsy due to respiratory and neuro status. s/p percutaneous tracheostomy 09/08 (Bryant/Michael), Status post thoracentesis left side 09/09 with 1 L fluid removed. No evidence of infection. Chest tubes removed 09/04/2017. -Continue T-piece, continue budesonide, DuoNeb's, Levsin for secretions, consult pulmonary for possible weaning/decannulation. Hypoalbuminemia Acute protein calorie malnutrition -severe -s/p PEG 09/11. Tolerating tube feeds with Glucerna 1.5 at 55 cc an hour, free water flushes 300 cc every 6 hours Urinary retention, possible urinary stricture Acute kidney injury Maintain Larson catheter. Monitor urine output, Accurate I's and O's, significant difficulty due to obstruction which may be urethral stricture which prevented serial i/o Diabetes mellitus Sliding scale insulin with NovoLog high regimen to maintain euglycemia. Currently on insulin detemir 10 units subq twice daily Severe sepsis - resolved Trach site infection - resolved Healthcare associated pneumonia - resolved C. difficile colitis Status post bronchoscopy 09/03 cultures negative Blood culture from 08/20/ 08/26 no growth to date Sputum 09/05 no growth Influenza a and B negative 09/07 Bronchial wash negative -Appreciate ID input. -PO vancomycin completed 09/30. FEN: Hypernatremia - resolved Prophylaxis -GI -lansoprazole. DVT -SCD/heparin subcutaneous Disposition: This gentleman remains weak and debilitated, functionally quadriparetic. Long-term prognosis for a meaningful recovery is quite poor. The best we can probably hope for is a skilled facility, continue t-piece trials and now working towards placement. Patient awaiting bed at the long- term vent unit. Alternative Code Candidate for ALC once consultants have signed off. Discussed with family today. Answered questions.
--- NOTE | 2017-10-05 20:49 | MB ---
cc: Nighat Garcia MD DATE: 10/05/2017 REASON FOR CONSULTATION: Respiratory failure, chronic, status post tracheostomy and PEG tube placement. HISTORY OF PRESENT ILLNESS: This is a 77-year-old [place] man who was initially admitted on 08/21/2017 with a history of hypertension, diabetes, gout and a history for back pain and respiratory failure. The patient apparently has a prior history of smoking for over 30 years and upon arrival in the hospital, a chest x-ray was done, which showed lung nodules and a CT angiogram which revealed emphysema, as well as bilateral lung nodules, the largest being 2.8 cm on the right side and 2.6 cm on the left chest. The patient was complaining of right upper quadrant pain radiating towards the back, but had no fevers, chills, no hemoptysis. The chest CT also showed evidence of a right pleural effusion, with pleural thickening anteriorly and an enlarged paratracheal lymph node and a small descending thoracic aneurysm. There was also atherosclerotic calcifications in the coronaries. He was evaluated by hematology and a lung biopsy was recommended. The patient went into progressive respiratory failure, was on BiPAP initially and later intubated, placed on ventilator support. On 08/24, the patient was hypotensive and in septic shock and the pleural fluid had to be drained with a chest tube and subsequently he received IV fluids, IV antibiotics, pressors and also had to be on propofol for ventilator control. Subsequent x-rays showed bilateral pulmonary infiltrates, as well as pleural effusions. The patient had a variable tenuous course through the next several days and his lung infiltrates continued to worsen for a few days, but then subsequently did improve with diuresis, antibiotic therapy and ventilator support. He was running fevers during this time and multiple cultures of the blood, trachea and urine were done. Chest tube was removed after 5 days and the patient remained intubated, on ventilator support and several CPAP trials were unsuccessful. Subsequently, the patient had to have a tracheostomy tube placed as well as a PEG tube for feeding. He had remained off sedation, but remained lethargic. On 09/15/2017, the patient was not moving his extremities even though was off sedation and there was a concern of quadriparesis and, thus, neurologic evaluation was conducted. Since the patient only had minimal activity of the left upper extremity, he was seen by neurology and further workup was begun, including a CT and MRI. Neurosurgery was consulted and the patient had to go for C2 hemilaminectomy and laminoplasty at C3-C5. Postoperatively, the patient was moving his upper extremities spontaneously and he was continued on ventilator support, but has had weakness of all his extremities through the next week. The patient since then has been weaned to CPAP and now on T-bar over the past 5 days and seems to be maintaining his saturations quite well, but he is severely deconditioned and unable to move much and he does not respond to any questions or commands. Over the past few days, his FiO2 has been weaned down and he remains on T-bar and his clinical condition is stable. The patient had a chest x-ray done which showed mild basilar infiltrates and no significant effusion. PAST MEDICAL HISTORY: As mentioned before, significant for hypertension, gout, diabetes, chronic obstructive lung disease, as well as pneumonia. ALLERGIES: NO DRUG ALLERGIES LISTED. HABITS: The patient apparently has a remote history of smoking. No significant alcohol use. REVIEW OF SYSTEMS: Unable to obtain. PHYSICAL EXAMINATION: GENERAL: This is elderly man is awake, pale. He has marked wasting of the extremities and weakness of all his extremities. SKIN: Turgor is diminished. VITAL SIGNS: Blood pressure is 110/60, pulse 92, respirations 16, temperature 97.5. HEENT: Pupils are reactive. Sclerae are clear. Throat is clear. He has no inflammation. NECK: No bruits. There is no venous distention. Trachea midline. CHEST: Equal movements, with diminished breath sounds in the bases, with occasional basilar crackles. CARDIOVASCULAR: The heart sounds are regular, S1 and S2. No murmur. ABDOMEN: Soft, nontender. No organomegaly. PEG tube in place. Bowel sounds are active. EXTREMITIES: Weakness of all extremities and Babinski equivocal. Skin was dry and cool. IMPRESSION: 1. Respiratory failure, resolving. 2. Status post C2 hemilaminectomy and C3-L5 laminoplasty for cervical spinal stenosis. 3. Quadriplegia. 4. Metabolic encephalopathy, resolving. 5. Hypertension, resolved. 6. Atrial fibrillation and ASHD 7. Diabetes. 8. Bilateral lung nodules. 9. Bilateral pleural effusions, resolved. PLAN: The patient will be maintained on a T-bar at 30% FiO2. IV steroids will be weaned down. We will continue with trach care with tracheal suctioning and lavage and physical therapy to be started for activity. Chest x-ray to be repeated, with CBC and basic metabolic profile. The patient will be maintained on antibiotic coverage per infectious disease service and further neurologic evaluation to be conducted as well. A Passy-Sobia valve will be placed if the patient can verbalize and tube feedings continued as ordered at 60 mL per hour. I will follow the case with you, Dr. Loyola. Thank you for this consultation. V. Laureen Garcia MD VCLAUDETTE/LISE , 05:44 PM , 08:48 PM [email or web address]
[2017-10-06] MEDS: Insulin NovoLOG Aspart Correctional Sugar Inj SQ SCH ×4 (02:04→21:47)
[2017-10-06] MEDS: Chlorhexidine Gluconate 2% 1 Pack (2 Cloths) TOPICAL SCH (04:07)
[2017-10-06] MEDS: Oral Hygiene Kit OROPHARYNG SCH ×3 (04:08→15:07)
[2017-10-06 05:07] LABS: Hematocrit 32.6 % (39.0-51.0); Hemoglobin 10.6 gm/dL (13.0-17.0); Mean Corpuscular HGB Conc 32.7 % (32.0-36.0); Mean Corpuscular Hemoglobin 30.1 pg (27.0-34.0); Mean Corpuscular Volume 92.2 fL (80.0-100.0); Mean Platelet Volume 7.4 fL (7.0-11.0); Platelet Count 172 th/mm3 (150-450); Red Blood Count 3.53 mil/mm3 (4.50-5.90); Red Cell Distribution Width 19.9 % (11.6-17.2)
[2017-10-06 05:10] LABS: Anion Gap 6 meq/L (5-15); Blood Urea Nitrogen 30 mg/dL (7-18); Calcium 8.6 mg/dL (8.5-10.1); Carbon Dioxide 36.1 meq/L (21.0-32.0); Chloride 98 meq/L (98-107); Glomerular Filtration Rate Greater Than 89 mL/min (>89); Glucose,Random 123 mg/dL (74-106); Potassium 4.1 meq/L (3.5-5.1); Sodium 140 meq/L (136-145)
[2017-10-06] MEDS: Artificial Tears Opth Drops 15 ML Bottle EACH EYE SCH ×3 (06:26→21:49)
--- NOTE | 2017-10-06 06:38 | XR ---
EXAM DATE: 10/06/2017 5:11 AM EDT AGE/SEX: 77 years / Male INDICATIONS: Follow up infiltrates. CLINICAL DATA: This is the patient's subsequent encounter. Patient reports that signs and symptoms h ave been present for 1 month and indicates a pain score of Nonresponsive. MEDICAL/SURGICAL HISTORY: . Hypertension. Diabetes mellitus type II. Emphysema. TB, Afib. None . COMPARISON: [facility] [place], CHEST 1V SINGLE AP, 09/22/2017. . FINDINGS: Bilateral patchy infiltrates with interstitial prominence, some of which may be chronic. Improving ri ght-sided effusion with persistent left basilar consolidation/effusion. Tracheostomy tube is stable i n position. CONCLUSION: 1. Patchy bilateral airspace and interstitial process some of which may be chronic. 2. Improving right-sided effusion and right basilar atelectasis. Persistent left basilar consolidati on/effusion Electronically signed by: Deven Flaherty MD 10/06/2017 6:37 AM EDT
[2017-10-06] MEDS: MethylPREDNISolone Sod Succinate Inj 40 MG/ML Vial IV.PUSH SCH (08:39)
[2017-10-06] MEDS: Insulin Detemir Inj 1,000 UNIT/10 ML Vial SQ SCH ×2 (08:39→21:48)
[2017-10-06] MEDS: Metoprolol Tartrate 50 MG Tablet PO SCH ×3 (08:40→21:48)
[2017-10-06] MEDS: Beneprotein Powder Packet G-TUBE SCH ×3 (08:41→17:50)
[2017-10-06] MEDS: Senna/Docusate Sodium 8.6/50 MG Tablet PO SCH (08:41)
[2017-10-06] MEDS: Chlorhexidine 0.12% Oral Kit 15 ML UDC SWISH-SPIT SCH ×2 (08:41→21:48)
--- NOTE | 2017-10-06 10:46 | P.PNIM ---
Subjective Interval history: no overnight events, BPs soft, still with lose stools, dignishield in place, afebrile. No change in MS> Physical Exam Vital signs: Vital Signs 10/05/17 12:00 10/05/17 14:00 10/05/17 16:00 Temperature 98.6 F 97.8 F Pulse Rate 87 82 90 Respiratory Rate 24 25 H Blood Pressure 118/67 143/74 H Pulse Oximetry 93 L 95 10/05/17 18:00 10/05/17 19:23 10/05/17 20:00 Temperature 98.3 F Pulse Rate 103 H 110 H 100 H Respiratory Rate 25 H 24 Blood Pressure 130/75 Pulse Oximetry 94 L 10/05/17 22:00 10/06/17 00:00 10/06/17 00:40 Temperature 98.3 F Pulse Rate 98 H 72 Respiratory Rate 17 Blood Pressure 94/56 L Pulse Oximetry 96 10/06/17 02:00 10/06/17 04:00 10/06/17 06:00 Temperature 98 F Pulse Rate 78 78 85 Respiratory Rate 17 Blood Pressure 110/66 Pulse Oximetry 10/06/17 07:33 10/06/17 08:00 10/06/17 10:00 Temperature 98.3 F Pulse Rate 93 H 96 H 75 Respiratory Rate 26 H 20 Blood Pressure 90/53 L Pulse Oximetry 93 L 97 Intake & Output 10/05/17 10/06/17 10/06/17 18:59 06:59 18:59 Intake Total 1253 / 1253 1122 / 1122 Output Total 1600 / 1600 1850 / 1850 Balance -347 / -347 -728 / -728 Weight 61.8 kg Intake: Oral 0 / 0 Tube Feeding 653 / 653 492 / 492 Tube Irrigant 30 / 30 Water Bolus Amount 600 / 600 600 / 600 Anesthesia Amount 0 / 0 Other 0 / 0 Output: Urine 800 / 800 Stool 100 / 100 Urine/Stool Mix 100 / 100 Urine Amount (Catheter) 1500 / 1500 950 / 950 Indwelling Urethral Catheter 1500 / 1500 950 / 950 Other: Other Intake Source Saline Solution Date of Last Bowel Movement 10/05/17 10/05/17 10/06/17 # Bowel Movements 0 # Incontinent Bowel Movements 0 Narrative: GENERAL: 77-year-old male currently on t-piece via trach. NECK: Trachea midline. Trach site with minimal drainage. CARDIOVASCULAR: normal rate, regular rhythm. LUNGS: Coarse rhonchi appreciated bilaterally. Poor effort. GASTROINTESTINAL: Abdomen soft, non-tender, nondistended. No guarding. MUSCULOSKELETAL: Extremities without significant peripheral edema. Well perfused. Dignishield in place. NEUROLOGICAL: Awake, with spontaneous eye opening, moves left upper extremity spontaneously. Follows commands when spoken to in Mandarin, lifts left upper extremity, good handgrip, closes eyes. - Urinary Catheter Management Indwelling Urethral Catheter Cath placed during this visit: yes Reason for continuing: Acute urinary retention Insertion date: 08/20/17 Insertion time: 17:00 Results - Labs CBC & Chem 7: 10/06/17 04:20 10/06/17 04:20 Laboratory Results - last 24 hr 10/05/17 10/05/17 10/06/17 13:36 19:56 01:49 WBC RBC Hgb Hct MCV MCH MCHC RDW Plt Count MPV Sodium Potassium Chloride Carbon Dioxide Anion Gap BUN Creatinine Estimated GFR POC Glucose 127 H 161 H 143 H Random Glucose Calcium 10/06/17 10/06/17 10/06/17 04:20 04:20 07:58 WBC 5.0 RBC 3.53 L Hgb 10.6 L Hct 32.6 L MCV 92.2 MCH 30.1 MCHC 32.7 RDW 19.9 H Plt Count 172 MPV 7.4 Sodium 140 Potassium 4.1 Chloride 98 Carbon Dioxide 36.1 H Anion Gap 6 BUN 30 H Creatinine 0.41 L Estimated GFR Greater than 89 POC Glucose 164 H Random Glucose 123 H Calcium 8.6 - Imaging Impressions Chest X-Ray 10/06/17 00:00 CONCLUSION: 1. Patchy bilateral airspace and interstitial process some of which may be chronic. 2. Improving right-sided effusion and right basilar atelectasis. Persistent left basilar consolidation/effusion Assessment and Plan - Plan This is a 77-year-old [place] male admitted 08/21/2017, with history of hypertension, gout and diabetes mellitus presenting initially with intermittent pain in his groin, upper thorax and around his back. CT angiogram showed bilateral emphysema and pulmonary nodules with compressive atelectasis of the right lower lobe. Biopsy was done which showed chronic inflammation reactive fibroblastic tissue. Patient was also found to have severe spinal stenosis, status post laminectomy. Patient's hospital stay was complicated by septic shock secondary to healthcare associated pneumonia and C. difficile colitis. Severe cervical spinal stenosis, status post C2 hemilaminectomy, C3 through 5 lamina plasty with quadriplegia and acute spinal injury. Toxic metabolic encephalopathy. - MRI C-spine 09/15: Focal severe spinal canal stenosis at C4-5. Moderate diffuse broad-based bulging at C3-4 with some mild increased signal in the spinal cord at this level. Moderate spinal canal stenosis at C6-C7 Bilateral facet arthritis at multiple levels. Head CT 08/23: 2 questionable tiny focal hemorrhages. MRI of brain 08/26 chronic small vessel ischemic and atrophic changes. EEG 09/03 revealed severe encephalopathy. No epileptiform activity - Neurosurgery Dr. Victor consulted, Poor chance of neurological recovery for him , recent discussion with Dr. Smith and son, no further surgical intervention per son. - Neurology Dr. Carvalho. Per his recommendations was placed on high dose solumedrol 250 mg every 6 hours, d/w Dr. Carvalho, taper steroids to off over 2-3 weeks. Will switch to oral today and taper accordingly. - Continue Tylenol, oxycodone, morphine, physical therapy. Uncontrolled hypertension, Atherosclerotic coronary artery disease, Atrial fibrillation -Continue metoprolol and digoxin, previously on amiodarone was stopped because of bradycardia. BP is better, in fact soft, decrease metoprolol to 25 mg BID Acute, now chronic hypoxic hypercapnic respiratory failure secondary to COPD exacerbation, Trach site infection, Bilateral pleural effusion/status post chest tube right- sided transudative in nature. Chest tube removed 09/04 Multiple bilateral pulmonary masses vs infiltrate, RML mass vs consolidation -CT pulmonary angiogram revealed multiple masses. Lung mass biopsied on August 28 showed CHRONIC INFLAMMATORY AND REACTIVE FIBROBLASTIC TISSUE CONTAINING ENTRAPPED BENIGN EPITHELIUM, plan is reconsult IR 09/08 for repeat biopsy however patient is not stable. - Followed by Dr. Hardy/pulmonology. Reconsulted 09/08, recommended repeat CT in 4 weeks and to hold off IR guided biopsy due to respiratory and neuro status. s/p percutaneous tracheostomy 09/08 (Biga/Michael), Status post thoracentesis left side 09/09 with 1 L fluid removed. No evidence of infection. Chest tubes removed 09/04/2017. -Continue T-piece, continue budesonide, DuoNeb's, Levsin for secretions - Pulmonary consulted for decannulation, CXR still shows bilateral infiltrates, keep on T-bar at 30%, decannulation per pulmonary. PMV ang pulmonary. Hypoalbuminemia Acute protein calorie malnutrition -severe -s/p PEG 09/11. Tolerating tube feeds with Glucerna 1.5 at 55 cc an hour, free water flushes 300 cc every 6 hours Urinary retention, possible urinary stricture Acute kidney injury Maintain Larson catheter. Monitor urine output, Accurate I's and O's, significant difficulty due to obstruction which may be urethral stricture which prevented serial i/o Diabetes mellitus Sliding scale insulin with NovoLog high regimen to maintain euglycemia. Currently on insulin detemir 10 units subq twice daily Severe sepsis - resolved Trach site infection - resolved Healthcare associated pneumonia - resolved C. difficile colitis - resolved. - Status post bronchoscopy 09/03 cultures negative, Appreciate ID input. PO vancomycin completed 09/30. Still with lose stools, d/c stool softeners, leukocytosis resolved. FEN: Hypernatremia - resolved Prophylaxis -GI -lansoprazole. DVT -SCD/heparin subcutaneous Disposition: This gentleman remains weak and debilitated, functionally quadriparetic. Long-term prognosis for a meaningful recovery is quite poor. The best we can probably hope for is a skilled facility, continue t-piece trials and now working towards placement and decanulation. Patient awaiting bed at the long-term vent unit. Alternative Code Candidate for ALC once consultants have signed off.
--- NOTE | 2017-10-06 10:53 | P.PNNS ---
Subjective Interval history: 10/06: reports some minimal movement right upper, otherwise no significant changes to neuro checks Physical Exam Vital signs: Vital Signs 10/05/17 12:00 10/05/17 14:00 10/05/17 16:00 Temperature 98.6 F 97.8 F Pulse Rate 87 82 90 Respiratory Rate 24 25 H Blood Pressure 118/67 143/74 H Pulse Oximetry 93 L 95 10/05/17 18:00 10/05/17 19:23 10/05/17 20:00 Temperature 98.3 F Pulse Rate 103 H 110 H 100 H Respiratory Rate 25 H 24 Blood Pressure 130/75 Pulse Oximetry 94 L 10/05/17 22:00 10/06/17 00:00 10/06/17 00:40 Temperature 98.3 F Pulse Rate 98 H 72 Respiratory Rate 17 Blood Pressure 94/56 L Pulse Oximetry 96 10/06/17 02:00 10/06/17 04:00 10/06/17 06:00 Temperature 98 F Pulse Rate 78 78 85 Respiratory Rate 17 Blood Pressure 110/66 Pulse Oximetry 10/06/17 07:33 10/06/17 08:00 10/06/17 10:00 Temperature 98.3 F Pulse Rate 93 H 96 H 75 Respiratory Rate 26 H 20 Blood Pressure 90/53 L Pulse Oximetry 93 L 97 Intake & Output 10/05/17 10/06/17 10/06/17 18:59 06:59 18:59 Intake Total 1253 / 1253 1122 / 1122 Output Total 1600 / 1600 1850 / 1850 Balance -347 / -347 -728 / -728 Weight 61.8 kg Intake: Oral 0 / 0 Tube Feeding 653 / 653 492 / 492 Tube Irrigant 30 / 30 Water Bolus Amount 600 / 600 600 / 600 Anesthesia Amount 0 / 0 Other 0 / 0 Output: Urine 800 / 800 Stool 100 / 100 Urine/Stool Mix 100 / 100 Urine Amount (Catheter) 1500 / 1500 950 / 950 Indwelling Urethral Catheter 1500 / 1500 950 / 950 Other: Other Intake Source Saline Solution Date of Last Bowel Movement 10/05/17 10/05/17 10/06/17 # Bowel Movements 0 # Incontinent Bowel Movements 0 Narrative: Andreafski collar in place Nursing reports spontaneous movements left upper extremity, now with some right upper movement, no movements in LEs - Urinary Catheter Management Indwelling Urethral Catheter Cath placed during this visit: yes Reason for continuing: Acute urinary retention Insertion date: 08/20/17 Insertion time: 17:00 Assessment and Plan - Plan Impression: 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 s/p: C3-5 laminoplasty 09/19/17 Cervical Spine MRI 09/25/17 00:00 CONCLUSION: 1. Status post laminectomy at the C3-C5 levels. Surgical hardware seen at the posterior elements at these levels. 2. Moderate stenosis at the C4-C5 level secondary to disc bulge and central disc protrusion. There is abnormal signal again seen within the cord. The cord appears small this region. This likely secondary to myelomalacia. 3. Mild to moderate narrowing of the thecal sac at the C5-C6 and C6-C7 level. 4. Neural foraminal narrowing throughout the cervical spine as described above. Plan: Primary & critical care management per Community Representative. Palliative Care following. cont Andreafski J cervical collar at all times
--- NOTE | 2017-10-06 19:34 | P.PN ---
Subjective Interval history: Awake and on a T Bar at 35 % FIO2 . Some response to commands. No Fever. Physical Exam Vital signs: Vital Signs 10/05/17 20:00 10/05/17 22:00 10/06/17 00:00 Temperature 98.3 F 98.3 F Pulse Rate 100 H 98 H 72 Respiratory Rate 24 17 Blood Pressure 130/75 94/56 L Pulse Oximetry 10/06/17 00:40 10/06/17 02:00 10/06/17 04:00 Temperature 98 F Pulse Rate 78 78 Respiratory Rate 17 Blood Pressure 110/66 Pulse Oximetry 96 10/06/17 06:00 10/06/17 07:33 10/06/17 08:00 Temperature 98.3 F Pulse Rate 85 93 H 96 H Respiratory Rate 26 H 20 Blood Pressure 90/53 L Pulse Oximetry 93 L 97 10/06/17 10:00 10/06/17 12:00 10/06/17 14:00 Temperature 98.3 F Pulse Rate 75 76 82 Respiratory Rate 21 Blood Pressure 106/59 L Pulse Oximetry 94 L 10/06/17 16:00 10/06/17 18:00 10/06/17 19:24 Temperature 97.9 F Pulse Rate 89 91 H 89 Respiratory Rate 26 H 18 Blood Pressure 111/59 L Pulse Oximetry 96 94 L Intake & Output 10/06/17 10/06/17 10/07/17 06:59 18:59 06:59 Intake Total 1122 / 1122 1260 / 1260 Output Total 1850 / 1850 1250 / 1250 Balance -728 / -728 10 / 10 Weight 61.8 kg Intake: Oral 0 / 0 Tube Feeding 492 / 492 660 / 660 Tube Irrigant 30 / 30 Water Bolus Amount 600 / 600 600 / 600 Anesthesia Amount 0 / 0 Other 0 / 0 Output: Urine 800 / 800 Stool 100 / 100 Urine Amount (Catheter) 950 / 950 1250 / 1250 Indwelling Urethral Catheter 950 / 950 1250 / 1250 Other: Other Intake Source Saline Solution Date of Last Bowel Movement 10/05/17 10/06/17 # Bowel Movements 0 # Incontinent Bowel Movements 0 Narrative: GENERAL: Elderly sudanese male currently on t-piece via trach. NECK: Trachea midline. Trach site with no drainage. CARDIOVASCULAR: normal rate, regular rhythm. LUNGS: Few wheezes bilaterally. Poor effort. GASTROINTESTINAL: Abdomen soft, non-tender, nondistended. No guarding. MUSCULOSKELETAL: Extremities without significant peripheral edema. NEUROLOGICAL: Awake, with spontaneous eye opening, moves left upper extremity spontaneously. Follows commands when spoken to in Mandarin, lifts left upper extremity, good handgrip, closes eyes. - Urinary Catheter Management Indwelling Urethral Catheter Cath placed during this visit: yes Reason for continuing: Acute urinary retention Insertion date: 08/20/17 Insertion time: 17:00 Results - Labs CBC & Chem 7: 10/06/17 04:20 10/06/17 04:20 Laboratory Results - last 24 hr 10/05/17 10/06/17 10/06/17 19:56 01:49 04:20 WBC 5.0 RBC 3.53 L Hgb 10.6 L Hct 32.6 L MCV 92.2 MCH 30.1 MCHC 32.7 RDW 19.9 H Plt Count 172 MPV 7.4 Sodium Potassium Chloride Carbon Dioxide Anion Gap BUN Creatinine Estimated GFR POC Glucose 161 H 143 H Random Glucose Calcium 10/06/17 10/06/17 10/06/17 04:20 07:58 13:31 WBC RBC Hgb Hct MCV MCH MCHC RDW Plt Count MPV Sodium 140 Potassium 4.1 Chloride 98 Carbon Dioxide 36.1 H Anion Gap 6 BUN 30 H Creatinine 0.41 L Estimated GFR Greater than 89 POC Glucose 164 H 210 H Random Glucose 123 H Calcium 8.6 - Imaging Impressions Chest X-Ray 10/06/17 00:00 CONCLUSION: 1. Patchy bilateral airspace and interstitial process some of which may be chronic. 2. Improving right-sided effusion and right basilar atelectasis. Persistent left basilar consolidation/effusion Assessment and Plan - Assessment (1) Cervical myelopathy Code(s): G95.9 - Disease of spinal cord, unspecified Status: Acute (2) Respiratory failure Code(s): J96.90 - Respiratory failure, unspecified, unspecified whether with hypoxia or hypercapnia Status: Acute (3) SVT (supraventricular tachycardia) Code(s): I47.1 - Supraventricular tachycardia Status: Acute (4) Lung mass Code(s): R91.8 - Other nonspecific abnormal finding of lung field Status: Acute (5) Diabetes Code(s): E11.9 - Type 2 diabetes mellitus without complications Status: Acute (6) Gout Code(s): M10.9 - Gout, unspecified Status: Acute (7) Spinal stenosis Code(s): M48.00 - Spinal stenosis, site unspecified Status: Acute (8) Dyspnea Code(s): R06.00 - Dyspnea, unspecified Status: Acute - Plan 1. T Bar at 30 % FIO2 . 2. Trach lavage and suction PRN 3. Duoneb nebs qid. 4. Chest XRay in am. 5. Tube feeds at 50CC 6. PT Evaluation for activity
[2017-10-07] MEDS: Oral Hygiene Kit OROPHARYNG SCH ×5 (01:49→23:45)
[2017-10-07] MEDS: Insulin NovoLOG Aspart Correctional Sugar Inj SQ SCH ×4 (01:50→20:46)
[2017-10-07] MEDS: Chlorhexidine Gluconate 2% 1 Pack (2 Cloths) TOPICAL SCH (03:36)
[2017-10-07] MEDS: Artificial Tears Opth Drops 15 ML Bottle EACH EYE SCH ×3 (05:15→21:24)
[2017-10-07] MEDS: Beneprotein Powder Packet G-TUBE SCH ×3 (08:00→18:10)
[2017-10-07] MEDS: Chlorhexidine 0.12% Oral Kit 15 ML UDC SWISH-SPIT SCH ×2 (08:00→20:47)
[2017-10-07] MEDS: Metoprolol Tartrate 50 MG Tablet PO SCH ×2 (09:00→21:30)
[2017-10-07] MEDS: Insulin Detemir Inj 1,000 UNIT/10 ML Vial SQ SCH ×2 (09:00→21:24)
--- NOTE | 2017-10-07 09:44 | P.PNNS ---
Subjective Interval history: 10/07/17: Pt awake. Opens mouth by mimicking. Not following other commands. Physical Exam Vital signs: Vital Signs 10/06/17 10:00 10/06/17 12:00 10/06/17 14:00 Temperature 98.3 F Pulse Rate 75 76 82 Respiratory Rate 21 Blood Pressure 106/59 L Pulse Oximetry 94 L 10/06/17 16:00 10/06/17 18:00 10/06/17 19:24 Temperature 97.9 F Pulse Rate 89 91 H 89 Respiratory Rate 26 H 18 Blood Pressure 111/59 L Pulse Oximetry 96 94 L 10/06/17 20:00 10/06/17 22:00 10/07/17 00:00 Temperature 98.3 F 98.3 F Pulse Rate 88 84 85 Respiratory Rate 18 16 Blood Pressure 97/52 L 114/63 Pulse Oximetry 96 99 10/07/17 02:00 10/07/17 04:00 10/07/17 04:55 Temperature 98.3 F Pulse Rate 95 H 92 H Respiratory Rate 20 Blood Pressure 106/58 L Pulse Oximetry 94 L 94 L 10/07/17 06:00 10/07/17 07:00 10/07/17 07:34 Temperature Pulse Rate 96 H 127 H Respiratory Rate 37 H Blood Pressure Pulse Oximetry 91 L Intake & Output 10/06/17 10/07/17 10/07/17 18:59 06:59 18:59 Intake Total 1260 / 1260 923 / 923 Output Total 1250 / 1250 900 / 900 Balance Weight 64.5 kg Intake: Tube Feeding 660 / 660 623 / 623 Water Bolus Amount 600 / 600 300 / 300 Output: Stool 100 / 100 Urine Amount (Catheter) 1250 / 1250 800 / 800 Indwelling Urethral Catheter 1250 / 1250 800 / 800 Other: Date of Last Bowel Movement 10/06/17 10/07/17 - Constitutional no acute distress, thin - Routine HEENT Exam Head: Present: normocephalic, atraumatic Eye: Present: PERRL. Absent: conjunctival icterus - Routine Neck Exam Present: trachea midline (Trach in place on humidified O2 via trach collar.) - Routine Respiratory Exam Present: CTA bilaterally. Absent: rhonchi, wheezes - Routine Cardiovascular Exam Present: RRR, S1, S2. Absent: murmur - Routine Abdominal Exam Present: soft, normoactive bowel sounds. Absent: distended, guarding, firm - Routine Extremities Exam Absent: cyanosis - Routine Skin Exam Absent: cyanosis, erythema - Routine Neurological Exam Present: alert. Absent: moving all extremities (Spontaneous movment in Left upper extremity at elbow. Not moving RUE or LEs. No movement in hands.) - Routine Psychiatric Exam Present: unable to assess - Urinary Catheter Management Indwelling Urethral Catheter Cath placed during this visit: yes Reason for continuing: Terminally ill/Comfort care Insertion date: 08/20/17 Insertion time: 17:00 Assessment and Plan - Assessment (1) Cervical myelopathy Code(s): G95.9 - Disease of spinal cord, unspecified Status: Acute - Plan Impression: 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 s/p: C3-5 laminoplasty 09/19/17 Cervical Spine MRI 09/25/17 00:00 CONCLUSION: 1. Status post laminectomy at the C3-C5 levels. Surgical hardware seen at the posterior elements at these levels. 2. Moderate stenosis at the C4-C5 level secondary to disc bulge and central disc protrusion. There is abnormal signal again seen within the cord. The cord appears small this region. This likely secondary to myelomalacia. 3. Mild to moderate narrowing of the thecal sac at the C5-C6 and C6-C7 level. 4. Neural foraminal narrowing throughout the cervical spine as described above. Plan: Primary & critical care management per Hospitalist. Palliative Care following. cont [place] J cervical collar at all times residential care facility when medically stable. Follow up with Dr. Victor outpatient every 6 weeks from surgery with follow up cervical x-rays.
--- NOTE | 2017-10-07 13:17 | P.PN ---
Subjective Interval history: awake and alert, ff commands currently on TF- tolerating at 55 cc/hr tracheostomy in plce - 28%- miimal lt creamy secretins on uscitoning stools soft Physical Exam Vital signs: Vital Signs 10/06/17 14:00 10/06/17 16:00 10/06/17 18:00 Temperature 97.9 F Pulse Rate 82 89 91 H Respiratory Rate 26 H Blood Pressure 111/59 L Pulse Oximetry 96 10/06/17 19:24 10/06/17 20:00 10/06/17 22:00 Temperature 98.3 F Pulse Rate 89 88 84 Respiratory Rate 18 18 Blood Pressure 97/52 L Pulse Oximetry 94 L 96 10/07/17 00:00 10/07/17 02:00 10/07/17 04:00 Temperature 98.3 F 98.3 F Pulse Rate 85 95 H 92 H Respiratory Rate 16 20 Blood Pressure 114/63 106/58 L Pulse Oximetry 99 94 L 10/07/17 04:55 10/07/17 06:00 10/07/17 07:00 Temperature Pulse Rate 96 H Respiratory Rate Blood Pressure Pulse Oximetry 94 L 91 L 10/07/17 07:34 10/07/17 08:00 10/07/17 10:00 Temperature 97.8 F Pulse Rate 127 H 118 H Respiratory Rate 37 H 26 H Blood Pressure 150/84 H Pulse Oximetry 96 96 10/07/17 12:00 Temperature 97.8 F Pulse Rate 87 Respiratory Rate Blood Pressure 127/66 Pulse Oximetry 95 Intake & Output 10/06/17 10/07/17 10/07/17 18:59 06:59 18:59 Intake Total 1260 / 1260 923 / 923 Output Total 1250 / 1250 900 / 900 Balance Weight 64.5 kg Intake: Tube Feeding 660 / 660 623 / 623 Water Bolus Amount 600 / 600 300 / 300 Output: Stool 100 / 100 Urine Amount (Catheter) 1250 / 1250 800 / 800 Indwelling Urethral Catheter 1250 / 1250 800 / 800 Other: Date of Last Bowel Movement 10/06/17 10/07/17 Narrative: awake and alert, ff commands Elderly tajik male currently on t-piece via trach. neck - Trach site with no drainage. heart - normal rate, regular rhythm. lungs- decreased breth sounds, no wheezes Abdomen soft, non-tender, nondistended. No guarding., PEG in place ceja in place Extremities without significant peripheral edema. NEUROLOGICAL: Awake, with spontaneous eye opening, moves left upper extremity spontaneously. 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 - Urinary Catheter Management Indwelling Urethral Catheter Cath placed during this visit: yes Reason for continuing: Terminally ill/Comfort care Insertion date: 08/20/17 Insertion time: 17:00 Results - Labs CBC & Chem 7: 10/06/17 04:20 10/06/17 04:20 Laboratory Results - last 24 hr 10/06/17 10/06/17 10/07/17 13:31 21:36 01:07 POC Glucose 210 H 143 H 135 H 10/07/17 08:18 POC Glucose 126 H - Procedures 08/23- intubation 09/03- bronchoscopy, lung biopsy, thoaracentesis 09/08- tracheostomy 09/11- PEG placement Assessment and Plan - Plan This is a 77-year-old Romansh male admitted 08/21/2017, with history of hypertension, gout and diabetes mellitus presenting initially with intermittent pain in his groin, upper thorax and around his back. CT angiogram showed bilateral emphysema and pulmonary nodules with compressive atelectasis of the right lower lobe. Biopsy was done which showed chronic inflammation reactive fibroblastic tissue. Patient was also found to have severe spinal stenosis, status post laminectomy. Patient's hospital stay was complicated by septic shock secondary to healthcare associated pneumonia and C. difficile colitis. Severe cervical spinal stenosis, status post C2 hemilaminectomy, C3 through 5 lamina plasty with quadriplegia and acute spinal injury. Toxic metabolic encephalopathy. - MRI C-spine 09/15: Focal severe spinal canal stenosis at C4-5. Moderate diffuse broad-based bulging at C3-4 with some mild increased signal in the spinal cord at this level. Moderate spinal canal stenosis at C6-C7 Bilateral facet arthritis at multiple levels. Head CT 08/23: 2 questionable tiny focal hemorrhages. MRI of brain 08/26 chronic small vessel ischemic and atrophic changes. EEG 09/03 revealed severe encephalopathy. No epileptiform activity - Neurosurgery Dr. Victor consulted, Poor chance of neurological recovery for him , recent discussion with Dr. Smith and son, no further surgical intervention per son. - Neurology Dr. Carvalho. Per his recommendations was placed on high dose solumedrol 250 mg every 6 hours, d/w Dr. Carvalho 10/06 , taper steroids to off over 2-3 weeks. Was switch to oral today 10/07 and taper accordingly. - Continue Tylenol, oxycodone, morphine, physical therapy. Uncontrolled hypertension, Atherosclerotic coronary artery disease, Atrial fibrillation- now in SR on telemetry -Continue metoprolol and digoxin, previously on amiodarone was stopped because of bradycardia. BP is better, in fact soft, decrease metoprolol to 25 mg BID Acute, now chronic hypoxic hypercapnic respiratory failure secondary to COPD exacerbation, Trach site infection, Bilateral pleural effusion/status post chest tube right- sided transudative in nature. Chest tube removed 09/04 Multiple bilateral pulmonary masses vs infiltrate, RML mass vs consolidation -CT pulmonary angiogram revealed multiple masses. Lung mass biopsied on August 28 showed CHRONIC INFLAMMATORY AND REACTIVE FIBROBLASTIC TISSUE CONTAINING ENTRAPPED BENIGN EPITHELIUM, plan is reconsult IR 09/08 for repeat biopsy however patient is not stable. - Followed by Dr. Hardy/pulmonology. Reconsulted 09/08, recommended repeat CT in 4 weeks and to hold off IR guided biopsy due to respiratory and neuro status. s/p percutaneous tracheostomy 09/08 ([facility]), Status post thoracentesis left side 09/09 with 1 L fluid removed. No evidence of infection. Chest tubes removed 09/04/2017. -Continue T-piece, continue budesonide, DuoNeb's, Levsin for secretions - Pulmonary consulted for decannulation, CXR still shows bilateral infiltrates, keep on T-bar at 30% - decannulation per pulmonary. PMV ang pulmonary. Hypoalbuminemia Acute protein calorie malnutrition -severe -s/p PEG 09/11. Tolerating tube feeds with Glucerna 1.5 at 55 cc an hour, free water flushes 300 cc every 6 hours Urinary retention, possible urinary stricture Acute kidney injury Maintain Ceja catheter. Monitor urine output, Accurate I's and O's, significant difficulty due to obstruction which may be urethral stricture which prevented serial i/o Diabetes mellitus Sliding scale insulin with NovoLog high regimen to maintain euglycemia. Currently on insulin detemir 10 units subq twice daily Severe sepsis - resolved Trach site infection - resolved Healthcare associated pneumonia - resolved C. difficile colitis - resolved. - Status post bronchoscopy 09/03 cultures negative, Appreciate ID input. PO vancomycin completed 09/30. Still with lose stools, d/c stool softeners, leukocytosis resolved. FEN: Hypernatremia - resolved Prophylaxis -GI -lansoprazole. DVT -SCD/heparin subcutaneous Disposition: This gentleman remains weak and debilitated, functionally quadriparetic. Long-term prognosis for a meaningful recovery is quite poor. The best we can probably hope for is a skilled facility, continue t-piece trials and now working towards placement and decanulation. Patient awaiting bed at the long-term vent unit. Palliative care ff along with us Alternative Code Candidate for ALC once consultants have signed off.
--- NOTE | 2017-10-07 17:02 | P.PNPAL ---
Reason for Visit Reason for visit: a. To assist with evaluation and management of symptoms including: dyspnea, pain, agitation b. To assist medical decision maker(s) with: better understanding of current medical conditions; weighing benefits/burdens of medical treatment options; making medical treatment decisions. Subjective Subjective/Interval History: Patient s/p C2-C3 to 5 laminoplasty for severe cervical spinal cord stenosis. Patient is much more alert and able to follow some direction, occasionally will sleep. He can move his left hand on command, right hand less so. He can also move his toes bilaterally. He remains on T piece. Family/Friend Interactions: I tried calling son Humble several times. He has not return the call. I was able to reach pt's spouse. concern has been the passy [place]rielle valve. I have told them that even last week, when pt was under the care of android platform developer, I have informed the them that is something the family wish for. Nurse today have informed RT Goals of care remains the same. Objective Vital Signs: Vital Signs 10/06/17 18:00 10/06/17 19:24 10/06/17 20:00 Temperature 98.3 F Pulse Rate 91 H 89 88 Respiratory Rate 18 18 Blood Pressure 97/52 L Pulse Oximetry 94 L 96 10/06/17 22:00 10/07/17 00:00 10/07/17 02:00 Temperature 98.3 F Pulse Rate 84 85 95 H Respiratory Rate 16 Blood Pressure 114/63 Pulse Oximetry 99 10/07/17 04:00 10/07/17 04:55 10/07/17 06:00 Temperature 98.3 F Pulse Rate 92 H 96 H Respiratory Rate 20 Blood Pressure 106/58 L Pulse Oximetry 94 L 94 L 10/07/17 07:00 10/07/17 07:34 10/07/17 08:00 Temperature 97.8 F Pulse Rate 127 H 118 H Respiratory Rate 37 H 26 H Blood Pressure 150/84 H Pulse Oximetry 91 L 96 10/07/17 10:00 10/07/17 12:00 10/07/17 16:00 Temperature 97.8 F 97.8 F Pulse Rate 87 85 Respiratory Rate Blood Pressure 127/66 119/56 L Pulse Oximetry 96 95 97 Intake & Output 10/06/17 10/07/17 10/07/17 18:59 06:59 18:59 Intake Total 1260 / 1260 923 / 923 Output Total 1250 / 1250 900 / 900 Balance Weight 64.5 kg Intake: Tube Feeding 660 / 660 623 / 623 Water Bolus Amount 600 / 600 300 / 300 Output: Stool 100 / 100 Urine Amount (Catheter) 1250 / 1250 800 / 800 Indwelling Urethral Catheter 1250 / 1250 800 / 800 Other: Date of Last Bowel Movement 10/06/17 10/07/17 Physical Exam: CONSTITUTIONAL/GENERAL: This is an adequately nourished patient , on mech vent . sleeping, but easily awakens TUBES/LINES/DRAINS: trach- t piece, ceja, PIV x2 BUE, OGT SKIN: No jaundice, rashes, or lesions. No wounds seen anteriorly. skin warm/ dry EYES: no eye opening. No injection or drainage. Fundi not examined. ENT: Nose without bleeding or purulent drainage. Limited oropharynx exam 2/2 + T piece CARDIOVASCULAR: RRR without murmurs. No JVD. Peripheral pulses symmetric. Trace periph edema to hands. RESPIRATORY/CHEST: unlabored respirations Coarse breath sounds. Diminished sounds bases. GASTROINTESTINAL: Abdomen soft, non-tender, nondistended. No hepato-splenomegaly , or palpable masses. Bowel sounds present. TF infusing via OGT MUSCULOSKELETAL: Trace +BUE edema. +soft restraints lower ext. No mottling or clubbing. NEUROLOGICAL: n vent. can wiggle toes. Can grab finger on command on left upper ext. Some movement of right ext. PSYCH: no apparent distress, limited assess 2/2 clinical condition Diagnostic Tests Laboratory: Laboratory Results - last 72 hr 10/04/17 10/05/17 10/05/17 19:39 01:36 01:41 WBC 6.2 RBC 3.47 L Hgb 10.5 L Hct 31.7 L MCV 91.5 MCH 30.3 MCHC 33.1 RDW 20.3 H Plt Count 173 MPV 7.3 Sodium Potassium Chloride Carbon Dioxide Anion Gap BUN Creatinine Estimated GFR POC Glucose 142 H 112 H Random Glucose Calcium 10/05/17 10/05/17 10/05/17 01:41 07:49 13:36 WBC RBC Hgb Hct MCV MCH MCHC RDW Plt Count MPV Sodium 139 Potassium 4.0 Chloride 98 Carbon Dioxide 34.0 H Anion Gap 7 BUN 32 H Creatinine 0.40 L Estimated GFR Greater than 89 POC Glucose 79 127 H Random Glucose 82 Calcium 8.7 10/05/17 10/06/17 10/06/17 19:56 01:49 04:20 WBC 5.0 RBC 3.53 L Hgb 10.6 L Hct 32.6 L MCV 92.2 MCH 30.1 MCHC 32.7 RDW 19.9 H Plt Count 172 MPV 7.4 Sodium Potassium Chloride Carbon Dioxide Anion Gap BUN Creatinine Estimated GFR POC Glucose 161 H 143 H Random Glucose Calcium 10/06/17 10/06/17 10/06/17 04:20 07:58 13:31 WBC RBC Hgb Hct MCV MCH MCHC RDW Plt Count MPV Sodium 140 Potassium 4.1 Chloride 98 Carbon Dioxide 36.1 H Anion Gap 6 BUN 30 H Creatinine 0.41 L Estimated GFR Greater than 89 POC Glucose 164 H 210 H Random Glucose 123 H Calcium 8.6 10/06/17 10/07/17 10/07/17 21:36 01:07 08:18 WBC RBC Hgb Hct MCV MCH MCHC RDW Plt Count MPV Sodium Potassium Chloride Carbon Dioxide Anion Gap BUN Creatinine Estimated GFR POC Glucose 143 H 135 H 126 H Random Glucose Calcium 10/07/17 14:39 WBC RBC Hgb Hct MCV MCH MCHC RDW Plt Count MPV Sodium Potassium Chloride Carbon Dioxide Anion Gap BUN Creatinine Estimated GFR POC Glucose 156 H Random Glucose Calcium Result Diagrams: 10/06/17 04:20 10/06/17 04:20 Assessment and Plan - Disease Oriented Problem List (1) Respiratory failure Comment: revealed 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 Right middle lobe 2.7 x 2.2 x 7's. Spiculated. Left lingula is 3.4 x 3.20 cm. COPD (2) SVT (supraventricular tachycardia) (3) Lung mass Comment: revealed 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 Right middle lobe 2.7 x 2.2 x 7's. Spiculated. Left lingula is 3.4 x 3.20 cm. 1st biopsy did not show malignancy. 2nd biopsy on hold. (4) Diabetes (5) Gout (6) Spinal stenosis Pertinent Non-Medical Issues: Psychosocial: Retired. He was living at home with his Tommie Gutierrez and his son "Cristina Palmer. Recently returned from 3 month trip to [place]. Speaks Mandarin only. He also has another son who had just arrive from [place]. He is awaiting for his grandson to arrive also from [place]. Spiritual: unk at this time Legal: Per [place] statutes legal decision maker proxy is pt's . It appears she may have been deferring to son but has been present for major decisions. Family appears to be working together. Ethical issues impacting care: no issues identified Important Contacts: Spencer Reilly [phone] Son "Cristina Palmer [phone] Prognosis: 77 yo critically ill pt with respiratory failure, likely malignant lung nodules , underlying diastolic heart failure and DM. Prognosis for recovery to previous status is poor given likely malignancy in the lungs, poor neurological progress in which , risk for infections bedsores, various complications remains.. Code Status: Alternative Code Plan: CODE STATUS - Alternate- no shock, no compression, no acls drugs. Just intubation. Capacity- he does not appears to be able to weigh the risk and benefits of decision on my visit. Alertness has improved. Unlikely he has insight or can weigh the risk and benefits. Remains lethargic and tired. LEGAL DECISION MAKER - per [place] statutes is proxy , who defers decisions to son, Humble, family all working together. Family meetings-palliative has met at length with patient's family multiple times. Last extensive family meeting was 09/24/2017. We had reviewed: all the challenges pt faces. Review that neurologically, there is a strong possibility that he well remain essentially quadriplegic. Neurosurgery had endorse that overall prognosis is poor. I reviewed with family the high probability those lung mass are cancer, and that given his current condition it is not likely he could tolerate treatment. This may the the best pt can get, and likely will have complications with various infection/ trach issues, aspiration risk, bed sores, deblity. Reemphasize overall prognosis is poor. On (09/30) met with family at bedside another time. Wear phone translation service was used for family meeting. Updated eldest son who has just arrived from [place]. Again I reviewed patient condition. Stating that neurlogically this may be as best the patient may get. I noted there may be some improvement, but overall prognosis for functional neurological recovery is poor. I reviewed and ask about their discussion with neurosurgeon and they stated, they do not want to put patient through another surgery again. I reviewed again that it is very likely/ suspicious the masses in his lungs are cancer. I review with them very soon pt may likely be moved to another floor. I told them if they feel pt's is suffering/ or in pain and goals of care change ; option of just palliation/hospice is available. Goals of care are the following: = Currently they are awaiting pt's grandson to arrive. They are not sure when as he has just received the letter I have written for him/ and he is now applying for a visa. = They have also seen that his right hand moving today, which is new. They want to take it day by day. = Pt's spouse ask when will the patient be able to speak: I did answer her question that it takes time and it requires a Passy [place] Valve. =They have heard about pt's prognosis, but I do not anticipate goals of care will change at this time unless there is another setback; and/or when grandson arrives. Goals of care toda7y remains the same. Main concern was the passy [place] valve. SYMPTOMS * shortness of breath - 2/2 pleural effusions, underlying diastolic heart failure. Questionable malignancy, hx remote TB. O. Status post tracheostomy. appears stable currently * pain - ?cause? presented with right side and thoracic pain. imaging showing lung nodules. BX benign, ?repeat. 0/10 pain per nursing scores. appears comfortable, no signs of pain on exam. Appears comfortable. * agitation - . there is some reported agitation. Palliative care will continue to follow during hospital course as condition evolves to assist patient/decision maker with understanding of medical conditions, benefits/burdens of treatment options, clarification of goals of treatment, and will assist with symptoms of palliative concern.
--- NOTE | 2017-10-07 19:53 | P.PN ---
Subjective Interval history: More alert and is moving his left arm well. Cannot move legs and Right arm On FIO2 35 % on T bar with Trach. CXR with bilat infiltrates Physical Exam Vital signs: Vital Signs 10/06/17 20:00 10/06/17 22:00 10/07/17 00:00 Temperature 98.3 F 98.3 F Pulse Rate 88 84 85 Respiratory Rate 18 16 Blood Pressure 97/52 L 114/63 Pulse Oximetry 96 99 10/07/17 02:00 10/07/17 04:00 10/07/17 04:55 Temperature 98.3 F Pulse Rate 95 H 92 H Respiratory Rate 20 Blood Pressure 106/58 L Pulse Oximetry 94 L 94 L 10/07/17 06:00 10/07/17 07:00 10/07/17 07:34 Temperature Pulse Rate 96 H 127 H Respiratory Rate 37 H Blood Pressure Pulse Oximetry 91 L 10/07/17 08:00 10/07/17 10:00 10/07/17 12:00 Temperature 97.8 F 97.8 F Pulse Rate 118 H 87 Respiratory Rate 26 H Blood Pressure 150/84 H 127/66 Pulse Oximetry 96 96 95 10/07/17 16:00 10/07/17 19:24 Temperature 97.8 F Pulse Rate 85 102 H Respiratory Rate 22 Blood Pressure 119/56 L Pulse Oximetry 97 94 L Intake & Output 10/07/17 10/07/17 10/08/17 06:59 18:59 06:59 Intake Total 923 / 923 1124 / 1124 Output Total 900 / 900 800 / 800 Balance 324 / 324 Weight 64.5 kg Intake: Tube Feeding 623 / 623 524 / 524 Tube Irrigant 600 / 600 Water Bolus Amount 300 / 300 Output: Stool 100 / 100 Urine Amount (Catheter) 800 / 800 800 / 800 Indwelling Urethral Catheter 800 / 800 800 / 800 Other: Date of Last Bowel Movement 10/07/17 Narrative: awake and alert, ff commands Elderly armenian male currently on T-piece with Aerosol and trach . neck - Trach site with no drainage. heart - normal rate, regular rhythm. lungs- decreased Breath sounds, no wheezes Abdomen soft, non-tender, nondistended. No guarding., PEG in place Extremities without significant peripheral edema. NEUROLOGICAL: Awake, with spontaneous eye opening, moves left upper extremity spontaneously. 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 to left- decrease hand mountain bike guide - Urinary Catheter Management Indwelling Urethral Catheter Cath placed during this visit: yes Reason for continuing: Terminally ill/Comfort care Insertion date: 08/20/17 Insertion time: 17:00 Results - Labs CBC & Chem 7: 10/06/17 04:20 10/06/17 04:20 Laboratory Results - last 24 hr 10/06/17 10/07/17 10/07/17 21:36 01:07 08:18 POC Glucose 143 H 135 H 126 H 10/07/17 14:39 POC Glucose 156 H - Procedures 08/23- intubation 09/03- bronchoscopy, lung biopsy, thoaracentesis 09/08- tracheostomy 09/11- PEG placement Assessment and Plan - Assessment (1) Cervical myelopathy Code(s): G95.9 - Disease of spinal cord, unspecified Status: Acute (2) Respiratory failure Code(s): J96.90 - Respiratory failure, unspecified, unspecified whether with hypoxia or hypercapnia Status: Acute (3) SVT (supraventricular tachycardia) Code(s): I47.1 - Supraventricular tachycardia Status: Acute (4) Lung mass Code(s): R91.8 - Other nonspecific abnormal finding of lung field Status: Acute (5) Diabetes Code(s): E11.9 - Type 2 diabetes mellitus without complications Status: Acute (6) Gout Code(s): M10.9 - Gout, unspecified Status: Acute (7) Spinal stenosis Code(s): M48.00 - Spinal stenosis, site unspecified Status: Acute (8) Dyspnea Code(s): R06.00 - Dyspnea, unspecified Status: Acute - Plan 1. T Bar at 30 % FIO2 . 2. Trach lavage and suction PRN 3. Duoneb nebs qid. 4. CBC, BMP 5. Tube feeds at 50CC 6. PT Evaluation for activity 7. Transfer to LTAC
[2017-10-08] MEDS: Insulin NovoLOG Aspart Correctional Sugar Inj SQ SCH ×4 (02:52→20:07)
[2017-10-08] MEDS: Chlorhexidine Gluconate 2% 1 Pack (2 Cloths) TOPICAL SCH (04:21)
[2017-10-08] MEDS: Oral Hygiene Kit OROPHARYNG SCH ×3 (04:21→16:07)
[2017-10-08] MEDS: Artificial Tears Opth Drops 15 ML Bottle EACH EYE SCH ×3 (05:52→22:02)
[2017-10-08] MEDS: Chlorhexidine 0.12% Oral Kit 15 ML UDC SWISH-SPIT SCH ×2 (08:35→20:08)
[2017-10-08] MEDS: Metoprolol Tartrate 50 MG Tablet PO SCH ×2 (09:23→21:50)
[2017-10-08] MEDS: Beneprotein Powder Packet G-TUBE SCH ×3 (09:24→18:08)
[2017-10-08] MEDS: Insulin Detemir Inj 1,000 UNIT/10 ML Vial SQ SCH ×2 (09:58→20:08)
--- NOTE | 2017-10-08 14:44 | P.PNPAL ---
Reason for Visit Reason for visit: a. To assist with evaluation and management of symptoms including: dyspnea, pain, b. To assist medical decision maker(s) with: better understanding of current medical conditions; weighing benefits/burdens of medical treatment options; making medical treatment decisions. Subjective Subjective/Interval History: Follow up on Patient s/p C2-C3 to 5 laminoplasty for severe cervical spinal cord stenosis. Patient is much more alert and able to follow some direction, occasionally will sleep. He can move his left hand on command, right hand less so. He can also move his toes bilaterally. He remains on T piece. Pt more sleeping today. Did not endorse pain on my visit. Family/Friend Interactions: Met with patient spouse, and 2 sons. [employer] was used for translation. Answered their questions concerning passy dereck valve. I have d/w with pulmonology and pt need to be stronger before that can be done. I also update family on lung lesions/mass. I inform them that possibility of cancer remains, but could be infections. Pulmonology has said biopsy right now would be too dangerous, and may lead to decompensation. Recommendation is follow up CT in 4 weeks. I answered pt's family questions about rectal tube, ceja etc.. Family appreciative of meeting. Family understand pt will likely be moved to director long term care care unit soon. Goals are aggressive short of alternative code They did say if pt has abdominal pain, they are amenable to pain meds. Objective Vital Signs: Vital Signs 10/07/17 16:00 10/07/17 19:24 10/07/17 20:00 Temperature 97.8 F 98.6 F Pulse Rate 85 102 H 100 H Respiratory Rate 22 26 H Blood Pressure 119/56 L 120/60 Pulse Oximetry 97 94 L 93 L 10/08/17 00:00 10/08/17 03:11 10/08/17 04:00 Temperature 98.1 F 98.4 F Pulse Rate 102 H 92 H Respiratory Rate 26 H 21 Blood Pressure 119/68 111/57 L Pulse Oximetry 98 96 95 10/08/17 07:48 10/08/17 08:00 10/08/17 10:00 Temperature 98.7 F Pulse Rate 108 H 109 H 77 Respiratory Rate 23 26 H Blood Pressure 143/78 H Pulse Oximetry 93 L 91 L 10/08/17 12:00 10/08/17 14:00 Temperature 98.6 F Pulse Rate 82 74 Respiratory Rate 20 Blood Pressure 125/69 Pulse Oximetry 93 L Intake & Output 10/07/17 10/08/17 10/08/17 18:59 06:59 18:59 Intake Total 1124 / 1124 715 / 715 Output Total 800 / 800 850 / 850 Balance 324 / 324 -135 / -135 Weight 64.2 kg Intake: Tube Feeding 524 / 524 715 / 715 Tube Irrigant 600 / 600 Output: Urine Amount (Catheter) 800 / 800 850 / 850 Indwelling Urethral Catheter 800 / 800 850 / 850 Other: Date of Last Bowel Movement 10/07/17 # Bowel Movements 1 Physical Exam: CONSTITUTIONAL/GENERAL: This is an adequately nourished patient , on mech vent . sleeping, but easily awakens TUBES/LINES/DRAINS: trach- t piece, ceja, PIV x2 BUE, SKIN: No jaundice, rashes, or lesions. No wounds seen anteriorly. skin warm/ dry EYES: no eye opening. No injection or drainage. Fundi not examined. ENT: Nose without bleeding or purulent drainage. Limited oropharynx exam 2/2 + T piece CARDIOVASCULAR: RRR without murmurs. No JVD. Peripheral pulses symmetric. Trace periph edema to hands. RESPIRATORY/CHEST: unlabored respirations Coarse breath sounds. Diminished sounds bases. GASTROINTESTINAL: Abdomen soft, non-tender, nondistended. No hepato-splenomegaly , or palpable masses. Bowel sounds present. TF infusing via OGT MUSCULOSKELETAL: Trace +BUE edema. +soft restraints lower ext. No mottling or clubbing. NEUROLOGICAL: can wiggle toes. Can grab finger on command on left upper ext. Some movement of right ext. PSYCH: no apparent distress, limited assess 2/2 clinical condition Diagnostic Tests Laboratory: Laboratory Results - last 72 hr 10/05/17 10/06/17 10/06/17 19:56 01:49 04:20 WBC 5.0 RBC 3.53 L Hgb 10.6 L Hct 32.6 L MCV 92.2 MCH 30.1 MCHC 32.7 RDW 19.9 H Plt Count 172 MPV 7.4 Sodium Potassium Chloride Carbon Dioxide Anion Gap BUN Creatinine Estimated GFR POC Glucose 161 H 143 H Random Glucose Calcium 10/06/17 10/06/17 10/06/17 04:20 07:58 13:31 WBC RBC Hgb Hct MCV MCH MCHC RDW Plt Count MPV Sodium 140 Potassium 4.1 Chloride 98 Carbon Dioxide 36.1 H Anion Gap 6 BUN 30 H Creatinine 0.41 L Estimated GFR Greater than 89 POC Glucose 164 H 210 H Random Glucose 123 H Calcium 8.6 10/06/17 10/07/17 10/07/17 21:36 01:07 08:18 WBC RBC Hgb Hct MCV MCH MCHC RDW Plt Count MPV Sodium Potassium Chloride Carbon Dioxide Anion Gap BUN Creatinine Estimated GFR POC Glucose 143 H 135 H 126 H Random Glucose Calcium 10/07/17 10/07/17 10/08/17 14:39 20:35 02:47 WBC RBC Hgb Hct MCV MCH MCHC RDW Plt Count MPV Sodium Potassium Chloride Carbon Dioxide Anion Gap BUN Creatinine Estimated GFR POC Glucose 156 H 144 H 129 H Random Glucose Calcium 10/08/17 10/08/17 08:57 13:47 WBC RBC Hgb Hct MCV MCH MCHC RDW Plt Count MPV Sodium Potassium Chloride Carbon Dioxide Anion Gap BUN Creatinine Estimated GFR POC Glucose 115 H 151 H Random Glucose Calcium Result Diagrams: 10/06/17 04:20 10/06/17 04:20 Imaging: ITS Impressions Cervical Spine X-Ray 09/19/17 00:00 CONCLUSION: Surgical hardware noted posteriorly at the C3-C5 levels. Cervical Spine MRI 09/25/17 00:00 CONCLUSION: 1. Status post laminectomy at the C3-C5 levels. Surgical hardware seen at the posterior elements at these levels. 2. Moderate stenosis at the C4-C5 level secondary to disc bulge and central disc protrusion. There is abnormal signal again seen within the cord. The cord appears small this region. This likely secondary to myelomalacia. 3. Mild to moderate narrowing of the thecal sac at the C5-C6 and C6-C7 level. 4. Neural foraminal narrowing throughout the cervical spine as described above. Chest X-Ray 10/06/17 00:00 CONCLUSION: 1. Patchy bilateral airspace and interstitial process some of which may be chronic. 2. Improving right-sided effusion and right basilar atelectasis. Persistent left basilar consolidation/effusion Assessment and Plan - Disease Oriented Problem List (1) Respiratory failure Comment: revealed 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 Right middle lobe 2.7 x 2.2 x 7's. Spiculated. Left lingula is 3.4 x 3.20 cm. COPD (2) SVT (supraventricular tachycardia) (3) Lung mass Comment: revealed 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 Right middle lobe 2.7 x 2.2 x 7's. Spiculated. Left lingula is 3.4 x 3.20 cm. 1st biopsy did not show malignancy. 2nd biopsy on hold to risk of decompensation. Pulmonlogy advise against 2nd biopsy given risk. Recommends repeat CT in 4 weeks. If mass decrease in size, more possiblility its infections rather than malignancy. (4) Diabetes (5) Gout (6) Spinal stenosis - Symptom Scale (1) Dyspnea 0-10 Scale: Unable to quantify (2) Pain 0-10 Scale: Unable to quantify Pertinent Non-Medical Issues: Psychosocial: Retired. He was living at home with his Tommie Gutierrez and his son "Cristina Palmer. Recently returned from 3 month trip to [place]. Speaks Mandarin only. He also has another son who had just arrive from [place]. He is awaiting for his grandson to arrive also from [place]. Spiritual: unk at this time Legal: Per [place] statutes legal decision maker proxy is pt's . It appears she may have been deferring to son but has been present for major decisions. Family appears to be working together. Ethical issues impacting care: no issues identified Important Contacts: Spencer Reilly [phone] Son "Cristina Palmer [phone] Prognosis: 77 yo critically ill pt with respiratory failure, possible malignant lung nodules vs infection, underlying diastolic heart failure and DM. Prognosis is challenging at this point Pt has made some progress neurologically, wiggling his toes, and movement of upper ext. Prognosis for recovery may be impeded risk for infections bedsores, deconditioning and various complications remains. Code Status: Alternative Code Plan: CODE STATUS - Alternate- no shock, no compression, no acls drugs. Just intubation. Capacity- he does not appears to be able to weigh the risk and benefits of decision on my visit. Alertness has improved. He does not appear to have insight or can weigh the risk and benefits. Remains lethargic and tired. LEGAL DECISION MAKER - per [place] statutes is proxy , who defers decisions to son, [place], family all working together. Family meetings-palliative has met at length with patient's family multiple times. Today (10/08) meeting warranted by questions pt's exhibiting neurological improvement and mentation. Met with patient spouse, and 2 sons. [employer] was used for translation. Answered their questions concerning passy dereck valve. Reviewed imaging, labs. I informed family, I have d/w with pulmonology and pt need to be stronger before passy dereck valve can be done. I also update family on lung lesions/mass. I inform them that possibility of cancer remains, but could be infections from pulmonolgy perspective. Earlier critical medicine have felt it may more likely be malignancy. Pulmonology has said biopsy right now would be too dangerous, and may lead to decompensation. Their recommendation is follow up CT in 4 weeks. Family agree and does not want pt to undergo another biopsy at this time. We spoke about neurologically compare to 2 weeks ago he has made some improvement (from essentially quadreplegia to able to move both ext, and wiggling of toes). I did say for now only time will tell how much more he can improve. Family is aware of risk of sudden decline, setback, and decompensation. Goals are aggressive short of alt code. SYMPTOMS * shortness of breath - 2/2 pleural effusions, underlying diastolic heart failure. Questionable malignancy, hx remote TB. O. Status post tracheostomy. appears stable currently * pain - ?cause? presented with right side and thoracic pain. imaging showing lung nodules. BX benign, ?repeat. 0/10 pain per nursing scores. appears comfortable, no signs of pain on exam. family endorse pt decribe lower ab pain. Oxycodone is available. Palliative care will continue to follow during hospital course as condition evolves to assist patient/decision maker with understanding of medical conditions, benefits/burdens of treatment options, clarification of goals of treatment, and will assist with symptoms of palliative concern. Attestation Attestation: To help prompt me to consider important information that might be impacting today's encounter and assessment, information from prior notes written by myself or my colleagues may have been "brought forward" into today's note. My signature on this note, however, is an attestation that I personally performed the exam, history, and/or decision-making noted today, and, unless otherwise indicated, the interactions with patient, family, and staff as well as the review of records all occurred today. I also attest that the listed assessment and stated plan reflect my best clinical judgment today based on the combination of historical information, prior notes, and today's exam/ interactions. When time spent is documented, it refers only to time spent today by the signer, or if indicated, combined time spent today by collaborating physician/nurse practitioner.
--- NOTE | 2017-10-08 15:33 | P.PNNS ---
Subjective Interval history: 10/08: no neuro changes, palliative care following. Physical Exam Vital signs: Vital Signs 10/07/17 16:00 10/07/17 19:24 10/07/17 20:00 Temperature 97.8 F 98.6 F Pulse Rate 85 102 H 100 H Respiratory Rate 22 26 H Blood Pressure 119/56 L 120/60 Pulse Oximetry 97 94 L 93 L 10/08/17 00:00 10/08/17 03:11 10/08/17 04:00 Temperature 98.1 F 98.4 F Pulse Rate 102 H 92 H Respiratory Rate 26 H 21 Blood Pressure 119/68 111/57 L Pulse Oximetry 98 96 95 10/08/17 07:48 10/08/17 08:00 10/08/17 10:00 Temperature 98.7 F Pulse Rate 108 H 109 H 77 Respiratory Rate 23 26 H Blood Pressure 143/78 H Pulse Oximetry 93 L 91 L 10/08/17 12:00 10/08/17 14:00 Temperature 98.6 F Pulse Rate 82 74 Respiratory Rate 20 Blood Pressure 125/69 Pulse Oximetry 93 L Intake & Output 10/07/17 10/08/17 10/08/17 18:59 06:59 18:59 Intake Total 1124 / 1124 715 / 715 Output Total 800 / 800 850 / 850 Balance 324 / 324 -135 / -135 Weight 64.2 kg Intake: Tube Feeding 524 / 524 715 / 715 Tube Irrigant 600 / 600 Output: Urine Amount (Catheter) 800 / 800 850 / 850 Indwelling Urethral Catheter 800 / 800 850 / 850 Other: Date of Last Bowel Movement 10/07/17 # Bowel Movements 1 Narrative: Awake, eyes open. Not following commands [place] collar in place Intermittent movement left upper extremity, no movements in LEs Tracheostomy - Urinary Catheter Management Indwelling Urethral Catheter Cath placed during this visit: yes Reason for continuing: Terminally ill/Comfort care Insertion date: 08/20/17 Insertion time: 17:00 Assessment and Plan - Plan Impression: 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 s/p: C3-5 laminoplasty 09/19/17 Cervical Spine MRI 09/25/17 00:00 CONCLUSION: 1. Status post laminectomy at the C3-C5 levels. Surgical hardware seen at the posterior elements at these levels. 2. Moderate stenosis at the C4-C5 level secondary to disc bulge and central disc protrusion. There is abnormal signal again seen within the cord. The cord appears small this region. This likely secondary to myelomalacia. 3. Mild to moderate narrowing of the thecal sac at the C5-C6 and C6-C7 level. 4. Neural foraminal narrowing throughout the cervical spine as described above. Plan: cont medical management palliative care following cont [place] J cervical collar at all times
--- NOTE | 2017-10-08 15:50 | P.PN ---
Subjective Interval history: awake and alert patient ff commands for me on exam- moving the left sided extremities more- Physical Exam Vital signs: Vital Signs 10/07/17 16:00 10/07/17 19:24 10/07/17 20:00 Temperature 97.8 F 98.6 F Pulse Rate 85 102 H 100 H Respiratory Rate 22 26 H Blood Pressure 119/56 L 120/60 Pulse Oximetry 97 94 L 93 L 10/08/17 00:00 10/08/17 03:11 10/08/17 04:00 Temperature 98.1 F 98.4 F Pulse Rate 102 H 92 H Respiratory Rate 26 H 21 Blood Pressure 119/68 111/57 L Pulse Oximetry 98 96 95 10/08/17 07:48 10/08/17 08:00 10/08/17 10:00 Temperature 98.7 F Pulse Rate 108 H 109 H 77 Respiratory Rate 23 26 H Blood Pressure 143/78 H Pulse Oximetry 93 L 91 L 10/08/17 12:00 10/08/17 14:00 Temperature 98.6 F Pulse Rate 82 74 Respiratory Rate 20 Blood Pressure 125/69 Pulse Oximetry 93 L Intake & Output 10/07/17 10/08/17 10/08/17 18:59 06:59 18:59 Intake Total 1124 / 1124 715 / 715 Output Total 800 / 800 850 / 850 Balance 324 / 324 -135 / -135 Weight 64.2 kg Intake: Tube Feeding 524 / 524 715 / 715 Tube Irrigant 600 / 600 Output: Urine Amount (Catheter) 800 / 800 850 / 850 Indwelling Urethral Catheter 800 / 800 850 / 850 Other: Date of Last Bowel Movement 10/07/17 # Bowel Movements 1 Narrative: Awake, eyes open. ff commands, awake and alert anciteric', pupils equal + tracking tracheostomy in place- 35% lungs- no rales regular rhythm abdomen soft, PEG in place extremities no edema ceja in place motor able to move the left sided extremities- 3/5 more than right 1/5 - Urinary Catheter Management Indwelling Urethral Catheter Cath placed during this visit: yes Reason for continuing: Terminally ill/Comfort care Insertion date: 08/20/17 Insertion time: 17:00 Results - Labs CBC & Chem 7: 10/06/17 04:20 10/06/17 04:20 Laboratory Results - last 24 hr 0710/08/17 10/08/17 20:35 02:47 08:57 POC Glucose 144 H 129 H 115 H 10/08/17 13:47 POC Glucose 151 H - Procedures 08/23- intubation 09/03- bronchoscopy, lung biopsy, thoaracentesis 09/08- tracheostomy 09/11- PEG placement Assessment and Plan - Plan This is a 77-year-old Lithuan[place] male admitted 08/21/2017, with history of hypertension, gout and diabetes mellitus presenting initially with intermittent pain in his groin, upper thorax and around his back. CT angiogram showed bilateral emphysema and pulmonary nodules with compressive atelectasis of the right lower lobe. Biopsy was done which showed chronic inflammation reactive fibroblastic tissue. Patient was also found to have severe spinal stenosis, status post laminectomy. Patient's hospital stay was complicated by septic shock secondary to healthcare associated pneumonia and C. difficile colitis. Severe cervical spinal stenosis, status post C2 hemilaminectomy, C3 through 5 lamina plasty with quadriplegia and acute spinal injury. Toxic metabolic encephalopathy. - MRI C-spine 09/15: Focal severe spinal canal stenosis at C4-5. Moderate diffuse broad-based bulging at C3-4 with some mild increased signal in the spinal cord at this level. Moderate spinal canal stenosis at C6-C7 Bilateral facet arthritis at multiple levels. Head CT 08/23: 2 questionable tiny focal hemorrhages. MRI of brain 08/26 chronic small vessel ischemic and atrophic changes. EEG 09/03 revealed severe encephalopathy. No epileptiform activity - Neurosurgery Dr. Victor consulted, Poor chance of neurological recovery for him , recent discussion with Dr. Smith and son, no further surgical intervention per son. - Neurology Dr. Carvalho. Per his recommendations was placed on high dose solumedrol 250 mg every 6 hours, d/w Dr. Carvalho 10/06 , taper steroids to off over 2-3 weeks. Was switch to oral 10/07 and taper accordingly. - Continue Tylenol, oxycodone, morphine, physical therapy. Uncontrolled hypertension- - BP improved Atherosclerotic coronary artery disease, Atrial fibrillation- now in SR on telemetry -Continue metoprolol and digoxin, previously on amiodarone was stopped because of bradycardia. BP is better, in fact soft, decrease metoprolol to 25 mg BID Acute, now chronic hypoxic hypercapnic respiratory failure secondary to COPD exacerbation, Trach site infection, Bilateral pleural effusion/status post chest tube right- sided transudative in nature. Chest tube removed 09/04 Multiple bilateral pulmonary masses vs infiltrate, RML mass vs consolidation -CT pulmonary angiogram revealed multiple masses. Lung mass biopsied on August 28 showed CHRONIC INFLAMMATORY AND REACTIVE FIBROBLASTIC TISSUE CONTAINING ENTRAPPED BENIGN EPITHELIUM, plan is reconsult IR 09/08 for repeat biopsy however patient is not stable. - Followed by Dr. Hardy/pulmonology. Reconsulted 09/08, recommended repeat CT in 4 weeks and to hold off IR guided biopsy due to respiratory and neuro status. s/p percutaneous tracheostomy 09/08 ([facility]), Status post thoracentesis left side 09/09 with 1 L fluid removed. No evidence of infection. Chest tubes removed 09/04/2017. -Continue T-piece, continue budesonide, DuoNeb's, Levsin for secretions - Pulmonary consulted for decannulation, CXR still shows bilateral infiltrates, keep on T-bar at 30% - decannulation per pulmonary. PMV ang pulmonary. Hypoalbuminemia Acute protein calorie malnutrition -severe -s/p PEG 09/11. Tolerating tube feeds with Glucerna 1.5 at 55 cc an hour, free water flushes 300 cc every 6 hours Urinary retention, possible urinary stricture Acute kidney injury Maintain Ceja catheter. Monitor urine output, Accurate I's and O's, significant difficulty due to obstruction which may be urethral stricture which prevented serial i/o Diabetes mellitus Sliding scale insulin with NovoLog high regimen to maintain euglycemia. Currently on insulin detemir 10 units subq twice daily Severe sepsis - resolved Trach site infection - resolved Healthcare associated pneumonia - resolved C. difficile colitis - resolved. - Status post bronchoscopy 09/03 cultures negative, Appreciate ID input. PO vancomycin completed 09/30. Still with lose stools, d/c stool softeners, leukocytosis resolved. FEN: Hypernatremia - resolved Prophylaxis -GI -lansoprazole. DVT -SCD/heparin subcutaneous Disposition: This gentleman remains weak and debilitated, functionally quadriparetic. Long-term prognosis for a meaningful recovery is quite poor. The best we can probably hope for is a skilled facility, continue t-piece trials and now working towards placement and decanulation. Patient awaiting bed at the long-term vent unit. Palliative care ff along with us Alternative Code Candidate for ALC once consultants have signed off.
--- NOTE | 2017-10-08 19:17 | P.PN ---
Subjective Interval history: He is awake and moving left arm and Foot. On a T bar at 30 % and trach site is clear. Physical Exam Vital signs: Vital Signs 10/07/17 19:24 10/07/17 20:00 10/08/17 00:00 Temperature 98.6 F 98.1 F Pulse Rate 102 H 100 H 102 H Respiratory Rate 22 26 H 26 H Blood Pressure 120/60 119/68 Pulse Oximetry 94 L 93 L 98 10/08/17 03:11 10/08/17 04:00 10/08/17 07:48 Temperature 98.4 F Pulse Rate 92 H 108 H Respiratory Rate 21 23 Blood Pressure 111/57 L Pulse Oximetry 96 95 93 L 10/08/17 08:00 10/08/17 10:00 10/08/17 12:00 Temperature 98.7 F 98.6 F Pulse Rate 109 H 77 82 Respiratory Rate 26 H 20 Blood Pressure 143/78 H 125/69 Pulse Oximetry 91 L 93 L 10/08/17 14:00 10/08/17 16:00 10/08/17 18:00 Temperature 98.5 F Pulse Rate 74 86 92 H Respiratory Rate 22 Blood Pressure 131/65 Pulse Oximetry 95 Intake & Output 10/08/17 10/08/17 10/09/17 06:59 18:59 06:59 Intake Total 715 / 715 1195 / 1195 Output Total 850 / 850 1525 / 1525 Balance -135 / -135 -330 / -330 Weight 64.2 kg Intake: Tube Feeding 715 / 715 595 / 595 Water Bolus Amount 600 / 600 Output: Urine Amount (Catheter) 850 / 850 1525 / 1525 Indwelling Urethral Catheter 850 / 850 1525 / 1525 Other: Date of Last Bowel Movement 10/07/17 10/08/17 # Bowel Movements 1 1 # Incontinent Bowel Movements 1 Narrative: Awake, and alert and in no distress anicteric, pupils equal + tracking tracheostomy in place- 35% FIo2 lungs- Decreased breath sounds. no rales regular rhythm and no Murmur. abdomen soft, PEG in place extremities no edema ceja in place motor able to move the left sided extremities- 3/5 more than right 1/5 - Urinary Catheter Management Indwelling Urethral Catheter Cath placed during this visit: yes Reason for continuing: Terminally ill/Comfort care Insertion date: 08/20/17 Insertion time: 17:00 Results - Labs CBC & Chem 7: 10/06/17 04:20 10/06/17 04:20 Laboratory Results - last 24 hr 10/07/17 10/08/17 10/08/17 20:35 02:47 08:57 POC Glucose 144 H 129 H 115 H 10/08/17 13:47 POC Glucose 151 H - Procedures 08/23- intubation 09/03- bronchoscopy, lung biopsy, thoaracentesis 09/08- tracheostomy 09/11- PEG placement Assessment and Plan - Assessment (1) Cervical myelopathy Code(s): G95.9 - Disease of spinal cord, unspecified Status: Acute (2) Respiratory failure Code(s): J96.90 - Respiratory failure, unspecified, unspecified whether with hypoxia or hypercapnia Status: Acute (3) SVT (supraventricular tachycardia) Code(s): I47.1 - Supraventricular tachycardia Status: Acute (4) Lung mass Code(s): R91.8 - Other nonspecific abnormal finding of lung field Status: Acute (5) Diabetes Code(s): E11.9 - Type 2 diabetes mellitus without complications Status: Acute (6) Gout Code(s): M10.9 - Gout, unspecified Status: Acute (7) Spinal stenosis Code(s): M48.00 - Spinal stenosis, site unspecified Status: Acute (8) Dyspnea Code(s): R06.00 - Dyspnea, unspecified Status: Acute - Plan 1. T Bar at 30 % FIO2 and wean to keep sat >92 . 2. Trach lavage and suction PRN 3. Duoneb nebs qid. 4. Chest Xray 5. Tube feeds at 60CC 6. PT Evaluation for activity 7. Transfer to LTAC soon
[2017-10-09] MEDS: Oral Hygiene Kit OROPHARYNG SCH ×4 (00:24→15:50)
[2017-10-09] MEDS: Insulin NovoLOG Aspart Correctional Sugar Inj SQ SCH ×4 (02:32→21:32)
[2017-10-09] MEDS: Chlorhexidine Gluconate 2% 1 Pack (2 Cloths) TOPICAL SCH (03:55)
--- NOTE | 2017-10-09 05:30 | XR ---
EXAM DATE: 10/09/2017 4:29 AM EDT AGE/SEX: 77 years / Male INDICATIONS: Respiratory distress CLINICAL DATA: This is the patient's subsequent encounter. Patient reports that signs and symptoms h ave been present for 2 months and indicates a pain score of Nonresponsive. MEDICAL/SURGICAL HISTORY: . Hypertension. Diabetes mellitus type II. Emphysema. TB, Afib None. COMPARISON: C, CHEST 1V SINGLE AP, 10/06/2017. . FINDINGS: A single AP view of the chest demonstrates hyperinflation with probable emphysematous changes most pr ominent in the apices. Persistent left basilar consolidation/effusion. Heart size is normal. Tracheos mirella tube is unchanged in position. CONCLUSION: 1. Hyperinflation with probable emphysematous changes in the apices. 2. Persistent left basilar consolidation/effusion. 3. No significant interval change Electronically signed by: Deven Flaherty MD 10/09/2017 5:29 AM EDT
[2017-10-09] MEDS: Artificial Tears Opth Drops 15 ML Bottle EACH EYE SCH ×3 (06:30→21:34)
[2017-10-09] MEDS: Chlorhexidine 0.12% Oral Kit 15 ML UDC SWISH-SPIT SCH ×2 (07:35→21:34)
[2017-10-09] MEDS: Metoprolol Tartrate 50 MG Tablet PO SCH ×2 (09:01→21:02)
[2017-10-09] MEDS: Beneprotein Powder Packet G-TUBE SCH ×3 (09:02→17:36)
[2017-10-09] MEDS: Insulin Detemir Inj 1,000 UNIT/10 ML Vial SQ SCH ×2 (09:02→21:33)
--- NOTE | 2017-10-09 09:49 | P.PNNS ---
Subjective Interval history: 09/16: 77-year-old male admitted on August 21, 2017 with initial complaint of chest pain and right upper quadrant abdominal pain. His initial evaluation revealed multiple pulmonary lesions with pleural effusion. However cytology from thoracentesis and lung biopsy were negative for malignancy. He initially required a tracheostomy placement. He has been on ventilatory support, with sedation recently weaned over the past few days. There was noted within the past day or 2 that he has not been moving his extremities, and an MRI of the cervical spine was subsequently obtained on 09/15/2017. This has revealed severe cervical stenosis with significant abnormal signal intensity within the cord. Review of his records indicates the patient to be moving all extremities during the first week or so of his hospitalization, although it is difficult to determine the grade of his motor function, with the patient very ill and apparently generally weak upon his initial presentation. Physical therapy notes reviewed, however therapy has not been able to consistently work with the patient due to his pulmonary problems and subsequent intubation and sedation. 06/18: Pt awake. Not verbalizing. Not following commands consistently tries to stick out tongue to command. 09/18: The patient is awake in bed. He is trached and on CPAP/PSV settings. He does look at this practitioner and tracks. He did not follow any commands. There was a trace of left foot movement to noxious stimulation. He did have facial grimacing also to noxious stimulation. Nursing reports that he did stick out his tongue after she demonstrated it. She also says that the patient squeezed with the left hand once but did not repeat it. 09/19: The patient went for a C3-5 laminoplasty and post-operatively was transferred back to the ISC unit. 09/20: Patient intubated 09/22: Intubated. Off sedation for examination 09/24: When seen this morning the patient is awake. He has no sedation infusing. He is trached and on CPAP. He is tachypneic and Nursing reports that he is having a harder time handling it today. She reported that he was moving the left upper spontaneously earlier. During evaluation he did not response to any stimuli but subsequently did move the left hand fingers slightly. Dr Srivastava with Palliative Care is to meet with the patient's son this morning. 09/25: Spoke with Palliative Care this morning who said family has made the patient essentially a no code. He believes they are leaning toward withdrawal but are waiting for a family member to travel here. The patient is awake and alert when seen. He is seen moving the left hand spontaneously after stimulation but has no response to noxious stimulation with the other extremities. 09/27: This morning the patient is awake and having an IV line placed by the Vascular Access team. He was seen spontaneously moving the left upper extremity prior to being seen. He nods his head slightly when told "hello" in [place]. He is still trached and on CPAP/PSV settings. He did not have any response to noxious stimulation of the right upper or either lower extremity. A review of Palliative Care's note yesterday indicates the family is still waiting for a family member to arrive from [place] before considering comfort measures. 09/28: Today the patient is awake and alert. He is still trached but on a T- piece. Nursing does report that he has been on the T-piece overnight. She reports that he is tachypneic but maintaining his oxygen saturation. When greeted in Turk[place] he reached his left hand up off the bed for this practitioner 's hand. He did have slight movement of the right hand to command. There was no response to the lower extremities to any stimulation. 09/29: The patient is awake when seen. He is trached and still on the T-piece but he is tachypneic. He is seen moving the left upper extremity spontaneously. He had no response to noxious stimulation with the other extremities. 09/30: When seen the patient is asleep but he did open his eyes to voice. He remains trached and on a T-piece. He does spontaneously move the left upper extremity and moves it to noxious stimulation of the lower extremities. He had no extremity response with noxious stimulation to that extremity. 10/01: trached on t-piece. reports spontaneous movements left upper, no movements seen right upper and b/l LE. 10/02: no changes neuro checks overnight 10/03: Pt opens eyes to voice. Possibly closing eyes and opening them to command. He has some spontaneous flexion movement with left elbow but not following commands for muscle testing. Trach collar in place on humidified O2. 10/04: Pt more awake and alert this morning. Not following commands. He nods no to questions. Denies pain. Spontaneously moves left arm at elbow but not moving fingers or following commands. 10/05: Pt awake. He follows by mimicking. No movement in LEs or RUE. Some spontaneous movement in Left upper extremity at elbow not hand or proximally. [place] collar remains intact. 10/06: reports some minimal movement right upper, otherwise no significant changes to neuro checks 10/07/17: Pt awake. Opens mouth by mimicking. Not following other commands. 10/08: no neuro changes, palliative care following. 10/09: This morning the patient is asleep but opens his eyes when greeted in [place]. He does lift his left upper extremity to demonstration but does not move the other extremities to command/demonstration or noxious stimulation. The [place] cervical collar is in place. Physical Exam Vital signs: Vital Signs 10/08/17 10:00 10/08/17 12:00 10/08/17 14:00 Temperature 98.6 F Pulse Rate 77 82 74 Respiratory Rate 20 Blood Pressure 125/69 Pulse Oximetry 93 L 10/08/17 16:00 10/08/17 18:00 10/08/17 19:49 Temperature 98.5 F Pulse Rate 86 92 H 106 H Respiratory Rate 22 20 Blood Pressure 131/65 Pulse Oximetry 95 94 L 10/08/17 20:00 10/08/17 22:00 10/09/17 00:00 Temperature 98.1 F 98.6 F Pulse Rate 104 H 100 H 84 Respiratory Rate 31 H 23 Blood Pressure 133/78 101/61 Pulse Oximetry 100 95 10/09/17 02:00 10/09/17 03:28 10/09/17 04:00 Temperature 98.2 F Pulse Rate 82 86 Respiratory Rate 26 H Blood Pressure 112/64 Pulse Oximetry 95 95 10/09/17 06:00 10/09/17 07:00 10/09/17 08:00 Temperature 97.7 F Pulse Rate 98 H 82 Respiratory Rate 15 Blood Pressure 131/70 Pulse Oximetry 99 99 10/09/17 09:10 Temperature Pulse Rate 78 Respiratory Rate 16 Blood Pressure Pulse Oximetry 100 Intake & Output 10/08/17 10/09/17 10/09/17 18:59 06:59 18:59 Intake Total 1195 / 1195 1263 / 1263 Output Total 1525 / 1525 1150 / 1150 Balance -330 / -330 113 / 113 Weight 64.9 kg Intake: Tube Feeding 595 / 595 663 / 663 Water Bolus Amount 600 / 600 600 / 600 Output: Urine Amount (Catheter) 1525 / 1525 1150 / 1150 Indwelling Urethral Catheter 1525 / 1525 1150 / 1150 Other: Date of Last Bowel Movement 10/08/17 10/08/17 # Bowel Movements 1 # Incontinent Bowel Movements 1 Narrative: GENERAL: Asleep but opens eyes to voice. Trached and on T-piece. Sinus rhythm on the monitor with normal respiratory rate when seen. HEENT: Normocephalic, atraumatic. Pupils equal 2mm reactive. NECK: The [place] cervical collar is in place. Surgical incision well approximated. No JVD. Trachea midline. MUSCULOSKELETAL: No evident clubbing or deformity. Dependent edema to all extremities. Moving left upper extremity to demonstration. NEUROLOGICAL: Asleep but awakens to voice. Trached, nonverbal. Moving LUE to demonstration. No response to local noxious stimulation of the RUE or BLE other than facial grimacing. - Urinary Catheter Management Indwelling Urethral Catheter Cath placed during this visit: yes Reason for continuing: Terminally ill/Comfort care Insertion date: 08/20/17 Insertion time: 17:00 Assessment and Plan - Plan Impression: 1. 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 2. Sepsis 3. Respiratory failure, tracheostomy in place. Now on CPAP "Advised the patient's son that a more extensive decompression could be pursued with full laminectomy and fusion, however this may be associated with its own increase chance of failed fusion, wound healing issues and more extensive anesthesia time. Realistically given the severe degree of atrophy and myelomalacia within the cord, it is unlikely that the patient will have any better outcome with a more aggressive decompression and stabilization procedure. The patient's son appears to understand this and indicates that he does not wish to try to pursue any further surgical intervention. I advised him that chance of any recovery of sensorimotor function is very slim, and if it does occur it could take several months. I advised him that it is highly unlikely that with any treatment the patient would be ambulatory again." - Dr Victor at 1924 Patient asleep but awakens to voice. LUE movement in response to command/ demonstration. No other extremity response w/noxious stimulation. Past 24 hrs: Afebrile. Intermittent tachycardia & tachypnea. No labs for today. Cervical Spine MRI 09/25/17 00:00 CONCLUSION: 1. Status post laminectomy at the C3-C5 levels. Surgical hardware seen at the posterior elements at these levels. 2. Moderate stenosis at the C4-C5 level secondary to disc bulge and central disc protrusion. There is abnormal signal again seen within the cord. The cord appears small this region. This likely secondary to myelomalacia. 3. Mild to moderate narrowing of the thecal sac at the C5-C6 and C6-C7 level. 4. Neural foraminal narrowing throughout the cervical spine as described above. "Follow-up MRI 09/25/2017 images reveal good central decompression of the spinal cord in the mid to upper cervical region. There may be a small amount of epidural hematoma along the left side without significant canal compromise. There is significant thinning of the spinal cord at the previous C4-5 stenotic region with persistent increased signal intensity not significantly changed compared to preoperative study." - Dr Victor at 1916 s/p: C3-5 laminoplasty Plan: Primary & critical care management per Physical Ther. Palliative Care following. [place] cervical collar at all times. No further surgical interventions per son. shelter care facility when medically stable. Follow up with Neurosurgery outpatient every 6 weeks from surgery with follow up cervical x-rays.
--- NOTE | 2017-10-09 15:32 | P.PN ---
Subjective Interval history: seen with at bedside patient awake and alert ff commands- was able to moveleft hand/wrist movement/ finger better compared to right tolerating tube feedings Physical Exam Vital signs: Vital Signs 10/08/17 16:00 10/08/17 18:00 10/08/17 19:49 Temperature 98.5 F Pulse Rate 86 92 H 106 H Respiratory Rate 22 20 Blood Pressure 131/65 Pulse Oximetry 95 94 L 10/08/17 20:00 10/08/17 22:00 10/09/17 00:00 Temperature 98.1 F 98.6 F Pulse Rate 104 H 100 H 84 Respiratory Rate 31 H 23 Blood Pressure 133/78 101/61 Pulse Oximetry 100 95 10/09/17 02:00 10/09/17 03:28 10/09/17 04:00 Temperature 98.2 F Pulse Rate 82 86 Respiratory Rate 26 H Blood Pressure 112/64 Pulse Oximetry 95 95 10/09/17 06:00 10/09/17 07:00 10/09/17 08:00 Temperature 97.7 F Pulse Rate 98 H 82 Respiratory Rate 15 Blood Pressure 131/70 Pulse Oximetry 99 99 10/09/17 09:10 10/09/17 10:00 10/09/17 12:00 Temperature 97.8 F Pulse Rate 78 85 78 Respiratory Rate 16 24 Blood Pressure 112/60 Pulse Oximetry 100 95 10/09/17 14:00 Temperature Pulse Rate 93 H Respiratory Rate Blood Pressure Pulse Oximetry Intake & Output 10/08/17 10/09/17 10/09/17 18:59 06:59 18:59 Intake Total 1195 / 1195 1263 / 1263 Output Total 1525 / 1525 1150 / 1150 Balance -330 / -330 113 / 113 Weight 64.9 kg Intake: Tube Feeding 595 / 595 663 / 663 Water Bolus Amount 600 / 600 600 / 600 Output: Urine Amount (Catheter) 1525 / 1525 1150 / 1150 Indwelling Urethral Catheter 1525 / 1525 1150 / 1150 Other: Date of Last Bowel Movement 10/08/17 10/08/17 # Bowel Movements 1 # Incontinent Bowel Movements 1 Narrative: Awake, eyes open. ff commands, awake and alert anicteric pupils equal , more interactive today on exam tracheostomy in place- 35% lungs- no rales regular rhythm abdomen soft, PEG in place extremities no edema ceja in place motor able to move the left hand/wrist fingers more than right - just tips of the fingers able to wiggle toes slightly today - Urinary Catheter Management Indwelling Urethral Catheter Cath placed during this visit: yes Reason for continuing: Terminally ill/Comfort care Insertion date: 08/20/17 Insertion time: 17:00 Results - Labs CBC & Chem 7: 10/06/17 04:20 10/06/17 04:20 Laboratory Results - last 24 hr 10/08/17 10/09/17 10/09/17 19:48 02:27 07:32 POC Glucose 160 H 124 H 122 H 10/09/17 13:47 POC Glucose 150 H - Imaging Impressions Chest X-Ray 10/09/17 00:00 CONCLUSION: - Procedures 08/23- intubation 09/03- bronchoscopy, lung biopsy, thoaracentesis 09/08- tracheostomy 09/11- PEG placement Assessment and Plan - Plan This is a 77-year-old [place] male admitted 08/21/2017, with history of hypertension, gout and diabetes mellitus presenting initially with intermittent pain in his groin, upper thorax and around his back. CT angiogram showed bilateral emphysema and pulmonary nodules with compressive atelectasis of the right lower lobe. Biopsy was done which showed chronic inflammation reactive fibroblastic tissue. Patient was also found to have severe spinal stenosis, status post laminectomy. Patient's hospital stay was complicated by septic shock secondary to healthcare associated pneumonia and C. difficile colitis. Severe cervical spinal stenosis, status post C2 hemilaminectomy, C3 through 5 lamina plasty with quadriplegia and acute spinal injury. Toxic metabolic encephalopathy. - MRI C-spine 09/15: Focal severe spinal canal stenosis at C4-5. Moderate diffuse broad-based bulging at C3-4 with some mild increased signal in the spinal cord at this level. Moderate spinal canal stenosis at C6-C7 Bilateral facet arthritis at multiple levels. Head CT 08/23: 2 questionable tiny focal hemorrhages. MRI of brain 08/26 chronic small vessel ischemic and atrophic changes. EEG 09/03 revealed severe encephalopathy. No epileptiform activity - Neurosurgery Dr. Victor consulted, Poor chance of neurological recovery for him , recent discussion with Dr. Smith and son, no further surgical intervention per son. - Neurology Dr. Carvalho. Per his recommendations was placed on high dose solumedrol 250 mg every 6 hours, d/w Dr. Carvalho 10/06 , taper steroids to off over 2-3 weeks. Was switch to oral 10/07 and taper accordingly. - Continue Tylenol, oxycodone, morphine, physical therapy. Uncontrolled hypertension- - BP improved Atherosclerotic coronary artery disease, Atrial fibrillation- now in SR on telemetry -Continue metoprolol and digoxin, previously on amiodarone was stopped because of bradycardia. BP is better, in fact soft,now metoprolol to 25 mg BID Acute, now chronic hypoxic hypercapnic respiratory failure secondary to COPD exacerbation, Trach site infection, Bilateral pleural effusion/status post chest tube right- sided transudative in nature. Chest tube removed 09/04 Multiple bilateral pulmonary masses vs infiltrate, RML mass vs consolidation -CT pulmonary angiogram revealed multiple masses. Lung mass biopsied on August 28 showed CHRONIC INFLAMMATORY AND REACTIVE FIBROBLASTIC TISSUE CONTAINING ENTRAPPED BENIGN EPITHELIUM, plan is reconsult IR 09/08 for repeat biopsy however patient is not stable. - Followed by Dr. Hardy/pulmonology. Reconsulted 09/08, recommended repeat CT in 4 weeks and to hold off IR guided biopsy due to respiratory and neuro status. s/p percutaneous tracheostomy 09/08 (Michellea/Michael), Status post thoracentesis left side 09/09 with 1 L fluid removed. No evidence of infection. Chest tubes removed 09/04/2017. -Continue T-piece, continue budesonide, DuoNeb's, Levsin for secretions - Pulmonary ff decannulation, CXR still shows bilateral infiltrates, keep on T- bar at 30% - decannulation per pulmonary. PMV ang pulmonary. Hypoalbuminemia Acute protein calorie malnutrition -severe -s/p PEG 09/11. Tolerating tube feeds with Glucerna 1.5 at 55 cc an hour, free water flushes 300 cc every 6 hours Urinary retention, possible urinary stricture Acute kidney injury Maintain Ceja catheter. Monitor urine output, Accurate I's and O's, significant difficulty due to obstruction which may be urethral stricture which prevented serial i/o Diabetes mellitus Sliding scale insulin with NovoLog high regimen to maintain euglycemia. Currently on insulin detemir 10 units subq twice daily Severe sepsis - resolved Trach site infection - resolved Healthcare associated pneumonia - resolved C. difficile colitis - resolved. - Status post bronchoscopy 09/03 cultures negative, Appreciate ID input. PO vancomycin completed 09/30. Still with lose stools, d/c stool softeners, leukocytosis resolved. FEN: Hypernatremia - resolved on PEG TF - speech therapy consult- swallowing evaluation Prophylaxis -GI -lansoprazole. DVT -SCD/heparin subcutaneous Disposition: This gentleman remains weak and debilitated, functionally quadriparetic. Long-term prognosis for a meaningful recovery is quite poor. The best we can probably hope for is a skilled facility, continue t-piece trials and now working towards placement and decanulation. Patient awaiting bed at the long-term vent unit. Palliative care ff along with us Alternative Code Candidate for [facility] once consultants have signed off.
[2017-10-10] MEDS: Oral Hygiene Kit OROPHARYNG SCH ×4 (00:35→16:37)
[2017-10-10] MEDS: Insulin NovoLOG Aspart Correctional Sugar Inj SQ SCH ×4 (02:17→19:50)
[2017-10-10] MEDS: Hyoscyamine Inj 0.5 MG/ML Ampul IV.PUSH PRN ×2 (02:20→16:39)
[2017-10-10] MEDS: Chlorhexidine Gluconate 2% 1 Pack (2 Cloths) TOPICAL SCH (05:11)
[2017-10-10] MEDS: Artificial Tears Opth Drops 15 ML Bottle EACH EYE SCH ×3 (06:16→23:03)
--- NOTE | 2017-10-10 09:01 | P.PN ---
Subjective Interval history: awake and alert gripped with his left hand when held tolerating tube feedings Physical Exam Vital signs: Vital Signs 10/09/17 09:10 10/09/17 10:00 10/09/17 12:00 Temperature 97.8 F Pulse Rate 78 85 78 Respiratory Rate 16 24 Blood Pressure 112/60 Pulse Oximetry 100 95 10/09/17 14:00 10/09/17 16:00 10/09/17 20:00 Temperature 97.8 F 96.9 F L Pulse Rate 93 H 80 82 Respiratory Rate 18 20 Blood Pressure 121/61 99/56 L Pulse Oximetry 98 96 10/09/17 20:58 10/09/17 20:59 10/09/17 21:06 Temperature Pulse Rate 77 Respiratory Rate 18 Blood Pressure Pulse Oximetry 99 99 10/10/17 00:00 10/10/17 02:49 10/10/17 04:00 Temperature 96.2 F L 96 F L Pulse Rate 94 H 104 H Respiratory Rate 20 0 L 20 Blood Pressure 119/64 113/72 Pulse Oximetry 96 96 10/10/17 08:00 10/10/17 08:50 Temperature 96.9 F L Pulse Rate 116 H 108 H Respiratory Rate 22 24 Blood Pressure Pulse Oximetry 98 Intake & Output 10/09/17 10/10/17 10/10/17 18:59 06:59 18:59 Intake Total 950 / 950 1205 / 1205 Output Total 1050 / 1050 850 / 850 Balance -100 / -100 355 / 355 Intake: Tube Feeding 550 / 550 605 / 605 Tube Irrigant 600 / 600 Water Bolus Amount 400 / 400 Output: Urine Amount (Catheter) 1050 / 1050 850 / 850 Indwelling Urethral Catheter 1050 / 1050 850 / 850 Other: # Incontinent Bowel Movements 1 Narrative: Awake, eyes open. ff commands, awake and alert anicteric pupils equal , stated his name tracheostomy in place- 35% lungs- no rales regular rhythm abdomen soft, PEG in place extremities no edema ceja in place motor able to move the left hand/wrist fingers more than right - right hand - can just move tips of the fingers wiggled toes - Urinary Catheter Management Indwelling Urethral Catheter Cath placed during this visit: yes Reason for continuing: Acute urinary retention Insertion date: 08/20/17 Insertion time: 17:00 Results - Labs CBC & Chem 7: 10/06/17 04:20 10/06/17 04:20 Laboratory Results - last 24 hr 10/09/17 10/09/17 10/10/17 13:47 20:08 02:13 POC Glucose 150 H 158 H 83 10/10/17 07:44 POC Glucose 97 - Procedures 08/23- intubation 09/03- bronchoscopy, lung biopsy, thoaracentesis 09/08- tracheostomy 09/11- PEG placement Assessment and Plan - Plan This is a 77-year-old [place] male admitted 08/21/2017, with history of hypertension, gout and diabetes mellitus presenting initially with intermittent pain in his groin, upper thorax and around his back. CT angiogram showed bilateral emphysema and pulmonary nodules with compressive atelectasis of the right lower lobe. Biopsy was done which showed chronic inflammation reactive fibroblastic tissue. Patient was also found to have severe spinal stenosis, status post laminectomy. Patient's hospital stay was complicated by septic shock secondary to healthcare associated pneumonia and C. difficile colitis. Severe cervical spinal stenosis, status post C2 hemilaminectomy, C3 through 5 lamina plasty with quadriplegia and acute spinal injury. Toxic metabolic encephalopathy. - MRI C-spine 09/15: Focal severe spinal canal stenosis at C4-5. Moderate diffuse broad-based bulging at C3-4 with some mild increased signal in the spinal cord at this level. Moderate spinal canal stenosis at C6-C7 Bilateral facet arthritis at multiple levels. Head CT 08/23: 2 questionable tiny focal hemorrhages. MRI of brain 08/26 chronic small vessel ischemic and atrophic changes. EEG 09/03 revealed severe encephalopathy. No epileptiform activity - Neurosurgery Dr. Victor consulted, Poor chance of neurological recovery for him , recent discussion with Dr. Smith and son, no further surgical intervention per son. - Neurology Dr. Carvalho. Per his recommendations was placed on high dose solumedrol 250 mg every 6 hours, d/w Dr. Carvalho 10/06 , taper steroids to off over 2-3 weeks. Was switch to oral 10/07 and taper accordingly. - Continue Tylenol, oxycodone, physical therapy. Uncontrolled hypertension- - BP improved Atherosclerotic coronary artery disease, Atrial fibrillation- now in SR on telemetry -Continue metoprolol and digoxin, previously on amiodarone was stopped because of bradycardia. BP is better, in fact soft,now metoprolol to 25 mg BID Acute, now chronic hypoxic hypercapnic respiratory failure secondary to COPD exacerbation, Trach site infection, Bilateral pleural effusion/status post chest tube right- sided transudative in nature. Chest tube removed 09/04 Multiple bilateral pulmonary masses vs infiltrate, RML mass vs consolidation -CT pulmonary angiogram revealed multiple masses. Lung mass biopsied on August 28 showed CHRONIC INFLAMMATORY AND REACTIVE FIBROBLASTIC TISSUE CONTAINING ENTRAPPED BENIGN EPITHELIUM, plan is reconsult IR 09/08 for repeat biopsy however patient is not stable. - Followed by Dr. Hardy/pulmonology. Reconsulted 09/08, recommended repeat CT in 4 weeks and to hold off IR guided biopsy due to respiratory and neuro status. s/p percutaneous tracheostomy 09/08 (Michellea/Michael), Status post thoracentesis left side 09/09 with 1 L fluid removed. No evidence of infection. Chest tubes removed 09/04/2017. -Continue T-piece, continue budesonide, DuoNeb's, Levsin for secretions - Pulmonary ff decannulation, CXR still shows bilateral infiltrates, keep on T- bar at 30% - trach in place- 28% - pulmonary toilette- d/s staff nurse and RT- Hypoalbuminemia Acute protein calorie malnutrition -severe -s/p PEG 09/11. Tolerating tube feeds with Glucerna 1.5 at 55 cc an hour, free water flushes 300 cc every 6 hours Urinary retention, possible urinary stricture Acute kidney injury Maintain Ceja catheter. Monitor urine output, Accurate I's and O's, significant difficulty due to obstruction which may be urethral stricture which prevented serial i/o Diabetes mellitus Sliding scale insulin with NovoLog high regimen to maintain euglycemia. Currently on insulin Letemir 10 units subq twice daily - good readings- check FS bid Severe sepsis - resolved Trach site infection - resolved Healthcare associated pneumonia - resolved C. difficile colitis - resolved. - Status post bronchoscopy 09/03 cultures negative, Appreciate ID input. PO vancomycin completed 09/30. Still with lose stools, d/c stool softeners, leukocytosis resolved. FEN: Hypernatremia - resolved on PEG TF - speech therapy consult- swallowing evaluation Prophylaxis -GI -lansoprazole. DVT -SCD/heparin subcutaneous Disposition: This gentleman remains weak and debilitated, functionally quadriparetic. Long-term prognosis for a meaningful recovery is quite poor. The best we can probably hope for is a skilled facility, continue t-piece trials and now working towards placement and decanulation. Patient awaiting bed at the long-term vent unit. Palliative care ff along with us Alternative Code Candidate for ALC once consultants have signed off.
[2017-10-10] MEDS: Metoprolol Tartrate 50 MG Tablet PO SCH ×2 (09:16→21:37)
[2017-10-10] MEDS: Insulin Detemir Inj 1,000 UNIT/10 ML Vial SQ SCH ×2 (09:16→21:30)
[2017-10-10] MEDS: Beneprotein Powder Packet G-TUBE SCH ×3 (09:18→17:40)
[2017-10-10] MEDS: Chlorhexidine 0.12% Oral Kit 15 ML UDC SWISH-SPIT SCH ×2 (09:20→21:37)
--- NOTE | 2017-10-10 18:52 | P.PN ---
Subjective Interval history: Seems more alert and on O2 Via trach tube 30% Moves left arm. and wiggled toe on right. Physical Exam Vital signs: Vital Signs 10/09/17 20:00 10/09/17 20:58 10/09/17 20:59 Temperature 96.9 F L Pulse Rate 82 77 Respiratory Rate 20 18 Blood Pressure 99/56 L Pulse Oximetry 96 99 10/09/17 21:06 10/10/17 00:00 10/10/17 02:49 Temperature 96.2 F L Pulse Rate 94 H Respiratory Rate 20 0 L Blood Pressure 119/64 Pulse Oximetry 99 96 10/10/17 04:00 10/10/17 08:00 10/10/17 08:50 Temperature 96 F L 96.9 F L Pulse Rate 104 H 116 H 108 H Respiratory Rate 20 22 24 Blood Pressure 113/72 Pulse Oximetry 96 98 10/10/17 12:00 10/10/17 16:00 10/10/17 17:32 Temperature 98.1 F 98.7 F Pulse Rate 98 H 89 Respiratory Rate 22 20 Blood Pressure 99/58 L 110/64 Pulse Oximetry 97 98 96 Intake & Output 10/09/17 10/10/17 10/10/17 18:59 06:59 18:59 Intake Total 950 / 950 1205 / 1205 Output Total 1050 / 1050 850 / 850 500 / 500 Balance -100 / -100 355 / 355 -500 / -500 Intake: Tube Feeding 550 / 550 605 / 605 Tube Irrigant 600 / 600 Water Bolus Amount 400 / 400 Output: Urine Amount (Catheter) 1050 / 1050 850 / 850 500 / 500 Indwelling Urethral Catheter 1050 / 1050 850 / 850 500 / 500 Other: Date of Last Bowel Movement 10/08/17 # Bowel Movements 1 # Incontinent Bowel Movements 1 1 Narrative: Awake, eyes open. ff commands, awake and alert anicteric pupils equal . tracheostomy in place- 35% lungs- Few basal crackles regular rhythm no Murmur. abdomen soft, PEG in place extremities no edema motor able to move the left hand/wrist fingers more than right - right hand - can just move tips of the fingers wiggled toes - Urinary Catheter Management Indwelling Urethral Catheter Cath placed during this visit: yes Reason for continuing: Acute urinary retention Insertion date: 08/20/17 Insertion time: 17:00 Results - Labs CBC & Chem 7: 10/06/17 04:20 10/06/17 04:20 Laboratory Results - last 24 hr 10/09/17 10/10/17 10/10/17 20:08 02:13 07:44 POC Glucose 158 H 83 97 - Imaging Impressions Chest X-Ray 10/09/17 00:00 CONCLUSION: 1. Hyperinflation with probable emphysematous changes in the apices. 2. Persistent left basilar consolidation/effusion. 3. No significant interval change - Procedures 08/23- intubation 09/03- bronchoscopy, lung biopsy, thoaracentesis 09/08- tracheostomy 09/11- PEG placement Assessment and Plan - Assessment (1) Cervical myelopathy Code(s): G95.9 - Disease of spinal cord, unspecified Status: Acute (2) Respiratory failure Code(s): J96.90 - Respiratory failure, unspecified, unspecified whether with hypoxia or hypercapnia Status: Acute (3) SVT (supraventricular tachycardia) Code(s): I47.1 - Supraventricular tachycardia Status: Acute (4) Lung mass Code(s): R91.8 - Other nonspecific abnormal finding of lung field Status: Acute (5) Diabetes Code(s): E11.9 - Type 2 diabetes mellitus without complications Status: Acute (6) Gout Code(s): M10.9 - Gout, unspecified Status: Acute (7) Spinal stenosis Code(s): M48.00 - Spinal stenosis, site unspecified Status: Acute (8) Dyspnea Code(s): R06.00 - Dyspnea, unspecified Status: Acute - Plan 1. T Bar at 30 % FIO2 and wean to keep sat >92 . 2. Trach lavage and suction PRN 3. Cont Duoneb nebs qid. 4. CBC,BMP 5. Tube feeds at 60CC 6. PT Evaluation for activity
[2017-10-11] MEDS: Oral Hygiene Kit OROPHARYNG SCH ×3 (01:09→12:00)
[2017-10-11] MEDS: Insulin NovoLOG Aspart Correctional Sugar Inj SQ SCH ×4 (01:09→20:00)
[2017-10-11] MEDS: Chlorhexidine Gluconate 2% 1 Pack (2 Cloths) TOPICAL SCH (04:28)
[2017-10-11 05:22] LABS: ABG Base Excess 9.1 mmol/L (-2-2); ABG PCO2 49 mmHg (38-42); ABG PO2 69 mmHG (61-120)
[2017-10-11] MEDS: Artificial Tears Opth Drops 15 ML Bottle EACH EYE SCH ×3 (06:20→20:00)
--- NOTE | 2017-10-11 07:27 | XR ---
EXAM DATE: 10/11/2017 7:22 AM EDT AGE/SEX: 77 years / Male INDICATIONS: Shortness of breath. CLINICAL DATA: This is the patient's subsequent encounter. Patient reports that signs and symptoms h ave been present for 3 days and indicates a pain score of 0/10. MEDICAL/SURGICAL HISTORY: Hypertension. Diabetes mellitus type II. Emphysema. AFIB. None. COMPARISON: C, CHEST 1V SINGLE AP, 10/09/2017. . FINDINGS: Tracheostomy tube is present in satisfactory position. There is a background of the posterior process probably chronic in nature not significantly changed. Left lung base opacity is present partially te chnical, however consolidation may be present but overall not significantly changed. CONCLUSION: No appreciable change. Electronically signed by: Gerardo Luna MD 10/11/2017 7:25 AM EDT
[2017-10-11] MEDS: Chlorhexidine 0.12% Oral Kit 15 ML UDC SWISH-SPIT SCH ×2 (08:00→20:00)
[2017-10-11] MEDS: Metoprolol Tartrate 50 MG Tablet PO SCH ×2 (09:38→23:34)
[2017-10-11] MEDS: Beneprotein Powder Packet G-TUBE SCH ×2 (09:38→12:45)
--- NOTE | 2017-10-11 12:14 | P.PN ---
Subjective Interval history: episodes of agitation we need aggressive pulmonary toilette- d/w RT- patient definitely more awake and alert tolerating tube feedings last evening- episodes of distress- ABG- C02 improved Physical Exam Vital signs: Vital Signs 10/10/17 16:00 10/10/17 17:32 10/10/17 20:00 Temperature 98.7 F 97.4 F L Pulse Rate 89 107 H Respiratory Rate 20 22 Blood Pressure 110/64 127/77 Pulse Oximetry 98 96 99 10/10/17 20:30 10/11/17 00:00 10/11/17 04:00 Temperature 98.2 F 97.4 F L Pulse Rate 112 H 83 99 H Respiratory Rate 22 17 17 Blood Pressure 121/72 123/98 H Pulse Oximetry 100 97 96 10/11/17 05:35 10/11/17 06:00 10/11/17 08:00 Temperature 97.1 F L Pulse Rate 120 H Respiratory Rate 26 H Blood Pressure 137/71 Pulse Oximetry 95 97 90 L 10/11/17 08:22 10/11/17 11:39 Temperature Pulse Rate 115 H 96 H Respiratory Rate 16 24 Blood Pressure Pulse Oximetry 96 Intake & Output 10/10/17 10/11/17 10/11/17 18:59 06:59 18:59 Output Total 500 / 500 600 / 600 Balance -500 / -500 -600 / -600 Output: Urine 600 / 600 Urine Amount (Catheter) 500 / 500 Indwelling Urethral Catheter 500 / 500 Other: Date of Last Bowel Movement 10/08/17 # Bowel Movements 1 # Incontinent Bowel Movements 1 Narrative: Awake, eyes open. ff commands, awake and alert, anicteric pupils equal . tracheostomy in place- 35% lungs-clears up with suctioning regular rhythm no Murmur. abdomen soft, PEG in place extremities no edema motor able to move the left hand/wrist fingers more than right - right hand - can just move tips of the fingers wiggled toes - Urinary Catheter Management Indwelling Urethral Catheter Cath placed during this visit: yes Urethral indwelling: Yes Reason for continuing: Acute urinary retention Insertion date: 09/27/17 Insertion time: 17:00 Results - Labs CBC & Chem 7: 10/06/17 04:20 10/06/17 04:20 Laboratory Results - last 24 hr 10/10/17 10/11/17 20:52 05:08 Puncture Site Left radial Patient Temperature 98.6 O2 Saturation 90 ABG pH 7.45 H ABG pCO2 49 H ABG pO2 69 ABG HCO3 33 H ABG O2 Content 14.3 ABG Base Excess 9.1 H ABG Methemoglobin 1.4 Dave Test Present Hemoglobin 11.2 L Carboxyhemoglobin 2.3 O2 Delivery Device Cool aerosol Liter Flow 10.00 Inspired O2 40 Critical Value No POC Glucose 86 - Imaging Impressions Chest X-Ray 10/11/17 06:58 CONCLUSION: No appreciable change. - Procedures 08/23- intubation 09/03- bronchoscopy, lung biopsy, thoaracentesis 09/08- tracheostomy 09/11- PEG placement Assessment and Plan - Plan This is a 77-year-old [place] male admitted 08/21/2017, with history of hypertension, gout and diabetes mellitus presenting initially with intermittent pain in his groin, upper thorax and around his back. CT angiogram showed bilateral emphysema and pulmonary nodules with compressive atelectasis of the right lower lobe. Biopsy was done which showed chronic inflammation reactive fibroblastic tissue. Patient was also found to have severe spinal stenosis, status post laminectomy. Patient's hospital stay was complicated by septic shock secondary to healthcare associated pneumonia and C. difficile colitis. Severe cervical spinal stenosis, status post C2 hemilaminectomy, C3 through 5 lamina plasty with quadriplegia and acute spinal injury. Toxic metabolic encephalopathy. - MRI C-spine 09/15: Focal severe spinal canal stenosis at C4-5. Moderate diffuse broad-based bulging at C3-4 with some mild increased signal in the spinal cord at this level. Moderate spinal canal stenosis at C6-C7 Bilateral facet arthritis at multiple levels. Head CT 08/23: 2 questionable tiny focal hemorrhages. MRI of brain 08/26 chronic small vessel ischemic and atrophic changes. EEG 09/03 revealed severe encephalopathy. No epileptiform activity - Neurosurgery Dr. Victor consulted, Poor chance of neurological recovery for him , recent discussion with Dr. Smith and son, no further surgical intervention per son. - Neurology Dr. Carvalho. Per his recommendations was placed on high dose solumedrol 250 mg every 6 hours, d/w Dr. Carvalho 10/06 , taper steroids to off over 2-3 weeks. Was switch to oral 10/07 and taper accordingly. - Continue Tylenol, oxycodone, physical therapy. Uncontrolled hypertension- - BP improved Atherosclerotic coronary artery disease, Atrial fibrillation- now in SR on telemetry -Continue metoprolol and digoxin, previously on amiodarone was stopped because of bradycardia. BP is better, in fact soft,now metoprolol to 25 mg BID Acute, now chronic hypoxic hypercapnic respiratory failure secondary to COPD exacerbation, Trach site infection, Bilateral pleural effusion/status post chest tube right- sided transudative in nature. Chest tube removed 09/04 Multiple bilateral pulmonary masses vs infiltrate, RML mass vs consolidation -CT pulmonary angiogram revealed multiple masses. Lung mass biopsied on August 28 showed CHRONIC INFLAMMATORY AND REACTIVE FIBROBLASTIC TISSUE CONTAINING ENTRAPPED BENIGN EPITHELIUM, plan is reconsult IR 09/08 for repeat biopsy however patient is not stable. - Followed by Dr. Hardy/pulmonology. Reconsulted 09/08, recommended repeat CT in 4 weeks and to hold off IR guided biopsy due to respiratory and neuro status. s/p percutaneous tracheostomy 09/08 (Michellea/Michael), Status post thoracentesis left side 09/09 with 1 L fluid removed. No evidence of infection. Chest tubes removed 09/04/2017. -Continue T-piece, continue budesonide, DuoNeb's, Levsin for secretions - Pulmonary ff decannulation, CXR still shows bilateral infiltrates, keep on T- bar at 30% - trach in place- - fi02 up to 60% - pulmonary toilette- d/s staff nurse and RT- - trial of prn Ativan- to help with agitation Hypoalbuminemia Acute protein calorie malnutrition -severe -s/p PEG 09/11. Tolerating tube feeds with Glucerna 1.5 at 55 cc an hour, free water flushes 300 cc every 6 hours Urinary retention, possible urinary stricture Acute kidney injury Maintain Larson catheter. Monitor urine output, Accurate I's and O's, significant difficulty due to obstruction which may be urethral stricture which prevented serial i/o Diabetes mellitus Sliding scale insulin with NovoLog high regimen to maintain euglycemia. Currently on insulin Letemir 10 units subq twice daily - good readings- check FS bid Severe sepsis - resolved Trach site infection - resolved Healthcare associated pneumonia - resolved C. difficile colitis - resolved. - Status post bronchoscopy 09/03 cultures negative, Appreciate ID input. PO vancomycin completed 09/30. Still with lose stools, d/c stool softeners, leukocytosis resolved. FEN: Hypernatremia - resolved on PEG TF - speech therapy ff Prophylaxis -GI -lansoprazole. DVT -SCD/heparin subcutaneous Disposition: This gentleman remains weak and debilitated, functionally quadriparetic. Long-term prognosis for a meaningful recovery is quite poor. The best we can probably hope for is a skilled facility, continue t-piece trials and now working towards placement and decanulation. Patient awaiting bed at the long-term vent unit. Palliative care ff along with us Alternative Code Candidate for [facility] once consultants have signed off.
[2017-10-11] MEDS: Insulin Detemir Inj 1,000 UNIT/10 ML Vial SQ SCH ×2 (14:15→22:00)
--- NOTE | 2017-10-11 23:04 | P.DIET ---
Nutritional Evaluation Type of nutrition evaluation: follow-up Nutrition consult regarding: Tube Feeding Nutrition screening: Pressure Injury Subjective Subjective Comments: Pt speaks only Mandarin. Objective - Diagnosis Pulmonary Mass, Pulmonary Infiltrates - Objective % IBW: 132 (IBW = 118#) Body Weight Used for Calculations: Upper end of IBW (59 kg) Energy Needs - Lower Range (kCal/kg): 30 Energy Needs - Upper Range (kCal/kg): 35 Lower Limit kCal/kg (kCals): 1,770 Upper Limit kCal/kg (kCals): 2,065 Lower Limit Protein Factor (Grams per Kg): 1.2 Upper Limit Protein Factor (Grams per Kg): 1.5 Lower Protein Needs (Protein): 71 Upper Protein Needs (Protein): 89 Dietitian Reviewed in Medical Record: Curent medications, Intake & Output, Labs , Medical history, Tube feeding, Wound/DTI Diet Order: TFing only Objective Comments: Hx includes HTN, DM, Gout, 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 Continues to tolerate TF of Glucerna 1.5 @ 55 mls/hr and this adequately meets estimated needs. Pts. wt. remains stable, +UOP and +BM. Newest Nurse's Wound/Pressure Injury Assessment indicates an open are on the Right and Left buttock. Pt is functionally quadriparetic. Continue current POC and TFing at current goal rate. Continue to monitor TFing tolerance, labs and skin. Recommendations: 1. Continue current POC and TFing at current goal rate. 2. Continue to monitor TFing tolerance, labs and skin. Dietitian to Monitor: Lab values, Intake & Output, Tube feeding tolerance, Weight change, Wound/skin status, Medical course
[2017-10-12] MEDS: LORazepam 1 MG Tablet G-TUBE PRN (01:41)
[2017-10-12] MEDS: Insulin NovoLOG Aspart Correctional Sugar Inj SQ SCH ×2 (02:00→14:00)
[2017-10-12] MEDS: Oral Hygiene Kit OROPHARYNG SCH ×5 (03:12→18:38)
[2017-10-12] MEDS: Beneprotein Powder Packet G-TUBE SCH ×4 (03:12→18:39)
[2017-10-12] MEDS: Chlorhexidine Gluconate 2% 1 Pack (2 Cloths) TOPICAL SCH (03:16)
[2017-10-12] MEDS: Artificial Tears Opth Drops 15 ML Bottle EACH EYE SCH ×2 (06:00→18:39)
[2017-10-12] MEDS: Metoprolol Tartrate 50 MG Tablet PO SCH ×2 (09:00→21:00)
[2017-10-12] MEDS: Insulin Detemir Inj 1,000 UNIT/10 ML Vial SQ SCH (09:00)
[2017-10-12] MEDS: Chlorhexidine 0.12% Oral Kit 15 ML UDC SWISH-SPIT SCH (11:34)
--- NOTE | 2017-10-12 15:29 | P.PN ---
Subjective Interval history: with abdominal distention peg opened up- -burping a lot/gas came out soft loose stools minimal secretions clear awake and alert, ff commands seen with son at [facility] Physical Exam Vital signs: Vital Signs 10/11/17 15:36 10/11/17 16:00 10/11/17 18:00 Temperature 95.8 F L Pulse Rate 90 130 H Respiratory Rate 16 20 Blood Pressure 82/52 L Pulse Oximetry 92 L 94 L 10/11/17 19:48 10/11/17 20:00 10/12/17 00:00 Temperature 98.9 F 98.2 F Pulse Rate 65 106 H 81 Respiratory Rate 18 20 18 Blood Pressure 112/57 L 94/52 L Pulse Oximetry 98 98 100 10/12/17 04:00 10/12/17 06:00 10/12/17 08:00 Temperature 97.2 F L 97 F L Pulse Rate 82 110 H Respiratory Rate 16 26 H Blood Pressure 98/56 L 90/54 L Pulse Oximetry 99 99 99 10/12/17 09:40 10/12/17 12:00 Temperature 96.5 F L Pulse Rate 92 H 115 H Respiratory Rate 15 22 Blood Pressure 88/40 L Pulse Oximetry 99 94 L Intake & Output 10/11/17 10/12/17 10/12/17 18:59 06:59 18:59 Intake Total 1650 / 1650 1300 / 1300 Output Total 1200 / 1200 1000 / 1000 Balance 450 / 450 300 / 300 Intake: Tube Feeding 850 / 850 700 / 700 Water Bolus Amount 800 / 800 600 / 600 Output: Urine 500 / 500 Urine Amount (Catheter) 1200 / 1200 500 / 500 Indwelling Urethral Catheter 1200 / 1200 500 / 500 Other: Date of Last Bowel Movement 10/10/17 10/12/17 # Bowel Movements 1 # Incontinent Bowel Movements 1 Narrative: Awake, eyes open. ff commands, awake and alert, anicteric pupils equal . tracheostomy in place- lungs-clears up with suctioning regular rhythm no Murmur. abdomen soft, PEG in place, good bowel sounds extremities no edema motor able to move the left hand/wrist fingers more than right - right hand - can just move tips of the fingers wiggled toes - Urinary Catheter Management Indwelling Urethral Catheter Cath placed during this visit: yes Reason for continuing: Acute urinary retention Insertion date: 08/20/17 Insertion time: 17:00 Results - Labs CBC & Chem 7: 10/06/17 04:20 10/06/17 04:20 Laboratory Results - last 24 hr 10/11/17 10/12/17 10/12/17 21:18 03:55 11:38 POC Glucose 242 H 153 H 176 H 10/12/17 13:59 POC Glucose 175 H - Procedures 08/23- intubation 09/03- bronchoscopy, lung biopsy, thoaracentesis 09/08- tracheostomy 09/11- PEG placement Assessment and Plan - Plan This is a 77-year-old Occ[place] male admitted 08/21/2017, with history of hypertension, gout and diabetes mellitus presenting initially with intermittent pain in his groin, upper thorax and around his back. CT angiogram showed bilateral emphysema and pulmonary nodules with compressive atelectasis of the right lower lobe. Biopsy was done which showed chronic inflammation reactive fibroblastic tissue. Patient was also found to have severe spinal stenosis, status post laminectomy. Patient's hospital stay was complicated by septic shock secondary to healthcare associated pneumonia and C. difficile colitis. Severe cervical spinal stenosis, status post C2 hemilaminectomy, C3 through 5 lamina plasty with quadriplegia and acute spinal injury. Toxic metabolic encephalopathy. - MRI C-spine 09/15: Focal severe spinal canal stenosis at C4-5. Moderate diffuse broad-based bulging at C3-4 with some mild increased signal in the spinal cord at this level. Moderate spinal canal stenosis at C6-C7 Bilateral facet arthritis at multiple levels. Head CT 08/23: 2 questionable tiny focal hemorrhages. MRI of brain 08/26 chronic small vessel ischemic and atrophic changes. EEG 09/03 revealed severe encephalopathy. No epileptiform activity - Neurosurgery Dr. Victor consulted, Poor chance of neurological recovery for him , recent discussion with Dr. Smith and son, no further surgical intervention per son. - Neurology Dr. Carvalho. Per his recommendations was placed on high dose solumedrol 250 mg every 6 hours, d/w Dr. Carvalho 10/06 , taper steroids to off over 2-3 weeks. Was switch to oral 10/07 and taper accordingly. - Continue Tylenol, oxycodone, physical therapy. Uncontrolled hypertension- - BP improved Atherosclerotic coronary artery disease, Atrial fibrillation- now in SR on telemetry -Continue metoprolol and digoxin, previously on amiodarone was stopped because of bradycardia. BP is better, in fact soft,now metoprolol to 25 mg BID monitora nd adjust Abdominal distention- likely ileus- patient burping a lot - hold TF -abdominal distentio improved with holdding TF - restart in am IVF overnight 50 cc.hr Acute, now chronic hypoxic hypercapnic respiratory failure secondary to COPD exacerbation, Trach site infection, Bilateral pleural effusion/status post chest tube right- sided transudative in nature. Chest tube removed 09/04 Multiple bilateral pulmonary masses vs infiltrate, RML mass vs consolidation -CT pulmonary angiogram revealed multiple masses. Lung mass biopsied on August 28 showed CHRONIC INFLAMMATORY AND REACTIVE FIBROBLASTIC TISSUE CONTAINING ENTRAPPED BENIGN EPITHELIUM, plan is reconsult IR 09/08 for repeat biopsy however patient is not stable. - Followed by Dr. Hardy/pulmonology. Reconsulted 09/08, recommended repeat CT in 4 weeks and to hold off IR guided biopsy due to respiratory and neuro status. s/p percutaneous tracheostomy 09/08 (Michellea/[place]), Status post thoracentesis left side 09/09 with 1 L fluid removed. No evidence of infection. Chest tubes removed 09/04/2017. -Continue T-piece, continue budesonide, DuoNeb's, Levsin for secretions - Pulmonary ff decannulation, CXR still shows bilateral infiltrates, keep on T- bar at 30% - trach in place- 28% - pulmonary toilette- d/s staff nurse and RT- - trail of prn Ativan- to help with agitation Hypoalbuminemia Acute protein calorie malnutrition -severe -s/p PEG 09/11. Tolerating tube feeds with Glucerna 1.5 at 55 cc an hour, free water flushes 300 cc every 6 hours Urinary retention, possible urinary stricture Acute kidney injury Maintain Larson catheter. Monitor urine output, Accurate I's and O's, significant difficulty due to obstruction which may be urethral stricture which prevented serial i/o Diabetes mellitus Sliding scale insulin with NovoLog high regimen to maintain euglycemia. Currently on insulin Letemir 10 units subq twice daily - good readings- check FS bid Severe sepsis - resolved Trach site infection - resolved Healthcare associated pneumonia - resolved C. difficile colitis - resolved. - Status post bronchoscopy 09/03 cultures negative, Appreciate ID input. PO vancomycin completed 09/30. Still with lose stools, d/c stool softeners, leukocytosis resolved. FEN: Hypernatremia - resolved on PEG TF - speech therapy consult- swallowing evaluation Prophylaxis -GI -lansoprazole. DVT -SCD/heparin subcutaneous Disposition: This gentleman remains weak and debilitated, functionally quadriparetic. Long-term prognosis for a meaningful recovery is quite poor. The best we can probably hope for is a skilled facility, continue t-piece trials and now working towards placement and decanulation. Patient awaiting bed at the long-term vent unit. Palliative care ff along with us Alternative Code[facility] no [facility]ator if becomes short of breath no chest compressions- DNR
--- NOTE | 2017-10-12 16:42 | XR ---
EXAM DATE: 10/12/2017 4:36 PM EDT AGE/SEX: 77 years / Male INDICATIONS: Distention. CLINICAL DATA: This is the patient's subsequent encounter. Patient reports that signs and symptoms h ave been present for 1 day and indicates a pain score of Nonresponsive. MEDICAL/SURGICAL HISTORY: . Hypertension. Diabetes mellitus type II. Emphysema. AFIB. . Cervic al surgery. COMPARISON: [facility] [place], ABDOMEN SINGLE VIEW, 08/28/2017. . FINDINGS: Nasogastric tube at GE junction. Minimal consolidative changes right base with trace pleural effusio n. Nonspecific bowel gas pattern with scattered air-filled loops of large and small bowel without dilata tion. There is no free air. CONCLUSION: Nonspecific bowel gas pattern as above without significant distention Minimal consolidative changes right base with trace pleural effusion. Electronically signed by: Mayank Vasquez MD 10/12/2017 4:41 PM EDT
[2017-10-13] MEDS: LORazepam 1 MG Tablet G-TUBE PRN ×2 (01:37→11:13)
[2017-10-13] MEDS: Sod Chloride 0.9% Inj 1,000 ML IV.CONT SCH ×2 (06:00→15:35)
[2017-10-13] MEDS: Insulin Detemir Inj 1,000 UNIT/10 ML Vial SQ SCH (10:25)
[2017-10-13] MEDS: Metoprolol Tartrate 50 MG Tablet PO SCH (11:15)
--- NOTE | 2017-10-13 12:57 | P.PN ---
Subjective Interval history: He is lethargic. On a T Bar and breathing laboured. Has abdominal distention Physical Exam Vital signs: Vital Signs 10/12/17 16:00 10/12/17 21:43 10/13/17 07:58 Temperature 97.0 F L 96.5 F L Pulse Rate 100 H 95 H 99 H Respiratory Rate 20 20 Blood Pressure 80/54 L 109/63 Pulse Oximetry 95 97 99 10/13/17 09:24 Temperature Pulse Rate 100 H Respiratory Rate 20 Blood Pressure Pulse Oximetry 99 Intake & Output 10/12/17 10/13/17 10/13/17 18:59 06:59 18:59 Intake Total 700 / 700 Output Total 500 / 500 2099 / 2100 Balance 200 / 200 -2100 / -2099 Weight 64.2 kg Intake: Tube Feeding 400 / 400 Water Bolus Amount 300 / 300 Output: Urine 1050 / 1050 Urine Amount (Catheter) 500 / 500 1050 / 1050 Indwelling Urethral Catheter 500 / 500 1050 / 1050 Other: Date of Last Bowel Movement 10/12/17 10/12/17 # Incontinent Bowel Movements 4 Narrative: Very lethargic on a T bar. anicteric pupils equal . tracheostomy in place- lungs-With wheeze upper chest and clears up with suctioning regular rhythm no Murmur. abdomen soft, PEG in place, Distended with low bowel sounds extremities no edema motor able to move the left hand/wrist fingers more than right - right hand - can just move tips of the fingers - Urinary Catheter Management Indwelling Urethral Catheter Cath placed during this visit: yes Urethral indwelling: Yes Reason for continuing: Acute urinary retention Insertion date: 08/20/17 Insertion time: 17:00 Results - Labs CBC & Chem 7: 10/06/17 04:20 10/06/17 04:20 Laboratory Results - last 24 hr 10/12/17 10/13/17 13:59 11:24 POC Glucose 175 H 123 H - Imaging Impressions Abdomen X-Ray 10/12/17 00:00 CONCLUSION: Nonspecific bowel gas pattern as above without significant distention Minimal consolidative changes right base with trace pleural effusion. - Procedures 08/23- intubation 09/03- bronchoscopy, lung biopsy, thoaracentesis 09/08- tracheostomy 09/11- PEG placement Assessment and Plan - Assessment (1) Cervical myelopathy Code(s): G95.9 - Disease of spinal cord, unspecified Status: Acute (2) Respiratory failure Code(s): J96.90 - Respiratory failure, unspecified, unspecified whether with hypoxia or hypercapnia Status: Acute (3) SVT (supraventricular tachycardia) Code(s): I47.1 - Supraventricular tachycardia Status: Acute (4) Lung mass Code(s): R91.8 - Other nonspecific abnormal finding of lung field Status: Acute (5) Diabetes Code(s): E11.9 - Type 2 diabetes mellitus without complications Status: Acute (6) Gout Code(s): M10.9 - Gout, unspecified Status: Acute (7) Spinal stenosis Code(s): M48.00 - Spinal stenosis, site unspecified Status: Acute (8) Dyspnea Code(s): R06.00 - Dyspnea, unspecified Status: Acute - Plan 1. T Bar at 28 % FIO2 and wean to keep sat >92 . 2. Trach lavage and suction PRN 3. Cont Duoneb nebs qid. 4. CXR in am 5. Tube feeds at 60CC 6. Family wants comfort care and DNR
--- NOTE | 2017-10-13 17:47 | P.PNWCN ---
Wound Care Nurse Consult Description: Consult for Pressure Ulcer to R and L buttocks per Merry Molina/Dr Bliss Communicated with: WALI Sibley Recommendation: Continue to apply Calazime BID and PRN to right buttock partial thickness skin loss of moisture and friction related denuded skin. Additional information: Patient seen on for right buttock wound. Left buttock noted with scar tissue only, no open areas visualized. Wound/Pressure Injury - Wound Right Buttocks Wound Bed Appearance: [place], Red Dressing Status: Open to Air Cleansing Solution: Saline Topical: Calazime skin protectant paste
--- NOTE | 2017-10-13 18:34 | P.PN ---
Subjective Interval history: awake and alert abdomen-soft seen with at bedside appears in no distress Physical Exam Vital signs: Vital Signs 10/12/17 21:43 10/13/17 07:58 10/13/17 09:24 Temperature 96.5 F L Pulse Rate 95 H 99 H 100 H Respiratory Rate 20 20 20 Blood Pressure 109/63 Pulse Oximetry 97 99 99 10/13/17 12:00 10/13/17 16:00 Temperature 97.3 F L 97.6 F Pulse Rate 112 H 90 Respiratory Rate 22 20 Blood Pressure 107/60 95/74 L Pulse Oximetry 90 L 96 Intake & Output 10/12/17 10/13/17 10/13/17 18:59 06:59 18:59 Intake Total 700 / 700 Output Total 500 / 500 2100 / 2100 Balance 200 / 200 -2100 / -2100 Weight 64.2 kg Intake: Tube Feeding 400 / 400 Water Bolus Amount 300 / 300 Output: Urine 1050 / 1050 Urine Amount (Catheter) 500 / 500 1050 / 1050 Indwelling Urethral Catheter 500 / 500 1050 / 1050 Other: Date of Last Bowel Movement 10/12/17 10/12/17 # Incontinent Bowel Movements 4 Narrative: Awake, eyes open. ff commands, awake and alert, anicteric pupils equal . tracheostomy in place- lungs-clears up with suctioning regular rhythm no Murmur. abdomen soft, PEG in place, good bowel sounds extremities no edema motor able to move the left hand/wrist fingers more than right - right hand - can just move tips of the fingers wiggled toes - Urinary Catheter Management Indwelling Urethral Catheter Cath placed during this visit: yes Urethral indwelling: Yes Reason for continuing: Acute urinary retention Insertion date: 08/20/17 Insertion time: 17:00 Results - Labs CBC & Chem 7: 10/06/17 04:20 10/06/17 04:20 Laboratory Results - last 24 hr 10/13/17 11:24 POC Glucose 123 H - Procedures 08/23- intubation 09/03- bronchoscopy, lung biopsy, thoaracentesis 09/08- tracheostomy 09/11- PEG placement Assessment and Plan - Plan This is a 77-year-old [place] male admitted 08/21/2017, with history of hypertension, gout and diabetes mellitus presenting initially with intermittent pain in his groin, upper thorax and around his back. CT angiogram showed bilateral emphysema and pulmonary nodules with compressive atelectasis of the right lower lobe. Biopsy was done which showed chronic inflammation reactive fibroblastic tissue. Patient was also found to have severe spinal stenosis, status post laminectomy. Patient's hospital stay was complicated by septic shock secondary to healthcare associated pneumonia and C. difficile colitis. Severe cervical spinal stenosis, status post C2 hemilaminectomy, C3 through 5 lamina plasty with quadriplegia and acute spinal injury. Toxic metabolic encephalopathy. - MRI C-spine 09/15: Focal severe spinal canal stenosis at C4-5. Moderate diffuse broad-based bulging at C3-4 with some mild increased signal in the spinal cord at this level. Moderate spinal canal stenosis at C6-C7 Bilateral facet arthritis at multiple levels. Head CT 08/23: 2 questionable tiny focal hemorrhages. MRI of brain 08/26 chronic small vessel ischemic and atrophic changes. EEG 09/03 revealed severe encephalopathy. No epileptiform activity - Neurosurgery Dr. Victor consulted, Poor chance of neurological recovery for him , recent discussion with Dr. Smith and son, no further surgical intervention per son. - Neurology Dr. Carvalho. Per his recommendations was placed on high dose solumedrol 250 mg every 6 hours, d/w Dr. Carvalho 10/06 , taper steroids to off over 2-3 weeks. Was switch to oral 10/07 and taper accordingly. - Continue Tylenol, oxycodone, physical therapy. Uncontrolled hypertension- - BP improved Atherosclerotic coronary artery disease, Atrial fibrillation- now in SR on telemetry -Continue metoprolol and digoxin, previously on amiodarone was stopped because of bradycardia. BP is better, in fact soft,now metoprolol to 25 mg BID monitora nd adjust Abdominal distention 10/12 - likely ileus- patient burping a lot- now Resolved - restart TF- glucerna today 10/13 - restart sliding scale insulin- restart long accting if TF at goal rate Acute, now chronic hypoxic hypercapnic respiratory failure secondary to COPD exacerbation, Trach site infection, Bilateral pleural effusion/status post chest tube right- sided transudative in nature. Chest tube removed 09/04 Multiple bilateral pulmonary masses vs infiltrate, RML mass vs consolidation -CT pulmonary angiogram revealed multiple masses. Lung mass biopsied on August 28 showed CHRONIC INFLAMMATORY AND REACTIVE FIBROBLASTIC TISSUE CONTAINING ENTRAPPED BENIGN EPITHELIUM, plan is reconsult IR 09/08 for repeat biopsy however patient is not stable. - Followed by Dr. Hardy/pulmonology. Reconsulted 09/08, recommended repeat CT in 4 weeks and to hold off IR guided biopsy due to respiratory and neuro status. s/p percutaneous tracheostomy 09/08 (Michellea/[place]), Status post thoracentesis left side 09/09 with 1 L fluid removed. No evidence of infection. Chest tubes removed 09/04/2017. -Continue T-piece, continue budesonide, DuoNeb's, Levsin for secretions - Pulmonary ff decannulation, CXR still shows bilateral infiltrates, keep on T- bar at 30% - trach in place- 28% - pulmonary toilette- d/s staff nurse and RT- - trail of prn Ativan- to help with agitation Hypoalbuminemia Acute protein calorie malnutrition -severe -s/p PEG 09/11. Tolerating tube feeds with Glucerna 1.5 at 55 cc an hour, free water flushes 300 cc every 6 hours Urinary retention, possible urinary stricture Acute kidney injury Maintain Larson catheter. Monitor urine output, Accurate I's and O's, significant difficulty due to obstruction which may be urethral stricture which prevented serial i/o Diabetes mellitus Sliding scale insulin with NovoLog high regimen to maintain euglycemia. Currently on insulin Letemir 10 units subq twice daily- on hold- restart if TF at goal rate - good readings- check FS bid Severe sepsis - resolved Trach site infection - resolved Healthcare associated pneumonia - resolved C. difficile colitis - resolved. - Status post bronchoscopy 09/03 cultures negative, Appreciate ID input. PO vancomycin completed 09/30. Still with lose stools, d/c stool softeners, leukocytosis resolved. FEN: Hypernatremia - resolved on PEG TF Prophylaxis -GI -lansoprazole. DVT -SCD/heparin subcutaneous Disposition: This gentleman remains weak and debilitated, functionally quadriparetic. Long-term prognosis for a meaningful recovery is quite poor. The best we can probably hope for is a skilled facility, continue t-piece trials and now working towards placement and decanulation. Patient awaiting bed at the long-term vent unit. Palliative care ff along with us- DM with them- ? transition to hospice- they will try to call his son tomorrow to determine goals of care Alternative Code- discuss with son and [facility] at [facility]- no ventilator if becomes short of breath no chest compressions- DNR 10/12
[2017-10-14] MEDS: Metoprolol Tartrate 50 MG Tablet PO SCH ×3 (00:34→23:03)
--- NOTE | 2017-10-14 07:01 | XR ---
EXAM DATE: 10/14/2017 6:53 AM EDT AGE/SEX: 77 years / Male INDICATIONS: Short of breath, evaluate pneumonia CLINICAL DATA: This is the patient's subsequent encounter. Patient reports that signs and symptoms h ave been present for 1 day and indicates a pain score of Nonresponsive. MEDICAL/SURGICAL HISTORY: Hypertension. Diabetes mellitus type II. Emphysema. A-fib . trach eostomy COMPARISON: [facility] [place], CHEST 1V SINGLE AP, 10/11/2017. [facility] [place], CHEST 1V SINGLE AP, 10/09/2017. . FINDINGS: A single AP view of the chest was performed. Tracheostomy tube remains in satisfactory position. Pers istent prominent interstitial markings, likely a chronic process, as previously described. Residual m ild streaky opacity in the left midlung. Left basilar opacification, likely a combination of airspace disease and pleural fluid. No appreciable pneumothorax. Stable cardiomediastinal silhouette. Degener ative changes of the spine. CONCLUSION: Left basilar opacification, likely a combination of airspace disease and pleural fluid. Electronically signed by: Kyra Brannon MD 10/14/2017 7:00 AM EDT
--- NOTE | 2017-10-14 08:09 | P.PNIM ---
Subjective Interval history: No overnight events, follow some commands, patient agreed with hospice. Physical Exam Vital signs: Vital Signs 10/13/17 09:24 10/13/17 12:00 10/13/17 16:00 Temperature 97.3 F L 97.6 F Pulse Rate 100 H 112 H 90 Respiratory Rate 20 22 20 Blood Pressure 107/60 95/74 L Pulse Oximetry 99 90 L 96 10/13/17 20:00 10/13/17 20:47 10/13/17 20:48 Temperature 99.6 F Pulse Rate 98 H 103 H Respiratory Rate 15 20 Blood Pressure 126/70 Pulse Oximetry 95 97 10/14/17 00:00 10/14/17 04:00 10/14/17 05:00 Temperature 98.1 F 97.6 F Pulse Rate 92 H 81 Respiratory Rate 14 16 Blood Pressure 122/78 146/75 H Pulse Oximetry 97 95 98 10/14/17 07:00 Temperature Pulse Rate Respiratory Rate Blood Pressure Pulse Oximetry 97 Intake & Output 10/13/17 10/14/17 10/14/17 18:59 06:59 18:59 Intake Total 100 / 100 200 / 200 Output Total 400 / 400 1000 / 1000 Balance -300 / -300 -800 / -800 Weight 64.9 kg Intake: Oral 0 / 0 Tube Feeding 140 / 140 Tube Irrigant 60 / 60 Other 100 / 100 Output: Urine 1000 / 1000 Urine Amount (Catheter) 400 / 400 Indwelling Urethral Catheter 400 / 400 Other: Other Intake Source Saline Solution Date of Last Bowel Movement 10/13/17 10/13/17 Narrative: Awake, eyes open, follows simple commands. anicteric pupils equal tracheostomy in place Lungs clear. regular rhythm no Murmur. abdomen soft, PEG in place, good bowel sounds extremities no edema Awake, follows simple commands, moves left hand, fair handgrip. - Urinary Catheter Management Indwelling Urethral Catheter Cath placed during this visit: yes Urethral indwelling: Yes Reason for continuing: Acute urinary retention Insertion date: 08/20/17 Insertion time: 17:00 Results - Labs CBC & Chem 7: 10/06/17 04:20 10/06/17 04:20 Laboratory Results - last 24 hr 10/13/17 11:24 POC Glucose 123 H - Imaging Impressions Chest X-Ray 10/14/17 00:00 CONCLUSION: Left basilar opacification, likely a combination of airspace disease and pleural fluid. - Procedures 08/23- intubation 09/03- bronchoscopy, lung biopsy, thoaracentesis 09/08- tracheostomy 09/11- PEG placement Assessment and Plan - Plan This is a 77-year-old [place] male admitted 08/21/2017, with history of hypertension, gout and diabetes mellitus presenting initially with intermittent pain in his groin, upper thorax and around his back. CT angiogram showed bilateral emphysema and pulmonary nodules with compressive atelectasis of the right lower lobe. Biopsy was done which showed chronic inflammation reactive fibroblastic tissue. Patient was also found to have severe spinal stenosis, status post laminectomy. Patient's hospital stay was complicated by septic shock secondary to healthcare associated pneumonia and C. difficile colitis. Severe cervical spinal stenosis, status post C2 hemilaminectomy, C3 through 5 lamina plasty with quadriplegia and acute spinal injury. Toxic metabolic encephalopathy. - MRI C-spine 09/15: Focal severe spinal canal stenosis at C4-5. Moderate diffuse broad-based bulging at C3-4 with some mild increased signal in the spinal cord at this level. Moderate spinal canal stenosis at C6-C7 Bilateral facet arthritis at multiple levels. Head CT 08/23: 2 questionable tiny focal hemorrhages. MRI of brain 08/26 chronic small vessel ischemic and atrophic changes. EEG 09/03 revealed severe encephalopathy. No epileptiform activity - Neurosurgery Dr. Victor consulted, Poor chance of neurological recovery for him , recent discussion with Dr. Smith and son, no further surgical intervention per son. - Neurology Dr. Carvalho. Per his recommendations was placed on high dose solumedrol 250 mg every 6 hours, d/w Dr. Carvalho 10/06 , status post steroid taper . Uncontrolled hypertension- - BP improved Atherosclerotic coronary artery disease, Atrial fibrillation- now in SR on telemetry -Continue metoprolol and digoxin, previously on amiodarone was stopped because of bradycardia. Abdominal distention 10/12 - likely ileus- patient burping a lot- now Resolved - restart TF- glucerna today 10/13 - restart sliding scale insulin- restart long accting if TF at goal rate Acute, now chronic hypoxic hypercapnic respiratory failure secondary to COPD exacerbation, Trach site infection, Bilateral pleural effusion/status post chest tube right- sided transudative in nature. Chest tube removed 09/04 Multiple bilateral pulmonary masses vs infiltrate, RML mass vs consolidation -CT pulmonary angiogram revealed multiple masses. Lung mass biopsied on August 28 showed CHRONIC INFLAMMATORY AND REACTIVE FIBROBLASTIC TISSUE CONTAINING ENTRAPPED BENIGN EPITHELIUM, plan is reconsult IR 09/08 for repeat biopsy however patient is not stable. - Followed by Dr. Hardy/pulmonology. Reconsulted 09/08, recommended repeat CT in 4 weeks and to hold off IR guided biopsy due to respiratory and neuro status. s/p percutaneous tracheostomy 09/08 (Biga/Michael), Status post thoracentesis left side 09/09 with 1 L fluid removed. No evidence of infection. Chest tubes removed 09/04/2017. -Continue T-piece, continue budesonide, DuoNeb's, Levsin for secretions - Pulmonary ff decannulation, CXR still shows bilateral infiltrates, keep on T- bar at 30% - trach in place- 28% - pulmonary toilette- d/s staff nurse and RT- - trail of prn Ativan- to help with agitation Hypoalbuminemia Acute protein calorie malnutrition -severe -s/p PEG 09/11. Tolerating tube feeds with Glucerna 1.5 at 55 cc an hour, free water flushes 300 cc every 6 hours Urinary retention, possible urinary stricture Acute kidney injury Maintain Larson catheter. Monitor urine output, Accurate I's and O's, significant difficulty due to obstruction which may be urethral stricture which prevented serial i/o Diabetes mellitus Sliding scale insulin with NovoLog high regimen to maintain euglycemia. Levemir on hold, blood glucose stable. Severe sepsis - resolved Trach site infection - resolved Healthcare associated pneumonia - resolved C. difficile colitis - resolved. - Status post bronchoscopy 09/03 cultures negative, Appreciate ID input. PO vancomycin completed 09/30. Still with lose stools, d/c stool softeners, leukocytosis resolved. FEN: Hypernatremia - resolved on PEG TF Prophylaxis -GI -lansoprazole. DVT -SCD/heparin subcutaneous Disposition: This gentleman remains weak and debilitated, functionally quadriparetic. Long-term prognosis for a meaningful recovery is quite poor. The best we can probably hope for is a skilled facility, continue t-piece trials and now working towards placement and decanulation. Patient awaiting bed at the long-term vent unit. Palliative care ff along with us, for hospice today. Alternative Code- discuss with son and [facility] at [facility]- no ventilator if becomes short of breath no chest compressions- DNR 10/12
[2017-10-14] MEDS: LORazepam 1 MG Tablet G-TUBE PRN ×2 (10:01→23:03)
--- NOTE | 2017-10-14 13:30 | P.PNPAL ---
Reason for Visit Reason for visit: a. To assist with evaluation and management of symptoms including: dyspnea, pain, b. To assist medical decision maker(s) with: better understanding of current medical conditions; weighing benefits/burdens of medical treatment options; making medical treatment decisions. Subjective Subjective/Interval History: Follow up on Patient s/p C2-C3 to 5 laminoplasty for severe cervical spinal cord stenosis. On 10/11, pt had some episodes of agitation, and distress. 10/12- 10/13 pt is more lethargic, and have some labored breathing. Hospitalist dicussed with son and at bedside and pt became a full DNR,. Hospice has been consulted. Pt open eyes lethargic. Goes back to sleep. Family/Friend Interactions: [employer] service was used during family meeting. I met with family, with hospice. I met with pt's son, and pt's spouse. Hospice services was explained to them. Pt's clinical condition was explained to them. They are not amenable to switch completely to comfort measures only now. They are not amenable to stopping antibiotics or other treatment. Spend a long time reviewing code status. This has not change and they are amenable to a Full DNR. If he declines, no ventilator. Okay with supplemental O2. They ask about the passy dereck valve, and I stated, pt right now is not strong enough for it. Advance Directives Living Will: Never completed Health Care Surrogate: Never completed Durable Power of Teacher'S Aide: Never completed Objective Vital Signs: Vital Signs 10/13/17 16:00 10/13/17 20:00 10/13/17 20:47 Temperature 97.6 F 99.6 F Pulse Rate 90 98 H Respiratory Rate 20 15 Blood Pressure 95/74 L 126/70 Pulse Oximetry 96 95 97 10/13/17 20:48 10/14/17 00:00 10/14/17 04:00 Temperature 98.1 F 97.6 F Pulse Rate 103 H 92 H 81 Respiratory Rate 20 14 16 Blood Pressure 122/78 146/75 H Pulse Oximetry 97 95 10/14/17 05:00 10/14/17 07:00 10/14/17 08:00 Temperature 97.6 F Pulse Rate 95 H Respiratory Rate 22 Blood Pressure 140/67 Pulse Oximetry 98 97 97 10/14/17 09:02 10/14/17 09:03 10/14/17 12:00 Temperature 97.5 F L Pulse Rate 101 H 84 Respiratory Rate 22 12 Blood Pressure 126/75 Pulse Oximetry 99 94 L Intake & Output 10/13/17 10/14/17 10/14/17 18:59 06:59 18:59 Intake Total 100 / 100 200 / 200 Output Total 400 / 400 1000 / 1000 Balance -300 / -300 -800 / -800 Weight 64.9 kg Intake: Oral 0 / 0 Tube Feeding 140 / 140 Tube Irrigant 60 / 60 Other 100 / 100 Output: Urine 1000 / 1000 Urine Amount (Catheter) 400 / 400 Indwelling Urethral Catheter 400 / 400 Other: Other Intake Source Saline Solution Date of Last Bowel Movement 10/13/17 10/13/17 10/13/17 Physical Exam: CONSTITUTIONAL/GENERAL: This is an adequately nourished patient , on mech vent . sleeping, but easily awakens TUBES/LINES/DRAINS: trach- t piece, ceja, PIV x2 BUE, SKIN: No jaundice, rashes, or lesions. No wounds seen anteriorly. skin warm/ dry EYES: no eye opening. No injection or drainage. Fundi not examined. ENT: Nose without bleeding or purulent drainage. Limited oropharynx exam 2/2 + T piece CARDIOVASCULAR: RRR without murmurs. No JVD. Peripheral pulses symmetric. Trace periph edema to hands. RESPIRATORY/CHEST: unlabored respirations Coarse breath sounds. Diminished sounds bases. GASTROINTESTINAL: Abdomen soft, non-tender, nondistended. No hepato-splenomegaly , or palpable masses. Bowel sounds present. TF infusing via OGT MUSCULOSKELETAL: Trace +BUE edema. +soft restraints lower ext. No mottling or clubbing. NEUROLOGICAL: can wiggle toes. Can grab finger on command on left upper ext. Some movement of right ext. PSYCH: no apparent distress, Diagnostic Tests Laboratory: Laboratory Results - last 72 hr 10/11/17 10/11/17 10/12/17 14:06 21:18 03:55 POC Glucose 207 H 242 H 153 H 10/12/17 10/12/17 10/13/17 11:38 13:59 11:24 POC Glucose 176 H 175 H 123 H Result Diagrams: 10/06/17 04:20 10/06/17 04:20 Imaging: ITS Impressions Cervical Spine X-Ray 09/19/17 00:00 CONCLUSION: Surgical hardware noted posteriorly at the C3-C5 levels. Cervical Spine MRI 09/25/17 00:00 CONCLUSION: 1. Status post laminectomy at the C3-C5 levels. Surgical hardware seen at the posterior elements at these levels. 2. Moderate stenosis at the C4-C5 level secondary to disc bulge and central disc protrusion. There is abnormal signal again seen within the cord. The cord appears small this region. This likely secondary to myelomalacia. 3. Mild to moderate narrowing of the thecal sac at the C5-C6 and C6-C7 level. 4. Neural foraminal narrowing throughout the cervical spine as described above. Abdomen X-Ray 10/12/17 00:00 CONCLUSION: Nonspecific bowel gas pattern as above without significant distention Minimal consolidative changes right base with trace pleural effusion. Chest X-Ray 10/14/17 00:00 CONCLUSION: Left basilar opacification, likely a combination of airspace disease and pleural fluid. 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 Right middle lobe 2.7 x 2.2 x 7's. Spiculated. Left lingula is 3.4 x 3.20 cm. COPD (2) SVT (supraventricular tachycardia) (3) Lung mass Comment: revealed 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 Right middle lobe 2.7 x 2.2 x 7's. Spiculated. Left lingula is 3.4 x 3.20 cm. 1st biopsy did not show malignancy. 2nd biopsy on hold to risk of decompensation. Pulmonlogy advise against 2nd biopsy given risk. Recommends repeat CT in 4 weeks. If mass decrease in size, more possiblility its infections rather than malignancy. (4) Diabetes (5) Gout (6) Spinal stenosis - Symptom Scale (1) Dyspnea 0-10 Scale: Unable to quantify (2) Pain 0-10 Scale: Unable to quantify Pertinent Non-Medical Issues: Psychosocial: Retired. He was living at home with his Tommie Gutierrez and his son "Cristina Palmer. Recently returned from 3 month trip to [place]. Speaks Mandarin only. He also has another son who had just arrive from [place]. He is awaiting for his grandson to arrive also from [place]. Spiritual: unk at this time Legal: Per [place] statutes legal decision maker proxy is pt's . It appears she may have been deferring to son but has been present for major decisions. Family appears to be working together. Ethical issues impacting care: no issues identified Important Contacts: Spencer Reilly [phone] Son "Cristina Palmer [phone] Prognosis: 77 yo possible malignant lung nodules vs infection, underlying diastolic heart failure, severe spinal stenosis (s/p surgery) and DM. Prognosis is challenging at this point Pt has made some progress neurologically, wiggling his toes, and movement of upper ext. Prognosis for recovery may be impeded risk for infections bedsores, deconditioning and various complications remains. Oveall it is poor. Code Status: No Code DNR Plan: CODE STATUS - [employer] has change for Alt code to full DNR. I have reconfirm that with family. Capacity- he does not appears to be able to weigh the risk and benefits of decision on my visit. Alertness has improved. He does not appear to have insight or can weigh the risk and benefits. Remains lethargic and tired. LEGAL DECISION MAKER - per [place] statutes is proxy , who defers decisions to son, [place], family all working together. Family meetings- hospitalist met with family and hospice was consulted. I met with family, with hospice. I met with pt's son, and pt's spouse. Hospice services was explained to them. Pt's clinical condition was explained to them. They are not amenable to switch completely to comfort measures now. They are not amenable to stopping treatment and just focus on comfort.. Spend a long time reviewing code status. This has not change and they are amenable to a Full DNR. If he declines, no ventilator. Okay with supplemental O2. They ask about the passy dereck valve, and I stated, pt right now is not strong enough for it. SYMPTOMS * shortness of breath - 2/2 pleural effusions, underlying diastolic heart failure. Questionable malignancy, hx remote TB. O. Status post tracheostomy. appears stable currently * pain - ?cause? presented with right side and thoracic pain. imaging showing lung nodules. BX benign, ?repeat. appears comfortable, no signs of pain on exam. family endorse pt decribe lower ab pain. Oxycodone is available. Palliative care will continue to follow during hospital course as condition evolves to assist patient/decision maker with understanding of medical conditions, benefits/burdens of treatment options, clarification of goals of treatment, and will assist with symptoms of palliative concern. Attestation Attestation: To help prompt me to consider important information that might be impacting today's encounter and assessment, information from prior notes written by myself or my colleagues may have been "brought forward" into today's note. My signature on this note, however, is an attestation that I personally performed the exam, history, and/or decision-making noted today, and, unless otherwise indicated, the interactions with patient, family, and staff as well as the review of records all occurred today. I also attest that the listed assessment and stated plan reflect my best clinical judgment today based on the combination of historical information, prior notes, and today's exam/ interactions. When time spent is documented, it refers only to time spent today by the signer, or if indicated, combined time spent today by collaborating physician/nurse practitioner.
[2017-10-15 09:31] LABS: ABG Base Excess 9.1 mmol/L (-2-2); ABG PCO2 57 mmHg (38-42); ABG PO2 169 mmHG (61-120)
[2017-10-15] MEDS: Sod Chloride 0.9% Inj 1,000 ML IV.CONT SCH ×2 (10:10→22:02)
--- NOTE | 2017-10-15 10:10 | P.PNNS ---
Subjective Interval history: 09/16: 77-year-old male admitted on August 21, 2017 with initial complaint of chest pain and right upper quadrant abdominal pain. His initial evaluation revealed multiple pulmonary lesions with pleural effusion. However cytology from thoracentesis and lung biopsy were negative for malignancy. He initially required a tracheostomy placement. He has been on ventilatory support, with sedation recently weaned over the past few days. There was noted within the past day or 2 that he has not been moving his extremities, and an MRI of the cervical spine was subsequently obtained on 09/15/2017. This has revealed severe cervical stenosis with significant abnormal signal intensity within the cord. Review of his records indicates the patient to be moving all extremities during the first week or so of his hospitalization, although it is difficult to determine the grade of his motor function, with the patient very ill and apparently generally weak upon his initial presentation. Physical therapy notes reviewed, however therapy has not been able to consistently work with the patient due to his pulmonary problems and subsequent intubation and sedation. 06/18: Pt awake. Not verbalizing. Not following commands consistently tries to stick out tongue to command. 09/18: The patient is awake in bed. He is trached and on CPAP/PSV settings. He does look at this practitioner and tracks. He did not follow any commands. There was a trace of left foot movement to noxious stimulation. He did have facial grimacing also to noxious stimulation. Nursing reports that he did stick out his tongue after she demonstrated it. She also says that the patient squeezed with the left hand once but did not repeat it. 09/19: The patient went for a C3-5 laminoplasty and post-operatively was transferred back to the ISC unit. 09/20: Patient intubated 09/22: Intubated. Off sedation for examination 09/24: When seen this morning the patient is awake. He has no sedation infusing. He is trached and on CPAP. He is tachypneic and Nursing reports that he is having a harder time handling it today. She reported that he was moving the left upper spontaneously earlier. During evaluation he did not response to any stimuli but subsequently did move the left hand fingers slightly. Dr Srivastava with Palliative Care is to meet with the patient's son this morning. 09/25: Spoke with Palliative Care this morning who said family has made the patient essentially a no code. He believes they are leaning toward withdrawal but are waiting for a family member to travel here. The patient is awake and alert when seen. He is seen moving the left hand spontaneously after stimulation but has no response to noxious stimulation with the other extremities. 09/27: This morning the patient is awake and having an IV line placed by the Vascular Access team. He was seen spontaneously moving the left upper extremity prior to being seen. He nods his head slightly when told "hello" in [place]. He is still trached and on CPAP/PSV settings. He did not have any response to noxious stimulation of the right upper or either lower extremity. A review of Palliative Care's note yesterday indicates the family is still waiting for a family member to arrive from [place] before considering comfort measures. 09/28: Today the patient is awake and alert. He is still trached but on a T- piece. Nursing does report that he has been on the T-piece overnight. She reports that he is tachypneic but maintaining his oxygen saturation. When greeted in [place] he reached his left hand up off the bed for this practitioner 's hand. He did have slight movement of the right hand to command. There was no response to the lower extremities to any stimulation. 09/29: The patient is awake when seen. He is trached and still on the T-piece but he is tachypneic. He is seen moving the left upper extremity spontaneously. He had no response to noxious stimulation with the other extremities. 09/30: When seen the patient is asleep but he did open his eyes to voice. He remains trached and on a T-piece. He does spontaneously move the left upper extremity and moves it to noxious stimulation of the lower extremities. He had no extremity response with noxious stimulation to that extremity. 10/01: trached on t-piece. reports spontaneous movements left upper, no movements seen right upper and b/l LE. 10/02: no changes neuro checks overnight 10/03: Pt opens eyes to voice. Possibly closing eyes and opening them to command. He has some spontaneous flexion movement with left elbow but not following commands for muscle testing. Trach collar in place on humidified O2. 10/04: Pt more awake and alert this morning. Not following commands. He nods no to questions. Denies pain. Spontaneously moves left arm at elbow but not moving fingers or following commands. 10/05: Pt awake. He follows by mimicking. No movement in LEs or RUE. Some spontaneous movement in Left upper extremity at elbow not hand or proximally. [place] collar remains intact. 10/06: reports some minimal movement right upper, otherwise no significant changes to neuro checks 10/07/17: Pt awake. Opens mouth by mimicking. Not following other commands. 10/08: no neuro changes, palliative care following. 10/09: This morning the patient is asleep but opens his eyes when greeted in [place]. He does lift his left upper extremity to demonstration but does not move the other extremities to command/demonstration or noxious stimulation. The [place] cervical collar is in place. 10/15: The patient is awake and alert in bed. He responds to this practitioner when greeted in [place] and partially lifts his left hand off the bed. He did appear to try and give a thumbs up with the left hand when asked. He was noted to wiggle the toes of both feet slightly and the right hand minimally. He is still in the [place] cervical collar. Physical Exam Vital signs: Vital Signs 10/14/17 12:00 10/14/17 16:00 10/14/17 17:24 Temperature 97.5 F L 97.5 F L Pulse Rate 84 93 H Respiratory Rate 12 12 Blood Pressure 126/75 130/80 Pulse Oximetry 94 L 99 97 10/14/17 19:53 10/14/17 19:54 10/14/17 20:00 Temperature 97.9 F Pulse Rate 105 H 107 H Respiratory Rate 24 18 Blood Pressure 132/82 Pulse Oximetry 94 L 99 10/14/17 23:13 10/15/17 00:11 10/15/17 04:00 Temperature 97.8 F 98.3 F Pulse Rate 101 H 109 H Respiratory Rate 22 18 Blood Pressure 143/87 H 146/90 H Pulse Oximetry 99 97 98 10/15/17 09:18 Temperature Pulse Rate 115 H Respiratory Rate 28 H Blood Pressure Pulse Oximetry 97 Intake & Output 10/14/17 10/15/17 10/15/17 18:59 06:59 18:59 Intake Total 280 / 280 991 / 991 Output Total 850 / 850 450 / 450 Balance -570 / -570 541 / 541 Weight 61.8 kg Intake: Oral 0 / 0 Tube Feeding 140 / 140 931 / 931 Tube Irrigant 0 / 0 60 / 60 Water Bolus Amount 40 / 40 Anesthesia Amount 0 / 0 Other 100 / 100 Output: Urine 850 / 850 Urine Amount (Catheter) 450 / 450 Indwelling Urethral Catheter 450 / 450 Other: Other Intake Source Saline Solution Date of Last Bowel Movement 10/14/17 # Bowel Movements 1 Narrative: GENERAL: Awake & alert. Trached and on T-piece. No apparent distress. HEENT: Normocephalic, atraumatic. Has thick secretions to back of oropharynx which were suctioned by this practitioner. NECK: The [place] cervical collar is in place. Trached. Surgical incision well approximated. No JVD. Trachea midline. MUSCULOSKELETAL: No evident clubbing or deformity. Dependent edema to all extremities. Slight spontaneous movement of left hand off bed in greeting. NEUROLOGICAL: Awake & alert. Trached, nonverbal. Slight spontaneous movement of left hand off bed, slight wiggling of toes of both feet & trace to right hand fingers. It appears he did try to lift the left thumb in order to give a thumbs up when asked. No response to local noxious stimulation of the RUE or BLE other than facial grimacing. - Urinary Catheter Management Indwelling Urethral Catheter Cath placed during this visit: yes Urethral indwelling: Yes Reason for continuing: Acute urinary retention Insertion date: 08/20/17 Insertion time: 17:00 Assessment and Plan - Plan Impression: 1. 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 2. Sepsis 3. Respiratory failure, tracheostomy in place. Now on CPAP "Advised the patient's son that a more extensive decompression could be pursued with full laminectomy and fusion, however this may be associated with its own increase chance of failed fusion, wound healing issues and more extensive anesthesia time. Realistically given the severe degree of atrophy and myelomalacia within the cord, it is unlikely that the patient will have any better outcome with a more aggressive decompression and stabilization procedure. The patient's son appears to understand this and indicates that he does not wish to try to pursue any further surgical intervention. I advised him that chance of any recovery of sensorimotor function is very slim, and if it does occur it could take several months. I advised him that it is highly unlikely that with any treatment the patient would be ambulatory again." - Dr Victor at 1924 Patient awake & alert. Spontaneously moves left hand slightly, wiggles toes of both feet and trace movement of right hand fingers. No RUE or BLE response w/ noxious stimulation other than facial grimace. Past 24 hrs: Afebrile. Tachycardia & intermittent tachypnea. No labs for today. Cervical Spine MRI 09/25/17 00:00 CONCLUSION: 1. Status post laminectomy at the C3-C5 levels. Surgical hardware seen at the posterior elements at these levels. 2. Moderate stenosis at the C4-C5 level secondary to disc bulge and central disc protrusion. There is abnormal signal again seen within the cord. The cord appears small this region. This likely secondary to myelomalacia. 3. Mild to moderate narrowing of the thecal sac at the C5-C6 and C6-C7 level. 4. Neural foraminal narrowing throughout the cervical spine as described above. "Follow-up MRI 09/25/2017 images reveal good central decompression of the spinal cord in the mid to upper cervical region. There may be a small amount of epidural hematoma along the left side without significant canal compromise. There is significant thinning of the spinal cord at the previous C4-5 stenotic region with persistent increased signal intensity not significantly changed compared to preoperative study." - Dr Victor at 1916 s/p: C3-5 laminoplasty Plan: Primary & critical care management per Scheduler Maintenance. Palliative Care following. [place] cervical collar at all times. No further surgical interventions per son. long term care administrator care facility when medically stable. Follow up with Neurosurgery outpatient every 6 weeks from surgery with follow up cervical x-rays.
[2017-10-15] MEDS: Metoprolol Tartrate 50 MG Tablet PO SCH ×2 (10:11→21:33)
--- NOTE | 2017-10-15 11:43 | P.PNPAL ---
Reason for Visit Reason for visit: a. To assist with evaluation and management of symptoms including: dyspnea, pain, b. To assist medical decision maker(s) with: better understanding of current medical conditions; weighing benefits/burdens of medical treatment options; making medical treatment decisions. Subjective Subjective/Interval History: Pt still having these times of dyspnea, tachypnea and desaturations. Remains confuse at times. Can follow some commands. Overall lethargic. Family/Friend Interactions: Annabelle was used for family discussion. I spoke with pt's at bedside. Reviewed pt's condition, how unstable he is and again reemphsize his overall poor prognosis for functional recover.y Discussion of hospice and comfort measures again was discussed and offered. decline this. Code status review, and she state if respiratory status worsen, and icu support ventilator, to initiate it. She reemphazise now chest compression, shock, acls. Basically their feeling is if he is awake, alert as he has been for the past 2 weeks(although fluctuating in mentation at times), they would want to continue aggressive care short of cpr/compression/shock. This family has met with hospice yesterday. With me today, and again comfort care was offered. I don't suspect goals would change for the time being. Advance Directives Living Will: Never completed Health Care Surrogate: Never completed Durable Power of Quality Rn: Never completed Objective Vital Signs: Vital Signs 10/14/17 12:00 10/14/17 16:00 10/14/17 17:24 Temperature 97.5 F L 97.5 F L Pulse Rate 84 93 H Respiratory Rate 12 12 Blood Pressure 126/75 130/80 Pulse Oximetry 94 L 99 97 10/14/17 19:53 10/14/17 19:54 10/14/17 20:00 Temperature 97.9 F Pulse Rate 105 H 107 H Respiratory Rate 24 18 Blood Pressure 132/82 Pulse Oximetry 94 L 99 10/14/17 23:13 10/15/17 00:11 10/15/17 04:00 Temperature 97.8 F 98.3 F Pulse Rate 101 H 109 H Respiratory Rate 22 18 Blood Pressure 143/87 H 146/90 H Pulse Oximetry 99 97 98 10/15/17 09:18 Temperature Pulse Rate 115 H Respiratory Rate 28 H Blood Pressure Pulse Oximetry 97 Intake & Output 10/14/17 10/15/1718 18:59 06:59 18:59 Intake Total 1280 / 1280 991 / 991 Output Total 850 / 850 450 / 450 Balance 430 / 430 541 / 541 Weight 61.8 kg Intake: IV 1000 / 1000 NS Inj 1,000 ML @ 42 mls/hr IV. 1000 / 1000 CONT .[id number] [facility] Rx#:[id number] Oral 0 / 0 Tube Feeding 140 / 140 931 / 931 Tube Irrigant 0 / 0 60 / 60 Water Bolus Amount 40 / 40 Anesthesia Amount 0 / 0 Other 100 / 100 Output: Urine 850 / 850 Urine Amount (Catheter) 450 / 450 Indwelling Urethral Catheter 450 / 450 Other: Other Intake Source Saline Solution Date of Last Bowel Movement 10/14/17 # Bowel Movements 1 Physical Exam: CONSTITUTIONAL/GENERAL: This is an adequately nourished patient , on mech vent . sleeping, but easily awakens TUBES/LINES/DRAINS: trach- t piece, ceja, PIV x2 BUE, SKIN: No jaundice, rashes, or lesions. No wounds seen anteriorly. skin warm/ dry EYES: no eye opening. No injection or drainage. Fundi not examined. ENT: Nose without bleeding or purulent drainage. Limited oropharynx exam 2/2 + T piece CARDIOVASCULAR: RRR without murmurs. No JVD. Peripheral pulses symmetric. Trace periph edema to hands. RESPIRATORY/CHEST: unlabored respirations Coarse breath sounds. Diminished sounds bases. GASTROINTESTINAL: Abdomen soft, non-tender, nondistended. No hepato-splenomegaly , or palpable masses. Bowel sounds present. TF infusing via OGT MUSCULOSKELETAL: Trace +BUE edema. +soft restraints lower ext. No mottling or clubbing. NEUROLOGICAL: can wiggle toes. Can grab finger on command on left upper ext. Some movement of right ext. PSYCH: no apparent distress, Diagnostic Tests Laboratory: Laboratory Results - last 72 hr 10/12/17 10/12/17 10/13/17 11:38 13:59 11:24 Puncture Site Patient Temperature O2 Saturation ABG pH ABG pCO2 ABG pO2 ABG HCO3 ABG O2 Content ABG Base Excess ABG Methemoglobin Dave Test Hemoglobin Carboxyhemoglobin O2 Delivery Device Liter Flow Inspired O2 Critical Value POC Glucose 176 H 175 H 123 H 10/15/17 09:21 Puncture Site Right radial Patient Temperature 98.6 O2 Saturation 96 ABG pH 7.40 ABG pCO2 57 H* ABG pO2 169 H ABG HCO3 34 H ABG O2 Content 15.6 ABG Base Excess 9.1 H ABG Methemoglobin 1.3 Dave Test Y Hemoglobin 11.3 L Carboxyhemoglobin 2.2 O2 Delivery Device T piece Liter Flow 10.00 Inspired O2 50 Critical Value Yes POC Glucose Result Diagrams: 10/06/17 04:20 10/06/17 04:20 Imaging: ITS Impressions Cervical Spine X-Ray 09/19/17 00:00 CONCLUSION: Surgical hardware noted posteriorly at the C3-C5 levels. Cervical Spine MRI 09/25/17 00:00 CONCLUSION: 1. Status post laminectomy at the C3-C5 levels. Surgical hardware seen at the posterior elements at these levels. 2. Moderate stenosis at the C4-C5 level secondary to disc bulge and central disc protrusion. There is abnormal signal again seen within the cord. The cord appears small this region. This likely secondary to myelomalacia. 3. Mild to moderate narrowing of the thecal sac at the C5-C6 and C6-C7 level. 4. Neural foraminal narrowing throughout the cervical spine as described above. Abdomen X-Ray 10/12/17 00:00 CONCLUSION: Nonspecific bowel gas pattern as above without significant distention Minimal consolidative changes right base with trace pleural effusion. Chest X-Ray 10/14/17 00:00 CONCLUSION: Left basilar opacification, likely a combination of airspace disease and pleural fluid. 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 Right middle lobe 2.7 x 2.2 x 7's. Spiculated. Left lingula is 3.4 x 3.20 cm. COPD (2) SVT (supraventricular tachycardia) (3) Lung mass Comment: revealed 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 Right middle lobe 2.7 x 2.2 x 7's. Spiculated. Left lingula is 3.4 x 3.20 cm. 1st biopsy did not show malignancy. 2nd biopsy on hold to risk of decompensation. Pulmonlogy advise against 2nd biopsy given risk. Recommends repeat CT in 4 weeks. If mass decrease in size, more possiblility its infections rather than malignancy. (4) Diabetes (5) Gout (6) Spinal stenosis Pertinent Non-Medical Issues: Psychosocial: Retired. He was living at home with his Tommie Gutierrez and his son "Cristina Palmer. Recently returned from 3 month trip to [place]. Speaks Mandarin only. He also has another son who had just arrive from [place]. He is awaiting for his grandson to arrive also from [place]. Spiritual: unk at this time Legal: Per [place] statutes legal decision maker proxy is pt's . It appears she may have been deferring to son but has been present for major decisions. Family appears to be working together. Ethical issues impacting care: no issues identified Important Contacts: Spencer Reilly [phone] Son "Cristina Palmer [phone] Prognosis: 77 yo possible malignant lung nodules vs infection, underlying diastolic heart failure, severe spinal stenosis (s/p surgery) and DM. Prognosis is challenging at this point Pt has made some progress neurologically, wiggling his toes, and movement of upper ext. Prognosis for recovery may be impeded risk for infections bedsores, deconditioning and various complications remains. Oveall it is poor. Code Status: Alternative Code Plan: CODE STATUS - Alternate code. Yes to intubation and mechanical ventilation. no to cpr/ shock/ acls drugs. Capacity- he does not appears to be able to weigh the risk and benefits of decision on my visit. Alertness has improved. He does not appear to have insight or can weigh the risk and benefits. Remains lethargic and tired. LEGAL DECISION MAKER - per [place] statutes is proxy , who defers decisions to son, [place], family all working together. Family meetings- multiple times this week. I spoke with pt's at bedside. Reviewed pt's condition, how unstable he is and again reemphsize his overall poor prognosis for functional recover.y Discussion of hospice and comfort measures again was discussed and offered. decline this. Code status review, and she state if respiratory status worsen, and icu support ventilator, to initiate it. She reemphazise now chest compression, shock, acls. Basically their feeling is if he is awake, alert as he has been for the past 2- 3 weeks, they would want to continue aggressive care short of cpr/compression/shock. I have had multiple family meetings with family this week. Yesterday 10/14 been family meeting with hospice, which I also attend. Again comfort care was offered today. I don't suspect goals would change for the time being. SYMPTOMS * shortness of breath -. Questionable malignancy, hx remote TB. O. Status post tracheostomy. risk of decompensation. Family amenable to transferring back to icu, if respiratory status clinically worsen. * pain - ?cause? presented with right side and thoracic pain. imaging showing lung nodules. BX benign, ?repeat. appears comfortable, no signs of pain on exam. family endorse pt decribe lower ab pain. Oxycodone is available. Palliative care will continue to follow during hospital course as condition evolves to assist patient/decision maker with understanding of medical conditions, benefits/burdens of treatment options, clarification of goals of treatment, and will assist with symptoms of palliative concern. Attestation Attestation: To help prompt me to consider important information that might be impacting today's encounter and assessment, information from prior notes written by myself or my colleagues may have been "brought forward" into today's note. My signature on this note, however, is an attestation that I personally performed the exam, history, and/or decision-making noted today, and, unless otherwise indicated, the interactions with patient, family, and staff as well as the review of records all occurred today. I also attest that the listed assessment and stated plan reflect my best clinical judgment today based on the combination of historical information, prior notes, and today's exam/ interactions. When time spent is documented, it refers only to time spent today by the signer, or if indicated, combined time spent today by collaborating physician/nurse practitioner.
--- NOTE | 2017-10-15 13:57 | P.PNIM ---
Subjective Interval history: Patient still having episodes of dyspnea, ABG done, pH is normal, mild CO2 retention. Confused. Physical Exam Vital signs: Vital Signs 10/14/17 16:00 10/14/17 17:24 10/14/17 19:53 Temperature 97.5 F L Pulse Rate 93 H Respiratory Rate 12 Blood Pressure 130/80 Pulse Oximetry 99 97 94 L 10/14/17 19:54 10/14/17 20:00 10/14/17 23:13 Temperature 97.9 F 97.8 F Pulse Rate 105 H 107 H 101 H Respiratory Rate 24 18 22 Blood Pressure 132/82 143/87 H Pulse Oximetry 99 99 10/15/17 00:11 10/15/17 04:00 10/15/17 08:00 Temperature 98.3 F 97.7 F Pulse Rate 109 H 104 H Respiratory Rate 18 36 H Blood Pressure 146/90 H 151/81 H Pulse Oximetry 97 98 90 L 10/15/17 09:18 Temperature Pulse Rate 115 H Respiratory Rate 28 H Blood Pressure Pulse Oximetry 97 Intake & Output 10/14/17 10/15/17 10/15/17 18:59 06:59 18:59 Intake Total 1280 / 1280 991 / 991 Output Total 850 / 850 450 / 450 Balance 430 / 430 541 / 541 Weight 61.8 kg Intake: IV 1000 / 1000 NS Inj 1,000 ML @ 42 mls/hr IV. 1000 / 1000 CONT .[id number] [facility] Rx#:[id number] Oral 0 / 0 Tube Feeding 140 / 140 931 / 931 Tube Irrigant 0 / 0 60 / 60 Water Bolus Amount 40 / 40 Anesthesia Amount 0 / 0 Other 100 / 100 Output: Urine 850 / 850 Urine Amount (Catheter) 450 / 450 Indwelling Urethral Catheter 450 / 450 Other: Other Intake Source Saline Solution Date of Last Bowel Movement 10/14/17 10/15/17 # Bowel Movements 1 Narrative: Awake, eyes open, follows simple commands. anicteric pupils equal tracheostomy in place Lungs clear. regular rhythm no Murmur. abdomen soft, PEG in place, good bowel sounds extremities no edema Awake, follows simple commands - Urinary Catheter Management Indwelling Urethral Catheter Cath placed during this visit: yes Urethral indwelling: Yes Reason for continuing: Acute urinary retention Insertion date: 08/20/17 Insertion time: 17:00 Results - Labs CBC & Chem 7: 10/06/17 04:20 10/06/17 04:20 Laboratory Results - last 24 hr 10/15/17 09:21 Puncture Site Right radial Patient Temperature 98.6 O2 Saturation 96 ABG pH 7.40 ABG pCO2 57 H* ABG pO2 169 H ABG HCO3 34 H ABG O2 Content 15.6 ABG Base Excess 9.1 H ABG Methemoglobin 1.3 Dave Test Y Hemoglobin 11.3 L Carboxyhemoglobin 2.2 O2 Delivery Device T piece Liter Flow 10.00 Inspired O2 50 Critical Value Yes - Procedures 08/23- intubation 09/03- bronchoscopy, lung biopsy, thoaracentesis 09/08- tracheostomy 09/11- PEG placement Assessment and Plan - Plan This is a 77-year-old [place] male admitted 08/21/2017, with history of hypertension, gout and diabetes mellitus presenting initially with intermittent pain in his groin, upper thorax and around his back. CT angiogram showed bilateral emphysema and pulmonary nodules with compressive atelectasis of the right lower lobe. Biopsy was done which showed chronic inflammation reactive fibroblastic tissue. Patient was also found to have severe spinal stenosis, status post laminectomy. Patient's hospital stay was complicated by septic shock secondary to healthcare associated pneumonia and C. difficile colitis. Severe cervical spinal stenosis, status post C2 hemilaminectomy, C3 through 5 lamina plasty with quadriplegia and acute spinal injury. Toxic metabolic encephalopathy. - MRI C-spine 09/15: Focal severe spinal canal stenosis at C4-5. Moderate diffuse broad-based bulging at C3-4 with some mild increased signal in the spinal cord at this level. Moderate spinal canal stenosis at C6-C7 Bilateral facet arthritis at multiple levels. Head CT 08/23: 2 questionable tiny focal hemorrhages. MRI of brain 08/26 chronic small vessel ischemic and atrophic changes. EEG 09/03 revealed severe encephalopathy. No epileptiform activity - Neurosurgery Dr. Victor consulted, Poor chance of neurological recovery for him , recent discussion with Dr. Smith and son, no further surgical intervention per son. - Neurology Dr. Carvalho. Per his recommendations was placed on high dose solumedrol 250 mg every 6 hours, d/w Dr. Carvalho 10/06 , status post steroid taper . Uncontrolled hypertension- - BP improved Atherosclerotic coronary artery disease, Atrial fibrillation- now in SR on telemetry -Continue metoprolol and digoxin, previously on amiodarone was stopped because of bradycardia. Abdominal distention 10/12 - likely ileus- patient burping a lot- now Resolved - restart TF- glucerna today 10/13 - restart sliding scale insulin- restart long accting if TF at goal rate Acute, now chronic hypoxic hypercapnic respiratory failure secondary to COPD exacerbation, Trach site infection, Bilateral pleural effusion/status post chest tube right- sided transudative in nature. Chest tube removed 09/04 Multiple bilateral pulmonary masses vs infiltrate, RML mass vs consolidation -CT pulmonary angiogram revealed multiple masses. Lung mass biopsied on August 28 showed CHRONIC INFLAMMATORY AND REACTIVE FIBROBLASTIC TISSUE CONTAINING ENTRAPPED BENIGN EPITHELIUM, plan is reconsult IR 09/08 for repeat biopsy however patient is not stable. - Followed by Dr. Hardy/pulmonology. Reconsulted 09/08, recommended repeat CT in 4 weeks and to hold off IR guided biopsy due to respiratory and neuro status. s/p percutaneous tracheostomy 09/08 (Michellea/[place]), Status post thoracentesis left side 09/09 with 1 L fluid removed. No evidence of infection. Chest tubes removed 09/04/2017. -Continue T-piece, continue budesonide, DuoNeb's, Levsin for secretions - Pulmonary ff decannulation, CXR still shows bilateral infiltrates, keep on T- bar at 30% - trach in place- 28% -Still having episodes of dyspnea, ABG done, showed mild CO2 retention with pH is within normal limits. Oxygen saturation is acceptable. Hypoalbuminemia Acute protein calorie malnutrition -severe -s/p PEG 09/11. Tolerating tube feeds with Glucerna 1.5 at 55 cc an hour, free water flushes 300 cc every 6 hours Urinary retention, possible urinary stricture Acute kidney injury Maintain Larson catheter. Monitor urine output, Accurate I's and O's, significant difficulty due to obstruction which may be urethral stricture which prevented serial i/o Diabetes mellitus Sliding scale insulin with NovoLog high regimen to maintain euglycemia. Levemir on hold, blood glucose stable. Severe sepsis - resolved Trach site infection - resolved Healthcare associated pneumonia - resolved C. difficile colitis - resolved. - Status post bronchoscopy 09/03 cultures negative, Appreciate ID input. PO vancomycin completed 09/30. Still with lose stools, d/c stool softeners, leukocytosis resolved. FEN: Hypernatremia - resolved on PEG TF Prophylaxis -GI -lansoprazole. DVT -SCD/heparin subcutaneous Disposition: This gentleman remains weak and debilitated, functionally quadriparetic. Long-term prognosis for a meaningful recovery is quite poor. The best we can probably hope for is a skilled facility, continue t-piece trials and now working towards placement and decanulation. Patient awaiting bed at the long-term vent unit. Palliative care ff along with us, for hospice today. Palliative care discussed with patient's again, alternative code. No chest compressions but okay with mechanical ventilation. They refused hospice.
--- NOTE | 2017-10-15 18:10 | P.PN ---
Subjective Interval history: Remains lethargic and on a T Bar and FIo2 was 50 %. ABG's showed Hypercapnia. PO2 was 169 Physical Exam Vital signs: Vital Signs 10/14/17 19:53 10/14/17 19:54 10/14/17 20:00 Temperature 97.9 F Pulse Rate 105 H 107 H Respiratory Rate 24 18 Blood Pressure 132/82 Pulse Oximetry 94 L 99 10/14/17 23:13 10/15/17 00:11 10/15/17 04:00 Temperature 97.8 F 98.3 F Pulse Rate 101 H 109 H Respiratory Rate 22 18 Blood Pressure 143/87 H 146/90 H Pulse Oximetry 99 97 98 10/15/17 08:00 10/15/17 09:18 Temperature 97.7 F Pulse Rate 104 H 115 H Respiratory Rate 36 H 28 H Blood Pressure 151/81 H Pulse Oximetry 90 L 97 Intake & Output 10/14/17 10/15/17 10/15/17 18:59 06:59 18:59 Intake Total 1280 / 1280 991 / 991 Output Total 850 / 850 450 / 450 Balance 430 / 430 541 / 541 Weight 61.8 kg Intake: IV 1000 / 1000 NS Inj 1,000 ML @ 42 mls/hr IV. 1000 / 1000 CONT .[id number] [facility] Rx#:[id number] Oral 0 / 0 Tube Feeding 140 / 140 931 / 931 Tube Irrigant 0 / 0 60 / 60 Water Bolus Amount 40 / 40 Anesthesia Amount 0 / 0 Other 100 / 100 Output: Urine 850 / 850 Urine Amount (Catheter) 450 / 450 Indwelling Urethral Catheter 450 / 450 Other: Other Intake Source Saline Solution Date of Last Bowel Movement 10/14/17 10/15/17 # Bowel Movements 1 Narrative: Awake, eyes open, follows simple commands. anicteric pupils equal tracheostomy in place. Mild secretions. Lungs with Wheeze bilaterally regular rhythm no Murmur. abdomen soft, PEG in place, good bowel sounds extremities no edema. 1 + reflexes in arms, weak legs. Awake, but lethargic. - Urinary Catheter Management Indwelling Urethral Catheter Cath placed during this visit: yes Urethral indwelling: Yes Reason for continuing: Acute urinary retention Insertion date: 08/20/17 Insertion time: 17:00 Results - Labs CBC & Chem 7: 10/18/17 08:30 10/18/17 08:30 Laboratory Results - last 24 hr 10/15/17 09:21 Puncture Site Right radial Patient Temperature 98.6 O2 Saturation 96 ABG pH 7.40 ABG pCO2 57 H* ABG pO2 169 H ABG HCO3 34 H ABG O2 Content 15.6 ABG Base Excess 9.1 H ABG Methemoglobin 1.3 Dave Test Y Hemoglobin 11.3 L Carboxyhemoglobin 2.2 O2 Delivery Device T piece Liter Flow 10.00 Inspired O2 50 Critical Value Yes - Procedures 08/23- intubation 09/03- bronchoscopy, lung biopsy, thoaracentesis 09/08- tracheostomy 09/11- PEG placement Assessment and Plan - Assessment (1) Cervical myelopathy Code(s): G95.9 - Disease of spinal cord, unspecified Status: Acute (2) Respiratory failure Code(s): J96.90 - Respiratory failure, unspecified, unspecified whether with hypoxia or hypercapnia Status: Acute (3) SVT (supraventricular tachycardia) Code(s): I47.1 - Supraventricular tachycardia Status: Acute (4) Lung mass Code(s): R91.8 - Other nonspecific abnormal finding of lung field Status: Acute (5) Diabetes Code(s): E11.9 - Type 2 diabetes mellitus without complications Status: Acute (6) Gout Code(s): M10.9 - Gout, unspecified Status: Acute (7) Spinal stenosis Code(s): M48.00 - Spinal stenosis, site unspecified Status: Acute (8) Dyspnea Code(s): R06.00 - Dyspnea, unspecified Status: Acute - Plan 1. T Bar at 35 % FIO2 and wean to keep sat >92 . 2. Trach lavage and suction PRN 3. Cont Duoneb nebs qid. 4. CXR in am 5. Tube feeds at 60CC 6. Family wants full code. 7. May need to add CPAP at HS 8. Will add levaquin 500 mg daily for left base Infiltrate 9. Will need F/U CT chest for lung nodule evaluation and Repeat Biopsy when he is stable.
[2017-10-15] MEDS: Levofloxacin 500 mg Premix Inj 500 MG/100 ML PIGGYBACK IV.SIG SCH (20:30)
[2017-10-15] MEDS: LORazepam 1 MG Tablet G-TUBE PRN (21:33)
[2017-10-15] MEDS: Hyoscyamine Inj 0.5 MG/ML Ampul IV.PUSH PRN (21:34)
--- NOTE | 2017-10-16 08:11 | XR ---
EXAM DATE: 10/16/2017 7:52 AM EDT AGE/SEX: 77 years / Male INDICATIONS: Pneumonia CLINICAL DATA: This is the patient's subsequent encounter. Patient reports that signs and symptoms h ave been present for 3 weeks and indicates a pain score of Nonresponsive. MEDICAL/SURGICAL HISTORY: . Hypertension. Diabetes mellitus type II. Emphysema. A-fib . . tra cheostomy COMPARISON: C, CHEST 1V SINGLE AP, 10/14/2017. . FINDINGS: Stable tracheostomy. Stable diffuse interstitial prominence with continued left basilar pleural-paren chymal opacities. Cardiomediastinal contours are stable. Remainder of exam is unchanged. CONCLUSION: 1. No significant interval change. 2. Stable small left pleural effusion and associated left lower lobe airspace disease. Electronically signed by: Leo Malave MD 10/16/2017 8:10 AM EDT
--- NOTE | 2017-10-16 09:36 | P.PNNS ---
Subjective Interval history: 09/16: 77-year-old male admitted on August 21, 2017 with initial complaint of chest pain and right upper quadrant abdominal pain. His initial evaluation revealed multiple pulmonary lesions with pleural effusion. However cytology from thoracentesis and lung biopsy were negative for malignancy. He initially required a tracheostomy placement. He has been on ventilatory support, with sedation recently weaned over the past few days. There was noted within the past day or 2 that he has not been moving his extremities, and an MRI of the cervical spine was subsequently obtained on 09/15/2017. This has revealed severe cervical stenosis with significant abnormal signal intensity within the cord. Review of his records indicates the patient to be moving all extremities during the first week or so of his hospitalization, although it is difficult to determine the grade of his motor function, with the patient very ill and apparently generally weak upon his initial presentation. Physical therapy notes reviewed, however therapy has not been able to consistently work with the patient due to his pulmonary problems and subsequent intubation and sedation. 06/18: Pt awake. Not verbalizing. Not following commands consistently tries to stick out tongue to command. 09/18: The patient is awake in bed. He is trached and on CPAP/PSV settings. He does look at this practitioner and tracks. He did not follow any commands. There was a trace of left foot movement to noxious stimulation. He did have facial grimacing also to noxious stimulation. Nursing reports that he did stick out his tongue after she demonstrated it. She also says that the patient squeezed with the left hand once but did not repeat it. 09/19: The patient went for a C3-5 laminoplasty and post-operatively was transferred back to the ISC unit. 09/20: Patient intubated 09/22: Intubated. Off sedation for examination 09/24: When seen this morning the patient is awake. He has no sedation infusing. He is trached and on CPAP. He is tachypneic and Nursing reports that he is having a harder time handling it today. She reported that he was moving the left upper spontaneously earlier. During evaluation he did not response to any stimuli but subsequently did move the left hand fingers slightly. Dr Srivastava with Palliative Care is to meet with the patient's son this morning. 09/25: Spoke with Palliative Care this morning who said family has made the patient essentially a no code. He believes they are leaning toward withdrawal but are waiting for a family member to travel here. The patient is awake and alert when seen. He is seen moving the left hand spontaneously after stimulation but has no response to noxious stimulation with the other extremities. 09/27: This morning the patient is awake and having an IV line placed by the Vascular Access team. He was seen spontaneously moving the left upper extremity prior to being seen. He nods his head slightly when told "hello" in [place]. He is still trached and on CPAP/PSV settings. He did not have any response to noxious stimulation of the right upper or either lower extremity. A review of Palliative Care's note yesterday indicates the family is still waiting for a family member to arrive from [place] before considering comfort measures. 09/28: Today the patient is awake and alert. He is still trached but on a T- piece. Nursing does report that he has been on the T-piece overnight. She reports that he is tachypneic but maintaining his oxygen saturation. When greeted in [place] he reached his left hand up off the bed for this practitioner 's hand. He did have slight movement of the right hand to command. There was no response to the lower extremities to any stimulation. 09/29: The patient is awake when seen. He is trached and still on the T-piece but he is tachypneic. He is seen moving the left upper extremity spontaneously. He had no response to noxious stimulation with the other extremities. 09/30: When seen the patient is asleep but he did open his eyes to voice. He remains trached and on a T-piece. He does spontaneously move the left upper extremity and moves it to noxious stimulation of the lower extremities. He had no extremity response with noxious stimulation to that extremity. 10/01: trached on t-piece. reports spontaneous movements left upper, no movements seen right upper and b/l LE. 10/02: no changes neuro checks overnight 10/03: Pt opens eyes to voice. Possibly closing eyes and opening them to command. He has some spontaneous flexion movement with left elbow but not following commands for muscle testing. Trach collar in place on humidified O2. 10/04: Pt more awake and alert this morning. Not following commands. He nods no to questions. Denies pain. Spontaneously moves left arm at elbow but not moving fingers or following commands. 10/05: Pt awake. He follows by mimicking. No movement in LEs or RUE. Some spontaneous movement in Left upper extremity at elbow not hand or proximally. [place] collar remains intact. 10/06: reports some minimal movement right upper, otherwise no significant changes to neuro checks 10/07/17: Pt awake. Opens mouth by mimicking. Not following other commands. 10/08: no neuro changes, palliative care following. 10/09: This morning the patient is asleep but opens his eyes when greeted in [place]. He does lift his left upper extremity to demonstration but does not move the other extremities to command/demonstration or noxious stimulation. The [place] cervical collar is in place. 10/15: The patient is awake and alert in bed. He responds to this practitioner when greeted in [place] and partially lifts his left hand off the bed. He did appear to try and give a thumbs up with the left hand when asked. He was noted to wiggle the toes of both feet slightly and the right hand minimally. He is still in the [place] cervical collar. 10/16: When seen the patient is awake in bed. He does move the left upper extremity minimally and has trace movement of the right upper extremity. He will also reposition his head a couple inches on the pillow. He had no movement of the lower extremities today. <Roc Castillo E - Last Filed: 10/16/17 09:47> Physical Exam Vital signs: Vital Signs 10/15/17 12:00 10/15/17 16:00 10/15/17 20:00 Temperature 98.7 F 97.6 F 96.9 F L Pulse Rate 74 60 104 H Respiratory Rate 14 12 16 Blood Pressure 124/82 110/82 143/91 H Pulse Oximetry 99 94 L 99 10/15/17 20:21 10/16/17 00:00 10/16/17 01:11 Temperature 97.1 F L Pulse Rate 104 H 98 H Respiratory Rate 22 16 Blood Pressure 130/83 Pulse Oximetry 97 95 97 10/16/17 04:00 10/16/17 09:24 Temperature 97.1 F L Pulse Rate 99 H 109 H Respiratory Rate 18 18 Blood Pressure 155/95 H Pulse Oximetry 94 L 96 Intake & Output 10/15/17 10/16/17 10/16/17 18:59 06:59 18:59 Intake Total 700 / 700 847 / 847 Output Total 780 / 780 900 / 900 Balance -80 / -80 -53 / -53 Weight 61.8 kg Intake: IV 100 / 100 Levaquin 500 mg Premix Inj 500 100 / 100 mg In 100 ml @ 100 mls/hr IV. SIG Q24H [facility] Rx#:[id number] Tube Feeding 600 / 600 647 / 647 Tube Irrigant 0 / 0 Water Bolus Amount 100 / 100 100 / 100 Output: Urine Amount (Catheter) 780 / 780 900 / 900 Indwelling Urethral Catheter 780 / 780 900 / 900 Other: Date of Last Bowel Movement 10/15/17 10/14/17 Narrative: GENERAL: Awake & alert. Trached and on T-piece. No apparent distress. HEENT: Normocephalic, atraumatic. Bringing up some secretions to back of oropharynx which were suctioned by this practitioner. NECK: The [place] cervical collar is in place. Trached. Surgical incision well approximated. No JVD. Trachea midline. MUSCULOSKELETAL: No evident clubbing or deformity. Dependent edema to all extremities. Slight spontaneous movement w/LUE & trace w/RUE. NEUROLOGICAL: Awake & alert. Trached, nonverbal. Slight spontaneous movement of LUE & trace w/RUE, no movement of the BLE. He did try to lift the left thumb in order to give a thumbs up when asked. No response to local noxious stimulation of the RUE or BLE other than facial grimacing. - Urinary Catheter Management Indwelling Urethral Catheter Cath placed during this visit: yes Urethral indwelling: Yes Reason for continuing: Acute urinary retention Insertion date: 08/20/17 Insertion time: 17:00 <Roc Castillo E - Last Filed: 10/16/17 09:47> Vital signs: Vital Signs 11/16/17 22:30 11/17/17 00:00 11/17/17 01:38 Temperature 98.4 F Pulse Rate 101 H 105 H Respiratory Rate 23 20 Blood Pressure 60/35 L 123/72 Pulse Oximetry 99 11/17/17 04:00 11/17/17 04:22 11/17/17 07:00 Temperature 98.0 F Pulse Rate 103 H Respiratory Rate 16 Blood Pressure 121/74 Pulse Oximetry 99 97 11/17/17 07:19 11/17/17 08:00 11/17/17 08:30 Temperature 98.4 F Pulse Rate 91 H 101 H 121 H Respiratory Rate 27 H 22 22 Blood Pressure 145/87 H 160/109 H Pulse Oximetry 100 98 97 11/17/17 10:00 11/17/17 10:45 11/17/17 11:00 Temperature Pulse Rate 120 H 119 H 122 H Respiratory Rate 20 24 20 Blood Pressure 166/110 H 159/77 H 158/96 H Pulse Oximetry 97 97 97 11/17/17 12:00 11/17/17 12:30 11/17/17 13:00 Temperature 98.6 F Pulse Rate 113 H 137 H 130 H Respiratory Rate 22 24 22 Blood Pressure 86/59 L 80/50 L 140/77 Pulse Oximetry 98 99 97 11/17/17 14:00 11/17/17 14:30 11/17/17 15:00 Temperature Pulse Rate 115 H 114 H 90 Respiratory Rate 22 25 H 20 Blood Pressure 113/70 128/82 110/65 Pulse Oximetry 97 98 99 11/17/17 15:15 11/17/17 15:30 11/17/17 15:45 Temperature Pulse Rate 91 H 89 86 Respiratory Rate 20 13 26 H Blood Pressure 111/67 118/72 117/69 Pulse Oximetry 99 99 99 11/17/17 16:00 11/17/17 16:30 11/17/17 19:00 Temperature Pulse Rate 116 H 108 H Respiratory Rate 22 20 Blood Pressure 156/94 H 142/84 H Pulse Oximetry 97 97 99 11/17/17 20:16 Temperature Pulse Rate 85 Respiratory Rate 22 Blood Pressure Pulse Oximetry 97 Intake & Output 11/17/17 11/17/17 11/18/17 06:59 18:59 06:59 Intake Total 1020 / 1020 1860 / 1860 Output Total 400 / 400 2450 / 2450 Balance 620 / 620 -590 / -590 Weight 75.4 kg Intake: IV 200 / 200 600 / 600 Zosyn 4.5 GM Premix 4.5 gm In 200 / 200 100 / 100 100 ml @ 200 mls/hr IV.SIG Q8HR [facility] Rx#:[id number] Tube Feeding 420 / 420 660 / 660 Tube Irrigant 100 / 100 Water Bolus Amount 300 / 300 600 / 600 Anesthesia Amount 0 / 0 Output: Urine 0 / 0 Stool 0 / 0 500 / 500 Urine/Stool Mix 0 / 0 Urine Amount (Catheter) 400 / 400 1950 / 1950 Indwelling Urethral Catheter 400 / 400 1949 Other: Date of Last Bowel Movement 11/15/17 11/12/17 # Bowel Movements 0 - Urinary Catheter Management Indwelling Urethral Catheter Cath placed during this visit: no <Anuj Victor - Last Filed: 11/17/17 22:08> Assessment and Plan - Plan Impression: 1. 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 2. Sepsis 3. Respiratory failure, tracheostomy in place. Now on CPAP "Advised the patient's son that a more extensive decompression could be pursued with full laminectomy and fusion, however this may be associated with its own increase chance of failed fusion, wound healing issues and more extensive anesthesia time. Realistically given the severe degree of atrophy and myelomalacia within the cord, it is unlikely that the patient will have any better outcome with a more aggressive decompression and stabilization procedure. The patient's son appears to understand this and indicates that he does not wish to try to pursue any further surgical intervention. I advised him that chance of any recovery of sensorimotor function is very slim, and if it does occur it could take several months. I advised him that it is highly unlikely that with any treatment the patient would be ambulatory again." - Dr Vcitor at 1924 Patient awake & alert. Spontaneously moves LUE slightly, w/trace movement of RUE , no movement of BLE. No RUE or BLE response w/noxious stimulation other than facial grimace. Past 24 hrs: Afebrile. Intermittently tachycardiac w/one episode of tachypnea. DBP elevated on 2 occasions. No labs for today. Cervical Spine MRI 09/25/17 00:00 CONCLUSION: 1. Status post laminectomy at the C3-C5 levels. Surgical hardware seen at the posterior elements at these levels. 2. Moderate stenosis at the C4-C5 level secondary to disc bulge and central disc protrusion. There is abnormal signal again seen within the cord. The cord appears small this region. This likely secondary to myelomalacia. 3. Mild to moderate narrowing of the thecal sac at the C5-C6 and C6-C7 level. 4. Neural foraminal narrowing throughout the cervical spine as described above. "Follow-up MRI 09/25/2017 images reveal good central decompression of the spinal cord in the mid to upper cervical region. There may be a small amount of epidural hematoma along the left side without significant canal compromise. There is significant thinning of the spinal cord at the previous C4-5 stenotic region with persistent increased signal intensity not significantly changed compared to preoperative study." - Dr Victor at 1916 s/p: C3-5 laminoplasty Plan: Primary & critical care management per Computed Tomography Technician. Palliative Care following. [place] cervical collar at all times. No further surgical interventions per son. intermediate manager care facility when medically stable. Follow up with Neurosurgery outpatient every 6 weeks from surgery with follow up cervical x-rays. Next follow up for x-rays around . Will intermittently follow patient. <Roc Castillo - Last Filed: 10/16/17 09:47> - Assessment (1) Cervical myelopathy Code(s): G95.9 - Disease of spinal cord, unspecified Status: Acute - Attending Attestation The exam, history, and the medical decision-making described in the above note were completed with the assistance of the mid-level provider. I reviewed and agree with the findings presented. I attest that I had a [id number] encounter with the patient on the same day, and personally performed and documented my assessment and findings in the medical record. <Anuj Victor - Last Filed: 11/17/17 22:08>
--- NOTE | 2017-10-16 10:35 | P.PNIM ---
Subjective Interval history: Case discussed with RN. No new issues. Patient is awake. Spontaneously moves left fingers. Physical Exam Vital signs: Vital Signs 10/15/17 12:00 10/15/17 16:00 10/15/17 20:00 Temperature 98.7 F 97.6 F 96.9 F L Pulse Rate 74 60 104 H Respiratory Rate 14 12 16 Blood Pressure 124/82 110/82 143/91 H Pulse Oximetry 99 94 L 99 10/15/17 20:21 10/16/17 00:00 10/16/17 01:11 Temperature 97.1 F L Pulse Rate 104 H 98 H Respiratory Rate 22 16 Blood Pressure 130/83 Pulse Oximetry 97 95 97 10/16/17 04:00 10/16/17 09:24 Temperature 97.1 F L Pulse Rate 99 H 109 H Respiratory Rate 18 18 Blood Pressure 155/95 H Pulse Oximetry 94 L 96 Intake & Output 10/15/17 10/16/17 10/16/17 18:59 06:59 18:59 Intake Total 700 / 700 847 / 847 Output Total 780 / 780 900 / 900 Balance -80 / -80 -53 / -53 Weight 61.8 kg Intake: IV 100 / 100 Levaquin 500 mg Premix Inj 500 100 / 100 mg In 100 ml @ 100 mls/hr IV. SIG Q24H [facility] Rx#:[id number] Tube Feeding 600 / 600 647 / 647 Tube Irrigant 0 / 0 Water Bolus Amount 100 / 100 100 / 100 Output: Urine Amount (Catheter) 780 / 780 900 / 900 Indwelling Urethral Catheter 780 / 780 900 / 900 Other: Date of Last Bowel Movement 10/15/17 10/14/17 Narrative: GENERAL: Awake & alert. No acute distress CARDIOVASCULAR: Normal rate and regular rhythm without murmurs, gallops, or rubs. RESPIRATORY: Breath sounds equal and clear to auscultation anteriorly. GASTROINTESTINAL: Abdomen soft, non-distended. Normal active bowel sounds NEURO: Awake & alert. Nonverbal. Spontaneous movement of the left hand. No other purposeful movement of any other extremities. - Urinary Catheter Management Indwelling Urethral Catheter Cath placed during this visit: yes Urethral indwelling: Yes Reason for continuing: Acute urinary retention Insertion date: 08/20/17 Insertion time: 17:00 Results - Labs CBC & Chem 7: 10/06/17 04:10/06/17 04:20 - Imaging Impressions Chest X-Ray 10/16/17 00:00 CONCLUSION: 1. No significant interval change. 2. Stable small left pleural effusion and associated left lower lobe airspace disease. - Procedures 08/23- intubation 09/03- bronchoscopy, lung biopsy, thoaracentesis 09/08- tracheostomy 09/11- PEG placement Assessment and Plan - Plan 77-year-old [place] male admitted 08/21/2017, with history of hypertension, gout and diabetes mellitus presenting initially with intermittent pain in his groin, upper thorax and around his back. CT angiogram showed bilateral emphysema and pulmonary nodules with compressive atelectasis of the right lower lobe. Biopsy was done which showed chronic inflammation reactive fibroblastic tissue. Patient was also found to have severe spinal stenosis, status post laminectomy. Patient's hospital stay was complicated by septic shock secondary to healthcare associated pneumonia and C. difficile colitis. Severe cervical spinal stenosis, status post C2 hemilaminectomy, C3 through 5 lamina plasty with quadriplegia and acute spinal injury. Toxic metabolic encephalopathy. - MRI C-spine 09/15: Focal severe spinal canal stenosis at C4-5. Moderate diffuse broad-based bulging at C3-4 with some mild increased signal in the spinal cord at this level. Moderate spinal canal stenosis at C6-C7 Bilateral facet arthritis at multiple levels. Head CT 08/23: 2 questionable tiny focal hemorrhages. MRI of brain 08/26 chronic small vessel ischemic and atrophic changes. EEG 09/03 revealed severe encephalopathy. No epileptiform activity - Neurosurgery Dr. Victor consulted, Poor chance of neurological recovery for him , recent discussion with Dr. Smith and son, no further surgical intervention per son. - Neurology Dr. Carvalho. Patient treated with steroids per neurology recommendations. Completed the course of treatment. Hypertension- - BP improved Atherosclerotic coronary artery disease, Atrial fibrillation- now in SR on telemetry -Continue metoprolol and digoxin, previously on amiodarone was stopped because of bradycardia. Acute, now chronic hypoxic hypercapnic respiratory failure secondary to COPD exacerbation, Trach site infection, Bilateral pleural effusion/status post chest tube right- sided transudative in nature. Chest tube removed 09/04 Multiple bilateral pulmonary masses vs infiltrate, RML mass vs consolidation -CT pulmonary angiogram revealed multiple masses. Lung mass biopsied on August 28 showed CHRONIC INFLAMMATORY AND REACTIVE FIBROBLASTIC TISSUE CONTAINING ENTRAPPED BENIGN EPITHELIUM, -Pulmonology following. s/p percutaneous tracheostomy 09/08 (Biga/Michael), Status post thoracentesis left side 09/09 with 1 L fluid removed. No evidence of infection. Chest tubes removed 09/04/2017. -Continue T-piece, continue budesonide, DuoNeb's, Levsin for secretions -Patient had worsening dyspnea on 10/15/17. Patient started on Levaquin per pulmonology. -Continue supplemental oxygen. Hypoalbuminemia Acute protein calorie malnutrition -severe -s/p PEG 09/11. Tolerating tube feeds with Glucerna 1.5 at 55 cc an hour, free water flushes 300 cc every 6 hours Urinary retention, possible urinary stricture Acute kidney injury Maintain [place] catheter. Diabetes mellitus Sliding scale insulin with NovoLog high regimen to maintain euglycemia. Levemir on hold, blood glucose stable. Severe sepsis - resolved Trach site infection - resolved Healthcare associated pneumonia - resolved C. difficile colitis - resolved. - Status post bronchoscopy 09/03 cultures negative, Appreciate ID input. PO vancomycin completed 09/30. FEN: Hypernatremia - resolved on PEG TF Prophylaxis -GI -lansoprazole. DVT -SCD/heparin subcutaneous Disposition: This gentleman remains weak and debilitated, functionally quadriparetic. Long-term prognosis for a meaningful recovery is quite poor. The best we can probably hope for is a skilled facility, continue t-piece trials and now working towards placement and decannulation. Patient awaiting bed at the long-term vent unit. Palliative care following, per discussion with his , No chest compressions but okay with mechanical ventilation. They refused hospice. Discharge Planning: Awaiting placement
[2017-10-16] MEDS: Metoprolol Tartrate 50 MG Tablet PO SCH ×2 (12:29→21:43)
--- NOTE | 2017-10-16 13:21 | P.PNPAL ---
Reason for Visit Reason for visit: a. To assist with evaluation and management of symptoms including: dyspnea, pain, b. To assist medical decision maker(s) with: better understanding of current medical conditions; weighing benefits/burdens of medical treatment options; making medical treatment decisions. Subjective Subjective/Interval History: Pt more stable today. Chest Xray show no significant interval change. at bedside did not want me to wake him up, as he has just fell asleep 5 min ago. denies he was painful. Family/Friend Interactions: No change in goals of care. Update her on Xray. Called son Humble which went to [facility]. Advance Directives Living Will: Never completed Health Care Surrogate: Never completed Durable Power of Cable Television Line Technician: Never completed Objective Vital Signs: Vital Signs 10/15/17 16:00 10/15/17 20:00 10/15/17 20:21 Temperature 97.6 F 96.9 F L Pulse Rate 60 104 H 104 H Respiratory Rate 12 16 22 Blood Pressure 110/82 143/91 H Pulse Oximetry 94 L 99 97 10/16/17 00:00 10/16/17 01:11 10/16/17 04:00 Temperature 97.1 F L 97.1 F L Pulse Rate 98 H 99 H Respiratory Rate 16 18 Blood Pressure 130/83 155/95 H Pulse Oximetry 95 97 94 L 10/16/17 08:00 10/16/17 09:24 10/16/17 12:00 Temperature 96.1 F L 97.8 F Pulse Rate 107 H 109 H 110 H Respiratory Rate 16 18 20 Blood Pressure 146/90 H 137/83 Pulse Oximetry 95 96 98 Intake & Output 10/15/17 10/16/17 10/16/17 18:59 06:59 18:59 Intake Total 700 / 700 847 / 847 Output Total 780 / 780 900 / 900 Balance -80 / -80 -53 / -53 Weight 61.8 kg Intake: IV 100 / 100 Levaquin 500 mg Premix Inj 500 100 / 100 mg In 100 ml @ 100 mls/hr IV. SIG Q24H [facility] Rx#:[id number] Tube Feeding 600 / 600 647 / 647 Tube Irrigant 0 / 0 Water Bolus Amount 100 / 100 100 / 100 Output: Urine Amount (Catheter) 780 / 780 900 / 900 Indwelling Urethral Catheter 780 / 780 900 / 900 Other: Date of Last Bowel Movement 10/15/17 10/14/17 10/15/17 Physical Exam: CONSTITUTIONAL/GENERAL: This is an adequately nourished patient , on mech vent . sleeping, TUBES/LINES/DRAINS: trach- t piece, ceja, PIV x2 BUE, SKIN: No jaundice, rashes, or lesions. No wounds seen anteriorly. skin warm/ dry EYES: no eye opening. No injection or drainage. Fundi not examined. ENT: Nose without bleeding or purulent drainage. Limited oropharynx exam /2 + T piece CARDIOVASCULAR: RRR without murmurs. No JVD. Peripheral pulses symmetric. Trace periph edema to hands. RESPIRATORY/CHEST: unlabored respirations Coarse breath sounds. Diminished sounds bases. GASTROINTESTINAL: Abdomen soft, non-tender, nondistended. No hepato-splenomegaly , or palpable masses. Bowel sounds present. TF infusing via OGT MUSCULOSKELETAL: Trace +BUE edema. +soft restraints lower ext. No mottling or clubbing. NEUROLOGICAL: can wiggle toes. Can grab finger on command on left upper ext. Some movement of right ext. PSYCH: no apparent distress, Diagnostic Tests Laboratory: Laboratory Results - last 72 hr 10/15/17 09:21 Puncture Site Right radial Patient Temperature 98.6 O2 Saturation 96 ABG pH 7.40 ABG pCO2 57 H* ABG pO2 169 H ABG HCO3 34 H ABG O2 Content 15.6 ABG Base Excess 9.1 H ABG Methemoglobin 1.3 Dave Test Y Hemoglobin 11.3 L Carboxyhemoglobin 2.2 O2 Delivery Device T piece Liter Flow 10.00 Inspired O2 50 Critical Value Yes Result Diagrams: 10/06/17 04:20 10/06/17 04:20 Imaging: Impressions Chest X-Ray 10/16/17 00:00 CONCLUSION: 1. No significant interval change. 2. Stable small left pleural effusion and associated left lower lobe airspace disease. 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 Right middle lobe 2.7 x 2.2 x 7's. Spiculated. Left lingula is 3.4 x 3.20 cm. COPD (2) SVT (supraventricular tachycardia) (3) Lung mass Comment: revealed 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 Right middle lobe 2.7 x 2.2 x 7's. Spiculated. Left lingula is 3.4 x 3.20 cm. 1st biopsy did not show malignancy. 2nd biopsy on hold to risk of decompensation. Pulmonlogy advise against 2nd biopsy given risk. Recommends repeat CT in 4 weeks. If mass decrease in size, more possiblility its infections rather than malignancy. (4) Diabetes (5) Gout (6) Spinal stenosis - Symptom Scale (1) Dyspnea 0-10 Scale: Unable to quantify (2) Pain 0-10 Scale: Unable to quantify Pertinent Non-Medical Issues: Psychosocial: Retired. He was living at home with his Tommie Gutierrez and his son "Cristina Palmer. Recently returned from 3 month trip to [place]. Speaks Mandarin only. He also has another son who had just arrive from [place]. He is awaiting for his grandson to arrive also from [place]. Spiritual: unk at this time Legal: Per [employer] legal decision maker proxy is pt's . It appears she may have been deferring to son but has been present for major decisions. Family appears are working together. Ethical issues impacting care: no issues identified Important Contacts: Spencer Reilly [phone] Son "Cristina Palmer [phone] Prognosis: 77 yo possible malignant lung nodules vs infection, underlying diastolic heart failure, severe spinal stenosis (s/p surgery) and DM. Prognosis is challenging at this point Pt has made some progress neurologically, wiggling his toes, and movement of upper ext. Prognosis for recovery may be impeded risk for infections bedsores, deconditioning and various complications remains. Oveall it is poor. Code Status: Alternative Code Plan: CODE STATUS - Alternate code. Yes to intubation and mechanical ventilation. no to cpr/ shock/ acls drugs. Capacity- he does not appears to be able to weigh the risk and benefits of decision on my visit. Alertness has improved. He does not appear to have insight or can weigh the risk and benefits. Remains lethargic and tired. LEGAL DECISION MAKER - per [employer] [place] statutes is proxy , who defers decisions to son, Humble, family all working together. Family meetings- multiple times this week. They have also met with hospice ( Humble and together). At times I have met with alone, at times with Humble (son). [employer] had been use for family meetings. We have reviewed pt's condition, how unstable he is and again reemphsize his overall poor prognosis for functional recovery Discussion of hospice and comfort measures again was discussed and offered. decline this alone. Pt's son also declined hospice. Code status review, and she state if respiratory status worsen, and icu support ventilator, to initiate it. She reemphazise now chest compression, shock, acls. Goals have not change short of compression,shock/acls drugs. At this point palliative care is providing support for pt and pt's family. SYMPTOMS * shortness of breath -. Questionable malignancy, hx remote TB. O. Status post tracheostomy. risk of decompensation. Family amenable to transferring back to icu, if respiratory status clinically worsen. * pain - ?cause? presented with right side and thoracic pain. imaging showing lung nodules. buttock wound. BX benign, ?repeat. appears comfortable, no signs of pain on exam. No pain today per . Oxycodone is available. Palliative care will continue to follow during hospital course as condition evolves to assist patient/decision maker with understanding of medical conditions, benefits/burdens of treatment options, clarification of goals of treatment, and will assist with symptoms of palliative concern. Attestation Attestation: To help prompt me to consider important information that might be impacting today's encounter and assessment, information from prior notes written by myself or my colleagues may have been "brought forward" into today's note. My signature on this note, however, is an attestation that I personally performed the exam, history, and/or decision-making noted today, and, unless otherwise indicated, the interactions with patient, family, and staff as well as the review of records all occurred today. I also attest that the listed assessment and stated plan reflect my best clinical judgment today based on the combination of historical information, prior notes, and today's exam/ interactions. When time spent is documented, it refers only to time spent today by the signer, or if indicated, combined time spent today by collaborating physician/nurse practitioner.
--- NOTE | 2017-10-16 19:28 | P.PN ---
Subjective Interval history: Awake and responds to commands. On T Bar at 35 % and sats are 96. Good output. Trach site is clear. Physical Exam Vital signs: Vital Signs 10/15/17 20:00 10/15/17 20:21 10/16/17 00:00 Temperature 96.9 F L 97.1 F L Pulse Rate 104 H 104 H 98 H Respiratory Rate 16 22 16 Blood Pressure 143/91 H 130/83 Pulse Oximetry 99 97 95 10/16/17 01:11 10/16/17 04:00 10/16/17 08:00 Temperature 97.1 F L 96.1 F L Pulse Rate 99 H 107 H Respiratory Rate 18 16 Blood Pressure 155/95 H 146/90 H Pulse Oximetry 97 94 L 95 10/16/17 09:24 10/16/17 12:00 10/16/17 16:00 Temperature 97.8 F 98.4 F Pulse Rate 109 H 110 H 98 H Respiratory Rate 18 20 20 Blood Pressure 137/83 111/72 Pulse Oximetry 96 98 99 Intake & Output 10/16/17 10/16/17 10/17/17 06:59 18:59 06:59 Intake Total 847 / 847 1760 / 1760 Output Total 900 / 900 1100 / 1100 Balance -53 / -53 660 / 660 Weight 61.8 kg Intake: IV 100 / 100 1000 / 1000 NS Inj 1,000 ML @ 42 mls/hr IV. 1000 / 1000 CONT .[id number] [facility] Rx#:[id number] Levaquin 500 mg Premix Inj 500 100 / 100 mg In 100 ml @ 100 mls/hr IV. SIG Q24H [facility] Rx#:[id number] Oral 0 / 0 Tube Feeding 647 / 647 660 / 660 Tube Irrigant 0 / 0 Water Bolus Amount 100 / 100 100 / 100 Anesthesia Amount 0 / 0 Output: Estimated Blood Loss 300 / 300 Urine Amount (Catheter) 900 / 900 800 / 800 Indwelling Urethral Catheter 900 / 900 800 / 800 Other: Date of Last Bowel Movement 10/14/17 10/15/17 Narrative: GENERAL: Awake & alert. No acute distress Trach tube in neck.On a T bar with O2 CARDIOVASCULAR: Normal rate and regular rhythm without murmurs, gallops, or rubs. RESPIRATORY: Breath sounds equal and occ wheeze heard. GASTROINTESTINAL: Abdomen soft, non-distended. Normal active bowel sounds NEURO: Awake & alert. Nonverbal. Spontaneous movement of the left hand. No other purposeful movement of any other extremities. - Urinary Catheter Management Indwelling Urethral Catheter Cath placed during this visit: yes Urethral indwelling: Yes Reason for continuing: Acute urinary retention Insertion date: 08/20/17 Insertion time: 17:00 Results - Labs CBC & Chem 7: 10/06/17 04:20 10/06/17 04:20 - Imaging Impressions Chest X-Ray 10/16/17 00:00 CONCLUSION: 1. No significant interval change. 2. Stable small left pleural effusion and associated left lower lobe airspace disease. - Procedures 08/23- intubation 09/03- bronchoscopy, lung biopsy, thoaracentesis 09/08- tracheostomy 09/11- PEG placement Assessment and Plan - Assessment (1) Cervical myelopathy Code(s): G95.9 - Disease of spinal cord, unspecified Status: Acute (2) Respiratory failure Code(s): J96.90 - Respiratory failure, unspecified, unspecified whether with hypoxia or hypercapnia Status: Acute (3) SVT (supraventricular tachycardia) Code(s): I47.1 - Supraventricular tachycardia Status: Acute (4) Lung mass Code(s): R91.8 - Other nonspecific abnormal finding of lung field Status: Acute (5) Diabetes Code(s): E11.9 - Type 2 diabetes mellitus without complications Status: Acute (6) Gout Code(s): M10.9 - Gout, unspecified Status: Acute (7) Spinal stenosis Code(s): M48.00 - Spinal stenosis, site unspecified Status: Acute (8) Dyspnea Code(s): R06.00 - Dyspnea, unspecified Status: Acute - Plan 1. Cont T Bar at 35 % FIO2 and wean to keep sat >92 . 2. Trach lavage and suction PRN 3. Cont Duoneb nebs qid. 4. CXR in am 5. Tube feeds at 60CC 6. PT evaluation. 7. May need to add CPAP at HS 8. Cont levaquin 500 mg daily X 7 for left base Infiltrate
[2017-10-16] MEDS: Levofloxacin 500 mg Premix Inj 500 MG/100 ML PIGGYBACK IV.SIG SCH (20:40)
[2017-10-16] MEDS: Sod Chloride 0.9% Inj 1,000 ML IV.CONT SCH (21:42)
[2017-10-16] MEDS: Hyoscyamine Inj 0.5 MG/ML Ampul IV.PUSH PRN (21:43)
[2017-10-16] MEDS ORDERED: Dextrose 50% in Water 50 ML Vial IV.PUSH PRN (23:33)
[2017-10-17] MEDS: Insulin NovoLOG Aspart Correctional Sugar Inj SQ SCH ×4 (00:34→18:00)
--- NOTE | 2017-10-17 01:15 | P.PNIM ---
Subjective Interval history: Patient sleeping, wakes up for exam. No perceived communication. Physical Exam Vital signs: Vital Signs 10/16/17 04:00 10/16/17 08:00 10/16/17 09:24 Temperature 97.1 F L 96.1 F L Pulse Rate 99 H 107 H 109 H Respiratory Rate 18 16 18 Blood Pressure 155/95 H 146/90 H Pulse Oximetry 94 L 95 96 10/16/17 12:00 10/16/17 16:00 10/16/17 19:41 Temperature 97.8 F 98.4 F Pulse Rate 110 H 98 H Respiratory Rate 20 20 Blood Pressure 137/83 111/72 Pulse Oximetry 98 99 99 10/16/17 19:42 10/16/17 20:00 10/17/17 00:00 Temperature 96.6 F L 97.1 F L Pulse Rate 105 H 101 H 80 Respiratory Rate 20 18 16 Blood Pressure 135/81 101/56 L Pulse Oximetry 99 98 Intake & Output 10/16/17 10/16/17 10/17/17 06:59 18:59 06:59 Intake Total 847 / 847 1760 / 1760 100 / 100 Output Total 900 / 900 1100 / 1100 Balance -53 / -53 660 / 660 100 / 100 Weight 61.8 kg Intake: IV 100 / 100 1000 / 1000 100 / 100 NS Inj 1,000 ML @ 42 mls/hr IV. 1000 / 1000 CONT .[id number] [facility] Rx#:[id number] Levaquin 500 mg Premix Inj 500 100 / 100 100 / 100 mg In 100 ml @ 100 mls/hr IV. SIG Q24H [facility] Rx#:[id number] Oral 0 / 0 Tube Feeding 647 / 647 660 / 660 Tube Irrigant 0 / 0 Water Bolus Amount 100 / 100 100 / 100 Anesthesia Amount 0 / 0 Output: Estimated Blood Loss 300 / 300 Urine Amount (Catheter) 900 / 900 800 / 800 Indwelling Urethral Catheter 900 / 900 800 / 800 Other: Date of Last Bowel Movement 10/14/17 10/15/17 Narrative: GENERAL:. Opens eyes. Otherwise no communication. SKIN: Warm and dry. HEAD: Normocephalic. EYES: No scleral icterus. No injection or drainage. NECK: Supple, trachea midline. No JVD. Tracheostomy in place without surrounding erythema. CARDIOVASCULAR: Regular rate and rhythm without murmurs, gallops, or rubs. RESPIRATORY: Breath sounds equal bilaterally. No accessory muscle use. GASTROINTESTINAL: Abdomen soft, non-tender, nondistended. PEG tube in place without surrounding erythema or leakage. MUSCULOSKELETAL: No cyanosis, or edema. BACK: Nontender without obvious deformity. No CVA tenderness. - Urinary Catheter Management Indwelling Urethral Catheter Cath placed during this visit: yes Urethral indwelling: Yes Reason for continuing: Acute urinary retention Insertion date: 08/20/17 Insertion time: 17:00 Results - Labs CBC & Chem 7: 10/06/17 04:20 10/06/17 04:20 Laboratory Results - last 24 hr 10/17/17 00:21 POC Glucose 223 H - Imaging Impressions Chest X-Ray 10/16/17 00:00 CONCLUSION: 1. No significant interval change. 2. Stable small left pleural effusion and associated left lower lobe airspace disease. - Procedures 08/23- intubation 09/03- bronchoscopy, lung biopsy, thoaracentesis 09/08- tracheostomy 09/11- PEG placement Assessment and Plan - Plan 10/17/17. Patient seen and examined. Discussed with nursing. Tolerating tube feeds. Positive bowel movement. Hyperglycemic in the 200s. Will restart Levemir and free water flushes. Recheck labs tomorrow 77-year-old [place] male admitted 08/21/2017, with history of hypertension, gout and diabetes mellitus presenting initially with intermittent pain in his groin, upper thorax and around his back. CT angiogram showed bilateral emphysema and pulmonary nodules with compressive atelectasis of the right lower lobe. Biopsy was done which showed chronic inflammation reactive fibroblastic tissue. Patient was also found to have severe spinal stenosis, status post laminectomy. Patient's hospital stay was complicated by septic shock secondary to healthcare associated pneumonia and C. difficile colitis. //Severe cervical spinal stenosis, status post C2 hemilaminectomy, C3 through 5 lamina plasty with quadriplegia and acute spinal injury. Toxic metabolic encephalopathy. - MRI C-spine 09/15: Focal severe spinal canal stenosis at C4-5. Moderate diffuse broad-based bulging at C3-4 with some mild increased signal in the spinal cord at this level. Moderate spinal canal stenosis at C6-C7 Bilateral facet arthritis at multiple levels. Head CT 08/23: 2 questionable tiny focal hemorrhages. MRI of brain 6/12 chronic small vessel ischemic and atrophic changes. EEG 09/03 revealed severe encephalopathy. No epileptiform activity - Neurosurgery Dr. Victor consulted, Poor chance of neurological recovery for him , recent discussion with Dr. Smith and son, no further surgical intervention per son. - Neurology Dr. Carvalho. Patient treated with steroids per neurology recommendations. Completed the course of treatment. //Hypertension- - BP improved Atherosclerotic coronary artery disease, Atrial fibrillation- now in SR on telemetry -Continue metoprolol and digoxin, previously on amiodarone was stopped because of bradycardia. //Acute, now chronic hypoxic hypercapnic respiratory failure secondary to COPD exacerbation, //Trach site infection, Bilateral pleural effusion/status post chest tube right- sided transudative in nature. Chest tube removed 09/04 //Multiple bilateral pulmonary masses vs infiltrate, RML mass vs consolidation -CT pulmonary angiogram revealed multiple masses. Lung mass biopsied on August 28 showed CHRONIC INFLAMMATORY AND REACTIVE FIBROBLASTIC TISSUE CONTAINING ENTRAPPED BENIGN EPITHELIUM, -Pulmonology following. s/p percutaneous tracheostomy 09/08 ([facility]/[place]), Status post thoracentesis left side 09/09 with 1 L fluid removed. No evidence of infection. Chest tubes removed 09/04/2017. -Continue T-piece, continue budesonide, DuoNeb's, Levsin for secretions -Patient had worsening dyspnea on 10/15/17. Patient started on Levaquin per pulmonology. -Continue supplemental oxygen. //Hypoalbuminemia //Acute protein calorie malnutrition -severe -s/p PEG 09/11. Tolerating tube feeds with Glucerna 1.5 at 55 cc an hour, free water flushes 300 cc every 6 hours //Urinary retention, possible urinary stricture //Acute kidney injury Maintain Larson catheter. //Diabetes mellitus Sliding scale insulin with NovoLog high regimen to maintain euglycemia. Levemir on hold, blood glucose stable. //Severe sepsis - resolved //Trach site infection - resolved //Healthcare associated pneumonia - resolved //C. difficile colitis - resolved. - Status post bronchoscopy 09/03 cultures negative, Appreciate ID input. PO vancomycin completed 09/30. FEN: //Hypernatremia - resolved on PEG TF //Prophylaxis -GI -lansoprazole. DVT -SCD/heparin subcutaneous Discussed Condition With: nurse Discharge Planning: This gentleman remains weak and debilitated, functionally quadriparetic. Long- term prognosis for a meaningful recovery is quite poor. The best we can probably hope for is a skilled facility, continue t-piece trials and now working towards placement and decannulation. Patient awaiting bed at the long- term vent unit. Palliative care following, per previous discussion with his , No chest compressions but okay with mechanical ventilation. They refused hospice. Awaiting placement
[2017-10-17] MEDS: Metoprolol Tartrate 50 MG Tablet PO SCH ×2 (08:48→21:00)
[2017-10-17] MEDS: LORazepam 1 MG Tablet G-TUBE PRN ×2 (08:49→23:48)
[2017-10-17] MEDS: Insulin Detemir Inj 1,000 UNIT/10 ML Vial SQ SCH ×2 (09:00→21:00)
--- NOTE | 2017-10-17 11:53 | P.PNPAL ---
Reason for Visit Reason for visit: a. To assist with evaluation and management of symptoms including: dyspnea, pain, b. To assist medical decision maker(s) with: better understanding of current medical conditions; weighing benefits/burdens of medical treatment options; making medical treatment decisions. Subjective Subjective/Interval History: Last night had increase need of FIO2. Currently stable. Pt's family(son, and ).at bedside, denies pain. Have secretions, son is suctioning. Family/Friend Interactions: No change in Goals of care. If pt becomes unstable, they would want transfer back to the unit. Goals aggressive short of compression/shock/acls drugs. Advance Directives Living Will: Never completed Health Care Surrogate: Never completed Durable Power of Housing Management Officer: Never completed Objective Vital Signs: Vital Signs 10/16/17 12:00 10/16/17 16:00 10/16/17 19:41 Temperature 97.8 F 98.4 F Pulse Rate 110 H 98 H Respiratory Rate 20 20 Blood Pressure 137/83 111/72 Pulse Oximetry 98 99 99 10/16/17 19:42 10/16/17 20:00 10/17/17 00:00 Temperature 96.6 F L 97.1 F L Pulse Rate 105 H 101 H 80 Respiratory Rate 20 18 16 Blood Pressure 135/81 101/56 L Pulse Oximetry 99 98 10/17/17 04:00 10/17/17 05:12 10/17/17 07:33 Temperature 97.0 F L Pulse Rate 101 H 96 H Respiratory Rate 18 20 Blood Pressure 150/90 H Pulse Oximetry 98 98 98 Intake & Output 10/16/17 10/17/17 10/17/17 18:59 06:59 18:59 Intake Total 1760 / 1760 1348 / 1348 Output Total 1100 / 1100 950 / 950 Balance 660 / 660 398 / 398 Weight 61.8 kg Intake: IV 1000 / 1000 100 / 100 NS Inj 1,000 ML @ 42 mls/hr IV. 1000 / 1000 CONT .[id number] [facility] Rx#:[id number] Levaquin 500 mg Premix Inj 500 100 / 100 mg In 100 ml @ 100 mls/hr IV. SIG Q24H MICHELET Rx#:[id number] Oral 0 / 0 Tube Feeding 660 / 660 648 / 648 Tube Irrigant 0 / 0 Water Bolus Amount 100 / 100 600 / 600 Anesthesia Amount 0 / 0 Output: Estimated Blood Loss 300 / 300 Urine Amount (Catheter) 800 / 800 950 / 950 Indwelling Urethral Catheter 800 / 800 950 / 950 Other: Date of Last Bowel Movement 10/15/17 10/15/17 Physical Exam: CONSTITUTIONAL/GENERAL: This is an adequately nourished patient , on mech vent . awake, follow some commands, TUBES/LINES/DRAINS: trach- t piece, ceja, PIV x2 BUE, SKIN: No jaundice, rashes, or lesions. No wounds seen anteriorly. skin warm/ dry EYES: no eye opening. No injection or drainage. Fundi not examined. ENT: Nose without bleeding or purulent drainage. Limited oropharynx exam 2/2 + T piece CARDIOVASCULAR: RRR without murmurs. No JVD. Peripheral pulses symmetric. Trace periph edema to hands. RESPIRATORY/CHEST: unlabored respirations Coarse breath sounds. Diminished sounds bases. GASTROINTESTINAL: Abdomen soft, non-tender, nondistended. No hepato-splenomegaly , or palpable masses. Bowel sounds present. TF infusing via OGT MUSCULOSKELETAL: Trace +BUE edema. +soft restraints lower ext. No mottling or clubbing. NEUROLOGICAL: can wiggle toes. Can grab finger on command on left upper ext. Some movement of right ext. PSYCH: no apparent distress, Diagnostic Tests Laboratory: Laboratory Results - last 72 hr 10/15/17 10/17/17 10/17/17 09:21 00:21 05:55 Puncture Site Right radial Patient Temperature 98.6 O2 Saturation 96 ABG pH 7.40 ABG pCO2 57 H* ABG pO2 169 H ABG HCO3 34 H ABG O2 Content 15.6 ABG Base Excess 9.1 H ABG Methemoglobin 1.3 Dave Test Y Hemoglobin 11.3 L Carboxyhemoglobin 2.2 O2 Delivery Device T piece Liter Flow 10.00 Inspired O2 50 Critical Value Yes POC Glucose 223 H 93 Result Diagrams: 10/06/17 04:20 10/06/17 04:20 Assessment and Plan - Disease Oriented Problem List (1) Respiratory failure Comment: revealed 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 Right middle lobe 2.7 x 2.2 x 7's. Spiculated. Left lingula is 3.4 x 3.20 cm. COPD (2) SVT (supraventricular tachycardia) (3) Lung mass Comment: revealed 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 Right middle lobe 2.7 x 2.2 x 7's. Spiculated. Left lingula is 3.4 x 3.20 cm. 1st biopsy did not show malignancy. 2nd biopsy on hold to risk of decompensation. Pulmonlogy advise against 2nd biopsy given risk. Recommends repeat CT in 4 weeks. If mass decrease in size, more possiblility its infections rather than malignancy. (4) Diabetes (5) Gout (6) Spinal stenosis Pertinent Non-Medical Issues: Psychosocial: Retired. He was living at home with his Tommie Gutierrez and his son "Cristina Palmer. Recently returned from 3 month trip to [place]. Speaks Mandarin only. He also has another son who had just arrive from [place]. He is awaiting for his grandson to arrive also from [place]. Spiritual: unk at this time Legal: Per [place] stat[employer] legal decision maker proxy is pt's . It appears she may have been deferring to son but has been present for major decisions. Family appears are working together. Ethical issues impacting care: no issues identified Important Contacts: Spencer Reilly [phone] Son "Cristina Palmer [phone] Prognosis: 77 yo possible malignant lung nodules vs infection, underlying diastolic heart failure, severe spinal stenosis (s/p surgery) and DM. Prognosis is challenging at this point Pt has made some progress neurologically, wiggling his toes, and movement of upper ext. He is have these occasional desats, but seems to stablize. Prognosis for recovery may be impeded risk for infections bedsores, deconditioning and various complications remains. Oveall it is poor. Code Status: Alternative Code Plan: CODE STATUS - Alternate code. Yes to intubation and mechanical ventilation. no to cpr/ shock/ acls drugs. Capacity- he does not appears to be able to weigh the risk and benefits of decision on my visit. Alertness has improved. He does not appear to have insight or can weigh the risk and benefits. Remains lethargic and tired. LEGAL DECISION MAKER - per [place] statutes is proxy , who defers decisions to son, [place], family all working together. Family meetings- multiple times this week. They have also met with hospice ( [place] and together). At times I have met with alone, at times with Humble (son). [employer] had been use for family meetings. We have reviewed pt's condition, how unstable he is and again remphsize his overall poor prognosis for functional recovery Discussion of hospice and comfort measures again was discussed and offered, they have also met with hospice earlier this week. decline this alone. Pt's son also declined hospice. Code status review, and she state if respiratory status worsen, and icu support ventilator, to initiate it. Goals have not change short of compression,shock/acls drugs. At this point palliative care is providing support for pt and pt's family. SYMPTOMS * shortness of breath -. Questionable malignancy, hx remote TB. O. Status post tracheostomy. risk of decompensation. Family amenable to transferring back to icu, if respiratory status clinically worsen. * pain - ?cause? presented with right side and thoracic pain. imaging showing lung nodules. buttock wound. BX benign, ?repeat. appears comfortable, no signs of pain on exam. No pain today per . Oxycodone is available. Palliative care will continue to follow during hospital course as condition evolves to assist patient/decision maker with understanding of medical conditions, benefits/burdens of treatment options, clarification of goals of treatment, and will assist with symptoms of palliative concern. Attestation Attestation: To help prompt me to consider important information that might be impacting today's encounter and assessment, information from prior notes written by myself or my colleagues may have been "brought forward" into today's note. My signature on this note, however, is an attestation that I personally performed the exam, history, and/or decision-making noted today, and, unless otherwise indicated, the interactions with patient, family, and staff as well as the review of records all occurred today. I also attest that the listed assessment and stated plan reflect my best clinical judgment today based on the combination of historical information, prior notes, and today's exam/ interactions. When time spent is documented, it refers only to time spent today by the signer, or if indicated, combined time spent today by collaborating physician/nurse practitioner.
[2017-10-17] MEDS: Hyoscyamine Inj 0.5 MG/ML Ampul IV.PUSH PRN (18:12)
[2017-10-17] MEDS: Levofloxacin 500 mg Premix Inj 500 MG/100 ML PIGGYBACK IV.SIG SCH (20:24)
[2017-10-18] MEDS: Insulin NovoLOG Aspart Correctional Sugar Inj SQ SCH ×4 (06:00→19:34)
--- NOTE | 2017-10-18 07:36 | P.PN ---
Subjective Interval history: Patient seen and examined this morning, their vitals are stable and the patient is afebrile. Case discussed with nurse, no overnight events, no change in clinical status. Physical Exam Vital signs: Vital Signs 10/17/17 07:33 10/17/17 08:00 10/17/17 12:00 Temperature 96.4 F L 98.7 F Pulse Rate 96 H 100 H 98 H Respiratory Rate 20 20 20 Blood Pressure 107/66 130/68 Pulse Oximetry 98 99 100 10/17/17 16:00 10/17/17 20:00 10/17/17 20:10 Temperature 98.6 F 97.4 F L Pulse Rate 100 H 103 H Respiratory Rate 20 24 30 H Blood Pressure 118/68 89/52 L Pulse Oximetry 100 98 10/17/17 21:49 10/18/17 00:00 10/18/17 02:30 Temperature 98.3 F Pulse Rate 100 H 104 H Respiratory Rate 22 28 H Blood Pressure 109/60 Pulse Oximetry 97 98 96 10/18/17 04:00 Temperature 98.4 F Pulse Rate 95 H Respiratory Rate 22 Blood Pressure 102/58 L Pulse Oximetry 97 Intake & Output 10/17/17 10/18/17 10/18/17 18:59 06:59 18:59 Intake Total 1360 / 1360 Output Total 1500 / 1500 Balance -140 / -140 Intake: Oral 0 / 0 Tube Feeding 660 / 660 Tube Irrigant 0 / 0 Water Bolus Amount 600 / 600 Anesthesia Amount 0 / 0 Other 100 / 100 Output: Urine Amount (Catheter) 1500 / 1500 Indwelling Urethral Catheter 1500 / 1500 Other: Other Intake Source Saline Solution Date of Last Bowel Movement 10/17/17 10/15/17 # Bowel Movements 1 Narrative: GENERAL:. Opens eyes. Otherwise no communication. Squeezes my hand. SKIN: Warm and dry. HEAD: Normocephalic. EYES: No scleral icterus. No injection or drainage. NECK: Supple, trachea midline. No JVD. Tracheostomy in place without surrounding erythema. CARDIOVASCULAR: Regular rate and rhythm without murmurs, gallops, or rubs. RESPIRATORY: Breath sounds equal bilaterally. No accessory muscle use. GASTROINTESTINAL: Abdomen soft, non-tender, nondistended. PEG tube in place without surrounding erythema or leakage. MUSCULOSKELETAL: No cyanosis, or edema. BACK: Nontender without obvious deformity. No CVA tenderness. - Urinary Catheter Management Indwelling Urethral Catheter Cath placed during this visit: yes Urethral indwelling: Yes Reason for continuing: Acute urinary retention Insertion date: 08/20/17 Insertion time: 17:00 Results - Labs CBC & Chem 7: 10/06/17 04:20 10/06/17 04:20 Laboratory Results - last 24 hr 10/17/17 10/17/17 10/18/17 13:09 17:32 01:21 POC Glucose 148 H 172 H 111 H 10/18/17 06:13 POC Glucose 131 H - Procedures 08/23- intubation 09/03- bronchoscopy, lung biopsy, thoaracentesis 09/08- tracheostomy 09/11- PEG placement Assessment and Plan - Plan In summary this is a 77-year-old man with a medical history significant for hypertension, gout, diabetes who initially presented with pain in his groin and back. CT angiogram showed bilateral emphysema and pulmonary nodules with compressive atelectasis of right lower lobe. Patient underwent a biopsy which showed chronic inflammation, and reactive fibroblastic tissue. He was also found to have significant spinal stenosis and underwent a laminectomy by neurosurgery. The patient's hospital stay was complicated by septic shock secondary to hospital-acquired pneumonia and C. difficile. Severe cervical spinal stenosis Status post C2 hemicolectomy, C3 through C5 laminoplasty with quadriplegia and acute spinal injury MRI C-spine 09/15: Focal severe spinal canal stenosis at C4-5. Moderate diffuse broad-based bulging at C3-4 with some mild increased signal in the spinal cord at this level. Moderate spinal canal stenosis at C6-C7 Bilateral facet arthritis at multiple levels. Head CT 08/23: 2 questionable tiny focal hemorrhages. MRI of brain 08/26 chronic small vessel ischemic and atrophic changes. EEG 09/03 revealed severe encephalopathy. No epileptiform activity Neurosurgery Dr. Victor consulted, Poor chance of neurological recovery for him, recent discussion with Dr. Smith and son, no further surgical intervention per son. Neurology Dr. Carvalho. Patient treated with steroids per neurology recommendations. Completed the course of treatment. Hypertension CAD A-Fib continue metoprolol & digoxin (was previously on amiodarone, was stopped due to bradycardia) BP is stable Acute on chronic respiratory failure secondary to COPD CT pulmonary angiogram revealed multiple masses. Lung mass biopsied on August 28 showed CHRONIC INFLAMMATORY AND REACTIVE FIBROBLASTIC TISSUE CONTAINING ENTRAPPED BENIGN EPITHELIUM. Second biopsy on hold due to risk of decompensation. Pulmonology has advised against doing a second biopsy given significant risk. Repeat CT scan in 4 weeks, if mass decrease in size more likely that this is infectious etiology malignancy. Pulmonology following: Continue Levaquin 500 mg daily 7 (10/15-10/21)days for left base infiltrate, trach lavage and suction as needed, continue to collar at 35% FiO2 and wean to keep sats greater than 92 Severe malnutrition Tolerating tube feeds Urinary retention Larson Diabetes Continue sliding scale Levemir on hold Sever Sepsis: resolved Trach Site infection: Resolved HCAP: resolved C. Diff colitis: resolved FEN DVT proph: SCDs & heparin GI: lansoprazole Discharge Planning: Prognosis is poor. Palliative care is following the patient and has discussed met with the patient's family. Discussion of hospice and comfort measures as been discussed with the family have met with hospice. declines at this time. Son also has declined hospice at this time.
[2017-10-18] MEDS: Metoprolol Tartrate 50 MG Tablet PO SCH ×2 (08:41→22:27)
[2017-10-18] MEDS: Insulin Detemir Inj 1,000 UNIT/10 ML Vial SQ SCH ×2 (09:06→22:28)
[2017-10-18 09:37] LABS: Hematocrit 32.8 % (39.0-51.0); Hemoglobin 10.5 gm/dL (13.0-17.0); Mean Corpuscular Hemoglobin 30.3 pg (27.0-34.0); Mean Corpuscular Volume 94.7 fL (80.0-100.0); Mean Platelet Volume 7.1 fL (7.0-11.0); Platelet Count 284 th/mm3 (150-450); Red Blood Count 3.46 mil/mm3 (4.50-5.90); Red Cell Distribution Width 19.1 % (11.6-17.2); White Blood Count 5.8 th/mm3 (4.0-11.0)
[2017-10-18 10:06] LABS: Anion Gap 6 meq/L (5-15); Blood Urea Nitrogen 20 mg/dL (7-18); Calcium 8.8 mg/dL (8.5-10.1); Chloride 100 meq/L (98-107); Glomerular Filtration Rate Greater Than 89 mL/min (>89); Glucose,Random 145 mg/dL (74-106); Potassium 3.8 meq/L (3.5-5.1); Sodium 142 meq/L (136-145)
[2017-10-18 10:21] LABS: Eosinophils 1 % (0-4); Lymphocytes 9 % (9-44); Monocytes 11 % (0-8); Myelocytes 5 % (0-0)
[2017-10-18 10:22] LABS: Platelet Estimate Normal (Normal); Platelet Morphology Normal (Normal); Tear Drop Cells 1+
[2017-10-18] MEDS: Levofloxacin 500 mg Premix Inj 500 MG/100 ML PIGGYBACK IV.SIG SCH (22:30)
[2017-10-19] MEDS: Insulin NovoLOG Aspart Correctional Sugar Inj SQ SCH ×4 (00:17→18:33)
--- NOTE | 2017-10-19 07:06 | P.PN ---
Subjective Interval history: Patient seen and examined this morning, their vitals are stable and the patient is afebrile. Case discussed with nurse, patient pulled out trach overnight and had it in his mouth. Patient expressed frustration. Hands were placed in restraints. This am was given something by mouth and began coughing/choking. Patient was noted to have some increase work of breathing. Desat to mid 85%. Respiratory at bedside. Physical Exam Vital signs: Vital Signs 10/18/17 08:00 10/18/17 10:01 10/18/17 10:02 Temperature 97.6 F Pulse Rate 110 H 105 H Respiratory Rate 20 20 Blood Pressure 111/70 Pulse Oximetry 96 98 10/18/17 12:00 10/18/17 16:00 10/18/17 20:00 Temperature 97.5 F L 98.5 F 98.1 F Pulse Rate 70 80 107 H Respiratory Rate 20 20 22 Blood Pressure 133/86 147/64 H 145/69 H Pulse Oximetry 98 94 L 95 10/19/17 00:00 10/19/17 00:23 10/19/17 04:00 Temperature 98 F 98.2 F Pulse Rate 89 93 H Respiratory Rate 22 22 Blood Pressure 122/71 138/66 Pulse Oximetry 96 95 97 Intake & Output 10/18/17 10/19/17 10/19/17 18:59 06:59 18:59 Intake Total 1510 / 1510 1490 / 1490 Output Total 900 / 900 1300 / 1300 Balance 610 / 610 190 / 190 Weight 63.8 kg Intake: Oral 150 / 150 120 / 120 Tube Feeding 660 / 660 610 / 610 Tube Irrigant 60 / 60 Water Bolus Amount 700 / 700 600 / 600 Anesthesia Amount 0 / 0 Other 100 / 100 Output: Estimated Blood Loss 300 / 300 Urine Amount (Catheter) 900 / 900 1000 / 1000 Indwelling Urethral Catheter 900 / 900 1000 / 1000 Other: Other Intake Source Saline Solution Date of Last Bowel Movement 10/18/17 10/19/17 # Bowel Movements 3 # Incontinent Bowel Movements 3 Narrative: Examined patient after respiratory had intervened) GENERAL:. Opens eyes. Otherwise no communication. Squeezes my hand. SKIN: Warm and dry. HEAD: Normocephalic. EYES: No scleral icterus. No injection or drainage. NECK: Supple, trachea midline. No JVD. Tracheostomy in place without surrounding erythema. CARDIOVASCULAR: Regular rate and rhythm without murmurs, gallops, or rubs. RESPIRATORY: No increase work of breathing, saturating in the 90s on trach, some coarse breath sounds are heard bilaterally. GASTROINTESTINAL: Abdomen soft, non-tender, nondistended. PEG tube in place without surrounding erythema or leakage. MUSCULOSKELETAL: No cyanosis, or edema. BACK: Nontender without obvious deformity. No CVA tenderness. - Urinary Catheter Management Indwelling Urethral Catheter Cath placed during this visit: yes Urethral indwelling: Yes Reason for continuing: Hourly intake/output Insertion date: 08/20/17 Insertion time: 17:00 Results - Labs CBC & Chem 7: 10/18/17 08:30 10/18/17 08:30 Laboratory Results - last 24 hr 10/18/17 10/18/17 10/18/17 08:30 08:30 18:15 WBC 5.8 RBC 3.46 L Hgb 10.5 L Hct 32.8 L MCV 94.7 MCH 30.3 MCHC 32.0 RDW 19.1 H Plt Count 284 D MPV 7.1 Prelim Diff (Auto) Manual diff required WBC Differential Manual diff final Seg Neuts % (Manual) 63 Band Neuts % (Manual) 11 H Lymphocytes % (Manual) 9 Monocytes % (Manual) 11 H Eosinophils % (Manual) 1 Myelocytes % (Man) 5 H Abs Neuts (Manual) 4.6 Differential Comment . Platelet Estimate Normal Platelet Morphology Normal Tear Drop Cells 1+ H Sodium 142 Potassium 3.8 Chloride 100 Carbon Dioxide 36.0 H Anion Gap 6 BUN 20 H Creatinine 0.32 L Estimated GFR Greater than 89 POC Glucose 193 H Random Glucose 145 H Calcium 8.8 10/19/17 10/19/17 00:05 05:33 WBC RBC Hgb Hct MCV MCH MCHC RDW Plt Count MPV Prelim Diff (Auto) WBC Differential Seg Neuts % (Manual) Band Neuts % (Manual) Lymphocytes % (Manual) Monocytes % (Manual) Eosinophils % (Manual) Myelocytes % (Man) Abs Neuts (Manual) Differential Comment Platelet Estimate Platelet Morphology Tear Drop Cells Sodium Potassium Chloride Carbon Dioxide Anion Gap BUN Creatinine Estimated GFR POC Glucose 164 H 120 H Random Glucose Calcium - Procedures 08/23- intubation 09/03- bronchoscopy, lung biopsy, thoaracentesis 09/08- tracheostomy 09/11- PEG placement Assessment and Plan - Plan In summary this is a 77-year-old man with a medical history significant for hypertension, gout, diabetes who initially presented with pain in his groin and back. CT angiogram showed bilateral emphysema and pulmonary nodules with compressive atelectasis of right lower lobe. Patient underwent a biopsy which showed chronic inflammation, and reactive fibroblastic tissue. He was also found to have significant spinal stenosis and underwent a laminectomy by neurosurgery. The patient's hospital stay was complicated by septic shock secondary to hospital-acquired pneumonia and C. difficile. 10/19: Patient desat to 85%. Patient was lavaged and suctioned by respiratory, moderate amount of mucous removed in addition to a blue liquid. Patient was bagged to trach, saturated at 100%, then transitioned back to trach and patient saturated at 98% on 40%FI02. He was notably more comfortable. I discussed case with nurse and respiratory therapist. Desat likely due to mucous plug or from whatever he was given by mouth. (Noted to have passed his swallow eval). Patient to remain NPO. Will watch closely. Will make sure pulmonology is updated. Severe cervical spinal stenosis Status post C2 hemicolectomy, C3 through C5 laminoplasty with quadriplegia and acute spinal injury MRI C-spine 09/15: Focal severe spinal canal stenosis at C4-5. Moderate diffuse broad-based bulging at C3-4 with some mild increased signal in the spinal cord at this level. Moderate spinal canal stenosis at C6-C7 Bilateral facet arthritis at multiple levels. Head CT 08/23: 2 questionable tiny focal hemorrhages. MRI of brain 08/26 chronic small vessel ischemic and atrophic changes. EEG 09/03 revealed severe encephalopathy. No epileptiform activity Neurosurgery Dr. Victor consulted, Poor chance of neurological recovery for him, recent discussion with Dr. Smith and son, no further surgical intervention per son. Neurology Dr. Carvalho. Patient treated with steroids per neurology recommendations. Completed the course of treatment. Hypertension CAD A-Fib continue metoprolol & digoxin (was previously on amiodarone, was stopped due to bradycardia) BP is stable Acute on chronic respiratory failure secondary to COPD CT pulmonary angiogram revealed multiple masses. Lung mass biopsied on August 28 showed CHRONIC INFLAMMATORY AND REACTIVE FIBROBLASTIC TISSUE CONTAINING ENTRAPPED BENIGN EPITHELIUM. Second biopsy on hold due to risk of decompensation. Pulmonology has advised against doing a second biopsy given significant risk. Repeat CT scan in 4 weeks, if mass decrease in size more likely that this is infectious etiology malignancy. Pulmonology following: Continue Levaquin 500 mg daily 7 (10/15-10/21)days for left base infiltrate, trach lavage and suction as needed, continue to collar at 35% FiO2 and wean to keep sats greater than 92 Severe malnutrition Tolerating tube feeds Urinary retention Larson Diabetes Continue sliding scale Levemir on hold Sever Sepsis: resolved Trach Site infection: Resolved HCAP: resolved C. Diff colitis: resolved FEN DVT proph: SCDs & heparin GI: lansoprazole Discharge Planning: Prognosis is poor. Palliative care is following the patient and has discussed met with the patient's family. Discussion of hospice and comfort measures as been discussed with the family have met with hospice. declines at this time. Son also has declined hospice at this time.
[2017-10-19] MEDS: Metoprolol Tartrate 50 MG Tablet PO SCH ×2 (09:25→20:13)
[2017-10-19] MEDS: Insulin Detemir Inj 1,000 UNIT/10 ML Vial SQ SCH ×2 (09:25→23:03)
[2017-10-19] MEDS: LORazepam 1 MG Tablet G-TUBE PRN (13:10)
[2017-10-19] MEDS: Levofloxacin 500 mg Premix Inj 500 MG/100 ML PIGGYBACK IV.SIG SCH (21:00)
[2017-10-20] MEDS: Insulin NovoLOG Aspart Correctional Sugar Inj SQ SCH ×3 (01:08→17:39)
--- NOTE | 2017-10-20 09:44 | P.PNIM ---
Subjective Interval history: Patient seen and examined. Discussed with nursing. No acute changes. Patient continues nonverbal and noninteractive. Physical Exam Vital signs: Vital Signs 10/19/17 12:00 10/19/17 12:01 10/19/17 16:00 Temperature 97.8 F 99 F Pulse Rate 110 H 113 H 134 H Respiratory Rate 20 Blood Pressure 98/70 L 155/75 H Pulse Oximetry 10/19/17 18:56 10/19/17 19:00 10/19/17 20:00 Temperature 97.0 F L Pulse Rate 127 H 122 H Respiratory Rate 25 H 18 Blood Pressure 128/73 Pulse Oximetry 99 99 99 10/20/17 00:00 10/20/17 04:00 10/20/17 08:00 Temperature 98.2 F 97.9 F 98.4 F Pulse Rate 93 H 87 88 Respiratory Rate 18 16 20 Blood Pressure 98/63 L 124/81 134/68 Pulse Oximetry 98 10/20/17 08:55 Temperature Pulse Rate 107 H Respiratory Rate 18 Blood Pressure Pulse Oximetry 97 Intake & Output 10/19/17 10/20/17 10/20/17 18:59 06:59 18:59 Intake Total 1490 / 1490 2017 Output Total 2350 / 2350 1100 / 1100 Balance -860 / -860 918 / 918 Weight 64.5 kg Intake: IV 100 / 100 Levaquin 500 mg Premix Inj 500 100 / 100 mg In 100 ml @ 100 mls/hr IV. SIG Q24H [facility] [place] Rx#:[id number] Oral 120 / 120 0 / 0 Tube Feeding 610 / 610 874 / 874 Tube Irrigant 60 / 60 60 / 60 Water Bolus Amount 600 / 600 984 / 984 Anesthesia Amount 0 / 0 0 / 0 Other 100 / 100 Output: Urine 850 / 850 800 / 800 Stool 100 / 100 Urine/Stool Mix 100 / 100 Estimated Blood Loss 300 / 300 300 / 300 Urine Amount (Catheter) 1000 / 1000 Indwelling Urethral Catheter 1000 / 1000 Other: Other Intake Source Saline Solution Saline Solution Date of Last Bowel Movement 10/19/17 10/19/17 10/15/17 # Bowel Movements 3 # Incontinent Bowel Movements 3 Narrative: GENERAL: Lying in bed. Noninteractive. SKIN: Warm and dry. HEAD: Normocephalic. EYES: No scleral icterus. No injection or drainage. NECK: Supple, trachea midline. No JVD. CARDIOVASCULAR: Regular rate and rhythm without murmurs, gallops, or rubs. RESPIRATORY: Breath sounds equal bilaterally. No accessory muscle use. Tracheostomy in place without surrounding erythema. GASTROINTESTINAL: Abdomen soft, non-tender, nondistended. PEG tube in place without leakage or surrounding erythema MUSCULOSKELETAL: No cyanosis, or edema. BACK: Nontender without obvious deformity. No CVA tenderness. - Urinary Catheter Management Indwelling Urethral Catheter Cath placed during this visit: yes Urethral indwelling: Yes Reason for continuing: Hourly intake/output Insertion date: 08/20/17 Insertion time: 17:00 Results - Labs CBC & Chem 7: 10/18/17 08:30 10/18/17 08:30 Laboratory Results - last 24 hr 10/19/17 10/19/17 10/20/17 11:36 17:24 01:04 POC Glucose 175 H 96 128 H 10/20/17 06:24 POC Glucose 155 H - Procedures 08/23- intubation 09/03- bronchoscopy, lung biopsy, thoaracentesis 09/08- tracheostomy 09/11- PEG placement Assessment and Plan - Plan 10/20/17. Patient seen and examined. No acute changes. Patient's heart rate has been elevated up to the 120s, as of yesterday. Will increase metoprolol. In summary this is a 77-year-old man with a medical history significant for hypertension, gout, diabetes who initially presented with pain in his groin and back. CT angiogram showed bilateral emphysema and pulmonary nodules with compressive atelectasis of right lower lobe. Patient underwent a biopsy which showed chronic inflammation, and reactive fibroblastic tissue. He was also found to have significant spinal stenosis and underwent a laminectomy by neurosurgery. The patient's hospital stay was complicated by septic shock secondary to hospital-acquired pneumonia and C. difficile. 10/19: Patient desat to 85%. Patient was lavaged and suctioned by respiratory, moderate amount of mucous removed in addition to a blue liquid. Patient was bagged to trach, saturated at 100%, then transitioned back to trach and patient saturated at 98% on 40%FI02. He was notably more comfortable. I discussed case with nurse and respiratory therapist. Desat likely due to mucous plug or from whatever he was given by mouth. (Noted to have passed his swallow eval). Patient to remain NPO. Will watch closely. Will make sure pulmonology is updated. //Severe cervical spinal stenosis Status post C2 hemicolectomy, C3 through C5 laminoplasty with quadriplegia and acute spinal injury MRI C-spine 09/15: Focal severe spinal canal stenosis at C4-5. Moderate diffuse broad-based bulging at C3-4 with some mild increased signal in the spinal cord at this level. Moderate spinal canal stenosis at C6-C7 Bilateral facet arthritis at multiple levels. Head CT 08/23: 2 questionable tiny focal hemorrhages. MRI of brain 08/26 chronic small vessel ischemic and atrophic changes. EEG 09/03 revealed severe encephalopathy. No epileptiform activity Neurosurgery Dr. Victor consulted, Poor chance of neurological recovery for him, recent discussion with Dr. Smith and son, no further surgical intervention per son. Neurology Dr. Carvalho. Patient treated with steroids per neurology recommendations. Completed the course of treatment. = No changes. Continue to monitor. //Hypertension //CAD //A-Fib continue metoprolol & digoxin (was previously on amiodarone, was stopped due to bradycardia) BP is stable = 10/20. Patient still with heart rate excursions up to the 120s, most recently yesterday. Patient's last dose of digoxin was over a month ago. Will discontinue. Increase metoprolol dose. Acute on chronic respiratory failure secondary to COPD CT pulmonary angiogram revealed multiple masses. Lung mass biopsied on August 28 showed CHRONIC INFLAMMATORY AND REACTIVE FIBROBLASTIC TISSUE CONTAINING ENTRAPPED BENIGN EPITHELIUM. Second biopsy on hold due to risk of decompensation. Pulmonology has advised against doing a second biopsy given significant risk. Repeat CT scan in 4 weeks, if mass decrease in size more likely that this is infectious etiology malignancy. Pulmonology following: Continue Levaquin 500 mg daily 7 (10/15-10/21)days for left base infiltrate, trach lavage and suction as needed, continue to collar at 35% FiO2 and wean to keep sats greater than 92 //Severe malnutrition Tolerating tube feeds //Urinary retention Larson //Diabetes Continue sliding scale Levemir on hold //Sever Sepsis: resolved //Trach Site infection: Resolved //HCAP: resolved //C. Diff colitis: resolved //FEN //DVT proph: SCDs & heparin GI: lansoprazole Discharge Planning: Prognosis is poor. Palliative care is following the patient and has discussed met with the patient's family. Discussion of hospice and comfort measures as been discussed with the family have met with hospice. declines at this time. Son also has declined hospice at this time.
[2017-10-20] MEDS: Insulin Detemir Inj 1,000 UNIT/10 ML Vial SQ SCH ×2 (10:07→22:48)
[2017-10-20] MEDS: Metoprolol Tartrate 50 MG Tablet PO SCH ×2 (13:00→21:00)
--- NOTE | 2017-10-20 15:56 | P.DIET ---
Nutritional Evaluation Type of nutrition evaluation: follow-up Nutrition consult regarding: Tube Feeding Nutrition screening: Pressure Injury Subjective Subjective Comments: Pt speaks only Mandarin. Objective - Diagnosis Pulmonary Mass, Pulmonary Infiltrates - Objective % IBW: 132 (IBW = 118#) Body Weight Used for Calculations: Upper end of IBW (59 kg) Energy Needs - Lower Range (kCal/kg): 30 Energy Needs - Upper Range (kCal/kg): 35 Lower Limit kCal/kg (kCals): 1,770 Upper Limit kCal/kg (kCals): 2,065 Lower Limit Protein Factor (Grams per Kg): 1.2 Upper Limit Protein Factor (Grams per Kg): 1.5 Lower Protein Needs (Protein): 71 Upper Protein Needs (Protein): 89 Dietitian Reviewed in Medical Record: Curent medications, Intake & Output, Labs , Medical history, Tube feeding, Wound/DTI Diet Order: TFing only Speech Therapy Recommendations: Yes (Strict NPO) Objective Comments: Hx includes HTN, DM, Gout, TB (10 years ago) 09/11 PEG placed 09/19 C3-5 laminoplasty Feeding - Current Tube Feeding Tube Feeding Product: Glucerna 1.5 Tube Feeding Method: Pump Tube Feeding Rate: 55 (mls/hr) Current kCals Provided by Tube Feedin,980 Current Protein Provided by Tube Feeding (gPRO): 109 Current Free H2O Provided (m/l): 1,002 Assessment Assessment: No acute changes. Continues to tolerate TF of Glucerna 1.5 @ 55 mls/hr and this adequately meets estimated needs. Pts. wt. remains stable, +UOP and +BM. Newest Nurse's Wound/Pressure Injury Assessment indicates an open are on the Right and Left buttock. Pt is functionally quadriparetic. Continue current POC and TFing at current goal rate. Continue to monitor TFing tolerance, labs and skin. Recommendations: 1. Continue current POC and TFing at current goal rate. 2. Continue to monitor TFing tolerance, labs and skin. Dietitian to Monitor: Lab values, Intake & Output, Tube feeding tolerance, Weight change, Wound/skin status, Medical course
[2017-10-20] MEDS: Levofloxacin 500 mg Premix Inj 500 MG/100 ML PIGGYBACK IV.SIG SCH (20:48)
[2017-10-21] MEDS: LORazepam 1 MG Tablet G-TUBE PRN ×2 (00:08→08:57)
[2017-10-21] MEDS: Insulin NovoLOG Aspart Correctional Sugar Inj SQ SCH ×2 (06:00)
[2017-10-21] MEDS: Insulin Detemir Inj 1,000 UNIT/10 ML Vial SQ SCH ×2 (08:57→21:00)
[2017-10-21] MEDS: Metoprolol Tartrate 50 MG Tablet PO SCH ×2 (08:58→21:00)
--- NOTE | 2017-10-21 09:32 | P.PNIM ---
Subjective Interval history: NO NEW ISSUES IS NONVERBAL AND NONINTERACTIVE Physical Exam Vital signs: Vital Signs 10/20/17 12:00 10/20/17 16:00 10/20/17 20:00 Temperature 98.6 F 98.6 F 97.6 F Pulse Rate 76 98 H 98 H Respiratory Rate 20 16 18 Blood Pressure 103/68 103/60 92/51 L Pulse Oximetry 98 100 100 10/20/17 20:21 10/21/17 00:00 10/21/17 04:00 Temperature 97.4 F L 97.4 F L Pulse Rate 70 100 H 100 H Respiratory Rate 18 22 Blood Pressure 127/79 134/82 Pulse Oximetry 98 98 89 L Intake & Output 10/20/17 10/21/17 10/21/17 18:59 06:59 18:59 Intake Total 930 / 930 720 / 720 Output Total 600 / 600 450 / 450 Balance 330 / 330 270 / 270 Weight 62 kg Intake: Oral 0 / 0 0 / 0 Tube Feeding 480 / 480 420 / 420 Water Bolus Amount 450 / 450 300 / 300 Anesthesia Amount 0 / 0 Output: Urine Amount (Catheter) 600 / 600 450 / 450 Indwelling Urethral Catheter 600 / 600 450 / 450 Other: Date of Last Bowel Movement 10/19/17 10/15/17 10/15/17 # Bowel Movements 1 # Incontinent Bowel Movements 1 Narrative: GENERAL: Lying in bed. INTERACTIVE SKIN: Warm and dry. HEAD: Normocephalic. EYES: No scleral icterus. No injection or drainage. NECK: Supple, trachea midline. No JVD. TRACH CARDIOVASCULAR: Regular rate and rhythm without murmurs, gallops, or rubs. RESPIRATORY: Breath sounds equal bilaterally. No accessory muscle use. Tracheostomy in place without surrounding erythema. GASTROINTESTINAL: Abdomen soft, non-tender, nondistended. PEG tube in place without leakage or surrounding erythema MUSCULOSKELETAL: No cyanosis, or edema. BACK: Nontender without obvious deformity. No CVA tenderness. HAVE NOT SEEN RIGHT LE BEING MOVED MOVES BL UE AND LEFT LE - Urinary Catheter Management Indwelling Urethral Catheter Cath placed during this visit: yes Urethral indwelling: Yes Reason for continuing: Hourly intake/output Insertion date: 08/20/17 Insertion time: 17:00 Results - Labs CBC & Chem 7: 10/18/17 08:30 10/18/17 08:30 Laboratory Results - last 24 hr 10/20/17 10/20/17 10/21/17 13:06 18:23 00:35 POC Glucose 124 H 111 H 93 10/21/17 06:45 POC Glucose 134 H - Procedures 08/23- intubation 09/03- bronchoscopy, lung biopsy, thoaracentesis 09/08- tracheostomy 09/11- PEG placement Assessment and Plan - Plan 10/20/17. Patient seen and examined. No acute changes. Patient's heart rate has been elevated up to the 120s, as of yesterday. Will increase metoprolol. 8-7 SEEN EXAMINED In summary this is a 77-year-old man with a medical history significant for hypertension, gout, diabetes who initially presented with pain in his groin and back. CT angiogram showed bilateral emphysema and pulmonary nodules with compressive atelectasis of right lower lobe. Patient underwent a biopsy which showed chronic inflammation, and reactive fibroblastic tissue. He was also found to have significant spinal stenosis and underwent a laminectomy by neurosurgery. The patient's hospital stay was complicated by septic shock secondary to hospital-acquired pneumonia and C. difficile. 10/19: Patient desat to 85%. Patient was lavaged and suctioned by respiratory, moderate amount of mucous removed in addition to a blue liquid. Patient was bagged to trach, saturated at 100%, then transitioned back to trach and patient saturated at 98% on 40%FI02. He was notably more comfortable. I discussed case with nurse and respiratory therapist. Desat likely due to mucous plug or from whatever he was given by mouth. (Noted to have passed his swallow eval). Patient to remain NPO. Will watch closely. Will make sure pulmonology is updated. Severe cervical spinal stenosis Status post C2 hemicolectomy, C3 through C5 laminoplasty with quadriplegia and acute spinal injury MRI C-spine 09/15: Focal severe spinal canal stenosis at C4-5. Moderate diffuse broad-based bulging at C3-4 with some mild increased signal in the spinal cord at this level. Moderate spinal canal stenosis at C6-C7 Bilateral facet arthritis at multiple levels. Head CT 08/23: 2 questionable tiny focal hemorrhages. MRI of brain 08/26 chronic small vessel ischemic and atrophic changes. EEG 09/03 revealed severe encephalopathy. No epileptiform activity Neurosurgery Dr. Victor consulted, Poor chance of neurological recovery for him, recent discussion with Dr. Smith and son, no further surgical intervention per son. Neurology Dr. Carvalho. Patient treated with steroids per neurology recommendations. Completed the course of treatment. = No changes. Continue to monitor. Hypertension-MEDS ADJUSTED CAD A-Fib continue metoprolol & digoxin (was previously on amiodarone, was stopped due to bradycardia) BP is stable = 8/6. Patient still with heart rate excursions up to the 120s, most recently yesterday. Patient's last dose of digoxin was over a month ago. Will discontinue. Increase metoprolol dose. Acute on chronic respiratory failure secondary to COPD CT pulmonary angiogram revealed multiple masses. Lung mass biopsied on August 28 showed CHRONIC INFLAMMATORY AND REACTIVE FIBROBLASTIC TISSUE CONTAINING ENTRAPPED BENIGN EPITHELIUM. Second biopsy on hold due to risk of decompensation. Pulmonology has advised against doing a second biopsy given significant risk. Repeat CT scan in 4 weeks, if mass decrease in size more likely that this is infectious etiology malignancy. Pulmonology following: Continue Levaquin 500 mg daily 7 (10/15-10/21)days for left base infiltrate, trach lavage and suction as needed, continue to collar at 35% FiO2 and wean to keep sats greater than 92 Severe malnutrition Tolerating tube feeds ALSO BEING FED A DIET Urinary retention Larson Diabetes Continue sliding scale Levemir on hold Severe Sepsis: resolved Trach Site infection: Resolved HCAP: resolved C. 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 Palliative care is following the patient and has discussed met with the patient's family. Discussion of hospice and comfort measures as been discussed with the family have met with hospice. declines at this time. Son also has declined hospice at this time.
[2017-10-22] MEDS: LORazepam 1 MG Tablet G-TUBE PRN (00:27)
[2017-10-22] MEDS: Insulin NovoLOG Aspart Correctional Sugar Inj SQ SCH ×5 (07:08→12:00)
[2017-10-22 08:17] LABS: Bilirubin,Urine Negative (Negative); Clarity,Urine Cloudy (Clear); Color,Urine Yellow (Yellw/Straw); Glucose,Urine (UA) Negative (Negative); Leukocyte Esterase,Urine Large (Negative); Mucus,Urine Few /lpf (Occasional); Nitrite,Urine Negative (Negative); Specific Gravity,Urine 1.012 (1.002-1.035); Squamous Epithelial Cell,Urine 2 /hpf (0-5)
[2017-10-22 08:19] LABS: Bacteria,Urine Many /hpf
[2017-10-22] MEDS: Metoprolol Tartrate 50 MG Tablet PO SCH ×2 (09:32→22:10)
[2017-10-22] MEDS: Insulin Detemir Inj 1,000 UNIT/10 ML Vial SQ SCH ×2 (09:32→22:11)
--- NOTE | 2017-10-22 09:45 | P.PN ---
Subjective Interval history: 77-year-old male, trach collar in place, he is not interactive, but appears to be resting comfortably. No issues reported. Physical Exam Vital signs: Vital Signs 10/21/17 10:24 10/21/17 12:00 10/21/17 16:00 Temperature 99 F 98.8 F Pulse Rate 109 H 92 H Respiratory Rate 24 Blood Pressure 126/80 Pulse Oximetry 93 L 96 10/21/17 20:00 10/21/17 20:06 10/22/17 00:00 Temperature 97.9 F 97.7 F Pulse Rate 107 H 104 H 96 H Respiratory Rate 18 Blood Pressure 140/96 H 137/84 Pulse Oximetry 94 L 95 95 10/22/17 04:00 10/22/17 07:00 10/22/17 08:11 Temperature 97 F L Pulse Rate 115 H 93 H Respiratory Rate 16 Blood Pressure 103/57 L Pulse Oximetry 98 95 98 Intake & Output 10/21/17 10/22/17 10/22/17 18:59 06:59 18:59 Intake Total 880 / 880 960 / 960 Output Total 1350 / 1350 1400 / 1400 Balance -470 / -470 -440 / -440 Weight 62.2 kg Intake: Oral 0 / 0 0 / 0 Tube Feeding 420 / 420 540 / 540 Tube Irrigant 60 / 60 120 / 120 Water Bolus Amount 300 / 300 300 / 300 Anesthesia Amount 0 / 0 Other 100 / 100 Output: Urine 850 / 850 700 / 700 Stool 100 / 100 Urine/Stool Mix 100 / 100 Estimated Blood Loss 300 / 300 Urine Amount (Catheter) 0 / 0 700 / 700 Indwelling Urethral Catheter 0 / 0 700 / 700 Other: Other Intake Source Saline Solution Date of Last Bowel Movement 10/15/17 10/15/17 # Bowel Movements 1 # Incontinent Bowel Movements 1 Narrative: GENERAL: Lying in bed. Sleeping. SKIN: Warm and dry. HEAD: Normocephalic. Atraumatic. EYES: No scleral icterus. No injection or drainage. NECK: Supple, trachea midline. No JVD. Tracheostomy in place. CARDIOVASCULAR: Regular rate and rhythm without murmurs, gallops, or rubs. RESPIRATORY: Breath sounds equal bilaterally. Scattered congestive sounds. No accessory muscle use. GASTROINTESTINAL: Abdomen soft, non-tender, nondistended. PEG tube in place without leakage or surrounding erythema MUSCULOSKELETAL: No cyanosis, or edema. BACK: Nontender without obvious deformity. No CVA tenderness. - Urinary Catheter Management Indwelling Urethral Catheter Cath placed during this visit: yes Urethral indwelling: Yes Reason for continuing: Acute urinary retention Insertion date: 08/20/17 Insertion time: 17:00 Results - Labs CBC & Chem 7: 10/18/17 08:30 10/18/17 08:30 Laboratory Results - last 24 hr 10/21/17 10/22/17 10/22/17 11:54 00:18 06:20 POC Glucose 130 H 133 H Urine Color Yellow Urine Clarity Cloudy H Urine pH 8.0 Ur Specific [place] 1.012 Urine Protein Negative Urine Glucose (UA) Negative Urine Ketones Negative Urine Occult Blood Moderate H Urine Nitrate Negative Urine Bilirubin Negative Urine Urobilinogen 2.0 H Ur Leukocyte Esterase Large H Urine RBC 42 H Urine WBC Urine WBC Clumps Moderate H Ur Squamous Epith Cells 2 Urine Bacteria Many H Urine Mucus Few H Micro UA Comment Cath-culture ind Urine Culture Comments Cath-cult indicated - Procedures 08/23- intubation 09/03- bronchoscopy, lung biopsy, thoaracentesis 09/08- tracheostomy 09/11- PEG placement Assessment and Plan - Plan 10/22/17 = patient is stable today, no complaints, no events. Continue current plan. In summary this is a 77-year-old man with a medical history significant for hypertension, gout, diabetes who initially presented with pain in his groin and back. CT angiogram showed bilateral emphysema and pulmonary nodules with compressive atelectasis of right lower lobe. Patient underwent a biopsy which showed chronic inflammation, and reactive fibroblastic tissue. He was also found to have significant spinal stenosis and underwent a laminectomy by neurosurgery. The patient's hospital stay was complicated by septic shock secondary to hospital-acquired pneumonia and C. difficile. Severe cervical spinal stenosis s/p C2 hemicolectomy, C3 through C5 laminoplasty with quadriplegia and acute spinal injury MRI C-spine 09/15: Focal severe spinal canal stenosis at C4-5. And otherwise moderate changes on other levels Head CT 08/23: 2 questionable tiny focal hemorrhages. MRI of brain 08/26 chronic small vessel ischemic and atrophic changes. EEG 09/03 revealed severe encephalopathy. No epileptiform activity Neurosurgery Dr. Victor consulted, Poor chance of neurological recovery for him, no further surgical intervention per son. Neurology Dr. Carvalho. Patient treated with steroids per neurology recommendations, course completed. Hypertension, CAD, A. fib Blood pressure remains stable Amiodarone previously stopped due to bradycardia Continue metoprolol and digoxin Acute on chronic respiratory failure secondary to COPD CT pulmonary angiogram revealed multiple masses. 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 Pulmonology has advised against doing a second biopsy given risk. Repeat CT scan recommended in 4 weeks, if mass decrease in size more likely that this is infectious etiology malignancy. Continue trach lavage and suction as needed, continue 35% FiO2 to collar Course of Levaquin completed on 10/21/2017 Appreciate pulmonology following Severe malnutrition Tolerating tube feeds Continue to increase p.o. diet as tolerated Urinary retention Larson in place per urology Type 2 diabetes Accu-Cheks with sliding scale insulin coverage Diabetic diet Sepsis, trach infection, hospital-acquired pneumonia, C. difficile colitis All resolved DVT Prophylaxis Heparin Discharge planning Prognosis is poor. Palliative care is following the patient and has discussed met with the patient's family. Both and son have declined hospice at this time.
--- NOTE | 2017-10-22 16:44 | P.PN ---
Subjective Interval history: Pulls at Trach and Larson and G tubes. Alert and has some arm weakness. Trach site is clean. Physical Exam Vital signs: Vital Signs 10/21/17 20:00 10/21/17 20:06 10/22/17 00:00 Temperature 97.9 F 97.7 F Pulse Rate 107 H 104 H 96 H Respiratory Rate 18 Blood Pressure 140/96 H 137/84 Pulse Oximetry 94 L 95 95 10/22/17 04:00 10/22/17 07:00 10/22/17 08:00 Temperature 97 F L 98.6 F Pulse Rate 115 H 113 H Respiratory Rate Blood Pressure 103/57 L 140/78 Pulse Oximetry 98 95 100 10/22/17 08:11 10/22/17 12:00 Temperature 96.8 F L Pulse Rate 93 H 98 H Respiratory Rate 16 20 Blood Pressure 124/78 Pulse Oximetry 98 98 Intake & Output 10/21/17 10/22/17 10/22/17 18:59 06:59 18:59 Intake Total 880 / 880 960 / 960 Output Total 1350 / 1350 1400 / 1400 Balance -470 / -470 -440 / -440 Weight 62.2 kg Intake: Oral 0 / 0 0 / 0 Tube Feeding 420 / 420 540 / 540 Tube Irrigant 60 / 60 120 / 120 Water Bolus Amount 300 / 300 300 / 300 Anesthesia Amount 0 / 0 Other 100 / 100 Output: Urine 850 / 850 700 / 700 Stool 100 / 100 Urine/Stool Mix 100 / 100 Estimated Blood Loss 300 / 300 Urine Amount (Catheter) 0 / 0 700 / 700 Indwelling Urethral Catheter 0 / 0 700 / 700 Other: Other Intake Source Saline Solution Date of Last Bowel Movement 10/15/17 10/15/17 10/15/17 # Bowel Movements 1 # Incontinent Bowel Movements 1 Narrative: GENERAL: Awake and responds and in No distress SKIN: Warm and dry. HEAD: Normocephalic. Atraumatic. EYES: No scleral icterus. No injection or drainage. NECK: Supple, trachea midline. No JVD. Tracheostomy in place. CARDIOVASCULAR: Regular rate and rhythm without murmurs, gallops, or rubs. RESPIRATORY: Breath sounds equal bilaterally. Scattered wheeze. No accessory muscle use. GASTROINTESTINAL: Abdomen soft, non-tender, nondistended. PEG tube in place without leakage or surrounding erythema MUSCULOSKELETAL: No cyanosis, or edema. Neuro : Weak on right . BACK: Nontender without obvious deformity. No CVA tenderness. - Urinary Catheter Management Indwelling Urethral Catheter Cath placed during this visit: yes Urethral indwelling: Yes Reason for continuing: Acute urinary retention Insertion date: 08/20/17 Insertion time: 17:00 Results - Labs CBC & Chem 7: 10/18/17 08:30 10/18/17 08:30 Laboratory Results - last 24 hr 10/22/17 10/22/17 10/22/17 00:18 06:20 13:16 POC Glucose 133 H 195 H Urine Color Yellow Urine Clarity Cloudy H Urine pH 8.0 Ur Specific [place] 1.012 Urine Protein Negative Urine Glucose (UA) Negative Urine Ketones Negative Urine Occult Blood Moderate H Urine Nitrate Negative Urine Bilirubin Negative Urine Urobilinogen 2.0 H Ur Leukocyte Esterase Large H Urine RBC 42 H Urine WBC Urine WBC Clumps Moderate H Ur Squamous Epith Cells 2 Urine Bacteria Many H Urine Mucus Few H Micro UA Comment Cath-culture ind Urine Culture Comments Cath-cult indicated - Procedures 08/23- intubation 09/03- bronchoscopy, lung biopsy, thoaracentesis 09/08- tracheostomy 09/11- PEG placement Assessment and Plan - Assessment (1) Cervical myelopathy Code(s): G95.9 - Disease of spinal cord, unspecified Status: Acute (2) Respiratory failure Code(s): J96.90 - Respiratory failure, unspecified, unspecified whether with hypoxia or hypercapnia Status: Acute (3) SVT (supraventricular tachycardia) Code(s): I47.1 - Supraventricular tachycardia Status: Acute (4) Lung mass Code(s): R91.8 - Other nonspecific abnormal finding of lung field Status: Acute (5) Diabetes Code(s): E11.9 - Type 2 diabetes mellitus without complications Status: Acute (6) Gout Code(s): M10.9 - Gout, unspecified Status: Acute (7) Spinal stenosis Code(s): M48.00 - Spinal stenosis, site unspecified Status: Acute (8) Dyspnea Code(s): R06.00 - Dyspnea, unspecified Status: Acute - Plan 1. Cont T Bar at 30 % FIO2 and wean to keep sat >92 . 2. Trach lavage and suction PRN 3. Cont Duoneb nebs qid. 4. CBC,BMP 5. Tube feeds at 60CC 6. PT evaluation.
--- NOTE | 2017-10-22 18:16 | XR ---
EXAM DATE: 10/22/2017 5:57 PM EDT AGE/SEX: 77 years / Male INDICATIONS: Pneumonia. CLINICAL DATA: This is the patient's subsequent encounter. Patient reports that signs and symptoms h ave been present for 3 weeks and indicates a pain score of Nonresponsive. MEDICAL/SURGICAL HISTORY: . Hypertension. Diabetes mellitus type II. Emphysema. A-fib . . trac heostomy COMPARISON: [facility] – [place], CHEST 1V SINGLE AP, 10/16/2017. . FINDINGS: Patchy parenchymal opacities again seen of both lungs, left more so than right and in a somewhat uppe r lobe predominant distribution. A small pleural effusion is suspected on the left. These findings do n't appear significantly changed. No pneumothorax. Heart size stable, within normal limits. Tortuous and atherosclerotic aorta again seen. There is trac heostomy present. CONCLUSION: Left greater than right parenchymal opacities persist, not significantly changed. Probably a very sma ll left pleural effusion. Electronically signed by: Ino Jackson MD 10/22/2017 6:15 PM EDT
[2017-10-23] MEDS: Metoprolol Tartrate 50 MG Tablet PO SCH ×3 (01:01→22:22)
[2017-10-23] MEDS: LORazepam 1 MG Tablet G-TUBE PRN ×2 (06:28→20:59)
[2017-10-23] MEDS: Insulin Detemir Inj 1,000 UNIT/10 ML Vial SQ SCH ×2 (08:52→20:59)
--- NOTE | 2017-10-23 10:30 | P.PNIM ---
Subjective Interval history: Has trach collar in place Appears to be resting comfortably No new complaints per RNs nurses Physical Exam Vital signs: Vital Signs 10/22/17 12:00 10/22/17 16:00 10/22/17 19:07 Temperature 96.8 F L 98.6 F Pulse Rate 98 H 100 H Respiratory Rate 20 20 Blood Pressure 124/78 99/68 L Pulse Oximetry 98 95 10/22/17 19:08 10/22/17 20:00 10/23/17 00:00 Temperature 97.7 F 97.6 F Pulse Rate 89 93 H 96 H Respiratory Rate 18 18 18 Blood Pressure 90/55 L 94/59 L Pulse Oximetry 94 L 94 L 10/23/17 04:00 10/23/17 08:00 10/23/17 08:06 Temperature 97.8 F 97.8 F Pulse Rate 94 H 94 H 120 H Respiratory Rate 20 18 20 Blood Pressure 112/64 110/60 Pulse Oximetry 90 L 95 93 L Intake & Output 10/22/17 10/23/17 10/23/17 18:59 06:59 18:59 Intake Total 1204 / 1204 Output Total 650 / 650 Balance 554 / 554 Weight 62.8 kg Intake: Oral 0 / 0 Tube Feeding 604 / 604 Water Bolus Amount 600 / 600 Output: Urine Amount (Catheter) 650 / 650 Indwelling Urethral Catheter 650 / 650 Other: Date of Last Bowel Movement 10/15/17 10/22/17 10/22/17 # Bowel Movements 1 Narrative: GENERAL: Awake and responds and in No distress SKIN: Warm and dry. HEAD: Normocephalic. Atraumatic. EYES: No scleral icterus. No injection or drainage. NECK: Supple, trachea midline. No JVD. Tracheostomy in place. CARDIOVASCULAR: Regular rate and rhythm without murmurs, gallops, or rubs. RESPIRATORY: Breath sounds equal bilaterally. Scattered wheeze. No accessory muscle use. GASTROINTESTINAL: Abdomen soft, non-tender, nondistended. PEG tube in place without leakage or surrounding erythema MUSCULOSKELETAL: No cyanosis, or edema. Neuro : Weak on right . BACK: Nontender without obvious deformity. No CVA tenderness. - Urinary Catheter Management Indwelling Urethral Catheter Cath placed during this visit: yes Urethral indwelling: Yes Reason for continuing: Acute urinary retention Insertion date: 08/20/17 Insertion time: 17:00 Results - Labs CBC & Chem 7: 10/18/17 08:30 10/18/17 08:30 Laboratory Results - last 24 hr 10/22/17 10/22/17 10/22/17 13:16 18:01 20:39 POC Glucose 195 H 156 H 154 H 10/22/17 23:47 POC Glucose 183 H - Imaging Impressions Chest X-Ray 10/22/17 00:00 CONCLUSION: Left greater than right parenchymal opacities persist, not significantly changed. Probably a very small left pleural effusion. - Procedures 08/23- intubation 09/03- bronchoscopy, lung biopsy, thoracentesis 09/08- tracheostomy 09/11- PEG placement Assessment and Plan - Plan 10/20/17. Patient seen and examined. No acute changes. Patient's heart rate has been elevated up to the 120s, as of yesterday. Will increase metoprolol. 8-7 SEEN EXAMINED In summary this is a 77-year-old man with a medical history significant for hypertension, gout, diabetes who initially presented with pain in his groin and back. CT angiogram showed bilateral emphysema and pulmonary nodules with compressive atelectasis of right lower lobe. Patient underwent a biopsy which showed chronic inflammation, and reactive fibroblastic tissue. He was also found to have significant spinal stenosis and underwent a laminectomy by neurosurgery. The patient's hospital stay was complicated by septic shock secondary to hospital-acquired pneumonia and C. difficile. 10/19: Patient desat to 85%. Patient was lavaged and suctioned by respiratory, moderate amount of mucous removed in addition to a blue liquid. Patient was bagged to trach, saturated at 100%, then transitioned back to trach and patient saturated at 98% on 40%FI02. He was notably more comfortable. I discussed case with nurse and respiratory therapist. Desat likely due to mucous plug or from whatever he was given by mouth. (Noted to have passed his swallow eval). Patient to remain NPO. Will watch closely. Will make sure pulmonology is updated. Severe cervical spinal stenosis Status post C2 hemicolectomy, C3 through C5 laminoplasty with quadriplegia and acute spinal injury MRI C-spine 09/15: Focal severe spinal canal stenosis at C4-5. Moderate diffuse broad-based bulging at C3-4 with some mild increased signal in the spinal cord at this level. Moderate spinal canal stenosis at C6-C7 Bilateral facet arthritis at multiple levels. Head CT 08/23: 2 questionable tiny focal hemorrhages. MRI of brain 08/26 chronic small vessel ischemic and atrophic changes. EEG 09/03 revealed severe encephalopathy. No epileptiform activity Neurosurgery Dr. Victor consulted, Poor chance of neurological recovery for him, recent discussion with Dr. Smith and son, no further surgical intervention per son. Neurology Dr. Carvalho. Patient treated with steroids per neurology recommendations. Completed the course of treatment. = No changes. Continue to monitor. Hypertension-MEDS ADJUSTED CAD A-Fib continue metoprolol & digoxin (was previously on amiodarone, was stopped due to bradycardia) BP is stable = 10/20. Patient still with heart rate excursions up to the 120s, most recently yesterday. Patient's last dose of digoxin was over a month ago. Will discontinue. Increase metoprolol dose. Acute on chronic respiratory failure secondary to COPD CT pulmonary angiogram revealed multiple masses. Lung mass biopsied on August 28 showed CHRONIC INFLAMMATORY AND REACTIVE FIBROBLASTIC TISSUE CONTAINING ENTRAPPED BENIGN EPITHELIUM. Second biopsy on hold due to risk of decompensation. Pulmonology has advised against doing a second biopsy given significant risk. Repeat CT scan in 4 weeks, if mass decrease in size more likely that this is infectious etiology malignancy. Pulmonology following: Continue Levaquin 500 mg daily 7 (10/15-10/21)days for left base infiltrate, trach lavage and suction as needed, continue to collar at 35% FiO2 and wean to keep sats greater than 92 Severe malnutrition Tolerating tube feeds ALSO BEING FED A DIET Urinary retention Larson Diabetes Continue sliding scale Levemir on hold Severe Sepsis: resolved Trach Site infection: Resolved HCAP: resolved C. Diff colitis: resolved FEN DVT proph: SCDs & heparin GI: lansoprazole Code Status: Can have intubation only Discharge Planning: Prognosis is poor. Palliative care is following the patient and has discussed met with the patient's family. Discussion of hospice and comfort measures as been discussed with the family have met with hospice. declines at this time. Son also has declined hospice at this time.
[2017-10-23] MEDS: Insulin NovoLOG Aspart Correctional Sugar Inj SQ SCH ×3 (12:31→18:31)
[2017-10-24] MEDS: Insulin NovoLOG Aspart Correctional Sugar Inj SQ SCH ×6 (03:19→23:41)
[2017-10-24] MEDS: Metoprolol Tartrate 50 MG Tablet PO SCH ×2 (11:59→21:52)
[2017-10-24] MEDS: Insulin Detemir Inj 1,000 UNIT/10 ML Vial SQ SCH ×2 (11:59→21:54)
[2017-10-24] MEDS: LORazepam 1 MG Tablet G-TUBE PRN ×2 (12:30→21:52)
--- NOTE | 2017-10-24 15:06 | P.PN ---
Subjective Interval history: Seen in her bedroom discussed with nurse, unable to get communication with patient. Physical Exam Vital signs: Vital Signs 10/23/17 16:00 10/23/17 17:55 10/23/17 19:03 Temperature 98.2 F Pulse Rate 92 H 95 H Respiratory Rate 18 20 Blood Pressure 132/72 Pulse Oximetry 95 95 10/23/17 19:04 10/23/17 20:00 10/24/17 00:00 Temperature 98.4 F 97.4 F L Pulse Rate 92 H 98 H Respiratory Rate 16 18 Blood Pressure 107/63 142/88 H Pulse Oximetry 97 99 99 10/24/17 04:00 10/24/17 07:50 10/24/17 09:34 Temperature 98.4 F 98.6 F Pulse Rate 98 H 92 H 111 H Respiratory Rate 17 18 18 Blood Pressure 140/89 145/82 H Pulse Oximetry 93 L 93 L 95 10/24/17 12:00 Temperature 97.8 F Pulse Rate 92 H Respiratory Rate 18 Blood Pressure 112/79 Pulse Oximetry 94 L Intake & Output 10/23/17 10/24/17 10/24/17 18:59 06:59 18:59 Intake Total 1424 / 1424 960 / 960 Output Total 1850 / 1850 1650 / 1650 Balance -426 / -426 -690 / -690 Weight 62.8 kg Intake: Oral 0 / 0 Tube Feeding 604 / 604 600 / 600 Tube Irrigant 120 / 120 60 / 60 Water Bolus Amount 600 / 600 300 / 300 Anesthesia Amount 0 / 0 Other 100 / 100 Output: Urine 700 / 700 1650 / 1650 Stool 100 / 100 Urine/Stool Mix 100 / 100 Estimated Blood Loss 300 / 300 Urine Amount (Catheter) 650 / 650 Indwelling Urethral Catheter 650 / 650 Other: Other Intake Source Saline Solution Date of Last Bowel Movement 10/22/17 10/23/17 10/23/17 # Bowel Movements 1 # Incontinent Bowel Movements 1 1 Narrative: GENERAL: No acute distress, Cervical collar in place. CARDIOVASCULAR: Regular rate and rhythm, no murmurs. RESPIRATORY: Diminished breath sounds bilaterally. GASTROINTESTINAL: Abdomen soft, non-tender MUSCULOSKELETAL: Extremities without cyanosis, or edema. NEURO: Awake and alert. Does not follow commands. - Urinary Catheter Management Indwelling Urethral Catheter Cath placed during this visit: yes Urethral indwelling: Yes Reason for continuing: Acute urinary retention Insertion date: 08/20/17 Insertion time: 17:00 Results - Labs CBC & Chem 7: 10/18/17 08:30 10/18/17 08:30 Laboratory Results - last 24 hr 10/23/17 10/23/17 10/24/17 18:03 18:18 01:35 POC Glucose 47 L* 155 H 160 H 10/24/17 10/24/17 04:58 13:30 POC Glucose 175 H 135 H Microbiology 10/22/17 06:20 Catheterized Urine Urine Culture - Preliminary Escherichia coli Yeast species - Procedures 08/23- intubation 09/03- bronchoscopy, lung biopsy, thoracentesis 09/08- tracheostomy 09/11- PEG placement Assessment and Plan - Plan 10/22/17 = patient is stable today, no complaints, no events. Continue current plan. In summary this is a 77-year-old man with a medical history significant for hypertension, gout, diabetes who initially presented with pain in his groin and back. CT angiogram showed bilateral emphysema and pulmonary nodules with compressive atelectasis of right lower lobe. Patient underwent a biopsy which showed chronic inflammation, and reactive fibroblastic tissue. He was also found to have significant spinal stenosis and underwent a laminectomy by neurosurgery. The patient's hospital stay was complicated by septic shock secondary to hospital-acquired pneumonia and C. difficile. Severe cervical spinal stenosis s/p C2 hemicolectomy, C3 through C5 laminoplasty with quadriplegia and acute spinal injury MRI C-spine 09/15: Focal severe spinal canal stenosis at C4-5. And otherwise moderate changes on other levels Head CT 08/23: 2 questionable tiny focal hemorrhages. MRI of brain 08/26 chronic small vessel ischemic and atrophic changes. EEG 09/03 revealed severe encephalopathy. No epileptiform activity Neurosurgery Dr. Victor consulted, Poor chance of neurological recovery for him, no further surgical intervention per son. Neurology Dr. Carvalho. Patient treated with steroids per neurology recommendations, course completed. Hypertension, CAD, A. fib Blood pressure remains stable Amiodarone previously stopped due to bradycardia Continue metoprolol and digoxin Acute on chronic respiratory failure secondary to COPD CT pulmonary angiogram revealed multiple masses. 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 Pulmonology has advised against doing a second biopsy given risk. Repeat CT scan recommended in 4 weeks, if mass decrease in size more likely that this is infectious etiology malignancy. Continue trach lavage and suction as needed, continue 35% FiO2 to collar Course of Levaquin completed on 10/21/2017 Appreciate pulmonology following Severe malnutrition Tolerating tube feeds Continue to increase p.o. diet as tolerated Urinary retention Larson in place per urology Type 2 diabetes Accu-Cheks with sliding scale insulin coverage Diabetic diet Sepsis, trach infection, hospital-acquired pneumonia, C. difficile colitis All resolved DVT Prophylaxis Heparin No changes to anterior assessment Discharge Planning: Prognosis is poor. Palliative care is following, family declined Hospice.
[2017-10-25] MEDS: Insulin NovoLOG Aspart Correctional Sugar Inj SQ SCH ×4 (05:58→23:43)
--- NOTE | 2017-10-25 08:14 | P.PNIM ---
Subjective Interval history: in no acute distress. afebrile. Physical Exam Vital signs: Vital Signs 10/24/17 09:34 10/24/17 12:00 10/24/17 15:54 Temperature 97.8 F 98 F Pulse Rate 111 H 92 H 98 H Respiratory Rate 18 18 Blood Pressure 112/79 155/95 H Pulse Oximetry 95 94 L 95 10/24/17 20:00 10/24/17 21:25 10/25/17 00:00 Temperature 97.9 F 98 F Pulse Rate 105 H 116 H 71 Respiratory Rate 18 Blood Pressure 167/98 H 91/58 L Pulse Oximetry 93 L 95 96 10/25/17 04:00 Temperature 98.2 F Pulse Rate 83 Respiratory Rate 18 Blood Pressure 105/66 Pulse Oximetry 97 Intake & Output 10/24/17 10/25/17 10/25/17 18:59 06:59 18:59 Intake Total 650 / 650 1137 / 1137 Output Total 450 / 450 1400 / 1400 Balance 200 / 200 -263 / -263 Intake: Tube Feeding 350 / 350 417 / 417 Tube Irrigant 120 / 120 Water Bolus Amount 300 / 300 600 / 600 Output: Urine 450 / 450 Urine Amount (Catheter) 1400 / 1400 Indwelling Urethral Catheter 1400 / 1400 Other: Date of Last Bowel Movement 10/24/17 10/24/17 # Bowel Movements 2 # Incontinent Bowel Movements 1 - Constitutional no acute distress - Routine Respiratory Exam Present: CTA bilaterally - Routine Cardiovascular Exam Present: RRR - Routine Abdominal Exam Present: soft - Urinary Catheter Management Indwelling Urethral Catheter Cath placed during this visit: yes Urethral indwelling: Yes Reason for continuing: Acute urinary retention Insertion date: 08/20/17 Insertion time: 17:00 Results - Labs CBC & Chem 7: 10/18/17 08:30 10/18/17 08:30 Laboratory Results - last 24 hr 10/24/17 10/24/17 10/25/17 13:30 23:27 04:53 POC Glucose 135 H 138 H 105 Microbiology 10/22/17 06:20 Catheterized Urine Urine Culture - Preliminary Escherichia coli Yeast species - Procedures 08/23- intubation 09/03- bronchoscopy, lung biopsy, thoracentesis 09/08- tracheostomy 09/11- PEG placement Assessment and Plan - Plan In summary this is a 77-year-old man with a medical history significant for hypertension, gout, diabetes who initially presented with pain in his groin and back. CT angiogram showed bilateral emphysema and pulmonary nodules with compressive atelectasis of right lower lobe. Patient underwent a biopsy which showed chronic inflammation, and reactive fibroblastic tissue. He was also found to have significant spinal stenosis and underwent a laminectomy by neurosurgery. The patient's hospital stay was complicated by septic shock secondary to hospital-acquired pneumonia and C. difficile. Severe cervical spinal stenosis Status post C2 hemicolectomy, C3 through C5 laminoplasty with quadriplegia and acute spinal injury MRI C-spine 09/15: Focal severe spinal canal stenosis at C4-5. Moderate diffuse broad-based bulging at C3-4 with some mild increased signal in the spinal cord at this level. Moderate spinal canal stenosis at C6-C7 Bilateral facet arthritis at multiple levels. Head CT 08/23: 2 questionable tiny focal hemorrhages. MRI of brain 08/26 chronic small vessel ischemic and atrophic changes. EEG 09/03 revealed severe encephalopathy. No epileptiform activity Neurosurgery Dr. Victor consulted, Poor chance of neurological recovery for him, recent discussion with Dr. Smith and son, no further surgical intervention per son. Neurology Dr. Carvalho. Patient treated with steroids per neurology recommendations. Completed the course of treatment. Hypertension- CAD A-Fib continue metoprolol & digoxin (was previously on amiodarone, was stopped due to bradycardia) BP is stable Acute on chronic respiratory failure secondary to COPD CT pulmonary angiogram revealed multiple masses. Lung mass biopsied on August 28 showed CHRONIC INFLAMMATORY AND REACTIVE FIBROBLASTIC TISSUE CONTAINING ENTRAPPED BENIGN EPITHELIUM. Second biopsy on hold due to risk of decompensation. Pulmonology has advised against doing a second biopsy given significant risk. Repeat CT scan in 4 weeks, if mass decrease in size more likely that this is infectious etiology malignancy. Pulmonology following. Severe malnutrition Tolerating tube feeds ALSO BEING FED A DIET Urinary retention Larson Diabetes Continue sliding scale Levemir on hold Severe Sepsis: resolved Trach Site infection: Resolved HCAP: resolved C. Diff colitis: resolved FEN DVT proph: SCDs . GI: lansoprazole
[2017-10-25] MEDS: Metoprolol Tartrate 50 MG Tablet PO SCH ×2 (08:53→21:49)
[2017-10-25] MEDS: Insulin Detemir Inj 1,000 UNIT/10 ML Vial SQ SCH ×2 (09:00→21:48)
[2017-10-25] MEDS: LORazepam 1 MG Tablet G-TUBE PRN (21:48)
[2017-10-25] MEDS: Hyoscyamine Inj 0.5 MG/ML Ampul IV.PUSH PRN (21:52)
[2017-10-26] MEDS: Insulin NovoLOG Aspart Correctional Sugar Inj SQ SCH ×3 (05:39→19:30)
[2017-10-26] MEDS: LORazepam 1 MG Tablet G-TUBE PRN ×2 (07:50→21:34)
[2017-10-26] MEDS: Hyoscyamine Inj 0.5 MG/ML Ampul IV.PUSH PRN (07:51)
[2017-10-26] MEDS: Insulin Detemir Inj 1,000 UNIT/10 ML Vial SQ SCH ×2 (09:00→21:33)
[2017-10-26] MEDS: Metoprolol Tartrate 50 MG Tablet PO SCH ×2 (09:00→21:07)
--- NOTE | 2017-10-26 10:47 | P.PN ---
Subjective Interval history: Patient seen and examined Case discussed with NIKOLAI Cano No acute event overnight, and patient is currently afebrile No BM x several days Physical Exam Vital signs: Vital Signs 10/25/17 12:00 10/25/17 16:00 10/25/17 20:00 Temperature 98.6 F 98.4 F 97 F L Pulse Rate 73 78 87 Respiratory Rate 16 16 30 H Blood Pressure 109/87 110/68 155/87 H Pulse Oximetry 94 L 98 98 10/25/17 20:41 10/26/17 00:00 10/26/17 04:00 Temperature 97 F L 98.6 F Pulse Rate 86 81 103 H Respiratory Rate 18 25 H 25 H Blood Pressure 131/82 145/87 H Pulse Oximetry 99 97 97 10/26/17 07:00 10/26/17 08:00 10/26/17 09:17 Temperature 98.6 F Pulse Rate 117 H 83 Respiratory Rate 22 20 Blood Pressure 157/89 H Pulse Oximetry 99 99 10/26/17 09:19 Temperature Pulse Rate Respiratory Rate Blood Pressure Pulse Oximetry 99 Intake & Output 10/25/17 10/26/17 10/26/17 18:59 06:59 18:59 Intake Total 1080 / 1080 1220 / 1220 Output Total 800 / 800 950 / 950 Balance 280 / 280 270 / 270 Weight 65.7 kg Intake: Oral 0 / 0 Tube Feeding 480 / 480 420 / 420 Tube Irrigant 800 / 800 Water Bolus Amount 600 / 600 Anesthesia Amount 0 / 0 Output: Estimated Blood Loss 300 / 300 Urine Amount (Catheter) 500 / 500 950 / 950 Indwelling Urethral Catheter 500 / 500 950 / 950 Other: Date of Last Bowel Movement 10/24/17 10/24/17 10/15/17 # Incontinent Bowel Movements 1 Narrative: GENERAL: NAD SKIN: Warm and dry. HEAD: Normocephalic. EYES: No scleral icterus. No injection or drainage. NECK: Supple, trachea midline. No JVD or lymphadenopathy. CARDIOVASCULAR: Regular rate and rhythm without murmurs, gallops, or rubs. RESPIRATORY: Breath sounds equal bilaterally. No accessory muscle use. GASTROINTESTINAL: Abdomen soft, non-tender, nondistended. MUSCULOSKELETAL: No cyanosis, or edema. PEG tube in place BACK: Nontender without obvious deformity. No CVA tenderness. - Urinary Catheter Management Indwelling Urethral Catheter Cath placed during this visit: yes Urethral indwelling: Yes Reason for continuing: Acute urinary retention Insertion date: 08/20/17 Insertion time: 17:00 Results - Labs CBC & Chem 7: 10/18/17 08:30 10/18/17 08:30 Laboratory Results - last 24 hr 10/22/17 10/25/17 10/25/17 06:20 18:21 23:40 POC Glucose 146 H 141 H Urine Color Yellow Urine Clarity Cloudy H Urine pH 8.0 Ur Specific [place] 1.012 Urine Protein Negative Urine Glucose (UA) Negative Urine Ketones Negative Urine Occult Blood Moderate H Urine Nitrate Negative Urine Bilirubin Negative Urine Urobilinogen 2.0 H Ur Leukocyte Esterase Large H Urine RBC 42 H Urine WBC Urine WBC Clumps Moderate H Ur Squamous Epith Cells 2 Urine Bacteria Many H Urine Mucus Few H Micro UA Comment Cath-culture ind Urine Culture Comments Cath-cult indicated 10/26/17 05:36 POC Glucose 168 H Urine Color Urine Clarity Urine pH Ur Specific [place] Urine Protein Urine Glucose (UA) Urine Ketones Urine Occult Blood Urine Nitrate Urine Bilirubin Urine Urobilinogen Ur Leukocyte Esterase Urine RBC Urine WBC Urine WBC Clumps Ur Squamous Epith Cells Urine Bacteria Urine Mucus Micro UA Comment Urine Culture Comments Microbiology 10/22/17 06:20 Catheterized Urine Urine Culture - Final Escherichia coli Michelle parapsilosis - Procedures 08/23- intubation 09/03- bronchoscopy, lung biopsy, thoracentesis 09/08- tracheostomy 09/11- PEG placement Assessment and Plan - Plan Severe cervical spinal stenosis Status post C2 hemicolectomy, C3 through C5 laminoplasty with quadriplegia and acute spinal injury MRI C-spine 09/15: Focal severe spinal canal stenosis at C4-5. Moderate diffuse broad-based bulging at C3-4 with some mild increased signal in the spinal cord at this level. Moderate spinal canal stenosis at C6-C7 Bilateral facet arthritis at multiple levels. Head CT 08/23: 2 questionable tiny focal hemorrhages. MRI of brain 08/26 chronic small vessel ischemic and atrophic changes. EEG 09/03 revealed severe encephalopathy. No epileptiform activity Neurosurgery Dr. Victor consulted, Poor chance of neurological recovery for him, recent discussion with Dr. Smith and son, no further surgical intervention per son. Neurology Dr. Carvalho. Patient treated with steroids per neurology recommendations. Completed the course of treatment. Hypertension- CAD A-Fib continue metoprolol & digoxin (was previously on amiodarone, was stopped due to bradycardia) Acute on chronic respiratory failure secondary to COPD CT pulmonary angiogram revealed multiple masses. Lung mass biopsied on August 28 showed CHRONIC INFLAMMATORY AND REACTIVE FIBROBLASTIC TISSUE CONTAINING ENTRAPPED BENIGN EPITHELIUM. Second biopsy on hold due to risk of decompensation. Pulmonology has advised against doing a second biopsy given significant risk. Repeat CT scan in 4 weeks, if mass decrease in size more likely that this is infectious etiology malignancy. Pulmonology following. Severe malnutrition Tolerating tube feeds along with a diet Urinary retention Continue Larson Diabetes Continue sliding scale Levemir on hold Severe Sepsis: resolved Trach Site infection: Resolved HCAP: resolved status post treatment C. Diff colitis: resolved Constipation Start stool softener FEN DVT proph: SCDs . GI: lansoprazole
[2017-10-27] MEDS: Insulin NovoLOG Aspart Correctional Sugar Inj SQ SCH ×4 (00:40→17:13)
[2017-10-27] MEDS: LORazepam 1 MG Tablet G-TUBE PRN (07:44)
[2017-10-27] MEDS: Insulin Detemir Inj 1,000 UNIT/10 ML Vial SQ SCH ×2 (08:51→23:11)
[2017-10-27] MEDS: Metoprolol Tartrate 50 MG Tablet PO SCH ×3 (08:52→22:24)
--- NOTE | 2017-10-27 09:12 | P.PNIM ---
Subjective Interval history: Nursing staff states that patient continues to be restless when is not at bedside. Not resting well and not sleeping well. Attempts to pull off his trach at times. Physical Exam Vital signs: Vital Signs 10/26/17 09:17 10/26/17 09:19 10/26/17 12:00 Temperature 98.4 F Pulse Rate 83 98 H Respiratory Rate 20 16 Blood Pressure 130/58 L Pulse Oximetry 99 10/26/17 16:00 10/26/17 19:00 10/26/17 20:00 Temperature 98.6 F 96.2 F L Pulse Rate 78 84 Respiratory Rate 16 18 20 Blood Pressure 128/68 102/61 Pulse Oximetry 94 L 97 10/26/17 20:11 10/27/17 00:00 10/27/17 04:00 Temperature 98.4 F 96.9 F L Pulse Rate 91 H 88 88 Respiratory Rate 18 20 20 Blood Pressure 103/59 L 124/67 Pulse Oximetry 96 97 96 10/27/17 05:23 10/27/17 08:00 10/27/17 08:52 Temperature 97 F L Pulse Rate 92 H 88 Respiratory Rate 18 16 Blood Pressure 108/70 Pulse Oximetry 96 98 97 Intake & Output 10/26/17 10/27/17 10/27/17 18:59 06:59 18:59 Intake Total 1180 / 1180 Output Total 1100 / 1100 Balance 80 / 80 Intake: Oral 0 / 0 Tube Feeding 480 / 480 Water Bolus Amount 600 / 600 Anesthesia Amount 0 / 0 Other 100 / 100 Output: Estimated Blood Loss 300 / 300 Urine Amount (Catheter) 800 / 800 Indwelling Urethral Catheter 800 / 800 Other: Other Intake Source Saline Solution Date of Last Bowel Movement 10/26/17 10/26/17 # Bowel Movements 1 Narrative: GENERAL: NAD SKIN: Warm and dry. HEAD: Normocephalic. EYES: No scleral icterus. No injection or drainage. NECK: Supple, trachea midline. No JVD or lymphadenopathy. CARDIOVASCULAR: Regular rate and rhythm RESPIRATORY: Breath sounds equal bilaterally. No accessory muscle use. GASTROINTESTINAL: Abdomen soft, non-tender, nondistended. MUSCULOSKELETAL: No cyanosis, or edema. PEG tube in place NEURO: Agitated. Inconsistently follows directions. - Urinary Catheter Management Indwelling Urethral Catheter Cath placed during this visit: yes Urethral indwelling: Yes Reason for continuing: Chronic Urinary Retention Insertion date: 08/20/17 Insertion time: 17:00 Results - Labs CBC & Chem 7: 10/18/17 08:30 10/18/17 08:30 Laboratory Results - last 24 hr 10/26/17 10/27/17 10/27/17 17:22 00:07 06:32 POC Glucose 148 H 173 H 110 - Procedures 08/23- intubation 09/03- bronchoscopy, lung biopsy, thoracentesis 09/08- tracheostomy 09/11- PEG placement Assessment and Plan - Plan Severe cervical spinal stenosis Status post C2 hemicolectomy, C3 through C5 laminoplasty with quadriplegia and acute spinal injury MRI C-spine 09/15: Focal severe spinal canal stenosis at C4-5. Moderate diffuse broad-based bulging at C3-4 with some mild increased signal in the spinal cord at this level. Moderate spinal canal stenosis at C6-C7 Bilateral facet arthritis at multiple levels. Head CT 08/23: 2 questionable tiny focal hemorrhages. MRI of brain 08/26 chronic small vessel ischemic and atrophic changes. EEG 09/03 revealed severe encephalopathy. No epileptiform activity Neurosurgery Dr. Victor consulted, Poor chance of neurological recovery for him, recent discussion with Dr. Smith and son, no further surgical intervention per son. Neurology Dr. Carvalho. Patient treated with steroids per neurology recommendations. Completed the course of treatment. Hypertension-continue with metoprolol CAD A-Fib continue metoprolol & digoxin (was previously on amiodarone, was stopped due to bradycardia) Acute on chronic respiratory failure secondary to COPD CT pulmonary angiogram revealed multiple masses. Lung mass biopsied on August 28 showed CHRONIC INFLAMMATORY AND REACTIVE FIBROBLASTIC TISSUE CONTAINING ENTRAPPED BENIGN EPITHELIUM. Second biopsy on hold due to risk of decompensation. Pulmonology has advised against doing a second biopsy given significant risk. Repeat CT scan in 4 weeks, if mass decrease in size more likely that this is infectious etiology malignancy. Pulmonology following. Severe malnutrition Tolerating tube feeds along with a diet Urinary retention Continue Larson Diabetes mellitus, type II Continue sliding scale Levemir on hold Severe Sepsis: resolved Trach Site infection: Resolved HCAP: resolved status post treatment C. Diff colitis: resolved Constipation Start stool softener agitation/ delirium - seroquel QHS trial FENtube feeds along with encouraging p.o. diet DVT proph: SCDs . GI: lansoprazole
[2017-10-27] MEDS: QUEtiapine 25 MG Tablet PO SCH ×3 (11:03→22:24)
--- NOTE | 2017-10-27 19:22 | P.PN ---
Subjective Interval history: on a T Bar FIo2 30%. No change in status. Good output and no fever. Physical Exam Vital signs: Vital Signs 10/26/17 20:00 10/26/17 20:11 10/27/17 00:00 Temperature 96.2 F L 98.4 F Pulse Rate 84 91 H 88 Respiratory Rate 20 18 20 Blood Pressure 102/61 103/59 L Pulse Oximetry 97 96 97 10/27/17 04:00 10/27/17 05:23 10/27/17 08:00 Temperature 96.9 F L 97 F L Pulse Rate 88 92 H Respiratory Rate 20 18 Blood Pressure 124/67 108/70 Pulse Oximetry 96 96 98 10/27/17 08:52 10/27/17 12:00 10/27/17 15:08 Temperature 97.8 F 98 F Pulse Rate 88 85 88 Respiratory Rate 16 18 Blood Pressure 118/67 Pulse Oximetry 97 99 95 Intake & Output 10/27/17 10/27/17 10/28/17 06:59 18:59 06:59 Intake Total 700 / 700 Output Total 2200 / 2200 Balance -1500 / -1500 Intake: Oral 0 / 0 Tube Feeding 300 / 300 Tube Irrigant 0 / 0 Water Bolus Amount 300 / 300 Anesthesia Amount 0 / 0 Other 100 / 100 Output: Urine 1700 / 1700 Stool 100 / 100 Urine/Stool Mix 100 / 100 Estimated Blood Loss 300 / 300 Other: Other Intake Source Saline Solution Date of Last Bowel Movement 10/27/17 # Bowel Movements 0 # Incontinent Bowel Movements 1 Narrative: GENERAL: NAD, elderly male awake SKIN: Warm and dry. HEAD: Normocephalic. EYES: No scleral icterus. No injection or drainage. NECK: Supple, trachea midline. No JVD or lymphadenopathy. CARDIOVASCULAR: Regular rate and rhythm RESPIRATORY: Breath sounds equal bilaterally. Few wheezes. No accessory muscle use. GASTROINTESTINAL: Abdomen soft, non-tender, nondistended. MUSCULOSKELETAL: No cyanosis, or edema. PEG tube in place NEURO: Weak right limbs ,and awake . - Urinary Catheter Management Indwelling Urethral Catheter Cath placed during this visit: yes Urethral indwelling: Yes Reason for continuing: Chronic Urinary Retention Insertion date: 08/20/17 Insertion time: 17:00 Results - Labs CBC & Chem 7: 10/18/17 08:30 10/18/17 08:30 Laboratory Results - last 24 hr 10/27/17 10/27/17 10/27/17 00:07 06:32 12:26 POC Glucose 173 H 110 119 H - Procedures 08/23- intubation 09/03- bronchoscopy, lung biopsy, thoracentesis 09/08- tracheostomy 09/11- PEG placement Assessment and Plan - Assessment (1) Cervical myelopathy Code(s): G95.9 - Disease of spinal cord, unspecified Status: Acute (2) Respiratory failure Code(s): J96.90 - Respiratory failure, unspecified, unspecified whether with hypoxia or hypercapnia Status: Acute (3) SVT (supraventricular tachycardia) Code(s): I47.1 - Supraventricular tachycardia Status: Acute (4) Lung mass Code(s): R91.8 - Other nonspecific abnormal finding of lung field Status: Acute (5) Diabetes Code(s): E11.9 - Type 2 diabetes mellitus without complications Status: Acute (6) Gout Code(s): M10.9 - Gout, unspecified Status: Acute (7) Spinal stenosis Code(s): M48.00 - Spinal stenosis, site unspecified Status: Acute (8) Dyspnea Code(s): R06.00 - Dyspnea, unspecified Status: Acute - Plan 1. Cont T Bar at 30 % FIO2 and wean to keep sat >92 . 2. Trach lavage and suction PRN 3. Cont Duoneb nebs qid. 4. CXR in am 5. Tube feeds at 60CC 6. PT evaluation.
[2017-10-28] MEDS: Insulin NovoLOG Aspart Correctional Sugar Inj SQ SCH ×4 (00:50→18:06)
[2017-10-28] MEDS: LORazepam 1 MG Tablet G-TUBE PRN ×2 (07:23→18:09)
--- NOTE | 2017-10-28 10:16 | P.PN ---
Subjective Interval history: Patient seen and examined Appears anxious, attempted to remove his Collar Case discussed with registered nurse Physical Exam Vital signs: Vital Signs 10/27/17 12:00 10/27/17 15:08 10/27/17 20:00 Temperature 97.8 F 98 F 97.6 F Pulse Rate 85 88 87 Respiratory Rate 18 18 Blood Pressure 118/67 94/60 L Pulse Oximetry 99 95 99 10/27/17 23:04 10/28/17 00:00 10/28/17 00:52 Temperature 98.6 F Pulse Rate Respiratory Rate 20 Blood Pressure 111/64 Pulse Oximetry 96 95 97 10/28/17 04:00 10/28/17 08:00 10/28/17 08:13 Temperature 97.4 F L 98.1 F Pulse Rate Respiratory Rate 20 18 Blood Pressure 111/64 123/73 Pulse Oximetry 95 96 97 10/28/17 08:14 Temperature Pulse Rate 87 Respiratory Rate 20 Blood Pressure Pulse Oximetry Intake & Output 10/27/17 10/28/17 10/28/17 18:59 06:59 18:59 Intake Total 700 / 700 660 / 660 Output Total 2200 / 2200 350 / 350 Balance -1500 / -1500 310 / 310 Intake: Oral 0 / 0 Tube Feeding 300 / 300 460 / 460 Tube Irrigant 0 / 0 Water Bolus Amount 300 / 300 200 / 200 Anesthesia Amount 0 / 0 Other 100 / 100 Output: Urine 1700 / 1700 Stool 100 / 100 0 / 0 Urine/Stool Mix 100 / 100 Estimated Blood Loss 300 / 300 Urine Amount (Catheter) 350 / 350 Indwelling Urethral Catheter 350 / 350 Other: Other Intake Source Saline Solution Date of Last Bowel Movement 10/27/17 10/26/17 10/26/17 # Bowel Movements 0 # Incontinent Bowel Movements 1 Narrative: GENERAL: NAD, elderly male awake SKIN: Warm and dry. HEAD: Normocephalic. EYES: No scleral icterus. No injection or drainage. NECK: Supple, trachea midline. No JVD or lymphadenopathy. CARDIOVASCULAR: Regular rate and rhythm RESPIRATORY: Breath sounds equal bilaterally. Few wheezes. No accessory muscle use. GASTROINTESTINAL: Abdomen soft, non-tender, nondistended. MUSCULOSKELETAL: No cyanosis, or edema. PEG tube in place NEURO: Weak right limbs ,and awake . - Urinary Catheter Management Indwelling Urethral Catheter Cath placed during this visit: yes Urethral indwelling: Yes Reason for continuing: Chronic Urinary Retention Insertion date: 08/20/17 Insertion time: 17:00 Results - Labs CBC & Chem 7: 10/18/17 08:30 10/18/17 08:30 Laboratory Results - last 24 hr 10/27/17 10/28/17 10/28/17 12:26 00:40 05:10 POC Glucose 119 H 162 H 106 - Procedures 08/23- intubation 09/03- bronchoscopy, lung biopsy, thoracentesis 09/08- tracheostomy 09/11- PEG placement Assessment and Plan - Plan Severe cervical spinal stenosis Status post C2 hemicolectomy, C3 through C5 laminoplasty with quadriplegia and acute spinal injury MRI C-spine 09/15: Focal severe spinal canal stenosis at C4-5. Moderate diffuse broad-based bulging at C3-4 with some mild increased signal in the spinal cord at this level. Moderate spinal canal stenosis at C6-C7 Bilateral facet arthritis at multiple levels. Head CT 08/23: 2 questionable tiny focal hemorrhages. MRI of brain 08/26 chronic small vessel ischemic and atrophic changes. EEG 09/03 revealed severe encephalopathy. No epileptiform activity Neurosurgery Dr. Victor consulted, Poor chance of neurological recovery for him, recent discussion with Dr. Smith and son, no further surgical intervention per son. Neurology Dr. Carvalho. Patient treated with steroids per neurology recommendations. Completed the course of treatment. Hypertension- CAD A-Fib continue metoprolol & digoxin (was previously on amiodarone, was stopped due to bradycardia) Acute on chronic respiratory failure secondary to COPD CT pulmonary angiogram revealed multiple masses. Lung mass biopsied on August 28 showed CHRONIC INFLAMMATORY AND REACTIVE FIBROBLASTIC TISSUE CONTAINING ENTRAPPED BENIGN EPITHELIUM. Second biopsy on hold due to risk of decompensation. Pulmonology has advised against doing a second biopsy given significant risk. Repeat CT scan in 4 weeks, if mass decrease in size more likely that this is infectious etiology malignancy. Pulmonology following. Severe malnutrition Tolerating tube feeds along with a diet Urinary retention Continue Larson Diabetes Continue sliding scale Levemir on hold Severe Sepsis: resolved Trach Site infection: Resolved HCAP: resolved status post treatment C. Diff colitis: resolved Constipation Continue stool softener FEN DVT proph: SCDs . GI: lansoprazole
[2017-10-28] MEDS: QUEtiapine 25 MG Tablet PO SCH ×2 (12:09→21:00)
[2017-10-28] MEDS: Metoprolol Tartrate 50 MG Tablet PO SCH ×2 (12:09→21:00)
[2017-10-28] MEDS: Insulin Detemir Inj 1,000 UNIT/10 ML Vial SQ SCH ×2 (12:09→21:00)
[2017-10-29] MEDS: LORazepam 1 MG Tablet G-TUBE PRN ×2 (02:10→22:27)
[2017-10-29] MEDS: Insulin NovoLOG Aspart Correctional Sugar Inj SQ SCH ×4 (06:04→18:00)
[2017-10-29] MEDS: QUEtiapine 25 MG Tablet PO SCH ×2 (08:57→21:00)
[2017-10-29] MEDS: Senna/Docusate Sodium 8.6/50 MG Tablet PO PRN (08:57)
[2017-10-29] MEDS: Insulin Detemir Inj 1,000 UNIT/10 ML Vial SQ SCH ×2 (08:57→21:00)
[2017-10-29] MEDS: Metoprolol Tartrate 50 MG Tablet PO SCH ×2 (08:57→21:00)
--- NOTE | 2017-10-29 09:27 | P.PN ---
Subjective Interval history: Patient seen and examined Appears calm and resting vital stable Physical Exam Vital signs: Vital Signs 10/28/17 12:00 10/28/17 15:24 10/28/17 18:25 Temperature 98.0 F 98 F Pulse Rate Respiratory Rate 22 24 Blood Pressure 93/56 L 118/75 Pulse Oximetry 97 97 10/28/17 20:00 10/28/17 20:24 10/29/17 00:00 Temperature 96.2 F L 97.9 F Pulse Rate 94 H Respiratory Rate 24 18 20 Blood Pressure 119/67 119/69 Pulse Oximetry 96 96 97 10/29/17 04:00 Temperature 97.8 F Pulse Rate Respiratory Rate 20 Blood Pressure 114/75 Pulse Oximetry 98 Intake & Output 10/28/17 10/29/17 10/29/17 18:59 06:59 18:59 Intake Total 680 / 680 860 / 860 Output Total 1999 / 1999 1300 / 1300 Balance -1320 / -1320 -440 / -440 Weight 65.7 kg Intake: Oral 0 / 0 0 / 0 Tube Feeding 380 / 380 660 / 660 Tube Irrigant 0 / 0 Water Bolus Amount 200 / 200 200 / 200 Anesthesia Amount 0 / 0 Other 100 / 100 Output: Urine 850 / 850 450 / 450 Stool 0 / 0 0 / 0 Urine/Stool Mix 0 / 0 0 / 0 Estimated Blood Loss 300 / 300 Urine Amount (Catheter) 850 / 850 850 / 850 Indwelling Urethral Catheter 850 / 850 850 / 850 Other: Other Intake Source Saline Solution Date of Last Bowel Movement 10/26/17 10/26/17 # Bowel Movements 0 # Incontinent Bowel Movements 1 0 Narrative: GENERAL: NAD SKIN: Warm and dry. HEAD: Normocephalic. EYES: No scleral icterus. No injection or drainage. NECK: Supple, trachea midline. No JVD or lymphadenopathy. CARDIOVASCULAR: Regular rate and rhythm RESPIRATORY: Breath sounds equal bilaterally. Few wheezes. No accessory muscle use. GASTROINTESTINAL: Abdomen soft, non-tender, nondistended. MUSCULOSKELETAL: No cyanosis, or edema. PEG tube in place NEURO: Weak right limbs . - Urinary Catheter Management Indwelling Urethral Catheter Cath placed during this visit: yes Urethral indwelling: Yes Reason for continuing: Chronic Urinary Retention Insertion date: 08/20/17 Insertion time: 17:00 Results - Labs CBC & Chem 7: 10/18/17 08:30 10/18/17 08:30 Laboratory Results - last 24 hr 10/28/17 10/28/17 10/29/17 12:04 17:34 05:44 POC Glucose 170 H 109 144 H - Procedures 08/23- intubation 09/03- bronchoscopy, lung biopsy, thoracentesis 09/08- tracheostomy 09/11- PEG placement Assessment and Plan - Plan Severe cervical spinal stenosis Status post C2 hemicolectomy, C3 through C5 laminoplasty with quadriplegia and acute spinal injury MRI C-spine 09/15: Focal severe spinal canal stenosis at C4-5. Moderate diffuse broad-based bulging at C3-4 with some mild increased signal in the spinal cord at this level. Moderate spinal canal stenosis at C6-C7 Bilateral facet arthritis at multiple levels. Head CT 08/23: 2 questionable tiny focal hemorrhages. MRI of brain 08/26 chronic small vessel ischemic and atrophic changes. EEG 09/03 revealed severe encephalopathy. No epileptiform activity Neurosurgery Dr. Victor consulted, Poor chance of neurological recovery for him, recent discussion with Dr. Smith and son, no further surgical intervention per son. Neurology Dr. Carvalho. Patient treated with steroids per neurology recommendations. Completed the course of treatment. Hypertension- CAD A-Fib continue metoprolol & digoxin (was previously on amiodarone, was stopped due to bradycardia) Acute on chronic respiratory failure secondary to COPD CT pulmonary angiogram revealed multiple masses. Lung mass biopsied on August 28 showed CHRONIC INFLAMMATORY AND REACTIVE FIBROBLASTIC TISSUE CONTAINING ENTRAPPED BENIGN EPITHELIUM. Second biopsy on hold due to risk of decompensation. Pulmonology has advised against doing a second biopsy given significant risk. Repeat CT scan in 4 weeks, if mass decrease in size more likely that this is infectious etiology malignancy. Pulmonology following. Severe malnutrition Tolerating tube feeds along with a diet Urinary retention Continue Larson Diabetes Continue sliding scale Levemir on hold Severe Sepsis: resolved Trach Site infection: Resolved HCAP: resolved status post treatment C. Diff colitis: resolved Constipation Continue stool softener FEN DVT proph: SCDs . GI: lansoprazole Continue current treatment as of October 29, 2017
--- NOTE | 2017-10-29 18:23 | P.PN ---
Subjective Interval history: Resting quietly. On a T Bar at 30 %. Trach site is clean. No fever. Physical Exam Vital signs: Vital Signs 10/28/17 18:25 10/28/17 20:00 10/28/17 20:24 Temperature 96.2 F L Pulse Rate 94 H Respiratory Rate 24 18 Blood Pressure 119/67 Pulse Oximetry 97 96 96 10/29/17 00:00 10/29/17 04:00 10/29/17 08:00 Temperature 97.9 F 97.8 F 96.4 F L Pulse Rate 84 Respiratory Rate 20 20 16 Blood Pressure 119/69 114/75 89/68 L Pulse Oximetry 97 98 99 10/29/17 09:38 10/29/17 12:00 10/29/17 16:00 Temperature 98.6 F 98.6 F Pulse Rate 86 73 93 H Respiratory Rate 16 16 20 Blood Pressure 100/55 L 103/68 Pulse Oximetry 98 95 95 Intake & Output 10/28/17 10/29/17 10/29/17 18:59 06:59 18:59 Intake Total 680 / 680 860 / 860 Output Total 1999 / 1999 1300 / 1300 Balance -1320 / -1320 -440 / -440 Weight 65.7 kg Intake: Oral 0 / 0 0 / 0 Tube Feeding 380 / 380 660 / 660 Tube Irrigant 0 / 0 Water Bolus Amount 200 / 200 200 / 200 Anesthesia Amount 0 / 0 Other 100 / 100 Output: Urine 850 / 850 450 / 450 Stool 0 / 0 0 / 0 Urine/Stool Mix 0 / 0 0 / 0 Estimated Blood Loss 300 / 300 Urine Amount (Catheter) 850 / 850 850 / 850 Indwelling Urethral Catheter 850 / 850 850 / 850 Other: Other Intake Source Saline Solution Date of Last Bowel Movement 10/26/17 10/26/17 10/15/17 # Bowel Movements 0 # Incontinent Bowel Movements 1 0 Narrative: GENERAL: Elderly male awake and on a T Bar SKIN: Warm and dry. HEAD: Normocephalic. EYES: No scleral icterus. No injection or drainage. NECK: Supple, trachea midline. No JVD or lymphadenopathy. CARDIOVASCULAR: Regular rate and rhythm RESPIRATORY: Breath sounds equal bilaterally. Few wheezes. No accessory muscle use. GASTROINTESTINAL: Abdomen soft, non-tender, nondistended. MUSCULOSKELETAL: No cyanosis, or edema. PEG tube in place NEURO: Weak right limbs . - Urinary Catheter Management Indwelling Urethral Catheter Cath placed during this visit: yes Urethral indwelling: Yes Reason for continuing: Chronic Urinary Retention Insertion date: 08/20/17 Insertion time: 17:00 Results - Labs CBC & Chem 7: 10/18/17 08:30 10/18/17 08:30 Laboratory Results - last 24 hr 10/29/17 05:44 POC Glucose 144 H - Procedures 08/23- intubation 09/03- bronchoscopy, lung biopsy, thoracentesis 09/08- tracheostomy 09/11- PEG placement Assessment and Plan - Assessment (1) Cervical myelopathy Code(s): G95.9 - Disease of spinal cord, unspecified Status: Acute (2) Respiratory failure Code(s): J96.90 - Respiratory failure, unspecified, unspecified whether with hypoxia or hypercapnia Status: Acute (3) SVT (supraventricular tachycardia) Code(s): I47.1 - Supraventricular tachycardia Status: Acute (4) Lung mass Code(s): R91.8 - Other nonspecific abnormal finding of lung field Status: Acute (5) Diabetes Code(s): E11.9 - Type 2 diabetes mellitus without complications Status: Acute (6) Gout Code(s): M10.9 - Gout, unspecified Status: Acute (7) Spinal stenosis Code(s): M48.00 - Spinal stenosis, site unspecified Status: Acute (8) Dyspnea Code(s): R06.00 - Dyspnea, unspecified Status: Acute - Plan 1. Cont T Bar at 35 % FIO2. 2. Trach lavage and suction PRN 3. Cont Duoneb nebs qid. 4. Levsin .125 mg TID PRN. 5. Tube feeds at 60CC 6. PT evaluation. 7. Labs in am.
[2017-10-30] MEDS: Hyoscyamine Inj 0.5 MG/ML Ampul IV.PUSH PRN (02:29)
[2017-10-30] MEDS: LORazepam 1 MG Tablet G-TUBE PRN ×2 (06:00→23:21)
[2017-10-30] MEDS: Insulin NovoLOG Aspart Correctional Sugar Inj SQ SCH ×4 (06:00→18:13)
--- NOTE | 2017-10-30 09:02 | P.PN ---
Subjective Interval history: Nursing denies any deterioration since last night. Patient himself is nonverbal with me. Physical Exam Vital signs: Vital Signs 10/29/17 09:38 10/29/17 12:00 10/29/17 16:00 Temperature 98.6 F 98.6 F Pulse Rate 86 73 93 H Respiratory Rate 16 16 20 Blood Pressure 100/55 L 103/68 Pulse Oximetry 98 95 95 10/29/17 20:00 10/29/17 21:21 10/30/17 00:00 Temperature 98.8 F 98.3 F Pulse Rate 90 92 H 106 H Respiratory Rate 20 18 22 Blood Pressure 96/53 L 101/55 L Pulse Oximetry 96 98 95 10/30/17 04:00 10/30/17 07:00 Temperature 98.0 F Pulse Rate 98 H Respiratory Rate 24 Blood Pressure 110/58 L Pulse Oximetry 95 96 Intake & Output 10/29/17 10/30/17 10/30/17 18:59 06:59 18:59 Intake Total 1360 / 1360 1420 / 1420 Output Total 1100 / 1100 850 / 850 Balance 260 / 260 570 / 570 Intake: Oral 0 / 0 0 / 0 Tube Feeding 660 / 660 660 / 660 Tube Irrigant 0 / 0 160 / 160 Water Bolus Amount 600 / 600 600 / 600 Anesthesia Amount 0 / 0 Other 100 / 100 Output: Stool 0 / 0 Urine/Stool Mix 0 / 0 Estimated Blood Loss 300 / 300 Urine Amount (Catheter) 800 / 800 850 / 850 Indwelling Urethral Catheter 800 / 800 850 / 850 Other: Other Intake Source Saline Solution Date of Last Bowel Movement 10/29/17 10/30/17 # Bowel Movements 1 1 # Incontinent Bowel Movements 0 Narrative: On tracheostomy and cervical collar Not waking up Clear lungs bilaterally, unlabored breathing Heart sounds regular rate rhythm, no murmurs No lower extremity edema - Urinary Catheter Management Indwelling Urethral Catheter Cath placed during this visit: yes Urethral indwelling: Yes Reason for continuing: Chronic Urinary Retention Insertion date: 08/20/17 Insertion time: 17:00 Results - Labs CBC & Chem 7: 10/18/17 08:30 10/18/17 08:30 Laboratory Results - last 24 hr 10/30/17 10/30/17 00:58 06:02 POC Glucose 164 H 177 H - Procedures 08/23- intubation 09/03- bronchoscopy, lung biopsy, thoaracentesis 09/08- tracheostomy 09/11- PEG placement Assessment and Plan - Plan 77-year-old male with quadriplegia and acute spinal injury. While hospitalized, has had a course of severe sepsis, trach site infection, and HCA P , and C. difficile colitis, all of which are resolved at this time. Severe cervical spinal stenosis Status post C2 hemicolectomy, C3 through C5 laminoplasty with quadriplegia and acute spinal injury MRI C-spine 09/15: Focal severe spinal canal stenosis at C4-5. Moderate diffuse broad-based bulging at C3-4 with some mild increased signal in the spinal cord at this level. Moderate spinal canal stenosis at C6-C7 Bilateral facet arthritis at multiple levels. Head CT 08/23: 2 questionable tiny focal hemorrhages. MRI of brain 08/26 chronic small vessel ischemic and atrophic changes. EEG 09/03 revealed severe encephalopathy. No epileptiform activity Neurosurgery Dr. Victor consulted, Poor chance of neurological recovery for him, recent discussion with Dr. Smith and son, no further surgical intervention per son. Neurology Dr. Carvalho. Patient treated with steroids per neurology recommendations. Completed the course of treatment. Hypertension- CAD A-Fib continue metoprolol & digoxin (was previously on amiodarone, was stopped due to bradycardia) Acute on chronic respiratory failure secondary to COPD CT pulmonary angiogram revealed multiple masses. Lung mass biopsied on August 28 showed CHRONIC INFLAMMATORY AND REACTIVE FIBROBLASTIC TISSUE CONTAINING ENTRAPPED BENIGN EPITHELIUM. Second biopsy on hold due to risk of decompensation. Pulmonology has advised against doing a second biopsy given significant risk. Repeat CT scan in 4 weeks, if mass decrease in size more likely that this is infectious etiology malignancy. Pulmonology following. Severe malnutrition Tolerating tube feeds along with a diet Urinary retention Continue [place]arson Diabetes Continue sliding scale Levemir on hold Constipation Continue stool softener DVT proph: SCDs . GI: lansoprazole Continue current treatment as of October 30, 2017
[2017-10-30] MEDS: Insulin Detemir Inj 1,000 UNIT/10 ML Vial SQ SCH ×2 (09:24→20:36)
[2017-10-30] MEDS: QUEtiapine 25 MG Tablet PO SCH ×2 (09:24→20:36)
[2017-10-30] MEDS: Metoprolol Tartrate 50 MG Tablet PO SCH ×2 (09:24→20:36)
--- NOTE | 2017-10-30 14:10 | P.PNPAL ---
Reason for Visit Reason for visit: a. To assist with evaluation and management of symptoms including: dyspnea, pain, b. To assist medical decision maker(s) with: better understanding of current medical conditions; weighing benefits/burdens of medical treatment options; making medical treatment decisions. Subjective Subjective/Interval History: Pt no acute changes. left ext moves the best, can wiggle right toe, and move right hand. could not elicit moviemnt of left lower ext. He sleepy, when awake some anxiety noted, want to talk. Pt's at bedside. Answered questions. She did ask what his chest was like. Inquire about repeat CT as previously, pt has had a mass which cannot be biopsied plan was to repeat CT in 4 weeks. I told her I can speak and discussed with pulmonolgy. I spoke to her about really the lack of progress. She recognize the poor quality of life patient currently have and the frustration. No change in goals of care. endorse no pain. stable today, but he has had bouts of desaturation off an on since being transferred out of icu. Family/Friend Interactions: see hpi. Advance Directives Living Will: Never completed Health Care Surrogate: Never completed Durable Power of Fireproof Door Assembler: Never completed Objective Vital Signs: Vital Signs 10/29/17 16:00 10/29/17 20:00 10/29/17 21:21 Temperature 98.6 F 98.8 F Pulse Rate 93 H 90 92 H Respiratory Rate 20 20 18 Blood Pressure 103/68 96/53 L Pulse Oximetry 95 96 98 10/30/17 00:00 10/30/17 04:00 10/30/17 07:00 Temperature 98.3 F 98.0 F Pulse Rate 106 H 98 H Respiratory Rate 22 24 Blood Pressure 101/55 L 110/58 L Pulse Oximetry 95 95 96 10/30/17 08:00 10/30/17 10:38 Temperature 96.4 F L Pulse Rate 83 90 Respiratory Rate 20 15 Blood Pressure 109/68 Pulse Oximetry 99 Intake & Output 10/29/17 10/30/17 10/30/17 18:59 06:59 18:59 Intake Total 1360 / 1360 1420 / 1420 Output Total 1100 / 1100 850 / 850 Balance 260 / 260 570 / 570 Intake: Oral 0 / 0 0 / 0 Tube Feeding 660 / 660 660 / 660 Tube Irrigant 0 / 0 160 / 160 Water Bolus Amount 600 / 600 600 / 600 Anesthesia Amount 0 / 0 Other 100 / 100 Output: Stool 0 / 0 Urine/Stool Mix 0 / 0 Estimated Blood Loss 300 / 300 Urine Amount (Catheter) 800 / 800 850 / 850 Indwelling Urethral Catheter 800 / 800 850 / 850 Other: Other Intake Source Saline Solution Date of Last Bowel Movement 10/29/17 10/30/17 10/15/17 # Bowel Movements 1 1 # Incontinent Bowel Movements 0 Physical Exam: CONSTITUTIONAL/GENERAL: This is an adequately nourished patient , t bar. TUBES/LINES/DRAINS: trach- t piece, ceja, PIV x2 BUE, SKIN: No jaundice, rashes, or lesions. No wounds seen anteriorly. skin warm/ dry EYES: no eye opening. No injection or drainage. Fundi not examined. ENT: Nose without bleeding or purulent drainage. Limited oropharynx exam 2/2 + T piece CARDIOVASCULAR: RRR without murmurs. No JVD. Peripheral pulses symmetric. Trace periph edema to hands. RESPIRATORY/CHEST: unlabored respirations Coarse breath sounds. Diminished sounds bases. GASTROINTESTINAL: Abdomen soft, non-tender, nondistended. No hepato-splenomegaly , or palpable masses. Bowel sounds present. TF infusing peg MUSCULOSKELETAL: Trace +BUE edema. +soft restraints lower ext. No mottling or clubbing. NEUROLOGICAL: can wiggle toes. Can grab finger on command on left upper ext. Some movement of right upper and lower ext. cannot elicit left lower ext movement today. PSYCH: no apparent distress, Diagnostic Tests Laboratory: Laboratory Results - last 72 hr 10/28/17 10/28/17 10/28/17 00:40 05:10 12:04 POC Glucose 162 H 106 170 H 10/28/17 10/29/17 10/30/17 17:34 05:44 00:58 POC Glucose 109 144 H 164 H 10/30/17 10/30/17 06:02 12:18 POC Glucose 177 H 131 H Result Diagrams: 10/18/17 08:30 10/18/17 08:30 Imaging: ITS Impressions Cervical Spine X-Ray 09/19/17 00:00 CONCLUSION: Surgical hardware noted posteriorly at the C3-C5 levels. Cervical Spine MRI 09/25/17 00:00 CONCLUSION: 1. Status post laminectomy at the C3-C5 levels. Surgical hardware seen at the posterior elements at these levels. 2. Moderate stenosis at the C4-C5 level secondary to disc bulge and central disc protrusion. There is abnormal signal again seen within the cord. The cord appears small this region. This likely secondary to myelomalacia. 3. Mild to moderate narrowing of the thecal sac at the C5-C6 and C6-C7 level. 4. Neural foraminal narrowing throughout the cervical spine as described above. Abdomen X-Ray 10/12/17 00:00 CONCLUSION: Nonspecific bowel gas pattern as above without significant distention Minimal consolidative changes right base with trace pleural effusion. Chest X-Ray 10/22/17 00:00 CONCLUSION: Left greater than right parenchymal opacities persist, not significantly changed. Probably a very small left pleural effusion. 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 Right middle lobe 2.7 x 2.2 x 7's. Spiculated. Left lingula is 3.4 x 3.20 cm. COPD (2) SVT (supraventricular tachycardia) (3) Lung mass Comment: revealed 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 Right middle lobe 2.7 x 2.2 x 7's. Spiculated. Left lingula is 3.4 x 3.20 cm. 1st biopsy did not show malignancy. 2nd biopsy on hold to risk of decompensation. Pulmonlogy advise against 2nd biopsy given risk. Recommends repeat CT in 4 weeks. If mass decrease in size, more possiblility its infections rather than malignancy. (4) Diabetes (5) Gout (6) Spinal stenosis - Symptom Scale (1) Dyspnea 0-10 Scale: Unable to quantify (2) Pain 0-10 Scale: Unable to quantify Pertinent Non-Medical Issues: Psychosocial: Retired. He was living at home with his Tommie Gutierrez and his son "Cristina Palmer. Recently returned from 3 month trip to [place]. Speaks Mandarin only. He also has another son who had just arrive from [place]. He is awaiting for his grandson to arrive also from [place]. Spiritual: unk at this time Legal: Per [place] statutes legal decision maker proxy is pt's . It appears she may have been deferring to son but has been present for major decisions. Family appears are working together. Ethical issues impacting care: no issues identified Important Contacts: Spencer Reilly [phone] Son "Cristina Palmer [phone] Prognosis: 77 yo possible malignant lung nodules vs infection, underlying diastolic heart failure, severe spinal stenosis (s/p surgery) and DM. Prognosis is challenging at this point Pt has made some progress neurologically, wiggling his toes, and movement of upper ext. Prognosis for recovery may be impeded risk for infections bedsores, deconditioning and various complications remains. Oveall it is poor. Code Status: Alternative Code Plan: CODE STATUS - Alternate code. Yes to intubation and mechanical ventilation. no to cpr/ shock/ acls drugs. Capacity- he does not appears to be able to weigh the risk and benefits of decision on my visit. Alertness has improved. He does not appear to have insight or can weigh the risk and benefits. Remains lethargic and tired. LEGAL DECISION MAKER - per [place] statutes is proxy , who defers decisions to son, [place], family all working together. Family meetings- multiple family meetings. They have also met with hospice ( [place](son_ and pt's together). At times I have met with alone, at times with [place]ble (son). [employer] had been use for family meetings. We have reviewed pt's condition, how unstable he is and again reemphsize his overall poor prognosis for functional recovery Discussion of hospice and comfort measures again was discussed and offered. No change in code status. No change in goals of care today. Quality of life and lack of improvement review. If pt does decompensate no cpr or shock acls drugs/ but everything else aggressive. Follow up CT was brought up as pt could not have 2nd biopsy, and plan was to have a repeat CT in terms of mass. I told them I will discuss with utility worker production. SYMPTOMS * shortness of breath -. Questionable malignancy, hx remote TB. O. Status post tracheostomy. risk of decompensation. Family amenable to transferring back to icu, if respiratory status clinically worsen. * pain - ?cause? presented with right side and thoracic pain. imaging showing lung nodules. buttock wound. BX benign, ?repeat. appears comfortable, no signs of pain on exam. No pain today per . Oxycodone is available. Palliative care will continue to follow during hospital course as condition evolves to assist patient/decision maker with understanding of medical conditions, benefits/burdens of treatment options, clarification of goals of treatment, and will assist with symptoms of palliative concern. "Addendum" pulmonology is amenable to repeat CT, but did say, it may not show too much changes, and may be too soon. Appreciate pulmonology input. Attestation Attestation: To help prompt me to consider important information that might be impacting today's encounter and assessment, information from prior notes written by myself or my colleagues may have been "brought forward" into today's note. My signature on this note, however, is an attestation that I personally performed the exam, history, and/or decision-making noted today, and, unless otherwise indicated, the interactions with patient, family, and staff as well as the review of records all occurred today. I also attest that the listed assessment and stated plan reflect my best clinical judgment today based on the combination of historical information, prior notes, and today's exam/ interactions. When time spent is documented, it refers only to time spent today by the signer, or if indicated, combined time spent today by collaborating physician/nurse practitioner.
--- NOTE | 2017-10-30 17:41 | P.PN ---
Subjective Interval history: He is awake and is on a T bar at 40 %. Needs suctioning. No fever. Physical Exam Vital signs: Vital Signs 10/29/17 20:00 10/29/17 21:21 10/30/17 00:00 Temperature 98.8 F 98.3 F Pulse Rate 90 92 H 106 H Respiratory Rate 20 18 22 Blood Pressure 96/53 L 101/55 L Pulse Oximetry 96 98 95 10/30/17 04:00 10/30/17 07:00 10/30/17 08:00 Temperature 98.0 F 96.4 F L Pulse Rate 98 H 83 Respiratory Rate 24 20 Blood Pressure 110/58 L 109/68 Pulse Oximetry 95 96 10/30/17 10:38 10/30/17 12:00 Temperature 98.6 F Pulse Rate 90 80 Respiratory Rate 15 Blood Pressure 106/66 Pulse Oximetry 99 Intake & Output 10/29/17 10/30/17 10/30/17 18:59 06:59 18:59 Intake Total 1360 / 1360 1420 / 1420 Output Total 1100 / 1100 850 / 850 Balance 260 / 260 570 / 570 Intake: Oral 0 / 0 0 / 0 Tube Feeding 660 / 660 660 / 660 Tube Irrigant 0 / 0 160 / 160 Water Bolus Amount 600 / 600 600 / 600 Anesthesia Amount 0 / 0 Other 100 / 100 Output: Stool 0 / 0 Urine/Stool Mix 0 / 0 Estimated Blood Loss 300 / 300 Urine Amount (Catheter) 800 / 800 850 / 850 Indwelling Urethral Catheter 800 / 800 850 / 850 Other: Other Intake Source Saline Solution Date of Last Bowel Movement 10/29/17 10/30/17 10/15/17 # Bowel Movements 1 1 # Incontinent Bowel Movements 0 Narrative: Has tracheostomy with T Bar a nd FIO2 40% Lethargic. Occ wheeze , unlabored breathing GENERAL: SKIN: Warm and dry. HEAD: Atraumatic. Normocephalic. EYES: Pupils equal and round. No scleral icterus. No injection or drainage. ENT: No nasal bleeding or discharge. Mucous membranes pink and moist. NECK: Trachea midline. No JVD. CARDIOVASCULAR: Regular rate and rhythm. RESPIRATORY: No accessory muscle use.Occ Wheeze. Breath sounds equal bilaterally. GASTROINTESTINAL: Abdomen soft, non-tender, nondistended. Hepatic and splenic margins not palpable. MUSCULOSKELETAL: Extremities without clubbing, cyanosis, or edema. No obvious deformity.NEUROLOGICAL: Very Lethargic - Urinary Catheter Management Indwelling Urethral Catheter Cath placed during this visit: yes Urethral indwelling: Yes Reason for continuing: Chronic Urinary Retention Insertion date: 08/20/17 Insertion time: 17:00 Results - Labs CBC & Chem 7: 10/18/17 08:30 10/18/17 08:30 Laboratory Results - last 24 hr 10/30/17 10/30/17 10/30/17 00:58 06:02 12:18 POC Glucose 164 H 177 H 131 H - Procedures 08/23- intubation 09/03- bronchoscopy, lung biopsy, thoaracentesis 09/08- tracheostomy 09/11- PEG placement Assessment and Plan - Assessment (1) Cervical myelopathy Code(s): G95.9 - Disease of spinal cord, unspecified Status: Acute (2) Respiratory failure Code(s): J96.90 - Respiratory failure, unspecified, unspecified whether with hypoxia or hypercapnia Status: Acute (3) SVT (supraventricular tachycardia) Code(s): I47.1 - Supraventricular tachycardia Status: Acute (4) Lung mass Code(s): R91.8 - Other nonspecific abnormal finding of lung field Status: Acute (5) Diabetes Code(s): E11.9 - Type 2 diabetes mellitus without complications Status: Acute (6) Gout Code(s): M10.9 - Gout, unspecified Status: Acute (7) Spinal stenosis Code(s): M48.00 - Spinal stenosis, site unspecified Status: Acute (8) Dyspnea Code(s): R06.00 - Dyspnea, unspecified Status: Acute - Plan 1. T Bar at 35 % FIO2 and wean to keep sat >92 . 2. Trach lavage and suction PRN 3. Cont Duoneb nebs qid. 4. Will get ABG 5. Tube feeds at 60CC 6. Family wants alt code. 7. Will need F/U CT chest for lung nodule evaluation and Repeat Biopsy when he is stable. 8. Reduce sedation.
--- NOTE | 2017-10-30 22:16 | CT ---
EXAM DATE: 10/30/2017 10:07 PM EDT AGE/SEX: 77 years / Male INDICATIONS: Follow up lung nodules. CLINICAL DATA: This is the patient's initial encounter. Patient reports that signs and symptoms have been present for 1 day and indicates a pain score of 3/10. MEDICAL/SURGICAL HISTORY: Hypertension. Diabetes mellitus type II. Prostate cancer. None. RADIATION DOSE: 6.70 CTDI (mGy) [place] [facility] [place], 08/[place]. [facility] [place]/O [place], 8. . TECHNIQUE: Multiple contiguous axial images were obtained through the chest without contrast. Image s were obtained in suspended respiration using multiple row detector helical technique. Using automa ronny exposure control and adjustment of the mA and/or kV according to patient size, radiation dose was kept as low as reasonably achievable to obtain optimal diagnostic quality images. DICOM format imag e data is available electronically for review and comparison. FINDINGS: Lungs: Interval development of a right apical bleb extending into the anterior aspect of the right u pper lobe. Second parenchymal cyst or bleb in the right middle lobe which is also new from the prior exam. Previously seen 2.5 cm nodule anteriorly in the right upper lobe appears much smaller. Left per ihilar consolidation shows interval improvement with some regional scarring. Chronic appearing fibrot ic changes are now present in the left perihilar distribution. Stable granulomatous type calcificatio n in the left lower lobe. Mediastinum: There is good visualization of the great vessels of the middle mediastinum. No evidenc e of mediastinal or hilar adenopathy/mass. Multiple calcified mediastinal and hilar lymph nodes bilat erally. There is some debris identified in the proximal left mainstem bronchus. Pleurae: Previously seen right pleural effusion is much smaller. Stable moderately large left pleura l effusion. Axillae: Unremarkable. Bony Structures: Unremarkable. Miscellaneous: The examination was extended to include the upper abdomen, and both adrenal glands ar e normal in size and configuration. CONCLUSION: 1. 2.5 cm nodule anteriorly in the right upper lobe seen previously has almost resolved. Interval de velopment of a large right apical and anterior upper lobe bleb as well as a right middle lobe bleb. 2. Stable granulomatous changes in the left lung parenchyma. Stable hilar and mediastinal calcified granulomatous lymph nodes. 3. Right pleural effusion is much smaller when compared to the prior. Moderately large left pleural effusion is basically stable. 4. Consolidation left perihilar distribution seen previously now shows some chronic scarring/fibrosi s. Electronically signed by: Deven Flaherty MD 10/30/2017 10:15 PM EDT
[2017-10-31] MEDS: Insulin NovoLOG Aspart Correctional Sugar Inj SQ SCH ×4 (01:12→19:45)
--- NOTE | 2017-10-31 09:56 | P.PNIM ---
Subjective Interval history: Patient is nonverbal and noninteractive. Discussed with RN. No new issues. Physical Exam Vital signs: Vital Signs 10/30/17 10:38 10/30/17 12:00 10/30/17 16:00 Temperature 98.6 F 98.6 F Pulse Rate 90 80 80 Respiratory Rate 15 22 Blood Pressure 106/66 103/58 L Pulse Oximetry 99 10/30/17 20:00 10/30/17 20:03 10/31/17 00:00 Temperature 96.0 F L 96.5 F L Pulse Rate 111 H 82 103 H Respiratory Rate 20 20 24 Blood Pressure 124/70 151/72 H Pulse Oximetry 88 L 88 L 10/31/17 04:00 10/31/17 07:00 10/31/17 08:00 Temperature 97.2 F L 98.6 F Pulse Rate 116 H 95 H Respiratory Rate 20 20 Blood Pressure 133/80 97/59 L Pulse Oximetry 92 L 92 L 95 10/31/17 08:40 Temperature Pulse Rate 96 H Respiratory Rate 12 Blood Pressure Pulse Oximetry 99 Intake & Output 10/30/17 10/31/17 10/31/17 18:59 06:59 18:59 Intake Total 1300 / 1300 1200 / 1200 Output Total 800 / 800 1250 / 1250 Balance 500 / 500 -50 / -50 Weight 62.1 kg Intake: Oral 0 / 0 0 / 0 Tube Feeding 600 / 600 600 / 600 Water Bolus Amount 600 / 600 600 / 600 Anesthesia Amount 0 / 0 Other 100 / 100 Output: Stool 0 / 0 Urine/Stool Mix 0 / 0 Urine Amount (Catheter) 800 / 800 1250 / 1250 Indwelling Urethral Catheter 800 / 800 1250 / 1250 Other: Other Intake Source Saline Solution Saline Solution Date of Last Bowel Movement 10/30/17 10/30/17 10/15/17 # Bowel Movements 1 # Incontinent Bowel Movements 0 3 Narrative: GENERAL: Elderly male in no acute distress. Cervical collar in place. CARDIOVASCULAR: Normal rate and regular rhythm without murmurs, gallops, or rubs. RESPIRATORY: Diminished breath sounds bilaterally. GASTROINTESTINAL: Abdomen soft, non-tender, non-distended. Normal active bowel sounds MUSCULOSKELETAL: Extremities without cyanosis, or edema. NEURO: Awake and alert. Does not follow commands. - Urinary Catheter Management Indwelling Urethral Catheter Cath placed during this visit: yes Urethral indwelling: Yes Reason for continuing: Chronic Urinary Retention Insertion date: 08/20/17 Insertion time: 17:00 Results - Labs CBC & Chem 7: 10/18/17 08:30 10/18/17 08:30 Laboratory Results - last 24 hr 10/30/17 10/30/17 10/31/17 12:18 17:56 00:25 POC Glucose 131 H 175 H 129 H 10/31/17 07:13 POC Glucose 159 H - Imaging Impressions Chest CT 10/30/17 00:00 CONCLUSION: 1. 2.5 cm nodule anteriorly in the right upper lobe seen previously has almost resolved. Interval development of a large right apical and anterior upper lobe bleb as well as a right middle lobe bleb. 2. Stable granulomatous changes in the left lung parenchyma. Stable hilar and mediastinal calcified granulomatous lymph nodes. 3. Right pleural effusion is much smaller when compared to the prior. Moderately large left pleural effusion is basically stable. 4. Consolidation left perihilar distribution seen previously now shows some chronic scarring/fibrosis. - Procedures 08/23- intubation 09/03- bronchoscopy, lung biopsy, thoracentesis 09/08- tracheostomy 09/11- PEG placement Assessment and Plan - Plan 77-year-old [place] male admitted 08/21/2017, with history of hypertension, gout and diabetes mellitus presenting initially with intermittent pain in his groin, upper thorax and around his back. CT angiogram showed bilateral emphysema and pulmonary nodules with compressive atelectasis of the right lower lobe. Biopsy was done which showed chronic inflammation reactive fibroblastic tissue. Patient was also found to have severe spinal stenosis, status post laminectomy. Patient's hospital stay was complicated by septic shock secondary to healthcare associated pneumonia and C. difficile colitis. Severe cervical spinal stenosis Status post C2 hemicolectomy, C3 through C5 laminoplasty with quadriplegia and acute spinal injury MRI C-spine 09/15: Focal severe spinal canal stenosis at C4-5. Moderate diffuse broad-based bulging at C3-4 with some mild increased signal in the spinal cord at this level. Moderate spinal canal stenosis at C6-C7 Bilateral facet arthritis at multiple levels. Head CT 08/23: 2 questionable tiny focal hemorrhages. MRI of brain 08/26 chronic small vessel ischemic and atrophic changes. EEG 09/03 revealed severe encephalopathy. No epileptiform activity Neurosurgery Dr. Victor consulted, Poor chance of neurological recovery for him, recent discussion with Dr. Smith and son, no further surgical intervention per son. Neurology Dr. Carvalho. Patient treated with steroids per neurology recommendations. Completed the course of treatment. Hypertension- CAD A-Fib continue metoprolol & digoxin (was previously on amiodarone, was stopped due to bradycardia) Acute on chronic respiratory failure secondary to COPD CT pulmonary angiogram revealed multiple masses. Lung mass biopsied on August 28 showed CHRONIC INFLAMMATORY AND REACTIVE FIBROBLASTIC TISSUE CONTAINING ENTRAPPED BENIGN EPITHELIUM. Second biopsy on hold due to risk of decompensation. Pulmonology has advised against doing a second biopsy given significant risk. Repeat CT scan in 4 weeks, if mass decrease in size more likely that this is infectious etiology malignancy. Pulmonology following. Severe malnutrition Tolerating tube feeds along with a diet Urinary retention Continue Larson Diabetes Continue sliding scale Levemir on hold Constipation Continue stool softener DVT proph: SCDs . GI: lansoprazole Discharge Planning: Awaiting placement.
[2017-10-31] MEDS: QUEtiapine 25 MG Tablet PO SCH ×2 (10:13→20:36)
[2017-10-31] MEDS: Metoprolol Tartrate 50 MG Tablet PO SCH ×2 (10:13→20:36)
[2017-10-31] MEDS: Insulin Detemir Inj 1,000 UNIT/10 ML Vial SQ SCH ×2 (10:14→20:47)
[2017-10-31] MEDS: LORazepam 1 MG Tablet G-TUBE PRN ×2 (11:26→20:36)
--- NOTE | 2017-10-31 11:26 | P.DIET ---
Nutritional Evaluation Type of nutrition evaluation: follow-up Nutrition consult regarding: Tube Feeding Nutrition screening: Pressure Injury Subjective Subjective Comments: Pt speaks only Mandarin. Objective - Diagnosis Pulmonary Mass, Pulmonary Infiltrates - Objective % IBW: 132 (IBW = 118#) Body Weight Used for Calculations: Upper end of IBW (59 kg) Energy Needs - Lower Range (kCal/kg): 30 Energy Needs - Upper Range (kCal/kg): 35 Lower Limit kCal/kg (kCals): 1,770 Upper Limit kCal/kg (kCals): 2,065 Lower Limit Protein Factor (Grams per Kg): 1.2 Upper Limit Protein Factor (Grams per Kg): 1.5 Lower Protein Needs (Protein): 71 Upper Protein Needs (Protein): 89 Dietitian Reviewed in Medical Record: Curent medications, Intake & Output, Labs , Medical history, Tube feeding, Wound/DTI Diet Order: TFing only Speech Therapy Recommendations: Yes (Strict NPO) Objective Comments: Hx includes HTN, DM, Gout, TB (10 years ago) 09/11 PEG placed 09/19 C3-5 laminoplasty Feeding - Current Tube Feeding Tube Feeding Product: Glucerna 1.5 Tube Feeding Method: Pump Tube Feeding Rate: 60 (mls/hr) Current kCals Provided by Tube Feedin,980 Current Protein Provided by Tube Feeding (gPRO): 109 Current Free H2O Provided (m/l): 1,002 Assessment Assessment: No acute changes. Continues to tolerate TF of Glucerna 1.5 @ 60 mls/hr., providing more than calculated needs at this time but appropriate due to dx. Pts. wt. has trended down, pt. is still greater than IBW at this time, monitor. +UOP and +BM. Pt is functionally quadriparetic. Continue current POC and TFing at current goal rate. Continue to monitor TFing tolerance, labs and skin. Recommendations: 1. Continue current POC and TFing at current goal rate. 2. Continue to monitor TFing tolerance, labs and skin. Dietitian to Monitor: Lab values, Intake & Output, Tube feeding tolerance, Weight change, Wound/skin status, Medical course
--- NOTE | 2017-10-31 12:27 | P.PNPAL ---
Reason for Visit Reason for visit: a. To assist with evaluation and management of symptoms including: dyspnea, pain, b. To assist medical decision maker(s) with: better understanding of current medical conditions; weighing benefits/burdens of medical treatment options; making medical treatment decisions. Subjective Subjective/Interval History: Pt no acute changes. left ext moves the best, can wiggle right toe, and move right hand. could not elicit moviemnt of left lower ext. He sleepy, when awake some anxiety noted, want to talk. Mostly sleeping on my visit. No family at bedside today. Discussed with pulmonology yesterday and was amenable to order CT. Ct did show mass has decrease in size. There is chronic lung disease. Family/Friend Interactions: Spoke with son. Discussed CT result. Remephasize is current lung condition that although its not cancer, his chronic lung disease is hindering his progression. Discussed quality of life. Discussed hospice. No change of goals at this time. Advance Directives Living Will: Never completed Health Care Surrogate: Never completed Durable Power of Penal Officer: Never completed Objective Vital Signs: Vital Signs 10/30/17 16:00 10/30/17 20:00 10/30/17 20:03 Temperature 98.6 F 96.0 F L Pulse Rate 80 111 H 82 Respiratory Rate 22 20 20 Blood Pressure 103/58 L 124/70 Pulse Oximetry 88 L 10/31/17 00:00 10/31/17 04:00 10/31/17 07:00 Temperature 96.5 F L 97.2 F L Pulse Rate 103 H 116 H Respiratory Rate 24 20 Blood Pressure 151/72 H 133/80 Pulse Oximetry 88 L 92 L 92 L 10/31/17 08:00 10/31/17 08:40 Temperature 98.6 F Pulse Rate 95 H 96 H Respiratory Rate 20 12 Blood Pressure 97/59 L Pulse Oximetry 95 99 Intake & Output 10/30/17 10/31/17 10/31/17 18:59 06:59 18:59 Intake Total 1300 / 1300 1200 / 1200 Output Total 800 / 800 1250 / 1250 Balance 500 / 500 -50 / -50 Weight 62.1 kg Intake: Oral 0 / 0 0 / 0 Tube Feeding 600 / 600 600 / 600 Water Bolus Amount 600 / 600 600 / 600 Anesthesia Amount 0 / 0 Other 100 / 100 Output: Stool 0 / 0 Urine/Stool Mix 0 / 0 Urine Amount (Catheter) 800 / 800 1250 / 1250 Indwelling Urethral Catheter 800 / 800 1250 / 1250 Other: Other Intake Source Saline Solution Saline Solution Date of Last Bowel Movement 10/30/17 10/30/17 10/15/17 # Bowel Movements 1 # Incontinent Bowel Movements 0 3 Physical Exam: CONSTITUTIONAL/GENERAL: This is an adequately nourished patient , t bar. TUBES/LINES/DRAINS: trach- t piece, ceja, PIV x2 BUE, SKIN: No jaundice, rashes, or lesions. No wounds seen anteriorly. skin warm/ dry EYES: no eye opening. No injection or drainage. Fundi not examined. ENT: Nose without bleeding or purulent drainage. Limited oropharynx exam 2/2 + T piece CARDIOVASCULAR: RRR without murmurs. No JVD. Peripheral pulses symmetric. Trace periph edema to hands. RESPIRATORY/CHEST: unlabored respirations Coarse breath sounds. Diminished sounds bases. GASTROINTESTINAL: Abdomen soft, non-tender, nondistended. No hepato-splenomegaly , or palpable masses. Bowel sounds present. TF infusing peg MUSCULOSKELETAL: Trace +BUE edema. +soft restraints lower ext. No mottling or clubbing. NEUROLOGICAL: can wiggle toes. Can grab finger on command on left upper ext. Some movement of right upper and lower ext. cannot elicit left lower ext movement today. 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 Right middle lobe 2.7 x 2.2 x 7's. Spiculated. Left lingula is 3.4 x 3.20 cm. COPD (2) SVT (supraventricular tachycardia) (3) Lung mass Comment: revealed 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 Right middle lobe 2.7 x 2.2 x 7's. Spiculated. Left lingula is 3.4 x 3.20 cm. 1st biopsy did not show malignancy. 2nd biopsy on hold to risk of decompensation. Pulmonlogy advise against 2nd biopsy given risk. Recommends repeat CT in 4 weeks. If mass decrease in size, more possiblility its infections rather than malignancy. (4) Diabetes (5) Gout (6) Spinal stenosis - Symptom Scale (1) Dyspnea 0-10 Scale: Unable to quantify (2) Pain 0-10 Scale: Unable to quantify Pertinent Non-Medical Issues: Psychosocial: Retired. He was living at home with his Tommie Gutierrez and his son "Cristina Palmer. . Speaks Mandarin only. . Spiritual: unk at this time Legal: Per [place] statutes legal decision maker proxy is pt's . It appears she may have been deferring to son but has been present for major decisions. Family works together Ethical issues impacting care: no issues identified Important Contacts: Spencer Reilly [phone] Son "Cristina Palmer [phone] Prognosis: 77 yo underlying diastolic heart failure, severe spinal stenosis (s/p surgery) , lung disease and DM. Lung mass/nodule from recent CT(10/30) has decrease in size, so unlikely malignancy, despite no 2nd biopsy. Pt has made some progress neurologically, wiggling his toes, and movement of upper ext a month ago, but since then has not progrressed. Prognosis for recovery may be impeded risk for infections bedsores, deconditioning and various complications remains. Overall it is poor. Code Status: Alternative Code Plan: CODE STATUS - Alternate code. Yes to intubation and mechanical ventilation. no to cpr/ shock/ acls drugs. Capacity- he does not appears to be able to weigh the risk and benefits of decision on my visit. Alertness has improved. He does not appear to have insight or can weigh the risk and benefits. Remains lethargic and tired. LEGAL DECISION MAKER - per [place] statutes is proxy , who defers decisions to son, [place], family all working together. Family meetings- multiple family meetings. They have also met with hospice ( [place](son_ and pt's together). At times I have met with alone, at times with Humble (son). [facility] had been use for family meetings. Goals are Aggressive short of alter code (no to cpr/ acls/ shock) Follow up CT was pefromed. No family at bedside today, no answer from son's phone. I will follow up with them next week to review CT result. I do not anticipate any change of goals. Appreciate pulmonology input. SYMPTOMS * shortness of breath -. Questionable malignancy, hx remote TB. O. Status post tracheostomy. risk of decompensation. Family amenable to transferring back to icu, if respiratory status clinically worsen. * pain - ?cause? presented with right side and thoracic pain. imaging showing lung nodules. buttock wound. BX benign, ?repeat. appears comfortable, no signs of pain on exam. Does no appear to be in pain today. Palliative care will continue to follow during hospital course as condition evolves to assist patient/decision maker with understanding of medical conditions, benefits/burdens of treatment options, clarification of goals of treatment, and will assist with symptoms of palliative concern. Attestation Attestation: To help prompt me to consider important information that might be impacting today's encounter and assessment, information from prior notes written by myself or my colleagues may have been "brought forward" into today's note. My signature on this note, however, is an attestation that I personally performed the exam, history, and/or decision-making noted today, and, unless otherwise indicated, the interactions with patient, family, and staff as well as the review of records all occurred today. I also attest that the listed assessment and stated plan reflect my best clinical judgment today based on the combination of historical information, prior notes, and today's exam/ interactions. When time spent is documented, it refers only to time spent today by the signer, or if indicated, combined time spent today by collaborating physician/nurse practitioner.
--- NOTE | 2017-10-31 18:42 | P.PN ---
Subjective Interval history: Remains sleepy and on a T bar at 30 %. CT chest showed the RUL mass to be reduced in size. Physical Exam Vital signs: Vital Signs 10/30/17 20:00 10/30/17 20:03 10/31/17 00:00 Temperature 96.0 F L 96.5 F L Pulse Rate 111 H 82 103 H Respiratory Rate 20 20 24 Blood Pressure 124/70 151/72 H Pulse Oximetry 88 L 88 L 10/31/17 04:00 10/31/17 07:00 10/31/17 08:00 Temperature 97.2 F L 98.6 F Pulse Rate 116 H 95 H Respiratory Rate 20 20 Blood Pressure 133/80 97/59 L Pulse Oximetry 92 L 92 L 95 10/31/17 08:40 10/31/17 12:00 10/31/17 16:19 Temperature 96.8 F L Pulse Rate 96 H 85 Respiratory Rate 12 16 Blood Pressure 109/68 Pulse Oximetry 99 93 L Intake & Output 10/30/17 10/31/17 10/31/17 18:59 06:59 18:59 Intake Total 1300 / 1300 1200 / 1200 Output Total 800 / 800 1250 / 1250 Balance 500 / 500 -50 / -50 Weight 62.1 kg Intake: Oral 0 / 0 0 / 0 Tube Feeding 600 / 600 600 / 600 Water Bolus Amount 600 / 600 600 / 600 Anesthesia Amount 0 / 0 Other 100 / 100 Output: Stool 0 / 0 Urine/Stool Mix 0 / 0 Urine Amount (Catheter) 800 / 800 1250 / 1250 Indwelling Urethral Catheter 800 / 800 1250 / 1250 Other: Other Intake Source Saline Solution Saline Solution Date of Last Bowel Movement 10/30/17 10/30/17 10/15/17 # Bowel Movements 1 # Incontinent Bowel Movements 0 3 Narrative: GENERAL: Elderly male in no acute distress. Cervical collar in place. CARDIOVASCULAR: Normal rate and regular rhythm without murmurs, gallops, or rubs. RESPIRATORY: Diminished breath sounds bilaterally.Occ wheeze heard. GASTROINTESTINAL: Abdomen soft, non-tender, non-distended. Normal active bowel sounds MUSCULOSKELETAL: Extremities without cyanosis, or edema.Muscle wasting noted. NEURO: Awake and alert. Does not follow commands. - Urinary Catheter Management Indwelling Urethral Catheter Cath placed during this visit: yes Urethral indwelling: Yes Reason for continuing: Chronic Urinary Retention Insertion date: 08/20/17 Insertion time: 17:00 Results - Labs CBC & Chem 7: 10/18/17 08:30 10/18/17 08:30 Laboratory Results - last 24 hr 10/31/17 10/31/17 10/31/17 00:25 07:13 12:16 POC Glucose 129 H 159 H 163 H 10/31/17 17:40 POC Glucose 87 - Imaging Impressions Chest CT 10/30/17 00:00 CONCLUSION: 1. 2.5 cm nodule anteriorly in the right upper lobe seen previously has almost resolved. Interval development of a large right apical and anterior upper lobe bleb as well as a right middle lobe bleb. 2. Stable granulomatous changes in the left lung parenchyma. Stable hilar and mediastinal calcified granulomatous lymph nodes. 3. Right pleural effusion is much smaller when compared to the prior. Moderately large left pleural effusion is basically stable. 4. Consolidation left perihilar distribution seen previously now shows some chronic scarring/fibrosis. - Procedures 08/23- intubation 09/03- bronchoscopy, lung biopsy, thoracentesis 09/08- tracheostomy 09/11- PEG placement Assessment and Plan - Assessment (1) Cervical myelopathy Code(s): G95.9 - Disease of spinal cord, unspecified Status: Acute (2) Respiratory failure Code(s): J96.90 - Respiratory failure, unspecified, unspecified whether with hypoxia or hypercapnia Status: Acute (3) SVT (supraventricular tachycardia) Code(s): I47.1 - Supraventricular tachycardia Status: Acute (4) Lung mass Code(s): R91.8 - Other nonspecific abnormal finding of lung field Status: Acute (5) Diabetes Code(s): E11.9 - Type 2 diabetes mellitus without complications Status: Acute (6) Gout Code(s): M10.9 - Gout, unspecified Status: Acute (7) Spinal stenosis Code(s): M48.00 - Spinal stenosis, site unspecified Status: Acute (8) Dyspnea Code(s): R06.00 - Dyspnea, unspecified Status: Acute - Plan 1. Cont T Bar at 35 % FIO2. 2. Trach lavage and suction PRN 3. Cont Duoneb nebs qid. 4.Reduce sedation. 5. Tube feeds at 60CC 6. PT evaluation. 7. Will get F/U Chest CT in 3 mths.
[2017-11-01] MEDS: Insulin NovoLOG Aspart Correctional Sugar Inj SQ SCH ×4 (01:06→17:50)
[2017-11-01] MEDS: LORazepam 1 MG Tablet G-TUBE PRN ×2 (06:39→14:50)
[2017-11-01] MEDS: Senna/Docusate Sodium 8.6/50 MG Tablet PO PRN (08:46)
[2017-11-01] MEDS: Metoprolol Tartrate 50 MG Tablet PO SCH ×2 (08:46→21:15)
[2017-11-01] MEDS: QUEtiapine 25 MG Tablet PO SCH ×2 (08:47→21:15)
[2017-11-01] MEDS: Insulin Detemir Inj 1,000 UNIT/10 ML Vial SQ SCH ×2 (08:47→21:41)
--- NOTE | 2017-11-01 15:11 | P.PNIM ---
Subjective Interval history: family would like SNF placement, d/c Dr. Garcia, no overnight events but patient still puling trach and lines Physical Exam Vital signs: Vital Signs 10/31/17 16:00 10/31/17 16:19 10/31/17 20:00 Temperature 97.8 F 97.8 F Pulse Rate 80 98 H Respiratory Rate 16 20 Blood Pressure 95/58 L 119/77 Pulse Oximetry 93 L 98 10/31/17 20:12 11/01/17 00:30 11/01/17 04:00 Temperature 98.3 F 98 F Pulse Rate 60 90 113 H Respiratory Rate 18 24 20 Blood Pressure 123/74 128/77 Pulse Oximetry 98 95 98 11/01/17 07:58 11/01/17 09:18 11/01/17 12:00 Temperature 98.1 F Pulse Rate 100 H 87 86 Respiratory Rate 22 20 18 Blood Pressure 124/72 98/58 L Pulse Oximetry 95 97 98 11/01/17 14:39 Temperature Pulse Rate 80 Respiratory Rate 20 Blood Pressure Pulse Oximetry Intake & Output 10/31/17 11/01/17 11/01/17 18:59 06:59 18:59 Intake Total 1300 / 1300 1200 / 1200 Output Total 900 / 900 750 / 750 Balance 400 / 400 450 / 450 Weight 65.4 kg Intake: Oral 0 / 0 0 / 0 Tube Feeding 600 / 600 600 / 600 Water Bolus Amount 600 / 600 600 / 600 Anesthesia Amount 0 / 0 Other 100 / 100 Output: Urine 750 / 750 Stool 0 / 0 Urine/Stool Mix 0 / 0 Estimated Blood Loss 300 / 300 Urine Amount (Catheter) 600 / 600 Indwelling Urethral Catheter 600 / 600 Other: Other Intake Source Saline Solution Date of Last Bowel Movement 10/31/17 10/31/17 10/31/17 # Bowel Movements 1 # Incontinent Bowel Movements 2 1 Narrative: GENERAL: Elderly male in no acute distress. Cervical collar in place. CARDIOVASCULAR: Normal rate and regular rhythm without murmurs, gallops, or rubs. RESPIRATORY: Diminished breath sounds bilaterally. GASTROINTESTINAL: Abdomen soft, non-tender MUSCULOSKELETAL: Extremities without cyanosis, or edema. NEURO: Awake and alert. Does not follow commands. - Urinary Catheter Management Indwelling Urethral Catheter Cath placed during this visit: yes Urethral indwelling: Yes Reason for continuing: Acute urinary retention Insertion date: 08/20/17 Insertion time: 17:00 Results - Labs CBC & Chem 7: 10/18/17 08:30 10/18/17 08:30 Laboratory Results - last 24 hr 10/31/17 11/01/17 11/01/17 17:40 00:32 05:56 POC Glucose 87 128 H 126 H 11/01/17 12:23 POC Glucose 186 H - Procedures 08/23- intubation 09/03- bronchoscopy, lung biopsy, thoracentesis 09/08- tracheostomy 09/11- PEG placement Assessment and Plan - Plan 77-year-old [place] male admitted 08/21/2017, with history of hypertension, gout and diabetes mellitus presenting initially with intermittent pain in his groin, upper thorax and around his back. CT angiogram showed bilateral emphysema and pulmonary nodules with compressive atelectasis of the right lower lobe. Biopsy was done which showed chronic inflammation reactive fibroblastic tissue. Patient was also found to have severe spinal stenosis, status post laminectomy. Patient's hospital stay was complicated by septic shock secondary to healthcare associated pneumonia and C. difficile colitis. Severe cervical spinal stenosis Status post C2 hemicolectomy, C3 through C5 laminoplasty with quadriplegia and acute spinal injury MRI C-spine 09/15: Focal severe spinal canal stenosis at C4-5. Moderate diffuse broad-based bulging at C3-4 with some mild increased signal in the spinal cord at this level. Moderate spinal canal stenosis at C6-C7 Bilateral facet arthritis at multiple levels. Head CT 08/23: 2 questionable tiny focal hemorrhages. MRI of brain 08/26 chronic small vessel ischemic and atrophic changes. EEG 09/03 revealed severe encephalopathy. No epileptiform activity Neurosurgery Dr. Victor consulted, Poor chance of neurological recovery for him, recent discussion with Dr. Smith and son, no further surgical intervention per son. Neurology Dr. Carvalho. Patient treated with steroids per neurology recommendations. Completed the course of treatment. Hypertension- CAD A-Fib continue metoprolol & digoxin (was previously on amiodarone, was stopped due to bradycardia) Acute on chronic respiratory failure secondary to COPD CT pulmonary angiogram revealed multiple masses. Lung mass biopsied on August 28 showed CHRONIC INFLAMMATORY AND REACTIVE FIBROBLASTIC TISSUE CONTAINING ENTRAPPED BENIGN EPITHELIUM. Second biopsy on hold due to risk of decompensation. Pulmonology has advised against doing a second biopsy given significant risk. Repeat CT done 10/30, mass has decreased in size, likely reactive/inflammatory. Dr. Garcia will d/w Son and recommends repeat CT scan in 3 months. d/w Dr. Garcia. Severe malnutrition Tolerating tube feeds along with a diet Urinary retention Continue Larson Diabetes Continue sliding scale Levemir on hold Constipation Continue stool softener Delirium/sun-downing - increase seroquel DVT proph: SCDs . GI: lansoprazole Discharge Planning: Awaiting placement.
[2017-11-01] MEDS: Temazepam 15 MG Capsule PO PRN (21:14)
[2017-11-02] MEDS: Insulin NovoLOG Aspart Correctional Sugar Inj SQ SCH ×4 (00:52→21:16)
[2017-11-02] MEDS: LORazepam 1 MG Tablet G-TUBE PRN ×2 (04:28→20:02)
[2017-11-02] MEDS: Insulin Detemir Inj 1,000 UNIT/10 ML Vial SQ SCH ×2 (08:24→21:15)
[2017-11-02] MEDS: Metoprolol Tartrate 50 MG Tablet PO SCH ×2 (08:24→21:10)
[2017-11-02] MEDS: QUEtiapine 25 MG Tablet PO SCH ×2 (08:25→21:15)
--- NOTE | 2017-11-02 09:26 | P.PNIM ---
Subjective Interval history: FOLLOWS NO COMMANDS STILL IN SOFT RESTRAINTS AND CERVICAL HARD COLLAR FAMILY WANT SNF Physical Exam Vital signs: Vital Signs 11/01/17 12:00 11/01/17 14:39 11/01/17 16:00 Temperature 97.8 F Pulse Rate 86 80 98 H Respiratory Rate 18 20 18 Blood Pressure 98/58 L 91/60 L Pulse Oximetry 98 98 11/01/17 19:35 11/01/17 20:00 11/02/17 00:00 Temperature 98.2 F 97.5 F L Pulse Rate 98 H 98 H 71 Respiratory Rate 22 20 20 Blood Pressure 119/73 98/63 L Pulse Oximetry 98 100 99 11/02/17 04:00 11/02/17 07:00 11/02/17 08:00 Temperature 98.7 F 98 F Pulse Rate 99 H 90 Respiratory Rate 20 18 Blood Pressure 142/53 H 114/63 Pulse Oximetry 98 98 98 Intake & Output 11/01/17 11/02/17 11/02/17 18:59 06:59 18:59 Intake Total 1385 / 1385 1125 / 1125 Output Total 1150 / 1150 1050 / 1050 Balance 235 / 235 75 / 75 Weight 65.6 kg Intake: Oral 0 / 0 0 / 0 Tube Feeding 525 / 525 525 / 525 Tube Irrigant 160 / 160 Water Bolus Amount 600 / 600 600 / 600 Anesthesia Amount 0 / 0 Other 100 / 100 Output: Urine 850 / 850 750 / 750 Stool 0 / 0 Urine/Stool Mix 0 / 0 Estimated Blood Loss 300 / 300 300 / 300 Other: Other Intake Source Saline Solution Date of Last Bowel Movement 10/31/17 11/02/17 11/02/17 # Bowel Movements 1 # Incontinent Bowel Movements 1 1 Narrative: GENERAL: No acute distress, Cervical collar in place. ORAL MUCOSA IS MOIST CARDIOVASCULAR: Regular rate and rhythm, no murmurs. S1, S2 NO S3 OR SR RESPIRATORY: Diminished breath sounds bilaterally. GASTROINTESTINAL: Abdomen soft, non-tender MUSCULOSKELETAL: Extremities without cyanosis, or edema. NEURO: Awake and alert. Does not follow commands. - Urinary Catheter Management Indwelling Urethral Catheter Cath placed during this visit: yes Urethral indwelling: Yes Reason for continuing: Acute urinary retention Insertion date: 08/20/17 Insertion time: 17:00 Results - Labs CBC & Chem 7: 10/18/17 08:30 10/18/17 08:30 Laboratory Results - last 24 hr 11/01/17 11/01/17 11/02/17 12:23 17:46 00:47 POC Glucose 186 H 132 H 162 H 11/02/17 05:59 POC Glucose 96 - Procedures 08/23- intubation 09/03- bronchoscopy, lung biopsy, thoracentesis 09/08- tracheostomy 09/11- PEG placement Assessment and Plan - Plan 10/20/17. Patient seen and examined. No acute changes. Patient's heart rate has been elevated up to the 120s, as of yesterday. Will increase metoprolol. 8-7 SEEN EXAMINED In summary this is a 77-year-old man with a medical history significant for hypertension, gout, diabetes who initially presented with pain in his groin and back. CT angiogram showed bilateral emphysema and pulmonary nodules with compressive atelectasis of right lower lobe. Patient underwent a biopsy which showed chronic inflammation, and reactive fibroblastic tissue. He was also found to have significant spinal stenosis and underwent a laminectomy by neurosurgery. The patient's hospital stay was complicated by septic shock secondary to hospital-acquired pneumonia and C. difficile. 10/19: Patient desat to 85%. Patient was lavaged and suctioned by respiratory, moderate amount of mucous removed in addition to a blue liquid. Patient was bagged to trach, saturated at 100%, then transitioned back to trach and patient saturated at 98% on 40%FI02. He was notably more comfortable. I discussed case with nurse and respiratory therapist. Desat likely due to mucous plug or from whatever he was given by mouth. (Noted to have passed his swallow eval). Patient to remain NPO. Will watch closely. Will make sure pulmonology is updated. Severe cervical spinal stenosis Status post C2 hemicolectomy, C3 through C5 laminoplasty with quadriplegia and acute spinal injury MRI C-spine 09/15: Focal severe spinal canal stenosis at C4-5. Moderate diffuse broad-based bulging at C3-4 with some mild increased signal in the spinal cord at this level. Moderate spinal canal stenosis at C6-C7 Bilateral facet arthritis at multiple levels. Head CT 08/23: 2 questionable tiny focal hemorrhages. MRI of brain 08/26 chronic small vessel ischemic and atrophic changes. EEG 09/03 revealed severe encephalopathy. No epileptiform activity Neurosurgery Dr. Victor consulted, Poor chance of neurological recovery for him, recent discussion with Dr. Smith and son, no further surgical intervention per son. Neurology Dr. Carvalho. Patient treated with steroids per neurology recommendations. Completed the course of treatment. = No changes. Continue to monitor. Hypertension-MEDS ADJUSTED CAD A-Fib continue metoprolol & digoxin (was previously on amiodarone, was stopped due to bradycardia) BP is stable = 8/6. Patient still with heart rate excursions up to the 120s, most recently yesterday. Patient's last dose of digoxin was over a month ago. Will discontinue. Increase metoprolol dose. Acute on chronic respiratory failure secondary to COPD CT pulmonary angiogram revealed multiple masses. Lung mass biopsied on August 28 showed CHRONIC INFLAMMATORY AND REACTIVE FIBROBLASTIC TISSUE CONTAINING ENTRAPPED BENIGN EPITHELIUM. Second biopsy on hold due to risk of decompensation. Pulmonology has advised against doing a second biopsy given significant risk. Repeat CT scan in 4 weeks, if mass decrease in size more likely that this is infectious etiology malignancy. Pulmonology following: Continue Levaquin 500 mg daily 7 (10/15-10/21)days for left base infiltrate, trach lavage and suction as needed, continue to collar at 35% FiO2 and wean to keep sats greater than 92 Severe malnutrition Tolerating tube feeds ALSO BEING FED A DIET Urinary retention Larson Diabetes Continue sliding scale Levemir on hold Severe Sepsis: resolved Trach Site infection: Resolved HCAP: resolved C. 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 Palliative care is following the patient and has discussed met with the patient's family. Discussion of hospice and comfort measures as been discussed with the family have met with hospice. declines at this time. Son also has declined hospice at this time. FAMILY WANTS AGGRESSIVE TREATMENT SNF
[2017-11-02] MEDS: Hyoscyamine Inj 0.5 MG/ML Ampul IV.PUSH PRN (20:02)
[2017-11-03] MEDS: Temazepam 15 MG Capsule PO PRN (00:21)
[2017-11-03] MEDS: Insulin NovoLOG Aspart Correctional Sugar Inj SQ SCH ×4 (00:21→18:29)
[2017-11-03] MEDS: Metoprolol Tartrate 50 MG Tablet PO SCH ×2 (09:23→20:54)
[2017-11-03] MEDS: QUEtiapine 25 MG Tablet PO SCH ×2 (09:23→20:54)
[2017-11-03] MEDS: Insulin Detemir Inj 1,000 UNIT/10 ML Vial SQ SCH ×2 (09:24→20:58)
--- NOTE | 2017-11-03 10:33 | P.PN ---
Subjective Interval history: up on Abbey chair tolerating tube feedings needs suctioning- - staff make sure of this no diarrhea Physical Exam Vital signs: Vital Signs 11/02/17 12:00 11/02/17 15:45 11/02/17 19:42 Temperature 98.2 F 98.3 F Pulse Rate 82 98 H Respiratory Rate 18 18 Blood Pressure 92/64 L 98/64 L Pulse Oximetry 98 98 93 L 11/02/17 19:43 11/02/17 20:00 11/03/17 00:00 Temperature 97.6 F 98.4 F Pulse Rate 111 H 111 H 111 H Respiratory Rate 20 18 18 Blood Pressure 119/69 113/69 Pulse Oximetry 94 L 97 11/03/17 04:00 11/03/17 06:30 11/03/17 10:14 Temperature 98.0 F Pulse Rate 112 H 98 H Respiratory Rate 18 16 Blood Pressure 141/73 H Pulse Oximetry 95 97 98 Intake & Output 11/02/17 11/03/17 11/03/17 18:59 06:59 18:59 Intake Total 1385 / 1385 1470 / 1470 Output Total 1050 / 1050 2450 / 2450 Balance 335 / 335 -980 / -980 Intake: Oral 0 / 0 Tube Feeding 525 / 525 770 / 770 Tube Irrigant 160 / 160 100 / 100 Water Bolus Amount 600 / 600 600 / 600 Anesthesia Amount 0 / 0 Other 100 / 100 Output: Urine 750 / 750 2450 / 2450 Stool 0 / 0 0 / 0 Urine/Stool Mix 0 / 0 Estimated Blood Loss 300 / 300 Other: Other Intake Source Saline Solution Date of Last Bowel Movement 11/02/17 11/02/17 # Bowel Movements 1 # Incontinent Bowel Movements 1 Narrative: up in chair , in no acute distress anicteric tracehstomy in place Regular rate and rhythm, no murmurs. S1, S2 NO S3 OR SR Diminished breath sounds bilaterally. Abdomen soft, non-tender, PEG site good Extremities without cyanosis, or edema. ceja in place Awake and alert. Does not follow commands. - Urinary Catheter Management Indwelling Urethral Catheter Cath placed during this visit: yes Urethral indwelling: Yes Reason for continuing: Acute urinary retention Insertion date: 08/20/17 Insertion time: 17:00 Results - Labs CBC & Chem 7: 10/18/17 08:30 10/18/17 08:30 Laboratory Results - last 24 hr 11/02/17 11/02/17 11/02/17 12:14 17:18 23:45 POC Glucose 127 H 150 H 151 H 11/03/17 05:23 POC Glucose 111 H Microbiology 10/31/17 10:15 Sputum - Endotracheal Acid Fast Bacilli Smear - Final No acid fast bacilli seen - Procedures 08/23- intubation 09/03- bronchoscopy, lung biopsy, thoracentesis 09/08- tracheostomy 09/11- PEG placement Assessment and Plan - Plan In summary this is a 77-year-old man with a medical history significant for hypertension, gout, diabetes who initially presented with pain in his groin and back. CT angiogram showed bilateral emphysema and pulmonary nodules with compressive atelectasis of right lower lobe. Patient underwent a biopsy which showed chronic inflammation, and reactive fibroblastic tissue. He was also found to have significant spinal stenosis and underwent a laminectomy by neurosurgery. The patient's hospital stay was complicated by septic shock secondary to hospital-acquired pneumonia and C. difficile. 10/19: Patient desat to 85%. Patient was lavaged and suctioned by respiratory, moderate amount of mucous removed in addition to a blue liquid. Patient was bagged to trach, saturated at 100%, then transitioned back to trach and patient saturated at 98% on 40%FI02. He was notably more comfortable. I discussed case with nurse and respiratory therapist. Desat likely due to mucous plug or from whatever he was given by mouth. (Noted to have passed his swallow eval). Patient to remain NPO. Will watch closely. Will make sure pulmonology is updated. Severe cervical spinal stenosis Status post C2 hemicolectomy, C3 through C5 laminoplasty with quadriplegia and acute spinal injury MRI C-spine 09/15: Focal severe spinal canal stenosis at C4-5. Moderate diffuse broad-based bulging at C3-4 with some mild increased signal in the spinal cord at this level. Moderate spinal canal stenosis at C6-C7 Bilateral facet arthritis at multiple levels. Head CT 08/23: 2 questionable tiny focal hemorrhages. MRI of brain 08/26 chronic small vessel ischemic and atrophic changes. EEG 09/03 revealed severe encephalopathy. No epileptiform activity Neurosurgery Dr. Victor consulted, Poor chance of neurological recovery for him, recent discussion with Dr. Smith and son, no further surgical intervention per son. Neurology Dr. Carvalho. Patient treated with steroids per neurology recommendations. Completed the course of treatment. = No changes. Continue to monitor. Hypertension-MEDS ADJUSTED CAD A-Fib- in SR continue metoprolol & digoxin (was previously on amiodarone, was stopped due to bradycardia) BP is stable = 10/20. Patient still with heart rate excursions up to the 120s, most recently yesterday. Patient's last dose of digoxin was over a month ago. Will discontinue. Increase metoprolol dose. Acute on chronic respiratory failure secondary to COPD CT pulmonary angiogram revealed multiple masses. Lung mass biopsied on August 28 showed CHRONIC INFLAMMATORY AND REACTIVE FIBROBLASTIC TISSUE CONTAINING ENTRAPPED BENIGN EPITHELIUM. Second biopsy on hold due to risk of decompensation. Pulmonology has advised against doing a second biopsy given significant risk. Repeat CT scan in 4 weeks, if mass decrease in size more likely that this is infectious etiology malignancy. Pulmonology following: Continue Levaquin 500 mg daily 7 (10/15-10/21)days for left base infiltrate, trach lavage and suction as needed, continue to collar at 35% FiO2 and wean to keep sats greater than 92 Severe malnutrition Tolerating tube feeds- gucerna 1.5 cc 50 cc/hr ALSO BEING FED A DIET Urinary retention Urinary stricture- ceja was placed by urology 08/20 Ceja due to be change Diabetes Melitus- good readings Continue sliding scale on lantus 5 units bid Severe Sepsis: resolved Trach Site infection: Resolved HCAP: resolved C. 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 Palliative care is following the patient and has discussed met with the patient's family. Discussion of hospice and comfort measures as been discussed with the family have met with hospice. declines at this time. Son also has declined hospice at this time. FAMILY WANTS AGGRESSIVE TREATMENT SNF This is a 77-year-old [place] male admitted 08/21/2017, with history of hypertension, gout and diabetes mellitus presenting initially with intermittent pain in his groin, upper thorax and around his back. CT angiogram showed bilateral emphysema and pulmonary nodules with compressive atelectasis of the right lower lobe. Biopsy was done which showed chronic inflammation reactive fibroblastic tissue. Patient was also found to have severe spinal stenosis, status post laminectomy. Patient's hospital stay was complicated by septic shock secondary to healthcare associated pneumonia and C. difficile colitis. Severe cervical spinal stenosis, status post C2 hemilaminectomy, C3 through 5 lamina plasty with quadriplegia and acute spinal injury. Toxic metabolic encephalopathy. - MRI C-spine 09/15: Focal severe spinal canal stenosis at C4-5. Moderate diffuse broad-based bulging at C3-4 with some mild increased signal in the spinal cord at this level. Moderate spinal canal stenosis at C6-C7 Bilateral facet arthritis at multiple levels. Head CT 08/23: 2 questionable tiny focal hemorrhages. MRI of brain 08/26 chronic small vessel ischemic and atrophic changes. EEG 09/03 revealed severe encephalopathy. No epileptiform activity - Neurosurgery Dr. Victor consulted, Poor chance of neurological recovery for him , recent discussion with Dr. Smith and son, no further surgical intervention per son. - Neurology Dr. Carvalho. Per his recommendations was placed on high dose solumedrol 250 mg every 6 hours, d/w Dr. Carvalho 10/06 , taper steroids to off over 2-3 weeks. Was switch to oral 10/07 and taper accordingly. - Continue Tylenol, oxycodone, physical therapy. Uncontrolled hypertension- - BP improved Atherosclerotic coronary artery disease, Atrial fibrillation- now in SR on telemetry -Continue metoprolol and digoxin, previously on amiodarone was stopped because of bradycardia. BP is better, in fact soft,now metoprolol to 25 mg BID monitora nd adjust Abdominal distention 10/12 - likely ileus- patient burping a lot- now Resolved - restart TF- glucerna today 10/13 - restart sliding scale insulin- restart long accting if TF at goal rate Acute, now chronic hypoxic hypercapnic respiratory failure secondary to COPD exacerbation, Trach site infection, Bilateral pleural effusion/status post chest tube right- sided transudative in nature. Chest tube removed 09/04 Multiple bilateral pulmonary masses vs infiltrate, RML mass vs consolidation -CT pulmonary angiogram revealed multiple masses. Lung mass biopsied on August 28 showed CHRONIC INFLAMMATORY AND REACTIVE FIBROBLASTIC TISSUE CONTAINING ENTRAPPED BENIGN EPITHELIUM, plan is reconsult IR 09/08 for repeat biopsy however patient is not stable. - Followed by Dr. Hardy/pulmonology. Reconsulted 09/08, recommended repeat CT in 4 weeks and to hold off IR guided biopsy due to respiratory and neuro status. s/p percutaneous tracheostomy 09/08 (Biga/Michael), Status post thoracentesis left side 09/09 with 1 L fluid removed. No evidence of infection. Chest tubes removed 09/04/2017. -Continue T-piece, continue budesonide, DuoNeb's, Levsin for secretions - Pulmonary ff decannulation, CXR still shows bilateral infiltrates, keep on T- bar at 30% - trach in place- 28% - pulmonary toilette- d/s staff nurse and RT- - trail of prn Ativan- to help with agitation Hypoalbuminemia Acute protein calorie malnutrition -severe -s/p PEG 09/11. Tolerating tube feeds with Glucerna 1.5 at 55 cc an hour, free water flushes 300 cc every 6 hours Urinary retention, possible urinary stricture Acute kidney injury Maintain Ceja catheter. Monitor urine output, Accurate I's and O's, significant difficulty due to obstruction which may be urethral stricture which prevented serial i/o Diabetes mellitus Sliding scale insulin with NovoLog high regimen to maintain euglycemia. Currently on insulin Letemir 10 units subq twice daily- on hold- restart if TF at goal rate - good readings- check FS bid
--- NOTE | 2017-11-03 17:40 | P.PN ---
Subjective Interval history: he is alert and on a T bar and seems in no distress. No fever Physical Exam Vital signs: Vital Signs 11/02/17 19:42 11/02/17 19:43 11/02/17 20:00 Temperature 97.6 F Pulse Rate 111 H 111 H Respiratory Rate 20 18 Blood Pressure 119/69 Pulse Oximetry 93 L 94 L 11/03/17 00:00 11/03/17 04:00 11/03/17 06:30 Temperature 98.4 F 98.0 F Pulse Rate 111 H 112 H Respiratory Rate 18 18 Blood Pressure 113/69 141/73 H Pulse Oximetry 97 95 97 11/03/17 08:00 11/03/17 10:14 11/03/17 12:00 Temperature 97.3 F L 98.2 F Pulse Rate 109 H 98 H 86 Respiratory Rate 20 16 20 Blood Pressure 153/87 H 138/75 Pulse Oximetry 94 L 98 100 Intake & Output 11/02/17 11/03/17 11/03/17 18:59 06:59 18:59 Intake Total 1385 / 1385 1470 / 1470 Output Total 1050 / 1050 2450 / 2450 Balance 335 / 335 -980 / -980 Intake: Oral 0 / 0 Tube Feeding 525 / 525 770 / 770 Tube Irrigant 160 / 160 100 / 100 Water Bolus Amount 600 / 600 600 / 600 Anesthesia Amount 0 / 0 Other 100 / 100 Output: Urine 750 / 750 2450 / 2450 Stool 0 / 0 0 / 0 Urine/Stool Mix 0 / 0 Estimated Blood Loss 300 / 300 Other: Other Intake Source Saline Solution Date of Last Bowel Movement 11/02/17 11/02/17 10/15/17 # Bowel Movements 1 # Incontinent Bowel Movements 1 Narrative: up in chair , awake in no acute distress PERLL, Throat clear. trach in place Regular rate and rhythm, no murmurs. S1, S2 NO S3 OR SR Diminished breath sounds bilaterally.Occ Wheeze Abdomen soft, non-tender, PEG site good Extremities without cyanosis, or edema.[place]. Awake and alert. Does not follow commands. - Urinary Catheter Management Indwelling Urethral Catheter Cath placed during this visit: yes Urethral indwelling: Yes Reason for continuing: Acute urinary retention Insertion date: 08/20/17 Insertion time: 17:00 Results - Labs CBC & Chem 7: 10/18/17 08:30 10/18/17 08:30 Laboratory Results - last 24 hr 11/02/17 11/02/17 11/03/17 17:18 23:45 05:23 POC Glucose 150 H 151 H 111 H 11/03/17 12:57 POC Glucose 207 H - Procedures 08/23- intubation 09/03- bronchoscopy, lung biopsy, thoracentesis 09/08- tracheostomy 09/11- PEG placement Assessment and Plan - Assessment (1) Cervical myelopathy Code(s): G95.9 - Disease of spinal cord, unspecified Status: Acute (2) Respiratory failure Code(s): J96.90 - Respiratory failure, unspecified, unspecified whether with hypoxia or hypercapnia Status: Acute (3) SVT (supraventricular tachycardia) Code(s): I47.1 - Supraventricular tachycardia Status: Acute (4) Lung mass Code(s): R91.8 - Other nonspecific abnormal finding of lung field Status: Acute (5) Diabetes Code(s): E11.9 - Type 2 diabetes mellitus without complications Status: Acute (6) Gout Code(s): M10.9 - Gout, unspecified Status: Acute (7) Spinal stenosis Code(s): M48.00 - Spinal stenosis, site unspecified Status: Acute (8) Dyspnea Code(s): R06.00 - Dyspnea, unspecified Status: Acute - Plan 1. Cont T Bar at 30 % FIO2. 2. Trach lavage and suction PRN 3. Cont Duoneb nebs qid. 4. Chest Xray in am 5. Tube feeds at 60CC 6. PT evaluation. 7. Will get F/U Chest CT in 3 mths.
[2017-11-03] MEDS: Hyoscyamine Inj 0.5 MG/ML Ampul IV.PUSH PRN (20:59)
[2017-11-04] MEDS: Insulin NovoLOG Aspart Correctional Sugar Inj SQ SCH ×4 (06:00→17:36)
--- NOTE | 2017-11-04 06:36 | XR ---
EXAM DATE: 11/04/2017 6:25 AM EDT AGE/SEX: 77 years / Male INDICATIONS: Short of breath, evaluate for infiltrate CLINICAL DATA: This is the patient's subsequent encounter. Patient reports that signs and symptoms h ave been present for 2 months and indicates a pain score of Nonresponsive. MEDICAL/SURGICAL HISTORY: Hypertension. Diabetes mellitus type II. Carcinoma, prostatic. Non- responsive. COMPARISON: [facility] – [place] CHEST [place]/O CONTRAST, 10/30/2017 and chest x-ray 10/27/2017. . FINDINGS: A single AP view of the chest demonstrates no significant change. Small left and tiny right pleural e ffusion with scattered parenchymal consolidation throughout both lungs but predominantly on the left. Heart is normal in size. Tracheostomy tube noted. CONCLUSION: Unchanged exam when compared to the prior studies. Electronically signed by: Daniel Rey MD 11/04/2017 6:35 AM EDT
--- NOTE | 2017-11-04 09:04 | P.PN ---
Subjective Interval history: awake and alert moves all extremities to commands and spontaenously Physical Exam Vital signs: Vital Signs 11/03/17 10:14 11/03/17 12:00 11/03/17 16:00 Temperature 98.2 F 98.6 F Pulse Rate 98 H 86 80 Respiratory Rate 16 20 20 Blood Pressure 138/75 120/68 Pulse Oximetry 98 100 98 11/03/17 20:00 11/03/17 20:29 11/04/17 00:00 Temperature 97.8 F 98.3 F Pulse Rate 89 86 91 H Respiratory Rate 20 20 22 Blood Pressure 135/78 126/68 Pulse Oximetry 95 96 95 11/04/17 01:04 11/04/17 04:00 11/04/17 07:29 Temperature 98.0 F Pulse Rate 100 H 96 H Respiratory Rate 24 16 Blood Pressure 140/71 Pulse Oximetry 96 94 L 96 11/04/17 08:00 Temperature 97.7 F Pulse Rate 97 H Respiratory Rate 22 Blood Pressure 153/81 H Pulse Oximetry 98 Intake & Output 11/03/17 11/04/17 11/04/17 18:59 06:59 18:59 Intake Total 1360 / 1360 1410 / 1410 Output Total 750 / 750 650 / 650 Balance 610 / 610 760 / 760 Weight 64.4 kg Intake: Oral 0 / 0 0 / 0 Tube Feeding 660 / 660 660 / 660 Tube Irrigant 150 / 150 Water Bolus Amount 600 / 600 600 / 600 Anesthesia Amount 0 / 0 0 / 0 Other 100 / 100 Output: Urine 750 / 750 650 / 650 Stool 0 / 0 Urine/Stool Mix 0 / 0 Other: Other Intake Source Saline Solution Date of Last Bowel Movement 11/02/17 10/15/17 # Bowel Movements 1 # Incontinent Bowel Movements 1 Narrative: awake in no acute distress, interacted when I spketo him in lao pupils equal trach in place cervical collar in place Regular rate and rhythm, no murmurs. Diminished breath sounds bilaterally. Abdomen soft, non-tender, PEG site good Extremities without cyanosis, or edema Awake and alert. ff some commands ceja in place - Urinary Catheter Management Indwelling Urethral Catheter Cath placed during this visit: yes Urethral indwelling: Yes Reason for continuing: Acute urinary retention Insertion date: 08/20/17 Insertion time: 17:00 Results - Labs CBC & Chem 7: 10/18/17 08:30 10/18/17 08:30 Laboratory Results - last 24 hr 11/03/17 11/03/17 11/04/17 12:57 18:17 01:21 POC Glucose 207 H 205 H 121 H 11/04/17 05:21 POC Glucose 176 H - Imaging Impressions Chest X-Ray 11/04/17 00:00 CONCLUSION: Unchanged exam when compared to the prior studies. - Procedures 08/23- intubation 09/03- bronchoscopy, lung biopsy, thoracentesis 09/08- tracheostomy 09/11- PEG placement Assessment and Plan - Plan In summary this is a 77-year-old man with a medical history significant for hypertension, gout, diabetes who initially presented with pain in his groin and back. CT angiogram showed bilateral emphysema and pulmonary nodules with compressive atelectasis of right lower lobe. Patient underwent a biopsy which showed chronic inflammation, and reactive fibroblastic tissue. He was also found to have significant spinal stenosis and underwent a laminectomy by neurosurgery. The patient's hospital stay was complicated by septic shock secondary to hospital-acquired pneumonia and C. difficile. 10/19: Patient desat to 85%. Patient was lavaged and suctioned by respiratory, moderate amount of mucous removed in addition to a blue liquid. Patient was bagged to trach, saturated at 100%, then transitioned back to trach and patient saturated at 98% on 40%FI02. He was notably more comfortable. I discussed case with nurse and respiratory therapist. Desat likely due to mucous plug or from whatever he was given by mouth. (Noted to have passed his swallow eval). Patient to remain NPO. Will watch closely. Will make sure pulmonology is updated. Severe cervical spinal stenosis Status post C2 hemicolectomy, C3 through C5 laminoplasty with quadriplegia and acute spinal injury MRI C-spine 09/15: Focal severe spinal canal stenosis at C4-5. Moderate diffuse broad-based bulging at C3-4 with some mild increased signal in the spinal cord at this level. Moderate spinal canal stenosis at C6-C7 Bilateral facet arthritis at multiple levels. Head CT 08/23: 2 questionable tiny focal hemorrhages. MRI of brain 08/26 chronic small vessel ischemic and atrophic changes. EEG 09/03 revealed severe encephalopathy. No epileptiform activity Neurosurgery Dr. Victor consulted, Poor chance of neurological recovery for him, recent discussion with Dr. Smith and son, no further surgical intervention per son. Neurology Dr. Carvalho. Patient treated with steroids per neurology recommendations. Completed the course of treatment. = No changes. Continue to monitor. Hypertension-MEDS ADJUSTED CAD A-Fib- in SR continue metoprolol & digoxin (was previously on amiodarone, was stopped due to bradycardia) BP is stable = 10/20. Patient still with heart rate excursions up to the 120s, most recently yesterday. Patient's last dose of digoxin was over a month ago. Will discontinue. Increase metoprolol dose. Acute on chronic respiratory failure secondary to COPD CT pulmonary angiogram revealed multiple masses. Lung mass biopsied on August 28 showed CHRONIC INFLAMMATORY AND REACTIVE FIBROBLASTIC TISSUE CONTAINING ENTRAPPED BENIGN EPITHELIUM. Second biopsy on hold due to risk of decompensation. Pulmonology has advised against doing a second biopsy given significant risk. Repeat CT scan in 4 weeks, if mass decrease in size more likely that this is infectious etiology malignancy. Pulmonology following: Continue Levaquin 500 mg daily 7 (10/15-10/21)days for left base infiltrate, trach lavage and suction as needed, continue to collar at 35% FiO2 and wean to keep sats greater than 92 Severe malnutrition Tolerating tube feeds- gucerna 1.5 cc 50 cc/hr ALSO BEING FED A DIET Urinary retention Urinary stricture- ceja was placed by urology 08/20 Ceja due to be change Diabetes Melitus- good readings Continue sliding scale on lantus 5 units bid Severe Sepsis: resolved Trach Site infection: Resolved HCAP: resolved C. 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 Palliative care is following the patient and has discussed met with the patient's family. Discussion of hospice and comfort measures as been discussed with the family have met with hospice. declines at this time. Son also has declined hospice at this time. FAMILY WANTS AGGRESSIVE TREATMENT SNF This is a 77-year-old Irish male admitted 08/21/2017, with history of hypertension, gout and diabetes mellitus presenting initially with intermittent pain in his groin, upper thorax and around his back. CT angiogram showed bilateral emphysema and pulmonary nodules with compressive atelectasis of the right lower lobe. Biopsy was done which showed chronic inflammation reactive fibroblastic tissue. Patient was also found to have severe spinal stenosis, status post laminectomy. Patient's hospital stay was complicated by septic shock secondary to healthcare associated pneumonia and C. difficile colitis. Severe cervical spinal stenosis, status post C2 hemilaminectomy, C3 through 5 lamina plasty with quadriplegia and acute spinal injury. Toxic metabolic encephalopathy. - MRI C-spine 09/15: Focal severe spinal canal stenosis at C4-5. Moderate diffuse broad-based bulging at C3-4 with some mild increased signal in the spinal cord at this level. Moderate spinal canal stenosis at C6-C7 Bilateral facet arthritis at multiple levels. Head CT 08/23: 2 questionable tiny focal hemorrhages. MRI of brain 08/26 chronic small vessel ischemic and atrophic changes. EEG 09/03 revealed severe encephalopathy. No epileptiform activity - Neurosurgery Dr. Victor consulted, Poor chance of neurological recovery for him , recent discussion with Dr. Smith and son, no further surgical intervention per son. - Neurology Dr. Carvalho. Per his recommendations was placed on high dose solumedrol 250 mg every 6 hours, d/w Dr. Carvalho 10/06 , taper steroids to off over 2-3 weeks. Was switch to oral 10/07 and taper accordingly. - Continue Tylenol, oxycodone, physical therapy. Uncontrolled hypertension- - BP improved Atherosclerotic coronary artery disease, Atrial fibrillation- now in SR on telemetry -Continue metoprolol and digoxin, previously on amiodarone was stopped because of bradycardia. BP is better, in fact soft,now metoprolol to 25 mg BID monitor and adjust Abdominal distention 10/12 - likely ileus- patient burping a lot- now Resolved -on glucerna - restart sliding scale insulin- restart long accting if TF at goal rate Acute, now chronic hypoxic hypercapnic respiratory failure secondary to COPD exacerbation, Trach site infection, Bilateral pleural effusion/status post chest tube right- sided transudative in nature. Chest tube removed 09/04 Multiple bilateral pulmonary masses vs infiltrate, RML mass vs consolidation -CT pulmonary angiogram revealed multiple masses. Lung mass biopsied on August 28 showed CHRONIC INFLAMMATORY AND REACTIVE FIBROBLASTIC TISSUE CONTAINING ENTRAPPED BENIGN EPITHELIUM, plan is reconsult IR 09/08 for repeat biopsy however patient is not stable. - Followed by Dr. Hardy/pulmonology. Reconsulted 09/08, recommended repeat CT in 4 weeks and to hold off IR guided biopsy due to respiratory and neuro status. s/p percutaneous tracheostomy 09/08 (Michellea/[place]), Status post thoracentesis left side 09/09 with 1 L fluid removed. No evidence of infection. Chest tubes removed 09/04/2017. -Continue T-piece, continue budesonide, DuoNeb's, Levsin for secretions - Pulmonary ff decannulation, CXR still shows bilateral infiltrates, keep on T- bar at 30% - trach in place- 28% - pulmonary toilette- d/s staff nurse and RT- - trail of prn Ativan- to help with agitation Hypoalbuminemia Acute protein calorie malnutrition -severe -s/p PEG 09/11. Tolerating tube feeds with Glucerna 1.5 at 55 cc an hour, free water flushes 300 cc every 6 hours Urinary retention, possible urinary stricture Acute kidney injury Maintain Ceja catheter. Monitor urine output, Accurate I's and O's, significant difficulty due to obstruction which may be urethral stricture which prevented serial i/o Diabetes mellitus Sliding scale insulin with NovoLog high regimen to maintain euglycemia. Currently on insulin Levemer 5 units SQ bid- continue to monitor and adjust - good readings- check FS bid
[2017-11-04] MEDS: Insulin Detemir Inj 1,000 UNIT/10 ML Vial SQ SCH ×2 (09:22→21:00)
[2017-11-04] MEDS: Metoprolol Tartrate 50 MG Tablet NG/OG SCH ×2 (09:25→21:53)
[2017-11-04] MEDS: QUEtiapine 25 MG Tablet NG/OG SCH ×2 (09:25→21:53)
[2017-11-04] MEDS: Hyoscyamine Inj 0.5 MG/ML Ampul IV.PUSH PRN ×2 (09:26→20:46)
[2017-11-05] MEDS: LORazepam 1 MG Tablet G-TUBE PRN ×2 (03:00→20:00)
[2017-11-05] MEDS: Insulin NovoLOG Aspart Correctional Sugar Inj SQ SCH ×4 (06:00→18:15)
--- NOTE | 2017-11-05 10:03 | P.PNIM ---
Subjective Interval history: No acute changes. Patient is nonverbal. Patient is not oriented. No complaints. Physical Exam Vital signs: Vital Signs 11/04/17 12:00 11/04/17 16:00 11/04/17 17:31 Temperature 97.7 F 97.5 F L Pulse Rate 93 H 99 H Respiratory Rate 22 Blood Pressure 92/52 L 133/77 Pulse Oximetry 96 98 97 11/04/17 20:00 11/04/17 21:35 11/05/17 00:00 Temperature 98.1 F 98.9 F Pulse Rate 100 H 106 H 92 H Respiratory Rate 22 20 22 Blood Pressure 138/78 125/67 Pulse Oximetry 96 92 L 97 11/05/17 04:00 11/05/17 07:00 11/05/17 07:59 Temperature 98.7 F 98.5 F Pulse Rate 94 H 94 H Respiratory Rate 24 22 Blood Pressure 130/74 132/74 Pulse Oximetry 96 96 98 11/05/17 09:10 Temperature Pulse Rate 115 H Respiratory Rate 22 Blood Pressure Pulse Oximetry 91 L Intake & Output 11/04/17 11/05/17 11/05/17 18:59 06:59 18:59 Intake Total 775 / 775 1380 / 1380 Output Total 600 / 600 1300 / 1300 Balance 175 / 175 80 / 80 Weight 61.9 kg Intake: Oral 0 / 0 Tube Feeding 575 / 575 660 / 660 Tube Irrigant 200 / 200 120 / 120 Water Bolus Amount 600 / 600 Output: Urine Amount (Catheter) 600 / 600 1300 / 1300 Indwelling Urethral Catheter 600 / 600 1300 / 1300 Other: Date of Last Bowel Movement 11/04/17 11/04/17 11/04/17 Narrative: GENERAL: NAD, A&Ox0, nonverbal HEAD: Normocephalic. NECK: Supple, trachea midline. No lymphadenopathy. Tracheostomy present. EYES: No scleral icterus. No injection or drainage. CARDIOVASCULAR: Regular rate and rhythm without murmurs, gallops, or rubs. RESPIRATORY: Breath sounds equal bilaterally. No accessory muscle use. GASTROINTESTINAL: Abdomen soft, non-tender, nondistended. No erythema at tube feed site. MUSCULOSKELETAL: No cyanosis, or edema. SKIN: Warm and dry. NEURO: Global neurological deficits. - Urinary Catheter Management Indwelling Urethral Catheter Cath placed during this visit: yes Urethral indwelling: Yes Reason for continuing: Acute urinary retention Insertion date: 08/20/17 Insertion time: 17:00 Results - Labs CBC & Chem 7: 10/18/17 08:30 10/18/17 08:30 Laboratory Results - last 24 hr 11/04/17 11/04/17 11/05/17 12:04 17:13 00:27 POC Glucose 125 H 181 H 186 H 11/05/17 06:36 POC Glucose 123 H - Procedures 08/23- intubation 09/03- bronchoscopy, lung biopsy, thoracentesis 09/08- tracheostomy 09/11- PEG placement Assessment and Plan - Plan 77-year-old man with a medical history significant for hypertension, gout, diabetes who initially presented with pain in his groin and back. CT angiogram showed bilateral emphysema and pulmonary nodules with compressive atelectasis of right lower lobe. Patient underwent a biopsy which showed chronic inflammation, and reactive fibroblastic tissue. He was also found to have significant spinal stenosis and underwent a laminectomy by neurosurgery. The patient's hospital stay was complicated by septic shock secondary to hospital- acquired pneumonia and C. difficile. 10/19: Patient desat to 85%. Patient was lavaged and suctioned by respiratory, moderate amount of mucous removed in addition to a blue liquid. Patient was bagged to trach, saturated at 100%, then transitioned back to trach and patient saturated at 98% on 40%FI02. He was notably more comfortable. Desat likely due to mucous plug or from whatever he was given by mouth. (Noted to have passed his swallow eval). Severe cervical spinal stenosis Status post C2 hemicolectomy, C3 through C5 laminoplasty quadriplegia acute spinal injury Poor chance for neurological recovery per neurosurgery Patient son desires no further neurological interventions Continue to monitor neurological status Hypertension Coronary artery disease History of A. fib Continue metoprolol Continue digoxin Follow blood pressures History of COPD Chronic respiratory failure Chronic tracheostomy Lung masses (chronic infection vs. malignancy) Further biopsy none option Continue tracheostomy care Continue oxygen supplementation Encephalopathy Continue supportive care Monitor for improvement Restraints as needed to prevent self-harm Severe malnutrition Continue tube feeds Urinary retention Larson placed 08/20/2017 Change Larson catheter every 4-6 weeks Diabetes mellitus type 2 Follow blood sugars Insulin sliding scale Diabetic diet Lantus 5 units bid Severe Sepsis: resolved Trach Site infection: Resolved HCAP: resolved C. Diff colitis: resolved DVT proph SCDs & heparin
[2017-11-05] MEDS: Insulin Detemir Inj 1,000 UNIT/10 ML Vial SQ SCH ×2 (12:23→20:08)
[2017-11-05] MEDS: Metoprolol Tartrate 50 MG Tablet NG/OG SCH ×2 (12:24→19:59)
[2017-11-05] MEDS: QUEtiapine 25 MG Tablet NG/OG SCH ×2 (12:24→19:59)
[2017-11-05] MEDS: Hyoscyamine Inj 0.5 MG/ML Ampul IV.PUSH PRN (20:01)
[2017-11-06] MEDS: Insulin NovoLOG Aspart Correctional Sugar Inj SQ SCH ×3 (00:50→19:14)
[2017-11-06] MEDS: Insulin Detemir Inj 1,000 UNIT/10 ML Vial SQ SCH ×2 (08:58→20:45)
[2017-11-06] MEDS: QUEtiapine 25 MG Tablet NG/OG SCH ×2 (08:59→20:45)
[2017-11-06] MEDS: Metoprolol Tartrate 50 MG Tablet NG/OG SCH ×2 (08:59→20:44)
--- NOTE | 2017-11-06 09:13 | P.PNIM ---
Subjective Interval history: Patient remains nonverbal. No acute changes overnight. No fevers. Physical Exam Vital signs: Vital Signs 11/05/17 12:00 11/05/17 15:03 11/05/17 18:02 Temperature 98.6 F 98.5 F Pulse Rate 82 84 Respiratory Rate 22 20 Blood Pressure 99/59 L 116/73 Pulse Oximetry 98 98 11/05/17 20:00 11/05/17 20:40 11/06/17 00:00 Temperature 98.6 F 97.1 F L Pulse Rate 103 H 71 85 Respiratory Rate 25 H 17 20 Blood Pressure 142/83 H 106/65 Pulse Oximetry 96 11/06/17 04:00 11/06/17 08:00 Temperature 97.5 F L 98 F Pulse Rate 102 H 100 H Respiratory Rate 20 20 Blood Pressure 130/70 138/70 Pulse Oximetry 96 Intake & Output 11/05/17 11/06/17 11/06/17 18:59 06:59 18:59 Intake Total 1360 / 1360 1080 / 1080 Output Total 2250 / 2250 450 / 450 Balance -890 / -890 630 / 630 Intake: Oral 0 / 0 Tube Feeding 660 / 660 740 / 740 Tube Irrigant 0 / 0 40 / 40 Water Bolus Amount 600 / 600 300 / 300 Anesthesia Amount 0 / 0 Other 100 / 100 Output: Urine 650 / 650 Stool 0 / 0 0 / 0 Urine/Stool Mix 0 / 0 Estimated Blood Loss 300 / 300 Urine Amount (Catheter) 1300 / 1300 450 / 450 Indwelling Urethral Catheter 1300 / 1300 450 / 450 Other: Other Intake Source Saline Solution Date of Last Bowel Movement 11/04/17 11/04/17 11/04/17 # Bowel Movements 1 # Incontinent Bowel Movements 1 Narrative: GENERAL: NAD, A&Ox0, nonverbal HEAD: Normocephalic. NECK: Supple, trachea midline. No lymphadenopathy. Tracheostomy present. EYES: No scleral icterus. No injection or drainage. CARDIOVASCULAR: Regular rate and rhythm without murmurs, gallops, or rubs. RESPIRATORY: Breath sounds equal bilaterally. No accessory muscle use. GASTROINTESTINAL: Abdomen soft, non-tender, nondistended. No erythema at tube feed site. MUSCULOSKELETAL: No cyanosis, or edema. SKIN: Warm and dry. NEURO: Global neurological deficits. - Urinary Catheter Management Indwelling Urethral Catheter Cath placed during this visit: yes Urethral indwelling: Yes Reason for continuing: Acute urinary retention Insertion date: 08/20/17 Insertion time: 17:00 Results - Labs CBC & Chem 7: 10/18/17 08:30 10/18/17 08:30 Laboratory Results - last 24 hr 11/05/17 11/05/17 11/06/17 12:14 17:35 00:27 POC Glucose 217 H 135 H 153 H 11/06/17 04:53 POC Glucose 148 H - Procedures 08/23- intubation 09/03- bronchoscopy, lung biopsy, thoracentesis 09/08- tracheostomy 09/11- PEG placement Assessment and Plan - Plan 77-year-old man with a medical history significant for hypertension, gout, diabetes who initially presented with pain in his groin and back. CT angiogram showed bilateral emphysema and pulmonary nodules with compressive atelectasis of right lower lobe. Patient underwent a biopsy which showed chronic inflammation, and reactive fibroblastic tissue. He was also found to have significant spinal stenosis and underwent a laminectomy by neurosurgery. The patient's hospital stay was complicated by septic shock secondary to hospital- acquired pneumonia and C. difficile. 10/19: Patient desat to 85%. Patient was lavaged and suctioned by respiratory, moderate amount of mucous removed in addition to a blue liquid. Patient was bagged to trach, saturated at 100%, then transitioned back to trach and patient saturated at 98% on 40%FI02. He was notably more comfortable. Desat likely due to mucous plug or from whatever he was given by mouth. (Noted to have passed his swallow eval). No significant changes overnight. Continue monitoring mental status. Continue monitoring for fevers. Severe cervical spinal stenosis Status post C2 hemicolectomy, C3 through C5 laminoplasty quadriplegia acute spinal injury Poor chance for neurological recovery per neurosurgery Patient son desires no further neurological interventions Continue to monitor neurological status Hypertension Coronary artery disease History of A. fib Continue metoprolol Continue digoxin Follow blood pressures History of COPD Chronic respiratory failure Chronic tracheostomy Lung masses (chronic infection vs. malignancy) Further biopsy none option Continue tracheostomy care Continue oxygen supplementation Encephalopathy Continue supportive care Monitor for improvement Restraints as needed to prevent self-harm Severe malnutrition Continue tube feeds Urinary retention Larson placed 08/20/2017 Change Larson catheter every 4-6 weeks Diabetes mellitus type 2 Follow blood sugars Insulin sliding scale Diabetic diet Lantus 5 units bid Severe Sepsis: resolved Trach Site infection: Resolved HCAP: resolved C. Diff colitis: resolved DVT proph SCDs & heparin
[2017-11-07] MEDS: Insulin NovoLOG Aspart Correctional Sugar Inj SQ SCH ×4 (00:35→18:07)
[2017-11-07] MEDS: LORazepam 1 MG Tablet G-TUBE PRN (01:04)
[2017-11-07] MEDS: Insulin Detemir Inj 1,000 UNIT/10 ML Vial SQ SCH ×2 (08:42→21:35)
[2017-11-07] MEDS: Metoprolol Tartrate 50 MG Tablet NG/OG SCH ×2 (08:42→21:35)
[2017-11-07] MEDS: QUEtiapine 25 MG Tablet NG/OG SCH ×2 (08:42→21:41)
[2017-11-07 09:08] LABS: Baso % (Auto) 0.3 % (0.0-2.0); Eos # (Auto) 0.3 th/mm3 (0.0-0.4); Eos % (Auto) 2.1 % (0.0-4.0); Hematocrit 32.6 % (39.0-51.0); Hemoglobin 10.2 gm/dL (13.0-17.0); Lymph # (Auto) 2.3 th/mm3 (1.0-4.8); Lymph % (Auto) 18.3 % (9.0-44.0); Mean Corpuscular HGB Conc 31.2 % (32.0-36.0); Mean Corpuscular Hemoglobin 29.7 pg (27.0-34.0); Mean Platelet Volume 7.5 fL (7.0-11.0); Mono # (Auto) 1.1 th/mm3 (0.0-0.9); Mono % (Auto) 9.2 % (0.0-8.0); Neut # (Auto) 8.7 th/mm3 (1.8-7.7); Neut % (Auto) 70.1 % (16.0-70.0); Platelet Count 285 th/mm3 (150-450); Red Blood Count 3.43 mil/mm3 (4.50-5.90); White Blood Count 12.4 th/mm3 (4.0-11.0)
[2017-11-07 09:26] LABS: Albumin 2.6 g/dL (3.4-5.0); Anion Gap 7 meq/L (5-15); Aspartate Aminotransferase 30 U/L (15-37); Blood Urea Nitrogen 33 mg/dL (7-18); Calcium 9.1 mg/dL (8.5-10.1); Carbon Dioxide 39.3 meq/L (21.0-32.0); Chloride 96 meq/L (98-107); Glomerular Filtration Rate Greater Than 89 mL/min (>89); Glucose,Random 166 mg/dL (74-106); Potassium 4.5 meq/L (3.5-5.1); Sodium 142 meq/L (136-145)
[2017-11-07 09:30] LABS: Alanine Aminotransferase 29 U/L (12-78); Alkaline Phosphatase 140 U/L (45-117); Total Protein 7.6 g/dL (6.4-8.2)
--- NOTE | 2017-11-07 09:32 | P.PNIM ---
Subjective Interval history: Patient has increased secretions this morning. Patient is nonverbal. No distress, but respiratory crackles are present so increased suctioning is occurring. Physical Exam Vital signs: Vital Signs 11/06/17 12:00 11/06/17 15:05 11/06/17 18:19 Temperature 98 F 98.3 F Pulse Rate 92 H Respiratory Rate 20 Blood Pressure 103/82 98/68 L Pulse Oximetry 96 11/06/17 19:59 11/06/17 20:00 11/07/17 00:00 Temperature 98.4 F 98.3 F Pulse Rate 103 H 110 H Respiratory Rate 18 20 Blood Pressure 159/76 H 150/81 H Pulse Oximetry 97 11/07/17 04:00 11/07/17 08:00 Temperature 98.4 F 98.6 F Pulse Rate 96 H 98 H Respiratory Rate 16 20 Blood Pressure 148/84 H 138/68 Pulse Oximetry Intake & Output 11/06/17 11/07/17 11/07/17 18:59 06:59 18:59 Intake Total 2120 / 2120 1448 / 1448 Output Total 2300 / 2300 1800 / 1800 Balance -180 / -180 -352 / -352 Weight 66.8 kg Intake: Oral 0 / 0 Tube Feeding 1440 / 1440 668 / 668 Tube Irrigant 80 / 80 180 / 180 Water Bolus Amount 600 / 600 600 / 600 Anesthesia Amount 0 / 0 Other 0 / 0 Output: Urine 0 / 0 Stool 0 / 0 0 / 0 Urine/Stool Mix 0 / 0 Estimated Blood Loss 600 / 600 Urine Amount (Catheter) 1700 / 1700 1800 / 1800 Indwelling Urethral Catheter 1700 / 1700 1800 / 1800 Other: Other Intake Source Saline Solution Date of Last Bowel Movement 11/06/17 11/06/17 # Bowel Movements 1 # Incontinent Bowel Movements 1 Narrative: GENERAL: NAD, A&Ox0, nonverbal HEAD: Normocephalic. NECK: Supple, trachea midline. No lymphadenopathy. Tracheostomy present. EYES: No scleral icterus. No injection or drainage. CARDIOVASCULAR: Regular rate and rhythm without murmurs, gallops, or rubs. RESPIRATORY: Breath sounds equal bilaterally. No accessory muscle use. Upper respiratory rhonchi. GASTROINTESTINAL: Abdomen soft, non-tender, nondistended. No erythema at tube feed site. MUSCULOSKELETAL: No cyanosis, or edema. SKIN: Warm and dry. NEURO: Global neurological deficits. - Urinary Catheter Management Indwelling Urethral Catheter Cath placed during this visit: yes Urethral indwelling: Yes Reason for continuing: Acute urinary retention Insertion date: 08/20/17 Insertion time: 17:00 Results - Labs CBC & Chem 7: 11/07/17 08:03 11/07/17 08:03 Laboratory Results - last 24 hr 11/06/17 11/07/17 11/07/17 11:55 00:12 05:28 WBC RBC Hgb Hct MCV MCH MCHC RDW Plt Count MPV Neut % (Auto) Lymph % (Auto) [place] % (Auto) Eos % (Auto) Baso % (Auto) Neut # (Auto) Lymph # (Auto) [place] # (Auto) Eos # (Auto) Baso # (Auto) WBC Differential Differential Comment Sodium Potassium Chloride Carbon Dioxide Anion Gap BUN Creatinine Estimated GFR POC Glucose 198 H 159 H 143 H Random Glucose Calcium Total Bilirubin AST ALT Alkaline Phosphatase Total Protein Albumin 11/07/17 11/07/17 08:03 08:03 WBC 12.4 H RBC 3.43 L Hgb 10.2 L Hct 32.6 L MCV 95.0 MCH 29.7 MCHC 31.2 L RDW 17.0 Plt Count 285 MPV 7.5 Neut % (Auto) 70.1 H Lymph % (Auto) 18.3 [place] % (Auto) 9.2 H Eos % (Auto) 2.1 Baso % (Auto) 0.3 Neut # (Auto) 8.7 H Lymph # (Auto) 2.3 [place] # (Auto) 1.1 H Eos # (Auto) 0.3 Baso # (Auto) 0.0 WBC Differential . Differential Comment Auto diff final Sodium 142 Potassium 4.5 Chloride 96 L Carbon Dioxide 39.3 H Anion Gap 7 BUN 33 H Creatinine 0.47 L Estimated GFR Greater than 89 POC Glucose Random Glucose 166 H Calcium 9.1 Total Bilirubin 0.3 AST 30 ALT 29 Alkaline Phosphatase 140 H Total Protein 7.6 Albumin 2.6 L - Procedures 08/23- intubation 09/03- bronchoscopy, lung biopsy, thoracentesis 09/08- tracheostomy 09/11- PEG placement Assessment and Plan - Plan 77-year-old man with a medical history significant for hypertension, gout, diabetes who initially presented with pain in his groin and back. CT angiogram showed bilateral emphysema and pulmonary nodules with compressive atelectasis of right lower lobe. Patient underwent a biopsy which showed chronic inflammation, and reactive fibroblastic tissue. He was also found to have significant spinal stenosis and underwent a laminectomy by neurosurgery. The patient's hospital stay was complicated by septic shock secondary to hospital- acquired pneumonia and C. difficile. 10/19: Patient desat to 85%. Patient was lavaged and suctioned by respiratory, moderate amount of mucous removed in addition to a blue liquid. Patient was bagged to trach, saturated at 100%, then transitioned back to trach and patient saturated at 98% on 40%FI02. He was notably more comfortable. Desat likely due to mucous plug or from whatever he was given by mouth. (Noted to have passed his swallow eval). Increased respiratory secretions today. Continue as needed Levsin. Scheduled Levsin added for 24 hours. Monitor for decrease in hyper secretions. Severe cervical spinal stenosis Status post C2 hemicolectomy, C3 through C5 laminoplasty quadriplegia acute spinal injury Poor chance for neurological recovery per neurosurgery Patient son desires no further neurological interventions Continue to monitor neurological status Hypertension Coronary artery disease History of A. fib Continue metoprolol Continue digoxin Follow blood pressures History of COPD Chronic respiratory failure Chronic tracheostomy Lung masses (chronic infection vs. malignancy) Further biopsy none option Continue tracheostomy care Continue oxygen supplementation Encephalopathy Continue supportive care Monitor for improvement Restraints as needed to prevent self-harm Severe malnutrition Continue tube feeds Urinary retention Larson placed 08/20/2017 Change Larson catheter every 4-6 weeks Diabetes mellitus type 2 Follow blood sugars Insulin sliding scale Diabetic diet Lantus 5 units bid Severe Sepsis: resolved Trach Site infection: Resolved HCAP: resolved C. Diff colitis: resolved DVT proph SCDs & heparin
[2017-11-07 11:17] LABS: ABG PCO2 86 mmHg (38-42); ABG PO2 63 mmHG (61-120)
--- NOTE | 2017-11-07 11:33 | XR ---
EXAM DATE: 11/07/2017 11:25 AM EDT AGE/SEX: 77 years / Male INDICATIONS: Short of breath CLINICAL DATA: This is the patient's subsequent encounter. Patient reports that signs and symptoms h ave been present for 2 months and indicates a pain score of Nonresponsive. MEDICAL/SURGICAL HISTORY: Diabetes mellitus type II. Hypertension. prostate carcinoma . trach eostomy COMPARISON: [facility], CHEST 1V SINGLE AP, 11/04/2017. . FINDINGS: Tracheostomy tube is present in satisfactory position. Mixed interstitial and alveolar process is see n in the left lung not significantly changed. Left lung base opacity is present may be due to a combi nation of consolidation and or pleural effusion. There is mild initial prominence in the right lung particularly right upper lung with slight pleural thickening not significantly changed. CONCLUSION: No appreciable change. Electronically signed by: Gerardo Luna MD 11/07/2017 11:31 AM EDT
--- NOTE | 2017-11-07 12:10 | CT ---
EXAM DATE: 11/07/2017 12:00 PM EDT AGE/SEX: 77 years / Male INDICATIONS: Shortness of breath. CLINICAL DATA: This is the patient's initial encounter. Patient reports that signs and symptoms have been present for 2 weeks and indicates a pain score of 0/10. MEDICAL/SURGICAL HISTORY: Diabetes. Carcinoma, prostatic. None. RADIATION DOSE: 8.44 CTDI (mGy) COMPARISON: No prior exams available for comparison. TECHNIQUE: Multiple contiguous axial images were obtained through the chest without contrast. Image s were obtained in suspended respiration using multiple row detector helical technique. Using automa ronny exposure control and adjustment of the mA and/or kV according to patient size, radiation dose was kept as low as reasonably achievable to obtain optimal diagnostic quality images. DICOM format imag e data is available electronically for review and comparison. FINDINGS: Lungs: There is a Parr change seen bilaterally with very prominent bulla and bleb seen in the rig ht upper lung. There is left lower lobe atelectasis. There is some increased interstitial markings s een throughout both lungs which are likely chronic. There are some suspected atelectasis in the right upper lobe. There is a calcified mass in the left lower lobe. Mediastinum: Calcified lymph nodes in the hilar regions bilaterally. Calcified lymph nodes are seen in the right paratracheal, precarinal and subcarinal regions. Calcifications are seen throughout the arterial system including the aorta and coronary arteries. There is a tracheostomy tube present. Pleurae: There is a moderate left pleural effusion and a mild right pleural effusion. Axillae: Unremarkable. Bony Structures: Unremarkable. Miscellaneous: The examination was extended to include the upper abdomen, and both adrenal glands ar e normal in size and configuration. CONCLUSION: 1. Chronic emphysematous change. There is also increased interstitial markings throughout the lungs which are likely chronic. 2. Suspected atelectasis in the left lower lobe and the right upper lobe. 3. Bilateral pleural effusions being moderate on the left and mild on the right. 4. Evidence of prior granulomatous exposure. Electronically signed by: Ino Cee MD 11/07/2017 12:08 PM EDT
[2017-11-07] MEDS ORDERED: Propofol Inj 500 MG/50 ML Vial ONE (12:11)
--- NOTE | 2017-11-07 12:27 | P.PNCC ---
Subjective Subjective Remarks/Hospital Course: This is a 77-year-old [place]an male/Mandarin speaking only. Date of admission 08/21/2017. Date of consultation 08/23/2017. Past medical history is documented as hypertension, gout and diabetes mellitus. He is on no home medications. He does have remote history of tuberculosis 10 years ago. He quit tobacco use 20 years ago. He presented to [facility] on 08/21/2017 with a 3-4 days of intermittent pain in this region that acutely acutely worsened on 08/20 . They state the pain is in the right upper quadrant and radiates to the upper thorax and around his back. Hospital workup included a CT pulmonary angiogram which revealed bilateral emphysema. Multiple bilateral pulmonary nodules present with the largest in the right lung measuring 2.8 cm and the largest in the left lung measuring 2.6 cm. Severe compressive atelectasis in the right lower lobe. Moderate-sized pulmonary effusion. Pleural thickening in the anterior inferior hemothorax. Right paratracheal lymph node 15 mm. 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 No lytic bone lesions. Also noted significant coronary artery and aortic atherosclerotic calcifications. Patient was evaluated by hematology. Recommended lung biopsy when stable. She has become increasingly short of breath and was transferred from a [facility]– [place] to [facility] at 70%. Patient became less responsive and we were consulted. Patient required intubation/central line placement is currently having a right pigtail catheter placed to remove fluid from right lung. 08/24: hypotensive this AM requiring levophed at 8 mcg/min. drained 600cc of serosanguinous fluid out of chest tube. responded successfully to straight-leg challenge. intubated, sedated. remains very critically ill. 08/25: Afebrile. Off all antihypertensives and vasopressin. Currently normal saline at 100 cc an hour. On propofol and fentanyl drips. 08/26: Afebrile. No tonsillar creatinine currently at 20 cc an hour. Remains on increased propofol drip at 40 mcg/kg/min secondary to severe agitation overnight and on attempted spontaneous breathing trials. Will try dexmedetomidine attempt to wean today. 08/27: Worsening lung infiltrates associated with hydration. Afebrile. Known diastolic dysfunction. He appears to be exquisitely sensitive to fluid balance. Presently converting to Precedex and will try spontaneous breathing trials. 08/28: Continued worsening bilateral lung infiltrates. IV fluid has been stopped yesterday, will add additional diuretics. Diffusion gradient worsened, unable to wean from ventilator. 08/29: Mild improvement in lung infiltrates after diuresis without harming renal function. Remains ventilator dependent. Biopsy yesterday, results pending. 08/30: Worsening gas exchange with deteriorating diffusion capacity and requirements for increased inspired oxygen concentration. This all despite 2 L diuresis. Await pathology results. 08/31: Lung infiltrates resolving with diuresis. Continues to behave like diastolic heart failure. Contraction alkalosis is developing will add a carbonic anhydrase inhibitor for a couple of days. T-max 100.8 but for the most part he has been afebrile. Lung mass does appear to be a malignancy. Agree with attempt to rebiopsy at some point. We will continue to diuresis until his kidneys squeak. At 7-10 days of antibiotics it may be best to stop treatment and reculture for fevers. I will defer to the pulmonary service. 09/01: remains intubated and sedated. continues to fail any weaning attempts. consulted palliative to assist in goals of care: may need tracheostomy for further aggressive care. 09/02: palliative meeting with family again today. no improvements. it has been greater than 10 days of full empiric antibiotics: will discontinue and re- culture for fever. 09/03: chest tube on water seal with minimal output. cxr unchanged. CT removed today on my eval. no other changes or improvements. unlikely to have favorable outcome. quite hypercarbic despite full vent support: will make changes to ventilation to assist with hypercarbic. 09/04: Remains sedated, orally intubated on mechanical ventilation. 09/05: Remains sedated, orally intubated on mechanical ventilation. Failed CPAP trials yesterday. 09/06: Sedated, arousable, orally intubated on mechanical ventilation. Failed CPAP trials yesterday. Family wishes to continue aggressive care and desire trach and PEG. 09/07: T-max 100.3. One bowel movement yesterday. Failed CPAP trials yesterday. OG tube plugged overnight and able to place new feeding tube at the present time. We will switch all medications to IV at the present time including amiodarone drip at 0.5 mg/min. Check digoxin level prior to resuming IV. 09/08: T-max 99.2. Currently afebrile. One bowel movement overnight. Plan for percutaneous tracheostomy today. GI consult for PEG placement. CT chest revealed small bilateral pleural effusions. Persistent right middle lobe mass which we will consult IR again for rebiopsy. Will ask pulmonary to see again 09/09: Remains on full vent support more critical today increasing oxygen requirement FiO2 at 65 of have increase PEEP to 10 to attempt wean oxygen. Air entry markedly diminished bilaterally. Chest x-ray shows bilateral prominent interstitial infiltrates. Fluid up by approximately 10 kg. I will discontinue half-normal saline. Lasix 40 mg IV 1 09/10: Patient remains critical showing agonal breathing on the ventilator. Bilateral coarse breath sounds. Chest x-ray shows bilateral patchy infiltrates improved left effusion after thoracentesis and removal of 1 L of fluid. However FiO2 requirement remains high at 65%. UO 1.5L in 24 hours. Lab work pending. IV steroids started for probable COPD exacerbation given history of smoking 09/11: Remains critical but slightly more stable. Breathing pattern has improved and oxygenation has improved after starting IV steroids for COPD exacerbation and thoracentesis on 09/09/2017. Currently FiO2 down to 50%, PEEP at 10. We will further wean. Sodium increased to 151 start quarter normal saline, increase Lasix. Family wished to proceed with full code. PEG today 09/12: Remains intubated sedated with propofol. Urine output 1.8 L. BUN/ creatinine slightly increased today 72/1.34. Will reduce Lasix dose also reduce Solu-Medrol. Vent dyssynchrony has improved but FiO2 remains high at 55% 09/13: Off all sedation for 24 hours. Apparently patient notes has had one family is at bedside asking questions. BUN/creatinine slightly improved 71/ 1.14 from 72/1.34. WBC count slightly improved to 20.7. FiO2 at 45% chest x- ray shows some interval improvement. Also Na improved to 147 09/14: Remains intubated off sedation. Slightly tachypneic on pressure support . Urine output approximately 1500 mL in 24 hours 09/15: Patient clearly more awake today seems to understand some of the commands. Concern about quadriparesis patient is not able to withdrawal to pain 4, even though it appears he does feel the pain. MRI of the C-spine ordered. Neurology consulted. Otherwise BUN/creatinine slightly improved 09/16: Patient remains quadriparetic, slight movement of the left upper extremity. MRI of the C-spine shows focal severe spinal canal stenosis at C4-5 , with increased signal within the body of the spinal cord at this level most likely representing some myelomalacia. Moderate diffuse broad-based bulging at C3-4 with some mild increased signal in the spinal cord at this level. Moderate spinal canal stenosis at C6-C7. Also there is evidence of tracheostomy site infection. 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 Discussed with Dr. Carvalho. Increase Solu-Medrol to 250 mg IV every 6 hours. Consult neurosurgery 09/17: Remains septic, remains quadriplegic. Slight movements of the left upper extremity noted. C. difficile positive p.o. vancomycin added by ID yesterday. Appreciate input from Dr. Victor. Patient hs severe upper cervical stenosis with myelopathy and resultant SCI/severe quadriplegia of the upper and lower extremities. Prognosis very poor per neurosurgery 09/18: Afebrile. Tube feeds are at goal. No change in neurological status. Left upper extremity movement only. 09/19: Resting comfortably in bed in no acute distress. Noted able to squeeze left hand in slightly squeeze right hand. Will move bilateral lower extremities slightly to command. Positive BM. 09/20: Status post C2 hemilaminectomy, C3 through [address] Victor yesterday. Tolerated procedure well. Restarting tube feeding today. Verbalizing words and does move left upper extremity spontaneously. 09/21: Afebrile. Neurological unchanged overnight. No bowel movement since 09/18. Tolerating tube feeds at goal. Discussed with care plan via electric range preparer yesterday and she expressed understanding. 09/22: Stable hemodynamics and acceptable gas exchange. Remains weak.Unable to wean from ventilator. 09/23: Remains effectively quadriplegic. Unable to wean from ventilator due to inadequate respiratory stamina. 09/24: Minimal movement nor response to voice or stimulation. No improvement from debilitated state over past several weeks. 09/25: Opens eyes but not to command. Tolerate CPAP trials for several hours now. 09/26: Opens eyes spontaneously. Does not tolerate CPAP and spontaneous breathing trials for long periods. Will need a long-term vent unit. 09/27: Tolerate spontaneous breathing trials for periods of several hours. Fatigues however and requires to be placed back on full ventilator support. Although he opens his eyes and appears to look and track he is severely debilitated and deteriorating. Despite aggressive nutritional support he continues to decline clinically. 09/28: Tolerating T piece trial for the first time today. He remains severely debilitated and there is been no change in the neurologic exam. 09/29: no changes. tolerating t-piece. no changes in neurologic exam. needs placement. acute medical problems have resolved. SUBJECTIVE: 09/30: Remains on T-piece. Breathing comfortably, neuro exam remains unchanged. No acute events reported overnight [facility] RECONSULT NOTE 11/07/17: Patient known to our service, please see detailed history above. In shor Mr. Palmer is a 77-year-old man with a medical history significant for hypertension, gout, diabetes who initially presented with pain in his groin and back. CT angiogram showed bilateral emphysema and pulmonary nodules -he underwent a biopsy which showed chronic inflammation, and reactive fibroblastic tissue. While coming of sedation patient noted to have quadriparesis and MRI showed findings consistent with acute spinal cord injury. He was also found to have significant spinal stenosis and underwent a laminectomy by neurosurgery. The patient's hospital stay was complicated by septic shock secondary to hospital- acquired pneumonia and C. difficile. Eventually weaned phi kia vent and had been on hospitalist service since 10/01/2017. Had been off the vent approximately >5 weeks. Today developed severe shortness of breath lethargy and hypoxia. A stat ABG showed pH 7.31 PCO2 86 PO2 63 on 40% oxygen with a saturation of 87%. Transferred to ICU and critical care consult was requested. I ordered a stat CT of the chest to evaluate left-sided infiltrate and effusion. Patient went to the CAT scan prior to arrival to the ICU. He had further desaturation into the 70s. In the ICU patient was emergently placed on mechanical ventilation and trach was reinflated. Clinical exam reveals significant bilateral wheezing large amount of secretions. Sputum culture was collected breathing treatments ordered. I will start him on empiric Zosyn and vancomycin awaiting cultures. COPD exacerbation will be treated with scheduled and as needed DuoNeb treatments and IV Solu-Medrol 60 mg every [address] of the chest shows left lower lobe and right upper lobe infiltrates and moderate sized left effusion. Left effusion will be drained with the pigtail catheter to improve oxygenation. Objective Vital Signs / I&O: Vital Signs 11/06/17 15:05 11/06/17 18:19 11/06/17 19:59 Temperature 98.3 F Pulse Rate 92 H Respiratory Rate 20 Blood Pressure 98/68 L Pulse Oximetry 96 97 11/06/17 20:00 11/07/17 00:00 11/07/17 04:00 Temperature 98.4 F 98.3 F 98.4 F Pulse Rate 103 H 110 H 96 H Respiratory Rate 18 20 16 Blood Pressure 159/76 H 150/81 H 148/84 H Pulse Oximetry 11/07/17 08:00 11/07/17 10:10 Temperature 98.6 F Pulse Rate 98 H 80 Respiratory Rate 20 17 Blood Pressure 138/68 Pulse Oximetry 99 Intake & Output 11/06/17 11/07/17 11/07/17 18:59 06:59 18:59 Intake Total 2120 / 2120 1448 / 1448 Output Total 2300 / 2300 1800 / 1800 Balance -180 / -180 -352 / -352 Weight 66.8 kg Intake: Oral 0 / 0 Tube Feeding 1440 / 1440 668 / 668 Tube Irrigant 80 / 80 180 / 180 Water Bolus Amount 600 / 600 600 / 600 Anesthesia Amount 0 / 0 Other 0 / 0 Output: Urine 0 / 0 Stool 0 / 0 0 / 0 Urine/Stool Mix 0 / 0 Estimated Blood Loss 600 / 600 Urine Amount (Catheter) 1700 / 1700 1800 / 1800 Indwelling Urethral Catheter 1700 / 1700 1800 / 1800 Other: Other Intake Source Saline Solution Date of Last Bowel Movement 11/06/17 11/06/17 10/15/17 # Bowel Movements 1 # Incontinent Bowel Movements 1 Result Diagrams: 11/07/17 08:03 11/07/17 08:03 Objective Remarks: GENERAL: 77-year-old male currently on t-piece via trach. Severe respiratory distress and lethargic SKIN: Warm and dry. No rash HEAD: Atraumatic. Normocephalic. Eyes sunken. EYES: Pupils equal and round . No conjunctival icterus. No injection or drainage. ENT: No nasal bleeding or discharge. Mucous membranes dry. Dry white secretions on the tongue NECK: Trachea midline. Trach site with minimal drainage. T piece in place. CARDIOVASCULAR: Tachycardic rate, regular rhythm. No JVD LUNGS: Coarse rhonchi and wheezes appreciated bilaterally. Air entry diminished bilaterally with basilar crackles GASTROINTESTINAL: Abdomen soft, non-tender, nondistended. PEG in place. MUSCULOSKELETAL: Extremities without significant peripheral edema. NEUROLOGICAL: Patient is more alert now with bag and mask ventilation. He moves upper extremities spontaneously withdraws lower extremities. He is Chilean speaking and cannot understand Macedonian so do not follow commands to me Assessment and Plan - Assessment and Plan Plan: Assessment and Plan Neuro/Psych: Toxic metabolic encephalopathy/CO2 narcosis Quadriparesis Severe cervical spinal cord stenosis, with acute spinal cord injury s/p C2 hemilaminectomy, C3 through 5 lamina plasty secondary to cervical stenosis, spinal stenosis by Dr. Victor Current somnolence secondary to metabolic encephalopathy and CO2 narcosis After being on mechanical ventilation mentation improved, however remained in respiratory distress and sedated with propofol now MRI C-spine 09/15: Focal severe spinal canal stenosis at C4-5. There is increased signal within the body of the spinal cord at this level most likely representing some myelomalacia. s/p C2 hemilaminectomy, C3 through 5 lamina plasty secondary to cervical stenosis, spinal stenosis by Dr. Victor Neurology Dr. Carvalho. Status post high-dose steroid which was eventually tapered off Head CT 08/23: 2 questionable tiny focal hemorrhages. MRI of brain 08/26 chronic small vessel ischemic and atrophic changes CT brain 09/05 revealed bilateral maxillary sinusitis. No other acute finding Acetaminophen 650 mg by tube every 6 hours as needed fever Oxycodone 5 mg every 4 hours, prn. Continue scheduled quetiapine CV: Hypotension may be medication induced Atrial fibrillation, now NSR Previously elevated troponin downward trend uncontrolled hypertension -resolved Atherosclerotic coronary artery disease Fluid resuscitation with 2 L normal saline bolus and 50 mL/h infusion Levophed to keep MAP> 65 if needed Check lactic acid stat, trend if high Currently in sinus rhythm tachycardia is secondary to SIRS/sepsis Resp: Acute, hypoxic hypercapnic respiratory failure COPD with exacerbation/Emphysema Healthcare associated pneumonia Large left-sided pleural effusion Multiple bilateral pulmonary masses vs infiltrate, biopsy shows inflammatory changes Placed emergently on mechanical ventilation PRVC mode 100% FiO2 IV Solu-Medrol 60 mg stat and every 6 hours DuoNeb every 4 hours scheduled and as needed, Ventilator bundle Plan for left pigtail chest tube placement continue inhaled budesonide 0.5/2 1 inhalation twice daily Previous Bilateral pleural effusion/status post chest tube right-sided transudative in nature. Chest tube removed 09/[address] pulmonary angiogram revealed 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 Right middle lobe 2.7 x 2.2 x 7's. Spiculated. Left lingula is 3.4 x 3.20 cm. Underlying pronounced emphysematous CT thorax 09/08 revealed multiple areas of consolidation bilaterally. Prior granulomatous disease. Focal consolidation or mass in the right middle lobe that appears unchanged. Lung mass biopsied on August 28 -results - CHRONIC INFLAMMATORY AND REACTIVE FIBROBLASTIC TISSUE CONTAINING ENTRAPPED BENIGN EPITHELIUM reconsult IR 09/08 for repeat biopsy Followed by Dr. Hardy/Dr. Sanchez pulmonology. s/p percutaneous tracheostomy 09/08 (Bryant/Michael). Status post thoracentesis left side 09/09 with 1 L fluid removed. No evidence of infection. GI: Hypoalbuminemia C. difficile colitis Acute protein calorie malnutrition -severe s/p PEG 09/11. Keep n.p.o. until clinically stable Lansoprazole for GI prophylaxis Lactulose 30 cc twice daily for bowel regimen/hyperammonemia P.o. vancomycin 250 for C. difficile completed : Urinary retention, possible urinary stricture Acute kidney injury-resolved Maintain Larson catheter. Monitor urine output, Accurate I's and O's significant difficulty due to obstruction which may be urethral stricture which prevented serial i/o. Avoid nephrotoxic drugs. ID: Severe sepsis HCAP Trach site infection - resolved C. difficile colitis-resolved Start Zosyn 4.5 g IV every 6 hours, vancomycin 1 g x1 Send sputum and blood cultures Pleural fluid studies ordered. Previously was seen by ID Endo: Diabetes mellitus History of gout Sliding scale insulin with NovoLog high regimen to maintain euglycemia Currently on insulin detemir 5 units subcu twice daily. May need to increase Levemir with addition of Solu-Medrol Holding home medications of allopurinol 300 mg daily and colchicine 0.6 mg as needed Holding home medications of metformin 500 mg twice daily Heme: Leukocytosis Normocytic anemia Monitor CBC daily. Follow trends Coags within normal limits Access Peripheral IV. Place central line if needed Prophylaxis -GI -lansoprazole. DVT -SCD/start Lovenox 40 mg daily Overall impression: Chronically ill [place]an gentleman now acutely ill with severe hypoxemic and hypercarbic respiratory failure severe sepsis. Plan for mechanical ventilatory support broad-spectrum antibiotic drainage and further studies of the pleural fluid. Prognosis very critical with guarded at this time ADDENDUM: Patient was given additional sedation for pigtail chest tube placement. Post sedation patient was hypotensive. Additional fluid bolus was given and Levophed had to be started. Propofol held. Once the blood pressure improves will attempt to wean Levophed. If cannot be weaned will need central line placement. CCT 78 MIN excluding procedures Code Status: ALT CODE Discussed Condition With: Dr. Graham
[2017-11-07] MEDS ORDERED: Sod Chloride 0.9% Inj 1,000 ML IV.SIG SCH (12:30)
[2017-11-07] MEDS ORDERED: Vancomycin Inj 1,000 MG in Sodium Chlor 0.9% Inj 250 ML IV.SIG SCH (13:00)
--- NOTE | 2017-11-07 13:10 | P.PCN ---
Date of procedure: 11/07/17 Pre-op diagnosis: Acute hypoxemic and hypercapnic respiratory failure Post-op diagnosis: same Procedure: US guided left pigtail chest tube placement for large Left pleural effusion A time-out was completed verifying correct patient, procedure, site, positioning , and special equipment if applicable. Procedure was done emergently due to severe hypoxemia. The patient was positioned appropriately for left chest tube placement and US was used to sean the site. The patients left chest was prepped and draped in sterile fashion. 1% Lidocaine was used to anesthetize the surrounding skin area. A 0.5 cm skin incision was made at the area marked. 18- gauge access needle was introduced into the pleural space over the inferior rib , and mildly red tinged, cloudy pleural fluid was obtained. Syringe was removed and guidewire was placed. Track was dilated with a 7 Tajik dilator which was then removed. A 8 Tajik pigtail chest tube was placed over the guidewire using Seldinger technique, following which the guidewire and the internal stiffener was removed. The chest tube was sutured securely to the skin with 3.0 silk and with stay-fix dressing. A pleuravac was attached to the chest tube and placed on -40 suction and a chest x-ray ordered. Initial output was 1000 ml (1 liter) of mildly red tinged, cloudy pleural fluid which will be sent for further studies Surgeon: Janes Mckinnon Estimated blood loss (mL): 1 Pathology: other (fluid studies requested) Condition: critical Disposition: ICU
[2017-11-07] MEDS ORDERED: Albumin Human 5% Inj 500 ML IV.SIG ONE (14:00)
[2017-11-07] MEDS ORDERED: Atropine Inj 1 MG/10 ML Syringe ONE (14:10)
--- NOTE | 2017-11-07 14:16 | XR ---
EXAM DATE: 11/07/2017 2:07 PM EDT AGE/SEX: 77 years / Male INDICATIONS: Evaluate for pneumothorax post chest tube placement. CLINICAL DATA: This is the patient's subsequent encounter. Patient reports that signs and symptoms h ave been present for 2 days and indicates a pain score of Nonresponsive. MEDICAL/SURGICAL HISTORY: Non-responsive. Non-responsive. COMPARISON: [facility], CHEST 1V SINGLE AP, 11/07/2017. . FINDINGS: Significant improvement in aeration of lungs since the prior study and the left lung is basically cyndee ar. There is a pigtail catheter chest tube in the left lower chest medially. No definite pneumothorax is seen for technique. Right apical pleural-based density and prominence of the markings have not ch anged. CONCLUSION: Left pleural effusion completely drained without pneumothorax. Electronically signed by: Gerardo Luna MD 11/07/2017 2:15 PM EDT
--- NOTE | 2017-11-07 14:36 | P.PCN ---
Date of procedure: 11/07/17 Pre-op diagnosis: Hypotension on pressors Post-op diagnosis: same Procedure: Left subclavian central line Central line checklist completed, timeout completed. Informed consent obtained from using web based research animal attendant. I wore a surgical cap, mask with protective eyewear, full gown and sterile gloves throughout the procedure. Left subclavian region was prepped using chlorhexidine scrub and draped in sterile fashion. Anesthesia was achieved over the vein using 1% lidocaine. The introducer needle was inserted into the left subclavian vein and venous blood was withdrawn. The syringe was removed and a guidewire was advanced into the introducer needle. A small incision was made at the skin surface with a scalpel and the introducer needle was exchanged for a dilator over the guidewire. After appropriate dilation was obtained, the dilator was exchanged over the wire for a triple lumen, 7F, antibiotic coated central venous catheter. The wire was removed and the catheter was sutured in place at 18 cm. A sterile central line dressing was placed over the catheter at the insertion site. The patient tolerated the procedure without any hemodynamic compromise. At time of procedure completion, all ports aspirated and flushed properly. Post-procedure chest x-ray is pending at this time. Anesthesia: local Surgeon: Janes Mckinnon Estimated blood loss (mL): 1 Pathology: none sent Condition: critical Disposition: ICU
[2017-11-07] MEDS: Midazolam 50 MG/50 ML Inj 50 MG/50 ML BAG IV.CONT PRN (15:00)
--- NOTE | 2017-11-07 15:05 | XR ---
EXAM DATE: 11/07/2017 3:01 PM EDT AGE/SEX: 77 years / Male INDICATIONS: left subclavian central line placement CLINICAL DATA: This is the patient's initial encounter. Patient reports that signs and symptoms have been present for 3 days and indicates a pain score of Nonresponsive. MEDICAL/SURGICAL HISTORY: Hypertension. Diabetes mellitus type II. Emphysema. a-fib . trach eostomy COMPARISON: [facility], CHEST 1V SINGLE AP, 11/07/2017. . FINDINGS: Tracheostomy is present in good position. Left subclavian central line is present with tip overlying SVC. No evidence of pneumothorax or other complication of placement. There is persistent patchy perih ilar and upper lung zone interstitial opacities. Stable slight blunting of the right costophrenic ang le. Small-caliber pigtail tube overlying the left lung base. Cardiac contours are stable. CONCLUSION: Satisfactory Central line positioning. No complication. Electronically signed by: Ino Burgos MD 11/07/2017 3:03 PM EDT
[2017-11-07] MEDS: Hyoscyamine Inj 0.5 MG/ML Ampul IV.PUSH SCH ×4 (15:29→21:37)
[2017-11-07] MEDS: Piperacil/Tazo 4.5 GM Premix 4.5 GM/100 ML BAG IV.SIG SCH ×2 (15:34→17:54)
[2017-11-07 15:56] LABS: Total Protein,Pleural Fluid 3.8 gm/dL
[2017-11-07] MEDS: Oral Hygiene Kit OROPHARYNG SCH (17:11)
[2017-11-07] MEDS: MethylPREDNISolone Sod Succinate Inj 125 MG/2 ML Vial IV.PUSH SCH (17:54)
--- NOTE | 2017-11-07 18:46 | P.PN ---
Subjective Interval history: was transferred to [facility] for respiratory distress Has low O2 sats. CT chest showed Bilateral effusions and Infiltrates. Now on Vent support and has a Chest tube on left which is draining . Physical Exam Vital signs: Vital Signs 11/06/17 19:59 11/06/17 20:00 11/07/17 00:00 Temperature 98.4 F 98.3 F Pulse Rate 103 H 110 H Respiratory Rate 18 20 Blood Pressure 159/76 H 150/81 H Pulse Oximetry 97 11/07/17 04:00 11/07/17 08:00 11/07/17 10:10 Temperature 98.4 F 98.6 F Pulse Rate 96 H 98 H 80 Respiratory Rate 16 20 17 Blood Pressure 148/84 H 138/68 Pulse Oximetry 99 11/07/17 12:00 11/07/17 12:25 11/07/17 15:15 Temperature 98 F Pulse Rate 82 72 Respiratory Rate 13 28 H Blood Pressure 120/76 Pulse Oximetry 93 L 11/07/17 16:00 11/07/17 16:29 Temperature 98.1 F Pulse Rate 68 Respiratory Rate 18 9 L Blood Pressure 127/77 Pulse Oximetry 100 Intake & Output 11/06/17 11/07/17 11/07/17 18:59 06:59 18:59 Intake Total 2120 / 2120 1448 / 1448 700 / 700 Output Total 2300 / 2300 1800 / 1800 1440 / 1440 Balance -180 / -180 -352 / -352 -740 / -740 Weight 66.8 kg Intake: IV 700 / 700 Alburx 5% Inj 500 ML @ 250 mls/ 500 / 500 hr IV.SIG ONCE ONE Rx#:[id number] Zosyn 4.5 GM Premix 4.5 gm In 200 / 200 100 ml @ 200 mls/hr IV.SIG Q6H MICHELET Rx#:[id number] Oral 0 / 0 Tube Feeding 1440 / 1440 668 / 668 Tube Irrigant 80 / 80 180 / 180 Water Bolus Amount 600 / 600 600 / 600 Anesthesia Amount 0 / 0 Other 0 / 0 Output: Urine 0 / 0 Stool 0 / 0 0 / 0 Urine/Stool Mix 0 / 0 Estimated Blood Loss 600 / 600 Urine Amount (Catheter) 1700 / 1700 1800 / 1800 200 / 200 Indwelling Urethral Catheter 1700 / 1700 1800 / 1800 200 / 200 Chest Tube Drainage 1240 / 1240 Left 1240 / 1240 Other: Other Intake Source Saline Solution Date of Last Bowel Movement 11/06/17 11/06/17 11/07/17 # Bowel Movements 1 # Incontinent Bowel Movements 1 Narrative: GENERAL: NAD, A&Ox0, on the vent HEAD: Normocephalic. NECK: Supple, trachea midline. No lymphadenopathy. Tracheostomy present. EYES: No scleral icterus. No injection or drainage. CARDIOVASCULAR: Regular rate and rhythm without murmurs, gallops, or rubs. RESPIRATORY: Breath sounds equal bilaterally. decreased breath sounds . GASTROINTESTINAL: Abdomen soft, non-tender, nondistended. No erythema at tube feed site. MUSCULOSKELETAL: No cyanosis, or edema. weak legs. SKIN: Warm and dry. NEURO: Global neurological deficits. - Urinary Catheter Management Indwelling Urethral Catheter Cath placed during this visit: yes Urethral indwelling: Yes Reason for continuing: Acute urinary retention Insertion date: 08/20/17 Insertion time: 17:00 Results - Labs CBC & Chem 7: 11/07/17 08:03 11/07/17 08:03 Laboratory Results - last 24 hr 11/07/17 11/07/17 11/07/17 00:12 05:28 08:03 WBC 12.4 H RBC 3.43 L Hgb 10.2 L Hct 32.6 L MCV 95.0 MCH 29.7 MCHC 31.2 L RDW 17.0 Plt Count 285 MPV 7.5 Neut % (Auto) 70.1 H Lymph % (Auto) 18.3 [place] % (Auto) 9.2 H Eos % (Auto) 2.1 Baso % (Auto) 0.3 Neut # (Auto) 8.7 H Lymph # (Auto) 2.3 [place] # (Auto) 1.1 H Eos # (Auto) 0.3 Baso # (Auto) 0.0 WBC Differential . Differential Comment Auto diff final Puncture Site Patient Temperature O2 Saturation ABG pH ABG pCO2 ABG pO2 ABG HCO3 ABG O2 Content ABG Base Excess ABG Methemoglobin Dave Test Hemoglobin Carboxyhemoglobin O2 Delivery Device Inspired O2 Critical Value Sodium Potassium Chloride Carbon Dioxide Anion Gap BUN Creatinine Estimated GFR POC Glucose 159 H 143 H Random Glucose Lactic Acid Calcium Total Bilirubin AST ALT Alkaline Phosphatase Total Protein Albumin Pleural pH Pleural Total Protein Pleural LDH Pleural Glucose Pleural Amylase 11/07/17 11/07/1711/07/18 08:03 10:59 13:05 WBC RBC Hgb Hct MCV MCH MCHC RDW Plt Count MPV Neut % (Auto) Lymph % (Auto) [place] % (Auto) Eos % (Auto) Baso % (Auto) Neut # (Auto) Lymph # (Auto) [place] # (Auto) Eos # (Auto) Baso # (Auto) WBC Differential Differential Comment Puncture Site Right radial Patient Temperature 98.6 O2 Saturation 87 L* ABG pH 7.31 L ABG pCO2 86 H* ABG pO2 63 ABG HCO3 42 H ABG O2 Content 13.4 ABG Base Excess 15.0 H ABG Methemoglobin 1.2 Dave Test Present Hemoglobin 10.9 L Carboxyhemoglobin 2.1 O2 Delivery Device T tube Inspired O2 40 Critical Value Yes Sodium 142 Potassium 4.5 Chloride 96 L Carbon Dioxide 39.3 H Anion Gap 7 BUN 33 H Creatinine 0.47 L Estimated GFR Greater than 89 POC Glucose Random Glucose 166 H Lactic Acid Calcium 9.1 Total Bilirubin 0.3 AST 30 ALT 29 Alkaline Phosphatase 140 H Total Protein 7.6 Albumin 2.6 L Pleural pH 8.0 Pleural Total Protein 3.8 Pleural LDH 175 Pleural Glucose 161 Pleural Amylase 26 11/07/17 11/07/17 11/07/17 14:35 14:59 18:02 WBC RBC Hgb Hct MCV MCH MCHC RDW Plt Count MPV Neut % (Auto) Lymph % (Auto) [place] % (Auto) Eos % (Auto) Baso % (Auto) Neut # (Auto) Lymph # (Auto) [place] # (Auto) Eos # (Auto) Baso # (Auto) WBC Differential Differential Comment Puncture Site Patient Temperature O2 Saturation ABG pH ABG pCO2 ABG pO2 ABG HCO3 ABG O2 Content ABG Base Excess ABG Methemoglobin Dave Test Hemoglobin Carboxyhemoglobin O2 Delivery Device Inspired O2 Critical Value Sodium Potassium Chloride Carbon Dioxide Anion Gap BUN Creatinine Estimated GFR POC Glucose 124 H 157 H Random Glucose Lactic Acid 1.1 Calcium Total Bilirubin AST ALT Alkaline Phosphatase Total Protein Albumin Pleural pH Pleural Total Protein Pleural LDH Pleural Glucose Pleural Amylase Microbiology 11/07/17 13:05 Sputum - Endotracheal Gram Stain - Final 10/31/17 10:15 Sputum - Endotracheal Acid Fast Bacilli Smear - Final No acid fast bacilli seen 10/31/17 10:15 Sputum - Endotracheal Mycobacterial Culture - Preliminary No growth in 1 week - Imaging Impressions Chest X-Ray 11/07/17 00:00 CONCLUSION: Left pleural effusion completely drained without pneumothorax. Chest X-Ray 11/07/17 10:55 CONCLUSION: No appreciable change. Chest CT 11/07/17 11:33 CONCLUSION: 1. Chronic emphysematous change. There is also increased interstitial markings throughout the lungs which are likely chronic. 2. Suspected atelectasis in the left lower lobe and the right upper lobe. 3. Bilateral pleural effusions being moderate on the left and mild on the right. 4. Evidence of prior granulomatous exposure. Chest X-Ray 11/07/17 14:27 CONCLUSION: Satisfactory Central line positioning. No complication. - Procedures 08/23- intubation 09/03- bronchoscopy, lung biopsy, thoracentesis 09/08- tracheostomy 09/11- PEG placement Assessment and Plan - Assessment (1) Cervical myelopathy Code(s): G95.9 - Disease of spinal cord, unspecified Status: Acute (2) Respiratory failure Code(s): J96.90 - Respiratory failure, unspecified, unspecified whether with hypoxia or hypercapnia Status: Acute (3) SVT (supraventricular tachycardia) Code(s): I47.1 - Supraventricular tachycardia Status: Acute (4) Lung mass Code(s): R91.8 - Other nonspecific abnormal finding of lung field Status: Acute (5) Diabetes Code(s): E11.9 - Type 2 diabetes mellitus without complications Status: Acute (6) Gout Code(s): M10.9 - Gout, unspecified Status: Acute (7) Spinal stenosis Code(s): M48.00 - Spinal stenosis, site unspecified Status: Acute (8) Dyspnea Code(s): R06.00 - Dyspnea, unspecified Status: Acute - Plan 1. Cont ventilator support and wean to T Bar in am. 2. Trach lavage and suction PRN 3. Cont Duoneb nebs qid. 4. Chest Xray BMP ,CBC in am 5. Tube feeds at 60CC 6. PT evaluation. 7. Will have chest tube to drain. 8. Continue antibiotics per DR Mckinnon 9. Solumedrol 40 mg IV Q6H
[2017-11-07 18:58] LABS: Basophils,Pleural Fluid 2 %; Lymphocytes,Pleural Fluid 91 %; Mesothelial,Pleural Fluid 1 %; Monocytes,Pleural Fluid 3 %
[2017-11-07 18:59] LABS: Neutrophils,Pleural Fluid 0 %; RBC,Pleural Fluid 17152 /mm3 (0-0)
[2017-11-07] MEDS: Chlorhexidine 0.12% Oral Kit 15 ML UDC OROPHARYNG SCH (20:30)
[2017-11-08] MEDS: MethylPREDNISolone Sod Succinate Inj 125 MG/2 ML Vial IV.PUSH SCH ×4 (00:41→18:45)
[2017-11-08] MEDS: Oral Hygiene Kit OROPHARYNG SCH ×4 (00:41→16:47)
[2017-11-08] MEDS: Insulin NovoLOG Aspart Correctional Sugar Inj SQ SCH ×4 (00:41→18:46)
[2017-11-08] MEDS: Piperacil/Tazo 4.5 GM Premix 4.5 GM/100 ML BAG IV.SIG SCH ×4 (00:42→18:46)
[2017-11-08] MEDS: Hyoscyamine Inj 0.5 MG/ML Ampul IV.PUSH SCH ×2 (01:58→05:42)
--- NOTE | 2017-11-08 05:21 | XR ---
EXAM DATE: 11/08/2017 4:46 AM EDT AGE/SEX: 77 years / Male INDICATIONS: Infiltrate. Respiratory status. CLINICAL DATA: This is the patient's subsequent encounter. Patient reports that signs and symptoms h ave been present for 4 - 6 days and indicates a pain score of Nonresponsive. MEDICAL/SURGICAL HISTORY: Non-responsive. Non-responsive. COMPARISON: [facility] [place], CHEST 1V SINGLE AP, 11/07/2017. . FINDINGS: A single AP view of the chest demonstrates patchy bilateral predominantly interstitial opacities in t he perihilar and upper lobe distributions. Some pleural thickening persists in the right apex. Develo ping atelectasis in the left base. Stable position of tracheostomy and left subclavian central venous catheters. Heart size is normal. Degenerative spurring of the dorsal spine CONCLUSION: 1. Patchy predominantly left perihilar and right upper lobe interstitial process. Some developing le ft basilar atelectasis. 2. Heart size is normal. Electronically signed by: Deven Flaherty MD 11/08/2017 5:19 AM EDT
[2017-11-08 06:26] LABS: Hematocrit 27.9 % (39.0-51.0); Hemoglobin 9.3 gm/dL (13.0-17.0); Mean Corpuscular HGB Conc 33.4 % (32.0-36.0); Mean Corpuscular Volume 92.9 fL (80.0-100.0); Mean Platelet Volume 7.7 fL (7.0-11.0); Platelet Count 255 th/mm3 (150-450); Red Cell Distribution Width 16.7 % (11.6-17.2); White Blood Count 10.4 th/mm3 (4.0-11.0)
[2017-11-08 06:50] LABS: Alanine Aminotransferase 23 U/L (12-78); Albumin 2.6 g/dL (3.4-5.0); Anion Gap 6 meq/L (5-15); Aspartate Aminotransferase 15 U/L (15-37); Blood Urea Nitrogen 32 mg/dL (7-18); Carbon Dioxide 36.2 meq/L (21.0-32.0); Chloride 99 meq/L (98-107); Glomerular Filtration Rate Greater Than 89 mL/min (>89); Glucose,Random 253 mg/dL (74-106); Potassium 4.3 meq/L (3.5-5.1); Sodium 141 meq/L (136-145)
[2017-11-08 07:13] LABS: Alkaline Phosphatase 111 U/L (45-117)
[2017-11-08] MEDS: Chlorhexidine 0.12% Oral Kit 15 ML UDC OROPHARYNG SCH ×2 (09:31→20:17)
[2017-11-08] MEDS: Metoprolol Tartrate 50 MG Tablet NG/OG SCH ×2 (09:31→20:18)
[2017-11-08] MEDS: QUEtiapine 25 MG Tablet NG/OG SCH ×2 (09:48→20:18)
[2017-11-08] MEDS: Enoxaparin Inj 40 MG/0.4 ML Syringe SQ SCH (09:48)
[2017-11-08] MEDS: Insulin Detemir Inj 1,000 UNIT/10 ML Vial SQ SCH ×2 (09:48→20:17)
[2017-11-08] MEDS: Midazolam 50 MG/50 ML Inj 50 MG/50 ML BAG IV.CONT PRN (14:52)
--- NOTE | 2017-11-08 15:21 | P.PNCC ---
Subjective Subjective Remarks/Hospital Course: This is a 77-year-old Spanish male/Mandarin speaking only. Date of admission 08/21/2017. Date of consultation 08/23/2017. Past medical history is documented as hypertension, gout and diabetes mellitus. He is on no home medications. He does have remote history of tuberculosis 10 years ago. He quit tobacco use 20 years ago. He presented to [facility] on 08/21/2017 with a 3-4 days of intermittent pain in this region that acutely acutely worsened on 08/20 . They state the pain is in the right upper quadrant and radiates to the upper thorax and around his back. Hospital workup included a CT pulmonary angiogram which revealed bilateral emphysema. Multiple bilateral pulmonary nodules present with the largest in the right lung measuring 2.8 cm and the largest in the left lung measuring 2.6 cm. Severe compressive atelectasis in the right lower lobe. Moderate-sized pulmonary effusion. Pleural thickening in the anterior inferior hemothorax. Right paratracheal lymph node 15 mm. 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 No lytic bone lesions. Also noted significant coronary artery and aortic atherosclerotic calcifications. Patient was evaluated by hematology. Recommended lung biopsy when stable. She has become increasingly short of breath and was transferred from a [facility] to [facility] at 70%. Patient became less responsive and we were consulted. Patient required intubation/central line placement is currently having a right pigtail catheter placed to remove fluid from right lung. 08/24: hypotensive this AM requiring levophed at 8 mcg/min. drained 600cc of serosanguinous fluid out of chest tube. responded successfully to straight-leg challenge. intubated, sedated. remains very critically ill. 08/25: Afebrile. Off all antihypertensives and vasopressin. Currently normal saline at 100 cc an hour. On propofol and fentanyl drips. 08/26: Afebrile. No tonsillar creatinine currently at 20 cc an hour. Remains on increased propofol drip at 40 mcg/kg/min secondary to severe agitation overnight and on attempted spontaneous breathing trials. Will try dexmedetomidine attempt to wean today. 08/27: Worsening lung infiltrates associated with hydration. Afebrile. Known diastolic dysfunction. He appears to be exquisitely sensitive to fluid balance. Presently converting to Precedex and will try spontaneous breathing trials. 08/28: Continued worsening bilateral lung infiltrates. IV fluid has been stopped yesterday, will add additional diuretics. Diffusion gradient worsened, unable to wean from ventilator. 08/29: Mild improvement in lung infiltrates after diuresis without harming renal function. Remains ventilator dependent. Biopsy yesterday, results pending. 08/30: Worsening gas exchange with deteriorating diffusion capacity and requirements for increased inspired oxygen concentration. This all despite 2 L diuresis. Await pathology results. 08/31: Lung infiltrates resolving with diuresis. Continues to behave like diastolic heart failure. Contraction alkalosis is developing will add a carbonic anhydrase inhibitor for a couple of days. T-max 100.8 but for the most part he has been afebrile. Lung mass does appear to be a malignancy. Agree with attempt to rebiopsy at some point. We will continue to diuresis until his kidneys squeak. At 7-10 days of antibiotics it may be best to stop treatment and reculture for fevers. I will defer to the pulmonary service. 09/01: remains intubated and sedated. continues to fail any weaning attempts. consulted palliative to assist in goals of care: may need tracheostomy for further aggressive care. 09/02: palliative meeting with family again today. no improvements. it has been greater than 10 days of full empiric antibiotics: will discontinue and re- culture for fever. 09/03: chest tube on water seal with minimal output. cxr unchanged. CT removed today on my eval. no other changes or improvements. unlikely to have favorable outcome. quite hypercarbic despite full vent support: will make changes to ventilation to assist with hypercarbic. 09/04: Remains sedated, orally intubated on mechanical ventilation. 09/05: Remains sedated, orally intubated on mechanical ventilation. Failed CPAP trials yesterday. 09/06: Sedated, arousable, orally intubated on mechanical ventilation. Failed CPAP trials yesterday. Family wishes to continue aggressive care and desire trach and PEG. 09/07: T-max 100.3. One bowel movement yesterday. Failed CPAP trials yesterday. OG tube plugged overnight and able to place new feeding tube at the present time. We will switch all medications to IV at the present time including amiodarone drip at 0.5 mg/min. Check digoxin level prior to resuming IV. 09/08: T-max 99.2. Currently afebrile. One bowel movement overnight. Plan for percutaneous tracheostomy today. GI consult for PEG placement. CT chest revealed small bilateral pleural effusions. Persistent right middle lobe mass which we will consult IR again for rebiopsy. Will ask pulmonary to see again 09/09: Remains on full vent support more critical today increasing oxygen requirement FiO2 at 65 of have increase PEEP to 10 to attempt wean oxygen. Air entry markedly diminished bilaterally. Chest x-ray shows bilateral prominent interstitial infiltrates. Fluid up by approximately 10 kg. I will discontinue half-normal saline. Lasix 40 mg IV 1 09/10: Patient remains critical showing agonal breathing on the ventilator. Bilateral coarse breath sounds. Chest x-ray shows bilateral patchy infiltrates improved left effusion after thoracentesis and removal of 1 L of fluid. However FiO2 requirement remains high at 65%. UO 1.5L in 24 hours. Lab work pending. IV steroids started for probable COPD exacerbation given history of smoking 09/11: Remains critical but slightly more stable. Breathing pattern has improved and oxygenation has improved after starting IV steroids for COPD exacerbation and thoracentesis on 09/09/2017. Currently FiO2 down to 50%, PEEP at 10. We will further wean. Sodium increased to 151 start quarter normal saline, increase Lasix. Family wished to proceed with full code. PEG today 09/12: Remains intubated sedated with propofol. Urine output 1.8 L. BUN/ creatinine slightly increased today 72/1.34. Will reduce Lasix dose also reduce Solu-Medrol. Vent dyssynchrony has improved but FiO2 remains high at 55% 09/13: Off all sedation for 24 hours. Apparently patient notes has had one family is at bedside asking questions. BUN/creatinine slightly improved 71/ 1.14 from 72/1.34. WBC count slightly improved to 20.7. FiO2 at 45% chest x- ray shows some interval improvement. Also Na improved to 147 09/14: Remains intubated off sedation. Slightly tachypneic on pressure support . Urine output approximately 1500 mL in 24 hours 09/15: Patient clearly more awake today seems to understand some of the commands. Concern about quadriparesis patient is not able to withdrawal to pain 4, even though it appears he does feel the pain. MRI of the C-spine ordered. Neurology consulted. Otherwise BUN/creatinine slightly improved 09/16: Patient remains quadriparetic, slight movement of the left upper extremity. MRI of the C-spine shows focal severe spinal canal stenosis at C4-5 , with increased signal within the body of the spinal cord at this level most likely representing some myelomalacia. Moderate diffuse broad-based bulging at C3-4 with some mild increased signal in the spinal cord at this level. Moderate spinal canal stenosis at C6-C7. Also there is evidence of tracheostomy site infection. Explained MRI findings to son and patient's using electronic sheet metal former. Discussed with Dr. Carvalho. Increase Solu-Medrol to 250 mg IV every 6 hours. Consult neurosurgery 09/17: Remains septic, remains quadriplegic. Slight movements of the left upper extremity noted. C. difficile positive p.o. vancomycin added by ID yesterday. Appreciate input from Dr. Victor. Patient hs severe upper cervical stenosis with myelopathy and resultant SCI/severe quadriplegia of the upper and lower extremities. Prognosis very poor per neurosurgery 09/18: Afebrile. Tube feeds are at goal. No change in neurological status. Left upper extremity movement only. 09/19: Resting comfortably in bed in no acute distress. Noted able to squeeze left hand in slightly squeeze right hand. Will move bilateral lower extremities slightly to command. Positive BM. 09/20: Status post C2 hemilaminectomy, C3 through [address] Victor yesterday. Tolerated procedure well. Restarting tube feeding today. Verbalizing words and does move left upper extremity spontaneously. 09/21: Afebrile. Neurological unchanged overnight. No bowel movement since 09/18. Tolerating tube feeds at goal. Discussed with care plan via diplomatic interpreter/translator yesterday and she expressed understanding. 09/22: Stable hemodynamics and acceptable gas exchange. Remains weak.Unable to wean from ventilator. 09/23: Remains effectively quadriplegic. Unable to wean from ventilator due to inadequate respiratory stamina. 09/24: Minimal movement nor response to voice or stimulation. No improvement from debilitated state over past several weeks. 09/25: Opens eyes but not to command. Tolerate CPAP trials for several hours now. 09/26: Opens eyes spontaneously. Does not tolerate CPAP and spontaneous breathing trials for long periods. Will need a long-term vent unit. 09/27: Tolerate spontaneous breathing trials for periods of several hours. Fatigues however and requires to be placed back on full ventilator support. Although he opens his eyes and appears to look and track he is severely debilitated and deteriorating. Despite aggressive nutritional support he continues to decline clinically. 09/28: Tolerating T piece trial for the first time today. He remains severely debilitated and there is been no change in the neurologic exam. 09/29: no changes. tolerating t-piece. no changes in neurologic exam. needs placement. acute medical problems have resolved. SUBJECTIVE: 09/30: Remains on T-piece. Breathing comfortably, neuro exam remains unchanged. No acute events reported overnight [facility] RECONSULT NOTE 11/07/17: Patient known to our service, please see detailed history above. In shor Mr. Palmer is a 77-year-old man with a medical history significant for hypertension, gout, diabetes who initially presented with pain in his groin and back. CT angiogram showed bilateral emphysema and pulmonary nodules -he underwent a biopsy which showed chronic inflammation, and reactive fibroblastic tissue. While coming of sedation patient noted to have quadriparesis and MRI showed findings consistent with acute spinal cord injury. He was also found to have significant spinal stenosis and underwent a laminectomy by neurosurgery. The patient's hospital stay was complicated by septic shock secondary to hospital- acquired pneumonia and C. difficile. Eventually weaned off the vent and had been on hospitalist service since 10/01/2017. Had been off the vent approximately >5 weeks. Today developed severe shortness of breath lethargy and hypoxia. A stat ABG showed pH 7.31 PCO2 86 PO2 63 on 40% oxygen with a saturation of 87%. Transferred to ICU and critical care consult was requested. I ordered a stat CT of the chest to evaluate left-sided infiltrate and effusion. Patient went to the CAT scan prior to arrival to the ICU. He had further desaturation into the 70s. In the ICU patient was emergently placed on mechanical ventilation and trach was reinflated. Clinical exam reveals significant bilateral wheezing large amount of secretions. Sputum culture was collected breathing treatments ordered. I will start him on empiric Zosyn and vancomycin awaiting cultures. COPD exacerbation will be treated with scheduled and as needed DuoNeb treatments and IV Solu-Medrol 60 mg every [address] of the chest shows left lower lobe and right upper lobe infiltrates and moderate sized left effusion. Left effusion will be drained with the pigtail catheter to improve oxygenation. 11/08: Chest x-ray clear of effusion following drainage tube placement. Oxygenation on ventilator improved. Patient remains very weak but we will progress with spontaneous breathing trials and attempt to get him back to trach collar. He is acceptably well hydrated at this time and hemodynamically stable. Objective Vital Signs / I&O: Vital Signs 11/07/17 16:00 11/07/17 16:29 11/07/17 19:00 Temperature 98.1 F Pulse Rate 68 Respiratory Rate 18 9 L Blood Pressure 127/77 Pulse Oximetry 100 100 11/07/17 19:19 11/07/17 19:21 11/07/17 20:00 Temperature 98.3 F Pulse Rate 88 73 Respiratory Rate 29 H 25 H 22 Blood Pressure 140/79 Pulse Oximetry 100 11/07/17 23:15 11/07/17 23:25 11/07/17 23:26 Temperature Pulse Rate 78 70 Respiratory Rate 28 H 28 H Blood Pressure Pulse Oximetry 11/08/17 00:00 11/08/17 03:28 11/08/17 03:29 Temperature 97.5 F L Pulse Rate 68 68 Respiratory Rate 16 16 16 Blood Pressure 120/70 Pulse Oximetry 100 11/08/17 04:00 11/08/17 07:30 11/08/17 11:26 Temperature 97.8 F Pulse Rate 77 70 80 Respiratory Rate 22 20 20 Blood Pressure 96/60 L Pulse Oximetry 100 100 Intake & Output 11/07/17 11/08/17 11/08/17 18:59 06:59 18:59 Intake Total 700 / 700 1601 / 1601 150 / 150 Output Total 1440 / 1440 700 / 700 Balance -740 / -740 901 / 901 150 / 150 Weight 63.2 kg Intake: IV 700 / 700 350 / 350 150 / 150 Versed Inj 50 mg In 50 ml @ 2 50 / 50 MG/HR 2 mls/hr IV.CONT TITRATE PRN Rx#:[id number] Alburx 5% Inj 500 ML @ 250 mls/ 500 / 500 hr IV.SIG ONCE ONE Rx#:[id number] Levophed-Dextrose 4 mg/250 ml 250 / 250 Drip 4 mg In 250 ml @ 2 MCG/MIN 7.5 mls/hr IV.SIG TITRATE PRN Rx#:[id number] Zosyn 4.5 GM Premix 4.5 gm In 200 / 200 100 / 100 100 / 100 100 ml @ 200 mls/hr IV.SIG Q6H [facility] Rx#:[id number] Oral 0 / 0 Tube Feeding 531 / 531 Tube Irrigant 120 / 120 Water Bolus Amount 600 / 600 Anesthesia Amount 0 / 0 Other 0 / 0 Output: Urine 0 / 0 Stool 0 / 0 Urine Amount (Catheter) 200 / 200 650 / 650 Indwelling Urethral Catheter 200 / 200 650 / 650 Chest Tube Drainage 1240 / 1240 50 / 50 Left 1240 / 1240 50 / 50 Other: Other Intake Source Saline Solution Date of Last Bowel Movement 11/07/17 11/07/17 Result Diagrams: 11/08/17 05:55 11/08/17 05:55 Objective Remarks: GENERAL: 77-year-old male currently on t-piece via trach. Comfortable on ventilator. SKIN: Warm and dry. No rash HEAD: Atraumatic. Normocephalic. Eyes sunken. EYES: Pupils equal and round . No conjunctival icterus. No injection or drainage. ENT: No nasal bleeding or discharge. Mucous membranes dry. Dry white secretions on the tongue NECK: Trachea midline. Trach site with minimal drainage. On mechanical ventilation via tracheostomy. CARDIOVASCULAR: Tachycardic rate, regular rhythm. No JVD LUNGS: Coarse rhonchi and wheezes appreciated bilaterally. Air entry improved left side today. GASTROINTESTINAL: Abdomen soft, non-tender, nondistended. PEG in place. No guarding. MUSCULOSKELETAL: Extremities without significant peripheral edema. Well- perfused. NEUROLOGICAL: Opens eyes to loud voice. He moves upper extremities spontaneously, withdraws lower extremities. He is Spanish speaking and cannot understand Nepali so do not follow commands to me Assessment and Plan - Assessment and Plan Plan: Assessment and Plan Neuro/Psych: Toxic metabolic encephalopathy/CO2 narcosis Quadriparesis Severe cervical spinal cord stenosis, with acute spinal cord injury s/p C2 hemilaminectomy, C3 through 5 lamina plasty secondary to cervical stenosis, spinal stenosis by Dr. Victor Current somnolence secondary to metabolic encephalopathy and CO2 narcosis After being on mechanical ventilation mentation improved, however remained in respiratory distress and sedated with propofol now MRI C-spine 09/15: Focal severe spinal canal stenosis at C4-5. There is increased signal within the body of the spinal cord at this level most likely representing some myelomalacia. s/p C2 hemilaminectomy, C3 through 5 lamina plasty secondary to cervical stenosis, spinal stenosis by Dr. Victor Neurology Dr. Carvalho. Status post high-dose steroid which was eventually tapered off Head CT 08/23: 2 questionable tiny focal hemorrhages. MRI of brain 08/26 chronic small vessel ischemic and atrophic changes CT brain 09/05 revealed bilateral maxillary sinusitis. No other acute finding Acetaminophen 650 mg by tube every 6 hours as needed fever Oxycodone 5 mg every 4 hours, prn. Continue scheduled quetiapine CV: Hypotension may be medication induced Atrial fibrillation, now NSR Previously elevated troponin downward trend uncontrolled hypertension -resolved Atherosclerotic coronary artery disease Fluid resuscitation with 2 L normal saline bolus and 50 mL/h infusion Levophed to keep MAP> 65 if needed Check lactic acid stat, trend if high Currently in sinus rhythm tachycardia is secondary to SIRS/sepsis Resp: Acute, hypoxic hypercapnic respiratory failure COPD with exacerbation/Emphysema Healthcare associated pneumonia Large left-sided pleural effusion Multiple bilateral pulmonary masses vs infiltrate, biopsy shows inflammatory changes Placed emergently on mechanical ventilation PRVC mode 100% FiO2 IV Solu-Medrol 60 mg stat and every 6 hours DuoNeb every 4 hours scheduled and as needed, Ventilator bundle Plan for left pigtail chest tube placement continue inhaled budesonide 0.5/2 1 inhalation twice daily Previous Bilateral pleural effusion/status post chest tube right-sided transudative in nature. Chest tube removed 09/[address] pulmonary angiogram revealed 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 Right middle lobe 2.7 x 2.2 x 7's. Spiculated. Left lingula is 3.4 x 3.20 cm. Underlying pronounced emphysematous CT thorax 09/08 revealed multiple areas of consolidation bilaterally. Prior granulomatous disease. Focal consolidation or mass in the right middle lobe that appears unchanged. Lung mass biopsied on August 28 -results - CHRONIC INFLAMMATORY AND REACTIVE FIBROBLASTIC TISSUE CONTAINING ENTRAPPED BENIGN EPITHELIUM reconsult IR 09/08 for repeat biopsy Followed by Dr. Hardy/Dr. Sanchez pulmonology. s/p percutaneous tracheostomy 09/08 (Bryant/Michael). Status post thoracentesis left side 09/09 with 1 L fluid removed. No evidence of infection. GI: Hypoalbuminemia C. difficile colitis Acute protein calorie malnutrition -severe s/p PEG 09/11. Keep n.p.o. until clinically stable Lansoprazole for GI prophylaxis Lactulose 30 cc twice daily for bowel regimen/hyperammonemia P.o. vancomycin 250 for C. difficile completed : Urinary retention, possible urinary stricture Acute kidney injury-resolved Maintain Larson catheter. Monitor urine output, Accurate I's and O's significant difficulty due to obstruction which may be urethral stricture which prevented serial i/o. Avoid nephrotoxic drugs. ID: Severe sepsis HCAP Trach site infection - resolved C. difficile colitis-resolved Start Zosyn 4.5 g IV every 6 hours, vancomycin 1 g x1 Send sputum and blood cultures Pleural fluid studies ordered. Previously was seen by ID Endo: Diabetes mellitus History of gout Sliding scale insulin with NovoLog high regimen to maintain euglycemia Currently on insulin detemir 5 units subcu twice daily. May need to increase Levemir with addition of Solu-Medrol Holding home medications of allopurinol 300 mg daily and colchicine 0.6 mg as needed Holding home medications of metformin 500 mg twice daily Heme: Leukocytosis Normocytic anemia Monitor CBC daily. Follow trends Coags within normal limits Access Peripheral IV. Place central line if needed Prophylaxis -GI -lansoprazole. DVT -SCD/start Lovenox 40 mg daily Overall impression: Chronically ill Spanish gentleman now acutely ill with severe hypoxemic and hypercarbic respiratory failure severe sepsis. Now required mechanical ventilatory support and broad-spectrum antibiotic drainage and further studies of the pleural fluid. Requiring levophed vasopressor support for hypotension. Prognosis very critical with guarded at this time. He remains critically ill and hemodynamically unstable. Critical care time 38 minutes aside from procedures.
[2017-11-09] MEDS: Oral Hygiene Kit OROPHARYNG SCH ×4 (00:12→16:00)
[2017-11-09] MEDS: MethylPREDNISolone Sod Succinate Inj 125 MG/2 ML Vial IV.PUSH SCH ×2 (00:12→06:13)
[2017-11-09] MEDS: Insulin NovoLOG Aspart Correctional Sugar Inj SQ SCH ×4 (00:12→18:49)
[2017-11-09] MEDS: Senna/Docusate Sodium 8.6/50 MG Tablet PO PRN (00:13)
[2017-11-09] MEDS: Piperacil/Tazo 4.5 GM Premix 4.5 GM/100 ML BAG IV.SIG SCH ×4 (00:13→18:49)
[2017-11-09 04:39] LABS: Baso % (Auto) 0.1 % (0.0-2.0); Hematocrit 26.4 % (39.0-51.0); Hemoglobin 8.7 gm/dL (13.0-17.0); Lymph # (Auto) 0.6 th/mm3 (1.0-4.8); Lymph % (Auto) 4.5 % (9.0-44.0); Mean Corpuscular HGB Conc 32.9 % (32.0-36.0); Mean Corpuscular Hemoglobin 30.1 pg (27.0-34.0); Mean Corpuscular Volume 91.5 fL (80.0-100.0); Mean Platelet Volume 7.6 fL (7.0-11.0); Mono # (Auto) 0.3 th/mm3 (0.0-0.9); Mono % (Auto) 2.4 % (0.0-8.0); Neut # (Auto) 11.7 th/mm3 (1.8-7.7); Platelet Count 268 th/mm3 (150-450); Red Blood Count 2.88 mil/mm3 (4.50-5.90); Red Cell Distribution Width 17.2 % (11.6-17.2); White Blood Count 12.6 th/mm3 (4.0-11.0)
[2017-11-09] MEDS: Enoxaparin Inj 40 MG/0.4 ML Syringe SQ SCH (08:22)
[2017-11-09] MEDS: Metoprolol Tartrate 50 MG Tablet NG/OG SCH ×2 (08:22→20:16)
[2017-11-09] MEDS: Insulin Detemir Inj 1,000 UNIT/10 ML Vial SQ SCH ×2 (08:22→20:16)
[2017-11-09] MEDS: Chlorhexidine 0.12% Oral Kit 15 ML UDC OROPHARYNG SCH ×2 (08:22→20:16)
[2017-11-09] MEDS: QUEtiapine 25 MG Tablet NG/OG SCH ×2 (08:28→20:16)
--- NOTE | 2017-11-09 08:50 | P.PNCC ---
Subjective Subjective Remarks/Hospital Course: This is a 77-year-old Montenegrin male/Mandarin speaking only. Date of admission 08/21/2017. Date of consultation 08/23/2017. Past medical history is documented as hypertension, gout and diabetes mellitus. He is on no home medications. He does have remote history of tuberculosis 10 years ago. He quit tobacco use 20 years ago. He presented to [facility] on 08/21/2017 with a 3-4 days of intermittent pain in this region that acutely acutely worsened on 08/20 . They state the pain is in the right upper quadrant and radiates to the upper thorax and around his back. Hospital workup included a CT pulmonary angiogram which revealed bilateral emphysema. Multiple bilateral pulmonary nodules present with the largest in the right lung measuring 2.8 cm and the largest in the left lung measuring 2.6 cm. Severe compressive atelectasis in the right lower lobe. Moderate-sized pulmonary effusion. Pleural thickening in the anterior inferior hemothorax. Right paratracheal lymph node 15 mm. 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 No lytic bone lesions. Also noted significant coronary artery and aortic atherosclerotic calcifications. Patient was evaluated by hematology. Recommended lung biopsy when stable. She has become increasingly short of breath and was transferred from a formerly named [facility] to [facility] at 70%. Patient became less responsive and we were consulted. Patient required intubation/central line placement is currently having a right pigtail catheter placed to remove fluid from right lung. 08/24: hypotensive this AM requiring levophed at 8 mcg/min. drained 600cc of serosanguinous fluid out of chest tube. responded successfully to straight-leg challenge. intubated, sedated. remains very critically ill. 08/25: Afebrile. Off all antihypertensives and vasopressin. Currently normal saline at 100 cc an hour. On propofol and fentanyl drips. 08/26: Afebrile. No tonsillar creatinine currently at 20 cc an hour. Remains on increased propofol drip at 40 mcg/kg/min secondary to severe agitation overnight and on attempted spontaneous breathing trials. Will try dexmedetomidine attempt to wean today. 08/27: Worsening lung infiltrates associated with hydration. Afebrile. Known diastolic dysfunction. He appears to be exquisitely sensitive to fluid balance. Presently converting to Precedex and will try spontaneous breathing trials. 08/28: Continued worsening bilateral lung infiltrates. IV fluid has been stopped yesterday, will add additional diuretics. Diffusion gradient worsened, unable to wean from ventilator. 08/29: Mild improvement in lung infiltrates after diuresis without harming renal function. Remains ventilator dependent. Biopsy yesterday, results pending. 08/30: Worsening gas exchange with deteriorating diffusion capacity and requirements for increased inspired oxygen concentration. This all despite 2 L diuresis. Await pathology results. 08/31: Lung infiltrates resolving with diuresis. Continues to behave like diastolic heart failure. Contraction alkalosis is developing will add a carbonic anhydrase inhibitor for a couple of days. T-max 100.8 but for the most part he has been afebrile. Lung mass does appear to be a malignancy. Agree with attempt to rebiopsy at some point. We will continue to diuresis until his kidneys squeak. At 7-10 days of antibiotics it may be best to stop treatment and reculture for fevers. I will defer to the pulmonary service. 09/01: remains intubated and sedated. continues to fail any weaning attempts. consulted palliative to assist in goals of care: may need tracheostomy for further aggressive care. 09/02: palliative meeting with family again today. no improvements. it has been greater than 10 days of full empiric antibiotics: will discontinue and re- culture for fever. 09/03: chest tube on water seal with minimal output. cxr unchanged. CT removed today on my eval. no other changes or improvements. unlikely to have favorable outcome. quite hypercarbic despite full vent support: will make changes to ventilation to assist with hypercarbic. 09/04: Remains sedated, orally intubated on mechanical ventilation. 09/05: Remains sedated, orally intubated on mechanical ventilation. Failed CPAP trials yesterday. 09/06: Sedated, arousable, orally intubated on mechanical ventilation. Failed CPAP trials yesterday. Family wishes to continue aggressive care and desire trach and PEG. 09/07: T-max 100.3. One bowel movement yesterday. Failed CPAP trials yesterday. OG tube plugged overnight and able to place new feeding tube at the present time. We will switch all medications to IV at the present time including amiodarone drip at 0.5 mg/min. Check digoxin level prior to resuming IV. 09/08: T-max 99.2. Currently afebrile. One bowel movement overnight. Plan for percutaneous tracheostomy today. GI consult for PEG placement. CT chest revealed small bilateral pleural effusions. Persistent right middle lobe mass which we will consult IR again for rebiopsy. Will ask pulmonary to see again 09/09: Remains on full vent support more critical today increasing oxygen requirement FiO2 at 65 of have increase PEEP to 10 to attempt wean oxygen. Air entry markedly diminished bilaterally. Chest x-ray shows bilateral prominent interstitial infiltrates. Fluid up by approximately 10 kg. I will discontinue half-normal saline. Lasix 40 mg IV 1 09/10: Patient remains critical showing agonal breathing on the ventilator. Bilateral coarse breath sounds. Chest x-ray shows bilateral patchy infiltrates improved left effusion after thoracentesis and removal of 1 L of fluid. However FiO2 requirement remains high at 65%. UO 1.5L in 24 hours. Lab work pending. IV steroids started for probable COPD exacerbation given history of smoking 09/11: Remains critical but slightly more stable. Breathing pattern has improved and oxygenation has improved after starting IV steroids for COPD exacerbation and thoracentesis on 09/09/2017. Currently FiO2 down to 50%, PEEP at 10. We will further wean. Sodium increased to 151 start quarter normal saline, increase Lasix. Family wished to proceed with full code. PEG today 09/12: Remains intubated sedated with propofol. Urine output 1.8 L. BUN/ creatinine slightly increased today 72/1.34. Will reduce Lasix dose also reduce Solu-Medrol. Vent dyssynchrony has improved but FiO2 remains high at 55% 09/13: Off all sedation for 24 hours. Apparently patient notes has had one family is at bedside asking questions. BUN/creatinine slightly improved 71/ 1.14 from 72/1.34. WBC count slightly improved to 20.7. FiO2 at 45% chest x- ray shows some interval improvement. Also Na improved to 147 09/14: Remains intubated off sedation. Slightly tachypneic on pressure support . Urine output approximately 1500 mL in 24 hours 09/15: Patient clearly more awake today seems to understand some of the commands. Concern about quadriparesis patient is not able to withdrawal to pain 4, even though it appears he does feel the pain. MRI of the C-spine ordered. Neurology consulted. Otherwise BUN/creatinine slightly improved 09/16: Patient remains quadriparetic, slight movement of the left upper extremity. MRI of the C-spine shows focal severe spinal canal stenosis at C4-5 , with increased signal within the body of the spinal cord at this level most likely representing some myelomalacia. Moderate diffuse broad-based bulging at C3-4 with some mild increased signal in the spinal cord at this level. Moderate spinal canal stenosis at C6-C7. Also there is evidence of tracheostomy site infection. Explained MRI findings to son and patient's using electronic information assurance officer. Discussed with Dr. Carvalho. Increase Solu-Medrol to 250 mg IV every 6 hours. Consult neurosurgery 09/17: Remains septic, remains quadriplegic. Slight movements of the left upper extremity noted. C. difficile positive p.o. vancomycin added by ID yesterday. Appreciate input from Dr. Victor. Patient hs severe upper cervical stenosis with myelopathy and resultant SCI/severe quadriplegia of the upper and lower extremities. Prognosis very poor per neurosurgery 09/18: Afebrile. Tube feeds are at goal. No change in neurological status. Left upper extremity movement only. 09/19: Resting comfortably in bed in no acute distress. Noted able to squeeze left hand in slightly squeeze right hand. Will move bilateral lower extremities slightly to command. Positive BM. 09/20: Status post C2 hemilaminectomy, C3 through [address] Victor yesterday. Tolerated procedure well. Restarting tube feeding today. Verbalizing words and does move left upper extremity spontaneously. 09/21: Afebrile. Neurological unchanged overnight. No bowel movement since 09/18. Tolerating tube feeds at goal. Discussed with care plan via ice seller yesterday and she expressed understanding. 09/22: Stable hemodynamics and acceptable gas exchange. Remains weak.Unable to wean from ventilator. 09/23: Remains effectively quadriplegic. Unable to wean from ventilator due to inadequate respiratory stamina. 09/24: Minimal movement nor response to voice or stimulation. No improvement from debilitated state over past several weeks. 09/25: Opens eyes but not to command. Tolerate CPAP trials for several hours now. 09/26: Opens eyes spontaneously. Does not tolerate CPAP and spontaneous breathing trials for long periods. Will need a long-term vent unit. 09/27: Tolerate spontaneous breathing trials for periods of several hours. Fatigues however and requires to be placed back on full ventilator support. Although he opens his eyes and appears to look and track he is severely debilitated and deteriorating. Despite aggressive nutritional support he continues to decline clinically. 09/28: Tolerating T piece trial for the first time today. He remains severely debilitated and there is been no change in the neurologic exam. 09/29: no changes. tolerating t-piece. no changes in neurologic exam. needs placement. acute medical problems have resolved. SUBJECTIVE: 09/30: Remains on T-piece. Breathing comfortably, neuro exam remains unchanged. No acute events reported overnight [facility] RECONSULT NOTE 11/07/17: Patient known to our service, please see detailed history above. In shor Mr. Palmer is a 77-year-old man with a medical history significant for hypertension, gout, diabetes who initially presented with pain in his groin and back. CT angiogram showed bilateral emphysema and pulmonary nodules -he underwent a biopsy which showed chronic inflammation, and reactive fibroblastic tissue. While coming of sedation patient noted to have quadriparesis and MRI showed findings consistent with acute spinal cord injury. He was also found to have significant spinal stenosis and underwent a laminectomy by neurosurgery. The patient's hospital stay was complicated by septic shock secondary to hospital- acquired pneumonia and C. difficile. Eventually weaned off the vent and had been on hospitalist service since 10/01/2017. Had been off the vent approximately >5 weeks. Today developed severe shortness of breath lethargy and hypoxia. A stat ABG showed pH 7.31 PCO2 86 PO2 63 on 40% oxygen with a saturation of 87%. Transferred to ICU and critical care consult was requested. I ordered a stat CT of the chest to evaluate left-sided infiltrate and effusion. Patient went to the CAT scan prior to arrival to the ICU. He had further desaturation into the 70s. In the ICU patient was emergently placed on mechanical ventilation and trach was reinflated. Clinical exam reveals significant bilateral wheezing large amount of secretions. Sputum culture was collected breathing treatments ordered. I will start him on empiric Zosyn and vancomycin awaiting cultures. COPD exacerbation will be treated with scheduled and as needed DuoNeb treatments and IV Solu-Medrol 60 mg every [address] of the chest shows left lower lobe and right upper lobe infiltrates and moderate sized left effusion. Left effusion will be drained with the pigtail catheter to improve oxygenation. 11/08: Chest x-ray clear of effusion following drainage tube placement. Oxygenation on ventilator improved. Patient remains very weak but we will progress with spontaneous breathing trials and attempt to get him back to trach collar. He is acceptably well hydrated at this time and hemodynamically stable. 11/09: Patient breathing more comfortably following removal of approximately 1500 mL's from the left thorax. Tolerating spontaneous breathing trials today with pressure support of 12. We will try to progress to trach collar trials over the next 24 hours. Objective Vital Signs / I&O: Vital Signs 11/08/17 11:00 11/08/17 11:26 11/08/17 12:00 Temperature 97.8 F Pulse Rate 80 84 Respiratory Rate 20 32 H Blood Pressure 108/61 Pulse Oximetry 96 100 11/08/17 14:00 11/08/17 15:00 11/08/17 15:17 Temperature Pulse Rate 72 64 Respiratory Rate 30 H Blood Pressure Pulse Oximetry 100 100 11/08/17 16:00 11/08/17 20:00 11/08/17 20:05 Temperature 97.8 F 97.9 F Pulse Rate 80 88 86 Respiratory Rate 27 H 28 H 28 H Blood Pressure 101/55 L 128/73 Pulse Oximetry 99 100 11/08/17 23:00 11/08/17 23:45 11/09/17 00:00 Temperature Pulse Rate 81 82 95 H Respiratory Rate 28 H Blood Pressure Pulse Oximetry 96 11/09/17 00:43 11/09/17 02:00 11/09/17 03:49 Temperature Pulse Rate 89 82 Respiratory Rate 25 H 17 Blood Pressure Pulse Oximetry 100 11/09/17 04:00 11/09/17 06:00 11/09/17 07:22 Temperature 98.1 F Pulse Rate 92 H 100 H 104 H Respiratory Rate 32 H 32 H Blood Pressure 127/65 Pulse Oximetry 99 Intake & Output 11/08/17 11/09/17 11/09/17 18:59 06:59 18:59 Intake Total 1420 / 1420 1631 / 1631 Output Total 0 / 0 525 / 525 Balance 1420 / 1420 1106 / 1106 Weight 64.1 kg Intake: IV 250 / 250 300 / 300 Versed Inj 50 mg In 50 ml @ 2 50 / 50 MG/HR 2 mls/hr IV.CONT TITRATE PRN Rx#:[id number] Zosyn 4.5 GM Premix 4.5 gm In 200 / 200 300 / 300 100 ml @ 200 mls/hr IV.SIG Q6H MICHELET Rx#:[id number] Oral 0 / 0 Tube Feeding 450 / 450 551 / 551 Tube Irrigant 120 / 120 180 / 180 Water Bolus Amount 600 / 600 600 / 600 Output: Stool 0 / 0 Urine Amount (Catheter) 425 / 425 Indwelling Urethral Catheter 425 / 425 Chest Tube Drainage 100 / 100 Left 100 / 100 Other: Date of Last Bowel Movement 11/07/17 11/07/17 Result Diagrams: 11/09/17 04:20 11/08/17 05:55 Objective Remarks: GENERAL: 77-year-old male currently on t-piece via trach. Comfortable on ventilator. SKIN: Warm and dry. No rash HEAD: Atraumatic. Normocephalic. Eyes sunken. EYES: Pupils equal and round . No conjunctival icterus. No injection or drainage. ENT: No nasal bleeding or discharge. Mucous membranes dry. Dry white secretions on the tongue NECK: Trachea midline. Trach site with minimal drainage. On mechanical ventilation via tracheostomy. CARDIOVASCULAR: Tachycardic rate, regular rhythm. No JVD LUNGS: Coarse rhonchi and wheezes appreciated bilaterally. Air entry improved left side today. GASTROINTESTINAL: Abdomen soft, non-tender, nondistended. PEG in place. No guarding. MUSCULOSKELETAL: Extremities without significant peripheral edema. Well- perfused. NEUROLOGICAL: Opens eyes to loud voice. He moves upper extremities spontaneously, withdraws lower extremities. He is Montenegrin speaking and cannot understand Occitan so do not follow commands to me Assessment and Plan - Assessment and Plan Plan: Assessment and Plan Neuro/Psych: Toxic metabolic encephalopathy/CO2 narcosis Quadriparesis Severe cervical spinal cord stenosis, with acute spinal cord injury s/p C2 hemilaminectomy, C3 through 5 lamina plasty secondary to cervical stenosis, spinal stenosis by Dr. Victor Current somnolence secondary to metabolic encephalopathy and CO2 narcosis After being on mechanical ventilation mentation improved, however remained in respiratory distress and sedated with propofol now MRI C-spine 09/15: Focal severe spinal canal stenosis at C4-5. There is increased signal within the body of the spinal cord at this level most likely representing some myelomalacia. s/p C2 hemilaminectomy, C3 through 5 lamina plasty secondary to cervical stenosis, spinal stenosis by Dr. Victor Neurology Dr. Carvalho. Status post high-dose steroid which was eventually tapered off Head CT 08/23: 2 questionable tiny focal hemorrhages. MRI of brain 08/26 chronic small vessel ischemic and atrophic changes CT brain 09/05 revealed bilateral maxillary sinusitis. No other acute finding Acetaminophen 650 mg by tube every 6 hours as needed fever Oxycodone 5 mg every 4 hours, prn. Continue scheduled quetiapine CV: Hypotension may be medication induced Atrial fibrillation, now NSR Previously elevated troponin downward trend uncontrolled hypertension -resolved Atherosclerotic coronary artery disease Fluid resuscitation with 2 L normal saline bolus and 50 mL/h infusion Levophed to keep MAP> 65 if needed Check lactic acid stat, trend if high Currently in sinus rhythm tachycardia is secondary to SIRS/sepsis Resp: Acute, hypoxic hypercapnic respiratory failure COPD with exacerbation/Emphysema Healthcare associated pneumonia Large left-sided pleural effusion Multiple bilateral pulmonary masses vs infiltrate, biopsy shows inflammatory changes Placed emergently on mechanical ventilation PRVC mode 100% FiO2 IV Solu-Medrol 60 mg stat and every 6 hours DuoNeb every 4 hours scheduled and as needed, Ventilator bundle Plan for left pigtail chest tube placement continue inhaled budesonide 0.5/2 1 inhalation twice daily Previous Bilateral pleural effusion/status post chest tube right-sided transudative in nature. Chest tube removed 09/[address] pulmonary angiogram revealed 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 Right middle lobe 2.7 x 2.2 x 7's. Spiculated. Left lingula is 3.4 x 3.20 cm. Underlying pronounced emphysematous CT thorax 09/08 revealed multiple areas of consolidation bilaterally. Prior granulomatous disease. Focal consolidation or mass in the right middle lobe that appears unchanged. Lung mass biopsied on August 28 -results - CHRONIC INFLAMMATORY AND REACTIVE FIBROBLASTIC TISSUE CONTAINING ENTRAPPED BENIGN EPITHELIUM reconsult IR 09/08 for repeat biopsy Followed by Dr. Hardy/Dr. Sanchez pulmonology. s/p percutaneous tracheostomy 09/08 (Bryant/Michael). Status post thoracentesis left side 09/09 with 1 L fluid removed. No evidence of infection. GI: Hypoalbuminemia C. difficile colitis Acute protein calorie malnutrition -severe s/p PEG 09/11. Keep n.p.o. until clinically stable Lansoprazole for GI prophylaxis Lactulose 30 cc twice daily for bowel regimen/hyperammonemia P.o. vancomycin 250 for C. difficile completed Laxative 1 today. : Urinary retention, possible urinary stricture Acute kidney injury-resolved Maintain Larson catheter. Monitor urine output, Accurate I's and O's significant difficulty due to obstruction which may be urethral stricture which prevented serial i/o. Avoid nephrotoxic drugs. ID: Severe sepsis HCAP Trach site infection - resolved C. difficile colitis-resolved Start Zosyn 4.5 g IV every 6 hours, vancomycin 1 g x1 Send sputum and blood cultures Pleural fluid studies ordered. Previously was seen by ID Endo: Diabetes mellitus History of gout Sliding scale insulin with NovoLog high regimen to maintain euglycemia Currently on insulin detemir 5 units subcu twice daily. May need to increase Levemir with addition of Solu-Medrol Holding home medications of allopurinol 300 mg daily and colchicine 0.6 mg as needed Holding home medications of metformin 500 mg twice daily Heme: Leukocytosis Normocytic anemia Monitor CBC daily. Follow trends Coags within normal limits Access Peripheral IV. Place central line if needed Prophylaxis -GI -lansoprazole. DVT -SCD/start Lovenox 40 mg daily Overall impression: Chronically ill Montenegrin gentleman now acutely ill with severe hypoxemic and hypercarbic respiratory failure severe sepsis. Now required mechanical ventilatory support and broad-spectrum antibiotic drainage and further studies of the pleural fluid. Progressed to T piece trials.
[2017-11-09] MEDS: MethylPREDNISolone Sod Succinate Inj 40 MG/ML Vial IV.PUSH SCH ×2 (13:54→22:35)
[2017-11-09] MEDS: LORazepam 1 MG Tablet G-TUBE PRN (21:10)
[2017-11-10] MEDS: Piperacil/Tazo 4.5 GM Premix 4.5 GM/100 ML BAG IV.SIG SCH ×5 (00:37→23:40)
[2017-11-10] MEDS: Oral Hygiene Kit OROPHARYNG SCH ×5 (00:37→23:40)
[2017-11-10] MEDS: Insulin NovoLOG Aspart Correctional Sugar Inj SQ SCH ×5 (00:39→23:39)
[2017-11-10] MEDS: Temazepam 15 MG Capsule PO PRN ×2 (02:09→23:40)
[2017-11-10] MEDS: MethylPREDNISolone Sod Succinate Inj 40 MG/ML Vial IV.PUSH SCH ×3 (06:09→20:22)
[2017-11-10] MEDS: Chlorhexidine 0.12% Oral Kit 15 ML UDC OROPHARYNG SCH ×2 (07:51→20:23)
[2017-11-10] MEDS: LORazepam 1 MG Tablet G-TUBE PRN (08:40)
--- NOTE | 2017-11-10 09:13 | P.PNIM ---
Subjective Interval history: The pt appeared comfortable. Nursing reports that the patient is pulling his T piece out and taking off his sheets constantly. No other concerns reported. Physical Exam Vital signs: Vital Signs 11/09/17 09:10 11/09/17 10:00 11/09/17 11:24 Temperature Pulse Rate 106 H 98 H Respiratory Rate 26 H Blood Pressure Pulse Oximetry 95 11/09/17 12:00 11/09/17 15:11 11/09/17 16:00 Temperature 97.5 F L 98.1 F Pulse Rate 100 H 108 H 112 H Respiratory Rate 29 H 28 H 28 H Blood Pressure 119/71 140/69 Pulse Oximetry 96 99 11/09/17 20:00 11/09/17 20:24 11/09/17 23:15 Temperature 98.8 F 98.1 F Pulse Rate 113 H 120 H 107 H Respiratory Rate 25 H 20 Blood Pressure 139/80 165/89 H Pulse Oximetry 99 93 L 95 11/10/17 00:49 11/10/17 04:00 11/10/17 04:03 Temperature 97.8 F Pulse Rate 92 H 103 H 98 H Respiratory Rate 22 20 18 Blood Pressure 124/68 Pulse Oximetry 95 99 11/10/17 04:13 11/10/17 07:52 11/10/17 08:00 Temperature 98 F Pulse Rate 98 H 100 H Respiratory Rate Blood Pressure 146/90 H Pulse Oximetry 95 11/10/17 08:25 11/10/17 08:37 Temperature Pulse Rate 80 Respiratory Rate 20 Blood Pressure Pulse Oximetry 97 100 Intake & Output 11/09/17 11/10/17 11/10/17 18:59 06:59 18:59 Intake Total 1240 / 1240 740 / 740 Output Total 1700 / 1700 1000 / 1000 Balance -460 / -460 -260 / -260 Intake: IV 100 / 100 300 / 300 Zosyn 4.5 GM Premix 4.5 gm In 100 / 100 300 / 300 100 ml @ 200 mls/hr IV.SIG Q6H [facility] Rx#:[id number] Tube Feeding 480 / 480 440 / 440 Water Bolus Amount 600 / 600 Other 60 / 60 Output: Urine Amount (Catheter) 1700 / 1700 1000 / 1000 Indwelling Urethral Catheter 1700 / 1700 1000 / 1000 Other: Date of Last Bowel Movement 11/09/17 11/10/17 11/10/17 # Bowel Movements 5 1 Narrative: GENERAL: No distress. SKIN: Warm and dry. No rash HEAD: Atraumatic. Normocephalic. Eyes sunken. EYES: Pupils equal and round . No conjunctival icterus. No injection or drainage. ENT: No nasal bleeding or discharge. Mucous membranes dry. Dry white secretions on the tongue NECK: Trachea midline. Trach site with minimal drainage. CARDIOVASCULAR: Regular rate and rhythm. No JVD LUNGS: Coarse rhonchi and wheezes appreciated bilaterally. GASTROINTESTINAL: Abdomen soft, non-tender, nondistended. PEG in place. No guarding. MUSCULOSKELETAL: Extremities without significant peripheral edema. Well- perfused. NEUROLOGICAL: Opens eyes to voice. He moves upper extremities spontaneously, withdraws lower extremities. - Urinary Catheter Management Indwelling Urethral Catheter Cath placed during this visit: yes Urethral indwelling: Yes Reason for continuing: Chronic Urinary Retention Insertion date: 08/20/17 Insertion time: 17:00 Results - Labs CBC & Chem 7: 11/09/17 04:20 11/08/17 05:55 Laboratory Results - last 24 hr 11/09/17 11/09/17 11/09/17 13:58 17:43 23:25 POC Glucose 231 H 179 H 94 11/10/17 07:01 POC Glucose 234 H Microbiology 11/07/17 13:05 Fluid - Pleural fluid Gram Stain - Final 11/07/17 13:05 Fluid - Pleural fluid Body Fluid Culture - Final No growth in 72 hours (aerobically and anaerobically ) 11/07/17 13:05 Fluid - Pleural fluid Acid Fast Bacilli Smear - Final No acid fast bacilli seen 11/07/17 13:05 Sputum - Endotracheal Gram Stain - Final 11/07/17 13:05 Sputum - Endotracheal Sputum Culture - Final Pseudomonas aeruginosa Citrobacter koseri - Procedures 08/23- intubation 09/03- bronchoscopy, lung biopsy, thoracentesis 09/08- tracheostomy 09/11- PEG placement Assessment and Plan - Plan Toxic metabolic encephalopathy/CO2 narcosis Quadriparesis Severe cervical spinal cord stenosis, with acute spinal cord injury s/p C2 hemilaminectomy, C3 through 5 lamina plasty secondary to cervical stenosis, spinal stenosis by Dr. Victor MRI C-spine 09/15: Focal severe spinal canal stenosis at C4-5. There is increased signal within the body of the spinal cord at this level most likely representing some myelomalacia. s/p C2 hemilaminectomy, C3 through 5 lamina plasty secondary to cervical stenosis, spinal stenosis by Dr. Victor Neurology Dr. Carvalho. Status post high-dose steroids Head CT 08/23: 2 questionable tiny focal hemorrhages. MRI of brain 08/26 chronic small vessel ischemic and atrophic changes CT brain 09/05 revealed bilateral maxillary sinusitis. No other acute finding -Acetaminophen 650 mg by tube every 6 hours as needed fever -Oxycodone 5 mg every 4 hours, prn. Continue scheduled quetiapine -increase Seroquel to 75 mg BID as continues to pull at t piece. Hypotension- may have been medication induced Atrial fibrillation, now NSR Previously elevated troponin downward trend uncontrolled hypertension -resolved Atherosclerotic coronary artery disease -S/p fluid resuscitation and Levophed Acute, hypoxic hypercapnic respiratory failure COPD with exacerbation/Emphysema Healthcare associated pneumonia Large left-sided pleural effusion Multiple bilateral pulmonary masses vs infiltrate, biopsy shows inflammatory changes -IV Solu-Medrol 40 mg every 6 hours -DuoNeb every 4 hours scheduled and as needed, Ventilator bundle -s/p left pigtail chest tube placement -continue inhaled budesonide 0.5/2 1 inhalation twice daily -Previous Bilateral pleural effusion/status post chest tube right-sided transudative in nature. Chest tube removed 09/[address] pulmonary angiogram revealed 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 Right middle lobe 2.7 x 2.2 x 7's. Spiculated. Left lingula is 3.4 x 3.20 cm. Underlying pronounced emphysematous CT thorax 09/08 revealed multiple areas of consolidation bilaterally. Prior granulomatous disease. Focal consolidation or mass in the right middle lobe that appears unchanged. Lung mass biopsied on August 28 -results - CHRONIC INFLAMMATORY AND REACTIVE FIBROBLASTIC TISSUE CONTAINING ENTRAPPED BENIGN EPITHELIUM -Followed by pulmonology. -s/p percutaneous tracheostomy 09/08. -Status post thoracentesis left side 09/09 with 1 L fluid removed. No evidence of infection. Hypoalbuminemia C. difficile colitis Acute protein calorie malnutrition -severe -s/p PEG 09/11. Keep n.p.o. until clinically stable -Lansoprazole for GI prophylaxis -Lactulose 30 cc twice daily for bowel regimen/hyperammonemia -P.o. vancomycin 250 for C. difficile completed Urinary retention, possible urinary stricture Acute kidney injury-resolved -Maintain Larson catheter. Monitor urine output, Accurate I's and O's Severe sepsis HCAP Trach site infection - resolved C. difficile colitis-resolved -Zosyn 4.5 g IV every 6 hours resumed 11/07. Send sputum and blood cultures Pleural fluid studies ordered. Previously was seen by ID Diabetes mellitus History of gout -Sliding scale insulin with NovoLog high regimen to maintain euglycemia -Currently on insulin detemir 5 units subcu twice daily. May need to increase Levemir with addition of Solu-Medrol -Holding home medications of allopurinol 300 mg daily and colchicine 0.6 mg as needed -Holding home medications of metformin 500 mg twice daily. PPx: Lovenox 40 mg daily
[2017-11-10] MEDS ORDERED: QUEtiapine 25 MG Tablet PO ONE (09:20)
[2017-11-10] MEDS: Insulin Detemir Inj 1,000 UNIT/10 ML Vial SQ SCH ×2 (12:00→20:23)
[2017-11-10 13:06] LABS: Anion Gap 10 meq/L (5-15); Blood Urea Nitrogen 39 mg/dL (7-18); Calcium 8.9 mg/dL (8.5-10.1); Carbon Dioxide 34.2 meq/L (21.0-32.0); Chloride 102 meq/L (98-107); Glomerular Filtration Rate Greater Than 89 mL/min (>89); Glucose,Random 158 mg/dL (74-106); Potassium 3.4 meq/L (3.5-5.1); Sodium 146 meq/L (136-145)
[2017-11-10] MEDS: Metoprolol Tartrate 50 MG Tablet NG/OG SCH ×2 (13:28→20:22)
[2017-11-10] MEDS: Enoxaparin Inj 40 MG/0.4 ML Syringe SQ SCH (13:28)
[2017-11-10] MEDS ORDERED: Potassium Chloride 20 MEQ Pwd Pkt NG/OG ONE (15:39)
[2017-11-10] MEDS ORDERED: Potassium Chloride 25 MEQ Effervescent Tablet NG/OG ONE (17:00)
--- NOTE | 2017-11-10 17:40 | P.PN ---
Subjective Interval history: Has been off the vent since last Friday. Now on a Trach collar at 40 % FIO2 . CXR showed patchy Bilateral infiltrates. Overall better. Physical Exam Vital signs: Vital Signs 11/09/17 20:00 11/09/17 20:24 11/09/17 23:15 Temperature 98.8 F 98.1 F Pulse Rate 113 H 120 H 107 H Respiratory Rate 25 H 20 Blood Pressure 139/80 165/89 H Pulse Oximetry 99 93 L 95 11/10/17 00:49 11/10/17 04:00 11/10/17 04:03 Temperature 97.8 F Pulse Rate 92 H 103 H 98 H Respiratory Rate 22 20 18 Blood Pressure 124/68 Pulse Oximetry 95 99 11/10/17 04:13 11/10/17 07:52 11/10/17 08:00 Temperature 98 F Pulse Rate 98 H 100 H Respiratory Rate Blood Pressure 146/90 H Pulse Oximetry 95 11/10/17 08:25 11/10/17 08:37 11/10/17 11:43 Temperature Pulse Rate 80 120 H Respiratory Rate 20 25 H Blood Pressure Pulse Oximetry 97 100 11/10/17 12:00 11/10/17 15:58 11/10/17 16:00 Temperature 98 F 98.2 F Pulse Rate 98 H 98 H 99 H Respiratory Rate 20 18 20 Blood Pressure 122/79 128/79 Pulse Oximetry 95 Intake & Output 11/09/17 11/10/17 11/10/17 18:59 06:59 18:59 Intake Total 1240 / 1240 740 / 740 Output Total 1700 / 1700 1000 / 1000 Balance -460 / -460 -260 / -260 Intake: IV 100 / 100 300 / 300 Zosyn 4.5 GM Premix 4.5 gm In 100 / 100 300 / 300 100 ml @ 200 mls/hr IV.SIG Q6H [facility] Rx#:[id number] Tube Feeding 480 / 480 440 / 440 Water Bolus Amount 600 / 600 Other 60 / 60 Output: Urine Amount (Catheter) 1700 / 1700 1000 / 1000 Indwelling Urethral Catheter 1700 / 1700 1000 / 1000 Other: Date of Last Bowel Movement 11/09/17 11/10/17 11/10/17 # Bowel Movements 5 1 Narrative: GENERAL:Elderly male in No distress. SKIN: Warm and dry. No rash HEAD: Atraumatic. Normocephalic. Eyes sunken. EYES: Pupils equal and round . No conjunctival icterus. No injection or drainage. ENT: No nasal bleeding or discharge. Mucous membranes dry. NECK: Trachea midline. Trach site with minimal drainage. CARDIOVASCULAR: Regular rate and rhythm. No JVD LUNGS: Occ wheezes appreciated bilaterally. Few basal crackles. GASTROINTESTINAL: Abdomen soft, non-tender, nondistended. PEG in place. No guarding. MUSCULOSKELETAL: Extremities without significant peripheral edema. Well- perfused. NEUROLOGICAL: Opens eyes to voice. He moves upper extremities spontaneously, withdraws lower extremities. - Urinary Catheter Management Indwelling Urethral Catheter Cath placed during this visit: yes Urethral indwelling: Yes Reason for continuing: Chronic Urinary Retention Insertion date: 08/20/17 Insertion time: 17:00 Results - Labs CBC & Chem 7: 11/09/17 04:20 11/10/17 12:30 Laboratory Results - last 24 hr 11/09/17 11/09/17 11/10/17 17:43 23:25 07:01 Sodium Potassium Chloride Carbon Dioxide Anion Gap BUN Creatinine Estimated GFR POC Glucose 179 H 94 234 H Random Glucose Calcium 11/10/17 11/10/17 11/10/17 12:28 12:30 17:28 Sodium 146 H Potassium 3.4 L Chloride 102 Carbon Dioxide 34.2 H Anion Gap 10 BUN 39 H Creatinine 0.66 Estimated GFR Greater than 89 POC Glucose 200 H 154 H Random Glucose 158 H Calcium 8.9 Microbiology 11/07/17 13:05 Fluid - Pleural fluid Gram Stain - Final 11/07/17 13:05 Fluid - Pleural fluid Body Fluid Culture - Final No growth in 72 hours (aerobically and anaerobically ) - Procedures 08/23- intubation 09/03- bronchoscopy, lung biopsy, thoracentesis 09/08- tracheostomy 09/11- PEG placement Assessment and Plan - Assessment (1) Cervical myelopathy Code(s): G95.9 - Disease of spinal cord, unspecified Status: Acute (2) Respiratory failure Code(s): J96.90 - Respiratory failure, unspecified, unspecified whether with hypoxia or hypercapnia Status: Acute (3) SVT (supraventricular tachycardia) Code(s): I47.1 - Supraventricular tachycardia Status: Acute (4) Lung mass Code(s): R91.8 - Other nonspecific abnormal finding of lung field Status: Acute (5) Diabetes Code(s): E11.9 - Type 2 diabetes mellitus without complications Status: Acute (6) Gout Code(s): M10.9 - Gout, unspecified Status: Acute (7) Spinal stenosis Code(s): M48.00 - Spinal stenosis, site unspecified Status: Acute (8) Dyspnea Code(s): R06.00 - Dyspnea, unspecified Status: Acute - Plan 1. Cont T Bar at 35 % FIO2 . 2. Trach lavage and suction PRN 3. Cont Duoneb nebs qid. 4. Chest Xray BMP ,CBC in am 5. Tube feeds at 60CC 6. PT evaluation. 7. Up in chair as tolerated 8. Continue antibiotics for 5 days 9. Taper solumedrol to 40 mg BID and stop in 3 days
[2017-11-10] MEDS: QUEtiapine 25 MG Tablet NG/OG SCH (20:22)
[2017-11-11] MEDS: Oral Hygiene Kit OROPHARYNG SCH ×3 (04:31→18:08)
[2017-11-11] MEDS: Insulin NovoLOG Aspart Correctional Sugar Inj SQ SCH ×2 (06:20→15:42)
[2017-11-11] MEDS: Piperacil/Tazo 4.5 GM Premix 4.5 GM/100 ML BAG IV.SIG SCH ×3 (06:20→18:08)
[2017-11-11 07:23] LABS: Baso % (Auto) 0.1 % (0.0-2.0); Hematocrit 30.3 % (39.0-51.0); Hemoglobin 9.5 gm/dL (13.0-17.0); Lymph # (Auto) 0.6 th/mm3 (1.0-4.8); Lymph % (Auto) 4.3 % (9.0-44.0); Mean Corpuscular HGB Conc 31.4 % (32.0-36.0); Mean Corpuscular Volume 95.6 fL (80.0-100.0); Mean Platelet Volume 7.4 fL (7.0-11.0); Mono # (Auto) 0.7 th/mm3 (0.0-0.9); Mono % (Auto) 4.9 % (0.0-8.0); Neut # (Auto) 13.4 th/mm3 (1.8-7.7); Neut % (Auto) 90.7 % (16.0-70.0); Platelet Count 277 th/mm3 (150-450); Red Blood Count 3.17 mil/mm3 (4.50-5.90); Red Cell Distribution Width 17.7 % (11.6-17.2); White Blood Count 14.8 th/mm3 (4.0-11.0)
[2017-11-11 07:50] LABS: Anion Gap 7 meq/L (5-15); Blood Urea Nitrogen 32 mg/dL (7-18); Calcium 8.5 mg/dL (8.5-10.1); Carbon Dioxide 37.3 meq/L (21.0-32.0); Chloride 102 meq/L (98-107); Glomerular Filtration Rate Greater Than 89 mL/min (>89); Glucose,Random 173 mg/dL (74-106); Magnesium 2.5 mg/dL (1.5-2.5); Potassium 3.9 meq/L (3.5-5.1); Sodium 146 meq/L (136-145)
[2017-11-11 08:35] LABS: Lymphocytes 5 % (9-44); Monocytes 3 % (0-8); Myelocytes 2 % (0-0)
[2017-11-11 08:36] LABS: Platelet Estimate Normal (Normal); Platelet Morphology Normal (Normal)
[2017-11-11 08:37] LABS: Stomatocytes 1+
--- NOTE | 2017-11-11 08:48 | P.PNIM ---
Subjective Interval history: in no distress. no fever. looks fairly comfortable. d/w the RN. Physical Exam Vital signs: Vital Signs 11/10/17 11:43 11/10/17 12:00 11/10/17 15:58 Temperature 98 F Pulse Rate 120 H 98 H 98 H Respiratory Rate 25 H 20 18 Blood Pressure 122/79 Pulse Oximetry 95 11/10/17 16:00 11/10/17 18:23 11/10/17 20:00 Temperature 98.2 F 98.3 F Pulse Rate 99 H 111 H Respiratory Rate 20 22 Blood Pressure 128/79 149/83 H Pulse Oximetry 95 97 11/10/17 20:07 11/10/17 23:49 11/11/17 00:00 Temperature 99 F Pulse Rate 112 H 111 H 103 H Respiratory Rate 22 28 H 18 Blood Pressure 119/79 Pulse Oximetry 96 99 11/11/17 04:00 11/11/17 04:11 11/11/17 08:00 Temperature 97.8 F 98 F Pulse Rate 84 83 82 Respiratory Rate 18 18 18 Blood Pressure 113/69 131/84 Pulse Oximetry 99 99 Intake & Output 11/10/17 11/11/17 11/11/17 18:59 06:59 18:59 Intake Total 1000 / 1000 1445 / 1445 Output Total 850 / 850 600 / 600 Balance 150 / 150 845 / 845 Weight 69.8 kg Intake: IV 100 / 100 200 / 200 Zosyn 4.5 GM Premix 4.5 gm In 100 / 100 200 / 200 100 ml @ 200 mls/hr IV.SIG Q6H [facility] Rx#:[id number] Tube Feeding 450 / 450 495 / 495 Tube Irrigant 150 / 150 Water Bolus Amount 450 / 450 600 / 600 Output: Stool 0 / 0 Urine/Stool Mix 0 / 0 Urine Amount (Catheter) 850 / 850 600 / 600 Indwelling Urethral Catheter 850 / 850 600 / 600 Other: Date of Last Bowel Movement 11/10/17 11/10/17 11/10/17 # Bowel Movements 1 # Incontinent Bowel Movements 1 - Constitutional no acute distress - Routine Respiratory Exam Present: CTA bilaterally - Routine Cardiovascular Exam Present: RRR - Routine Abdominal Exam Present: soft - Routine Extremities Exam Comments: no pedal edema. - Urinary Catheter Management Indwelling Urethral Catheter Cath placed during this visit: yes Urethral indwelling: Yes Reason for continuing: Chronic Urinary Retention Insertion date: 08/20/17 Insertion time: 17:00 Results - Labs CBC & Chem 7: 11/11/17 06:15 11/11/17 06:15 Laboratory Results - last 24 hr 11/10/17 11/10/17 11/10/17 12:28 12:30 17:28 WBC RBC Hgb Hct MCV MCH MCHC RDW Plt Count MPV Prelim Diff (Auto) Neut % (Auto) Lymph % (Auto) [place] % (Auto) Eos % (Auto) Baso % (Auto) Neut # (Auto) Lymph # (Auto) [place] # (Auto) Eos # (Auto) Baso # (Auto) WBC Differential Seg Neuts % (Manual) Band Neuts % (Manual) Lymphocytes % (Manual) Monocytes % (Manual) Myelocytes % (Man) Abs Neuts (Manual) Differential Comment Platelet Estimate Platelet Morphology Stomatocytes Sodium 146 H Potassium 3.4 L Chloride 102 Carbon Dioxide 34.2 H Anion Gap 10 BUN 39 H Creatinine 0.66 Estimated GFR Greater than 89 POC Glucose 200 H 154 H Random Glucose 158 H Calcium 8.9 Magnesium 11/10/17 11/11/17 11/11/17 23:33 06:15 06:15 WBC 14.8 H RBC 3.17 L Hgb 9.5 L Hct 30.3 L MCV 95.6 D MCH 30.0 MCHC 31.4 L RDW 17.7 H Plt Count 277 MPV 7.4 Prelim Diff (Auto) Slide review pending Neut % (Auto) 90.7 H Lymph % (Auto) 4.3 L [place] % (Auto) 4.9 Eos % (Auto) 0.0 Baso % (Auto) 0.1 Neut # (Auto) 13.4 H Lymph # (Auto) 0.6 L [place] # (Auto) 0.7 Eos # (Auto) 0.0 Baso # (Auto) 0.0 WBC Differential Manual diff final Seg Neuts % (Manual) 84 H Band Neuts % (Manual) 6 Lymphocytes % (Manual) 5 L Monocytes % (Manual) 3 Myelocytes % (Man) 2 H Abs Neuts (Manual) 13.6 H Differential Comment . Platelet Estimate Normal Platelet Morphology Normal Stomatocytes 1+ H Sodium 146 H Potassium 3.9 Chloride 102 Carbon Dioxide 37.3 H Anion Gap 7 BUN 32 H Creatinine 0.51 L Estimated GFR Greater than 89 POC Glucose 244 H Random Glucose 173 H Calcium 8.5 Magnesium 2.5 11/11/17 06:15 WBC RBC Hgb Hct MCV MCH MCHC RDW Plt Count MPV Prelim Diff (Auto) Neut % (Auto) Lymph % (Auto) [place] % (Auto) Eos % (Auto) Baso % (Auto) Neut # (Auto) Lymph # (Auto) [place] # (Auto) Eos # (Auto) Baso # (Auto) WBC Differential Seg Neuts % (Manual) Band Neuts % (Manual) Lymphocytes % (Manual) Monocytes % (Manual) Myelocytes % (Man) Abs Neuts (Manual) Differential Comment Platelet Estimate Platelet Morphology Stomatocytes Sodium Potassium Chloride Carbon Dioxide Anion Gap BUN Creatinine Estimated GFR POC Glucose 178 H Random Glucose Calcium Magnesium Microbiology 11/07/17 13:05 Fluid - Pleural fluid Gram Stain - Final 11/07/17 13:05 Fluid - Pleural fluid Body Fluid Culture - Final No growth in 72 hours (aerobically and anaerobically ) - Procedures 08/23- intubation 09/03- bronchoscopy, lung biopsy, thoracentesis 09/08- tracheostomy 09/11- PEG placement Assessment and Plan - Plan Toxic metabolic encephalopathy/CO2 narcosis Quadriparesis Severe cervical spinal cord stenosis, with acute spinal cord injury s/p C2 hemilaminectomy, C3 through 5 lamina plasty secondary to cervical stenosis, spinal stenosis by Dr. Victor MRI C-spine 09/15: Focal severe spinal canal stenosis at C4-5. There is increased signal within the body of the spinal cord at this level most likely representing some myelomalacia. s/p C2 hemilaminectomy, C3 through 5 lamina plasty secondary to cervical stenosis, spinal stenosis by Dr. Victor Neurology Dr. Carvalho. Status post high-dose steroids Head CT 08/23: 2 questionable tiny focal hemorrhages. MRI of brain 08/26 chronic small vessel ischemic and atrophic changes CT brain 09/05 revealed bilateral maxillary sinusitis. No other acute finding -Acetaminophen 650 mg by tube every 6 hours as needed fever -Oxycodone 5 mg every 4 hours, prn. Continue scheduled quetiapine -increased Seroquel to 75 mg BID as continues to pull at t piece. Atrial fibrillation, now NSR Previously elevated troponin downward trend Atherosclerotic coronary artery disease -S/p fluid resuscitation and Levophed Acute, hypoxic hypercapnic respiratory failure COPD with exacerbation/Emphysema Healthcare associated pneumonia Large left-sided pleural effusion Multiple bilateral pulmonary masses vs infiltrate, biopsy shows inflammatory changes -IV Solu-Medrol 40 mg every 12 hours- will continue to taper down-per pulmonary. -DuoNeb every 4 hours scheduled and as needed, Ventilator bundle -s/p left pigtail chest tube placement -continue inhaled budesonide 0.5/2 1 inhalation twice daily -Previous Bilateral pleural effusion/status post chest tube right-sided transudative in nature. Chest tube removed 09/[address] pulmonary angiogram revealed 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 Right middle lobe 2.7 x 2.2 x 7's. Spiculated. Left lingula is 3.4 x 3.20 cm. Underlying pronounced emphysematous CT thorax 09/08 revealed multiple areas of consolidation bilaterally. Prior granulomatous disease. Focal consolidation or mass in the right middle lobe that appears unchanged. Lung mass biopsied on August 28 -results - CHRONIC INFLAMMATORY AND REACTIVE FIBROBLASTIC TISSUE CONTAINING ENTRAPPED BENIGN EPITHELIUM -Followed by pulmonology. -s/p percutaneous tracheostomy 09/08. -Status post thoracentesis left side 09/09 with 1 L fluid removed. No evidence of infection. Hypoalbuminemia C. difficile colitis Acute protein calorie malnutrition -severe -s/p PEG 09/11. Keep n.p.o. until clinically stable -Lansoprazole for GI prophylaxis -Lactulose 30 cc twice daily for bowel regimen/hyperammonemia -P.o. vancomycin 250 for C. difficile completed Urinary retention, possible urinary stricture Acute kidney injury-resolved -Maintain Larson catheter. Monitor urine output, Accurate I's and O's Severe sepsis HCAP Trach site infection - resolved C. difficile colitis-resolved -Zosyn 4.5 g IV every 6 hours resumed 11/07. -will dc IV antibiotics within the next 48 hrs if stable. Diabetes mellitus History of gout -Sliding scale insulin with NovoLog high regimen to maintain euglycemia -Currently on insulin detemir 5 units subcu twice daily. May need to increase Levemir with addition of Solu-Medrol -Holding home medications of allopurinol 300 mg daily and colchicine 0.6 mg as needed -Holding home medications of metformin 500 mg twice daily. PPx: Lovenox 40 mg daily
--- NOTE | 2017-11-11 09:08 | XR ---
EXAM DATE: 11/11/2017 9:03 AM EDT AGE/SEX: 77 years / Male INDICATIONS: Short of breath, evaluate pneumonia CLINICAL DATA: This is the patient's subsequent encounter. Patient reports that signs and symptoms h ave been present for 1 week and indicates a pain score of Nonresponsive. MEDICAL/SURGICAL HISTORY: Emphysema. Diabetes. Hypertension. A-fib . tracheostomy COMPARISON: C, CHEST 1V SINGLE AP, 11/08/2017. . FINDINGS: Tracheostomy tube, left subclavian central venous catheter again noted. There is cardiomegaly, blunti ng of the left lateral costophrenic angle, and to a lesser extent right lateral costophrenic angle, a nd coarse parenchymal markings unchanged. There is patchy parenchymal density in the left lung base w ith partial obscuration of the left hemidiaphragm medially. This is increased from previous study. CONCLUSION: Coarse parenchymal markings are again seen bilaterally with increased airspace disease in the left lo wer lobe. Electronically signed by: Eduardo Vargas MD 11/11/2017 9:07 AM EDT
[2017-11-11] MEDS: Insulin Detemir Inj 1,000 UNIT/10 ML Vial SQ SCH ×2 (09:14→21:07)
[2017-11-11] MEDS: Enoxaparin Inj 40 MG/0.4 ML Syringe SQ SCH (09:14)
[2017-11-11] MEDS: Metoprolol Tartrate 50 MG Tablet NG/OG SCH ×2 (09:14→21:07)
[2017-11-11] MEDS: Chlorhexidine 0.12% Oral Kit 15 ML UDC OROPHARYNG SCH ×2 (09:14→21:06)
[2017-11-11] MEDS: MethylPREDNISolone Sod Succinate Inj 40 MG/ML Vial IV.PUSH SCH (09:15)
[2017-11-11] MEDS: QUEtiapine 25 MG Tablet NG/OG SCH ×2 (09:15→21:07)
[2017-11-11] MEDS: LORazepam 1 MG Tablet G-TUBE PRN ×2 (09:16→21:07)
--- NOTE | 2017-11-11 13:59 | P.PNPAL ---
Reason for Visit Reason for visit: a. To assist with evaluation and management of symptoms including: dyspnea, pain, b. To assist medical decision maker(s) with: better understanding of current medical conditions; weighing benefits/burdens of medical treatment options; making medical treatment decisions. Subjective Subjective/Interval History: Last weekend developed dyspnea. Went to ICU. Workup show left loer obe and right upper lobe infiltreates. left effusion drained with pegtail catheter 1500 ml from left thorax. Pt tolerated spontaneous breathing trials and progressed back to trach collar. Went back to 7th floor, care transferred back to hospitalist. Pt has some secretions and motion for the . Patient starting to follow commands, although at times can become frustrated and agitated. He is able to move all 4 extremities on commands, and he said he have some sensation, especially according to when he soiled himself. Family/Friend Interactions: Spoke with at bedside. Spoke with son over the phone. They understand his chronic lung disease is the issue, and will continue to do so. They however have pointed out that pt was thought to have possibly have cancer, and now mass has shrank on repeat CT. They also have pointed out in the past, family has been told pt likely remain functionally quadriplegic, and now pt can move all 4 extremeties on command. Goals are aggressive short of cpr and shock. Okay with mechanical ventilation. Should pt become unstable, they would want pt to be transferred to ICU. Advance Directives Living Will: Never completed Health Care Surrogate: Never completed Durable Power of [employer] Program Coordinator: Never completed Objective Vital Signs: Vital Signs 11/10/17 15:58 11/10/17 16:00 11/10/17 18:23 Temperature 98.2 F Pulse Rate 98 H 99 H Respiratory Rate 18 20 Blood Pressure 128/79 Pulse Oximetry 95 95 11/10/17 20:00 11/10/17 20:07 11/10/17 23:49 Temperature 98.3 F Pulse Rate 111 H 112 H 111 H Respiratory Rate 22 22 28 H Blood Pressure 149/83 H Pulse Oximetry 97 96 11/11/17 00:00 11/11/17 04:00 11/11/17 04:11 Temperature 99 F 97.8 F Pulse Rate 103 H 84 83 Respiratory Rate 18 18 18 Blood Pressure 119/79 113/69 Pulse Oximetry 99 99 11/11/17 08:00 11/11/17 12:00 Temperature 98 F 97.8 F Pulse Rate 82 88 Respiratory Rate 18 16 Blood Pressure 131/84 137/76 Pulse Oximetry 99 99 Intake & Output 11/10/17 11/11/17 11/11/17 18:59 06:59 18:59 Intake Total 1000 / 1000 1445 / 1445 Output Total 850 / 850 600 / 600 Balance 150 / 150 845 / 845 Weight 69.8 kg Intake: IV 100 / 100 200 / 200 Zosyn 4.5 GM Premix 4.5 gm In 100 / 100 200 / 200 100 ml @ 200 mls/hr IV.SIG Q6H [facility] Rx#:[id number] Tube Feeding 450 / 450 495 / 495 Tube Irrigant 150 / 150 Water Bolus Amount 450 / 450 600 / 600 Output: Stool 0 / 0 Urine/Stool Mix 0 / 0 Urine Amount (Catheter) 850 / 850 600 / 600 Indwelling Urethral Catheter 850 / 850 600 / 600 Other: Date of Last Bowel Movement 11/10/17 11/10/17 11/10/17 # Bowel Movements 1 # Incontinent Bowel Movements 1 Physical Exam: CONSTITUTIONAL/GENERAL: This is an adequately nourished patient , t bar. TUBES/LINES/DRAINS: trach- t piece, ceja, PIV x2 BUE, SKIN: No jaundice, rashes, or lesions. No wounds seen anteriorly. skin warm/ dry EYES: no eye opening. No injection or drainage. Fundi not examined. ENT: Nose without bleeding or purulent drainage. Limited oropharynx exam 2/2 + T piece CARDIOVASCULAR: RRR without murmurs. No JVD. Peripheral pulses symmetric. Trace periph edema to hands. RESPIRATORY/CHEST: unlabored respirations Coarse breath sounds. Diminished sounds bases. GASTROINTESTINAL: Abdomen soft, non-tender, nondistended. No hepato-splenomegaly , or palpable masses. Bowel sounds present. TF infusing peg MUSCULOSKELETAL: Trace +BUE edema. +soft restraints lower ext. No mottling or clubbing. NEUROLOGICAL: Can move all extremeitie on command, lift both arms above head, and move both feet. PSYCH: less confused, can follow some commands. Can be agitated at times. Diagnostic Tests Laboratory: Laboratory Results - last 72 hr 11/08/17 11/08/17 11/09/17 18:41 23:55 04:20 WBC 12.6 H RBC 2.88 L Hgb 8.7 L Hct 26.4 L MCV 91.5 MCH 30.1 MCHC 32.9 RDW 17.2 Plt Count 268 MPV 7.6 Prelim Diff (Auto) Neut % (Auto) 93.0 H Lymph % (Auto) 4.5 L [place] % (Auto) 2.4 Eos % (Auto) 0.0 Baso % (Auto) 0.1 Neut # (Auto) 11.7 H Lymph # (Auto) 0.6 L [place] # (Auto) 0.3 Eos # (Auto) 0.0 Baso # (Auto) 0.0 WBC Differential . Seg Neuts % (Manual) Band Neuts % (Manual) Lymphocytes % (Manual) Monocytes % (Manual) Myelocytes % (Man) Abs Neuts (Manual) Differential Comment Auto diff final Platelet Estimate Platelet Morphology Stomatocytes Sodium Potassium Chloride Carbon Dioxide Anion Gap BUN Creatinine Estimated GFR POC Glucose 213 H 184 H Random Glucose Calcium Magnesium 11/09/17 11/09/17 11/09/17 05:58 13:58 17:43 WBC RBC Hgb Hct MCV MCH MCHC RDW Plt Count MPV Prelim Diff (Auto) Neut % (Auto) Lymph % (Auto) [place] % (Auto) Eos % (Auto) Baso % (Auto) Neut # (Auto) Lymph # (Auto) [place] # (Auto) Eos # (Auto) Baso # (Auto) WBC Differential Seg Neuts % (Manual) Band Neuts % (Manual) Lymphocytes % (Manual) Monocytes % (Manual) Myelocytes % (Man) Abs Neuts (Manual) Differential Comment Platelet Estimate Platelet Morphology Stomatocytes Sodium Potassium Chloride Carbon Dioxide Anion Gap BUN Creatinine Estimated GFR POC Glucose 176 H 231 H 179 H Random Glucose Calcium Magnesium 11/09/17 11/10/17 11/10/17 23:25 07:01 12:28 WBC RBC Hgb Hct MCV MCH MCHC RDW Plt Count MPV Prelim Diff (Auto) Neut % (Auto) Lymph % (Auto) [place] % (Auto) Eos % (Auto) Baso % (Auto) Neut # (Auto) Lymph # (Auto) [place] # (Auto) Eos # (Auto) Baso # (Auto) WBC Differential Seg Neuts % (Manual) Band Neuts % (Manual) Lymphocytes % (Manual) Monocytes % (Manual) Myelocytes % (Man) Abs Neuts (Manual) Differential Comment Platelet Estimate Platelet Morphology Stomatocytes Sodium Potassium Chloride Carbon Dioxide Anion Gap BUN Creatinine Estimated GFR POC Glucose 94 234 H 200 H Random Glucose Calcium Magnesium 11/10/17 11/10/17 11/10/17 12:30 17:28 23:33 WBC RBC Hgb Hct MCV MCH MCHC RDW Plt Count MPV Prelim Diff (Auto) Neut % (Auto) Lymph % (Auto) [place] % (Auto) Eos % (Auto) Baso % (Auto) Neut # (Auto) Lymph # (Auto) [place] # (Auto) Eos # (Auto) Baso # (Auto) WBC Differential Seg Neuts % (Manual) Band Neuts % (Manual) Lymphocytes % (Manual) Monocytes % (Manual) Myelocytes % (Man) Abs Neuts (Manual) Differential Comment Platelet Estimate Platelet Morphology Stomatocytes Sodium 146 H Potassium 3.4 L Chloride 102 Carbon Dioxide 34.2 H Anion Gap 10 BUN 39 H Creatinine 0.66 Estimated GFR Greater than 89 POC Glucose 154 H 244 H Random Glucose 158 H Calcium 8.9 Magnesium 11/11/17 11/11/17 11/11/17 06:15 06:15 06:15 WBC 14.8 H RBC 3.17 L Hgb 9.5 L Hct 30.3 L MCV 95.6 D MCH 30.0 MCHC 31.4 L RDW 17.7 H Plt Count 277 MPV 7.4 Prelim Diff (Auto) Slide review pending Neut % (Auto) 90.7 H Lymph % (Auto) 4.3 L [place] % (Auto) 4.9 Eos % (Auto) 0.0 Baso % (Auto) 0.1 Neut # (Auto) 13.4 H Lymph # (Auto) 0.6 L [place] # (Auto) 0.7 Eos # (Auto) 0.0 Baso # (Auto) 0.0 WBC Differential Manual diff final Seg Neuts % (Manual) 84 H Band Neuts % (Manual) 6 Lymphocytes % (Manual) 5 L Monocytes % (Manual) 3 Myelocytes % (Man) 2 H Abs Neuts (Manual) 13.6 H Differential Comment . Platelet Estimate Normal Platelet Morphology Normal Stomatocytes 1+ H Sodium 146 H Potassium 3.9 Chloride 102 Carbon Dioxide 37.3 H Anion Gap 7 BUN 32 H Creatinine 0.51 L Estimated GFR Greater than 89 POC Glucose 178 H Random Glucose 173 H Calcium 8.5 Magnesium 2.5 11/11/17 12:30 WBC RBC Hgb Hct MCV MCH MCHC RDW Plt Count MPV Prelim Diff (Auto) Neut % (Auto) Lymph % (Auto) [place] % (Auto) Eos % (Auto) Baso % (Auto) Neut # (Auto) Lymph # (Auto) [place] # (Auto) Eos # (Auto) Baso # (Auto) WBC Differential Seg Neuts % (Manual) Band Neuts % (Manual) Lymphocytes % (Manual) Monocytes % (Manual) Myelocytes % (Man) Abs Neuts (Manual) Differential Comment Platelet Estimate Platelet Morphology Stomatocytes Sodium Potassium Chloride Carbon Dioxide Anion Gap BUN Creatinine Estimated GFR POC Glucose 124 H Random Glucose Calcium Magnesium Result Diagrams: 11/11/17 06:15 11/11/17 06:15 Microbiology: Microbiology 11/07/17 13:05 Gram Stain - Final Fluid - Pleural fluid Body Fluid Culture - Final No growth in 72 hours (aerobically and anaerobically) 11/07/17 13:05 Acid Fast Bacilli Smear - Final Fluid - Pleural fluid No acid fast bacilli seen 11/07/17 13:05 Gram Stain - Final Sputum - Endotracheal Sputum Culture - Final Pseudomonas aeruginosa Citrobacter koseri Imaging: ITS Impressions Cervical Spine X-Ray 09/19/17 00:00 CONCLUSION: Surgical hardware noted posteriorly at the C3-C5 levels. Cervical Spine MRI 09/25/17 00:00 CONCLUSION: 1. Status post laminectomy at the C3-C5 levels. Surgical hardware seen at the posterior elements at these levels. 2. Moderate stenosis at the C4-C5 level secondary to disc bulge and central disc protrusion. There is abnormal signal again seen within the cord. The cord appears small this region. This likely secondary to myelomalacia. 3. Mild to moderate narrowing of the thecal sac at the C5-C6 and C6-C7 level. 4. Neural foraminal narrowing throughout the cervical spine as described above. Abdomen X-Ray 10/12/17 00:00 CONCLUSION: Nonspecific bowel gas pattern as above without significant distention Minimal consolidative changes right base with trace pleural effusion. Chest CT 11/07/17 11:33 CONCLUSION: 1. Chronic emphysematous change. There is also increased interstitial markings throughout the lungs which are likely chronic. 2. Suspected atelectasis in the left lower lobe and the right upper lobe. 3. Bilateral pleural effusions being moderate on the left and mild on the right. 4. Evidence of prior granulomatous exposure. Chest X-Ray 11/11/17 00:00 CONCLUSION: Coarse parenchymal markings are again seen bilaterally with increased airspace disease in the left lower lobe. 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 Right middle lobe 2.7 x 2.2 x 7's. Spiculated. Left lingula is 3.4 x 3.20 cm. COPD (2) SVT (supraventricular tachycardia) (3) Lung mass Comment: revealed 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 Right middle lobe 2.7 x 2.2 x 7's. Spiculated. Left lingula is 3.4 x 3.20 cm. 1st biopsy did not show malignancy. 2nd biopsy on hold to risk of decompensation. Pulmonlogy advise against 2nd biopsy given risk. Recommends repeat CT in 4 weeks. If mass decrease in size, more possiblility its infections rather than malignancy. (4) Diabetes (5) Gout (6) Spinal stenosis - Symptom Scale (1) Dyspnea 0-10 Scale: 3 (2) Pain 0-10 Scale: Unable to quantify Pertinent Non-Medical Issues: Psychosocial: Retired. He was living at home with his Tommie Gutierrez and his son "Cristina Palmer. . Speaks Mandarin only. . Spiritual: unk at this time Legal: Per [place] statutes legal decision maker proxy is pt's . It appears she may have been deferring to son but has been present for major decisions. Family works together Ethical issues impacting care: no issues identified Important Contacts: Spencer Reilly [phone] Son "Cristina Palmer [phone] Prognosis: 77 yo underlying diastolic heart failure, severe spinal stenosis (s/p surgery) , lung disease and DM. Lung mass/nodule from recent CT(10/30) has decrease in size, so unlikely malignancy, despite no 2nd biopsy. Pt has made more progress neurologically, can move both arms above head on commands, and can move both feet on command. He is also getting less confused. Code Status: Alternative Code Plan: CODE STATUS - Alternate code. Yes to intubation and mechanical ventilation. no to cpr/ shock/ acls drugs. Capacity- he does not appears to be able to weigh the risk and benefits of decision on my visit. Alertness has improved. At times agitated and still fluctuates between drowsiness and alert ness. LEGAL DECISION MAKER - per [place] statutes is proxy , who defers decisions to son, [place], family all working together. Family meetings- multiple family meetings. They have also met with hospice before ([place](son_ and pt's together). At times I have met with alone , at times with [place] (son). [facility] had been use for family meetings. They have decline hospice. Family discussion again with spouse and pt's son. Spoke with at bedside. Spoke with son over the phone. They understand his chronic lung disease is the issue, and will continue to do so. They however have pointed out that pt was thought to have possibly have cancer, and now mass has shrank on repeat CT. They also have pointed out in the past, family has been told pt likely remain functionally quadriplegic, and now pt can move all 4 extremeties on command. Goals are aggressive short of cpr and shock. Okay with mechanical ventilation. Should pt become unstable, they would want pt to be transferred to ICU. SYMPTOMS * shortness of breath -. Questionable malignancy, hx remote TB. O. Status post tracheostomy. risk of decompensation. Family amenable to transferring back to icu, if respiratory status clinically worsen. * pain - ?cause? presented with right side and thoracic pain. imaging showing lung nodules. buttock wound. BX benign, ?repeat. appears comfortable, no signs of pain on exam. Palliative care will continue to follow during hospital course as condition evolves to assist patient/decision maker with understanding of medical conditions, benefits/burdens of treatment options, clarification of goals of treatment, and will assist with symptoms of palliative concern. Attestation Attestation: To help prompt me to consider important information that might be impacting today's encounter and assessment, information from prior notes written by myself or my colleagues may have been "brought forward" into today's note. My signature on this note, however, is an attestation that I personally performed the exam, history, and/or decision-making noted today, and, unless otherwise indicated, the interactions with patient, family, and staff as well as the review of records all occurred today. I also attest that the listed assessment and stated plan reflect my best clinical judgment today based on the combination of historical information, prior notes, and today's exam/ interactions. When time spent is documented, it refers only to time spent today by the signer, or if indicated, combined time spent today by collaborating physician/nurse practitioner.
--- NOTE | 2017-11-11 17:45 | P.PN ---
Subjective Interval history: alert and agitated. Pulls at tubes. O2 sat 96 on 30 % No fever. Physical Exam Vital signs: Vital Signs 11/10/17 18:23 11/10/17 20:00 11/10/17 20:07 Temperature 98.3 F Pulse Rate 111 H 112 H Respiratory Rate 22 22 Blood Pressure 149/83 H Pulse Oximetry 95 97 11/10/17 23:49 11/11/17 00:00 11/11/17 04:00 Temperature 99 F 97.8 F Pulse Rate 111 H 103 H 84 Respiratory Rate 28 H 18 18 Blood Pressure 119/79 113/69 Pulse Oximetry 96 99 99 11/11/17 04:11 11/11/17 08:00 11/11/17 12:00 Temperature 98 F 97.8 F Pulse Rate 83 82 88 Respiratory Rate 18 18 16 Blood Pressure 131/84 137/76 Pulse Oximetry 99 99 11/11/17 16:00 Temperature 98.3 F Pulse Rate 101 H Respiratory Rate 18 Blood Pressure 143/83 H Pulse Oximetry Intake & Output 11/10/17 11/11/17 11/11/17 18:59 06:59 18:59 Intake Total 1000 / 1000 1545 / 1545 Output Total 850 / 850 600 / 600 Balance 150 / 150 945 / 945 Weight 69.8 kg Intake: IV 100 / 100 300 / 300 Zosyn 4.5 GM Premix 4.5 gm In 100 / 100 300 / 300 100 ml @ 200 mls/hr IV.SIG Q6H [facility] Rx#:[id number] Tube Feeding 450 / 450 495 / 495 Tube Irrigant 150 / 150 Water Bolus Amount 450 / 450 600 / 600 Output: Stool 0 / 0 Urine/Stool Mix 0 / 0 Urine Amount (Catheter) 850 / 850 600 / 600 Indwelling Urethral Catheter 850 / 850 600 / 600 Other: Date of Last Bowel Movement 11/10/17 11/10/17 11/10/17 # Bowel Movements 1 # Incontinent Bowel Movements 1 Narrative: GENERAL:Elderly male in No distress. SKIN: Warm and dry. No rash HEAD: Atraumatic. Normocephalic. EYES: Pupils equal and round . No conjunctival icterus. No injection or drainage. ENT: No nasal bleeding or discharge. Mucous membranes dry. NECK: Trachea midline. Trach site with minimal drainage. CARDIOVASCULAR: Regular rate and rhythm. No JVD LUNGS: Occ wheezes appreciated bilaterally. Few basal crackles. GASTROINTESTINAL: Abdomen soft, non-tender, nondistended. PEG in place. No guarding. MUSCULOSKELETAL: Extremities without significant peripheral edema. NEUROLOGICAL: Seems alert and , He moves upper extremities spontaneously, withdraws lower extremities. - Urinary Catheter Management Indwelling Urethral Catheter Cath placed during this visit: yes Urethral indwelling: Yes Reason for continuing: Chronic Urinary Retention Insertion date: 08/20/17 Insertion time: 17:00 Results - Labs CBC & Chem 7: 11/11/17 06:15 11/11/17 06:15 Laboratory Results - last 24 hr 11/10/17 11/11/17 11/11/17 23:33 06:15 06:15 WBC 14.8 H RBC 3.17 L Hgb 9.5 L Hct 30.3 L MCV 95.6 D MCH 30.0 MCHC 31.4 L RDW 17.7 H Plt Count 277 MPV 7.4 Prelim Diff (Auto) Slide review pending Neut % (Auto) 90.7 H Lymph % (Auto) 4.3 L [place] % (Auto) 4.9 Eos % (Auto) 0.0 Baso % (Auto) 0.1 Neut # (Auto) 13.4 H Lymph # (Auto) 0.6 L [place] # (Auto) 0.7 Eos # (Auto) 0.0 Baso # (Auto) 0.0 WBC Differential Manual diff final Seg Neuts % (Manual) 84 H Band Neuts % (Manual) 6 Lymphocytes % (Manual) 5 L Monocytes % (Manual) 3 Myelocytes % (Man) 2 H Abs Neuts (Manual) 13.6 H Differential Comment . Platelet Estimate Normal Platelet Morphology Normal Stomatocytes 1+ H Sodium 146 H Potassium 3.9 Chloride 102 Carbon Dioxide 37.3 H Anion Gap 7 BUN 32 H Creatinine 0.51 L Estimated GFR Greater than 89 POC Glucose 244 H Random Glucose 173 H Calcium 8.5 Magnesium 2.5 11/11/17 11/11/17 06:15 12:30 WBC RBC Hgb Hct MCV MCH MCHC RDW Plt Count MPV Prelim Diff (Auto) Neut % (Auto) Lymph % (Auto) [place] % (Auto) Eos % (Auto) Baso % (Auto) Neut # (Auto) Lymph # (Auto) [place] # (Auto) Eos # (Auto) Baso # (Auto) WBC Differential Seg Neuts % (Manual) Band Neuts % (Manual) Lymphocytes % (Manual) Monocytes % (Manual) Myelocytes % (Man) Abs Neuts (Manual) Differential Comment Platelet Estimate Platelet Morphology Stomatocytes Sodium Potassium Chloride Carbon Dioxide Anion Gap BUN Creatinine Estimated GFR POC Glucose 178 H 124 H Random Glucose Calcium Magnesium - Imaging Impressions Chest X-Ray 11/11/17 00:00 CONCLUSION: Coarse parenchymal markings are again seen bilaterally with increased airspace disease in the left lower lobe. - Procedures 08/23- intubation 09/03- bronchoscopy, lung biopsy, thoracentesis 09/08- tracheostomy 09/11- PEG placement Assessment and Plan - Assessment (1) Cervical myelopathy Code(s): G95.9 - Disease of spinal cord, unspecified Status: Acute (2) Respiratory failure Code(s): J96.90 - Respiratory failure, unspecified, unspecified whether with hypoxia or hypercapnia Status: Acute (3) SVT (supraventricular tachycardia) Code(s): I47.1 - Supraventricular tachycardia Status: Acute (4) Lung mass Code(s): R91.8 - Other nonspecific abnormal finding of lung field Status: Acute (5) Diabetes Code(s): E11.9 - Type 2 diabetes mellitus without complications Status: Acute (6) Gout Code(s): M10.9 - Gout, unspecified Status: Acute (7) Spinal stenosis Code(s): M48.00 - Spinal stenosis, site unspecified Status: Acute (8) Dyspnea Code(s): R06.00 - Dyspnea, unspecified Status: Acute - Plan 1. Cont T Bar at 30 % FIO2 . 2. Trach lavage and suction PRN 3. Cont Duoneb nebs qid. 4. BMP ,CBC in am 5. Tube feeds at 60CC 6. PT evaluation. 7. Up in chair as tolerated 8. Continue antibiotics till am
[2017-11-12] MEDS: Insulin NovoLOG Aspart Correctional Sugar Inj SQ SCH ×5 (00:14→18:14)
[2017-11-12] MEDS: Oral Hygiene Kit OROPHARYNG SCH ×4 (00:14→16:00)
[2017-11-12] MEDS: Piperacil/Tazo 4.5 GM Premix 4.5 GM/100 ML BAG IV.SIG SCH ×4 (00:14→22:33)
[2017-11-12] MEDS: Metoprolol Tartrate 50 MG Tablet NG/OG SCH ×2 (08:28→22:33)
[2017-11-12] MEDS: LORazepam 1 MG Tablet G-TUBE PRN ×2 (08:28→22:34)
[2017-11-12] MEDS: QUEtiapine 25 MG Tablet NG/OG SCH ×2 (08:28→22:33)
[2017-11-12] MEDS: Enoxaparin Inj 40 MG/0.4 ML Syringe SQ SCH (08:28)
[2017-11-12] MEDS: Chlorhexidine 0.12% Oral Kit 15 ML UDC OROPHARYNG SCH ×2 (08:29→19:48)
[2017-11-12] MEDS: Insulin Detemir Inj 1,000 UNIT/10 ML Vial SQ SCH ×2 (08:29→22:33)
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
--- NOTE | 2017-11-12 17:38 | P.PN ---
Subjective Interval history: Alert and agitated at times. On a T Bar and FIO2 at 40 %. Seems to move arms better. Physical Exam Vital signs: Vital Signs 11/11/17 19:58 11/11/17 20:00 11/12/17 00:00 Temperature 98 F 97.7 F Pulse Rate 99 H 101 H 75 Respiratory Rate 20 20 20 Blood Pressure 127/80 92/52 L Pulse Oximetry 100 98 99 11/12/17 04:00 11/12/17 07:00 11/12/17 08:00 Temperature 97.8 F 96.8 F L Pulse Rate 96 H 115 H Respiratory Rate 20 22 Blood Pressure 144/91 H 142/89 H Pulse Oximetry 97 97 96 11/12/17 10:20 11/12/17 12:00 Temperature Pulse Rate 103 H 109 H Respiratory Rate 24 20 Blood Pressure 121/68 Pulse Oximetry 99 98 Intake & Output 11/11/17 11/12/17 11/12/17 18:59 06:59 18:59 Intake Total 1250 / 1250 1520 / 1520 Output Total 0 / 0 1100 / 1100 Balance 1250 / 1250 420 / 420 Intake: IV 100 / 100 200 / 200 Zosyn 4.5 GM Premix 4.5 gm In 100 / 100 200 / 200 100 ml @ 200 mls/hr IV.SIG Q6H [facility] Rx#:[id number] Tube Feeding 750 / 750 720 / 720 Tube Irrigant 0 / 0 Water Bolus Amount 400 / 400 600 / 600 Output: Stool 0 / 0 Urine/Stool Mix 0 / 0 Urine Amount (Catheter) 1100 / 1100 Indwelling Urethral Catheter 1100 / 1100 Other: Date of Last Bowel Movement 11/11/17 11/12/17 # Bowel Movements 2 # Incontinent Bowel Movements 2 Narrative: GENERAL:Elderly male in bed in acute distress. SKIN: Warm and dry. No rash HEAD: Atraumatic. Normocephalic. EYES: Pupils equal and round . No conjunctival icterus. No injection or drainage. ENT: No nasal bleeding or discharge. Mucous membranes dry. NECK: Trachea midline. Trach site with minimal drainage. CARDIOVASCULAR: Regular rate and rhythm. No JVD LUNGS: Occ wheezes appreciated bilaterally. Few basal crackles. GASTROINTESTINAL: Abdomen soft, non-tender, nondistended. PEG in place. No guarding. MUSCULOSKELETAL: Extremities without significant peripheral edema. NEUROLOGICAL: Seems alert and , He moves upper extremities spontaneously, withdraws lower extremities but is weak. - Urinary Catheter Management Indwelling Urethral Catheter Cath placed during this visit: yes Urethral indwelling: Yes Reason for continuing: Not indwelling catheter Insertion date: 08/20/17 Insertion time: 17:00 Results - Labs CBC & Chem 7: 11/11/17 06:15 11/11/17 06:15 Laboratory Results - last 24 hr 11/11/17 11/12/17 11/12/17 17:58 00:03 05:55 POC Glucose 126 H 147 H 110 11/12/17 11/12/17 12:17 17:29 POC Glucose 109 115 H - Procedures 08/23- intubation 09/03- bronchoscopy, lung biopsy, thoracentesis 09/08- tracheostomy 09/11- PEG placement Assessment and Plan - Assessment (1) Cervical myelopathy Code(s): G95.9 - Disease of spinal cord, unspecified Status: Acute (2) Respiratory failure Code(s): J96.90 - Respiratory failure, unspecified, unspecified whether with hypoxia or hypercapnia Status: Acute (3) SVT (supraventricular tachycardia) Code(s): I47.1 - Supraventricular tachycardia Status: Acute (4) Lung mass Code(s): R91.8 - Other nonspecific abnormal finding of lung field Status: Acute (5) Diabetes Code(s): E11.9 - Type 2 diabetes mellitus without complications Status: Acute (6) Gout Code(s): M10.9 - Gout, unspecified Status: Acute (7) Spinal stenosis Code(s): M48.00 - Spinal stenosis, site unspecified Status: Acute (8) Dyspnea Code(s): R06.00 - Dyspnea, unspecified Status: Acute - Plan 1. Cont T Bar at 35 % FIO2 . 2. Trach lavage and suction PRN 3. Cont Duoneb nebs qid. 4. Add CPAP 5/10 CM at HS 5. Tube feeds at 60CC 6. PT evaluation. 7. Up in chair as tolerated 8. Chest Xray in am
[2017-11-13] MEDS: Oral Hygiene Kit OROPHARYNG SCH ×4 (01:08→16:00)
[2017-11-13] MEDS: Insulin NovoLOG Aspart Correctional Sugar Inj SQ SCH ×4 (01:08→19:12)
[2017-11-13] MEDS: Temazepam 15 MG Capsule PO PRN (01:13)
[2017-11-13] MEDS: Piperacil/Tazo 4.5 GM Premix 4.5 GM/100 ML BAG IV.SIG SCH ×3 (05:40→21:25)
--- NOTE | 2017-11-13 06:43 | XR ---
EXAM DATE: 11/13/2017 6:38 AM EDT AGE/SEX: 77 years / Male INDICATIONS: Short of breath, evaluate infiltrate CLINICAL DATA: This is the patient's subsequent encounter. Patient reports that signs and symptoms h ave been present for 2 weeks and indicates a pain score of Nonresponsive. MEDICAL/SURGICAL HISTORY: Diabetes. Emphysema. Hypertension. A-fib . tracheostomy COMPARISON: [facility] [place], CHEST 1V SINGLE AP, 11/11/2017. . FINDINGS: Patchy left greater than right parenchymal consolidation and small effusions are again noted and not significantly changed. No pneumothorax seen. Heart size stable, within normal limits. Tracheostomy tube again noted. There is a left subclavian ce ntral venous catheter again seen with tip in the superior vena cava. CONCLUSION: No significant change. Electronically signed by: Ino Jackson MD 11/13/2017 6:41 AM EDT
[2017-11-13 07:34] LABS: Hematocrit 31.3 % (39.0-51.0); Mean Corpuscular HGB Conc 31.8 % (32.0-36.0); Mean Corpuscular Hemoglobin 30.6 pg (27.0-34.0); Mean Corpuscular Volume 96.2 fL (80.0-100.0); Mean Platelet Volume 7.4 fL (7.0-11.0); Platelet Count 207 th/mm3 (150-450); Red Blood Count 3.26 mil/mm3 (4.50-5.90); Red Cell Distribution Width 17.3 % (11.6-17.2); White Blood Count 11.3 th/mm3 (4.0-11.0)
[2017-11-13] MEDS: Enoxaparin Inj 40 MG/0.4 ML Syringe SQ SCH (08:44)
[2017-11-13] MEDS: Insulin Detemir Inj 1,000 UNIT/10 ML Vial SQ SCH ×2 (08:44→21:06)
[2017-11-13] MEDS: Chlorhexidine 0.12% Oral Kit 15 ML UDC OROPHARYNG SCH ×2 (08:44→20:00)
[2017-11-13] MEDS: Metoprolol Tartrate 50 MG Tablet NG/OG SCH ×2 (08:44→21:04)
[2017-11-13] MEDS: QUEtiapine 25 MG Tablet NG/OG SCH ×2 (08:44→21:05)
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
[2017-11-14] MEDS: Temazepam 15 MG Capsule PO PRN (01:54)
[2017-11-14] MEDS: Oral Hygiene Kit OROPHARYNG SCH ×4 (04:00→16:00)
[2017-11-14] MEDS: LORazepam 1 MG Tablet G-TUBE PRN ×2 (05:38→12:56)
[2017-11-14] MEDS: Piperacil/Tazo 4.5 GM Premix 4.5 GM/100 ML BAG IV.SIG SCH ×3 (05:39→22:04)
[2017-11-14] MEDS: Insulin NovoLOG Aspart Correctional Sugar Inj SQ SCH ×4 (06:00→18:00)
[2017-11-14] MEDS: Chlorhexidine 0.12% Oral Kit 15 ML UDC OROPHARYNG SCH ×2 (08:00→20:36)
[2017-11-14] MEDS: QUEtiapine 25 MG Tablet NG/OG SCH ×2 (09:00→21:33)
[2017-11-14] MEDS: Metoprolol Tartrate 50 MG Tablet NG/OG SCH ×2 (09:00→21:33)
[2017-11-14] MEDS: Enoxaparin Inj 40 MG/0.4 ML Syringe SQ SCH (09:00)
--- NOTE | 2017-11-14 09:52 | P.PNIM ---
Subjective Interval history: Discussed with RN. Patient with intermittent agitation requiring restraints. He is pulling on lines and tubes. Seroquel and pain medication is helping but Ativan is not helping. Physical Exam Vital signs: Vital Signs 11/13/17 12:00 11/13/17 16:00 11/13/17 19:00 Temperature 98.6 F 96.8 F L Pulse Rate 78 78 97 H Respiratory Rate 20 18 28 H Blood Pressure 98/58 L 110/48 L Pulse Oximetry 98 95 98 11/13/17 20:00 11/13/17 23:46 11/14/17 00:00 Temperature 97 F L 98.2 F Pulse Rate 101 H 83 Respiratory Rate 22 22 Blood Pressure 147/87 H 117/69 Pulse Oximetry 98 95 99 11/14/17 04:00 Temperature 98 F Pulse Rate 100 H Respiratory Rate 22 Blood Pressure 114/72 Pulse Oximetry 98 Intake & Output 11/13/17 11/14/17 11/14/17 18:59 06:59 18:59 Intake Total 1260 / 1260 1410 / 1410 100 / 100 Output Total 1200 / 1200 1100 / 1100 Balance 60 / 60 310 / 310 100 / 100 Weight 69.3 kg Intake: IV 100 / 100 100 / 100 100 / 100 Zosyn 4.5 GM Premix 4.5 gm In 100 / 100 100 / 100 100 / 100 100 ml @ 200 mls/hr IV.SIG Q8HR [facility] Rx#:[id number] Oral 0 / 0 Tube Feeding 660 / 660 660 / 660 Tube Irrigant 0 / 0 150 / 150 Water Bolus Amount 500 / 500 500 / 500 Anesthesia Amount 0 / 0 Output: Urine 0 / 0 Stool 0 / 0 Urine/Stool Mix 0 / 0 Urine Amount (Catheter) 1200 / 1200 1100 / 1100 Indwelling Urethral Catheter 1200 / 1200 1100 / 1100 Other: Date of Last Bowel Movement 11/13/17 11/13/17 # Bowel Movements 1 1 Narrative: GENERAL: Elderly male in bed agitated NECK: Trachea midline. Trach site with minimal drainage. CARDIOVASCULAR: Regular rate and rhythm. No JVD LUNGS: Upper airway/tracheal congestion. Diminished breath sounds at the bases bilaterally GASTROINTESTINAL: Abdomen soft, non-tender, nondistended. PEG in place. No guarding. MUSCULOSKELETAL: Extremities without significant peripheral edema. NEUROLOGICAL: Alert, moves upper extremities against soft restraints. - Urinary Catheter Management Indwelling Urethral Catheter Cath placed during this visit: yes Urethral indwelling: Yes Reason for continuing: Chronic Urinary Retention Insertion date: 08/20/17 Insertion time: 17:00 Results - Labs CBC & Chem 7: 11/13/17 06:48 11/11/17 06:15 Laboratory Results - last 24 hr 11/13/17 11/13/17 11/14/17 13:32 23:54 05:35 POC Glucose 92 154 H 110 - Procedures 08/23- intubation 09/03- bronchoscopy, lung biopsy, thoracentesis 09/08- tracheostomy 09/11- PEG placement Assessment and Plan - Plan 77-year-old man with a medical history significant for hypertension, gout, diabetes who initially presented with pain in his groin and back. CT angiogram showed bilateral emphysema and pulmonary nodules with compressive atelectasis of right lower lobe. Patient underwent a biopsy which showed chronic inflammation, and reactive fibroblastic tissue. He was also found to have significant spinal stenosis and underwent a laminectomy by neurosurgery. The patient's hospital stay was complicated by septic shock secondary to hospital- acquired pneumonia and C. difficile. Severe cervical spinal stenosis/severe encephalopathy s/p C2 hemicolectomy, C3 through C5 laminoplasty with quadriplegia and acute spinal injury MRI C-spine 09/15: Focal severe spinal canal stenosis at C4-5. And otherwise moderate changes on other levels Head CT 08/23: 2 questionable tiny focal hemorrhages. MRI of brain 08/26 chronic small vessel ischemic and atrophic changes. EEG 09/03 revealed severe encephalopathy. No epileptiform activity Neurosurgery Dr. Victor consulted, Poor chance of neurological recovery for him, no further surgical intervention per son. Neurology Dr. Carvalho. Patient treated with steroids per neurology recommendations, course completed. 11/14/17 discontinue Ativan as this may worsen agitation in this age group. Hypertension, CAD, A. fib Blood pressure remains stable Amiodarone previously stopped due to bradycardia Continue metoprolol and digoxin Acute on chronic respiratory failure secondary to COPD CT pulmonary angiogram revealed multiple masses. 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 Pulmonology has advised against doing a second biopsy given risk. Repeat CT scan recommended in 4 weeks, if mass decrease in size more likely that this is infectious etiology malignancy. Continue trach lavage and suction as needed, continue 35% FiO2 to collar Course of Levaquin completed on 10/21/2017 Appreciate pulmonology following Severe malnutrition Tolerating tube feeds Continue to increase p.o. diet as tolerated Urinary retention Larson in place per urology Type 2 diabetes Accu-Cheks with sliding scale insulin coverage Diabetic diet Sepsis, trach infection, hospital-acquired pneumonia, C. difficile colitis All resolved DVT Prophylaxis Heparin Discharge Planning: Awaiting placement.
[2017-11-14] MEDS: Insulin Detemir Inj 1,000 UNIT/10 ML Vial SQ SCH ×2 (12:57→21:30)
--- NOTE | 2017-11-14 15:25 | P.DIET ---
Nutritional Evaluation Type of nutrition evaluation: follow-up Nutrition consult regarding: Tube Feeding Nutrition screening: Pressure Injury Subjective Subjective Comments: Pt speaks only Mandarin. Objective - Diagnosis Pulmonary Mass, Pulmonary Infiltrates - Objective % IBW: 132 (IBW = 118#) Body Weight Used for Calculations: Upper end of IBW (59 kg) Energy Needs - Lower Range (kCal/kg): 30 Energy Needs - Upper Range (kCal/kg): 35 Lower Limit kCal/kg (kCals): 1,770 Upper Limit kCal/kg (kCals): 2,065 Lower Limit Protein Factor (Grams per Kg): 1.2 Upper Limit Protein Factor (Grams per Kg): 1.5 Lower Protein Needs (Protein): 71 Upper Protein Needs (Protein): 89 Dietitian Reviewed in Medical Record: Curent medications, Intake & Output, Labs , Medical history, Tube feeding, Wound/DTI Diet Order: TFing only Speech Therapy Recommendations: Yes (Strict NPO) Objective Comments: Hx includes HTN, DM, Gout, TB (10 years ago) 09/11 PEG placed 09/19 C3-5 laminoplasty Feeding - Current Tube Feeding Tube Feeding Product: Glucerna 1.5 Tube Feeding Method: Pump Tube Feeding Rate: 60 (mls/hr) Current kCals Provided by Tube Feedin,980 Current Protein Provided by Tube Feeding (gPRO): 109 Current Free H2O Provided (m/l): 1,002 Assessment Assessment: Patient with intermittent agitation requiring restraints. He is pulling on lines and tubes. Pt. with +I+Os, +BM. Wts. are inconsistent, monitor. Change tfing to Glucerna 1.5 @ 55 mls/hr. Continue current POC and TFing at current goal rate. Continue to monitor TFing tolerance, labs and skin. Recommendations: 1. Change tfing to Glucerna 1.5 @ 55 mls/hr. 2. Continue current POC and TFing at current goal rate. 3. Continue to monitor TFing tolerance, labs and skin. Dietitian to Monitor: Lab values, Glucose level, Intake & Output, Tube feeding tolerance, Weight change, Wound/skin status, Medical course
[2017-11-15] MEDS: Temazepam 15 MG Capsule PO PRN ×2 (00:44→21:01)
[2017-11-15] MEDS: Oral Hygiene Kit OROPHARYNG SCH ×3 (04:00→15:31)
[2017-11-15] MEDS: Piperacil/Tazo 4.5 GM Premix 4.5 GM/100 ML BAG IV.SIG SCH ×3 (06:04→21:02)
[2017-11-15] MEDS: Insulin NovoLOG Aspart Correctional Sugar Inj SQ SCH ×3 (07:00→12:00)
[2017-11-15] MEDS: Metoprolol Tartrate 50 MG Tablet NG/OG SCH ×2 (08:56→20:52)
[2017-11-15] MEDS: Insulin Detemir Inj 1,000 UNIT/10 ML Vial SQ SCH ×2 (08:57→20:55)
[2017-11-15] MEDS: QUEtiapine 25 MG Tablet NG/OG SCH ×2 (08:57→20:52)
[2017-11-15] MEDS: Chlorhexidine 0.12% Oral Kit 15 ML UDC OROPHARYNG SCH ×2 (08:57→20:52)
[2017-11-15] MEDS: Enoxaparin Inj 40 MG/0.4 ML Syringe SQ SCH (08:57)
--- NOTE | 2017-11-15 11:23 | P.PNIM ---
Subjective Interval history: Per RN, with occasional bloody secretions. No fever, no chills, no change in mental status. Physical Exam Vital signs: Vital Signs 11/14/17 12:00 11/14/17 14:00 11/14/17 16:00 Temperature 98.6 F Pulse Rate 98 H Respiratory Rate 20 16 20 Blood Pressure 168/88 H 120/68 Pulse Oximetry 11/14/17 19:04 11/14/17 19:05 11/14/17 20:00 Temperature 97.6 F Pulse Rate 88 90 Respiratory Rate 18 20 Blood Pressure 107/65 Pulse Oximetry 98 11/14/17 22:29 11/14/17 23:29 11/15/17 00:00 Temperature 97.8 F Pulse Rate 88 Respiratory Rate 24 Blood Pressure 154/90 H Pulse Oximetry 96 97 11/15/17 02:45 11/15/17 04:00 11/15/17 07:00 Temperature 97.6 F Pulse Rate 97 H Respiratory Rate 24 Blood Pressure 138/79 Pulse Oximetry 96 97 11/15/17 08:00 11/15/17 08:07 Temperature 97.5 F L Pulse Rate 99 H 106 H Respiratory Rate 22 16 Blood Pressure 166/92 H Pulse Oximetry 98 Intake & Output 11/14/17 11/15/17 11/15/17 18:59 06:59 18:59 Intake Total 1320 / 1320 1560 / 1560 100 / 100 Output Total 850 / 850 1000 / 1000 Balance 470 / 470 560 / 560 100 / 100 Weight 67.8 kg Intake: IV 100 / 100 200 / 200 100 / 100 Zosyn 4.5 GM Premix 4.5 gm In 100 / 100 200 / 200 100 / 100 100 ml @ 200 mls/hr IV.SIG Q8HR [facility] Rx#:[id number] Oral 0 / 0 0 / 0 Tube Feeding 660 / 660 660 / 660 Water Bolus Amount 500 / 500 500 / 500 Anesthesia Amount 0 / 0 0 / 0 Other 60 / 60 200 / 200 Output: Urine 0 / 0 0 / 0 Stool 0 / 0 0 / 0 Urine/Stool Mix 0 / 0 0 / 0 Urine Amount (Catheter) 750 / 750 1000 / 1000 Indwelling Urethral Catheter 750 / 750 1000 / 1000 Chest Tube Drainage 100 / 100 Left 100 / 100 Other: Other Intake Source Saline Solution Saline Solution Date of Last Bowel Movement 11/14/17 11/14/1718 # Bowel Movements 1 2 # Incontinent Bowel Movements 2 2 Narrative: GENERAL: Elderly male NECK: Trachea midline. Trach site with minimal drainage, bloody at times. CARDIOVASCULAR: Regular rate and rhythm. No JVD LUNGS: Diminished breath sounds at the bases bilaterally GASTROINTESTINAL: Abdomen soft, non-tender, nondistended. PEG in place. No guarding. MUSCULOSKELETAL: Extremities without significant peripheral edema. NEUROLOGICAL: Alert, moves upper extremities against soft restraints. - Urinary Catheter Management Indwelling Urethral Catheter Cath placed during this visit: yes Urethral indwelling: Yes Reason for continuing: Chronic Urinary Retention Insertion date: 08/20/17 Insertion time: 17:00 Results - Labs CBC & Chem 7: 11/13/17 06:48 11/11/17 06:15 Laboratory Results - last 24 hr 11/14/17 11/14/17 11/15/17 12:10 17:42 07:41 POC Glucose 150 H 127 H 173 H Microbiology 11/07/17 13:05 Fluid - Pleural fluid Fungal Smear - Final No fungal elements seen 11/07/17 13:05 Fluid - Pleural fluid Fungal Culture - Preliminary No growth in 1 week 11/07/17 13:05 Fluid - Pleural fluid Acid Fast Bacilli Smear - Final No acid fast bacilli seen 11/07/17 13:05 Fluid - Pleural fluid Mycobacterial Culture - Preliminary No growth in 1 week 10/31/17 10:15 Sputum - Endotracheal Acid Fast Bacilli Smear - Final No acid fast bacilli seen 10/31/17 10:15 Sputum - Endotracheal Mycobacterial Culture - Preliminary No growth in 2 weeks - Procedures 08/23- intubation 09/03- bronchoscopy, lung biopsy, thoracentesis 09/08- tracheostomy 09/11- PEG placement Assessment and Plan - Plan 77-year-old man with a medical history significant for hypertension, gout, diabetes who initially presented with pain in his groin and back. CT angiogram showed bilateral emphysema and pulmonary nodules with compressive atelectasis of right lower lobe. Patient underwent a biopsy which showed chronic inflammation, and reactive fibroblastic tissue. He was also found to have significant spinal stenosis and underwent a laminectomy by neurosurgery. The patient's hospital stay was complicated by septic shock secondary to hospital- acquired pneumonia and C. difficile. Severe cervical spinal stenosis/severe encephalopathy s/p C2 hemicolectomy, C3 through C5 laminoplasty with quadriplegia and acute spinal injury MRI C-spine 09/15: Focal severe spinal canal stenosis at C4-5. And otherwise moderate changes on other levels Head CT 08/23: 2 questionable tiny focal hemorrhages. MRI of brain 08/26 chronic small vessel ischemic and atrophic changes. EEG 09/03 revealed severe encephalopathy. No epileptiform activity Neurosurgery Dr. Victor consulted, Poor chance of neurological recovery for him, no further surgical intervention per son. Neurology Dr. Carvalho. Patient treated with steroids per neurology recommendations, course completed. 11/14/17 discontinue Ativan as this may worsen agitation in this age group. Hypertension, CAD, A. fib Blood pressure remains stable Amiodarone previously stopped due to bradycardia Continue metoprolol and digoxin Acute on chronic respiratory failure secondary to COPD CT pulmonary angiogram revealed multiple masses. 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 Pulmonology has advised against doing a second biopsy given risk. Repeat CT scan recommended in 4 weeks, if mass decrease in size more likely that this is infectious etiology malignancy. Continue trach lavage and suction as needed, continue 35% FiO2 to collar Course of Levaquin completed on 10/21/2017 Appreciate pulmonology following (+) Pseudomonas recent sputum culture but no obvious signs of infection, chest x-ray stable. Monitor. Zosyn per pulmonary. Severe malnutrition Tolerating tube feeds Continue to increase p.o. diet as tolerated Urinary retention Larson in place per urology Type 2 diabetes Accu-Cheks with sliding scale insulin coverage Diabetic diet Sepsis, trach infection, hospital-acquired pneumonia, C. difficile colitis All resolved DVT Prophylaxis Heparin Remove central line. Discharge Planning: Awaiting placement.
[2017-11-15] MEDS ORDERED: Sod Chloride 0.9% Inj 1,000 ML IV.SIG ONE (21:34)
[2017-11-16] MEDS: Insulin NovoLOG Aspart Correctional Sugar Inj SQ SCH ×5 (01:56→18:20)
[2017-11-16] MEDS: Oral Hygiene Kit OROPHARYNG SCH ×5 (02:10→16:41)
[2017-11-16] MEDS: Piperacil/Tazo 4.5 GM Premix 4.5 GM/100 ML BAG IV.SIG SCH ×3 (05:10→20:59)
--- NOTE | 2017-11-16 08:13 | XR ---
EXAM DATE: 11/16/2017 8:01 AM EDT AGE/SEX: 77 years / Male INDICATIONS: Short of breath CLINICAL DATA: This is the patient's subsequent encounter. Patient reports that signs and symptoms h ave been present for 2 weeks and indicates a pain score of Nonresponsive. MEDICAL/SURGICAL HISTORY: . Diabetes. Emphysema. Hypertension. A-fib . . Tracheostomy COMPARISON: [facility] [place], CHEST 1V SINGLE AP, 11/13/2017. . FINDINGS: Tracheostomy tube cardiomegaly again seen. The left central line has been removed. There is left apic al pleural based opacity again seen, and blunting of the left lateral costophrenic angle again noted. There is probable bronchiectasis in the upper lobes and patchy infiltrates again seen. CONCLUSION: Stable appearance of the chest. Electronically signed by: Eduardo Vargas MD 11/16/2017 8:12 AM EDT
--- NOTE | 2017-11-16 08:22 | P.PNIM ---
Subjective Interval history: Mr. Palmer was in respiratory distress this morning; per nursing staff patient was seen by Critical care staff for HR 110bpm. RR 34, BP elevated to SBP ~200, O2 saturations in low 90's. Patient given IV diuresis with Lasix 80mg and labs and CXR ordered. Per patient and nurse at bedside, his breathing is worse than usual and he has been sweating more than previously. No mental status changes from prior encephalopathy Physical Exam Vital signs: Vital Signs 11/15/17 12:00 11/15/17 16:00 11/15/17 18:07 Temperature 97.8 F 97.8 F Pulse Rate 110 H 93 H Respiratory Rate 22 20 Blood Pressure 156/63 H 127/69 Pulse Oximetry 98 11/15/17 19:11 11/15/17 20:00 11/15/17 22:10 Temperature 97.7 F Pulse Rate 95 H 96 H Respiratory Rate 24 18 Blood Pressure 137/83 Pulse Oximetry 98 95 97 11/15/17 23:50 11/16/17 00:00 11/16/17 01:33 Temperature 97.0 F L Pulse Rate 67 Respiratory Rate 20 18 Blood Pressure 89/55 L Pulse Oximetry 98 97 11/16/17 03:40 11/16/17 04:36 11/16/17 07:40 Temperature 98.1 F 98.3 F Pulse Rate 101 H 110 H Respiratory Rate 24 34 H Blood Pressure 157/90 H 188/113 H Pulse Oximetry 94 L 97 92 L Intake & Output 11/15/17 11/16/17 11/16/17 18:59 06:59 18:59 Intake Total 1500 / 1500 3790 / 3790 Output Total 1650 / 1650 Balance -150 / -150 3790 / 3790 Weight 72.4 kg Intake: IV 200 / 200 1200 / 1200 Zosyn 4.5 GM Premix 4.5 gm In 200 / 200 200 / 200 100 ml @ 200 mls/hr IV.SIG Q8HR [facility] Rx#:[id number] NS Inj 1,000 ML @ Wide Open IV. 1000 / 1000 SIG BOLUS ONE Rx#:[id number] Oral 0 / 0 Tube Feeding 550 / 550 548 / 548 Tube Irrigant 150 / 150 240 / 240 Water Bolus Amount 400 / 400 700 / 700 Anesthesia Amount 0 / 0 Other 200 / 200 1102 / 1102 Output: Urine 0 / 0 Stool 0 / 0 Urine/Stool Mix 0 / 0 Estimated Blood Loss 300 / 300 Urine Amount (Catheter) 1250 / 1250 Indwelling Urethral Catheter 1250 / 1250 Chest Tube Drainage 100 / 100 Left 100 / 100 Other: Other Intake Source Saline Solution Date of Last Bowel Movement 11/15/17 11/15/17 # Bowel Movements 0 # Incontinent Bowel Movements 5 Narrative: GENERAL: Elderly male. respiratory distress NECK: Trachea midline. Trach site with minimal drainage, bloody at times. CARDIOVASCULAR: Mild tachycardia; normal perfusion LUNGS: Tachypnea and labored breathing. Bilateral course breath sounds; diminished. GASTROINTESTINAL: Abdomen soft, non-tender, nondistended. PEG in place. No guarding. MUSCULOSKELETAL: Extremities without significant peripheral edema NEUROLOGICAL: Awake. Does not respond verbally to myself or son, appears uncomfortable. Moves upper extremities. - Urinary Catheter Management Indwelling Urethral Catheter Cath placed during this visit: yes Urethral indwelling: Yes Reason for continuing: Hourly intake/output Insertion date: 08/20/17 Insertion time: 17:00 Results - Labs CBC & Chem 7: 11/16/17 08:47 11/16/17 08:47 Laboratory Results - last 24 hr 11/15/17 11/15/17 11/16/17 13:51 20:55 01:22 POC Glucose 82 112 H 124 H 11/16/17 05:17 POC Glucose 147 H - Procedures 08/23- intubation 09/03- bronchoscopy, lung biopsy, thoracentesis 09/08- tracheostomy 09/11- PEG placement Assessment and Plan - Plan 77-year-old man with a medical history significant for hypertension, gout, diabetes who initially presented with pain in his groin and back. CT angiogram showed bilateral emphysema and pulmonary nodules with compressive atelectasis of right lower lobe. Patient underwent a biopsy which showed chronic inflammation, and reactive fibroblastic tissue. He was also found to have significant spinal stenosis and underwent a laminectomy by neurosurgery. The patient's hospital stay was complicated by septic shock secondary to hospital- acquired pneumonia and C. difficile. Patient developed worsening shortness of breath this morning Respiratory Acute on chronic respiratory failure secondary to COPD Impression: CT pulmonary angiogram revealed multiple masses. 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 Second biopsy held due to risk of decompensation. Pulmonology has advised against doing a second biopsy given risk. Repeat CT scan recommended in 4 weeks, if mass decrease in size more likely that this is infectious etiology malignancy. Continue trach lavage and suction as needed, continue 35% FiO2 to collar Pseudomonas- recent sputum culture. No obvious infection. -Course of Levaquin completed on 10/21/2017 Appreciate pulmonology following -Continue IV Zosyn -Continue T bar -trach lavage and suction PRN -Duonebs QID -CPAP HS 11/16- tachypnea, bilateral congestion to auscultation -IV Lasix ordered by Critical care -CBC, BMP, BNP, lactic acid, troponin, EKG ordered -Will await labs and EKG and monitor this morning; anticipate potential need for critical care transfer Severe cervical spinal stenosis/severe encephalopathy s/p C2 hemicolectomy, C3 through C5 laminoplasty with quadriplegia and acute spinal injury MRI C-spine 09/15: Focal severe spinal canal stenosis at C4-5. And otherwise moderate changes on other levels Head CT 08/23: 2 questionable tiny focal hemorrhages. MRI of brain 08/26 chronic small vessel ischemic and atrophic changes. EEG 09/03 revealed severe encephalopathy. No epileptiform activity Neurosurgery Dr. Victor consulted, Poor chance of neurological recovery for him, no further surgical intervention per son. Neurology Dr. Carvalho. Patient treated with steroids per neurology recommendations, course completed. 11/14/17 discontinue Ativan as this may worsen agitation in this age group. -Will consider repeat CT head due to acute HTN in association with prior ischemic changes; difficult to assess for neuro changes due to baseline encephalopathy Hypertension, CAD, A. fib 11/16- hypertensive urgency with SBP ~200 this morning Amiodarone previously stopped due to bradycardia Continue metoprolol and digoxin -Will add PRN Vasotec Severe malnutrition Tolerating tube feeds Continue to increase p.o. diet as tolerated Urinary retention Larson in place per urology -Monitor output on diuresis Type 2 diabetes Accu-Cheks with sliding scale insulin coverage Diabetic diet Sepsis, trach infection, hospital-acquired pneumonia, C. difficile colitis All resolved DVT Prophylaxis Continue Lovenox 40 U daily Code Status: Intubation if needed Discussed Condition With: Patient's son Addendum Patient re-evaluated ~1000: patient feels better and is less anxious. BP improved/ now hypotensive- MAP 60-70. BNP elevated to 700's. troponin elevated to 0.6; improved from ~0.9 earlier in hospitalization RR and pulmonary exam improved with diuresis; RR now in high 20's -Will obtain echo, trend troponins, and consult Cardiology for further evaluation
[2017-11-16] MEDS: Chlorhexidine 0.12% Oral Kit 15 ML UDC OROPHARYNG SCH ×2 (08:26→20:52)
[2017-11-16] MEDS: Metoprolol Tartrate 50 MG Tablet NG/OG SCH ×2 (08:26→20:53)
[2017-11-16] MEDS: QUEtiapine 25 MG Tablet NG/OG SCH ×2 (08:27→20:53)
[2017-11-16 09:24] LABS: Baso % (Auto) 0.2 % (0.0-2.0); Eos # (Auto) 0.8 th/mm3 (0.0-0.4); Eos % (Auto) 4.4 % (0.0-4.0); Hematocrit 37.4 % (39.0-51.0); Hemoglobin 11.4 gm/dL (13.0-17.0); Lymph # (Auto) 3.9 th/mm3 (1.0-4.8); Lymph % (Auto) 20.4 % (9.0-44.0); Mean Corpuscular Hemoglobin 29.6 pg (27.0-34.0); Mean Corpuscular Volume 96.8 fL (80.0-100.0); Mean Platelet Volume 7.5 fL (7.0-11.0); Mono # (Auto) 1.4 th/mm3 (0.0-0.9); Mono % (Auto) 7.2 % (0.0-8.0); Neut # (Auto) 12.9 th/mm3 (1.8-7.7); Neut % (Auto) 67.8 % (16.0-70.0); Platelet Count 317 th/mm3 (150-450); Red Blood Count 3.86 mil/mm3 (4.50-5.90); Red Cell Distribution Width 17.5 % (11.6-17.2)
[2017-11-16 09:26] LABS: Mean Corpuscular HGB Conc 30.6 % (32.0-36.0)
[2017-11-16] MEDS: Insulin Detemir Inj 1,000 UNIT/10 ML Vial SQ SCH ×2 (09:37→20:53)
[2017-11-16] MEDS: Enoxaparin Inj 40 MG/0.4 ML Syringe SQ SCH (09:38)
[2017-11-16 09:47] LABS: Anion Gap 3 meq/L (5-15); Blood Urea Nitrogen 21 mg/dL (7-18); Calcium 8.5 mg/dL (8.5-10.1); Carbon Dioxide 39.7 meq/L (21.0-32.0); Chloride 101 meq/L (98-107); Glomerular Filtration Rate Greater Than 89 mL/min (>89); Glucose,Random 217 mg/dL (74-106); Potassium 3.6 meq/L (3.5-5.1); Sodium 144 meq/L (136-145)
[2017-11-16 10:19] LABS: Eosinophils 5 % (0-4); Lymphocytes 17 % (9-44); Metamyelocytes 1 % (0-1); Monocytes 11 % (0-8); Plasma Cells 1 % (0-0)
[2017-11-16 10:20] LABS: Platelet Estimate Normal (Normal); Platelet Morphology Normal (Normal); Stomatocytes 1+
[2017-11-16 11:01] LABS: ABG Base Excess 13.2 mmol/L (-2-2); ABG PCO2 68 mmHg (38-42); ABG PO2 80 mmHG (61-120)
--- NOTE | 2017-11-16 16:31 | ECG ---
Date Performed: 11/16/2017 Time Performed: 08:57:10 PTAGE: 77 years EKG: SINUS TACHYCARDIA ST DEVIATION AND MODERATE T-WAVE ABNORMALITY, CONSIDER LATERAL ISCHEMIA A BNORMAL ECG Compared to PREVIOUS TRACING , the ST-T changes anterolaterally are new. These changes are nonspecifi c. Clinical correlation recommended. PREVIOUS TRACIN08/23/2017 18.55 DOCTOR: Skip Wong Interpretating Date/Time 11/16/2017 16:30:00
[2017-11-16] MEDS ORDERED: Sodium Chlor 0.9% Inj 500 ML IV.SIG ONE (22:30)
[2017-11-17] MEDS: Oral Hygiene Kit OROPHARYNG SCH ×4 (00:33→16:12)
[2017-11-17] MEDS: Insulin NovoLOG Aspart Correctional Sugar Inj SQ SCH ×4 (00:33→18:00)
--- NOTE | 2017-11-17 01:03 | MB ---
cc: Eusebio Pearson DO DATE: 11/16/2017 REASON FOR CONSULTATION: Sinus tachycardia. HISTORY OF PRESENT ILLNESS: Stewart Palmer is a pleasant 77-year-old male who apparently this morning was in respiratory distress and with this, he had an elevated blood pressure and elevated heart rate. Because of this, I was asked to see him. He originally came in the middle of August and that was for a pulmonary mass with pulmonary infiltrates. Since that time, he has gotten to the point where he is trached, he has been worked up for pulmonary mass, which appears to have decreased in size, so less likely cancerous. During his time here, in review of his fluid levels, he is positive 1000 liters, although this may be somewhat off as I's and O's are not always as strict as we would like, but his weight is definitely up 6 kg since admission. He is currently hemodynamically stable and resting comfortably. He was given IV Lasix and put out 2.9 liters. PAST MEDICAL HISTORY: 1. Hypertension. 2. Gout. 3. Diabetes mellitus. 4. Chronic obstructive pulmonary disease. 5. Questionable pulmonary mass. PAST SURGICAL HISTORY: PEG tube placement. ALLERGIES: NO KNOWN DRUG ALLERGIES. MEDICATIONS: 1. Colchicine 0.6 mg b.i.d. 2. Allopurinol 100 mg daily. 3. Metformin 500 mg daily. SOCIAL HISTORY: Denies alcohol or drug abuse or tobacco abuse. FAMILY HISTORY: Denies premature coronary artery disease or sudden cardiac within the family. PHYSICAL EXAMINATION: VITAL SIGNS: Temperature 98.2, heart rate 105, blood pressure 124/73, respirations 12, pulse oximetry 97% on an FiO2 of 45%. GENERAL: The patient appears relatively relaxed, in no acute distress. HEENT: Extraocular muscles intact. Mucous membranes moist. NECK: Supple. Minimal JVD noted. HEART: Positive first and second heart sounds with tachycardia. LUNGS: Decreased breath sounds bilaterally. ABDOMEN: Soft, nontender, nondistended. EXTREMITIES: Show no clubbing or cyanosis. Femoral and distal pulses intact bilaterally. NEUROLOGIC: He appears to move both upper and lower extremities with some mild weakness noted. SKIN: Warm, dry and intact. OSTEOPATHIC: No kyphoscoliosis, lordosis or paraspinal tender points. LABORATORY DATA: Hemoglobin 11.4, hematocrit 37.4, platelets 317. Potassium 3.6, BUN 21, creatinine 0.58. Troponin 0.64, decreasing to 0.6. Electrocardiogram (11/16/2017 at 1455): Sinus tachycardia, poor R-wave progression and possible old anterior septal myocardial infarction, nonspecific ST-T wave changes. IMPRESSION: 1. Sinus tachycardia. 2. Shortness of breath. 3. Fluid overload state. 4. [id number] respiratory failure secondary to chronic obstructive pulmonary disease. 5. Status post tracheostomy. 6. Encephalopathy. 7. Hypertension. 8. Coronary artery disease. 9. Elevated troponin. RECOMMENDATIONS: 1. Mr. Palmer presented a long time ago with multiple issues throughout his hospital course. During that, it appears that he has probably gotten fluid overloaded. 2. I think that his sinus tachycardia is due to his overall shortness of breath, which is overall due to his fluid overload state. After receiving diuretics, he has done relatively well, pulling out a large amount of urine quickly. 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 3. He does have a mildly elevated troponin, but this appears to be similar to before and is somewhat downtrending. Most likely, this is type 2 in nature due to the overall stress on his body as well as his overall fluid state. With everything going on with him, including his overall frailty and comorbidities, I would not consider him an ischemic revascularization candidate and would continue him on medical management. 4. Further recommendations will be made based on the hospital course. Thank you for allowing me to see Stewart Palmer. If there are any questions, please do not hesitate to call. DO MARY Selby/theodore , 12:03 AM , 12:20 AM
[2017-11-17] MEDS: Piperacil/Tazo 4.5 GM Premix 4.5 GM/100 ML BAG IV.SIG SCH ×3 (05:05→21:49)
[2017-11-17] MEDS: Chlorhexidine 0.12% Oral Kit 15 ML UDC OROPHARYNG SCH ×2 (08:00→20:00)
[2017-11-17 08:29] LABS: Baso # (Auto) 0.1 th/mm3 (0.0-0.2); Baso % (Auto) 0.6 % (0.0-2.0); Eos # (Auto) 0.3 th/mm3 (0.0-0.4); Eos % (Auto) 2.5 % (0.0-4.0); Hematocrit 35.6 % (39.0-51.0); Hemoglobin 11.4 gm/dL (13.0-17.0); Lymph # (Auto) 0.9 th/mm3 (1.0-4.8); Lymph % (Auto) 7.7 % (9.0-44.0); Mean Corpuscular HGB Conc 31.9 % (32.0-36.0); Mean Corpuscular Hemoglobin 30.2 pg (27.0-34.0); Mean Corpuscular Volume 94.6 fL (80.0-100.0); Mono % (Auto) 8.4 % (0.0-8.0); Neut # (Auto) 9.5 th/mm3 (1.8-7.7); Neut % (Auto) 80.8 % (16.0-70.0); Platelet Count 235 th/mm3 (150-450); Red Blood Count 3.76 mil/mm3 (4.50-5.90); Red Cell Distribution Width 17.6 % (11.6-17.2); White Blood Count 11.8 th/mm3 (4.0-11.0)
[2017-11-17 08:50] LABS: Anion Gap 5 meq/L (5-15); Blood Urea Nitrogen 21 mg/dL (7-18); Calcium 8.6 mg/dL (8.5-10.1); Carbon Dioxide 42.9 meq/L (21.0-32.0); Chloride 97 meq/L (98-107); Glomerular Filtration Rate Greater Than 89 mL/min (>89); Glucose,Random 65 mg/dL (74-106); Potassium 3.2 meq/L (3.5-5.1); Sodium 145 meq/L (136-145)
[2017-11-17] MEDS: Insulin Detemir Inj 1,000 UNIT/10 ML Vial SQ SCH ×2 (09:00→21:00)
[2017-11-17] MEDS ORDERED: Metoprolol Tartrate 50 MG Tablet NG/OG SCH (09:42)
[2017-11-17] MEDS: QUEtiapine 25 MG Tablet NG/OG SCH ×2 (09:43→20:38)
[2017-11-17] MEDS: Enoxaparin Inj 40 MG/0.4 ML Syringe SQ SCH (09:43)
[2017-11-17] MEDS ORDERED: Potassium Chloride 20 MEQ Pwd Pkt NG/OG ONE (09:51)
[2017-11-17] MEDS ORDERED: Potassium Chloride 10 MEQ ER Capsule NG/OG ONE (10:15)
--- NOTE | 2017-11-17 10:16 | P.PNIM ---
Subjective Interval history: Mr. Palmer reportedly had episode of hypotension overnight with BP 60/35; patient was given 500ml bolus and has since been normotensive. Other VS- borderline tachycardia overnight (rate 90's-100's); patient with saturations >95 % on BIPAP with FiO2 50%. Total net output 1930ml overnight Interview attempted with online phone animal rehabilitator this morning; patient did not report current complaints. Physical Exam Vital signs: Vital Signs 11/16/17 12:00 11/16/17 14:16 11/16/17 15:51 Temperature 98.2 F 98 F Pulse Rate 105 H 99 H Respiratory Rate 12 Blood Pressure 124/73 94/58 L Pulse Oximetry 97 99 100 11/16/17 17:33 11/16/17 19:00 11/16/17 20:00 Temperature 93.7 F L Pulse Rate 97 H Respiratory Rate 23 Blood Pressure 108/59 L Pulse Oximetry 98 99 99 11/16/17 20:27 11/16/17 21:00 11/16/17 22:30 Temperature Pulse Rate 103 H 101 H Respiratory Rate 19 23 Blood Pressure 60/35 L Pulse Oximetry 99 99 11/17/17 00:00 11/17/17 01:38 11/17/17 04:00 Temperature 98.4 F 98.0 F Pulse Rate 105 H 103 H Respiratory Rate 20 16 Blood Pressure 123/72 121/74 Pulse Oximetry 99 11/17/17 04:22 11/17/17 07:00 11/17/17 07:19 Temperature Pulse Rate 91 H Respiratory Rate 27 H Blood Pressure Pulse Oximetry 99 97 100 11/17/17 08:00 Temperature 98.4 F Pulse Rate 101 H Respiratory Rate 22 Blood Pressure 145/87 H Pulse Oximetry 98 Intake & Output 11/16/17 11/17/17 11/17/17 18:59 06:59 18:59 Intake Total 450 / 450 920 / 920 Output Total 2900 / 2900 400 / 400 Balance -2450 / -2450 520 / 520 Weight 75.4 kg Intake: IV 100 / 100 100 / 100 Zosyn 4.5 GM Premix 4.5 gm In 100 / 100 100 / 100 100 ml @ 200 mls/hr IV.SIG Q8HR COUNT [facility] Rx#:[id number] Tube Feeding 100 / 100 420 / 420 Tube Irrigant 100 / 100 Water Bolus Amount 250 / 250 300 / 300 Output: Stool 100 / 100 0 / 0 Urine Amount (Catheter) 2800 / 2800 400 / 400 Indwelling Urethral Catheter 2800 / 2800 400 / 400 Other: Date of Last Bowel Movement 11/16/17 11/15/17 Narrative: GENERAL: Elderly male. Patient appears comfortable today relative to prior exam NECK: Trachea midline. Tracheostomy CARDIOVASCULAR: Mild tachycardia; normal perfusion LUNGS: Mild tachypnea; breath sounds improved from prior exam and relatively clear with better air movement GASTROINTESTINAL: Abdomen soft, non-tender, nondistended. PEG in place. MUSCULOSKELETAL: Extremities without peripheral edema or calf asymmetry NEUROLOGICAL: Awake, alert. No focal CN defects - Urinary Catheter Management Indwelling Urethral Catheter Cath placed during this visit: yes Urethral indwelling: Yes Reason for continuing: Hourly intake/output Insertion date: 08/20/17 Insertion time: 17:00 Results - Labs CBC & Chem 7: 11/17/17 07:40 11/17/17 07:40 Laboratory Results - last 24 hr 11/16/17 11/16/17 11/16/17 08:47 08:47 08:47 WBC RBC Hgb Hct MCV MCH MCHC RDW Plt Count MPV Prelim Diff (Auto) Neut % (Auto) Lymph % (Auto) [place] % (Auto) Eos % (Auto) Baso % (Auto) Neut # (Auto) Lymph # (Auto) [place] # (Auto) Eos # (Auto) Baso # (Auto) WBC Differential Manual diff final Seg Neuts % (Manual) 60 Band Neuts % (Manual) 5 Lymphocytes % (Manual) 17 Monocytes % (Manual) 11 H Eosinophils % (Manual) 5 H Metamyelocytes % (Man) 1 Plasma Cell % (Manual) 1 H Abs Neuts (Manual) 12.5 H Differential Comment Platelet Estimate Normal Platelet Morphology Normal Stomatocytes 1+ H Puncture Site Patient Temperature O2 Saturation ABG pH ABG pCO2 ABG pO2 ABG HCO3 ABG O2 Content ABG Base Excess ABG Methemoglobin Dave Test Hemoglobin Carboxyhemoglobin O2 Delivery Device Inspired O2 Critical Value Sodium Potassium Chloride Carbon Dioxide Anion Gap BUN Creatinine Estimated GFR POC Glucose Random Glucose Calcium Troponin I 0.64 H* B-Natriuretic Peptide 782 H 11/16/17 11/16/17 11/16/17 10:55 12:56 14:00 WBC RBC Hgb Hct MCV MCH MCHC RDW Plt Count MPV Prelim Diff (Auto) Neut % (Auto) Lymph % (Auto) [place] % (Auto) Eos % (Auto) Baso % (Auto) Neut # (Auto) Lymph # (Auto) [place] # (Auto) Eos # (Auto) Baso # (Auto) WBC Differential Seg Neuts % (Manual) Band Neuts % (Manual) Lymphocytes % (Manual) Monocytes % (Manual) Eosinophils % (Manual) Metamyelocytes % (Man) Plasma Cell % (Manual) Abs Neuts (Manual) Differential Comment Platelet Estimate Platelet Morphology Stomatocytes Puncture Site Right radial Patient Temperature 98.6 O2 Saturation 92 ABG pH 7.38 ABG pCO2 68 H* ABG pO2 80 ABG HCO3 39 H ABG O2 Content 14.2 ABG Base Excess 13.2 H ABG Methemoglobin 1.3 Dave Test Present Hemoglobin 10.9 L Carboxyhemoglobin 2.0 O2 Delivery Device Bipap 15ipap/6epap Inspired O2 45 Critical Value Yes Sodium Potassium Chloride Carbon Dioxide Anion Gap BUN Creatinine Estimated GFR POC Glucose 167 H Random Glucose Calcium Troponin I 0.60 H B-Natriuretic Peptide 11/16/17 11/16/17 11/17/17 17:23 20:21 00:31 WBC RBC Hgb Hct MCV MCH MCHC RDW Plt Count MPV Prelim Diff (Auto) Neut % (Auto) Lymph % (Auto) [place] % (Auto) Eos % (Auto) Baso % (Auto) Neut # (Auto) Lymph # (Auto) [place] # (Auto) Eos # (Auto) Baso # (Auto) WBC Differential Seg Neuts % (Manual) Band Neuts % (Manual) Lymphocytes % (Manual) Monocytes % (Manual) Eosinophils % (Manual) Metamyelocytes % (Man) Plasma Cell % (Manual) Abs Neuts (Manual) Differential Comment Platelet Estimate Platelet Morphology Stomatocytes Puncture Site Patient Temperature O2 Saturation ABG pH ABG pCO2 ABG pO2 ABG HCO3 ABG O2 Content ABG Base Excess ABG Methemoglobin Dave Test Hemoglobin Carboxyhemoglobin O2 Delivery Device Inspired O2 Critical Value Sodium Potassium Chloride Carbon Dioxide Anion Gap BUN Creatinine Estimated GFR POC Glucose 126 H 148 H Random Glucose Calcium Troponin I 0.59 H B-Natriuretic Peptide 11/17/17 11/17/17 11/17/17 04:57 07:40 07:40 WBC 11.8 H RBC 3.76 L Hgb 11.4 L Hct 35.6 L MCV 94.6 MCH 30.2 MCHC 31.9 L RDW 17.6 H Plt Count 235 MPV 8.0 Prelim Diff (Auto) Slide review pending Neut % (Auto) 80.8 H Lymph % (Auto) 7.7 L [place] % (Auto) 8.4 H Eos % (Auto) 2.5 Baso % (Auto) 0.6 Neut # (Auto) 9.5 H Lymph # (Auto) 0.9 L [place] # (Auto) 1.0 H Eos # (Auto) 0.3 Baso # (Auto) 0.1 WBC Differential Seg Neuts % (Manual) Band Neuts % (Manual) Lymphocytes % (Manual) Monocytes % (Manual) Eosinophils % (Manual) Metamyelocytes % (Man) Plasma Cell % (Manual) Abs Neuts (Manual) Differential Comment . Platelet Estimate Platelet Morphology Stomatocytes Puncture Site Patient Temperature O2 Saturation ABG pH ABG pCO2 ABG pO2 ABG HCO3 ABG O2 Content ABG Base Excess ABG Methemoglobin Dave Test Hemoglobin Carboxyhemoglobin O2 Delivery Device Inspired O2 Critical Value Sodium 145 Potassium 3.2 L Chloride 97 L Carbon Dioxide 42.9 H Anion Gap 5 BUN 21 H Creatinine 0.65 Estimated GFR Greater than 89 POC Glucose 202 H Random Glucose 65 L D Calcium 8.6 Troponin I B-Natriuretic Peptide - Procedures 08/23- intubation 09/03- bronchoscopy, lung biopsy, thoracentesis 09/08- tracheostomy 09/11- PEG placement Assessment and Plan - Plan 77-year-old man with a medical history significant for hypertension, gout, diabetes who initially presented with pain in his groin and back. CT angiogram showed bilateral emphysema and pulmonary nodules with compressive atelectasis of right lower lobe. Patient underwent a biopsy which showed chronic inflammation, and reactive fibroblastic tissue. He was also found to have significant spinal stenosis and underwent a laminectomy by neurosurgery. The patient's hospital stay was complicated by septic shock secondary to hospital- acquired pneumonia and C. difficile. Patient developed worsening shortness of breath this morning Respiratory Acute on chronic respiratory failure secondary to COPD Impression: CT pulmonary angiogram revealed multiple masses. 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 Second biopsy held due to risk of decompensation. Pulmonology has advised against doing a second biopsy given risk. Repeat CT scan recommended in 4 weeks, if mass decrease in size more likely that this is infectious etiology malignancy. Pseudomonas- recent sputum culture. No obvious infection. -Course of Levaquin completed on 10/21/201711/16- desaturations in associated with tachypnea which improved with Lasix diuresis ordered by critical care. Patient subsequently had desaturation with secretions; this improved with suctioning 11/17- improved respiratory exam -Appreciate Pulmonology following -IV Zosyn -Continue T bar -trach lavage and suction PRN -Duonebs QID -Continue BIPAP at 50% FiO2 to collar -Will see if PRN Levsin helps secretions Cardiovascular Impression: Recent Tachypnea, low O2 saturations in association with persistent tachycardia, BNP in 700's, and mild troponin elevation to ~0.6. EKG just suggestive of sinus tachycardia. Improvement in respiratory function following Lasix diuresis and output of ~2.9 L urine Intermittent hypotension 11/16 History of Afib; Amiodarone discontinued earlier in hospitalization for Bradycardia -Cardiology evaluated; suspect fluid overload causing BNP elevation and tachycardia. Troponins previously elevated/downtrending; likely type 2. Medical management recommended -Will continue to monitor I/O and give diuresis as needed -Will give Lasix 40mg IV today -Will reduce Metoprolol to 25mg and reassess BP and HR -Continue Digoxin -Daily ASA Severe cervical spinal stenosis/severe encephalopathy s/p C2 hemicolectomy, C3 through C5 laminoplasty with quadriplegia and acute spinal injury MRI C-spine 09/15: Focal severe spinal canal stenosis at C4-5. And otherwise moderate changes on other levels Head CT 08/23: 2 questionable tiny focal hemorrhages. MRI of brain 08/26 chronic small vessel ischemic and atrophic changes. EEG 09/03 revealed severe encephalopathy. No epileptiform activity Neurosurgery Dr. Victor consulted, Poor chance of neurological recovery for him, no further surgical intervention per son. Neurology Dr. Carvalho. Patient treated with steroids per neurology recommendations, course completed. 11/14/17 discontinued Ativan as this may worsen agitation in this age group. Severe malnutrition Tolerating tube feeds Continue to increase p.o. diet as tolerated Urinary retention Larson in place per urology -Monitor output on diuresis Type 2 diabetes Accu-Cheks with sliding scale insulin coverage Diabetic diet Sepsis, trach infection, hospital-acquired pneumonia, C. difficile colitis All resolved Electrolyte Replacement -Will monitor BMP and replete as needed DVT Prophylaxis Continue Lovenox 40 U daily Code Status: No defibrillation
[2017-11-17 11:08] LABS: Eosinophils 7 % (0-4); Lymphocytes 4 % (9-44); Metamyelocytes 2 % (0-1); Monocytes 5 % (0-8); Stomatocytes 1+
[2017-11-17 11:09] LABS: Platelet Estimate Normal (Normal); Platelet Morphology Normal (Normal)
[2017-11-17] MEDS: Metoprolol Tartrate 25 MG Tablet NG/OG SCH ×2 (11:49→20:38)
--- NOTE | 2017-11-17 12:28 | P.PNCA ---
Subjective Interval history: No events overnight Diuresed well yesterday Appears more comfortable Physical Exam Vital signs: Vital Signs 11/16/17 14:16 11/16/17 15:51 11/16/17 17:33 Temperature 98 F Pulse Rate 99 H Respiratory Rate Blood Pressure 94/58 L Pulse Oximetry 99 100 98 11/16/17 19:00 11/16/17 20:00 11/16/17 20:27 Temperature 93.7 F L Pulse Rate 97 H 103 H Respiratory Rate 23 19 Blood Pressure 108/59 L Pulse Oximetry 99 99 99 11/16/17 21:00 11/16/17 22:30 11/17/17 00:00 Temperature 98.4 F Pulse Rate 101 H 105 H Respiratory Rate 23 20 Blood Pressure 60/35 L 123/72 Pulse Oximetry 99 11/17/17 01:38 11/17/17 04:00 11/17/17 04:22 Temperature 98.0 F Pulse Rate 103 H Respiratory Rate 16 Blood Pressure 121/74 Pulse Oximetry 99 99 11/17/17 07:00 11/17/17 07:19 11/17/17 08:00 Temperature 98.4 F Pulse Rate 91 H 101 H Respiratory Rate 27 H 22 Blood Pressure 145/87 H Pulse Oximetry 97 100 98 Intake & Output 11/16/17 11/17/17 11/17/17 18:59 06:59 18:59 Intake Total 450 / 450 920 / 920 500 / 500 Output Total 2900 / 2900 400 / 400 Balance -2450 / -2450 520 / 520 500 / 500 Weight 75.4 kg Intake: IV 100 / 100 100 / 100 500 / 500 Zosyn 4.5 GM Premix 4.5 gm In 100 / 100 100 / 100 100 ml @ 200 mls/hr IV.SIG Q8HR [facility] Rx#:[id number] Tube Feeding 100 / 100 420 / 420 Tube Irrigant 100 / 100 Water Bolus Amount 250 / 250 300 / 300 Output: Stool 100 / 100 0 / 0 Urine Amount (Catheter) 2800 / 2800 400 / 400 Indwelling Urethral Catheter 2800 / 2800 400 / 400 Other: Date of Last Bowel Movement 11/16/17 11/15/17 Narrative: GENERAL: Elderly male. Patient appears comfortable today relative to prior exam NECK: Trachea midline. Tracheostomy CARDIOVASCULAR: Mild tachycardia; normal perfusion LUNGS: Mild tachypnea; breath sounds improved from prior exam and relatively clear with better air movement GASTROINTESTINAL: Abdomen soft, non-tender, nondistended. PEG in place. MUSCULOSKELETAL: Extremities without peripheral edema or calf asymmetry NEUROLOGICAL: Awake, alert. No focal CN defects - Urinary Catheter Management Indwelling Urethral Catheter Cath placed during this visit: yes Urethral indwelling: Yes Reason for continuing: Hourly intake/output Insertion date: 08/20/17 Insertion time: 17:00 Assessment and Plan - Assessment (1) Fluid overload Code(s): E87.70 - Fluid overload, unspecified Status: Acute (2) Elevated troponin Code(s): R74.8 - Abnormal levels of other serum enzymes Status: Acute (3) Respiratory failure Code(s): J96.90 - Respiratory failure, unspecified, unspecified whether with hypoxia or hypercapnia Status: Acute (4) Dyspnea Code(s): R06.00 - Dyspnea, unspecified Status: Acute - Plan 1) Sinus tachycardia Due to underlying illness Most likely due to SOB from fluid overload state 2) SOB/Fluid overload Diuresed well yesterday Would continue to diurese and watch his overall weights/IOs 3) Elevated troponin Type 2 Con't medical management
--- NOTE | 2017-11-17 13:21 | ECG ---
Date Performed: 11/16/2017 Time Performed: 20:09:54 PTAGE: 77 years EKG: SINUS TACHYCARDIA ANTERIOR MYOCARDIAL INFARCTION , OF INDETERMINATE AGE ABNORMAL ECG Latera l ST-T wave changes Compared to PREVIOUS TRACING , there has been some slight variation in the ST-T wave changes, but no other significant serial change. PREVIOUS TRACIN11/16/2017 14.55 DOCTOR: Elaine Al Interpretating Date/Time 11/17/2017 13:20:38
--- NOTE | 2017-11-17 13:21 | ECG ---
Date Performed: 11/16/2017 Time Performed: 14:55:34 PTAGE: 77 years EKG: SINUS TACHYCARDIA WITH FREQUENT SUPRAVENTRICULAR PREMATURE COMPLEXES ANTERIOR MYOCARDIAL IN FARCTION , OF INDETERMINATE AGE Minimal lateral T-wave changes Compared to previous tracing, there bragg s been slight improvement in the ST depression in leads V5 and V6, but otherwise no significant seria l change. ABNORMAL ECG PREVIOUS TRACING : 11/16/2017 08.57 DOCTOR: Elaine Al Interpretating Date/Time 11/17/2017 13:19:50
[2017-11-17] MEDS: Hyoscyamine Liq Drops 0.125 MG/ML 15 ML Bottle SL PRN ×2 (16:21→20:52)
[2017-11-17] MEDS: Metoprolol Tartrate 50 MG Tablet NG/OG SCH (18:27)
[2017-11-18] MEDS: Oral Hygiene Kit OROPHARYNG SCH ×4 (00:21→16:00)
[2017-11-18] MEDS: Insulin NovoLOG Aspart Correctional Sugar Inj SQ SCH ×4 (00:30→19:01)
[2017-11-18] MEDS: Hyoscyamine Liq Drops 0.125 MG/ML 15 ML Bottle SL PRN ×2 (02:00→20:21)
[2017-11-18] MEDS: Piperacil/Tazo 4.5 GM Premix 4.5 GM/100 ML BAG IV.SIG SCH ×3 (05:57→22:34)
[2017-11-18] MEDS: Chlorhexidine 0.12% Oral Kit 15 ML UDC OROPHARYNG SCH ×2 (08:00→20:00)
[2017-11-18] MEDS: Enoxaparin Inj 40 MG/0.4 ML Syringe SQ SCH (09:00)
[2017-11-18] MEDS: Metoprolol Tartrate 25 MG Tablet NG/OG SCH ×2 (09:00→20:22)
[2017-11-18] MEDS: QUEtiapine 25 MG Tablet NG/OG SCH ×2 (09:00→20:22)
--- NOTE | 2017-11-18 10:34 | P.PN ---
Subjective Interval history: 77-year-old male who is seen and examined today for follow-up on respiratory failure, spinal stenosis. Patient resting comfortably on BiPAP. Patient still labile blood pressure with elevations from early afternoon until patient giving morning medications and then he tends to go hypotensive at noon. Blood pressure medication were adjusted yesterday. Still monitoring for improvement. Patient remains afebrile. Physical Exam Vital signs: Vital Signs 11/17/17 10:45 11/17/17 11:00 11/17/17 12:00 Temperature 98.6 F Pulse Rate 119 H 122 H 113 H Respiratory Rate 24 20 22 Blood Pressure 159/77 H 158/96 H 86/59 L Pulse Oximetry 97 97 98 11/17/17 12:30 11/17/17 13:00 11/17/17 14:00 Temperature Pulse Rate 137 H 130 H 115 H Respiratory Rate 24 22 22 Blood Pressure 80/50 L 140/77 113/70 Pulse Oximetry 99 97 97 11/17/17 14:30 11/17/17 15:00 11/17/17 15:15 Temperature Pulse Rate 114 H 90 91 H Respiratory Rate 25 H 20 20 Blood Pressure 128/82 110/65 111/67 Pulse Oximetry 98 99 99 11/17/17 15:30 11/17/17 15:45 11/17/17 16:00 Temperature Pulse Rate 89 86 116 H Respiratory Rate 13 26 H 22 Blood Pressure 118/72 117/69 156/94 H Pulse Oximetry 99 99 97 11/17/17 16:30 11/17/17 19:00 11/17/17 20:00 Temperature 98.1 F Pulse Rate 108 H 90 Respiratory Rate 20 20 Blood Pressure 142/84 H 152/89 H Pulse Oximetry 97 99 98 11/17/17 20:16 11/17/17 21:00 11/18/17 00:00 Temperature 98.0 F Pulse Rate 85 77 Respiratory Rate 22 20 Blood Pressure 101/54 L Pulse Oximetry 97 97 97 11/18/17 04:00 11/18/17 05:56 11/18/17 07:58 Temperature 98.2 F Pulse Rate 115 H 100 H Respiratory Rate 24 24 24 Blood Pressure 183/109 H Pulse Oximetry 99 99 11/18/17 08:00 Temperature 98.0 F Pulse Rate 103 H Respiratory Rate 28 H Blood Pressure 159/94 H Pulse Oximetry 99 Intake & Output 11/17/17 11/18/17 11/18/17 18:59 06:59 18:59 Intake Total 1860 / 1860 1780 / 1780 Output Total 2450 / 2450 700 / 700 Balance -590 / -590 1080 / 1080 Weight 67.7 kg Intake: IV 600 / 600 200 / 200 Zosyn 4.5 GM Premix 4.5 gm In 100 / 100 200 / 200 100 ml @ 200 mls/hr IV.SIG Q8HR [facility] Rx#:[id number] Tube Feeding 660 / 660 660 / 660 Tube Irrigant 120 / 120 Water Bolus Amount 600 / 600 600 / 600 Anesthesia Amount 0 / 0 Other 200 / 200 Output: Urine 0 / 0 Stool 500 / 500 150 / 150 Urine/Stool Mix 0 / 0 Urine Amount (Catheter) 1949 550 / 550 Indwelling Urethral Catheter 1949 550 / 550 Other: Other Intake Source Saline Solution Date of Last Bowel Movement 11/12/17 11/18/17 # Bowel Movements 0 Narrative: GENERAL: Well-developed, cachectic, in no acute distress. Patient is awake, however on BiPAP with tracheostomy unable to determine orientation HEENT: Head is normocephalic without any lesions or masses noted. Facial features are symmetric. Eyes: Extraocular muscles are intact. Conjunctivae were clear. NECK: Supple without any masses. Tracheostomy noted. No JVD, CARDIAC: Regular rhythm, regular rate. S1/S2 are heard. No murmurs gallops or rubs. LUNGS: Clear to auscultation bilaterally. No wheeze, rhonchi or rales. No use of accessory muscles on inspiration or expiration. ABDOMEN: Soft, nontender. Nondistended. Bowel sounds heard in all 4 quadrants. No organomegaly or masses. Negative rebound, negative guarding EXTREMITIES: No edema, pulses are equal bilaterally. No cyanosis or clubbing - Urinary Catheter Management Indwelling Urethral Catheter Cath placed during this visit: yes Urethral indwelling: Yes Reason for continuing: Hourly intake/output Insertion date: 08/20/17 Insertion time: 17:00 Results - Labs CBC & Chem 7: 11/17/17 07:40 11/17/17 07:40 Laboratory Results - last 24 hr 11/17/17 11/17/17 11/17/17 07:40 12:49 18:23 WBC Differential Manual diff final Seg Neuts % (Manual) 76 H Band Neuts % (Manual) 6 Lymphocytes % (Manual) 4 L Monocytes % (Manual) 5 Eosinophils % (Manual) 7 H Metamyelocytes % (Man) 2 H Abs Neuts (Manual) 9.9 H Platelet Estimate Normal Platelet Morphology Normal Stomatocytes 1+ H POC Glucose 181 H 185 H 11/18/17 11/18/17 00:33 06:41 WBC Differential Seg Neuts % (Manual) Band Neuts % (Manual) Lymphocytes % (Manual) Monocytes % (Manual) Eosinophils % (Manual) Metamyelocytes % (Man) Abs Neuts (Manual) Platelet Estimate Platelet Morphology Stomatocytes POC Glucose 154 H 198 H Microbiology 11/16/17 11:03 Blood - Peripheral Aerobic Blood Culture - Preliminary No growth in 1 day 11/16/17 11:03 Blood - Peripheral Anaerobic Blood Culture - Preliminary No growth in 1 day 11/16/17 11:13 Blood - Peripheral Aerobic Blood Culture - Preliminary No growth in 1 day 11/16/17 11:13 Blood - Peripheral Anaerobic Blood Culture - Preliminary No growth in 1 day - Procedures 08/23- intubation 09/03- bronchoscopy, lung biopsy, thoracentesis 09/08- tracheostomy 09/11- PEG placement Assessment and Plan - Plan Acute on chronic hypercapnic respiratory failure secondary to chronic obstructive pulmonary disease -CT pulmonary angiogram revealed multiple masses. 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 Second biopsy held due to risk of decompensation. Pulmonology has advised against doing a second biopsy given risk. -Repeat CT scan was performed and indicated almost complete resolution of previous mass noted -Pulmonology following the patient -Patient continues on BiPAP for respiratory support -Continue pulmonary toilet -Could consider Diamox secondary to the patient with worsening hypercapnia, will defer to instrument and electrical technician Hospital-acquired pneumonia -Pseudomonas, Citrobacter infection with recent sputum culture -Patient currently on Zosyn, will continue for total of 10 days Congestive heart failure with elevated troponin -Patient started on diuresis continued on Lasix 20 mg IV daily, will change to p.o. daily -Patient started on aspirin, continued on lower dose of metoprolol, digoxin, and lisinopril -Cardiology evaluated the patient recommending medical management -Awaiting echocardiogram -Continue monitor input and output History of Afib; -Amiodarone discontinued earlier in hospitalization for Bradycardia -Continue Digoxin Labile blood pressure -Metoprolol decreased down to 25 mg twice daily -Start lisinopril 5 mg daily -Lasix 20 mg daily Severe cervical spinal stenosis/severe encephalopathy -MRI C-spine 09/15: Focal severe spinal canal stenosis at C4-5. And otherwise moderate changes on other levels -s/p C2 hemicolectomy, C3 through C5 laminoplasty with quadriplegia and acute spinal injury -Head CT 08/23: 2 questionable tiny focal hemorrhages. -MRI of brain 08/26 chronic small vessel ischemic and atrophic changes. -EEG 09/03 revealed severe encephalopathy. No epileptiform activity -Neurosurgery Dr. Victor consulted, Poor chance of neurological recovery for him , no further surgical intervention per son. -Neurology Dr. Carvalho. Patient treated with steroids per neurology recommendations, course completed. Severe malnutrition -Patient currently on tube feeding -Dietary following the patient Urinary retention -Larson in place per urology -Monitor output on diuresis Type 2 diabetes -Accu-Cheks with sliding scale insulin coverage -Levemir 5 units twice daily -Patient on Glucerna tube feeding DVT prevention -Cutaneous Lovenox Discharge Planning: Case management for discharge planning
--- NOTE | 2017-11-18 11:00 | ECHRPT ---
Indication: HEART FAILURE CONCLUSIONS Normal left ventricular size. Wall thickness is normal. No regional wall motion abnormalities are present. The mitral valve is not well visualized. Mild thickening of the mitral valve leaflets. Trace mitral valve regurgitation. Mitral annular calcification is present. No mitral valve stenosis. Possible mobile echodensity is noted on the mitral valve subvalvular apparatus. Not easily visualiz ed. This may represent sclerosis vs vegetation. Clinical correlation recommended. Aortic valve sclerosis is present. Diffuse calcification of the aortic valve. No aortic valve regurgitation. No aortic valve stenosis. There is trace tricuspid valve regurgitation. The estimated pulmonary arterial pressure is 47 mmHg. BP: / HR: Rhythm: Sinus MEASUREMENTS (Male / Female) Normal Values Technical Quality:Fair 2D ECHO LVOT Diameter 2.1 cm LV Ejection Fraction MOD 4C 60.9 % LV Ejection Fraction 4C AL 62.4 % M-MODE Aortic Root Diameter MM 2.0 cm AV Cusp Separation MM 0.8 cm DOPPLER AV Peak Velocity 125.0 cm/s AV Peak Gradient 6.3 mmHg LVOT Peak Velocity 93.8 cm/s LVOT Peak Gradient 3.5 mmHg AV Area Cont Eq pk 2.6 cm MV Peak Velocity 134.0 cm/s MV Peak Gradient 7.2 mmHg MV Mean Velocity 81.0 cm/s MV Mean Gradient 3.0 mmHg TR Peak Velocity 304.0 cm/s TR Peak Gradient 37.0 mmHg Right Atrial Pressure 10.0 mmHg Pulmonary Artery Systolic Pressu 47.0 mmHg Right Ventricular Systolic Press 47.0 mmHg FINDINGS LEFT VENTRICLE The left ventricular systolic function is normal with an estimated ejection fraction in the range of 60-65%. Normal left ventricular size. Wall thickness is normal. No regional wall motion abnormalities are present. RIGHT VENTRICLE Normal right ventricular size and systolic function. LEFT ATRIUM The left atrial size is normal. RIGHT ATRIUM The right atrial size is normal. ATRIAL SEPTUM Normal atrial septal thickness without atrial level shunting by limited color doppler interrogation. AORTA The aortic root and proximal ascending aorta are normal in size on limited imaging. MITRAL VALVE The mitral valve is not well visualized. Mild thickening of the mitral valve leaflets. Trace mitral valve regurgitation. Mitral annular calcification is present. No mitral valve stenosis. Possible mobile echodensity is noted on the mitral valve subvalvular apparatus. Not easily visualiz ed. This may represent sclerosis vs vegetation. Clinical correlation recommended. AORTIC VALVE Aortic valve sclerosis is present. Diffuse calcification of the aortic valve. No aortic valve regurgitation. No aortic valve stenosis. TRICUSPID VALVE Structurally normal tricuspid valve. There is trace tricuspid valve regurgitation. The estimated pulmonary arterial pressure is 47 mmHg. PULMONARY VALVE No pulmonary valve regurgitation or stenosis. VESSELS The inferior vena cava is normal in size. PERICARDIUM No pericardial effusion. Jose Carlos Montelongo MD, FACC (Electronically Signed) Final Date:18 November 2017 10:58
--- NOTE | 2017-11-18 14:02 | P.PNPAL ---
Reason for Visit Reason for visit: a. To assist with evaluation and management of symptoms including: dyspnea, pain, b. To assist medical decision maker(s) with: better understanding of current medical conditions; weighing benefits/burdens of medical treatment options; making medical treatment decisions. Subjective Subjective/Interval History: Patient more confused since last visit, does not quite recognize me. Pt's son and note fluctuating mentation at times. Family/Friend Interactions: Annabelle by phone was used as project manager entertainment and media. Long family meeting 45 mins today with Pt's and Son Humble (11/18/2017). We discussed his clinical condition. Reviewed what has improved, which is neurologically. Pt went from essentially quadraplegia in which specialist had said he was not likely to move kaye extremities again, to being able to raise both arms above the shoulders and moving his whole leg and foot bilaterally. Family also pointed out that the lung mass after repeat CT show it shrink and that it was not cancer. Mentation has also improved to the point where there are days he is clearer, but their are days where he does fluctuate. We then discussed what has not improve. He has chronic lung disease, and these past weeks/ month has not progress enough to get passy dereck valve. Family understand he will continue to have complication from his lungs, decompensation, desaturation. Review his heart condition, EF, and fluid overload. review that inspector open die, due to his chronic issues and comorbidities does not recommend heart catherization. They understand the reasoning. Review that echo did show some sclerosis/ vs vegetation in mitral valve. Even if offered they dont think they would have pt undergo LEI. Pt's and Son both realized he will not make it out of the hospital and will be vent dependent. they know he is at risk of decompensate and . Both know one of these decompensation will take his life. Process of hospice again was reviewed with them, as pt had expressed he wanted to go home. Went through possibly we can transport pt home and transition pt to comfort off bipap or supplemental O2. They decline. Son starting November 24 will be out of the country and in [place] for 2 weeks. He understands that pt can decline and while he is out of the country. Both son and ask for the medical team to do all they can short of alternative goal (shock, cpr, acls drugs). They are okay with mechanical ventilation. If pt is unstable, go to icu. Advance Directives Living Will: Never completed Health Care Surrogate: Never completed Durable Power of Shipping Specialist: Never completed Objective Vital Signs: Vital Signs 11/17/17 14:00 11/17/17 14:30 11/17/17 15:00 Temperature Pulse Rate 115 H 114 H 90 Respiratory Rate 22 25 H 20 Blood Pressure 113/70 128/82 110/65 Pulse Oximetry 97 98 99 11/17/17 15:15 11/17/17 15:30 11/17/17 15:45 Temperature Pulse Rate 91 H 89 86 Respiratory Rate 20 13 26 H Blood Pressure 111/67 118/72 117/69 Pulse Oximetry 99 99 99 11/17/17 16:00 11/17/17 16:30 11/17/17 19:00 Temperature Pulse Rate 116 H 108 H Respiratory Rate 22 20 Blood Pressure 156/94 H 142/84 H Pulse Oximetry 97 97 99 11/17/17 20:00 11/17/17 20:16 11/17/17 21:00 Temperature 98.1 F Pulse Rate 90 85 Respiratory Rate 20 22 Blood Pressure 152/89 H Pulse Oximetry 98 97 97 11/18/17 00:00 11/18/17 04:00 11/18/17 05:56 Temperature 98.0 F 98.2 F Pulse Rate 77 115 H Respiratory Rate 20 24 24 Blood Pressure 101/54 L 183/109 H Pulse Oximetry 97 99 11/18/17 07:58 11/18/17 08:00 11/18/17 11:23 Temperature 98.0 F Pulse Rate 100 H 103 H Respiratory Rate 24 28 H Blood Pressure 159/94 H Pulse Oximetry 99 99 97 11/18/17 12:00 Temperature 98.6 F Pulse Rate 115 H Respiratory Rate 22 Blood Pressure 138/78 Pulse Oximetry 98 Intake & Output 11/17/17 11/18/17 11/18/17 18:59 06:59 18:59 Intake Total 1860 / 1860 1780 / 1780 Output Total 2450 / 2450 700 / 700 Balance -590 / -590 1080 / 1080 Weight 67.7 kg Intake: IV 600 / 600 200 / 200 Zosyn 4.5 GM Premix 4.5 gm In 100 / 100 200 / 200 100 ml @ 200 mls/hr IV.SIG Q8HR [facility] Rx#:[id number] Tube Feeding 660 / 660 660 / 660 Tube Irrigant 120 / 120 Water Bolus Amount 600 / 600 600 / 600 Anesthesia Amount 0 / 0 Other 200 / 200 Output: Urine 0 / 0 Stool 500 / 500 150 / 150 Urine/Stool Mix 0 / 0 Urine Amount (Catheter) 1949 550 / 550 Indwelling Urethral Catheter 1949 550 / 550 Other: Other Intake Source Saline Solution Date of Last Bowel Movement 11/12/17 11/18/17 11/12/17 # Bowel Movements 0 Physical Exam: CONSTITUTIONAL/GENERAL: This is an adequately nourished patient , t bar to bipap TUBES/LINES/DRAINS: trach- t piece, ceja, PIV x2 BUE, SKIN: No jaundice, rashes, or lesions. No wounds seen anteriorly. skin warm/ dry EYES: no eye opening. No injection or drainage. Fundi not examined. ENT: Nose without bleeding or purulent drainage. Limited oropharynx exam 2/2 + T piece CARDIOVASCULAR: RRR without murmurs. No JVD. Peripheral pulses symmetric. Trace periph edema to hands. RESPIRATORY/CHEST: unlabored respirations Coarse breath sounds. Diminished sounds bases. GASTROINTESTINAL: Abdomen soft, non-tender, nondistended. No hepato-splenomegaly , or palpable masses. Bowel sounds present. TF infusing peg MUSCULOSKELETAL: Trace +BUE edema. +soft restraints lower ext. No mottling or clubbing. NEUROLOGICAL: Can move all extremeitie on command, lift both arms above head, and move both feet. Confused does not recognize me. PSYCH: still confused, can follow some commands. Can be agitated at times. Diagnostic Tests Laboratory: Laboratory Results - last 72 hr 11/15/17 11/15/17 11/16/17 13:51 20:55 01:22 WBC RBC Hgb Hct MCV MCH MCHC RDW Plt Count MPV Prelim Diff (Auto) Neut % (Auto) Lymph % (Auto) [place] % (Auto) Eos % (Auto) Baso % (Auto) Neut # (Auto) Lymph # (Auto) [place] # (Auto) Eos # (Auto) Baso # (Auto) WBC Differential Seg Neuts % (Manual) Band Neuts % (Manual) Lymphocytes % (Manual) Monocytes % (Manual) Eosinophils % (Manual) Metamyelocytes % (Man) Plasma Cell % (Manual) Abs Neuts (Manual) Differential Comment Platelet Estimate Platelet Morphology Stomatocytes Puncture Site Patient Temperature O2 Saturation ABG pH ABG pCO2 ABG pO2 ABG HCO3 ABG O2 Content ABG Base Excess ABG Methemoglobin Dave Test Hemoglobin Carboxyhemoglobin O2 Delivery Device Inspired O2 Critical Value Sodium Potassium Chloride Carbon Dioxide Anion Gap BUN Creatinine Estimated GFR POC Glucose 82 112 H 124 H Random Glucose Lactic Acid Calcium Troponin I B-Natriuretic Peptide 11/16/17 11/16/17 11/16/17 05:17 08:47 08:47 WBC 19.0 H RBC 3.86 L Hgb 11.4 L Hct 37.4 L MCV 96.8 MCH 29.6 MCHC 30.6 L RDW 17.5 H Plt Count 317 D MPV 7.5 Prelim Diff (Auto) Slide review pending Neut % (Auto) 67.8 Lymph % (Auto) 20.4 [place] % (Auto) 7.2 Eos % (Auto) 4.4 H Baso % (Auto) 0.2 Neut # (Auto) 12.9 H Lymph # (Auto) 3.9 [place] # (Auto) 1.4 H Eos # (Auto) 0.8 H Baso # (Auto) 0.0 WBC Differential Manual diff final Seg Neuts % (Manual) 60 Band Neuts % (Manual) 5 Lymphocytes % (Manual) 17 Monocytes % (Manual) 11 H Eosinophils % (Manual) 5 H Metamyelocytes % (Man) 1 Plasma Cell % (Manual) 1 H Abs Neuts (Manual) 12.5 H Differential Comment . Platelet Estimate Normal Platelet Morphology Normal Stomatocytes 1+ H Puncture Site Patient Temperature O2 Saturation ABG pH ABG pCO2 ABG pO2 ABG HCO3 ABG O2 Content ABG Base Excess ABG Methemoglobin Dave Test Hemoglobin Carboxyhemoglobin O2 Delivery Device Inspired O2 Critical Value Sodium 144 Potassium 3.6 Chloride 101 Carbon Dioxide 39.7 H Anion Gap 3 L BUN 21 H Creatinine 0.58 L Estimated GFR Greater than 89 POC Glucose 147 H Random Glucose 217 H Lactic Acid Calcium 8.5 Troponin I B-Natriuretic Peptide 11/16/17 11/16/17 11/16/17 08:47 08:47 08:47 WBC RBC Hgb Hct MCV MCH MCHC RDW Plt Count MPV Prelim Diff (Auto) Neut % (Auto) Lymph % (Auto) [place] % (Auto) Eos % (Auto) Baso % (Auto) Neut # (Auto) Lymph # (Auto) [place] # (Auto) Eos # (Auto) Baso # (Auto) WBC Differential Seg Neuts % (Manual) Band Neuts % (Manual) Lymphocytes % (Manual) Monocytes % (Manual) Eosinophils % (Manual) Metamyelocytes % (Man) Plasma Cell % (Manual) Abs Neuts (Manual) Differential Comment Platelet Estimate Platelet Morphology Stomatocytes Puncture Site Patient Temperature O2 Saturation ABG pH ABG pCO2 ABG pO2 ABG HCO3 ABG O2 Content ABG Base Excess ABG Methemoglobin Dave Test Hemoglobin Carboxyhemoglobin O2 Delivery Device Inspired O2 Critical Value Sodium Potassium Chloride Carbon Dioxide Anion Gap BUN Creatinine Estimated GFR POC Glucose Random Glucose Lactic Acid 0.9 Calcium Troponin I 0.64 H* B-Natriuretic Peptide 782 H 11/16/17 11/16/17 11/16/17 10:55 12:56 14:00 WBC RBC Hgb Hct MCV MCH MCHC RDW Plt Count MPV Prelim Diff (Auto) Neut % (Auto) Lymph % (Auto) [place] % (Auto) Eos % (Auto) Baso % (Auto) Neut # (Auto) Lymph # (Auto) [place] # (Auto) Eos # (Auto) Baso # (Auto) WBC Differential Seg Neuts % (Manual) Band Neuts % (Manual) Lymphocytes % (Manual) Monocytes % (Manual) Eosinophils % (Manual) Metamyelocytes % (Man) Plasma Cell % (Manual) Abs Neuts (Manual) Differential Comment Platelet Estimate Platelet Morphology Stomatocytes Puncture Site Right radial Patient Temperature 98.6 O2 Saturation 92 ABG pH 7.38 ABG pCO2 68 H* ABG pO2 80 ABG HCO3 39 H ABG O2 Content 14.2 ABG Base Excess 13.2 H ABG Methemoglobin 1.3 Dave Test Present Hemoglobin 10.9 L Carboxyhemoglobin 2.0 O2 Delivery Device Bipap 15ipap/6epap Inspired O2 45 Critical Value Yes Sodium Potassium Chloride Carbon Dioxide Anion Gap BUN Creatinine Estimated GFR POC Glucose 167 H Random Glucose Lactic Acid Calcium Troponin I 0.60 H B-Natriuretic Peptide 11/16/17 11/16/17 11/17/17 17:23 20:21 00:31 WBC RBC Hgb Hct MCV MCH MCHC RDW Plt Count MPV Prelim Diff (Auto) Neut % (Auto) Lymph % (Auto) [place] % (Auto) Eos % (Auto) Baso % (Auto) Neut # (Auto) Lymph # (Auto) [place] # (Auto) Eos # (Auto) Baso # (Auto) WBC Differential Seg Neuts % (Manual) Band Neuts % (Manual) Lymphocytes % (Manual) Monocytes % (Manual) Eosinophils % (Manual) Metamyelocytes % (Man) Plasma Cell % (Manual) Abs Neuts (Manual) Differential Comment Platelet Estimate Platelet Morphology Stomatocytes Puncture Site Patient Temperature O2 Saturation ABG pH ABG pCO2 ABG pO2 ABG HCO3 ABG O2 Content ABG Base Excess ABG Methemoglobin Dave Test Hemoglobin Carboxyhemoglobin O2 Delivery Device Inspired O2 Critical Value Sodium Potassium Chloride Carbon Dioxide Anion Gap BUN Creatinine Estimated GFR POC Glucose 126 H 148 H Random Glucose Lactic Acid Calcium Troponin I 0.59 H B-Natriuretic Peptide 11/17/17 11/17/17 11/17/17 04:57 07:40 07:40 WBC 11.8 H RBC 3.76 L Hgb 11.4 L Hct 35.6 L MCV 94.6 MCH 30.2 MCHC 31.9 L RDW 17.6 H Plt Count 235 MPV 8.0 Prelim Diff (Auto) Slide review pending Neut % (Auto) 80.8 H Lymph % (Auto) 7.7 L [place] % (Auto) 8.4 H Eos % (Auto) 2.5 Baso % (Auto) 0.6 Neut # (Auto) 9.5 H Lymph # (Auto) 0.9 L [place] # (Auto) 1.0 H Eos # (Auto) 0.3 Baso # (Auto) 0.1 WBC Differential Manual diff final Seg Neuts % (Manual) 76 H Band Neuts % (Manual) 6 Lymphocytes % (Manual) 4 L Monocytes % (Manual) 5 Eosinophils % (Manual) 7 H Metamyelocytes % (Man) 2 H Plasma Cell % (Manual) Abs Neuts (Manual) 9.9 H Differential Comment . Platelet Estimate Normal Platelet Morphology Normal Stomatocytes 1+ H Puncture Site Patient Temperature O2 Saturation ABG pH ABG pCO2 ABG pO2 ABG HCO3 ABG O2 Content ABG Base Excess ABG Methemoglobin Dave Test Hemoglobin Carboxyhemoglobin O2 Delivery Device Inspired O2 Critical Value Sodium 145 Potassium 3.2 L Chloride 97 L Carbon Dioxide 42.9 H Anion Gap 5 BUN 21 H Creatinine 0.65 Estimated GFR Greater than 89 POC Glucose 202 H Random Glucose 65 L D Lactic Acid Calcium 8.6 Troponin I B-Natriuretic Peptide 11/17/17 11/17/17 11/18/17 12:49 18:23 00:33 WBC RBC Hgb Hct MCV MCH MCHC RDW Plt Count MPV Prelim Diff (Auto) Neut % (Auto) Lymph % (Auto) [place] % (Auto) Eos % (Auto) Baso % (Auto) Neut # (Auto) Lymph # (Auto) [place] # (Auto) Eos # (Auto) Baso # (Auto) WBC Differential Seg Neuts % (Manual) Band Neuts % (Manual) Lymphocytes % (Manual) Monocytes % (Manual) Eosinophils % (Manual) Metamyelocytes % (Man) Plasma Cell % (Manual) Abs Neuts (Manual) Differential Comment Platelet Estimate Platelet Morphology Stomatocytes Puncture Site Patient Temperature O2 Saturation ABG pH ABG pCO2 ABG pO2 ABG HCO3 ABG O2 Content ABG Base Excess ABG Methemoglobin Dave Test Hemoglobin Carboxyhemoglobin O2 Delivery Device Inspired O2 Critical Value Sodium Potassium Chloride Carbon Dioxide Anion Gap BUN Creatinine Estimated GFR POC Glucose 181 H 185 H 154 H Random Glucose Lactic Acid Calcium Troponin I B-Natriuretic Peptide 11/18/17 11/18/17 06:41 11:57 WBC RBC Hgb Hct MCV MCH MCHC RDW Plt Count MPV Prelim Diff (Auto) Neut % (Auto) Lymph % (Auto) [place] % (Auto) Eos % (Auto) Baso % (Auto) Neut # (Auto) Lymph # (Auto) [place] # (Auto) Eos # (Auto) Baso # (Auto) WBC Differential Seg Neuts % (Manual) Band Neuts % (Manual) Lymphocytes % (Manual) Monocytes % (Manual) Eosinophils % (Manual) Metamyelocytes % (Man) Plasma Cell % (Manual) Abs Neuts (Manual) Differential Comment Platelet Estimate Platelet Morphology Stomatocytes Puncture Site Patient Temperature O2 Saturation ABG pH ABG pCO2 ABG pO2 ABG HCO3 ABG O2 Content ABG Base Excess ABG Methemoglobin Dave Test Hemoglobin Carboxyhemoglobin O2 Delivery Device Inspired O2 Critical Value Sodium Potassium Chloride Carbon Dioxide Anion Gap BUN Creatinine Estimated GFR POC Glucose 198 H 133 H Random Glucose Lactic Acid Calcium Troponin I B-Natriuretic Peptide Result Diagrams: 11/17/17 07:40 11/17/17 07:40 Microbiology: Microbiology 11/16/17 11:03 Aerobic Blood Culture - Preliminary Blood - Peripheral No growth in 2 days Anaerobic Blood Culture - Preliminary No growth in 2 days 11/16/17 11:13 Aerobic Blood Culture - Preliminary Blood - Peripheral No growth in 2 days Anaerobic Blood Culture - Preliminary No growth in 2 days Assessment and Plan - Disease Oriented Problem List (1) Respiratory failure Comment: revealed 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 Right middle lobe 2.7 x 2.2 x 7's. Spiculated. Left lingula is 3.4 x 3.20 cm. COPD (2) SVT (supraventricular tachycardia) (3) Lung mass Comment: revealed 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 Right middle lobe 2.7 x 2.2 x 7's. Spiculated. Left lingula is 3.4 x 3.20 cm. 1st biopsy did not show malignancy. 2nd biopsy on hold to risk of decompensation. Pulmonlogy advise against 2nd biopsy given risk. Recommends repeat CT in 4 weeks. If mass decrease in size, more possiblility its infections rather than malignancy. (4) Diabetes (5) Gout (6) Spinal stenosis Pertinent Non-Medical Issues: Psychosocial: Retired. He was living at home with his Tommie Gutierrez and his son "Cristina Palmer. . Speaks Mandarin. Spiritual: unk at this time Legal: Per [place] statutes legal decision maker proxy is pt's . She defers to son Humble in major decisions, but does participate in medical decision and family meetings. Family works together Ethical issues impacting care: no issues identified Important Contacts: Spencer Reilly [phone] Son "Cristina Palmer [phone] Prognosis: 77 yo underlying diastolic heart failure, severe spinal stenosis (s/p surgery) , lung disease and DM. Lung mass/nodule from recent CT(10/30) has decrease in size, so unlikely malignancy, despite no 2nd biopsy. Pt has made more progress neurologically, can move both arms above head on commands, and can move both feet on command. He is also getting less confused. Code Status: Alternative Code Plan: CODE STATUS - Alternate code. Yes to intubation and mechanical ventilation. no to cpr/ shock/ acls drugs. Capacity- he does not appears to be able to weigh the risk and benefits of decision on my visit. Alertness has improved. At times agitated and still fluctuates between drowsiness and alert ness. LEGAL DECISION MAKER - per [place] statutes is proxy , who defers decisions to son, Humble, family all working together. GOALS OF CARE Family meetings- multiple family meetings. They have also met with hospice before (Humble(son_ and pt's together, while I was in the room). At times I have met with alone, at times with Humble (son). [employer] had been use for family meetings. They have decline hospice. [employer] by phone was used as project manager entertainment and media. Long family meeting 45 mins today with Pt's and Son Humble (11/18/2017). We discussed his clinical condition. Reviewed what has improved, which is neurologically. Pt went from essentially quadraplegia in which specialist had said he was not likely to move his extremities again; to being able to raise both arms above the shoulders and moving his whole leg and foot bilaterally. Family also pointed out that the lung mass after repeat CT show it shrink and that it was not cancer. Mentation has also improved to the point where there are days he is clearer, but their are days where he does fluctuate. We then discussed what has not improve. He has chronic lung disease, and these past weeks/ month has not progress enough to get passy dereck valve. Family understand he will continue to have complication from his lungs, decompensation, desaturation. Review his heart condition, EF, and fluid overload. review that inspector open die, due to his chronic issues and comorbidities does not recommend heart catherization. They understand the reasoning. Review that echo did show some sclerosis/ vs vegetation in mitral valve. Even if offered they dont think they would have pt undergo LEI. Diagrams were were drawn Pt's and Son both realized he will not make it out of the hospital and will be vent dependent. they know he is at risk of decompensate and . Both know one of these decompensation will take his life. Process of hospice again was reviewed with them, as pt had expressed he wanted to go home. Went through possibly we can transport pt home and transition pt to comfort off bipap or supplemental O2. They decline hospice at this time. Son starting November 24 will be out of the country and in [place] for 2 weeks. He understands that pt can decline and while he is out of the country. Both son and ask for the medical team to do all they can, short of alternative goal (shock, cpr, acls drugs). They are okay with mechanical ventilation. If pt is unstable, go to icu. SYMPTOMS * shortness of breath -. Questionable malignancy, hx remote TB. O. Status post tracheostomy. risk of decompensation. Family amenable to transferring back to icu, if respiratory status clinically worsen. * pain - ?cause? presented with right side and thoracic pain. imaging showing lung nodules. buttock wound. BX benign, ?repeat. appears comfortable, no signs of pain on exam. Palliative care will continue to follow during hospital course as condition evolves to assist patient/decision maker with understanding of medical conditions, benefits/burdens of treatment options, clarification of goals of treatment, and will assist with symptoms of palliative concern. Attestation Attestation: To help prompt me to consider important information that might be impacting today's encounter and assessment, information from prior notes written by myself or my colleagues may have been "brought forward" into today's note. My signature on this note, however, is an attestation that I personally performed the exam, history, and/or decision-making noted today, and, unless otherwise indicated, the interactions with patient, family, and staff as well as the review of records all occurred today. I also attest that the listed assessment and stated plan reflect my best clinical judgment today based on the combination of historical information, prior notes, and today's exam/ interactions. When time spent is documented, it refers only to time spent today by the signer, or if indicated, combined time spent today by collaborating physician/nurse practitioner.
[2017-11-18] MEDS: Lisinopril 5 MG Tablet PO SCH (16:00)
[2017-11-18] MEDS: Insulin Detemir Inj 1,000 UNIT/10 ML Vial SQ SCH ×2 (16:44→21:30)
[2017-11-18] MEDS: Temazepam 15 MG Capsule PO PRN (23:15)
[2017-11-19] MEDS: Hyoscyamine Liq Drops 0.125 MG/ML 15 ML Bottle SL PRN ×3 (03:30→13:45)
[2017-11-19] MEDS: Oral Hygiene Kit OROPHARYNG SCH ×4 (04:00→17:11)
[2017-11-19] MEDS: Insulin NovoLOG Aspart Correctional Sugar Inj SQ SCH ×4 (05:50→17:11)
[2017-11-19] MEDS: Piperacil/Tazo 4.5 GM Premix 4.5 GM/100 ML BAG IV.SIG SCH ×3 (06:13→22:54)
[2017-11-19] MEDS: Enoxaparin Inj 40 MG/0.4 ML Syringe SQ SCH (08:39)
[2017-11-19] MEDS: Lisinopril 5 MG Tablet PO SCH (08:40)
[2017-11-19] MEDS: QUEtiapine 25 MG Tablet NG/OG SCH ×2 (08:40→22:52)
[2017-11-19] MEDS: Furosemide 20 MG Tablet PO SCH (08:40)
[2017-11-19] MEDS: Chlorhexidine 0.12% Oral Kit 15 ML UDC OROPHARYNG SCH ×2 (08:41→22:09)
[2017-11-19] MEDS: Insulin Detemir Inj 1,000 UNIT/10 ML Vial SQ SCH ×2 (08:41→22:08)
[2017-11-19] MEDS: Metoprolol Tartrate 25 MG Tablet NG/OG SCH ×2 (08:41→22:07)
[2017-11-19 10:43] LABS: Baso % (Auto) 0.4 % (0.0-2.0); Eos # (Auto) 0.2 th/mm3 (0.0-0.4); Eos % (Auto) 1.3 % (0.0-4.0); Hematocrit 32.9 % (39.0-51.0); Hemoglobin 10.6 gm/dL (13.0-17.0); Lymph % (Auto) 8.3 % (9.0-44.0); Mean Corpuscular HGB Conc 32.2 % (32.0-36.0); Mean Corpuscular Hemoglobin 30.3 pg (27.0-34.0); Mean Corpuscular Volume 94.1 fL (80.0-100.0); Mean Platelet Volume 7.6 fL (7.0-11.0); Mono # (Auto) 0.9 th/mm3 (0.0-0.9); Mono % (Auto) 7.2 % (0.0-8.0); Neut # (Auto) 10.2 th/mm3 (1.8-7.7); Neut % (Auto) 82.8 % (16.0-70.0); Platelet Count 218 th/mm3 (150-450); Red Blood Count 3.49 mil/mm3 (4.50-5.90); Red Cell Distribution Width 18.3 % (11.6-17.2); White Blood Count 12.3 th/mm3 (4.0-11.0)
[2017-11-19 11:13] LABS: Anion Gap 9 meq/L (5-15); Blood Urea Nitrogen 21 mg/dL (7-18); Calcium 8.9 mg/dL (8.5-10.1); Carbon Dioxide 37.4 meq/L (21.0-32.0); Chloride 99 meq/L (98-107); Glomerular Filtration Rate Greater Than 89 mL/min (>89); Glucose,Random 132 mg/dL (74-106); Potassium 3.4 meq/L (3.5-5.1); Sodium 145 meq/L (136-145)
--- NOTE | 2017-11-19 11:34 | P.PN ---
Subjective Interval history: Follow-up respiratory failure and spinal stenosis. Stable on BiPAP. Still having loose stools. Discussed with nursing Physical Exam Vital signs: Vital Signs 11/18/17 12:00 11/18/17 15:30 11/18/17 15:31 Temperature 98.6 F Pulse Rate 115 H 130 H Respiratory Rate 22 32 H Blood Pressure 138/78 183/108 H Pulse Oximetry 98 98 87 L 11/18/17 15:32 11/18/17 15:48 11/18/17 16:00 Temperature 99.0 F Pulse Rate 115 H 100 H Respiratory Rate 24 28 H Blood Pressure 205/118 H 136/86 Pulse Oximetry 97 95 11/18/17 19:46 11/18/17 19:50 11/18/17 20:00 Temperature 97.9 F Pulse Rate 101 H 103 H Respiratory Rate 29 H 24 Blood Pressure 131/84 Pulse Oximetry 94 L 94 L 95 11/18/17 23:39 11/19/17 00:00 11/19/17 01:56 Temperature 97.7 F Pulse Rate 109 H 115 H Respiratory Rate 24 30 H Blood Pressure 117/73 Pulse Oximetry 96 98 100 11/19/17 03:18 11/19/17 04:00 11/19/17 04:08 Temperature 97.8 F Pulse Rate 111 H Respiratory Rate 24 24 Blood Pressure 150/72 H Pulse Oximetry 95 94 L 11/19/17 07:00 11/19/17 08:00 11/19/17 08:55 Temperature 98.1 F Pulse Rate 108 H 116 H Respiratory Rate 21 36 H Blood Pressure 136/76 Pulse Oximetry 98 98 94 L Intake & Output 11/18/17 11/19/17 11/19/17 18:59 06:59 18:59 Intake Total 1460 / 1460 1700 / 1700 100 / 100 Output Total 2100 / 2100 1025 / 1025 Balance -640 / -640 675 / 675 100 / 100 Weight 67.8 kg Intake: IV 200 / 200 100 / 100 Zosyn 4.5 GM Premix 4.5 gm In 200 / 200 100 / 100 100 ml @ 200 mls/hr IV.SIG Q8HR [facility] Rx#:[id number] Oral 0 / 0 Tube Feeding 660 / 660 550 / 550 Tube Irrigant 150 / 150 Water Bolus Amount 600 / 600 600 / 600 Anesthesia Amount 0 / 0 Other 200 / 200 200 / 200 Output: Urine 0 / 0 Stool 300 / 300 200 / 200 Urine/Stool Mix 0 / 0 Urine Amount (Catheter) 1800 / 1800 825 / 825 Indwelling Urethral Catheter 1799 825 / 825 Other: Other Intake Source Saline Solution Saline Solution Date of Last Bowel Movement 11/18/17 11/19/17 11/19/17 # Bowel Movements 0 Narrative: GENERAL: Well-developed, cachectic, in no acute distress. Patient is awake, however on BiPAP with tracheostomy unable to determine orientation HEENT: Head is normocephalic without any lesions or masses noted. Facial features are symmetric. Eyes: Extraocular muscles are intact. Conjunctivae were clear. NECK: Supple without any masses. Tracheostomy noted. No JVD, CARDIAC: Regular rhythm, regular rate. S1/S2 are heard. No murmurs gallops or rubs. LUNGS: Clear to auscultation bilaterally. No wheeze, rhonchi or rales. No use of accessory muscles on inspiration or expiration. ABDOMEN: Soft, nontender. Nondistended. Bowel sounds heard in all 4 quadrants. Negative rebound, negative guarding EXTREMITIES: No edema, pulses are equal bilaterally. No cyanosis or clubbing - Urinary Catheter Management Indwelling Urethral Catheter Cath placed during this visit: yes Urethral indwelling: Yes Reason for continuing: Hourly intake/output Insertion date: 08/20/17 Insertion time: 17:00 Results - Labs CBC & Chem 7: 11/19/17 09:37 11/19/17 09:37 Laboratory Results - last 24 hr 11/18/17 11/18/17 11/19/17 11:57 18:57 00:29 WBC RBC Hgb Hct MCV MCH MCHC RDW Plt Count MPV Neut % (Auto) Lymph % (Auto) [place] % (Auto) Eos % (Auto) Baso % (Auto) Neut # (Auto) Lymph # (Auto) [place] # (Auto) Eos # (Auto) Baso # (Auto) WBC Differential Differential Comment Sodium Potassium Chloride Carbon Dioxide Anion Gap BUN Creatinine Estimated GFR POC Glucose 133 H 157 H 131 H Random Glucose Calcium 11/19/17 11/19/17 11/19/17 05:40 08:39 09:37 WBC RBC Hgb Hct MCV MCH MCHC RDW Plt Count MPV Neut % (Auto) Lymph % (Auto) [place] % (Auto) Eos % (Auto) Baso % (Auto) Neut # (Auto) Lymph # (Auto) [place] # (Auto) Eos # (Auto) Baso # (Auto) WBC Differential Differential Comment Sodium 145 Potassium 3.4 L Chloride 99 Carbon Dioxide 37.4 H Anion Gap 9 BUN 21 H Creatinine 0.55 L Estimated GFR Greater than 89 POC Glucose 126 H 156 H Random Glucose 132 H Calcium 8.9 11/19/17 09:37 WBC 12.3 H RBC 3.49 L Hgb 10.6 L Hct 32.9 L MCV 94.1 MCH 30.3 MCHC 32.2 RDW 18.3 H Plt Count 218 MPV 7.6 Neut % (Auto) 82.8 H Lymph % (Auto) 8.3 L [place] % (Auto) 7.2 Eos % (Auto) 1.3 Baso % (Auto) 0.4 Neut # (Auto) 10.2 H Lymph # (Auto) 1.0 [place] # (Auto) 0.9 Eos # (Auto) 0.2 Baso # (Auto) 0.0 WBC Differential . Differential Comment Auto diff final Sodium Potassium Chloride Carbon Dioxide Anion Gap BUN Creatinine Estimated GFR POC Glucose Random Glucose Calcium Microbiology 11/16/17 11:03 Blood - Peripheral Aerobic Blood Culture - Preliminary No growth in 3 days 11/16/17 11:03 Blood - Peripheral Anaerobic Blood Culture - Preliminary No growth in 3 days 11/16/17 11:13 Blood - Peripheral Aerobic Blood Culture - Preliminary No growth in 3 days 11/16/17 11:13 Blood - Peripheral Anaerobic Blood Culture - Preliminary No growth in 3 days - Imaging ITS Impressions Cervical Spine X-Ray 09/19/17 00:00 CONCLUSION: Surgical hardware noted posteriorly at the C3-C5 levels. Cervical Spine MRI 09/25/17 00:00 CONCLUSION: 1. Status post laminectomy at the C3-C5 levels. Surgical hardware seen at the posterior elements at these levels. 2. Moderate stenosis at the C4-C5 level secondary to disc bulge and central disc protrusion. There is abnormal signal again seen within the cord. The cord appears small this region. This likely secondary to myelomalacia. 3. Mild to moderate narrowing of the thecal sac at the C5-C6 and C6-C7 level. 4. Neural foraminal narrowing throughout the cervical spine as described above. Abdomen X-Ray 10/12/17 00:00 CONCLUSION: Nonspecific bowel gas pattern as above without significant distention Minimal consolidative changes right base with trace pleural effusion. Chest CT 11/07/17 11:33 CONCLUSION: 1. Chronic emphysematous change. There is also increased interstitial markings throughout the lungs which are likely chronic. 2. Suspected atelectasis in the left lower lobe and the right upper lobe. 3. Bilateral pleural effusions being moderate on the left and mild on the right. 4. Evidence of prior granulomatous exposure. Chest X-Ray 11/16/17 00:00 CONCLUSION: Stable appearance of the chest. - Procedures 08/23- intubation 09/03- bronchoscopy, lung biopsy, thoracentesis 09/08- tracheostomy 09/11- PEG placement s/p C2 hemicolectomy, C3 through C5 laminoplasty Assessment and Plan - Plan Acute on chronic hypercapnic respiratory failure secondary to chronic obstructive pulmonary disease -CT pulmonary angiogram revealed multiple masses. 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 Second biopsy held due to risk of decompensation. Pulmonology has advised against doing a second biopsy given risk. -Repeat CT scan was performed and indicated almost complete resolution of previous mass noted -Pulmonology following the patient -Patient continues on BiPAP for respiratory support -Continue pulmonary toilet -Could consider Diamox secondary to the patient with worsening hypercapnia, will defer to manager merchandise Hospital-acquired pneumonia -Pseudomonas, Citrobacter infection with recent sputum culture -Patient currently on Zosyn, will continue for total of 10 days DC date November 22 Congestive heart failure with elevated troponin -Patient started on diuresis continued on Lasix 20 mg IV daily, will change to p.o. daily -Patient started on aspirin, continued on lower dose of metoprolol, digoxin, and lisinopril -Cardiology evaluated the patient recommending medical management -Awaiting echocardiogram -Continue monitor input and output History of Afib; -Amiodarone discontinued earlier in hospitalization for Bradycardia -Continue Digoxin Labile blood pressure -Metoprolol decreased down to 25 mg twice daily -lisinopril 5 mg daily -Lasix 20 mg daily Severe cervical spinal stenosis/severe encephalopathy -MRI C-spine 09/15: Focal severe spinal canal stenosis at C4-5. And otherwise moderate changes on other levels -s/p C2 hemicolectomy, C3 through C5 laminoplasty with quadriplegia and acute spinal injury -Head CT 08/23: 2 questionable tiny focal hemorrhages. -MRI of brain 08/26 chronic small vessel ischemic and atrophic changes. -EEG 09/03 revealed severe encephalopathy. No epileptiform activity -Neurosurgery Dr. Victor consulted, Poor chance of neurological recovery for him , no further surgical intervention per son. -Neurology Dr. Carvalho. Patient treated with steroids per neurology recommendations, course completed. Severe malnutrition -Patient currently on tube feeding -Dietary following the patient Urinary retention -L[place] in place per urology -Monitor output on diuresis Type 2 diabetes -Accu-Cheks with sliding scale insulin coverage -Levemir 5 units twice daily -Patient on Glucerna tube feeding Diarrhea history of C. difficile. Repeat C. difficile and start Lactinex DVT prevention -subCutaneous Lovenox Discharge Planning: Case management for discharge planning
[2017-11-19] MEDS ORDERED: Potassium Chloride 25 MEQ Effervescent Tablet G-TUBE ONE ×2 (11:37→13:00)
[2017-11-19] MEDS: Lactobacillus Acidophilus/L. Spores Tablet G-TUBE SCH ×2 (13:38→17:11)
--- NOTE | 2017-11-19 16:58 | P.PNPAL ---
Reason for Visit Reason for visit: a. To assist with evaluation and management of symptoms including: dyspnea, pain, b. To assist medical decision maker(s) with: better understanding of current medical conditions; weighing benefits/burdens of medical treatment options; making medical treatment decisions. Subjective Subjective/Interval History: Pt mentation about the same, could follow commands, at times confused. endorse bouts of discomfort of dyspnea at times with agitation. At times comfortable. Family/Friend Interactions: Had another family meeting with , and then with son on the telephone. == son has change his mind on going to vacation to [place]. == He ask me again if I feel patient will not survive if in the hospital while he is gone. I told him he is always at risk of decompensation and decline. == Family has reconsider hospice care, but ask if we can wait for family to arrive 11/29, pt's son and daughter. == I reviewed extensively hospice and comfort measures, withdrawing care in the care center vs at home (which may have logistic issues). == His preference is to bring him home. == For now continue with all care short of alternative code(no compression/ shock/ acls drugs) okay with mechanical ventilation until family could arrive. Then they are amenable to meet with hospice. == Pt's son has decided to cancel trip. Advance Directives Living Will: Never completed Health Care Surrogate: Never completed Durable Power of Financial Aid Counselor: Never completed Objective Vital Signs: Vital Signs 11/18/17 19:46 11/18/17 19:50 11/18/17 20:00 Temperature 97.9 F Pulse Rate 101 H 103 H Respiratory Rate 29 H 24 Blood Pressure 131/84 Pulse Oximetry 94 L 94 L 95 11/18/17 23:39 11/19/17 00:00 11/19/17 01:56 Temperature 97.7 F Pulse Rate 109 H 115 H Respiratory Rate 24 30 H Blood Pressure 117/73 Pulse Oximetry 96 98 100 11/19/17 03:18 11/19/17 04:00 11/19/17 04:08 Temperature 97.8 F Pulse Rate 111 H Respiratory Rate 24 24 Blood Pressure 150/72 H Pulse Oximetry 95 94 L 11/19/17 07:00 11/19/17 08:00 11/19/17 08:55 Temperature 98.1 F Pulse Rate 108 H 116 H Respiratory Rate 21 36 H Blood Pressure 136/76 Pulse Oximetry 98 98 94 L 11/19/17 12:00 11/19/17 16:00 Temperature 97.9 F 97.7 F Pulse Rate 103 H 100 H Respiratory Rate 21 21 Blood Pressure 109/66 116/62 Pulse Oximetry 98 97 Intake & Output 11/18/17 11/19/17 11/19/17 18:59 06:59 18:59 Intake Total 1460 / 1460 1700 / 1700 200 / 200 Output Total 2100 / 2100 1025 / 1025 Balance -640 / -640 675 / 675 200 / 200 Weight 67.8 kg Intake: IV 200 / 200 200 / 200 Zosyn 4.5 GM Premix 4.5 gm In 200 / 200 200 / 200 100 ml @ 200 mls/hr IV.SIG Q8HR [facility] Rx#:[id number] Oral 0 / 0 Tube Feeding 660 / 660 550 / 550 Tube Irrigant 150 / 150 Water Bolus Amount 600 / 600 600 / 600 Anesthesia Amount 0 / 0 Other 200 / 200 200 / 200 Output: Urine 0 / 0 Stool 300 / 300 200 / 200 Urine/Stool Mix 0 / 0 Urine Amount (Catheter) 1800 / 1800 825 / 825 Indwelling Urethral Catheter 1800 / 1800 825 / 825 Other: Other Intake Source Saline Solution Saline Solution Date of Last Bowel Movement 11/18/17 11/19/17 11/19/17 # Bowel Movements 0 Physical Exam: CONSTITUTIONAL/GENERAL: This is an adequately nourished patient , t bar to bipap TUBES/LINES/DRAINS: trach- t piece, ceja, PIV x2 BUE, SKIN: No jaundice, rashes, or lesions. No wounds seen anteriorly. skin warm/ dry EYES: no eye opening. No injection or drainage. Fundi not examined. ENT: Nose without bleeding or purulent drainage. Limited oropharynx exam 2/2 + T piece CARDIOVASCULAR: RRR without murmurs. No JVD. Peripheral pulses symmetric. Trace periph edema to hands. RESPIRATORY/CHEST: unlabored respirations Coarse breath sounds. Diminished sounds bases. GASTROINTESTINAL: Abdomen soft, non-tender, nondistended. No hepato-splenomegaly , or palpable masses. Bowel sounds present. TF infusing peg MUSCULOSKELETAL: Trace +BUE edema. +soft restraints lower ext. No mottling or clubbing. NEUROLOGICAL: Can move all extremeitie on command, lift both arms above head, and move both feet. Confused does not recognize me. PSYCH: still confused, can follow some commands. Can be agitated at times. Diagnostic Tests Laboratory: Laboratory Results - last 72 hr 11/16/17 11/16/17 11/17/17 17:23 20:21 00:31 WBC RBC Hgb Hct MCV MCH MCHC RDW Plt Count MPV Prelim Diff (Auto) Neut % (Auto) Lymph % (Auto) [place] % (Auto) Eos % (Auto) Baso % (Auto) Neut # (Auto) Lymph # (Auto) [place] # (Auto) Eos # (Auto) Baso # (Auto) WBC Differential Seg Neuts % (Manual) Band Neuts % (Manual) Lymphocytes % (Manual) Monocytes % (Manual) Eosinophils % (Manual) Metamyelocytes % (Man) Abs Neuts (Manual) Differential Comment Platelet Estimate Platelet Morphology Stomatocytes Sodium Potassium Chloride Carbon Dioxide Anion Gap BUN Creatinine Estimated GFR POC Glucose 126 H 148 H Random Glucose Calcium Magnesium Troponin I 0.59 H 11/17/17 11/17/17 11/17/17 04:57 07:40 07:40 WBC 11.8 H RBC 3.76 L Hgb 11.4 L Hct 35.6 L MCV 94.6 MCH 30.2 MCHC 31.9 L RDW 17.6 H Plt Count 235 MPV 8.0 Prelim Diff (Auto) Slide review pending Neut % (Auto) 80.8 H Lymph % (Auto) 7.7 L [place] % (Auto) 8.4 H Eos % (Auto) 2.5 Baso % (Auto) 0.6 Neut # (Auto) 9.5 H Lymph # (Auto) 0.9 L [place] # (Auto) 1.0 H Eos # (Auto) 0.3 Baso # (Auto) 0.1 WBC Differential Manual diff final Seg Neuts % (Manual) 76 H Band Neuts % (Manual) 6 Lymphocytes % (Manual) 4 L Monocytes % (Manual) 5 Eosinophils % (Manual) 7 H Metamyelocytes % (Man) 2 H Abs Neuts (Manual) 9.9 H Differential Comment . Platelet Estimate Normal Platelet Morphology Normal Stomatocytes 1+ H Sodium 145 Potassium 3.2 L Chloride 97 L Carbon Dioxide 42.9 H Anion Gap 5 BUN 21 H Creatinine 0.65 Estimated GFR Greater than 89 POC Glucose 202 H Random Glucose 65 L D Calcium 8.6 Magnesium Troponin I 11/17/17 11/17/17 11/18/17 12:49 18:23 00:33 WBC RBC Hgb Hct MCV MCH MCHC RDW Plt Count MPV Prelim Diff (Auto) Neut % (Auto) Lymph % (Auto) [place] % (Auto) Eos % (Auto) Baso % (Auto) Neut # (Auto) Lymph # (Auto) [place] # (Auto) Eos # (Auto) Baso # (Auto) WBC Differential Seg Neuts % (Manual) Band Neuts % (Manual) Lymphocytes % (Manual) Monocytes % (Manual) Eosinophils % (Manual) Metamyelocytes % (Man) Abs Neuts (Manual) Differential Comment Platelet Estimate Platelet Morphology Stomatocytes Sodium Potassium Chloride Carbon Dioxide Anion Gap BUN Creatinine Estimated GFR POC Glucose 181 H 185 H 154 H Random Glucose Calcium Magnesium Troponin I 11/18/17 11/18/17 11/18/17 06:41 11:57 18:57 WBC RBC Hgb Hct MCV MCH MCHC RDW Plt Count MPV Prelim Diff (Auto) Neut % (Auto) Lymph % (Auto) [place] % (Auto) Eos % (Auto) Baso % (Auto) Neut # (Auto) Lymph # (Auto) [place] # (Auto) Eos # (Auto) Baso # (Auto) WBC Differential Seg Neuts % (Manual) Band Neuts % (Manual) Lymphocytes % (Manual) Monocytes % (Manual) Eosinophils % (Manual) Metamyelocytes % (Man) Abs Neuts (Manual) Differential Comment Platelet Estimate Platelet Morphology Stomatocytes Sodium Potassium Chloride Carbon Dioxide Anion Gap BUN Creatinine Estimated GFR POC Glucose 198 H 133 H 157 H Random Glucose Calcium Magnesium Troponin I 11/19/17 11/19/17 11/19/17 00:29 05:40 08:39 WBC RBC Hgb Hct MCV MCH MCHC RDW Plt Count MPV Prelim Diff (Auto) Neut % (Auto) Lymph % (Auto) [place] % (Auto) Eos % (Auto) Baso % (Auto) Neut # (Auto) Lymph # (Auto) [place] # (Auto) Eos # (Auto) Baso # (Auto) WBC Differential Seg Neuts % (Manual) Band Neuts % (Manual) Lymphocytes % (Manual) Monocytes % (Manual) Eosinophils % (Manual) Metamyelocytes % (Man) Abs Neuts (Manual) Differential Comment Platelet Estimate Platelet Morphology Stomatocytes Sodium Potassium Chloride Carbon Dioxide Anion Gap BUN Creatinine Estimated GFR POC Glucose 131 H 126 H 156 H Random Glucose Calcium Magnesium Troponin I 11/19/17 11/19/17 11/19/17 09:37 09:37 09:37 WBC 12.3 H RBC 3.49 L Hgb 10.6 L Hct 32.9 L MCV 94.1 MCH 30.3 MCHC 32.2 RDW 18.3 H Plt Count 218 MPV 7.6 Prelim Diff (Auto) Neut % (Auto) 82.8 H Lymph % (Auto) 8.3 L [place] % (Auto) 7.2 Eos % (Auto) 1.3 Baso % (Auto) 0.4 Neut # (Auto) 10.2 H Lymph # (Auto) 1.0 [place] # (Auto) 0.9 Eos # (Auto) 0.2 Baso # (Auto) 0.0 WBC Differential . Seg Neuts % (Manual) Band Neuts % (Manual) Lymphocytes % (Manual) Monocytes % (Manual) Eosinophils % (Manual) Metamyelocytes % (Man) Abs Neuts (Manual) Differential Comment Auto diff final Platelet Estimate Platelet Morphology Stomatocytes Sodium 145 Potassium 3.4 L Chloride 99 Carbon Dioxide 37.4 H Anion Gap 9 BUN 21 H Creatinine 0.55 L Estimated GFR Greater than 89 POC Glucose Random Glucose 132 H Calcium 8.9 Magnesium 2.5 Troponin I 11/19/17 12:40 WBC RBC Hgb Hct MCV MCH MCHC RDW Plt Count MPV Prelim Diff (Auto) Neut % (Auto) Lymph % (Auto) [place] % (Auto) Eos % (Auto) Baso % (Auto) Neut # (Auto) Lymph # (Auto) [place] # (Auto) Eos # (Auto) Baso # (Auto) WBC Differential Seg Neuts % (Manual) Band Neuts % (Manual) Lymphocytes % (Manual) Monocytes % (Manual) Eosinophils % (Manual) Metamyelocytes % (Man) Abs Neuts (Manual) Differential Comment Platelet Estimate Platelet Morphology Stomatocytes Sodium Potassium Chloride Carbon Dioxide Anion Gap BUN Creatinine Estimated GFR POC Glucose 133 H Random Glucose Calcium Magnesium Troponin I Result Diagrams: 11/19/17 09:37 11/19/17 09:37 Microbiology: Microbiology 11/16/17 11:03 Aerobic Blood Culture - Preliminary Blood - Peripheral No growth in 3 days Anaerobic Blood Culture - Preliminary No growth in 3 days 11/16/17 11:13 Aerobic Blood Culture - Preliminary Blood - Peripheral No growth in 3 days Anaerobic Blood Culture - Preliminary No growth in 3 days Assessment and Plan - Disease Oriented Problem List (1) Respiratory failure Comment: revealed 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 Right middle lobe 2.7 x 2.2 x 7's. Spiculated. Left lingula is 3.4 x 3.20 cm. COPD (2) SVT (supraventricular tachycardia) (3) Lung mass Comment: revealed 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 Right middle lobe 2.7 x 2.2 x 7's. Spiculated. Left lingula is 3.4 x 3.20 cm. 1st biopsy did not show malignancy. 2nd biopsy on hold to risk of decompensation. Pulmonlogy advise against 2nd biopsy given risk. Recommends repeat CT in 4 weeks. If mass decrease in size, more possiblility its infections rather than malignancy. (4) Diabetes (5) Gout (6) Spinal stenosis Pertinent Non-Medical Issues: Psychosocial: Retired. He was living at home with his Tommie Gutierrez and his son "Cristina Palmer. . Speaks Mandarin. Spiritual: unk at this time Legal: Per [place] statutes legal decision maker proxy is pt's . She defers to son Humble in major decisions, but does participate in medical decision and family meetings. Family works together Ethical issues impacting care: no issues identified Important Contacts: Spencer Reilly [phone] Son "Cristina Palmer [phone] Prognosis: 77 yo underlying diastolic heart failure, severe spinal stenosis (s/p surgery) , lung disease and DM. Lung mass/nodule from recent CT(10/30) has decrease in size, so unlikely malignancy, despite no 2nd biopsy. Pt has made more progress neurologically, can move both arms above head on commands, and can move both feet on command. He is also getting less confused. Code Status: Alternative Code Plan: CODE STATUS - Alternate code. Yes to intubation and mechanical ventilation. no to cpr/ shock/ acls drugs. Capacity- he does not appears to be able to weigh the risk and benefits of decision on my visit. Alertness has improved. At times agitated and still fluctuates between drowsiness and alert ness. LEGAL DECISION MAKER - per [place] statutes is proxy , who defers decisions to son, Humble, family all working together. GOALS OF CARE Family meetings- multiple family meetings. They have also met with hospice before (Humble(son_ and pt's together, while I was in the room). At times I have met with alone, at times with Humble (son). [facility] had been use for family meetings. They have decline hospice. 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 Long family meeting 45 mins today with Pt's and Son Humble (11/18/2017). We discussed his clinical condition. Reviewed what has improved, which is neurologically. Pt went from essentially quadraplegia in which specialist had said he was not likely to move his extremities again; to being able to raise both arms above the shoulders and moving his whole leg and foot bilaterally. Family also pointed out that the lung mass after repeat CT show it shrink and that it was not cancer. Mentation has also improved to the point where there are days he is clearer, but their are days where he does fluctuate. We then discussed what has not improve. He has chronic lung disease, and these past weeks/ month has not progress enough to get passy dereck valve. Family understand he will continue to have complication from his lungs, decompensation, desaturation. Review his heart condition, EF, and fluid overload. review that z[employer]glo technician, due to his chronic issues and comorbidities does not recommend heart catherization. They understand the reasoning. Review that echo did show some sclerosis/ vs vegetation in mitral valve. Even if offered they dont think they would have pt undergo LEI. Diagrams were were drawn Pt's and Son both realized he will not make it out of the hospital and will be vent dependent. they know he is at risk of decompensate and . Both know one of these decompensation will take his life. Process of hospice again was reviewed with them, as pt had expressed he wanted to go home. Went through possibly we can transport pt home and transition pt to comfort off bipap or supplemental O2. They decline hospice at this time. Son starting November 24 will be out of the country and in [place] for 2 weeks. He understands that pt can decline and while he is out of the country. Both son and ask for the medical team to do all they can, short of alternative goal (shock, cpr, acls drugs). They are okay with mechanical ventilation. If pt is unstable, go to icu. Another Long conversation with family today (11/19/2017) Had another family meeting with , and then with son on the telephone. == son has change his mind on going to vacation to [place]. == He ask me again if I feel patient will not survive if in the hospital while he is gone. I told him he is always at risk of decompensation and decline. == Family has reconsider hospice care, but ask if we can wait for family to arrive 11/29, pt's son and daughter. == I reviewed extensively hospice and comfort measures, withdrawing care in the care center vs at home (which may have logistic issues). == His preference is to bring him home. == For aggressive care for now short of alternative code(no compression/ shock/ acls drugs) okay with mechanical ventilation until family could arrive by next week 11/29 Then they are amenable to meet with hospice. == Pt's son has decided to cancel trip [place] per my conversation. SYMPTOMS * shortness of breath -. Questionable malignancy, hx remote TB. O. Status post tracheostomy. risk of decompensation. Family amenable to transferring back to icu, if respiratory status clinically worsen. * pain - ?cause? presented with right side and thoracic pain. imaging showing lung nodules. buttock wound. BX benign, ?repeat. appears comfortable, no signs of pain on exam. Palliative care will continue to follow during hospital course as condition evolves to assist patient/decision maker with understanding of medical conditions, benefits/burdens of treatment options, clarification of goals of treatment, and will assist with symptoms of palliative concern.
[2017-11-19] MEDS: Temazepam 15 MG Capsule PO PRN (20:56)
[2017-11-20] MEDS: Insulin NovoLOG Aspart Correctional Sugar Inj SQ SCH ×4 (00:12→17:22)
[2017-11-20] MEDS: Oral Hygiene Kit OROPHARYNG SCH ×5 (00:13→23:56)
[2017-11-20] MEDS: Piperacil/Tazo 4.5 GM Premix 4.5 GM/100 ML BAG IV.SIG SCH ×3 (05:16→21:07)
[2017-11-20 08:46] LABS: Baso # (Auto) 0.1 th/mm3 (0.0-0.2); Baso % (Auto) 0.8 % (0.0-2.0); Eos # (Auto) 0.4 th/mm3 (0.0-0.4); Eos % (Auto) 4.4 % (0.0-4.0); Hematocrit 29.7 % (39.0-51.0); Hemoglobin 9.5 gm/dL (13.0-17.0); Lymph # (Auto) 0.7 th/mm3 (1.0-4.8); Lymph % (Auto) 7.3 % (9.0-44.0); Mean Corpuscular HGB Conc 32.1 % (32.0-36.0); Mean Corpuscular Hemoglobin 30.3 pg (27.0-34.0); Mean Corpuscular Volume 94.3 fL (80.0-100.0); Mean Platelet Volume 7.3 fL (7.0-11.0); Mono # (Auto) 0.7 th/mm3 (0.0-0.9); Mono % (Auto) 8.2 % (0.0-8.0); Neut # (Auto) 7.1 th/mm3 (1.8-7.7); Neut % (Auto) 79.3 % (16.0-70.0); Platelet Count 207 th/mm3 (150-450); Red Blood Count 3.15 mil/mm3 (4.50-5.90); Red Cell Distribution Width 18.1 % (11.6-17.2)
[2017-11-20 09:04] LABS: Anion Gap 7 meq/L (5-15); Blood Urea Nitrogen 23 mg/dL (7-18); Calcium 8.5 mg/dL (8.5-10.1); Carbon Dioxide 37.5 meq/L (21.0-32.0); Chloride 101 meq/L (98-107); Glomerular Filtration Rate Greater Than 89 mL/min (>89); Glucose,Random 135 mg/dL (74-106); Magnesium 2.6 mg/dL (1.5-2.5); Potassium 3.5 meq/L (3.5-5.1); Sodium 145 meq/L (136-145)
[2017-11-20] MEDS: Enoxaparin Inj 40 MG/0.4 ML Syringe SQ SCH (09:11)
[2017-11-20] MEDS: Lactobacillus Acidophilus/L. Spores Tablet G-TUBE SCH ×3 (09:12→17:22)
[2017-11-20] MEDS: Metoprolol Tartrate 25 MG Tablet NG/OG SCH ×2 (09:12→20:20)
[2017-11-20] MEDS: QUEtiapine 25 MG Tablet NG/OG SCH ×2 (09:12→20:20)
[2017-11-20] MEDS: Furosemide 20 MG Tablet PO SCH (09:12)
[2017-11-20] MEDS: Chlorhexidine 0.12% Oral Kit 15 ML UDC OROPHARYNG SCH ×2 (09:13→20:20)
[2017-11-20] MEDS: Insulin Detemir Inj 1,000 UNIT/10 ML Vial SQ SCH ×2 (09:13→20:21)
[2017-11-20] MEDS: Lisinopril 5 MG Tablet PO SCH ×2 (09:14→13:34)
--- NOTE | 2017-11-20 09:55 | P.PNIM ---
Subjective Interval history: The pt was on BiPAP. He appeared comfortable. Discussed with nursing who reported the pt has been demonstrating shallow breathing at times. Physical Exam Vital signs: Vital Signs 11/19/17 12:00 11/19/17 16:00 11/19/17 19:00 Temperature 97.9 F 97.7 F Pulse Rate 103 H 100 H Respiratory Rate 21 21 Blood Pressure 109/66 116/62 Pulse Oximetry 98 97 96 11/19/17 20:00 11/19/17 21:47 11/19/17 23:00 Temperature 98.4 F Pulse Rate 87 100 H 100 H Respiratory Rate 22 21 33 H Blood Pressure 84/47 L 128/70 Pulse Oximetry 96 97 93 L 11/20/17 00:00 11/20/17 01:09 11/20/17 04:00 Temperature 97.7 F 98.1 F Pulse Rate 96 H 91 H Respiratory Rate 20 23 Blood Pressure 80/51 L 109/65 Pulse Oximetry 95 98 95 11/20/17 04:05 11/20/17 07:56 11/20/17 07:57 Temperature Pulse Rate 96 H Respiratory Rate 24 Blood Pressure Pulse Oximetry 96 98 98 11/20/17 08:00 Temperature 98.6 F Pulse Rate 92 H Respiratory Rate 24 Blood Pressure 103/57 L Pulse Oximetry 97 Intake & Output 11/19/17 11/20/17 11/20/17 18:59 06:59 18:59 Intake Total 1571 / 1571 1350 / 1350 Output Total 2049 300 / 300 Balance -479 / -479 1050 / 1050 Weight 69.6 kg Intake: IV 200 / 200 100 / 100 Zosyn 4.5 GM Premix 4.5 gm In 200 / 200 100 / 100 100 ml @ 200 mls/hr IV.SIG Q8HR [facility] Rx#:[id number] Oral 0 / 0 Tube Feeding 711 / 711 650 / 650 Tube Irrigant 60 / 60 100 / 100 Water Bolus Amount 600 / 600 300 / 300 Anesthesia Amount 0 / 0 Other 200 / 200 Output: Urine 250 / 250 300 / 300 Stool 400 / 400 0 / 0 Urine/Stool Mix 0 / 0 0 / 0 Urine Amount (Catheter) 1300 / 1300 Indwelling Urethral Catheter 1300 / 1300 Chest Tube Drainage 100 / 100 Left 100 / 100 Other: Other Intake Source Saline Solution # Voids 2 4 # Incontinent Voids 3 Date of Last Bowel Movement 11/19/17 11/19/17 11/19/17 # Bowel Movements 0 0 Narrative: GENERAL: Well-developed, cachectic, in no acute distress. Patient is on BiPAP. HEENT: Head is normocephalic without any lesions or masses noted. Facial features are symmetric. Eyes: Extraocular muscles are intact. Conjunctivae were clear. NECK: Supple without any masses. Tracheostomy noted. No JVD. CARDIAC: Regular rhythm, regular rate. S1/S2 are heard. No murmurs gallops or rubs. LUNGS: Clear to auscultation bilaterally. No wheeze, rhonchi or rales. No use of accessory muscles on inspiration or expiration. ABDOMEN: Soft, nontender. Nondistended. Bowel sounds heard in all 4 quadrants. Negative rebound, negative guarding. EXTREMITIES: No edema, pulses are equal bilaterally. No cyanosis or clubbing. - Urinary Catheter Management Indwelling Urethral Catheter Cath placed during this visit: yes, but has since been removed by the nurse Urethral indwelling: Yes Reason for continuing: Decision to DC catheter Insertion date: 08/20/17 Insertion time: 17:00 Removal date: 11/19/17 Removal time: 15:20 Results - Labs CBC & Chem 7: 11/20/17 08:18 11/20/17 08:18 Laboratory Results - last 24 hr 11/19/17 11/19/17 11/19/17 09:37 09:37 09:37 WBC 12.3 H RBC 3.49 L Hgb 10.6 L Hct 32.9 L MCV 94.1 MCH 30.3 MCHC 32.2 RDW 18.3 H Plt Count 218 MPV 7.6 Neut % (Auto) 82.8 H Lymph % (Auto) 8.3 L [place] % (Auto) 7.2 Eos % (Auto) 1.3 Baso % (Auto) 0.4 Neut # (Auto) 10.2 H Lymph # (Auto) 1.0 [place] # (Auto) 0.9 Eos # (Auto) 0.2 Baso # (Auto) 0.0 WBC Differential . Differential Comment Auto diff final Sodium 145 Potassium 3.4 L Chloride 99 Carbon Dioxide 37.4 H Anion Gap 9 BUN 21 H Creatinine 0.55 L Estimated GFR Greater than 89 POC Glucose Random Glucose 132 H Calcium 8.[address] C. diff Tox Epid 027 C. difficile Tox (PCR) 11/19/17 11/19/17 11/19/17 12:40 12:41 16:54 WBC RBC Hgb Hct MCV MCH MCHC RDW Plt Count MPV Neut % (Auto) Lymph % (Auto) [place] % (Auto) Eos % (Auto) Baso % (Auto) Neut # (Auto) Lymph # (Auto) [place] # (Auto) Eos # (Auto) Baso # (Auto) WBC Differential Differential Comment Sodium Potassium Chloride Carbon Dioxide Anion Gap BUN Creatinine Estimated GFR POC Glucose 133 H 143 H Random Glucose Calcium Magnesium St C. diff Tox Epid 027 Negative C. difficile Tox (PCR) Negative 11/20/17 11/20/17 11/20/17 00:07 05:21 08:18 WBC 9.0 RBC 3.15 L Hgb 9.5 L Hct 29.7 L MCV 94.3 MCH 30.3 MCHC 32.1 RDW 18.1 H Plt Count 207 MPV 7.3 Neut % (Auto) 79.3 H Lymph % (Auto) 7.3 L [place] % (Auto) 8.2 H Eos % (Auto) 4.4 H Baso % (Auto) 0.8 Neut # (Auto) 7.1 Lymph # (Auto) 0.7 L [place] # (Auto) 0.7 Eos # (Auto) 0.4 Baso # (Auto) 0.1 WBC Differential . Differential Comment Auto diff final Sodium Potassium Chloride Carbon Dioxide Anion Gap BUN Creatinine Estimated GFR POC Glucose 196 H 136 H Random Glucose Calcium Magnesium St C. diff Tox Epid 027 C. difficile Tox (PCR) 11/20/17 08:18 WBC RBC Hgb Hct MCV MCH MCHC RDW Plt Count MPV Neut % (Auto) Lymph % (Auto) [place] % (Auto) Eos % (Auto) Baso % (Auto) Neut # (Auto) Lymph # (Auto) [place] # (Auto) Eos # (Auto) Baso # (Auto) WBC Differential Differential Comment Sodium 145 Potassium 3.5 Chloride 101 Carbon Dioxide 37.5 H Anion Gap 7 BUN 23 H Creatinine 0.56 L Estimated GFR Greater than 89 POC Glucose Random Glucose 135 H Calcium 8.[address] C[address] diff Tox Epid 027 C. difficile Tox (PCR) Microbiology 11/16/17 11:03 Blood - Peripheral Aerobic Blood Culture - Preliminary No growth in 3 days 11/16/17 11:03 Blood - Peripheral Anaerobic Blood Culture - Preliminary No growth in 3 days 11/16/17 11:13 Blood - Peripheral Aerobic Blood Culture - Preliminary No growth in 3 days 11/16/17 11:13 Blood - Peripheral Anaerobic Blood Culture - Preliminary No growth in 3 days - Procedures 08/23- intubation 09/03- bronchoscopy, lung biopsy, thoracentesis 09/08- tracheostomy 09/11- PEG placement s/p C2 hemicolectomy, C3 through C5 laminoplasty Assessment and Plan - Plan Acute on chronic hypercapnic respiratory failure secondary to chronic obstructive pulmonary disease -CT pulmonary angiogram revealed multiple masses. 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 Second biopsy held due to risk of decompensation. Pulmonology has advised against doing a second biopsy given risk. -Repeat CT scan was performed and indicated almost complete resolution of previous mass noted -Pulmonology following the patient -Patient continues on BiPAP for respiratory support. Vent if needed. -Continue pulmonary toilet -Could consider Diamox secondary to the patient with worsening hypercapnia, will defer to brand marketing specialist Hospital-acquired pneumonia -Pseudomonas, Citrobacter infection with recent sputum culture -Patient currently on Zosyn, will continue for total of 10 days DC date November 22 Congestive heart failure with elevated troponin -Patient started on diuresis continued on Lasix 20 mg IV daily, will change to p.o. daily -Patient started on aspirin, continued on lower dose of metoprolol, digoxin, and lisinopril -Cardiology evaluated the patient recommending medical management -echo with normal EF; Possible mobile echodensity is noted on the mitral valve subvalvular apparatus. -Continue monitor input and output History of Afib; -Amiodarone discontinued earlier in hospitalization for Bradycardia -Continue Digoxin Labile blood pressure -Metoprolol decreased down to 25 mg twice daily -lisinopril decreased to 2.5 mg daily -Lasix 20 mg daily Severe cervical spinal stenosis/severe encephalopathy -MRI C-spine 09/15: Focal severe spinal canal stenosis at C4-5. And otherwise moderate changes on other levels -s/p C2 hemicolectomy, C3 through C5 laminoplasty with quadriplegia and acute spinal injury -Head CT 08/23: 2 questionable tiny focal hemorrhages. -MRI of brain 08/26 chronic small vessel ischemic and atrophic changes. -EEG 09/03 revealed severe encephalopathy. No epileptiform activity -Neurosurgery Dr. Victor consulted, Poor chance of neurological recovery for him , no further surgical intervention per son. -Neurology Dr. Carvalho. Patient treated with steroids per neurology recommendations, course completed. Severe malnutrition -Patient currently on tube feeding -Dietary following the patient Urinary retention -Larson in place per urology -Monitor output on diuresis Type 2 diabetes -Accu-Cheks with sliding scale insulin coverage -Levemir 5 units twice daily -Patient on Glucerna tube feeding Diarrhea history of C. difficile. Repeat C. difficile and start Lactinex DVT prevention -subCutaneous Lovenox
--- NOTE | 2017-11-20 11:35 | XR ---
EXAM DATE: 11/20/2017 10:45 AM EDT AGE/SEX: 77 years / Male INDICATIONS: Dyspnea. CLINICAL DATA: This is the patient's subsequent encounter. Patient reports that signs and symptoms h ave been present for 3 weeks and indicates a pain score of 0/10. MEDICAL/SURGICAL HISTORY: . Diabetes. Emphysema. Hypertension. A-fib. . Tracheostomy. COMPARISON: [facility] [place], CT CHEST W/O CONTRAST, 11/07/2017. . FINDINGS: The cardiac silhouette is normal in transverse diameter. A tracheostomy tube is in place in the midli ne. There is patchy alveolar disease on the left compatible with edema or pneumonia. The findings are similar to the prior exam. There are baseline chronic fibrotic changes. There is an 8 mm nodule in t he right upper lobe not well seen on the prior chest radiograph. CONCLUSION: Diffuse left-sided edema versus pneumonia. The findings are similar to the prior exam. Electronically signed by: David Ryan MD 11/20/2017 11:34 AM EDT
--- NOTE | 2017-11-20 13:03 | P.PN ---
Subjective Interval history: He is in distress.poorly responsive and has low BP. O2 aly 96 on 50 %. poor resp effort. On BIPAP now Physical Exam Vital signs: Vital Signs 11/19/17 16:00 11/19/17 19:00 11/19/17 20:00 Temperature 97.7 F 98.4 F Pulse Rate 100 H 87 Respiratory Rate 21 22 Blood Pressure 116/62 84/47 L Pulse Oximetry 97 96 96 11/19/17 21:47 11/19/17 23:00 11/20/17 00:00 Temperature 97.7 F Pulse Rate 100 H 100 H 96 H Respiratory Rate 21 33 H 20 Blood Pressure 128/70 80/51 L Pulse Oximetry 97 93 L 95 11/20/17 01:09 11/20/17 04:00 11/20/17 04:05 Temperature 98.1 F Pulse Rate 91 H Respiratory Rate 23 Blood Pressure 109/65 Pulse Oximetry 98 95 96 11/20/17 07:56 11/20/17 07:57 11/20/17 08:00 Temperature 98.6 F Pulse Rate 96 H 92 H Respiratory Rate 24 24 Blood Pressure 103/57 L Pulse Oximetry 98 98 97 11/20/17 12:00 Temperature 98.7 F Pulse Rate 91 H Respiratory Rate 23 Blood Pressure 133/73 Pulse Oximetry 97 Intake & Output 11/19/17 11/20/17 11/20/17 18:59 06:59 18:59 Intake Total 1571 / 1571 1350 / 1350 Output Total 2049 300 / 300 Balance -479 / -479 1050 / 1050 Weight 69.6 kg Intake: IV 200 / 200 100 / 100 Zosyn 4.5 GM Premix 4.5 gm In 200 / 200 100 / 100 100 ml @ 200 mls/hr IV.SIG Q8HR [facility] Rx#:[id number] Oral 0 / 0 Tube Feeding 711 / 711 650 / 650 Tube Irrigant 60 / 60 100 / 100 Water Bolus Amount 600 / 600 300 / 300 Anesthesia Amount 0 / 0 Other 200 / 200 Output: Urine 250 / 250 300 / 300 Stool 400 / 400 0 / 0 Urine/Stool Mix 0 / 0 0 / 0 Urine Amount (Catheter) 1300 / 1300 Indwelling Urethral Catheter 1300 / 1300 Chest Tube Drainage 100 / 100 Left 100 / 100 Other: Other Intake Source Saline Solution # Voids 2 4 # Incontinent Voids 3 Date of Last Bowel Movement 11/19/17 11/19/17 11/19/17 # Bowel Movements 0 0 GENERAL: Elderly male lethargic. Emaciated. SKIN: cool and dry HEAD: Atraumatic. Normocephalic. EYES: Pupils round. No scleral icterus. No injection or drainage. ENT: No nasal bleeding or discharge. Mucous membranes pink and moist. NECK: Trachea midline. No JVD. CARDIOVASCULAR: Regular rate and rhythm. RESPIRATORY:Basal crackles and wheeze. Breath sounds equal bilaterally. GASTROINTESTINAL: Abdomen soft, non-tender, nondistended. Hepatic and splenic margins not palpable. MUSCULOSKELETAL: Extremities without clubbing, cyanosis, or edema. No obvious deformities. NEUROLOGICAL: very lethargic and obtunded PSYCHIATRIC: cannot asses Narrative: GENERAL: Well-developed, cachectic, in mild distress. Patient is on BiPAP. HEENT: Head is normocephalic without any lesions or masses noted. Facial features are symmetric. Eyes: Extraocular muscles are intact. Conjunctivae were clear. NECK: Supple without any masses. Tracheostomy noted. No JVD. CARDIAC: Regular rhythm, regular rate. S1/S2 are heard. No murmurs gallops or rubs. LUNGS: Bilateral wheeze, and basal rales. Diminished breath sounds left side ABDOMEN: Soft, nontender. Nondistended. Bowel sounds heard in all 4 quadrants. Negative rebound, negative guarding. EXTREMITIES: No edema, pulses are equal bilaterally. - Urinary Catheter Management Indwelling Urethral Catheter Cath placed during this visit: yes, but has since been removed by the nurse Urethral indwelling: Yes Reason for continuing: Decision to DC catheter Insertion date: 08/20/17 Insertion time: 17:00 Removal date: 11/19/17 Removal time: 15:20 Results - Labs CBC & Chem 7: 11/20/17 08:18 11/20/17 08:18 Laboratory Results - last 24 hr 11/19/17 11/19/17 11/19/17 09:37 12:40 12:41 WBC RBC Hgb Hct MCV MCH MCHC RDW Plt Count MPV Neut % (Auto) Lymph % (Auto) [place] % (Auto) Eos % (Auto) Baso % (Auto) Neut # (Auto) Lymph # (Auto) [place] # (Auto) Eos # (Auto) Baso # (Auto) WBC Differential Differential Comment Sodium Potassium Chloride Carbon Dioxide Anion Gap BUN Creatinine Estimated GFR POC Glucose 133 H Random Glucose Calcium Magnesium 2.5 St C. diff Tox Epid 027 Negative C. difficile Tox (PCR) Negative 11/19/17 11/20/17 11/20/17 16:54 00:07 05:21 WBC RBC Hgb Hct MCV MCH MCHC RDW Plt Count MPV Neut % (Auto) Lymph % (Auto) [place] % (Auto) Eos % (Auto) Baso % (Auto) Neut # (Auto) Lymph # (Auto) [place] # (Auto) Eos # (Auto) Baso # (Auto) WBC Differential Differential Comment Sodium Potassium Chloride Carbon Dioxide Anion Gap BUN Creatinine Estimated GFR POC Glucose 143 H 196 H 136 H Random Glucose Calcium Magnesium St C. diff Tox Epid 027 C. difficile Tox (PCR) 11/20/17 11/20/17 11/20/17 08:18 08:18 12:09 WBC 9.0 RBC 3.15 L Hgb 9.5 L Hct 29.7 L MCV 94.3 MCH 30.3 MCHC 32.1 RDW 18.1 H Plt Count 207 MPV 7.3 Neut % (Auto) 79.3 H Lymph % (Auto) 7.3 L [place] % (Auto) 8.2 H Eos % (Auto) 4.4 H Baso % (Auto) 0.8 Neut # (Auto) 7.1 Lymph # (Auto) 0.7 L [place] # (Auto) 0.7 Eos # (Auto) 0.4 Baso # (Auto) 0.1 WBC Differential . Differential Comment Auto diff final Sodium 145 Potassium 3.5 Chloride 101 Carbon Dioxide 37.5 H Anion Gap 7 BUN 23 H Creatinine 0.56 L Estimated GFR Greater than 89 POC Glucose 150 H Random Glucose 135 H Calcium 8.[address] C[address] diff Tox Epid 027 C. difficile Tox (PCR) Microbiology 11/16/17 11:03 Blood - Peripheral Aerobic Blood Culture - Preliminary No growth in 4 days 11/16/17 11:03 Blood - Peripheral Anaerobic Blood Culture - Preliminary No growth in 4 days 11/16/17 11:13 Blood - Peripheral Aerobic Blood Culture - Preliminary No growth in 4 days 11/16/17 11:13 Blood - Peripheral Anaerobic Blood Culture - Preliminary No growth in 4 days - Imaging Impressions Chest X-Ray 11/20/17 09:45 CONCLUSION: Diffuse left-sided edema versus pneumonia. The findings are similar to the prior exam. - Procedures 08/23- intubation 09/03- bronchoscopy, lung biopsy, thoracentesis 09/08- tracheostomy 09/11- PEG placement s/p C2 hemicolectomy, C3 through C5 laminoplasty Assessment and Plan - Assessment (1) Cervical myelopathy Code(s): G95.9 - Disease of spinal cord, unspecified Status: Acute (2) Respiratory failure Code(s): J96.90 - Respiratory failure, unspecified, unspecified whether with hypoxia or hypercapnia Status: Acute (3) SVT (supraventricular tachycardia) Code(s): I47.1 - Supraventricular tachycardia Status: Acute (4) Lung mass Code(s): R91.8 - Other nonspecific abnormal finding of lung field Status: Acute (5) Diabetes Code(s): E11.9 - Type 2 diabetes mellitus without complications Status: Acute (6) Gout Code(s): M10.9 - Gout, unspecified Status: Acute (7) Spinal stenosis Code(s): M48.00 - Spinal stenosis, site unspecified Status: Acute (8) Dyspnea Code(s): R06.00 - Dyspnea, unspecified Status: Acute - Plan 1. Transfer to ICU on vent support 2. Trach lavage and suction PRN 3. Cont Duoneb nebs qid. 4. Vent support FIO2 50 % 5. Tube feeds at 60CC 6. CXR ,CBC 7. D/W nurse here 8. Will check with palliative care about code status and or Hospice.
[2017-11-20 13:58] LABS: ABG Base Excess 12.5 mmol/L (-2-2); ABG PCO2 62 mmHg (38-42); ABG PO2 149 mmHG (61-120)
[2017-11-20] MEDS ORDERED: Morphine Inj 4 MG/ML Vial IV.PUSH PRN (16:06)
--- NOTE | 2017-11-20 16:14 | P.PNPAL ---
Reason for Visit Reason for visit: a. To assist with evaluation and management of symptoms including: dyspnea, pain, b. To assist medical decision maker(s) with: better understanding of current medical conditions; weighing benefits/burdens of medical treatment options; making medical treatment decisions. Subjective Subjective/Interval History: Out of notified patient with acute change in status earlier today respiratory distress. [place] [facility] [place] Patient CBC, chemistry from earlier today unremarkable. Slight downtrending of H&H, hemoglobin 9.5/hematocrit 29.7. CXR today=Diffuse left-sided edema versus pneumonia. The findings are similar to the prior exam. palliative met with length with family yesterday, much review of goals going forward, discussion regarding hospice and transition to comfort. Family ultimately elected to continue with current treatment measures, no cardiac resuscitation, while awaiting additional family to arrive from [place]. Patient seen in room with and son at bedside. Ventilator rate 18, tidal volume 450, 40% FiO2, 5 PEEP. Appears mildly tachypneic at time of my exam. There is some air leak audible around trach. He seems to be responding to his family's interaction somewhat although does not really respond to me. Eyes are open tracts. Family reported to have met with hospice earlier today and elected to proceed with enrollment though awaiting additional family to arrive from out of the area. Met with son, at length using [employer] translation. Review with them patient's condition today, review with them their discussions with Dr. Srivastava of palliative yesterday. Son and appear to have good understanding of patient 's condition. The understand that he has had increased work of breathing today requiring mechanical vent. They understand he is not expected to survive his conditions in the long-term. They indicate they want to proceed with comfort measures and allowing him to not suffer. They are awaiting additional daughter to arrive from out [facility] sometime either late tonight or early tomorrow morning. At that time they would want to proceed with removing mechanical vent and transition to comfort measures only with hospice services in place. They are not certain at this time if they would want to remove vent here at the hospital and transition to a care center or possibly wait for removal at a hospice care center. Review with him current condition, he is not requiring high levels of ventilator support very possible that he may be stable enough to remove from ventilator here and transition to the care center setting for comfort at end-of-life. Affirm with them continue current measures in place, they desire no further invasive escalation no further invasive procedures. They would be amenable to addition of pressors if needed to keep him stable until additional family arrives. They would like comfort medicines if available to ensure that he is not experiencing pain or anxiety. They affirm intubation status only no cardiac resuscitation. All questions answered to the best of my land to proceed with hospice enrollment once extubation plan confirmed. Exhibits C signed per hospital policy by palliative care physician. Placed in chart. Plan to follow-up with family tomorrow morning. Hospice nurse present for most of meeting, aware of plan. *As meeting concluded patient developed chest pain, ICU ER CT team nurse was notified and assisted to the ED for evaluation. Discussed all with medical attending, primary nurse Advance Directives Living Will: Never completed Health Care Surrogate: Never completed Durable Power of Upsetting Machine Operator: Never completed Objective Vital Signs: Vital Signs 11/19/17 19:00 11/19/17 20:00 11/19/17 21:47 Temperature 98.4 F Pulse Rate 87 100 H Respiratory Rate 22 21 Blood Pressure 84/47 L Pulse Oximetry 96 96 97 11/19/17 23:00 11/20/17 00:00 11/20/17 01:09 Temperature 97.7 F Pulse Rate 100 H 96 H Respiratory Rate 33 H 20 Blood Pressure 128/70 80/51 L Pulse Oximetry 93 L 95 98 11/20/17 04:00 11/20/17 04:05 11/20/17 07:56 Temperature 98.1 F Pulse Rate 91 H 96 H Respiratory Rate 23 24 Blood Pressure 109/65 Pulse Oximetry 95 96 98 11/20/17 07:57 11/20/17 08:00 11/20/17 12:00 Temperature 98.6 F 98.7 F Pulse Rate 92 H 91 H Respiratory Rate 24 23 Blood Pressure 103/57 L 133/73 Pulse Oximetry 98 97 97 11/20/17 13:36 11/20/17 16:03 Temperature Pulse Rate Respiratory Rate 17 18 Blood Pressure Pulse Oximetry 100 98 Intake & Output 11/19/17 11/20/17 11/20/17 18:59 06:59 18:59 Intake Total 1571 / 1571 1450 / 1450 Output Total 2049 / 2049 300 / 300 Balance -479 / -479 1150 / 1150 Weight 69.6 kg Intake: IV 200 / 200 200 / 200 Zosyn 4.5 GM Premix 4.5 gm In 200 / 200 200 / 200 100 ml @ 200 mls/hr IV.SIG Q8HR MICHELET Rx#:[id number] Oral 0 / 0 Tube Feeding 711 / 711 650 / 650 Tube Irrigant 60 / 60 100 / 100 Water Bolus Amount 600 / 600 300 / 300 Anesthesia Amount 0 / 0 Other 200 / 200 Output: Urine 250 / 250 300 / 300 Stool 400 / 400 0 / 0 Urine/Stool Mix 0 / 0 0 / 0 Urine Amount (Catheter) 1300 / 1300 Indwelling Urethral Catheter 1300 / 1300 Chest Tube Drainage 100 / 100 Left 100 / 100 Other: Other Intake Source Saline Solution # Voids 2 4 # Incontinent Voids 3 Date of Last Bowel Movement 11/19/17 11/19/17 11/19/17 # Bowel Movements 0 0 Physical Exam: CONSTITUTIONAL/GENERAL: This is an adequately nourished patient , tracheostomy to vent, lethargic TUBES/LINES/DRAINS: Tracheostomy to vent , ceja, PIV x2 BUE, SKIN: No jaundice, rashes, or lesions. No wounds seen anteriorly. skin warm/ dry EYES: Eyes open seems to be tracking family. Pupils equal and reactive.. No injection or drainage. Fundi not examined. ENT: Nose without bleeding or purulent drainage. Mouth closed did not open for exam. CARDIOVASCULAR: RRR without murmurs. No JVD. Peripheral pulses symmetric. Trace periph edema to hands. RESPIRATORY/CHEST: Mildly tachypneic, mildly labored respirations from trach to mechanical vent. Coarse rhonchi. Diminished sounds bases. Breath sounds equal bilaterally. GASTROINTESTINAL: Abdomen soft, non-tender, nondistended. No hepato-splenomegaly , or palpable masses. Bowel sounds present. TF infusing peg MUSCULOSKELETAL: Trace +BUE edema. No mottling or clubbing. NEUROLOGICAL: Lethargic, minimally responds to my exam. Eyes open at times. Seems to track family members, seems to respond more to them grasps their hands with his. PSYCH: No apparent anxiety Diagnostic Tests Laboratory: Laboratory Results - last 72 hr 11/17/17 11/18/17 11/18/17 18:23 00:33 06:41 WBC RBC Hgb Hct MCV MCH MCHC RDW Plt Count MPV Neut % (Auto) Lymph % (Auto) [place] % (Auto) Eos % (Auto) Baso % (Auto) Neut # (Auto) Lymph # (Auto) [place] # (Auto) Eos # (Auto) Baso # (Auto) WBC Differential Differential Comment Puncture Site Patient Temperature O2 Saturation ABG pH ABG pCO2 ABG pO2 ABG HCO3 ABG O2 Content ABG Base Excess ABG Methemoglobin Dave Test Hemoglobin Carboxyhemoglobin O2 Delivery Device Vent Setting Inspired O2 Critical Value Sodium Potassium Chloride Carbon Dioxide Anion Gap BUN Creatinine Estimated GFR POC Glucose 185 H 154 H 198 H Random Glucose Calcium Magnesium St C. diff Tox Epid 027 C. difficile Tox (PCR) 11/18/17 11/18/17 11/19/17 11:57 18:57 00:29 WBC RBC Hgb Hct MCV MCH MCHC RDW Plt Count MPV Neut % (Auto) Lymph % (Auto) [place] % (Auto) Eos % (Auto) Baso % (Auto) Neut # (Auto) Lymph # (Auto) [place] # (Auto) Eos # (Auto) Baso # (Auto) WBC Differential Differential Comment Puncture Site Patient Temperature O2 Saturation ABG pH ABG pCO2 ABG pO2 ABG HCO3 ABG O2 Content ABG Base Excess ABG Methemoglobin Dave Test Hemoglobin Carboxyhemoglobin O2 Delivery Device Vent Setting Inspired O2 Critical Value Sodium Potassium Chloride Carbon Dioxide Anion Gap BUN Creatinine Estimated GFR POC Glucose 133 H 157 H 131 H Random Glucose Calcium Magnesium St C. diff Tox Epid 027 C. difficile Tox (PCR) 11/19/17 11/19/17 11/19/17 05:40 08:39 09:37 WBC RBC Hgb Hct MCV MCH MCHC RDW Plt Count MPV Neut % (Auto) Lymph % (Auto) [place] % (Auto) Eos % (Auto) Baso % (Auto) Neut # (Auto) Lymph # (Auto) [place] # (Auto) Eos # (Auto) Baso # (Auto) WBC Differential Differential Comment Puncture Site Patient Temperature O2 Saturation ABG pH ABG pCO2 ABG pO2 ABG HCO3 ABG O2 Content ABG Base Excess ABG Methemoglobin Dave Test Hemoglobin Carboxyhemoglobin O2 Delivery Device Vent Setting Inspired O2 Critical Value Sodium 145 Potassium 3.4 L Chloride 99 Carbon Dioxide 37.4 H Anion Gap 9 BUN 21 H Creatinine 0.55 L Estimated GFR Greater than 89 POC Glucose 126 H 156 H Random Glucose 132 H Calcium 8.[address] C. diff Tox Epid 027 C. difficile Tox (PCR) 11/19/17 11/19/17 11/19/17 09:37 09:37 12:40 WBC 12.3 H RBC 3.49 L Hgb 10.6 L Hct 32.9 L MCV 94.1 MCH 30.3 MCHC 32.2 RDW 18.3 H Plt Count 218 MPV 7.6 Neut % (Auto) 82.8 H Lymph % (Auto) 8.3 L [place] % (Auto) 7.2 Eos % (Auto) 1.3 Baso % (Auto) 0.4 Neut # (Auto) 10.2 H Lymph # (Auto) 1.0 [place] # (Auto) 0.9 Eos # (Auto) 0.2 Baso # (Auto) 0.0 WBC Differential . Differential Comment Auto diff final Puncture Site Patient Temperature O2 Saturation ABG pH ABG pCO2 ABG pO2 ABG HCO3 ABG O2 Content ABG Base Excess ABG Methemoglobin Dave Test Hemoglobin Carboxyhemoglobin O2 Delivery Device Vent Setting Inspired O2 Critical Value Sodium Potassium Chloride Carbon Dioxide Anion Gap BUN Creatinine Estimated GFR POC Glucose 133 H Random Glucose Calcium Magnesium 2.5 St C. diff Tox Epid 027 C. difficile Tox (PCR) 11/19/17 11/19/17 11/20/17 12:41 16:54 00:07 WBC RBC Hgb Hct MCV MCH MCHC RDW Plt Count MPV Neut % (Auto) Lymph % (Auto) [place] % (Auto) Eos % (Auto) Baso % (Auto) Neut # (Auto) Lymph # (Auto) [place] # (Auto) Eos # (Auto) Baso # (Auto) WBC Differential Differential Comment Puncture Site Patient Temperature O2 Saturation ABG pH ABG pCO2 ABG pO2 ABG HCO3 ABG O2 Content ABG Base Excess ABG Methemoglobin Dave Test Hemoglobin Carboxyhemoglobin O2 Delivery Device Vent Setting Inspired O2 Critical Value Sodium Potassium Chloride Carbon Dioxide Anion Gap BUN Creatinine Estimated GFR POC Glucose 143 H 196 H Random Glucose Calcium Magnesium St C. diff Tox Epid 027 Negative C. difficile Tox (PCR) Negative 11/20/17 11/20/17 11/20/17 05:21 08:18 08:18 WBC 9.0 RBC 3.15 L Hgb 9.5 L Hct 29.7 L MCV 94.3 MCH 30.3 MCHC 32.1 RDW 18.1 H Plt Count 207 MPV 7.3 Neut % (Auto) 79.3 H Lymph % (Auto) 7.3 L [place] % (Auto) 8.2 H Eos % (Auto) 4.4 H Baso % (Auto) 0.8 Neut # (Auto) 7.1 Lymph # (Auto) 0.7 L [place] # (Auto) 0.7 Eos # (Auto) 0.4 Baso # (Auto) 0.1 WBC Differential . Differential Comment Auto diff final Puncture Site Patient Temperature O2 Saturation ABG pH ABG pCO2 ABG pO2 ABG HCO3 ABG O2 Content ABG Base Excess ABG Methemoglobin Dave Test Hemoglobin Carboxyhemoglobin O2 Delivery Device Vent Setting Inspired O2 Critical Value Sodium 145 Potassium 3.5 Chloride 101 Carbon Dioxide 37.5 H Anion Gap 7 BUN 23 H Creatinine 0.56 L Estimated GFR Greater than 89 POC Glucose 136 H Random Glucose 135 H Calcium 8.[address] C[address] diff Tox Epid 027 C. difficile Tox (PCR) 11/20/17 11/20/17 12:09 13:34 WBC RBC Hgb Hct MCV MCH MCHC RDW Plt Count MPV Neut % (Auto) Lymph % (Auto) [place] % (Auto) Eos % (Auto) Baso % (Auto) Neut # (Auto) Lymph # (Auto) [place] # (Auto) Eos # (Auto) Baso # (Auto) WBC Differential Differential Comment Puncture Site Right radial Patient Temperature 98.6 O2 Saturation 96 ABG pH 7.40 ABG pCO2 62 H* ABG pO2 149 H ABG HCO3 38 H ABG O2 Content 15.1 ABG Base Excess 12.5 H ABG Methemoglobin 1.4 Dave Test Present Hemoglobin 11.0 L Carboxyhemoglobin 1.8 O2 Delivery Device Ventilator Vent Setting Prvc/ac Inspired O2 50 Critical Value Yes Sodium Potassium Chloride Carbon Dioxide Anion Gap BUN Creatinine Estimated GFR POC Glucose 150 H Random Glucose Calcium Magnesium St C. diff Tox Epid 027 C. difficile Tox (PCR) Result Diagrams: 11/20/17 08:18 11/20/17 08:18 Microbiology: Microbiology 11/16/17 11:03 Aerobic Blood Culture - Preliminary Blood - Peripheral No growth in 4 days Anaerobic Blood Culture - Preliminary No growth in 4 days 11/16/17 11:13 Aerobic Blood Culture - Preliminary Blood - Peripheral No growth in 4 days Anaerobic Blood Culture - Preliminary No growth in 4 days Imaging: Impressions Chest X-Ray 11/20/17 09:45 CONCLUSION: Diffuse left-sided edema versus pneumonia. The findings are similar to the prior exam. 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 Right middle lobe 2.7 x 2.2 x 7's. Spiculated. Left lingula is 3.4 x 3.20 cm. COPD (2) SVT (supraventricular tachycardia) (3) Lung mass Comment: revealed 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 Right middle lobe 2.7 x 2.2 x 7's. Spiculated. Left lingula is 3.4 x 3.20 cm. 1st biopsy did not show malignancy. 2nd biopsy on hold to risk of decompensation. Pulmonlogy advise against 2nd biopsy given risk. Recommends repeat CT in 4 weeks. If mass decrease in size, more possiblility its infections rather than malignancy. (4) Diabetes (5) Gout (6) Spinal stenosis Pertinent Non-Medical Issues: Psychosocial: Retired. He was living at home with his Tommie Gutierrez and his son "Cristina Palmer. . Speaks Mandarin. Spiritual: unk at this time Legal: Per [place] statutes legal decision maker proxy is pt's . She defers to son Humble in major decisions, but does participate in medical decision and family meetings. Family works together Ethical issues impacting care: no issues identified Important Contacts: Spencer Reilly [phone] Son "Cristina Palmer [phone] Prognosis: 77 yo underlying diastolic heart failure, severe spinal stenosis (s/p surgery) , lung disease and DM. Lung mass/nodule from recent CT(10/30) has decrease in size, so unlikely malignancy, despite no 2nd biopsy. Pt has made more progress neurologically, can move both arms above head on commands, and can move both feet on command. He is also getting less confused. Code Status: Alternative Code Plan: CODE STATUS - Alternate code. Yes to intubation and mechanical ventilation. no to cpr/ shock/ acls drugs. Capacity- he does not appears to be able to weigh the risk and benefits of decision on my visit. At times agitated and still fluctuates between drowsiness and alert ness. LEGAL DECISION MAKER - per [place] statutes is proxy , who defers decisions to son, Humble, family all working together. GOALS OF CARE Family meetings- multiple family meetings ongoing with palliative, hospice. Met again w family today at length (, son Humble) . Patient urgently transferred to ICU on mechanical vent. They are expressing comfort oriented goals. They wish to proceed with hospice enrollment and withdrawal from mechanical vent. They would like to do this probably sometime tomorrow, after sister has arrived from out of state. In the meantime they wish to continue ventilator, and other noninvasive supportive treatments i.e. pressors however would not want any further invasive measures be done. They want comfort medications if possible. They want no cardiac resuscitation. Plan is to either withdrawal off mechanical vent here and transition to care center or possibly withdrawal at a care center tomorrow 11/21/17. Of note, patient later developed chest pain around 4 PM, she has a known cardiac condition, so she herself is being evaluated/treated in our ED, outcome at this time not known. son is with her in the ED SYMPTOMS * shortness of breath -. Questionable malignancy, hx remote TB. Status post tracheostomy. risk of decompensation. Worsening respiratory status earlier today. Transferred to ICU, now on mechanical vent. at time of my exam, mildly tachypneic, some air leak around trach. Medical attending to add low-dose prn comfort medications Ativan, morphine * pain - ?cause? presented with right side and thoracic pain. imaging showing lung nodules. buttock wound. BX benign, ?repeat. no apparent pain today, less responsive. Medical attending to add low-dose prn comfort medications Ativan, morphine Palliative care will continue to follow during hospital course as condition evolves to assist patient/decision maker with understanding of medical conditions, benefits/burdens of treatment options, clarification of goals of treatment, and will assist with symptoms of palliative concern. Time Spent Total Floor Time (mins): 55 (Chart review, PE, extensive discussion with family , discussion with attending, nurse) Attestation Attestation: To help prompt me to consider important information that might be impacting today's encounter and assessment, information from prior notes written by myself or my colleagues may have been "brought forward" into today's note. My signature on this note, however, is an attestation that I personally performed the exam, history, and/or decision-making noted today, and, unless otherwise indicated, the interactions with patient, family, and staff as well as the review of records all occurred today. I also attest that the listed assessment and stated plan reflect my best clinical judgment today based on the combination of historical information, prior notes, and today's exam/ interactions. When time spent is documented, it refers only to time spent today by the signer, or if indicated, combined time spent today by collaborating physician/nurse practitioner.
[2017-11-21] MEDS: Insulin NovoLOG Aspart Correctional Sugar Inj SQ SCH ×3 (00:16→13:06)
[2017-11-21] MEDS: Oral Hygiene Kit OROPHARYNG SCH ×2 (03:47→13:06)
[2017-11-21] MEDS: Piperacil/Tazo 4.5 GM Premix 4.5 GM/100 ML BAG IV.SIG SCH ×2 (05:52→13:06)
[2017-11-21] MEDS: Chlorhexidine 0.12% Oral Kit 15 ML UDC OROPHARYNG SCH ×2 (08:05→20:03)
[2017-11-21] MEDS: Lactobacillus Acidophilus/L. Spores Tablet G-TUBE SCH ×2 (08:05→13:06)
[2017-11-21] MEDS: Furosemide 20 MG Tablet PO SCH (08:06)
[2017-11-21] MEDS: Enoxaparin Inj 40 MG/0.4 ML Syringe SQ SCH (08:06)
[2017-11-21] MEDS: Insulin Detemir Inj 1,000 UNIT/10 ML Vial SQ SCH (08:06)
[2017-11-21] MEDS: Metoprolol Tartrate 25 MG Tablet NG/OG SCH (08:06)
[2017-11-21] MEDS: Lisinopril 5 MG Tablet PO SCH (08:07)
[2017-11-21] MEDS: QUEtiapine 25 MG Tablet NG/OG SCH ×2 (08:08→21:57)
--- NOTE | 2017-11-21 09:39 | P.PNIM ---
Subjective Interval history: Non verbal. No distress today. No signs of pain. Physical Exam Vital signs: Vital Signs 11/20/17 12:00 11/20/17 13:36 11/20/17 13:43 Temperature 98.7 F Pulse Rate 91 H 106 H Respiratory Rate 23 17 0 L Blood Pressure 133/73 Pulse Oximetry 97 100 98 11/20/17 13:45 11/20/17 14:00 11/20/17 14:15 Temperature Pulse Rate 108 H 106 H 102 H Respiratory Rate 0 L 25 H 20 Blood Pressure 104/51 L 104/60 97/54 L Pulse Oximetry 99 100 99 11/20/17 14:30 11/20/17 14:45 11/20/17 14:46 Temperature Pulse Rate 97 H 97 H 99 H Respiratory Rate 18 21 26 H Blood Pressure 92/53 L 71/43 L 84/53 L Pulse Oximetry 98 98 98 11/20/17 15:00 11/20/17 15:15 11/20/17 15:18 Temperature Pulse Rate 100 H 97 H 97 H Respiratory Rate 20 19 17 Blood Pressure 84/54 L 79/52 L 82/53 L Pulse Oximetry 98 98 99 11/20/17 15:30 11/20/17 15:31 11/20/17 15:45 Temperature Pulse Rate 99 H 97 H 97 H Respiratory Rate 21 29 H 19 Blood Pressure 78/52 L 83/54 L 83/50 L Pulse Oximetry 98 98 98 11/20/17 15:46 11/20/17 16:00 11/20/17 16:03 Temperature 97.6 F Pulse Rate 98 H 96 H Respiratory Rate 15 18 18 Blood Pressure 87/51 L 82/51 L Pulse Oximetry 99 99 98 11/20/17 16:06 11/20/17 20:00 11/20/17 20:12 Temperature Pulse Rate 96 H 93 H 93 H Respiratory Rate 15 15 19 Blood Pressure 83/50 L 105/58 L Pulse Oximetry 99 99 100 11/21/17 00:00 11/21/17 00:11 11/21/17 04:00 Temperature 98.1 F 98.5 F Pulse Rate 92 H 96 H Respiratory Rate 15 21 15 Blood Pressure 108/61 126/74 Pulse Oximetry 100 99 100 11/21/17 08:39 Temperature Pulse Rate 93 H Respiratory Rate 18 Blood Pressure Pulse Oximetry Intake & Output 11/20/17 11/21/17 11/21/17 18:59 06:59 18:59 Intake Total 100 / 100 200 / 200 Output Total 650 / 650 650 / 650 Balance -550 / -550 -450 / -450 Weight 70 kg Intake: IV 100 / 100 200 / 200 Zosyn 4.5 GM Premix 4.5 gm In 100 / 100 200 / 200 100 ml @ 200 mls/hr IV.SIG Q8HR [facility] Rx#:[id number] Output: Urine 250 / 250 550 / 550 Stool 400 / 400 100 / 100 Other: Date of Last Bowel Movement 11/19/17 11/19/17 Narrative: GENERAL: NAD, A&Ox0, nonverbal HEAD: Normocephalic. NECK: Supple, trachea midline. No lymphadenopathy. Tracheostomy present. EYES: No scleral icterus. No injection or drainage. CARDIOVASCULAR: Regular rate and rhythm without murmurs, gallops, or rubs. RESPIRATORY: Breath sounds equal bilaterally. No accessory muscle use. Upper respiratory rhonchi. GASTROINTESTINAL: Abdomen soft, non-tender, nondistended. No erythema at tube feed site. MUSCULOSKELETAL: No cyanosis, or edema. SKIN: Warm and dry. NEURO: Global neurological deficits. - Urinary Catheter Management Indwelling Urethral Catheter Cath placed during this visit: yes, but has since been removed by the nurse Urethral indwelling: Yes Reason for continuing: Decision to DC catheter Insertion date: 08/20/17 Insertion time: 17:00 Removal date: 11/19/17 Removal time: 15:20 Results - Labs CBC & Chem 7: 11/20/17 08:18 11/20/17 08:18 Laboratory Results - last 24 hr 11/20/17 11/20/17 11/20/17 12:09 13:34 17:19 Puncture Site Right radial Patient Temperature 98.6 O2 Saturation 96 ABG pH 7.40 ABG pCO2 62 H* ABG pO2 149 H ABG HCO3 38 H ABG O2 Content 15.1 ABG Base Excess 12.5 H ABG Methemoglobin 1.4 Dave Test Present Hemoglobin 11.0 L Carboxyhemoglobin 1.8 O2 Delivery Device Ventilator Vent Setting Prvc/ac Inspired O2 50 Critical Value Yes POC Glucose 150 H 131 H 11/21/17 11/21/17 00:14 06:03 Puncture Site Patient Temperature O2 Saturation ABG pH ABG pCO2 ABG pO2 ABG HCO3 ABG O2 Content ABG Base Excess ABG Methemoglobin Dave Test Hemoglobin Carboxyhemoglobin O2 Delivery Device Vent Setting Inspired O2 Critical Value POC Glucose 131 H 134 H Microbiology 11/16/17 11:03 Blood - Peripheral Aerobic Blood Culture - Preliminary No growth in 4 days 11/16/17 11:03 Blood - Peripheral Anaerobic Blood Culture - Preliminary No growth in 4 days 11/16/17 11:13 Blood - Peripheral Aerobic Blood Culture - Preliminary No growth in 4 days 11/16/17 11:13 Blood - Peripheral Anaerobic Blood Culture - Preliminary No growth in 4 days - Imaging Impressions Chest X-Ray 11/20/17 09:45 CONCLUSION: Diffuse left-sided edema versus pneumonia. The findings are similar to the prior exam. - Procedures 08/23- intubation 09/03- bronchoscopy, lung biopsy, thoracentesis 09/08- tracheostomy 09/11- PEG placement s/p C2 hemicolectomy, C3 through C5 laminoplasty Assessment and Plan - Plan 77-year-old man with a medical history significant for hypertension, gout, diabetes who initially presented with pain in his groin and back. CT angiogram showed bilateral emphysema and pulmonary nodules with compressive atelectasis of right lower lobe. Patient underwent a biopsy which showed chronic inflammation, and reactive fibroblastic tissue. He was also found to have significant spinal stenosis and underwent a laminectomy by neurosurgery. The patient's hospital stay was complicated by septic shock secondary to hospital- acquired pneumonia and C. difficile. 10/19: Patient desat to 85%. Patient was lavaged and suctioned by respiratory, moderate amount of mucous removed in addition to a blue liquid. Patient was bagged to trach, saturated at 100%, then transitioned back to trach and patient saturated at 98% on 40%FI02. He was notably more comfortable. Desat likely due to mucous plug or from whatever he was given by mouth. (Noted to have passed his swallow eval). No acute changes overnight. No distress when seen. Tolerating antibiotics. Acute Respiratory Failure History of COPD Chronic respiratory failure Chronic tracheostomy Lung masses, infection suspected due to graduating resolution Further biopsy none option Continue tracheostomy care Continue oxygen supplementation Vent support if needed Hospital Acquired Pneumonia Pseudomonas, Citrobacter Continue Zosyn until 11/22/17 CHF Continue aspirin Continue metoprolol Continue Digoxin Continue Lisinopril Severe cervical spinal stenosis Status post C2 hemicolectomy, C3 through C5 laminoplasty quadriplegia acute spinal injury Poor chance for neurological recovery per neurosurgery Patient son desires no further neurological interventions Continue to monitor neurological status Hypertension Coronary artery disease History of A. fib Continue metoprolol Continue digoxin Follow blood pressures Encephalopathy Severe Cervical Spine Stenosis Continue supportive care Monitor for improvement Restraints as needed to prevent self-harm -MRI C-spine 09/15: Focal severe spinal canal stenosis at C4-5. And otherwise moderate changes on other levels -s/p C2 hemicolectomy, C3 through C5 laminoplasty with quadriplegia and acute spinal injury -Head CT 08/23: 2 questionable tiny focal hemorrhages. -MRI of brain 08/26 chronic small vessel ischemic and atrophic changes. -EEG 09/03 revealed severe encephalopathy. No epileptiform activity Severe malnutrition Continue tube feeds Nutrition following Continue probiotics Urinary retention Larson placed 08/20/2017 Change Larson catheter every 4-6 weeks Diabetes mellitus type 2 Follow blood sugars Insulin sliding scale Diabetic diet Lantus 5 units bid Severe Sepsis: resolved Trach Site infection: Resolved C. Diff colitis: resolved DVT proph SCDs & Lovenox
--- NOTE | 2017-11-21 11:52 | P.PN ---
Subjective Interval history: Awake and assists the vent today. On FIo2 40% Family has decided on withdrawal of vent support and comfort care. Physical Exam Vital signs: Vital Signs 11/20/17 12:00 11/20/17 13:36 11/20/17 13:43 Temperature 98.7 F Pulse Rate 91 H 106 H Respiratory Rate 23 17 0 L Blood Pressure 133/73 Pulse Oximetry 97 100 98 11/20/17 13:45 11/20/17 14:00 11/20/17 14:15 Temperature Pulse Rate 108 H 106 H 102 H Respiratory Rate 0 L 25 H 20 Blood Pressure 104/51 L 104/60 97/54 L Pulse Oximetry 99 100 99 11/20/17 14:30 11/20/17 14:45 11/20/17 14:46 Temperature Pulse Rate 97 H 97 H 99 H Respiratory Rate 18 21 26 H Blood Pressure 92/53 L 71/43 L 84/53 L Pulse Oximetry 98 98 98 11/20/17 15:00 11/20/17 15:15 11/20/17 15:18 Temperature Pulse Rate 100 H 97 H 97 H Respiratory Rate 20 19 17 Blood Pressure 84/54 L 79/52 L 82/53 L Pulse Oximetry 98 98 99 11/20/17 15:30 11/20/17 15:31 11/20/17 15:45 Temperature Pulse Rate 99 H 97 H 97 H Respiratory Rate 21 29 H 19 Blood Pressure 78/52 L 83/54 L 83/50 L Pulse Oximetry 98 98 98 11/20/17 15:46 11/20/17 16:00 11/20/17 16:03 Temperature 97.6 F Pulse Rate 98 H 96 H Respiratory Rate 15 18 18 Blood Pressure 87/51 L 82/51 L Pulse Oximetry 99 99 98 11/20/17 16:06 11/20/17 20:00 11/20/17 20:12 Temperature Pulse Rate 96 H 93 H 93 H Respiratory Rate 15 15 19 Blood Pressure 83/50 L 105/58 L Pulse Oximetry 99 99 100 11/20/17 23:00 18 23:30 11/21/17 00:00 Temperature 98.1 F Pulse Rate 97 H 93 H 92 H Respiratory Rate 18 9 L 10 L Blood Pressure 88/51 L 97/54 L 95/58 L Pulse Oximetry 97 97 99 11/21/17 00:11 11/21/17 00:30 11/21/17 01:00 Temperature Pulse Rate 100 H 88 Respiratory Rate 21 22 2 L Blood Pressure 108/61 95/52 L Pulse Oximetry 99 97 98 11/21/17 01:30 11/21/17 02:00 11/21/17 02:30 Temperature Pulse Rate 97 H 93 H 90 Respiratory Rate 6 L 8 L 3 L Blood Pressure 109/67 109/65 98/59 L Pulse Oximetry 98 98 99 11/21/17 03:00 11/21/17 03:30 11/21/17 04:00 Temperature 98.5 F Pulse Rate 89 95 H 97 H Respiratory Rate 0 L 4 L 12 Blood Pressure 103/60 114/65 118/69 Pulse Oximetry 99 98 98 11/21/17 04:30 11/21/17 05:00 11/21/17 05:30 Temperature Pulse Rate 97 H 94 H 97 H Respiratory Rate 11 L 7 L 0 L Blood Pressure 122/69 114/71 129/71 Pulse Oximetry 98 98 98 11/21/17 06:00 11/21/17 06:30 11/21/17 07:00 Temperature Pulse Rate 96 H 96 H 99 H Respiratory Rate 5 L 5 L 7 L Blood Pressure 120/71 126/74 116/71 Pulse Oximetry 98 98 99 11/21/17 07:30 11/21/17 08:00 11/21/17 08:30 Temperature 99.2 F Pulse Rate 99 H 99 H 96 H Respiratory Rate 4 L 3 L 4 L Blood Pressure 116/70 113/77 120/65 Pulse Oximetry 98 98 97 11/21/17 08:39 11/21/17 09:00 11/21/17 09:06 Temperature Pulse Rate 93 H 87 87 Respiratory Rate 18 18 17 Blood Pressure 76/51 L 85/52 L Pulse Oximetry 97 98 11/21/17 09:31 11/21/17 10:00 11/21/17 10:30 Temperature Pulse Rate 87 85 83 Respiratory Rate 11 L 10 L 14 Blood Pressure 95/58 L 85/53 L 103/60 Pulse Oximetry 99 99 100 Intake & Output 11/20/17 11/21/17 11/21/17 18:59 06:59 18:59 Intake Total 100 / 100 200 / 200 Output Total 650 / 650 650 / 650 Balance -550 / -550 -450 / -450 Weight 70 kg Intake: IV 100 / 100 200 / 200 Zosyn 4.5 GM Premix 4.5 gm In 100 / 100 200 / 200 100 ml @ 200 mls/hr IV.SIG Q8HR [facility] Rx#:[id number] Output: Urine 250 / 250 550 / 550 Stool 400 / 400 100 / 100 Other: Date of Last Bowel Movement 11/19/17 11/19/17 11/19/17 Narrative: GENERAL: NAD, A&Ox0, nonverbal and on the vent. HEAD: Normocephalic. NECK: Supple, trachea midline. No lymphadenopathy. Tracheostomy present. EYES: No scleral icterus. No injection or drainage. CARDIOVASCULAR: Regular rate and rhythm without murmurs, gallops, or rubs. RESPIRATORY: Breath sounds equal bilaterally. No accessory muscle use. Upper chest wheeze. GASTROINTESTINAL: Abdomen soft, non-tender, nondistended. No erythema at tube feed site. MUSCULOSKELETAL: No cyanosis, or edema. SKIN: Warm and dry. NEURO: Global neurological deficits. - Urinary Catheter Management Indwelling Urethral Catheter Cath placed during this visit: yes, but has since been removed by the nurse Urethral indwelling: Yes Reason for continuing: Decision to DC catheter Insertion date: 08/20/17 Insertion time: 17:00 Removal date: 11/19/17 Removal time: 15:20 Results - Labs CBC & Chem 7: 11/20/17 08:18 11/20/17 08:18 Laboratory Results - last 24 hr 11/20/17 11/20/17 11/20/17 12:09 13:34 17:19 Puncture Site Right radial Patient Temperature 98.6 O2 Saturation 96 ABG pH 7.40 ABG pCO2 62 H* ABG pO2 149 H ABG HCO3 38 H ABG O2 Content 15.1 ABG Base Excess 12.5 H ABG Methemoglobin 1.4 Dave Test Present Hemoglobin 11.0 L Carboxyhemoglobin 1.8 O2 Delivery Device Ventilator Vent Setting Prvc/ac Inspired O2 50 Critical Value Yes POC Glucose 150 H 131 H 11/21/17 11/21/17 11/21/17 00:14 06:03 11:34 Puncture Site Patient Temperature O2 Saturation ABG pH ABG pCO2 ABG pO2 ABG HCO3 ABG O2 Content ABG Base Excess ABG Methemoglobin Dave Test Hemoglobin Carboxyhemoglobin O2 Delivery Device Vent Setting Inspired O2 Critical Value POC Glucose 131 H 134 H 122 H Microbiology 11/16/17 11:03 Blood - Peripheral Aerobic Blood Culture - Final No growth in 5 days 11/16/17 11:03 Blood - Peripheral Anaerobic Blood Culture - Final No growth in 5 days 11/16/17 11:13 Blood - Peripheral Aerobic Blood Culture - Final No growth in 5 days 11/16/17 11:13 Blood - Peripheral Anaerobic Blood Culture - Final No growth in 5 days - Procedures 08/23- intubation 09/03- bronchoscopy, lung biopsy, thoracentesis 09/08- tracheostomy 09/11- PEG placement s/p C2 hemicolectomy, C3 through C5 laminoplasty Assessment and Plan - Assessment (1) Cervical myelopathy Code(s): G95.9 - Disease of spinal cord, unspecified Status: Acute (2) Respiratory failure Code(s): J96.90 - Respiratory failure, unspecified, unspecified whether with hypoxia or hypercapnia Status: Acute (3) SVT (supraventricular tachycardia) Code(s): I47.1 - Supraventricular tachycardia Status: Acute (4) Lung mass Code(s): R91.8 - Other nonspecific abnormal finding of lung field Status: Acute (5) Diabetes Code(s): E11.9 - Type 2 diabetes mellitus without complications Status: Acute (6) Gout Code(s): M10.9 - Gout, unspecified Status: Acute (7) Spinal stenosis Code(s): M48.00 - Spinal stenosis, site unspecified Status: Acute (8) Dyspnea Code(s): R06.00 - Dyspnea, unspecified Status: Acute - Plan 1. Transfer to ICU on vent support 2. Trach lavage and suction PRN 3. Cont Duoneb nebs qid. 4. Vent support FIO2 35 % 5. Tube feeds at 60CC 6. Ativan 1 mg IV Q6H PRN 7. D/W nurse here 8. Will have vent withdrawn in am .
--- NOTE | 2017-11-21 12:31 | P.PNPAL ---
Reason for Visit Reason for visit: a. To assist with evaluation and management of symptoms including: dyspnea b. To assist medical decision maker(s) with: better understanding of current medical conditions; weighing benefits/burdens of medical treatment options; making medical treatment decisions. Subjective Subjective/Interval History: Pt on mechanical ventilation. Pt eyes open, follow some commands, but has confusion. Bouts of dyspnea at times. Pt's daughter and son at bedside. Family/Friend Interactions: [employer] has been used for translation. Met with the son and mother. Spoke extensively with family ==Exhibits B and C completed. == Family for cultural/ethno-episcopal reasons wish for the patient to be withdrawn in the morning. therefore transition to comfort care off life support will not be today, but tomorrow at 5:00am == They also wish for cultural reasons for trach to be pulled. this has been reviewed with medical/nursing/resp therapist. They will try to pull it, if not it will be capped. == pt's family have change patient to his own clothing and wish for him to remain in that clothing. ==This was discussed with hospice and medical team, with attending. with Nursing team, Hospice team. == Hospice will touch base with family and help with question about . == plan is to withdraw tomorrow at 5:00AM. Advance Directives Living Will: Never completed Health Care Surrogate: Never completed Durable Power of Boiler Technician: Never completed Significant change in goals:: Hospice and withdrawl in the hospital tomorrow. Objective Vital Signs: Vital Signs 11/20/17 13:36 11/20/17 13:43 11/20/17 13:45 Temperature Pulse Rate 106 H 108 H Respiratory Rate 17 0 L 0 L Blood Pressure 104/51 L Pulse Oximetry 100 98 99 11/20/17 14:00 11/20/17 14:15 11/20/17 14:30 Temperature Pulse Rate 106 H 102 H 97 H Respiratory Rate 25 H 20 18 Blood Pressure 104/60 97/54 L 92/53 L Pulse Oximetry 100 99 98 11/20/17 14:45 11/20/17 14:46 11/20/17 15:00 Temperature Pulse Rate 97 H 99 H 100 H Respiratory Rate 21 26 H 20 Blood Pressure 71/43 L 84/53 L 84/54 L Pulse Oximetry 98 98 98 11/20/17 15:15 11/20/17 15:18 11/20/17 15:30 Temperature Pulse Rate 97 H 97 H 99 H Respiratory Rate 19 17 21 Blood Pressure 79/52 L 82/53 L 78/52 L Pulse Oximetry 98 99 98 11/20/17 15:31 11/20/17 15:45 11/20/17 15:46 Temperature Pulse Rate 97 H 97 H 98 H Respiratory Rate 29 H 19 15 Blood Pressure 83/54 L 83/50 L 87/51 L Pulse Oximetry 98 98 99 11/20/17 16:00 11/20/17 16:03 11/20/17 16:06 Temperature 97.6 F Pulse Rate 96 H 96 H Respiratory Rate 18 18 15 Blood Pressure 82/51 L 83/50 L Pulse Oximetry 99 98 99 11/20/17 20:00 11/20/17 20:12 11/20/17 23:00 Temperature Pulse Rate 93 H 93 H 97 H Respiratory Rate 15 19 18 Blood Pressure 105/58 L 88/51 L Pulse Oximetry 99 100 97 11/20/17 23:30 11/21/17 00:00 11/21/17 00:11 Temperature 98.1 F Pulse Rate 93 H 92 H Respiratory Rate 9 L 10 L 21 Blood Pressure 97/54 L 95/58 L Pulse Oximetry 97 99 99 11/21/17 00:30 11/21/17 01:00 11/21/17 01:30 Temperature Pulse Rate 100 H 88 97 H Respiratory Rate 22 2 L 6 L Blood Pressure 108/61 95/52 L 109/67 Pulse Oximetry 97 98 98 11/21/17 02:00 11/21/17 02:30 11/21/17 03:00 Temperature Pulse Rate 93 H 90 89 Respiratory Rate 8 L 3 L 0 L Blood Pressure 109/65 98/59 L 103/60 Pulse Oximetry 98 99 99 11/21/17 03:30 11/21/17 04:00 11/21/17 04:30 Temperature 98.5 F Pulse Rate 95 H 97 H 97 H Respiratory Rate 4 L 12 11 L Blood Pressure 114/65 118/69 122/69 Pulse Oximetry 98 98 98 11/21/17 05:00 11/21/17 05:30 11/21/17 06:00 Temperature Pulse Rate 94 H 97 H 96 H Respiratory Rate 7 L 0 L 5 L Blood Pressure 114/71 129/71 120/71 Pulse Oximetry 98 98 98 11/21/17 06:30 11/21/17 07:00 11/21/17 07:30 Temperature Pulse Rate 96 H 99 H 99 H Respiratory Rate 5 L 7 L 4 L Blood Pressure 126/74 116/71 116/70 Pulse Oximetry 98 99 98 11/21/17 08:00 11/21/17 08:30 11/21/17 08:39 Temperature 99.2 F Pulse Rate 99 H 96 H 93 H Respiratory Rate 3 L 4 L 18 Blood Pressure 113/77 120/65 Pulse Oximetry 98 97 11/21/17 09:00 11/21/17 09:06 11/21/17 09:31 Temperature Pulse Rate 87 87 87 Respiratory Rate 18 17 11 L Blood Pressure 76/51 L 85/52 L 95/58 L Pulse Oximetry 97 98 99 11/21/17 10:00 11/21/17 10:30 11/21/17 11:00 Temperature Pulse Rate 85 83 85 Respiratory Rate 10 L 14 18 Blood Pressure 85/53 L 103/60 96/59 L Pulse Oximetry 99 100 100 11/21/17 11:30 11/21/17 12:00 Temperature 97.6 F Pulse Rate 85 87 Respiratory Rate 15 10 L Blood Pressure 101/59 L 101/60 Pulse Oximetry 100 98 Intake & Output 11/20/17 11/21/17 11/21/17 18:59 06:59 18:59 Intake Total 100 / 100 200 / 200 Output Total 650 / 650 650 / 650 Balance -550 / -550 -450 / -450 Weight 70 kg Intake: IV 100 / 100 200 / 200 Zosyn 4.5 GM Premix 4.5 gm In 100 / 100 200 / 200 100 ml @ 200 mls/hr IV.SIG Q8HR [facility] Rx#:[id number] Output: Urine 250 / 250 550 / 550 Stool 400 / 400 100 / 100 Other: Date of Last Bowel Movement 11/19/17 11/19/17 11/19/17 Physical Exam: CONSTITUTIONAL/GENERAL: This is an adequately nourished patient , tracheostomy to vent, lethargic, open eyes breifly TUBES/LINES/DRAINS: Tracheostomy to vent , ceja, PIV x2 BUE, SKIN: No jaundice, rashes, or lesions. No wounds seen anteriorly. skin warm/ dry EYES: Eyes open seems to be tracking family. Pupils equal and reactive.. No injection or drainage. Fundi not examined. ENT: Nose without bleeding or purulent drainage. Mouth closed did not open for exam. CARDIOVASCULAR: RRR without murmurs. No JVD. Peripheral pulses symmetric. Trace periph edema to hands. RESPIRATORY/CHEST: Mildly tachypneic, mildly labored respirations from trach to mechanical vent. Coarse rhonchi. Diminished sounds bases. Breath sounds equal bilaterally. GASTROINTESTINAL: Abdomen soft, non-tender, nondistended. No hepato-splenomegaly , or palpable masses. Bowel sounds present. TF infusing peg MUSCULOSKELETAL: Trace +BUE edema. No mottling or clubbing. NEUROLOGICAL: Lethargic, minimally responds to my exam. Eyes open at times. Seems to track family members, seems to respond more to them grasps their hands with his. PSYCH: At times anxious with dyspnea, intermittently. Diagnostic Tests Laboratory: Laboratory Results - last 72 hr 11/18/17 11/19/17 11/19/17 18:57 00:29 05:40 WBC RBC Hgb Hct MCV MCH MCHC RDW Plt Count MPV Neut % (Auto) Lymph % (Auto) [place] % (Auto) Eos % (Auto) Baso % (Auto) Neut # (Auto) Lymph # (Auto) [place] # (Auto) Eos # (Auto) Baso # (Auto) WBC Differential Differential Comment Puncture Site Patient Temperature O2 Saturation ABG pH ABG pCO2 ABG pO2 ABG HCO3 ABG O2 Content ABG Base Excess ABG Methemoglobin Dave Test Hemoglobin Carboxyhemoglobin O2 Delivery Device Vent Setting Inspired O2 Critical Value Sodium Potassium Chloride Carbon Dioxide Anion Gap BUN Creatinine Estimated GFR POC Glucose 157 H 131 H 126 H Random Glucose Calcium Magnesium St C. diff Tox Epid 027 C. difficile Tox (PCR) 11/19/17 11/19/17 11/19/17 08:39 09:37 09:37 WBC 12.3 H RBC 3.49 L Hgb 10.6 L Hct 32.9 L MCV 94.1 MCH 30.3 MCHC 32.2 RDW 18.3 H Plt Count 218 MPV 7.6 Neut % (Auto) 82.8 H Lymph % (Auto) 8.3 L [place] % (Auto) 7.2 Eos % (Auto) 1.3 Baso % (Auto) 0.4 Neut # (Auto) 10.2 H Lymph # (Auto) 1.0 [place] # (Auto) 0.9 Eos # (Auto) 0.2 Baso # (Auto) 0.0 WBC Differential . Differential Comment Auto diff final Puncture Site Patient Temperature O2 Saturation ABG pH ABG pCO2 ABG pO2 ABG HCO3 ABG O2 Content ABG Base Excess ABG Methemoglobin Dave Test Hemoglobin Carboxyhemoglobin O2 Delivery Device Vent Setting Inspired O2 Critical Value Sodium 145 Potassium 3.4 L Chloride 99 Carbon Dioxide 37.4 H Anion Gap 9 BUN 21 H Creatinine 0.55 L Estimated GFR Greater than 89 POC Glucose 156 H Random Glucose 132 H Calcium 8.[address] C. diff Tox Epid 027 C. difficile Tox (PCR) 11/19/17 11/19/17 11/19/17 09:37 12:40 12:41 WBC RBC Hgb Hct MCV MCH MCHC RDW Plt Count MPV Neut % (Auto) Lymph % (Auto) [place] % (Auto) Eos % (Auto) Baso % (Auto) Neut # (Auto) Lymph # (Auto) [place] # (Auto) Eos # (Auto) Baso # (Auto) WBC Differential Differential Comment Puncture Site Patient Temperature O2 Saturation ABG pH ABG pCO2 ABG pO2 ABG HCO3 ABG O2 Content ABG Base Excess ABG Methemoglobin Dave Test Hemoglobin Carboxyhemoglobin O2 Delivery Device Vent Setting Inspired O2 Critical Value Sodium Potassium Chloride Carbon Dioxide Anion Gap BUN Creatinine Estimated GFR POC Glucose 133 H Random Glucose Calcium Magnesium 2.5 St C. diff Tox Epid 027 Negative C. difficile Tox (PCR) Negative 11/19/17 11/20/17 11/20/17 16:54 00:07 05:21 WBC RBC Hgb Hct MCV MCH MCHC RDW Plt Count MPV Neut % (Auto) Lymph % (Auto) [place] % (Auto) Eos % (Auto) Baso % (Auto) Neut # (Auto) Lymph # (Auto) [place] # (Auto) Eos # (Auto) Baso # (Auto) WBC Differential Differential Comment Puncture Site Patient Temperature O2 Saturation ABG pH ABG pCO2 ABG pO2 ABG HCO3 ABG O2 Content ABG Base Excess ABG Methemoglobin Dave Test Hemoglobin Carboxyhemoglobin O2 Delivery Device Vent Setting Inspired O2 Critical Value Sodium Potassium Chloride Carbon Dioxide Anion Gap BUN Creatinine Estimated GFR POC Glucose 143 H 196 H 136 H Random Glucose Calcium Magnesium St C. diff Tox Epid 027 C. difficile Tox (PCR) 11/20/17 11/20/17 11/20/17 08:18 08:18 12:09 WBC 9.0 RBC 3.15 L Hgb 9.5 L Hct 29.7 L MCV 94.3 MCH 30.3 MCHC 32.1 RDW 18.1 H Plt Count 207 MPV 7.3 Neut % (Auto) 79.3 H Lymph % (Auto) 7.3 L [place] % (Auto) 8.2 H Eos % (Auto) 4.4 H Baso % (Auto) 0.8 Neut # (Auto) 7.1 Lymph # (Auto) 0.7 L [place] # (Auto) 0.7 Eos # (Auto) 0.4 Baso # (Auto) 0.1 WBC Differential . Differential Comment Auto diff final Puncture Site Patient Temperature O2 Saturation ABG pH ABG pCO2 ABG pO2 ABG HCO3 ABG O2 Content ABG Base Excess ABG Methemoglobin Dave Test Hemoglobin Carboxyhemoglobin O2 Delivery Device Vent Setting Inspired O2 Critical Value Sodium 145 Potassium 3.5 Chloride 101 Carbon Dioxide 37.5 H Anion Gap 7 BUN 23 H Creatinine 0.56 L Estimated GFR Greater than 89 POC Glucose 150 H Random Glucose 135 H Calcium 8.[address] C[address] diff Tox Epid 027 C. difficile Tox (PCR) 11/20/17 11/20/17 11/21/17 13:34 17:19 00:14 WBC RBC Hgb Hct MCV MCH MCHC RDW Plt Count MPV Neut % (Auto) Lymph % (Auto) [place] % (Auto) Eos % (Auto) Baso % (Auto) Neut # (Auto) Lymph # (Auto) [place] # (Auto) Eos # (Auto) Baso # (Auto) WBC Differential Differential Comment Puncture Site Right radial Patient Temperature 98.6 O2 Saturation 96 ABG pH 7.40 ABG pCO2 62 H* ABG pO2 149 H ABG HCO3 38 H ABG O2 Content 15.1 ABG Base Excess 12.5 H ABG Methemoglobin 1.4 Dave Test Present Hemoglobin 11.0 L Carboxyhemoglobin 1.8 O2 Delivery Device Ventilator Vent Setting Prvc/ac Inspired O2 50 Critical Value Yes Sodium Potassium Chloride Carbon Dioxide Anion Gap BUN Creatinine Estimated GFR POC Glucose 131 H 131 H Random Glucose Calcium Magnesium St C. diff Tox Epid 027 C. difficile Tox (PCR) 11/21/17 11/21/17 06:03 11:34 WBC RBC Hgb Hct MCV MCH MCHC RDW Plt Count MPV Neut % (Auto) Lymph % (Auto) [place] % (Auto) Eos % (Auto) Baso % (Auto) Neut # (Auto) Lymph # (Auto) [place] # (Auto) Eos # (Auto) Baso # (Auto) WBC Differential Differential Comment Puncture Site Patient Temperature O2 Saturation ABG pH ABG pCO2 ABG pO2 ABG HCO3 ABG O2 Content ABG Base Excess ABG Methemoglobin Dave Test Hemoglobin Carboxyhemoglobin O2 Delivery Device Vent Setting Inspired O2 Critical Value Sodium Potassium Chloride Carbon Dioxide Anion Gap BUN Creatinine Estimated GFR POC Glucose 134 H 122 H Random Glucose Calcium Magnesium St C. diff Tox Epid 027 C. difficile Tox (PCR) Result Diagrams: 11/20/17 08:18 11/20/17 08:18 Microbiology: Microbiology 11/16/17 11:03 Aerobic Blood Culture - Final Blood - Peripheral No growth in 5 days Anaerobic Blood Culture - Final No growth in 5 days 11/16/17 11:13 Aerobic Blood Culture - Final Blood - Peripheral No growth in 5 days Anaerobic Blood Culture - Final No growth in 5 days Imaging: ITS Impressions Cervical Spine X-Ray 09/19/17 00:00 CONCLUSION: Surgical hardware noted posteriorly at the C3-C5 levels. Cervical Spine MRI 09/25/17 00:00 CONCLUSION: 1. Status post laminectomy at the C3-C5 levels. Surgical hardware seen at the posterior elements at these levels. 2. Moderate stenosis at the C4-C5 level secondary to disc bulge and central disc protrusion. There is abnormal signal again seen within the cord. The cord appears small this region. This likely secondary to myelomalacia. 3. Mild to moderate narrowing of the thecal sac at the C5-C6 and C6-C7 level. 4. Neural foraminal narrowing throughout the cervical spine as described above. Abdomen X-Ray 10/12/17 00:00 CONCLUSION: Nonspecific bowel gas pattern as above without significant distention Minimal consolidative changes right base with trace pleural effusion. Chest CT 11/07/17 11:33 CONCLUSION: 1. Chronic emphysematous change. There is also increased interstitial markings throughout the lungs which are likely chronic. 2. Suspected atelectasis in the left lower lobe and the right upper lobe. 3. Bilateral pleural effusions being moderate on the left and mild on the right. 4. Evidence of prior granulomatous exposure. Chest X-Ray 11/20/17 09:45 CONCLUSION: Diffuse left-sided edema versus pneumonia. The findings are similar to the prior exam. 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 Right middle lobe 2.7 x 2.2 x 7's. Spiculated. Left lingula is 3.4 x 3.20 cm. COPD (2) SVT (supraventricular tachycardia) (3) Lung mass Comment: revealed 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 Right middle lobe 2.7 x 2.2 x 7's. Spiculated. Left lingula is 3.4 x 3.20 cm. 1st biopsy did not show malignancy. 2nd biopsy on hold to risk of decompensation. Pulmonlogy advise against 2nd biopsy given risk. Recommends repeat CT in 4 weeks. If mass decrease in size, more possiblility its infections rather than malignancy. (4) Diabetes (5) Gout (6) Spinal stenosis - Symptom Scale (1) Dyspnea 0-10 Scale: Unable to quantify Pertinent Non-Medical Issues: Psychosocial: Retired. He was living at home with his Tommie Gutierrez and his son "Cristina Palmer. . Speaks Mandarin. Spiritual: unk at this time Legal: Per [place] statutes legal decision maker proxy is pt's . She defers to son Humble in major decisions, but does participate in medical decision and family meetings. Family works together Ethical issues impacting care: no issues identified Important Contacts: Spencer Reilly [phone] Son "Cristina Palmer [phone] Prognosis: 77 yo underlying diastolic heart failure, severe spinal stenosis (s/p surgery) , lung disease and DM. Lung mass/nodule from recent CT(10/30) has decrease in size, so unlikely malignancy, despite no 2nd biopsy. Pt has made more progress neurologically, can move both arms above head on commands, and can move both feet on command. He is also getting less confused. Code Status: Alternative Code Plan: CODE STATUS - Alternate code. Yes to intubation and mechanical ventilation. no to cpr/ shock/ acls drugs. Capacity- he does not appears to be able to weigh the risk and benefits of decision on my visit. At times agitated and still fluctuates between drowsiness and alert ness. LEGAL DECISION MAKER - per [place] statutes is proxy , who defers decisions to son, Humble, family all working together. GOALS OF CARE Family meetings- multiple family meetings ongoing with palliative, hospice. Met again w family today at length (, son Humble) . Today (11/21/2017) [employer] has been used for translation. Met with the pt's son and pt's . Spoke extensively with family ==Exhibits B and C completed. == Family for cultural/ethno-episcopal reasons wish for the patient to be withdrawn in the morning. therefore transition to comfort care off life support will not be today, but tomorrow at 5:00am == They also wish for cultural reasons for trach to be pulled. this has been reviewed with medical/nursing/resp therapist. They will try to pull it, if not it will be capped. == pt's family have change patient to his own clothing and wish for him to remain in that clothing. ==This was discussed with hospice and medical team, with attending. with Nursing team, Hospice team. == Hospice will touch base with family and help with question about . == plan is to withdraw tomorrow at 5:00AM. SYMPTOMS * shortness of breath -. COPD hx remote TB. CHF Status post tracheostomy. risk of decompensation. Worsening respiratory status earlier today. Transferred to ICU, now on mechanical vent. at time of my exam, mildly tachypneic, some air leak around trach. Medical attending to add low-dose prn comfort medications Ativan, morphine * pain - ?cause? presented with right side and thoracic pain. imaging showing lung nodules. buttock wound. BX benign, ?repeat. no apparent pain today, less responsive. Medical attending to add low-dose prn comfort medications Ativan, morphine Palliative care will continue to follow during hospital course as condition evolves to assist patient/decision maker with understanding of medical conditions, benefits/burdens of treatment options, clarification of goals of treatment, and will assist with symptoms of palliative concern. Attestation Attestation: To help prompt me to consider important information that might be impacting today's encounter and assessment, information from prior notes written by myself or my colleagues may have been "brought forward" into today's note. My signature on this note, however, is an attestation that I personally performed the exam, history, and/or decision-making noted today, and, unless otherwise indicated, the interactions with patient, family, and staff as well as the review of records all occurred today. I also attest that the listed assessment and stated plan reflect my best clinical judgment today based on the combination of historical information, prior notes, and today's exam/ interactions. When time spent is documented, it refers only to time spent today by the signer, or if indicated, combined time spent today by collaborating physician/nurse practitioner.
[2017-11-21] MEDS ORDERED: Morphine Inj 4 MG/ML Vial IV.PUSH PRN (16:04)
[2017-11-22] MEDS ORDERED: Morphine Sulfate Inj 8 MG/ML Vial IV.PUSH PRN (04:50)
[2017-11-22] MEDS ORDERED: Morphine Inj 4 MG/ML Vial IV.PUSH ONE ×2 (04:50→06:00)
[2017-11-22] MEDS ORDERED: Acetaminophen 650 MG Supp RECTAL PRN (04:50)
[2017-11-22] MEDS ORDERED: Bisacodyl 10 MG Supp RECTAL PRN (04:50)
[2017-11-22] MEDS ORDERED: Hyoscyamine Inj 0.5 MG/ML Ampul IV.PUSH PRN (04:50)
[2017-11-22] MEDS ORDERED: Morphine Sulfate Inj 8 MG/ML Vial IV.PUSH ONE (04:50)
[2017-11-22] MEDS ORDERED: Hyoscyamine Inj 0.5 MG/ML Ampul IV.PUSH ONE (04:50)
--- NOTE | 2017-11-22 05:14 | P.PNPAL ---
Patient currently is a Hospice patient. Plan of time for compassionate withdraw from life support will be 7:30am today. Exhibits have been completed.
[2017-11-22] MEDS: Morphine Inj 4 MG/ML Vial IV.PUSH PRN ×7 (07:24→14:54)
[2017-11-22] MEDS: Morphine Sulfate Inj 8 MG/ML Vial IV.PUSH SCH ×3 (07:37→13:48)
--- NOTE | 2017-11-22 09:08 | P.EN ---
Life support drawn earlier this morning at 7:30. Spoke with nursing. Patient comfortable. Family present at the bedside. Morphine and Ativan orders placed by hospice.
[2017-11-22 09:51] VITALS: PULSE 113; RESP 30
[2017-11-22 12:23] VITALS: BP 66/40; TEMP 99.3; O2SAT 81
[2017-11-22] MEDS ORDERED: Morphine Inj 4 MG/ML Vial IV.PUSH SCH (16:00)
--- NOTE | 2017-11-24 10:32 | P.DN ---
Discharge Sum: Prov - Provider Primary care physician: UNKNOWN Admitting clinician: Boris Amaya Attending physician on admission: Ping Bradley Consults: 09/15/17 09:50 Consult to Neurology Routine Consulting Provider: Reason for Consultation: Quadriplegia 09/16/17 08:52 Consult to Neurosurgery Routine Consulting Provider: Anuj Victor Reason for Consultation: Quadriparesisis Focal severe spinal canal stenosis at C4-5. increased signal within the body of the spinal cord Notified:: Service Spoke with:: vinny Date Notified:: 09/16/17 Time Notified:: 09:02 09/16/17 09:12 Consult to Infectious Diseases Routine Consulting Provider: Kaitlin Baca Reason for Consultation: worsening sepsis, trach site infection Notified:: Service Spoke with:: patricia Date Notified:: 09/16/17 Time Notified:: 09:18 10/05/17 13:37 Consult to Pulmonology Routine Consulting Provider: Ino Cardoso V Reason for Consultation: weaning/decanulation Notified:: Service Spoke with:: GUIDO Date Notified:: 10/05/17 Time Notified:: 14:27 Ordering Provider: IBETH 10/13/17 13:00 Consult to Hospice Routine Consulting Provider: Call Back 11/16/17 10:34 Consult to Cardiology Routine Consulting Provider: Eusebio Pearson Does the patient have a Lotus Notes Administrator who follows them?: No Preferred Director Mobile:: Dust Handler Physician Reason for Consultation: Patient with current sinus tachycardia and associated BNP elevation to 700's. Prior Afib per EMR. Per patient's son, he has not previously had Cardiology evalutation Please evaluate and assist in management as deemed appropriate, thanks Notified:: Service Spoke with:: QUE Date Notified:: 11/16/17 Time Notified:: 10:50 Ordering Provider: NISHA 11/20/17 13:42 Consult to Hospice Stat Consulting Provider: Call Back Comment: Per family request. Pt continues to decline. Just transfered to [facility] , on ventilator. Consult also for critical medicne 08/23/2017. Consult for Pulmonology 08/24/2017 Consult for Neurosurgery for spinal stenosis. Consult for neurlogy 09/16/2017. Pronouncing clinician: Becki D Le Discharge Sum: Diag - PCOD Cause of : Cardiac arrest (respiratory failure, compassionate withdrawl of life support (hospice inpatient)) Discharge Sum: Summary - Date and Time Date of admission: 08/20/17 22:53 Date of : 11/22/17 Time of : 16:26 - Summary Details: This is a 77 yo Mandarin [place] citizen speaking male with DM, HTN, gout, remote hx tuberculosis, who presented to ER 08/20/17 with 3 day history of RUQ and thoracic pain and nausea. WBC on presentation was 16.3. He subsequently developed sinus tachycardia with frequent PACs. 08/20 CT showed multiple pulmonary masses consistent with metastatic disease, small bilat pleural effusions, right basilar consolidation near effusion, significant coronary artery atherosclerotic changes. 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 Halicat was called 08/21 after pts o2 sat dropped to low 80's % , tachypnea, labile HR. Hem/onc consulted, recommended bx lung nodules when status improves * 08/23 Transferred to ICU and subsequently intubated. WBC 28.5, CXR showing increasing pleural effusion * 08/24 Pulmonology consulted, believe prognosis not good, f/u results cytology pleural fluid, possible PNA * pleural fluid obtained 08/25 benign, shows neutorphils and rare macrophages * 08/26 echo shows grade 2 diastolic dysfunction. WBC now WNL. * 08/27 urology consuilted for ceja placement, s/p dilatation urethral stricture and ceja placement * 08/28 worsening lung infiltrates, failed weaning trials. Underwent CT lung bx. * 08/30 lung bx benign, pulmonary recommending rebiopsy * 08/31 temp up to 100.8, lung infiltrates improving with diuresis per CCM. CXR stable. Palliative care was consulted on 09/01/2017 to review goals of care. Pt encephalopathic could not participate in discussion. Met with son, daughter in law, in conference room, using [employer] translation services (provider Tamar) for 56 minutes. Discussion regarding the following: * Hospital course from admission until now * Current diagnoses, treatments in place, recent diagnostics. Also review possibility of second CT-guided biopsy * Much review of overall prognosis in light of significant pulmonary disease process at this point, renal issues, as well as CV process r/t ongoing lung issues, diuresis etc--reviewed that even with ongoing aggressive interventions including possibility of repeat biopsy, possibility of tracheostomy, PEG tube that patient may continue to experience decline in complications and high risk for continued general clinical deterioration, not clear that he would recover well enough to return home to prior status. Reviewed that even if biopsy was repeated not likely patient would be candidate for aggressive cancer treatment. * Alternatively explore ongoing aggressive treatments versus de-escalation and transition to comfort focus, with compassionate withdrawal of life support and administration of comfort focus treatments only. Review patient would be expected to have limited life expectancy in this case. * Review of CODE STATUS what resuscitation entails, benefits/burdens/ limitationsWife verbalizes not wanting to give up, and to do everything possible for patient. They wish for him to remain full code and receive every possible treatment to help for possible recovery. They are not interested in de -escalation of treatment at this time. == patient subsequently was trach and peg. == pulmonology and technical business systems analyst care continue to follow patient In the next 3 months: == biopsy never showed malignancy. Family decided to not do further biopsy, but base upon recommendation of pulmonology, do serial imaging and repeat CT scans. further . Subsequentl CT scan show that mass size decrease and not likely malignant. the challenge has been pt's copd. == course of condition complicated by severe spinal stenosis and cervical myelopathy . In which patient had neurosurgery for decompression. patient at first was functionally quadraplegic, but subequently did regain movements of all 4 extremeities in the following months. === Unfortunately pt was never able to wean off mechanical ventilation or progress to Passy dereck valve. Condition further complicated by respiratory distress, overload, easily desaturation and decompensation prompting several icu transfers from the prison care unit in the hospital. == mentation fluctated but never well enough to weigh and participate in goals of care. == In 11/16- patient desaturated again. Cardiology consulted 11/17- not a candidate for any invasavie procedure. manage medically. pt fluid overoald and right diastolic dysfunction. pt diuresied and placed on bipap == in the following days, pt again decompasated and require icu admission. After 90 plus days in the hospital, family (, son, daughter) do want pt to suffer any longer with mecanical ventilation, and life support, as pt has not improved to a functional level. Hospice was consulted and pt was admitted to hospice 11/21/2017, as an inpatient in the icu. patient was removed from life support 11/22/2017. patient breathing and heart stop and with in the ICU with hospice providing support. - Additional Data Confirmation of as documented by pronouncing clinician: no pulse (Becki Lujan) Family: at bedside Additional persons at bedside: garnishment specialist Attending/PCP notified?: Yes Attending physician: Alex Srivastava Was code activated?: Yes Autopsy requested?: No appeals examiner notified?: No Organ bank notified?: Yes Advance directives: Yes Hospice patient?: Yes
--- NOTE | 2017-11-30 22:43 | P.OP ---
- Preoperative Diagnosis (1) Cervical myelopathy - Postoperative Diagnosis (1) Cervical myelopathy Preoperative Diagnosis: Cervical myelopathy Postoperative Diagnosis: cervical myelopathy Date of procedure: 09/19/17 Procedure: C3-5 laminoplasty, allograft bone, Titanium plates Implants: titanium plates Surgeon: Anuj Victor MD Estimated blood loss (mL): 300 Pathology: none sent Operation and Findings: The patient was brought into the operating room and general endotracheal anesthesia induced without difficulty. Lines were established by anesthesia Knee high sequential compression devices were placed Appropriate timeout procedure was performed with all personnel present and in agreement The Bro 3 point fixation device was placed. The patient was in a cervical collar for positioning Leads for intraoperative neuro monitoring were placed in a baseline study obtained The patient was turned into prone position on the 3080 table on the Giovanni frame with the undersigned maintaining control of the head and neck. The head and neck were secured to the operating room table with the Bro adapter with the neck slightly flexed with 3-4 fingerbreadths between the chin and chest. The neck position was checked with intraoperative C-arm and felt to be satisfactory. The cervical collar was removed. All extremities were appropriately padded. The back of the head and neck were shaved with clippers and sterilely prepped and draped. 1% Xylocaine with epinephrine was used for local infiltration over the incision site was made in the midline posterior neck and carried sharply down to the spinous processes of C3-5 The microscope was used as needed during the decompression and graft and plate placement portion of the procedure.. On the right side, the muscle attachments were mostly left in place to the spinous process in the midline supraspinous ligament was left intact, and the Agustin elevator was used to expose the junction of the lamina and facet at the C3 -5 levels. On the right side, the TPS drill with the M8 valeriy was used to incise a trough in the dorsal cortical bone at the C3-5 levels. On the left side the posterior muscle attachments and fascia were incised with the Bovie and elevated away from the lamina and facet and spinous processes at the C3-5 levels On the left side. The TPS drill with the M8 valeriy was used to drill a 10 trough through both the dorsal and ventral cortical bone at the junction of the lamina and facet. A thin remaining shell of bone at the ventral lamina was removed with the 1 and 2 mm Kerrison rongeur. The lamina account officer was then used to elevate the left lamina away from the facet , creating a partial fracture through the lamina on the right side. Next a piece of properly prepared iliac tricortical allograft was cut to the appropriate dimensions as measured by the laminoplasty trials at the C3-5 levels. Prior to placement of the laminoplasty graft and plate, the inferior ventral C2 and superior ventral C6 lamina were removed with the TPS drill and the Kerrison rongeur to further decompress the dura at these levels. The prepared iliac autografts were then placed between the elevated laminar edge and decorticated facet at the left C3-5 levels, with the Synthes titanium laminoplasty plates pre- attached to the graft with 6 mm screws. The 4 through 6 mm screws were then used as needed to secure the laminoplasty plates to the edge of the lamina and through the facet and lateral mass at the left C3-5 levels. The entire construct was checked with intraoperative C-arm and also visualized under the microscope. The thin ligament dissector and blunt hook were used to carefully probe beneath the elevated lamina to ensure adequate decompression of the thecal sac. Care was taken to make sure that the edge of the lamina on the right side was not depressed into the spinal canal. The region was well irrigated with antibiotic irrigation. Bleeding was carefully controlled with bipolar forceps A 7 mm flat fluted drain was left at the operative site and brought out through an incision in the upper thoracic region and secured to the skin with nylon suture The closure was performed with 0 Vicryl interrupted for the deep and superficial fascia with 3-0 Vicryl interrupted subcutaneous closure and 4-0 Vicryl subcutaneous closure. A dressing of sterile Mastisol and Steri-Strips and a Primapore dressing was placed. The patient was placed back in a cervical collar and released from the Bro adapter and turned back into supine position on the recovery room bed. The Bro 3 point fixation device was then removed. The patient was taken to recovery room in stable condition All counts were correct at the end of the case. Estimated blood loss was 300 cc No specimen was sent to pathology Neural monitoring remained stable during the procedure
== END 2017-11-22 16:26 | disposition expired ==
LOC: N03 22:53 → H7ONC 10-09 15:06 → N03 10-09 15:16 → H7ONC 10-09 16:54 → N03 11-07 12:03 → H7ONC 11-09 21:41 → HIMC 11-20 13:25
PROVIDERS: ADMIT Family Medicine; ATTEND Family Medicine